=== PATIENT | female | born 1935 | race Caucasian/White ===

== ENCOUNTER → 2016-04-23 | Outpatient (CLI) | payer OTHER, BC ==
[~2016-04-23] MED LIST: ACET-1256 PO; ASPI81TA28 PO; ATOR-24 PO; CEFU500T16 PO; CIPR250T3 PO; CLOP1TAB15 PO; FURO-85 PO; HYDR-4717 PO; LISI40TA PO; MAGN250T16 PO; MAGN250T22 PO; METO100T14 PO; OXGN PO; VTMD PO
[2016-04-23 17:40] LABS: URINE APPEARANCE CLEAR (CLEAR); URINE BILIRUBIN NEG (NEG); URINE COLOR YELLOW; URINE EPITHELIAL CELL AUTO >30 /lpf (0-5); URINE NITRITE NEG (NEG); URINE PH 5.5 (4.5-7.5); URINE SPECIFIC GRAVITY 1.013 (1.000-1.030); UROBILINOGEN NEG (NEG); ZZUR CULT IF INDIC CLEAN CATCH YES
[2016-04-23 17:43] LABS: MANUAL MICROSCOPIC REQUIRED? NO; REVIEW REQ? YES
== END | disposition home or self-care (01) ==
LOC: C.LABBC 13:41
PROVIDERS: ATTEND Urology
DX: Z01.810 Encounter for preprocedural cardiovascular examination (principal); Z01.811 Encounter for preprocedural respiratory examination; Z01.812 Encounter for preprocedural laboratory examination; N39.0 Urinary tract infection, site not specified; N13.30 Unspecified hydronephrosis; N28.9 Disorder of kidney and ureter, unspecified

== ENCOUNTER 2016-05-14 09:01 | Day surgery (SDC) | payer OTHER, BC ==
[2016-04-21 10:09] VITALS: BMI 40.0
--- NOTE | 2016-04-21 10:48 | PAT Medication Instructions ---
Service Date Apr 21, 2016. Current Home Medication List Acetaminophen (Tylenol), 1,000 MG PO TID PRN for Pain Aspirin (Aspirin Ec), 81 MG PO QAM Atorvastatin (Lipitor), 40 MG PO HS Clopidogrel (Plavix), 75 MG PO QAM Ergocalciferol (Vitamin D), 1 TAB PO MONTHLY Furosemide (Lasix), 20 MG PO QAM Hydralazine Hcl (Apresoline), 50 MG PO TID Lisinopril (Zestril), 20 MG PO QAM Magnesium Oxide (Magnesium), 400 MG PO BID Metoprolol Tartrate (Lopressor) (Lopressor), 100 MG PO BID Oxygen (Oxygen), 2 LITERS NA HS Medication Instructions For Your Scheduled Surgery Aspirin (Aspirin Ec), 81 MG PO QAM (per surgeon instructions) Clopidogrel (Plavix), 75 MG PO QAM (per surgeon instructions) Ergocalciferol (Vitamin D), 1 TAB PO MONTHLY (continue as usual) - Hold the following medications the morning of surgery: Magnesium Oxide (Magnesium), 400 MG PO BID Lisinopril (Zestril), 20 MG PO QAM Furosemide (Lasix), 20 MG PO QAM - Take the following medications the morning of surgery with a sip of water: Metoprolol Tartrate (Lopressor) (Lopressor), 100 MG PO BID Hydralazine Hcl (Apresoline), 50 MG PO TID Acetaminophen (Tylenol), 1,000 MG PO TID PRN for Pain (if needed) - Take the following medications as scheduled the night before surgery: Oxygen (Oxygen), 2 LITERS NA HS Metoprolol Tartrate (Lopressor) (Lopressor), 100 MG PO BID Magnesium Oxide (Magnesium), 400 MG PO BID Hydralazine Hcl (Apresoline), 50 MG PO TID Atorvastatin (Lipitor), 40 MG PO HS Acetaminophen (Tylenol), 1,000 MG PO TID PRN for Pain If you have any questions please call us at [phone] or [phone] ( Cele) or [phone]
[2016-04-21 11:15] LABS: BASO % 0.5 %; BASO ABS # 0.04 K/uL (0-0.2); COMPLETE YES; EOS % 5.4 %; HEMATOCRIT 41.3 % (37-47); IG% 0.4 %; LYMPH % 25.5 %; MEAN CELL VOLUME 91.8 fL (80-100); MEAN CORPUSCULAR HEMOGLOBIN 29.6 pg (25-34); MEAN CORPUSCULAR HGB CONC 32.2 g/dl (32-36); MEAN PLATELET VOLUME 11.5 fL (7.4-10.4); MONO % 8.2 %; PLATELET COUNT 167 K/uL (130-400); WHITE BLOOD COUNT 7.84 K/uL (4.8-10.8)
--- NOTE | 2016-04-21 11:27 | DIAGNOSTIC IMAGING REPORT ---
CHEST PREADMISSION(PA/LAT) CLINICAL HISTORY: Preoperative chest COMPARISON STUDY: 08/21/2015 FINDINGS: The heart is mildly enlarged. There is no failure. There is no focal pulmonary consolidation. There are no pleural effusions. There is an old left lacunar fracture. There are small stable periarticular calcification superior to the left humerus.[ IMPRESSION: Mild cardiomegaly. No active disease in the chest. Electronically signed by: Shoaib Duke M.D. 04/21/2016 11:26 AM Dictated Date/Time: 04/21/2016 11:23 AM
[2016-04-21 11:49] LABS: BUN/CREATININE RATIO 26.1 (10-20); CALCIUM 9.2 mg/dl (8.5-10.1); CREATININE 1.8 mg/dl (0.60-1.20); POTASSIUM 4.9 mmol/L (3.5-5.1)
[~2016-05-14] VITALS: Ht 165.1 cm; Wt 109.4 kg
[~2016-05-14 09:01] MED LIST changes: -CEFU500T16 PO; -CIPR250T3 PO; +CIPROFLOXACIN / D5W 400 MG IV SCH; -MAGN250T16 PO; +SODIUM CHLORIDE 0.9% 1000ML 1,000 ML IV SCH
[2016-05-14 10:30] VITALS: BP 195/95; PULSE 61; TEMP 36.8; O2SAT 96; Ht 165.1 cm; Wt 109.4 kg
--- NOTE | 2016-05-14 12:05 | History & Physical Bridge Note ---
H&P Re-Evaluation Bridge Note: I have examined the patient, reviewed the History & Physical and in the interval since the performance of the History & Physical I have noted the following changes of clinical significance: No changes noted
[2016-05-14] MEDS ORDERED: PROPOFOL IV EMULSION 10 MG/ML 20 ML VIAL IV ONE (12:57)
[2016-05-14] MEDS ORDERED: LIDOCAINE HCL 2% 2 ML VIAL (20MG/ML) ONE (12:57)
[2016-05-14] MEDS ORDERED: ONDANSETRON INJ 2 MG/ML 2 ML VIAL ONE (12:58)
[2016-05-14] MEDS ORDERED: FENTANYL CITRATE INJ 50 MCG/1 ML 2 ML VIAL ONE (12:58)
[2016-05-14] MEDS ORDERED: MIDAZOLAM HCL 1 MG/ML 2ML VIAL ONE (12:58)
[2016-05-14] MEDS ORDERED: CONRAY 30% 150ML BOTTLE INSTIL ONE (13:52)
--- NOTE | 2016-05-14 13:53 | DIAGNOSTIC IMAGING REPORT ---
RETROGRADE INCLUDES KUB HISTORY: LT STENT EXCHANGE FLUOROSCOPY TIME: 29 seconds. FINDINGS: 2 fluoroscopic spot images were submitted for review. Initial image demonstrates a catheter with contrast opacification of the left ureter in a retrograde fashion. The second image demonstrates placement of a left ureteral stent. IMPRESSION: Fluoroscopy provided for left ureteral stent exchange. Electronically signed by: Prudencio Reyonso M.D. 05/14/2016 1:51 PM Dictated Date/Time: 05/14/2016 1:51 PM
--- NOTE | 2016-05-14 13:54 | [facility] Post Operative Brief Note ---
Immediate Operative Summary Operative Date May 14, 2016. Pre-Operative Diagnosis Left hydronephrosis with a history of sepsis and renal failure Post-Operative Diagnosis Same Procedure(s) Performed Cystoscopy, retrograde pylogram, and stent exchange, left Surgeon Dr Lawrence Hughes Maintenance Aide Surgeon(s) none Estimated Blood Loss 0 Findings Good stent position Specimens Bladder urine - routine culture and anaerobic culture Drains 6 fr 24 cm soft JJ stent Anesthesia MAC Complication(s) None Disposition Recovery Room / PACU
[2016-05-14] MEDS ORDERED: CIPR250T3 PO (13:55)
--- NOTE | 2016-05-14 13:58 | Discharge Instructions ---
Discharge Instructions Admission Reason for Admission: Hydronephrosis Discharge Discharge Diagnosis / Problem: L hydro, history of renal failure s/p stent exchange Discharge Goals Goal(s): Improve disease control, Therapeutic intervention Activity Recommendations Activity Limitations: resume your previous activity Lifting Limitations: none Exercise/Sports Limitations: none May Resume Sexual Activity: when tolerated Shower/Bathe: no limitations Driving or Machine Use: resume 1 day after discharge . Instructions / Follow-Up Instructions / Follow-Up As scheduled Discharge Diet Recommended Diet: Regular Diet Procedures Procedures Performed: Cystoscopy, retrograde pylogram, and stent exchange, left Pending Studies Studies pending at discharge: no Medical Emergencies . Who to Call and When: Medical Emergencies: If at any time you feel your situation is an emergency, please call 911 immediately. . Non-Emergent Contact Non-Emergency issues call your: Urologist Call Non-Emergent contact if: you have a fever, temperature is above 101, your pain is not controlled, your pain is worsening, your pain is unusual for you, your pain is concerning you, you have any medication questions . . "Provider Documentation" section prepared by Lawrence Hughes. VTE Core Measure Inpt VTE Proph given/why not?: SCD's
[2016-05-14] MEDS ORDERED: OXYCODONE/ACETAMINOPHEN 5-325 TAB PO PRN (14:00)
[2016-05-14] MEDS ORDERED: PHENAZOPYRIDINE HCL 100 MG TAB PO PRN (14:00)
--- NOTE | 2016-05-14 14:04 | OPERATIVE REPORT ---
DATE OF OPERATION: 05/14/2016 PREOPERATIVE DIAGNOSIS: History of left renal mass and left hydronephrosis with renal failure managed with a chronic indwelling stent. POSTOPERATIVE DIAGNOSIS: Same. PROCEDURE: Cystoscopy, left ureteral stent exchange, left retrograde pyelography. SURGEON: Dr. Lawrence Hughes. JOURNALISM INTERN: None. ANESTHESIA: Monitored anesthesia care with sedation. COMPLICATIONS: None. ESTIMATED BLOOD LOSS: Minimal. SPECIMENS SENT TO PATHOLOGY: Urine for culture and sensitivity. DRAINS LEFT IN PLACE: Include a 6-Ku[place]i 24 cm soft double-J ureteral Cook stent. FINDINGS: Good stent position on fluoroscopy. BRIEF HISTORY: Ms. Watson is a pleasant 81-year-old female who was seen as an outpatient for history of renal mass being actively observed and left-sided hydronephrosis with a history of sepsis and renal failure. She is being managed with a chronic indwelling stents and is tolerating it well. Her preoperative urine culture today demonstrates numerous contaminated organisms. She reports that her stent has been continued to be well tolerated. She is here today for a 6 month ureteral stent exchange. Please see H\T\P for further details. Intravenous ciprofloxacin provided for antibiotic coverage. DESCRIPTION OF PROCEDURE: The patient was properly identified and brought to the operative suite after identification of appropriate consent on the chart, monitored anesthesia care with sedation was initiated. The patient was prepped and draped in a standard fashion for this procedure. [employer]-out procedure was followed. A 22-Ku[place]i rigid cystoscope was passed into the bladder under direct visualization and unencrusted stent was appreciated within the bladder lumen. Minimal inflammation of the bladder was noted. Initial urine aliquot was taken and sent for culture and sensitivity. The ureter was noted to be cloudy or otherwise worrisome. The stent was grasped and brought to the level of the meatus. This was then cannulated using a sensor tipped wire and wire was advanced into the level of the left renal pelvis on fluoroscopic guidance. This was followed by an open-ended catheter and the kidney was opacified to ensure good stent position at the end. A sensor tip wire was replaced followed by a 6-[place]i 24 cm double-J ureteral stent with a good full coil present within the pelvis and a good full coil present within the bladder. Bladder was drained and cystoscope was removed, anesthesia was reversed. The patient was transferred to recovery room in stable condition. FOLLOWUP CARE: The patient will be discharged home with a short course of ciprofloxacin. She is instructed to contact our service should she note any fevers, chills, nausea, vomiting or other significant difficulties in the postoperative period. Postoperative appointment is confirmed. I attest to the content of the Intraoperative Record and any orders documented therein. Any exceptio ns are noted below.
--- NOTE | 2016-05-14 14:12 | Anesthesiology Progress Note ---
Anesthesia Post Op Note Date & Time May 14, 2016 at 14:12 Vital Signs Pain Intensity: 0 Vital Signs Past 12 Hours Date Time Temp Pulse Resp B/P Pulse Ox O2 Delivery O2 Flow Rate FiO2 05/14/16 14:10 64 16 146/70 93 Room Air 05/14/16 14:00 85 16 100 Mask 10 05/14/16 13:51 37.0 58 16 143/51 99 Mask 10 05/14/16 10:30 36.8 61 16 195/95 96 Room Air Notes Mental Status: alert / awake / arousable, participated in evaluation Pt Amnestic to Procedure: Yes Nausea / Vomiting: adequately controlled Pain: adequately controlled Airway Patency, RR, SpO2: stable & adequate BP & HR: stable & adequate Hydration State: stable & adequate Anesthetic Complications: no major complications apparent
[2016-05-14] MEDS ORDERED: ATROPINE SULFATE 0.1 MG/ML 5ML SYR IV PRN (14:15)
[2016-05-14] MEDS ORDERED: EpHEDrine SULFATE INJ 50 MG/ML AMP IV PRN (14:15)
[2016-05-14 14:20] VITALS: BP 141/69; PULSE 51; TEMP 36.6; O2SAT 93
[2016-05-14 14:52] VITALS: BP 152/65; PULSE 51; TEMP 36.5; O2SAT 93
[2016-07-22] MEDS ORDERED: MAGN250T16 PO (14:55)
[2016-11-24] MEDS ORDERED: ACET-1256 PO (09:46)
== END 2016-05-14 15:20 | disposition home or self-care (01) ==
LOC: C.ACU 09:01
PROVIDERS: ATTEND Urology
DX: N20.0 Calculus of kidney (principal); Z46.6 Encounter for fitting and adjustment of urinary device; N28.1 Cyst of kidney, acquired; I12.9 Hypertensive chronic kidney disease with stage 1 through stage 4 chronic kidney disease, or unspecified chronic kidney disease; R31.9 Hematuria, unspecified; N18.3 Chronic kidney disease, stage 3 (moderate); I25.10 Atherosclerotic heart disease of native coronary artery without angina pectoris; E78.5 Hyperlipidemia, unspecified; M10.9 Gout, unspecified; E11.9 Type 2 diabetes mellitus without complications; I87.2 Venous insufficiency (chronic) (peripheral); E55.9 Vitamin D deficiency, unspecified; Z86.19 Personal history of other infectious and parasitic diseases

== ENCOUNTER → 2016-06-08 | Outpatient (CLI) | payer OTHER, BC ==
[~2016-06-08] MED LIST changes: +CEFU500T16 PO; +CIPR250T3 PO; -CIPROFLOXACIN / D5W 400 MG IV SCH; +MAGN250T16 PO; -SODIUM CHLORIDE 0.9% 1000ML 1,000 ML IV SCH
[2016-06-08 14:55] LABS: BASO % 0.6 %; BASO ABS # 0.05 K/uL (0-0.2); COMPLETE YES; EOS % 4.6 %; HEMATOCRIT 41.1 % (37-47); IG% 0.2 %; LYMPH % 36.2 %; LYMPH ABS # 3.22 K/uL (1.2-3.4); MEAN CELL VOLUME 91.7 fL (80-100); MEAN CORPUSCULAR HEMOGLOBIN 29.5 pg (25-34); MEAN CORPUSCULAR HGB CONC 32.1 g/dl (32-36); MEAN PLATELET VOLUME 11.4 fL (7.4-10.4); MONO % 8.5 %; NEUT % 49.9 %; PLATELET COUNT 177 K/uL (130-400); RED BLOOD COUNT 4.48 M/uL (4.2-5.4)
[2016-06-08 14:59] LABS: URINE APPEARANCE CLEAR (CLEAR); URINE BILIRUBIN NEG (NEG); URINE COLOR YELLOW; URINE NITRITE NEG (NEG); URINE PH 6.5 (4.5-7.5); URINE SPECIFIC GRAVITY 1.009 (1.000-1.030); UROBILINOGEN NEG (NEG)
[2016-06-08 15:00] LABS: MANUAL MICROSCOPIC REQUIRED? NO; REVIEW REQ? NO
[2016-06-08 15:11] LABS: ALB/GLOB RATIO 0.8 (0.9-2); ALKALINE PHOSPHATASE 116 U/L (45-117); ALT/SGPT 19 U/L (12-78); AST/SGOT 18 U/L (15-37); BLOOD UREA NITROGEN 47 mg/dl (7-18); BUN/CREATININE RATIO 26.4 (10-20); CALCIUM 9.2 mg/dl (8.5-10.1); CARBON DIOXIDE 28 mmol/L (21-32); CHLORIDE 108 mmol/L (98-107); GLUCOSE 115 mg/dl (70-99); SODIUM 143 mmol/L (136-145)
[2016-06-08 15:22] LABS: URINE PROTIEN/CREAT RATIO 1.6 (0-0.2); URINE TOTAL PROTEIN 28.9 mg/dl (0-11.9)
[2016-06-08 15:22] LABS: ESTIMATED AVERAGE GLUCOSE 131 mg/dl; HA1C FLAG Normal (Normal)
== END | disposition home or self-care (01) ==
LOC: C.LABBC 09:49
PROVIDERS: ATTEND Internal Medicine Nephrology
DX: I12.9 Hypertensive chronic kidney disease with stage 1 through stage 4 chronic kidney disease, or unspecified chronic kidney disease (principal); N18.3 Chronic kidney disease, stage 3 (moderate); E11.22 Type 2 diabetes mellitus with diabetic chronic kidney disease; E55.9 Vitamin D deficiency, unspecified; N28.1 Cyst of kidney, acquired; N20.0 Calculus of kidney; R31.9 Hematuria, unspecified

== ENCOUNTER → 2016-08-05 | Day surgery (SDC) | payer OTHER, BC ==
[2016-07-22 14:55] VITALS: Ht 166.4 cm; Wt 110.0 kg
[~2016-08-05] VITALS: Ht 166.4 cm; Wt 110.0 kg
[~2016-08-05] MED LIST changes: +500ML BSS 0.3ML EPI 1:1000PF IRRIG ONE; +ACETAMINOPHEN 325 MG TAB PO PRN; +AMVISC PLUS 0.8ML SYRINGE INT OCU ONE; +ATROPINE SULFATE 0.1 MG/ML 5ML SYR IV PRN; +BETAXOLOL HCL 0.25% OP SUSP PER DROP CHARGE OPR SCH; +BRIMONIDINE TART 0.2% OP SOLN PER DROP CHARGE ONE; +BSS FLUSH ONE; -CIPR250T3 PO; +ENDOCOAT 0.85ML SYRINGE INT OCU ONE; +EpHEDrine SULFATE INJ 50 MG/ML AMP IV PRN; +EpINEphrine INJ 1MG/ML AMP 1 MG/ML AMP ONE; +GENERAL ORDER PROBLEM SCH; +LACTATED RINGER'S 1000ML 500 ML IV SCH; +LIDOCAINE 4% OP SOLN DROP CHARGE ONE; +LIDOCAINE 4% OP SOLN DROP CHARGE OPR SCH; +LIDOCAINE HCL 1% MPF 2 ML VIAL ONE; -MAGN250T22 PO; +MIDAZOLAM HCL 1 MG/ML 2ML VIAL ONE; +MIX: 4ML BSS 1ML EPI 1:1000 PF INSTIL ONE; +MOXIFLOXACIN OPH SOLN PER DROP CHARGE ONE; +OCUCOAT 1 ML SOLN IO ONE; +POVIDONE-IODINE OP SOLN 30 ML BTL ONE; +PROPARACAINE 0.5% OP SOLN PER DROP CHARGE OPR SCH; +TOBRAMYCIN/DEXAMETHASONE OPH OINT PER APPLN CHARGE ONE
[2016-08-05] MEDS: PHENYLEPHRINE HCL 2.5% OP SOLN PER DROP CHARGE OPR SCH ×2 (06:44→06:49)
[2016-08-05] MEDS: TROPICAMIDE 1% OP SOLN PER DROP CHARGE OPR SCH ×2 (06:45→06:50)
[2016-08-05] MEDS: CYCLOPENTOLATE HCL 1% OP SOLN PER DROP CHARGE OPR SCH ×2 (06:46→06:51)
[2016-08-05] MEDS: MOXIFLOXACIN OPH SOLN PER DROP CHARGE OPR SCH ×2 (06:47→06:57)
--- NOTE | 2016-08-05 07:49 | Discharge Instructions-SurgCtr ---
Discharge Instructions Date of Service August 05, 2016. Visit Reason for Visit: Cataract Right Eye Discharge Discharge Diagnosis / Problem: lens implant right eye Discharge Goals Goal(s): Improve function Activity Recommendations Activity Limitations: resume your previous activity Lifting Limitations: no more than 10 pounds Exercise/Sports Limitations: gradually increase as tolerated May Resume Sexual Activity: when tolerated Shower/Bathe: tomorrow Driving or Machine Use: resume 1 day after discharge Anesthesia . Post Anesthesia Instructions: If you have had General Anesthesia or IV Sedation: * Do not drive today. * Resume driving when surgeon permits. * Do not make important decisions or sign legal documents today. * Call surgeon for: 1. Temperature elevations greater than 101 degrees F. 2. Uncontrollable pain. 3. Excessive bleeding. 4. Persistent nausea and vomiting. 5. Medication intolerance (nausea, vomiting or rash). * For nausea and vomiting use only clear liquids such as: tea, soda, bouillon until nausea subsides, then gradually increase diet as tolerated. * If you have any concerns or questions, call your surgeon's office. If physician is unavailable and it is an emergency, call 911 or go to the nearest emergency room. . Instructions / Follow-Up Instructions / Follow-Up ACTIVITY RECOMMENDATIONS: * Light activities. * Mild irritation and blurred vision are common for the first few days. * You may walk outside, read, watch television. * Redness around the white part of the eye is common. MEDICATIONS: Resume previous medications unless instructed otherwise by your surgeon. Start all eye drops at 1 pm today: * Eye drops (today and tomorrow): Prednisone - one drop in operative eye every 3 hours while awake Ofloxacin - one drop in operative eye every 3 hours while awake Ilevro - one drop in operative eye once a day SPECIAL CARE INSTRUCTIONS: * Tape plastic shield over eye to sleep at night. Call your doctor at with any concerns or problems. FOLLOW UP VISIT: Follow-up with Dr Arreola at [place] office as scheduled. Diet Recommendations Home Diet: no limitations Procedures Procedures Performed: Right Cataract Phacoemulsification With Intraocular Lens Implant Pending Studies Studies pending at discharge: no Medical Emergencies . Who to Call and When: Medical Emergencies: If at any time you feel your situation is an emergency, please call 911 immediately. . Non-Emergent Contact Non-Emergency issues call your: Web Applications Programmer Call Non-Emergent contact if: your pain is not controlled [phone] . . "Provider Documentation" section prepared by Nick Arreola. .
--- NOTE | 2016-08-05 07:51 | [facility] Operative Report ---
Operative Report Date of Service August 05, 2016. Operative Report 1. PREOPERATIVE DIAGNOSIS: Senile nuclear cataract, right eye. 2. POSTOPERATIVE DIAGNOSIS: Senile nuclear cataract, right eye. 3. PROCEDURE: Phacoemulsification of right cataract with posterior chamber lens implant, type Bausch & Lomb, model MX60, power +22 diopters. ANESTHESIA: Local standby. SURGEON: Dr. Arreola. COMPLICATIONS: None. OPERATING TIME: 10 minutes. 4. OPERATION AND FINDINGS: DESCRIPTION OF PROCEDURE: The right pupil was dilated. The anesthetic was administered using a topical technique. The right eye was prepped and draped. A speculum was placed. A clear corneal incision was formed. The chamber was filled with Amvisc Plus and Endocoat. Epinephrine solution was used. A paracentesis was placed. A capsulorrhexis was performed. The nucleus was hydrodissected. The lens was removed with phacoemulsification. Time was 6.11 seconds. The aspiration unit was used to remove the cortex. The capsule was filled with Amvisc Plus. The lens implant was folded and placed into the capsule. The incision was hydrated. The Amvisc was aspirated. The wound was secure. The chamber was deep. The pupil was round. Brimonidine, TobraDex ointment and Vigamox solution were placed. The speculum was removed. The patient was returned to the Recovery Room in stable condition. I attest to the content of the Intraoperative Record and any orders documented therein. Any exceptions are noted below. The scribe's documentation has been prepared in my presence, under my direction and personally reviewed by me in its entirety. I confirm that the note above accurately reflects all work, treatment, procedures, and medical decision making performed by me. I personally scribed for Nick Arreola M.D. ([email or web address]) on 08/05/16 at 07:51. Electronically submitted by Nalini Noel ([facility]).
[2016-08-05 07:53] VITALS: TEMP 37.3
[2016-08-05 08:14] VITALS: BP 158/79; PULSE 66; O2SAT 95
--- NOTE | 2016-08-05 08:17 | Anesthesia Progress Nt - [facility] ---
Anesthesia Post Op Note Date & Time August 05, 2016 at 08:17 Vital Signs Pain Intensity: 0 Vital Signs Past 12 Hours Date Time Temp Pulse Resp B/P Pulse Ox O2 Delivery O2 Flow Rate FiO2 08/05/16 08:14 66 18 158/79 95 Room Air 08/05/16 07:53 37.3 68 16 179/73 95 Room Air 08/05/16 06:34 36.7 63 16 189/71 95 Room Air Notes Mental Status: alert / awake / arousable, participated in evaluation Pt Amnestic to Procedure: Yes Nausea / Vomiting: adequately controlled Pain: adequately controlled Airway Patency, RR, SpO2: stable & adequate BP & HR: stable & adequate Hydration State: stable & adequate Anesthetic Complications: no major complications apparent
== END | disposition home or self-care (01) ==
LOC: X.SURG 06:07
PROVIDERS: ATTEND Specialist
DX: H25.11 Age-related nuclear cataract, right eye (principal); I48.91 Unspecified atrial fibrillation; I12.9 Hypertensive chronic kidney disease with stage 1 through stage 4 chronic kidney disease, or unspecified chronic kidney disease; E11.22 Type 2 diabetes mellitus with diabetic chronic kidney disease; N18.9 Chronic kidney disease, unspecified; I25.10 Atherosclerotic heart disease of native coronary artery without angina pectoris; Z88.1 Allergy status to other antibiotic agents; Z90.89 Acquired absence of other organs; Z98.890 Other specified postprocedural states; I25.2 Old myocardial infarction; G47.33 Obstructive sleep apnea (adult) (pediatric); E66.9 Obesity, unspecified; Z68.39 Body mass index [BMI] 39.0-39.9, adult

== ENCOUNTER → 2016-08-26 | Day surgery (SDC) | payer OTHER, BC ==
[2016-08-19 11:13] VITALS: Ht 166.4 cm; Wt 110.0 kg
[~2016-08-26] VITALS: Ht 166.4 cm; Wt 110.0 kg
[~2016-08-26] MED LIST changes: +AcetaZOLAMIDE 250 MG TAB PO SCH; +BETAXOLOL HCL 0.25% OP SUSP PER DROP CHARGE OPL SCH; -BETAXOLOL HCL 0.25% OP SUSP PER DROP CHARGE OPR SCH; -BSS FLUSH ONE; -EpHEDrine SULFATE INJ 50 MG/ML AMP IV PRN; -GENERAL ORDER PROBLEM SCH; +LABETALOL HCL IV 5 MG/ML 20ML IV ONE; +LIDOCAINE 4% OP SOLN DROP CHARGE OPL SCH; -LIDOCAINE 4% OP SOLN DROP CHARGE OPR SCH; +PROPARACAINE 0.5% OP SOLN PER DROP CHARGE OPL SCH; -PROPARACAINE 0.5% OP SOLN PER DROP CHARGE OPR SCH
[2016-08-26] MEDS: PHENYLEPHRINE HCL 2.5% OP SOLN PER DROP CHARGE OPL SCH ×2 (08:57→09:04)
[2016-08-26] MEDS: TROPICAMIDE 1% OP SOLN PER DROP CHARGE OPL SCH ×2 (08:58→09:05)
[2016-08-26] MEDS: CYCLOPENTOLATE HCL 1% OP SOLN PER DROP CHARGE OPL SCH ×2 (08:59→09:06)
[2016-08-26] MEDS: MOXIFLOXACIN OPH SOLN PER DROP CHARGE OPL SCH ×2 (09:00→09:10)
--- NOTE | 2016-08-26 10:08 | Discharge Instructions-SurgCtr ---
Discharge Instructions Date of Service Aug 26, 2016. Visit Reason for Visit: Cataract Left Eye Discharge Discharge Diagnosis / Problem: lens implant left eye Discharge Goals Goal(s): Improve function Activity Recommendations Activity Limitations: resume your previous activity Lifting Limitations: no more than 10 pounds Exercise/Sports Limitations: gradually increase as tolerated May Resume Sexual Activity: when tolerated Shower/Bathe: tomorrow Driving or Machine Use: resume 1 day after discharge Anesthesia . Post Anesthesia Instructions: If you have had General Anesthesia or IV Sedation: * Do not drive today. * Resume driving when surgeon permits. * Do not make important decisions or sign legal documents today. * Call surgeon for: 1. Temperature elevations greater than 101 degrees F. 2. Uncontrollable pain. 3. Excessive bleeding. 4. Persistent nausea and vomiting. 5. Medication intolerance (nausea, vomiting or rash). * For nausea and vomiting use only clear liquids such as: tea, soda, bouillon until nausea subsides, then gradually increase diet as tolerated. * If you have any concerns or questions, call your surgeon's office. If physician is unavailable and it is an emergency, call 911 or go to the nearest emergency room. . Instructions / Follow-Up Instructions / Follow-Up ACTIVITY RECOMMENDATIONS: * Light activities. * Mild irritation and blurred vision are common for the first few days. * You may walk outside, read, watch television. * Redness around the white part of the eye is common. MEDICATIONS: Resume previous medications unless instructed otherwise by your surgeon. Start all eye drops at 1 pm today: * Eye drops (today and tomorrow): Durezol - one drop in operative eye every 3 hours while awake Ofloxacin - one drop in operative eye every 3 hours while awake SPECIAL CARE INSTRUCTIONS: * Tape plastic shield over eye to sleep at night. Call your doctor at with any concerns or problems. FOLLOW UP VISIT: Follow-up with Dr Arreola at [place] office as scheduled. Diet Recommendations Home Diet: no limitations Procedures Procedures Performed: cataract extraction with lens implant Pending Studies Studies pending at discharge: no Medical Emergencies . Who to Call and When: Medical Emergencies: If at any time you feel your situation is an emergency, please call 911 immediately. . Non-Emergent Contact Non-Emergency issues call your: Chocolate Maker Call Non-Emergent contact if: your pain is not controlled [phone] . . "Provider Documentation" section prepared by Nick Arreola. .
--- NOTE | 2016-08-26 10:10 | [facility] Operative Report ---
Operative Report Date of Service Aug 26, 2016. Operative Report 1. PREOPERATIVE DIAGNOSIS: Senile nuclear cataract, left eye. 2. POSTOPERATIVE DIAGNOSIS: Senile nuclear cataract, left eye. 3. PROCEDURE: Phacoemulsification of left cataract with posterior chamber lens implant, type Bausch & Lomb, model MX60, power +22 diopters. ANESTHESIA: Local standby. SURGEON: Dr. Arreola. COMPLICATIONS: None. OPERATING TIME: 10 minutes. 4. OPERATION AND FINDINGS: DESCRIPTION OF PROCEDURE: The left pupil was dilated. The anesthetic was administered using a topical technique. The left eye was prepped and draped. A speculum was placed. A clear corneal incision was formed. The chamber was filled with Amvisc Plus and Endocoat. Epinephrine solution was used. A paracentesis was placed. A capsulorrhexis was performed. The nucleus was hydrodissected. A lens was removed with phacoemulsification. Time was 9.18 seconds. The aspiration unit was used to remove the cortex. The capsule was filled with Amvisc Plus. The lens implant was folded and placed into the capsule. The incision was hydrated. The Amvisc was aspirated. The wound was secure. The chamber was deep. The pupil was round. Brimonidine, TobraDex ointment and Vigamox solution were placed. The speculum was removed. The patient was returned to the Recovery Room in stable condition. I attest to the content of the Intraoperative Record and any orders documented therein. Any exceptions are noted below. The scribe's documentation has been prepared in my presence, under my direction and personally reviewed by me in its entirety. I confirm that the note above accurately reflects all work, treatment, procedures, and medical decision making performed by me. I personally scribed for Nick Arreola M.D. ([email or web address]) on 08/26/16 at 10:10. Electronically submitted by Nalini Noel ([email or web address]).
[2016-08-26 10:11] VITALS: TEMP 36.9
--- NOTE | 2016-08-26 10:24 | Anesthesia Progress Nt - [facility] ---
Anesthesia Post Op Note Date & Time Aug 26, 2016 at 10:24 Vital Signs Pain Intensity: 0 Vital Signs Past 12 Hours Date Time Temp Pulse Resp B/P (MAP) Pulse Ox O2 Delivery O2 Flow Rate FiO2 08/26/16 10:11 36.9 76 16 189/80 (116) 95 Room Air 08/26/16 08:45 36.9 67 20 176/71 (106) 96 Room Air Notes Mental Status: alert / awake / arousable, participated in evaluation Pt Amnestic to Procedure: Yes Nausea / Vomiting: adequately controlled Pain: adequately controlled Airway Patency, RR, SpO2: stable & adequate BP & HR: stable & adequate Hydration State: stable & adequate Anesthetic Complications: no major complications apparent
[2016-08-26 10:35] VITALS: BP 187/62; PULSE 56; O2SAT 95
== END | disposition home or self-care (01) ==
LOC: X.SURG 08:10
PROVIDERS: ATTEND Specialist
DX: H25.12 Age-related nuclear cataract, left eye (principal); I10 Essential (primary) hypertension; I51.9 Heart disease, unspecified

== ENCOUNTER → 2016-10-20 | Outpatient (CLI) | payer OTHER, BC ==
[~2016-10-20] MED LIST changes: -500ML BSS 0.3ML EPI 1:1000PF IRRIG ONE; -ACETAMINOPHEN 325 MG TAB PO PRN; -AMVISC PLUS 0.8ML SYRINGE INT OCU ONE; -ATROPINE SULFATE 0.1 MG/ML 5ML SYR IV PRN; -AcetaZOLAMIDE 250 MG TAB PO SCH; -BETAXOLOL HCL 0.25% OP SUSP PER DROP CHARGE OPL SCH; -BRIMONIDINE TART 0.2% OP SOLN PER DROP CHARGE ONE; -ENDOCOAT 0.85ML SYRINGE INT OCU ONE; -EpINEphrine INJ 1MG/ML AMP 1 MG/ML AMP ONE; -LABETALOL HCL IV 5 MG/ML 20ML IV ONE; -LACTATED RINGER'S 1000ML 500 ML IV SCH; -LIDOCAINE 4% OP SOLN DROP CHARGE ONE; -LIDOCAINE 4% OP SOLN DROP CHARGE OPL SCH; -LIDOCAINE HCL 1% MPF 2 ML VIAL ONE; -MIDAZOLAM HCL 1 MG/ML 2ML VIAL ONE; -MIX: 4ML BSS 1ML EPI 1:1000 PF INSTIL ONE; -MOXIFLOXACIN OPH SOLN PER DROP CHARGE ONE; -OCUCOAT 1 ML SOLN IO ONE; -POVIDONE-IODINE OP SOLN 30 ML BTL ONE; -PROPARACAINE 0.5% OP SOLN PER DROP CHARGE OPL SCH; -TOBRAMYCIN/DEXAMETHASONE OPH OINT PER APPLN CHARGE ONE
[2016-10-20 13:47] LABS: ESTIMATED AVERAGE GLUCOSE 128 mg/dl; HA1C FLAG Normal (Normal)
[2016-10-20 14:07] LABS: CHOLESTEROL/HDL RATIO 3.1; THYROID STIMULATING HORMONE 2.18 uIu/ml (0.300-4.500)
== END | disposition home or self-care (01) ==
LOC: C.LABBC 09:42
PROVIDERS: ATTEND Internal Medicine Geriatric Medicine
DX: Z00.00 Encounter for general adult medical examination without abnormal findings (principal); E11.9 Type 2 diabetes mellitus without complications

== ENCOUNTER → 2016-11-24 | Outpatient (CLI) | payer OTHER, BC ==
--- NOTE | 2016-11-24 11:53 | DIAGNOSTIC IMAGING REPORT ---
MRI OF THE ABDOMEN WITHOUT IV CONTRAST CLINICAL HISTORY: Chronic kidney disease. COMPARISON STUDY: Abdominal CT dated 08/21/2015. Abdominal MRI dated 05/10/2015 an 02/02/2013. TECHNIQUE: MRI of the abdomen is performed utilizing various T1 and T2-weighted sequences in the axial and coronal planes. IV contrast was not administered for this examination. The examination is degraded by large body habitus, motion artifact, and lack of IV contrast. FINDINGS: Lung bases: No pleural effusion is identified. A hiatal hernia is noted. No pericardial effusion is seen. Liver: The unenhanced liver is normal in size, contour, and signal intensity. There is no intrahepatic biliary ductal dilatation. Gallbladder: Unremarkable. Spleen: Normal in size and signal intensity. Pancreas: The pancreas appears atrophic. Multiple tiny pancreatic cystic lesions measuring up to 9 mm are similar to prior studies. Adrenal glands: Unremarkable. Kidneys: The unenhanced kidneys are atrophic. Foci of cortical scarring are present in both kidneys. No hydronephrosis is seen. A complex 2.7 cm lesion arising from the interpolar right kidney, and a 2.8 cm complex lesion in the interpolar left kidney have not changed from a prior studies. Additional subcentimeter lesions are also unchanged. Abdominal aorta: Normal in course and caliber. Atherosclerotic irregularity is observed. Bowel: There is no evidence of bowel obstruction. Peritoneum: No abdominal ascites is seen. Lymphadenopathy: None. Skeletal structures: No destructive bony lesion is suggested. Spondylotic change is observed. IMPRESSION: 1. The kidneys are atrophic and demonstrates foci of cortical scarring. Left-sided hydronephrosis has resolved from 08/21/2015. 2. Bilateral complex renal lesions are unchanged from prior studies. These likely represent complex/hemorrhagic cyst but cannot be definitively characterized without IV contrast. 3. Subcentimeter cystic pancreatic lesions are unchanged from prior studies and are of doubtful significance given long-term stability. 4. Additional findings as above. Electronically signed by: Ervin Cat M.D. 11/24/2016 11:51 AM Dictated Date/Time: 11/24/2016 11:40 AM
== END | disposition home or self-care (01) ==
LOC: C.MRI 10:56
PROVIDERS: ATTEND Urology
DX: N18.3 Chronic kidney disease, stage 3 (moderate) (principal); K86.9 Disease of pancreas, unspecified; N28.9 Disorder of kidney and ureter, unspecified

== ENCOUNTER 2016-12-10 06:01 | Day surgery (SDC) | payer OTHER, BC ==
[2016-11-24 09:48] VITALS: BMI 42.0
--- NOTE | 2016-11-24 10:21 | PAT Medication Instructions ---
Service Date Nov 24, 2016. Current Home Medication List Acetaminophen (Tylenol), 1,000 MG PO TID PRN for RN Aspirin (Aspirin Ec), 81 MG PO QAM Atorvastatin (Lipitor), 40 MG PO HS Clopidogrel (Plavix), 75 MG PO QAM Ergocalciferol (Vitamin D), 1 TAB PO MONTHLY Furosemide (Lasix), 20 MG PO QAM Home O2 Therapy (Oxygen), 2 LITERS PO HS Hydralazine Hcl (Apresoline), 50 MG PO TID Lisinopril (Zestril), 20 MG PO QAM Magnesium Oxide (Mg Supplement (Magnesium Oxide), 1 TAB PO DIRECTED Metoprolol Tartrate (Lopressor) (Lopressor), 100 MG PO BID Medication Instructions For Your Scheduled Surgery Ergocalciferol (Vitamin D), 1 TAB PO MONTHLY - Check with surgeon for surgeon/locate technician for instructions: Clopidogrel (Plavix), 75 MG PO QAM Aspirin (Aspirin Ec), 81 MG PO QAM - Hold the following medications the morning of surgery: Furosemide (Lasix), 20 MG PO QAM Lisinopril (Zestril), 20 MG PO QAM Magnesium Oxide (Mg Supplement (Magnesium Oxide), 1 TAB PO DIRECTED - Take the following medications the morning of surgery with a sip of water: Metoprolol Tartrate (Lopressor) (Lopressor), 100 MG PO BID Hydralazine Hcl (Apresoline), 50 MG PO TID Acetaminophen (Tylenol), 1,000 MG PO TID PRN for RN (if needed) - Take the following medications as scheduled the night before surgery: Metoprolol Tartrate (Lopressor) (Lopressor), 100 MG PO BID Hydralazine Hcl (Apresoline), 50 MG PO TID Home O2 Therapy (Oxygen), 2 LITERS PO HS Acetaminophen (Tylenol), 1,000 MG PO TID PRN for RN (if needed) Atorvastatin (Lipitor), 40 MG PO HS If you have any questions please call us at [phone] or [phone] or [phone]
[2016-11-24 11:05] LABS: BASO % 0.4 %; BASO ABS # 0.03 K/uL (0-0.2); COMPLETE YES; EOS % 4.9 %; HEMATOCRIT 38.7 % (37-47); IG% 0.3 %; LYMPH % 33.5 %; LYMPH ABS # 2.33 K/uL (1.2-3.4); MEAN CELL VOLUME 93.9 fL (80-100); MEAN CORPUSCULAR HEMOGLOBIN 29.6 pg (25-34); MEAN CORPUSCULAR HGB CONC 31.5 g/dl (32-36); MEAN PLATELET VOLUME 11.1 fL (7.4-10.4); MONO % 7.3 %; NEUT % 53.6 %; PLATELET COUNT 158 K/uL (130-400); RED BLOOD COUNT 4.12 M/uL (4.2-5.4); WHITE BLOOD COUNT 6.95 K/uL (4.8-10.8)
[2016-11-24 11:08] LABS: URINE APPEARANCE CLEAR (CLEAR); URINE BILIRUBIN NEG (NEG); URINE COLOR YELLOW; URINE EPITHELIAL CELL AUTO >30 /lpf (0-5); URINE NITRITE POS (NEG); URINE PH 6.5 (4.5-7.5); URINE SPECIFIC GRAVITY 1.014 (1.000-1.030); UROBILINOGEN NEG (NEG)
[2016-11-24 11:12] LABS: MANUAL MICROSCOPIC REQUIRED? NO; REVIEW REQ? NO
[2016-11-24 11:33] LABS: BUN/CREATININE RATIO 26.4 (10-20); CALCIUM 9.2 mg/dl (8.5-10.1); CREATININE 1.8 mg/dl (0.60-1.20); POTASSIUM 4.8 mmol/L (3.5-5.1)
[~2016-12-10] VITALS: Ht 165.1 cm; Wt 114.5 kg
[~2016-12-10 06:01] MED LIST changes: -CEFU500T16 PO; +CIPROFLOXACIN / D5W 400 MG IV SCH; +SODIUM CHLORIDE 0.9% 1000ML 1,000 ML IV SCH
[2016-12-10] MEDS ORDERED: CEFU500T16 PO (06:36)
[2016-12-10 06:39] VITALS: BP 186/80; PULSE 57; TEMP 37; O2SAT 96; Ht 165.1 cm; Wt 114.5 kg
--- NOTE | 2016-12-10 07:02 | History & Physical Bridge Note ---
H&P Re-Evaluation Bridge Note: I have examined the patient, reviewed the History & Physical and in the interval since the performance of the History & Physical I have noted the following changes of clinical significance: cysto, left stent exchange.
[2016-12-10] MEDS ORDERED: FENTANYL CITRATE INJ 50 MCG/1 ML 2 ML VIAL ONE (07:26)
[2016-12-10] MEDS ORDERED: MIDAZOLAM HCL 1 MG/ML 2ML VIAL ONE (07:26)
[2016-12-10] MEDS ORDERED: PROPOFOL IV EMULSION 10 MG/ML 20 ML VIAL IV ONE (07:27)
[2016-12-10] MEDS ORDERED: LIDOCAINE HCL 2% 2 ML VIAL (20MG/ML) ONE (07:27)
[2016-12-10] MEDS ORDERED: EpHEDrine SULFATE INJ 50 MG/ML AMP IV PRN (08:00)
[2016-12-10] MEDS ORDERED: ATROPINE SULFATE 0.1 MG/ML 5ML SYR IV PRN (08:00)
[2016-12-10] MEDS ORDERED: CONRAY 30% 150ML BOTTLE ONE (08:03)
[2016-12-10] MEDS ORDERED: CEFAZOLIN SOD 1 GM VIAL ONE (08:35)
[2016-12-10] MEDS ORDERED: OXYCODONE/ACETAMINOPHEN 5-325 TAB PO PRN (08:45)
[2016-12-10] MEDS ORDERED: PHENAZOPYRIDINE HCL 100 MG TAB PO PRN (08:45)
--- NOTE | 2016-12-10 08:45 | Discharge Instructions ---
Discharge Instructions Date of Service Dec 10, 2016. Admission Reason for Admission: Hydronephrosis Discharge Discharge Diagnosis / Problem: L hydro s/p stent exchange Discharge Goals Goal(s): Improve function, Therapeutic intervention Activity Recommendations Activity Limitations: as noted below Lifting Limitations: no more than 25 pounds, gradually increase as tolerated Exercise/Sports Limitations: rest today, gradually increase as tolerated May Resume Sexual Activity: when tolerated Shower/Bathe: no limitations Driving or Machine Use: resume 1 day after discharge . Instructions / Follow-Up Instructions / Follow-Up As scheduled in office Discharge Diet Recommended Diet: Regular Diet Procedures Procedures Performed: Cystoscopy Left Retrograde Pyelogram; Left Stent Exchange Pending Studies Studies pending at discharge: no Laboratory Results Hemoglobin A1c Test 10/20/16 09:47 Range/Units Estimated Average Glucose 128 mg/dl Hemoglobin A1c 6.1 H 4.5-5.6 % Lipid Panel Test 10/20/16 09:47 Range/Units Triglycerides Level 194 H 0-150 mg/dl Cholesterol Level 159 0-200 mg/dl HDL Cholesterol 51 mg/dl Cholesterol/HDL Ratio 3.1 LDL Cholesterol, Calculated 69 mg/dl Medical Emergencies . Who to Call and When: Medical Emergencies: If at any time you feel your situation is an emergency, please call 911 immediately. . Non-Emergent Contact Non-Emergency issues call your: Urologist Call Non-Emergent contact if: you have a fever, temperature is above 101, your pain is not controlled, your pain is worsening, your pain is unusual for you, your pain is concerning you, you have any medication questions . . "Provider Documentation" section prepared by Lawrence Hughes. . VTE Core Measure Inpt VTE Proph given/why not?: SCD's
--- NOTE | 2016-12-10 08:46 | [facility] Post Operative Brief Note ---
Immediate Operative Summary Operative Date Dec 10, 2016. Pre-Operative Diagnosis Hydronephrosis of left kidney; recurrent UTI; renal lesion Post-Operative Diagnosis Same as preop Procedure(s) Performed Cystoscopy Left Retrograde Pyelogram; Left Stent Exchange Surgeon Dr. Ricardo Hughes Code Enforcement Supervisor Surgeon(s) NA Estimated Blood Loss 0 ml Findings Good stent position after completion on fluoro Specimens None, as per surgeon Drains 6 fr 24 cm firm L cook ureteral stent Anesthesia MAC Complication(s) None Disposition Recovery Room / PACU
--- NOTE | 2016-12-10 08:49 | [facility] Operative Report ---
Operative Report Operative Date Dec 10, 2016. Pre-Operative Diagnosis Hydronephrosis of left kidney; recurrent UTI; renal lesion Post-Operative Diagnosis Same as preop Procedure(s) Performed Cystoscopy Left Retrograde Pyelogram; Left Stent Exchange Surgeon Dr. Ricardo Hughes Day Care Home Provider Surgeon(s) NA Estimated Blood Loss 0 ml Findings Good stent position after completion on fluoro Specimens None, as per surgeon Drains 6 fr 24 cm firm L cook ureteral stent Anesthesia MAC Complication(s) None Disposition Recovery Room / PACU Indications Pleasant 81-year-old female who had seen as an outpatient for history of left-sided renal obstruction with previous renal failure and urosepsis. She has been managed with an indwelling left ureteral stent which is currently being changed every 6 months. She is tolerating this well. She has been pretreated for her positive urine culture with appropriate antibiotics 2 days. No other complaints. SCDs used for DVT prophylaxis and appropriate culture specific IV antibiotics are also used. Please see H&P for further details. Description of Procedure Patient was properly identified and brought to the operative suite after identification of appropriate consent of the chart. Monitored anesthesia care with sedation was initiated and patient was prepped and draped in the standard fashion for this procedure. Full timeout procedure was followed. 22 Canadian rigid cystoscope was passed in the bladder under direct visualization and the tip of the stent was grasped and brought to the meatus. [id number] bladder inflammation, consistent with the patient's previous findings are noted. Stent was cannulated using a sensor tip wire which was able to be advanced through the stent up to the level of the renal pelvis. Stent was noted to be minimally encrusted and patent. A open-ended catheter was advanced up to the level of the left renal pelvis which was opacified using contrast demonstrating no significant filling defects or dilation. Sensor tip wire was replaced and followed with a 6 Canadian 24 cm double-J firm Cook ureteral stent. Full coil was present within the renal pelvis and a full coil present within the bladder with a hydronephrotic drip. Bladder was drained and cystoscope was removed. Anesthesia was reversed and patient was transferred the recovery room in stable condition. Follow-up care: No new prescriptions are provided. Patient complete antibiotics as prescribed. Outpatient postoperative check is confirmed. Patient to contact that should she suffer from any difficulties in the postoperative period such as fevers, chills, nausea, vomiting or other adverse symptoms. I attest to the content of the Intraoperative Record and any orders documented therein. Any exceptions are noted below.
--- NOTE | 2016-12-10 08:57 | Anesthesiology Progress Note ---
Anesthesia Post Op Note Date & Time Dec 10, 2016 at 08:57 Vital Signs Pain Intensity: 0 Vital Signs Past 12 Hours Date Time Temp Pulse Resp B/P (MAP) Pulse Ox O2 Delivery O2 Flow Rate FiO2 12/10/16 08:45 55 15 135/56 98 Oxymask 10 12/10/16 08:44 36.0 59 19 150/63 98 Oxymask 10 12/10/16 06:39 37 57 18 186/80 (115) 96 Room Air Notes Mental Status: alert / awake / arousable, participated in evaluation Pt Amnestic to Procedure: Yes Nausea / Vomiting: adequately controlled Pain: adequately controlled Airway Patency, RR, SpO2: stable & adequate BP & HR: stable & adequate Hydration State: stable & adequate Anesthetic Complications: no major complications apparent
--- NOTE | 2016-12-10 09:10 | DIAGNOSTIC IMAGING REPORT ---
FLUOROSCOPIC IMAGES FROM LEFT RETROGRADE EXAM CLINICAL HISTORY: LEFT RETROGRADE AND STENT EXCHANGE COMPARISON STUDY: Retrograde exam May 14, 2016 and MRI of the abdomen November 24, 2016. Fluoroscopy time: 1 minute and 27 seconds. FINDINGS: 5 fluoroscopic images were submitted for interpretation. Initial image demonstrates a left ureteral stent. There is opacification of the left collecting system. Stent exchange is noted. Proximal aspect of stent projects over the left renal pelvis. Distal aspect was not visualized on these images. IMPRESSION: Fluoroscopic images from left retrograde exam with stent exchange. Electronically signed by: Bruce Montes M.D. 12/10/2016 9:09 AM Dictated Date/Time: 12/10/2016 9:07 AM
[2016-12-10 09:25] VITALS: BP 167/67; PULSE 53; TEMP 36.5; O2SAT 98
[2016-12-10 09:55] VITALS: BP 140/77; PULSE 52; O2SAT 92
[2016-12-10 10:25] VITALS: BP 144/65; PULSE 53; TEMP 36.4; O2SAT 93
== END 2016-12-10 11:00 | disposition home or self-care (01) ==
LOC: C.ACU 06:01
PROVIDERS: ATTEND Urology
DX: N13.30 Unspecified hydronephrosis (principal); I25.10 Atherosclerotic heart disease of native coronary artery without angina pectoris; E11.42 Type 2 diabetes mellitus with diabetic polyneuropathy; E78.5 Hyperlipidemia, unspecified; M10.9 Gout, unspecified; Z87.440 Personal history of urinary (tract) infections; Z90.49 Acquired absence of other specified parts of digestive tract; Z79.82 Long term (current) use of aspirin; N39.0 Urinary tract infection, site not specified; R31.9 Hematuria, unspecified

== ENCOUNTER → 2016-12-11 | Outpatient (CLI) | payer OTHER, BC ==
[~2016-12-11] MED LIST changes: +CEFU500T16 PO; -CIPROFLOXACIN / D5W 400 MG IV SCH; -SODIUM CHLORIDE 0.9% 1000ML 1,000 ML IV SCH
[2016-12-12 13:23] LABS: URINE APPEARANCE CLEAR (CLEAR); URINE BILIRUBIN NEG (NEG); URINE COLOR YELLOW; URINE NITRITE NEG (NEG); URINE SPECIFIC GRAVITY 1.015 (1.000-1.030); UROBILINOGEN NEG (NEG)
[2016-12-12 13:31] LABS: URINE PROTIEN/CREAT RATIO 0.9 (0-0.2); URINE TOTAL PROTEIN 30.2 mg/dl (0-11.9)
[2016-12-12 13:33] LABS: MANUAL MICROSCOPIC REQUIRED? NO; REVIEW REQ? NO
== END | disposition home or self-care (01) ==
LOC: C.LABBC 11:26
PROVIDERS: ATTEND Internal Medicine Nephrology
DX: I12.9 Hypertensive chronic kidney disease with stage 1 through stage 4 chronic kidney disease, or unspecified chronic kidney disease (principal); N18.3 Chronic kidney disease, stage 3 (moderate); E55.9 Vitamin D deficiency, unspecified; N20.0 Calculus of kidney; N28.9 Disorder of kidney and ureter, unspecified

== ENCOUNTER 2017-06-10 08:22 | Day surgery (SDC) | payer OTHER, BC ==
[2017-05-19 10:34] VITALS: BMI 43.0
--- NOTE | 2017-05-19 11:00 | PAT Medication Instructions ---
Service Date May 19, 2017. Current Home Medication List Acetaminophen (Tylenol), 1,000 MG PO TID PRN for RN Aspirin (Aspirin Ec), 81 MG PO QAM Atorvastatin (Lipitor), 40 MG PO HS Clopidogrel (Plavix), 75 MG PO QAM Ergocalciferol (Vitamin D 29528 Unit), 50,000 UNIT PO MONTHLY Furosemide (Lasix), 20 MG PO QAM Home O2 Therapy (Oxygen), 2 LITERS NA HS Hydralazine Hcl (Apresoline), 50 MG PO TID Lisinopril (Zestril), 20 MG PO QAM Magnesium Oxide (Mg Supplement (Magnesium Oxide), 1 TAB PO DIRECTED Metoprolol Tartrate (Lopressor) (Lopressor), 100 MG PO BID Medication Instructions For Your Scheduled Surgery - Continue as directed: Ergocalciferol (Vitamin D 47500 Unit), 50,000 UNIT PO MONTHLY - Hold the following medications the morning of surgery: Furosemide (Lasix), 20 MG PO QAM Lisinopril (Zestril), 20 MG PO QAM Magnesium Oxide (Mg Supplement (Magnesium Oxide), 1 TAB PO DIRECTED - Take the following medications the morning of surgery with a sip of water: Acetaminophen (Tylenol), 1,000 MG PO TID PRN for RN (okay to take up to 4 hours prior to surgery if needed) Aspirin (Aspirin Ec), 81 MG PO QAM (okay to continue per surgeon) Clopidogrel (Plavix), 75 MG PO QAM (okay to continue per surgeon) Hydralazine Hcl (Apresoline), 50 MG PO TID Metoprolol Tartrate (Lopressor) (Lopressor), 100 MG PO BID - Take the following medications as scheduled the night before surgery: Acetaminophen (Tylenol), 1,000 MG PO TID PRN for RN Metoprolol Tartrate (Lopressor) (Lopressor), 100 MG PO BID Atorvastatin (Lipitor), 40 MG PO HS Home O2 Therapy (Oxygen), 2 LITERS NA HS Hydralazine Hcl (Apresoline), 50 MG PO TID If you have any questions please call us at [phone] or [phone] or [phone]
--- NOTE | 2017-05-19 11:39 | DIAGNOSTIC IMAGING REPORT ---
CHEST 2 VIEWS ROUTINE CLINICAL HISTORY: 82 years-old Female presenting with preoperative assessment. TECHNIQUE: PA and lateral views of the chest were obtained. COMPARISON: 04/21/2016. FINDINGS: Atherosclerosis of aortic arch. Cardiac silhouette enlarged. Lungs and pleural spaces clear. Degenerative changes of the thoracic spine. Partially visualized ureteral stent. IMPRESSION: 1. Cardiomegaly without evidence of acute cardiopulmonary disease. Electronically signed by: Ketan Ayala M.D. 05/19/2017 11:38 AM Dictated Date/Time: 05/19/2017 11:37 AM
[2017-05-19 12:16] LABS: BASO % 0.4 %; BASO ABS # 0.04 K/uL (0-0.2); EOS % 3.3 %; HEMATOCRIT 38.6 % (37-47); IG# 0.02 K/uL (0.00-0.02); LYMPH % 25.8 %; LYMPH ABS # 2.37 K/uL (1.2-3.4); MEAN CELL VOLUME 93.9 fL (80-100); MEAN CORPUSCULAR HEMOGLOBIN 29.2 pg (25-34); MEAN CORPUSCULAR HGB CONC 31.1 g/dl (32-36); MEAN PLATELET VOLUME 12.5 fL (7.4-10.4); MONO % 9.1 %; MONO ABS # 0.84 K/uL (0.11-0.59); NEUT % 61.2 %; NEUT ABS # 5.63 K/uL (1.4-6.5); PLATELET COUNT 144 K/uL (130-400); RED CELL DISTRIBUTION WIDTH CV 14.7 % (11.5-14.5); RED CELL DISTRIBUTION WIDTH SD 50.2 fL (36.4-46.3)
[2017-05-19 12:24] LABS: CALCIUM 8.9 mg/dl (8.5-10.1); POTASSIUM 5.3 mmol/L (3.5-5.1)
[~2017-06-10] VITALS: Ht 165.1 cm; Wt 117.1 kg
[~2017-06-10 08:22] MED LIST changes: -CEFU500T16 PO; +CIPROFLOXACIN 200MG / D5W IV SCH; +ERGO500037 PO; +OXGN; -OXGN PO; +SODIUM CHLORIDE 0.9% 1000ML 1,000 ML IV SCH; -VTMD PO
[2017-06-10] MEDS ORDERED: LABETALOL HCL IV 5 MG/ML 20ML IV PRN (08:30)
[2017-06-10] MEDS ORDERED: HYDROmorphone INJ 1 MG/ML SYR IV PRN (08:30)
[2017-06-10] MEDS ORDERED: MEPERIDINE HCL 25 MG/ML CARP IV PRN (08:30)
[2017-06-10] MEDS ORDERED: ATROPINE SULFATE 0.1 MG/ML 5ML SYR IV PRN (08:30)
[2017-06-10] MEDS ORDERED: ONDANSETRON INJ 2 MG/ML 2 ML VIAL IV PRN (08:30)
[2017-06-10] MEDS ORDERED: EpHEDrine SULFATE INJ 50 MG/ML AMP IV PRN (08:30)
[2017-06-10] MEDS ORDERED: FENTANYL CITRATE INJ 50 MCG/1 ML 2 ML VIAL IV PRN (08:30)
[2017-06-10 09:14] VITALS: BP 165/69; PULSE 60; TEMP 37.1; O2SAT 93; Ht 165.1 cm; Wt 117.1 kg
[2017-06-10 09:36] LABS: CALCIUM 8.9 mg/dl (8.5-10.1); POTASSIUM 5.3 mmol/L (3.5-5.1)
[2017-06-10] MEDS ORDERED: FENTANYL CITRATE INJ 50 MCG/1 ML 2 ML VIAL ONE (09:45)
[2017-06-10] MEDS ORDERED: MIDAZOLAM HCL 1 MG/ML 2ML VIAL ONE (09:45)
[2017-06-10] MEDS ORDERED: LIDOCAINE HCL 2% 2 ML VIAL (20MG/ML) ONE ×2 (09:45→12:33)
[2017-06-10] MEDS ORDERED: ONDANSETRON INJ 2 MG/ML 2 ML VIAL ONE ×2 (09:45→12:32)
[2017-06-10] MEDS ORDERED: DEXAMETHASONE SOD INJ 4 MG/ML VIAL ONE (09:45)
[2017-06-10] MEDS ORDERED: PROPOFOL IV EMULSION 10 MG/ML 20 ML VIAL IV ONE ×2 (09:45→12:33)
[2017-06-10] MEDS ORDERED: Cysto-Conray II 17.2% 250ML BOTTLE ONE (12:07)
--- NOTE | 2017-06-10 12:39 | [facility] Post Operative Brief Note ---
Immediate Operative Summary Operative Date Jun 10, 2017. Pre-Operative Diagnosis Left hydronephrosis and renal failure Post-Operative Diagnosis Same Procedure(s) Performed Cysto, L RPG, L ureteral stent exchange Surgeon Saul Silva Leno Sewer Surgeon(s) NA Estimated Blood Loss NA Findings Consistent with Post-Op Diagnosis Specimens NA Drains 6 fr 24 cm Cook firm JJ stent Anesthesia Type MAC Spinal Regional Complication(s) none Disposition Accompanied Pt To Recover: no Disposition: Recovery Room / PACU
--- NOTE | 2017-06-10 12:57 | DIAGNOSTIC IMAGING REPORT ---
RETROGRADE INCLUDES KUB HISTORY: LT SIDE CYSTOSCOPY, STENT EXCHANGE FLUOROSCOPY TIME: 40 seconds. FINDINGS: 5 fluoroscopic spot images were submitted for review. Initial images demonstrate a catheter within the proximal left ureter and retrograde opacification of the left renal collecting system. This is followed by placement of a guidewire and left ureteral stent. Only the proximal left ureteral stent was identified and appears to be in good position. IMPRESSION: Fluoroscopy provided for left ureteral stent placement. Electronically signed by: Prudencio Reynoso M.D. 06/10/2017 12:55 PM Dictated Date/Time: 06/10/2017 12:54 PM
[2017-06-10 13:05] VITALS: BP 162/70; PULSE 50; TEMP 36.6; O2SAT 92
--- NOTE | 2017-06-10 13:05 | Discharge Instructions ---
Discharge Instructions Date of Service Jun 10, 2017. Admission Reason for Admission: Hydronephrosis Discharge Discharge Diagnosis / Problem: L hydronephrosis s/p stent exchange Discharge Goals Goal(s): Improve function, Improve disease control, Therapeutic intervention Activity Recommendations Activity Limitations: as noted below Lifting Limitations: gradually increase as tolerated Exercise/Sports Limitations: rest today, gradually increase as tolerated May Resume Sexual Activity: when tolerated Shower/Bathe: no limitations Driving or Machine Use: resume 1 day after discharge . Instructions / Follow-Up Instructions / Follow-Up As scheduled in office June 22 at 09:[address] Alvarado's bloodwork done WedJun 21 to review kidney function before visit. Current Hospital Diet Patient's current hospital diet: Discharge Diet Recommended Diet: Renal Diet (good fluid intake) Procedures Procedures Performed: Cysto, L RPG, L ureteral stent exchange Pending Studies Studies pending at discharge: no Medical Emergencies . Who to Call and When: Medical Emergencies: If at any time you feel your situation is an emergency, please call 911 immediately. . Non-Emergent Contact Non-Emergency issues call your: Urologist Call Non-Emergent contact if: you have a fever, temperature is above 101, your pain is not controlled, your pain is worsening, your pain is unusual for you, your pain is concerning you, you have any medication questions . . "Provider Documentation" section prepared by Lawrence Hughes. .
[2017-06-10] MEDS ORDERED: OXYCODONE/ACETAMINOPHEN 5-325 TAB PO PRN (13:15)
[2017-06-10 13:35] VITALS: BP 147/70; PULSE 51; O2SAT 94
--- NOTE | 2017-06-10 13:46 | [facility] Operative Report ---
Operative Report Operative Date Jun 10, 2017. Pre-Operative Diagnosis Left hydronephrosis and renal failure Post-Operative Diagnosis Same Procedure(s) Performed Cysto, L RPG, L ureteral stent exchange Surgeon Saul Silva Insurance Business Analyst Surgeon(s) NA Estimated Blood Loss NA Findings Good stent position on fluoroscopy Specimens NA Drains 6 fr 24 cm Cook firm JJ stent Anesthesia Type MAC Spinal Regional Complication(s) none Disposition no Recovery Room / PACU Indications Pleasant 82-year-old female who is here today for left ureteral stent exchange 6 months after her last one. Of note, her creatinine is noted to be above her baseline of 2 and is currently closer to 3 today. It is unclear if this is because her stent is somewhat overdue for exchange or due to another cause. We will recheck her creatinine as an outpatient prior to her postoperative visit. Intravenous ciprofloxacin was provided for antibiotic coverage and SCDs used for DVT prophylaxis. Informed consent reviewed with the patient prior to surgery today. Please see H&P for further details. Description of Procedure Patient was properly identified and brought to the operative suite after identification of appropriate consent of the chart. Monitored anesthesia care with sedation was initiated and patient was prepped and draped in the standard fashion for this procedure. Full timeout procedure was followed. 22 Naur[place] rigid cystoscope was passed in the bladder under direct visualization and the tip of the stent was grasped and brought to the meatus. Stent was cannulated using a sensor tip wire but met with resistance. Wire was then passed alongside the stent and was able to be advanced through the stent up to the level of the renal pelvis. Stent was noted to be minimally encrusted externally and was removed without difficulty. An open-ended catheter was advanced over the wire up to the level of the left renal pelvis which was opacified using contrast demonstrating no significant filling defects or dilation. Sensor tip wire was replaced and followed with a 6 N[place] 24 cm double-J firm Cook ureteral stent. Full coil was present within the renal pelvis and a full coil present within the bladder with a hydronephrotic drip. Bladder was drained and cystoscope was removed. Anesthesia was reversed and patient was transferred the recovery room in stable condition. Follow-up care: No new prescriptions are provided. Outpatient postoperative visit is confirmed. Patient to contact that should she suffer from any difficulties in the postoperative period such as fevers, chills, nausea, vomiting or other adverse symptoms. Recheck creatinine prior to outpatient postop visit as planned. I attest to the content of the Intraoperative Record and any orders documented therein. Any exceptions are noted below.
[2017-06-10 14:05] VITALS: BP 155/65; PULSE 50; O2SAT 95
--- NOTE | 2017-06-10 14:10 | Anesthesiology Progress Note ---
Anesthesia Post Op Note Date & Time Jun 10, 2017 at 14:09 Vital Signs Pain Intensity: 0 Vital Signs Past 12 Hours Date Time Temp Pulse Resp B/P (MAP) Pulse Ox O2 Delivery O2 Flow Rate FiO2 06/10/17 13:35 51 18 147/70 94 Room Air 4 06/10/17 13:05 36.6 50 18 162/70 92 Room Air 4 06/10/17 13:00 36.3 54 16 136/59 94 Room Air 06/10/17 12:50 36.3 58 16 127/56 98 Room Air 06/10/17 12:42 36.3 57 16 118/54 98 Oxymask 4 06/10/17 09:14 37.1 60 20 165/69 (101) 93 Room Air Notes Mental Status: alert / awake / arousable, participated in evaluation Pt Amnestic to Procedure: Yes Nausea / Vomiting: adequately controlled Pain: adequately controlled Airway Patency, RR, SpO2: stable & adequate BP & HR: stable & adequate Hydration State: stable & adequate Anesthetic Complications: no major complications apparent
== END 2017-06-10 15:50 | disposition home or self-care (01) ==
LOC: C.ACU 08:22
PROVIDERS: ATTEND Urology
DX: N13.30 Unspecified hydronephrosis (principal); E11.42 Type 2 diabetes mellitus with diabetic polyneuropathy; E11.21 Type 2 diabetes mellitus with diabetic nephropathy; G47.33 Obstructive sleep apnea (adult) (pediatric); I12.9 Hypertensive chronic kidney disease with stage 1 through stage 4 chronic kidney disease, or unspecified chronic kidney disease; N18.3 Chronic kidney disease, stage 3 (moderate); I25.10 Atherosclerotic heart disease of native coronary artery without angina pectoris; E78.5 Hyperlipidemia, unspecified; M10.9 Gout, unspecified; I44.7 Left bundle-branch block, unspecified; I87.2 Venous insufficiency (chronic) (peripheral); E55.9 Vitamin D deficiency, unspecified; Z88.1 Allergy status to other antibiotic agents; Z87.440 Personal history of urinary (tract) infections; Z99.89 Dependence on other enabling machines and devices; Z79.82 Long term (current) use of aspirin; Z99.81 Dependence on supplemental oxygen; Z90.49 Acquired absence of other specified parts of digestive tract; Z84.1 Family history of disorders of kidney and ureter; Z82.49 Family history of ischemic heart disease and other diseases of the circulatory system

== ENCOUNTER → 2017-06-18 | Outpatient (CLI) | payer OTHER, BC ==
[~2017-06-18] MED LIST changes: +CEPH500C PO; -CIPROFLOXACIN 200MG / D5W IV SCH; -SODIUM CHLORIDE 0.9% 1000ML 1,000 ML IV SCH
[2017-06-18 11:35] LABS: HEMOGLOBIN A1C 6.1 % (4.5-5.6)
[2017-06-18 11:37] LABS: HEMATOCRIT 38.8 % (37-47); HEMOGLOBIN 12.3 g/dL (12.0-16.0); MEAN CORPUSCULAR HEMOGLOBIN 29.5 pg (25-34); MEAN CORPUSCULAR HGB CONC 31.7 g/dl (32-36); MEAN PLATELET VOLUME 11.8 fL (7.4-10.4); PLATELET COUNT 179 K/uL (130-400); RED CELL DISTRIBUTION WIDTH CV 15.2 % (11.5-14.5); WHITE BLOOD COUNT 7.28 K/uL (4.8-10.8)
[2017-06-18 15:16] LABS: ALBUMIN 3.4 gm/dl (3.4-5.0); ALT/SGPT 21 U/L (12-78); AST/SGOT 18 U/L (15-37); BLOOD UREA NITROGEN 47 mg/dl (7-18); CALCIUM 9.2 mg/dl (8.5-10.1); CARBON DIOXIDE 23 mmol/L (21-32); CREATININE 2.49 mg/dl (0.60-1.20); GLUCOSE 119 mg/dl (70-99); POTASSIUM 5.2 mmol/L (3.5-5.1); SODIUM 141 mmol/L (136-145)
[2017-06-18 15:18] LABS: ALKALINE PHOSPHATASE 106 U/L (45-117); TOTAL PROTEIN 7.4 gm/dl (6.4-8.2)
== END | disposition home or self-care (01) ==
LOC: C.LABBC 09:08
PROVIDERS: ATTEND Internal Medicine Nephrology
DX: I12.9 Hypertensive chronic kidney disease with stage 1 through stage 4 chronic kidney disease, or unspecified chronic kidney disease (principal); E11.22 Type 2 diabetes mellitus with diabetic chronic kidney disease; N18.3 Chronic kidney disease, stage 3 (moderate); E55.9 Vitamin D deficiency, unspecified; N28.1 Cyst of kidney, acquired

== ENCOUNTER 2017-06-19 12:37 | Emergency (ER) | payer OTHER, BC ==
[~2017-06-19] VITALS: Ht 165.1 cm; Wt 117.0 kg
[~2017-06-19 12:37] MED LIST changes: -CEPH500C PO
[2017-06-19 12:49] VITALS: TEMP 37.1; Ht 165.1 cm; Wt 117.0 kg
--- NOTE | 2017-06-19 12:58 | EMERGENCY ROOM VISIT NOTE ---
History Report prepared by Doug: Jensen Sparks Under the Supervision of: Dr. Bhavin Melgar M.D. First contact with patient: 12:41 Chief Complaint: INFECTION Stated Complaint: CELLULITIS IN LEGS History of Present Illness The patient is an 82 year old female who presents to the Emergency Room with complaints of a persistent left lower leg infection that started a week ago. Per the patient's son who is a general surgeon here, the patient lives alone, and sits on a chair with her legs down, and has chronic edema. The patient most likely has a component of congestive heart failure. The patient has a left renal tumor, and Dr. Lawrence Hughes changed her stent last week. She was under general anesthesia, and has not been eating much since then. Her creatinine last week was 3, and it is usually around 2. Dr. Hughes was noted to be concerned about that. Any fevers were denied on behalf of the patient. The patient states that her left leg has been red for a week, and she feels like she has cellulitis. She notes that the left leg is more swollen than usual. The patient states that her left leg sood. The patient does note that she has some redness to the right leg as well, but it is not as bad as the left leg. She denies any chills, headaches, chest pain, shortness of breath, abdominal pain, back pain, or urinary symptoms. She says that she takes Plavix and Aspirin. She adds that she has been eating and drinking fine the past few days. She notes no history of blood clots. Source of History: patient, family Onset: Last week Position: leg (bilateral) Symptom Intensity: red and burning Quality: other (infection, probable cellulitis) Timing: other (persistent) Associated Symptoms: No fevers, No chills, No headache, No chest pain, No SOB, No abdominal pain, No back pain, No urinary symptoms Note: No other associated symptoms noted. Review of Systems See HPI for pertinent positives & negatives. A total of 10 systems reviewed and were otherwise negative. Past Medical & Surgical Medical Problems: (1) Acute kidney injury (2) Atrial fibrillation (3) Atrial fibrillation (4) Calculus of kidney (5) Calculus Of Kidney (6) Chronic Kidney Disease, Stage Iii (Moderate) (7) Coronary artery disease (8) Diab Susie Wo Compl, Type Ii Or Unspec Type, Not Uncntrld (9) Diabetes (10) Diverticulitis of colon (11) Diverticulosis Colon (W/O Ment Of Hemorrhage) (12) Hyperlipidemia (13) Hyperlipidemia Nec/Nos (14) Hypertension (15) Hypertension Nos (16) LBBB (left bundle branch block) (17) Left flank pain (18) Obesity (19) GURPREET (obstructive sleep apnea) (20) Pyelonephritis (21) Renal mass, left (22) UTI (urinary tract infection) Surgical Problems: (1) H/O cardiac catheterization Old medical records were reviewed. Nurse's notes were reviewed and I agree with. Family History FH: cancer FH: diabetes mellitus FH: heart disease FH: hypertension FH: kidney disease Kidney stone Social History Smoking Status: Never Smoker Alcohol Use: none Drug Use: none Marital Status: Housing Status: lives with family Occupation Status: retired Current/Historical Medications Scheduled Aspirin (Aspirin Ec), 81 MG PO QAM Atorvastatin (Lipitor), 40 MG PO HS Cephalexin Monohydrate (Keflex), 500 MG PO BID Clopidogrel (Plavix), 75 MG PO QAM Ergocalciferol (Vitamin D 24736 Unit), 50,000 UNIT PO MONTHLY Furosemide (Lasix), 20 MG PO QAM Home O2 Therapy (Oxygen), 2 LITERS NA HS Hydralazine Hcl (Apresoline), 50 MG PO TID Lisinopril (Zestril), 20 MG PO QAM Magnesium Oxide (Mg Supplement (Magnesium Oxide), 1 TAB PO DIRECTED Metoprolol Tartrate (Lopressor) (Lopressor), 100 MG PO BID Scheduled PRN Acetaminophen (Tylenol), 1,000 MG PO TID PRN for RN Allergies Coded Allergies: Streptomycin (Verified Allergy, Unknown, UNSURE REACTION, 06/19/17) Sulfamethoxazole w/Trimethoprim (Verified Allergy, Unknown, felt like walking on eggs, 06/19/17) Physical Exam Vital Signs Date Time Temp Pulse Resp B/P (MAP) Pulse Ox O2 Delivery O2 Flow Rate FiO2 06/19/17 12:49 37.1 57 20 164/49 94 Room Air Physical Exam General: Non-ill appearing older female in no acute distress. HEENT: Normal cephalic atraumatic. Pupils are equal round and reactive to light. Extraocular movements are intact. Oropharynx is pink with moist mucous membranes. No swelling of the mouth lips or tongue. Neck: Supple with a midline trachea. No meningeal signs or stiffness, no JVD or bruits. No Stridor. Chest: Clear to auscultation bilaterally. No wheezes or rhonchi. No increased work of breathing. Heart: regular rate and rhythm. Abdomen: Soft nontender, nondistended without rebound guarding or rigidity. Extremities: Lower extremities have chronic edema. Mild pink discoloration of shins. Spine/Back. Non tender to palpation. No CVA tenderness Skin: Good turgor without rashes. Neurologic exam: Cranial nerves two through 12 are intact. Motor and sensation are intact and symmetrical throughout. Medical Decision & Procedures ER Provider Diagnostic Interpretation: Radiology results as stated below per my review and radiologist interpretation: SINGLE VIEW CHEST CLINICAL HISTORY: Atypical chest pain. FINDINGS: An AP, portable, upright chest radiograph is compared to study dated 05/19/2017. The examination is degraded by portable technique and patient rotation. The heart is enlarged and there is atherosclerotic calcification of the thoracic aorta. The pulmonary vasculature is noncongested. Chronic interstitial thickening is similar to previous. No airspace consolidation or large pleural effusion is identified. No pneumothorax is seen. The skeletal structures are osteopenic. The bony thorax is grossly intact. Arthritic change is seen in the shoulders and thoracic spine. IMPRESSION: Cardiomegaly with no acute cardiopulmonary abnormality. Electronically signed by: Ervin Cat M.D. 06/19/2017 1:26 PM Dictated Date/Time: 06/19/2017 1:25 PM ULTRASOUND BILATERAL LOWER EXTREMITY VENOUS CLINICAL HISTORY: Swelling. COMPARISON STUDY: Bilateral lower extremity ultrasound dated 11/18/2014. TECHNIQUE: Real-time, grayscale, and color Doppler sonography of the deep veins of the right and left lower extremity was performed from the inguinal crease to the calf. Compression and augmentation were utilized. FINDINGS: There is no sonographic evidence of deep venous thrombosis identified in the right or left lower extremity. The common femoral, superficial femoral, and popliteal veins are patent and normally compressible bilaterally. The greater saphenous vein and the profunda femoris vein at the junction with the common femoral vein are clear in both legs. The visualized calf veins are patent in the right leg. The left calf vessels were not well visualized. Soft tissue edema is noted in both legs. IMPRESSION: There is no sonographic evidence of deep venous thrombosis identified in the right or left lower extremity. Electronically signed by: Ervin Cat M.D. 06/19/2017 2:43 PM Dictated Date/Time: 06/19/2017 2:43 PM Laboratory Results 06/19/17 13:25 Red Blood Count 4.14, Mean Corpuscular Volume 93.7, Mean Corpuscular Hemoglobin 28.5, Mean Corpuscular Hemoglobin Concent 30.4, Mean Platelet Volume 12.1, Neutrophils (%) (Auto) 57.2, Lymphocytes (%) (Auto) 30.1, Monocytes (%) (Auto) 7.7, Eosinophils (%) (Auto) 3.9, Basophils (%) (Auto) 0.6, Neutrophils # (Auto) 3.81, Lymphocytes # (Auto) 2.00, Monocytes # (Auto) 0.51, Eosinophils # (Auto) 0.26, Basophils # (Auto) 0.04 06/19/17 13:25 Test 06/19/17 13:25 06/19/17 13:32 06/19/17 13:45 White Blood Count 6.65 K/uL (4.8-10.8) Red Blood Count 4.14 M/uL (4.2-5.4) Hemoglobin 11.8 g/dL (12.0-16.0) Hematocrit 38.8 % (37-47) Mean Corpuscular Volume 93.7 fL (80-100) Mean Corpuscular Hemoglobin 28.5 pg (25-34) Mean Corpuscular Hemoglobin Concent 30.4 g/dl (32-36) Platelet Count 167 K/uL (130-400) Mean Platelet Volume 12.1 fL (7.4-10.4) Neutrophils (%) (Auto) 57.2 % Lymphocytes (%) (Auto) 30.1 % Monocytes (%) (Auto) 7.7 % Eosinophils (%) (Auto) 3.9 % Basophils (%) (Auto) 0.6 % Neutrophils # (Auto) 3.81 K/uL (1.4-6.5) Lymphocytes # (Auto) 2.00 K/uL (1.2-3.4) Monocytes # (Auto) 0.51 K/uL (0.11-0.59) Eosinophils # (Auto) 0.26 K/uL (0-0.5) Basophils # (Auto) 0.04 K/uL (0-0.2) RDW Standard Deviation 51.9 fL (36.4-46.3) RDW Coefficient of Variation 15.1 % (11.5-14.5) Immature Granulocyte % (Auto) 0.5 % Immature Granulocyte # (Auto) 0.03 K/uL (0.00-0.02) Prothrombin Time 11.1 SECONDS (9.0-12.0) Prothromb Time International Ratio 1.1 (0.9-1.1) Activated Partial Thromboplast Time 21.0 SECONDS (21.0-31.0) Partial Thromboplastin Ratio 0.8 Anion Gap 4.0 mmol/L (3-11) Est Creatinine Clear Calc Drug Dose 22.5 ml/min Estimated GFR () 20.4 Estimated GFR (Non- 17.6 BUN/Creatinine Ratio 20.0 (10-20) Calcium Level 8.4 mg/dl (8.5-10.1) Total Bilirubin 0.4 mg/dl (0.2-1) Direct Bilirubin 0.1 mg/dl (0-0.2) Aspartate Amino Transf (AST/SGOT) 17 U/L (15-37) Alanine Aminotransferase (ALT/SGPT) 20 U/L (12-78) Alkaline Phosphatase 104 U/L (45-117) Total Creatine Kinase 51 U/L (26-192) Creatine Kinase MB 0.6 ng/ml (0.5-3.6) Creatine Kinase MB Ratio 1.2 (0-3.0) Pro-B-Type Natriuretic Peptide 5400 pg/ml (0-1800) Total Protein 6.7 gm/dl (6.4-8.2) Albumin 3.1 gm/dl (3.4-5.0) Lipase 306 U/L (73-393) Bedside Troponin I < 0.030 ng/ml (0-0.045) Urine Color YELLOW Urine Appearance CLEAR (CLEAR) Urine pH 5.0 (4.5-7.5) Urine Specific Melvin 1.012 (1.000-1.030) Urine Protein 2+ (NEG) Urine Glucose (UA) NEG (NEG) Urine Ketones NEG (NEG) Urine Occult Blood NEG (NEG) Urine Nitrite NEG (NEG) Urine Bilirubin NEG (NEG) Urine Urobilinogen NEG (NEG) Urine Leukocyte Esterase NEG (NEG) Urine WBC (Auto) 1-5 /hpf (0-5) Urine RBC (Auto) 10-30 /hpf (0-4) Urine Hyaline Casts (Auto) 0 /lpf (0-5) Urine Epithelial Cells (Auto) >30 /lpf (0-5) Urine Bacteria (Auto) NEG (NEG) Laboratory studies as stated above per my review. ECG Per My Interpretation Indication: bradycardia Rate (beats per minute): 59 Rhythm: sinus bradycardia Findings: LBBB, PVC, no acute ischemic change Change: no significant change (from May 19 2017) ED Course 1244: Past medical records reviewed. The patient was evaluated in room A9B, and a complete history and physical examination were performed. 1357: I reevaluated the patient and she is comfortable and going over to ultrasound. 1455: Upon reevaluation, the patient is resting comfortably. I discussed the results and treatment plan with her. She verbalized agreement of the treatment plan. The patient was discharged home. 1458: I talked to the patient's son, and he agrees with the plan. 1500: Keflex 500MG Home Pack 1 homepack PO. Medical Decision Differentials include, but are not limited to; infection, cellulitis, DVT, CHF, electrolyte or metabolic abnormality. This patient comes in as described above. She is placed in room A9. She's had some swelling in her legs and some mild redness. She recently had surgery and tends to have difficulty afterwards which after general anesthesia with nausea she has been laying around although is feeling better and noticed her legs were swollen. She's had no chest pain or shortness breath .she does have chronic edema of her legs. She has a stent in the left kidney denies urinary symptoms. IV access established, cultures were obtained, EKG was obtained, as well as chest x-ray and bilateral lower extremity ultrasounds. Her EKG does not suggest acute coronary syndrome or arrhythmia. Chest x-ray shows cardiomegaly without overt CHF. She was reassessed frequently. Ultrasound showed no evidence of DVT. She has renal insufficiency but it trending towards improvement. There is no elevation of cardiac enzymes. BMP is elevated. It could be congestive heart failure component but her lungs are clear. I think is most likely more of a positional component with her chronic edema. She can use compression hose and try to get up out of bed more they're helping to try to arrange some home help with her although she is somewhat resistant. We'll cover the possibility of a cellulitis of his bilateral. Left greater than right. She is given Keflex 500 mg 3 times a day with reduced dosing because of her renal insufficiency. Discussed this with the patient's son and he agree with the plan. She will be discharged to home. Medication Reconcilliation Current Medication List: was personally reviewed by me Blood Pressure Screening Patient's blood pressure: Elevated blood pressure Blood pressure disposition: Elevated BP felt to be situational Impression Primary Impression: Edema, lower extremity Additional Impression: Cellulitis Scribe Attestation The scribe's documentation has been prepared under my direction and personally reviewed by me in its entirety. I confirm that the note above accurately reflects all work, treatment, procedures, and medical decision making performed by me. Departure Information Dispostion Home / Self-Care Prescriptions Cephalexin Monohydrate (Keflex) 500 Mg Cap 500 MG PO BID for 7 Days, #14 CAP Prov: Bhavin Melgar M.D. 06/19/17 Referrals Neel Mays M.D. (PCP) Forms HOME CARE DOCUMENTATION FORM, IMPORTANT VISIT INFORMATION, WORK / SCHOOL INSTRUCTIONS Patient Instructions My [facility] Additional Instructions Rest. Use your compression hose. Keep legs elevated Use Keflex 500 mg twice a day for 7 days REturn if: worsening of symptoms, increasing pain or swelling, shortness of breath, fever chills, any new problems or concerns Follow-up with doctor on Wednesday for recheck Problem Qualifiers
--- NOTE | 2017-06-19 13:28 | DIAGNOSTIC IMAGING REPORT ---
SINGLE VIEW CHEST CLINICAL HISTORY: Atypical chest pain. FINDINGS: An AP, portable, upright chest radiograph is compared to study dated 05/19/2017. The examination is degraded by portable technique and patient rotation. The heart is enlarged and there is atherosclerotic calcification of the thoracic aorta. The pulmonary vasculature is noncongested. Chronic interstitial thickening is similar to previous. No airspace consolidation or large pleural effusion is identified. No pneumothorax is seen. The skeletal structures are osteopenic. The bony thorax is grossly intact. Arthritic change is seen in the shoulders and thoracic spine. IMPRESSION: Cardiomegaly with no acute cardiopulmonary abnormality. Electronically signed by: Ervin Cat M.D. 06/19/2017 1:26 PM Dictated Date/Time: 06/19/2017 1:25 PM
[2017-06-19 14:05] LABS: BASO % 0.6 %; BASO ABS # 0.04 K/uL (0-0.2); EOS % 3.9 %; EOS ABS # 0.26 K/uL (0-0.5); HEMATOCRIT 38.8 % (37-47); HEMOGLOBIN 11.8 g/dL (12.0-16.0); IG# 0.03 K/uL (0.00-0.02); LYMPH % 30.1 %; MEAN CELL VOLUME 93.7 fL (80-100); MEAN CORPUSCULAR HEMOGLOBIN 28.5 pg (25-34); MEAN CORPUSCULAR HGB CONC 30.4 g/dl (32-36); MEAN PLATELET VOLUME 12.1 fL (7.4-10.4); MONO % 7.7 %; MONO ABS # 0.51 K/uL (0.11-0.59); NEUT % 57.2 %; NEUT ABS # 3.81 K/uL (1.4-6.5); PLATELET COUNT 167 K/uL (130-400); RED CELL DISTRIBUTION WIDTH CV 15.1 % (11.5-14.5); RED CELL DISTRIBUTION WIDTH SD 51.9 fL (36.4-46.3); WHITE BLOOD COUNT 6.65 K/uL (4.8-10.8)
[2017-06-19 14:12] LABS: INR 1.1 (0.9-1.1)
[2017-06-19 14:20] LABS: ALBUMIN 3.1 gm/dl (3.4-5.0); CALCIUM 8.4 mg/dl (8.5-10.1); CREATININE 2.47 mg/dl (0.60-1.20); POTASSIUM 4.8 mmol/L (3.5-5.1)
[2017-06-19 14:25] LABS: CKMB 0.6 ng/ml (0.5-3.6); TOTAL PROTEIN 6.7 gm/dl (6.4-8.2)
--- NOTE | 2017-06-19 14:45 | DIAGNOSTIC IMAGING REPORT ---
ULTRASOUND BILATERAL LOWER EXTREMITY VENOUS CLINICAL HISTORY: Swelling. COMPARISON STUDY: Bilateral lower extremity ultrasound dated 11/18/2014. TECHNIQUE: Real-time, grayscale, and color Doppler sonography of the deep veins of the right and left lower extremity was performed from the inguinal crease to the calf. Compression and augmentation were utilized. FINDINGS: There is no sonographic evidence of deep venous thrombosis identified in the right or left lower extremity. The common femoral, superficial femoral, and popliteal veins are patent and normally compressible bilaterally. The greater saphenous vein and the profunda femoris vein at the junction with the common femoral vein are clear in both legs. The visualized calf veins are patent in the right leg. The left calf vessels were not well visualized. Soft tissue edema is noted in both legs. IMPRESSION: There is no sonographic evidence of deep venous thrombosis identified in the right or left lower extremity. Electronically signed by: Ervin Cat M.D. 06/19/2017 2:43 PM Dictated Date/Time: 06/19/2017 2:43 PM
[2017-06-19] MEDS ORDERED: CEPHALEXIN 500MG HOME PACK 1 EA BTL PO ONE (15:00)
[2017-06-19] MEDS ORDERED: CEPH500C PO (15:03)
[2017-06-19 15:31] VITALS: BP 195/64; PULSE 58; O2SAT 94
== END 2017-06-19 15:51 | disposition home or self-care (01) ==
LOC: C.EDB 12:38 → C.EDA 15:51
DX: R60.9 Edema, unspecified (principal); L03.115 Cellulitis of right lower limb; L03.116 Cellulitis of left lower limb; R00.1 Bradycardia, unspecified; I44.7 Left bundle-branch block, unspecified; I49.3 Ventricular premature depolarization; I48.91 Unspecified atrial fibrillation; N18.3 Chronic kidney disease, stage 3 (moderate); I25.10 Atherosclerotic heart disease of native coronary artery without angina pectoris; E11.9 Type 2 diabetes mellitus without complications; E78.5 Hyperlipidemia, unspecified; I12.9 Hypertensive chronic kidney disease with stage 1 through stage 4 chronic kidney disease, or unspecified chronic kidney disease; G47.33 Obstructive sleep apnea (adult) (pediatric); N28.89 Other specified disorders of kidney and ureter; Z79.02 Long term (current) use of antithrombotics/antiplatelets; Z79.82 Long term (current) use of aspirin; Z79.899 Other long term (current) drug therapy; Z99.81 Dependence on supplemental oxygen; Z88.2 Allergy status to sulfonamides; Z88.8 Allergy status to other drugs, medicaments and biological substances; Z82.49 Family history of ischemic heart disease and other diseases of the circulatory system; Z83.3 Family history of diabetes mellitus; Z84.1 Family history of disorders of kidney and ureter

== ENCOUNTER → 2017-08-09 | Outpatient (CLI) | payer OTHER, BC ==
[2017-08-09 10:37] LABS: HEMATOCRIT 41.3 % (37-47); HEMOGLOBIN 12.9 g/dL (12.0-16.0); MEAN CELL VOLUME 92.2 fL (80-100); MEAN CORPUSCULAR HEMOGLOBIN 28.8 pg (25-34); MEAN CORPUSCULAR HGB CONC 31.2 g/dl (32-36); PLATELET COUNT 171 K/uL (130-400); RED CELL DISTRIBUTION WIDTH CV 14.9 % (11.5-14.5); RED CELL DISTRIBUTION WIDTH SD 50.7 fL (36.4-46.3); WHITE BLOOD COUNT 7.76 K/uL (4.8-10.8)
[2017-08-09 10:51] LABS: ALBUMIN 3.1 gm/dl (3.4-5.0); ALT/SGPT 15 U/L (12-78); AST/SGOT 16 U/L (15-37); BLOOD UREA NITROGEN 51 mg/dl (7-18); CARBON DIOXIDE 29 mmol/L (21-32); CHOLESTEROL 148 mg/dl (0-200); CREATININE 1.86 mg/dl (0.60-1.20); GLUCOSE 112 mg/dl (70-99); LDL CHOLESTEROL CALCULATED 59 mg/dl; PHOSPHORUS 3.2 mg/dl (2.5-4.9); POTASSIUM 4.9 mmol/L (3.5-5.1); SODIUM 144 mmol/L (136-145)
== END | disposition home or self-care (01) ==
LOC: C.LABBC 08:22
PROVIDERS: ATTEND Internal Medicine Nephrology
DX: I12.9 Hypertensive chronic kidney disease with stage 1 through stage 4 chronic kidney disease, or unspecified chronic kidney disease (principal); N18.3 Chronic kidney disease, stage 3 (moderate); E55.9 Vitamin D deficiency, unspecified; N13.30 Unspecified hydronephrosis; I25.10 Atherosclerotic heart disease of native coronary artery without angina pectoris

== ENCOUNTER → 2017-10-18 | Outpatient (CLI) | payer OTHER, BC ==
[2017-10-18 17:00] LABS: BASO % 0.7 %; BASO ABS # 0.05 K/uL (0-0.2); EOS % 5.4 %; EOS ABS # 0.41 K/uL (0-0.5); HEMOGLOBIN 13.2 g/dL (12.0-16.0); IG# 0.01 K/uL (0.00-0.02); LYMPH % 38.1 %; MEAN CELL VOLUME 91.7 fL (80-100); MEAN CORPUSCULAR HEMOGLOBIN 28.8 pg (25-34); MEAN CORPUSCULAR HGB CONC 31.4 g/dl (32-36); MEAN PLATELET VOLUME 11.8 fL (7.4-10.4); MONO % 8.7 %; MONO ABS # 0.66 K/uL (0.11-0.59); NEUT ABS # 3.59 K/uL (1.4-6.5); PLATELET COUNT 176 K/uL (130-400); RED CELL DISTRIBUTION WIDTH CV 15.4 % (11.5-14.5); RED CELL DISTRIBUTION WIDTH SD 51.4 fL (36.4-46.3); WHITE BLOOD COUNT 7.62 K/uL (4.8-10.8)
[2017-10-18 17:09] LABS: BLOOD UREA NITROGEN 56 mg/dl (7-18); CALCIUM 9.1 mg/dl (8.5-10.1); CARBON DIOXIDE 28 mmol/L (21-32); CREATININE 1.93 mg/dl (0.60-1.20); GLUCOSE 105 mg/dl (70-99); POTASSIUM 5.7 mmol/L (3.5-5.1); SODIUM 142 mmol/L (136-145)
== END | disposition home or self-care (01) ==
LOC: C.LABBC 15:00
PROVIDERS: ATTEND Urology
DX: N13.30 Unspecified hydronephrosis (principal)

== ENCOUNTER → 2017-11-02 | Outpatient (CLI) | payer OTHER, BC ==
[~2017-11-02] MED LIST changes: +CIPR1TAB11 PO
== END | disposition home or self-care (01) ==
LOC: C.LABBC 08:07
PROVIDERS: ATTEND Family Medicine Adult Medicine
DX: E87.5 Hyperkalemia (principal)

== ENCOUNTER 2017-11-04 07:07 | Day surgery (SDC) | payer OTHER, BC ==
[2017-10-12 13:22] VITALS: BMI 38.0
[~2017-11-04] VITALS: Ht 167.6 cm; Wt 106.8 kg
[~2017-11-04 07:07] MED LIST changes: -CIPR1TAB11 PO; +CIPROFLOXACIN / D5W 400 MG IV SCH; +SODIUM CHLORIDE 0.9% 1000ML 1,000 ML IV SCH
[2017-11-04 07:56] VITALS: BP 225/76; PULSE 54; TEMP 36.9; O2SAT 96; Ht 167.6 cm; Wt 106.8 kg
[2017-11-04] MEDS ORDERED: LABETALOL HCL IV 5 MG/ML 20ML IV PRN (08:30)
[2017-11-04] MEDS ORDERED: ONDANSETRON INJ 2 MG/ML 2 ML VIAL IV PRN (08:30)
[2017-11-04] MEDS ORDERED: ATROPINE SULFATE 0.1 MG/ML 5ML SYR IV PRN (08:30)
[2017-11-04] MEDS ORDERED: HYDROmorphone INJ 0.5 MG/0.5 ML SYR IV PRN (08:30)
[2017-11-04] MEDS ORDERED: EpHEDrine SULFATE INJ 50 MG/ML AMP IV PRN (08:30)
[2017-11-04] MEDS ORDERED: FENTANYL CITRATE INJ 50 MCG/1 ML 2 ML VIAL IV PRN (08:30)
[2017-11-04] MEDS ORDERED: MEPERIDINE HCL 25 MG/ML CARP IV PRN (08:30)
[2017-11-04] MEDS ORDERED: PROPOFOL IV EMULSION 10 MG/ML 20 ML VIAL ONE (09:18)
[2017-11-04] MEDS ORDERED: LIDOCAINE HCL 2% 2 ML VIAL (20MG/ML) ONE (09:18)
[2017-11-04] MEDS ORDERED: FENTANYL CITRATE INJ 50 MCG/1 ML 2 ML VIAL ONE (09:19)
[2017-11-04] MEDS ORDERED: MIDAZOLAM HCL 1 MG/ML 2ML VIAL ONE (09:19)
[2017-11-04] MEDS ORDERED: Cysto-Conray II 17.2% 250ML BOTTLE ONE (09:23)
[2017-11-04] MEDS ORDERED: ONDANSETRON INJ 2 MG/ML 2 ML VIAL ONE (10:23)
[2017-11-04] MEDS ORDERED: CIPR1TAB11 PO (10:25)
--- NOTE | 2017-11-04 10:25 | [facility] Operative Report ---
Operative Report Operative Date Nov 04, 2017. Pre-Operative Diagnosis Left Hydronephrosis with history of renal failure Post-Operative Diagnosis Left Hydronephrosis with history of renal failure Procedure(s) Performed Cystoscopy, Left Retrograde Pyelogram; Left Ureteral Stent Exchange Surgeon Dr. Amrit Hughes Spent Grain Dryer Surgeon(s) none Estimated Blood Loss 0 Findings Good stent position on fluoroscopic examination. Specimens none per surgeon Drains Left-sided 6 [place] 24 cm firm double-J ureteral stent Anesthesia Type MAC Complication(s) none Disposition no Recovery Room / PACU Indications Pleasant 82-year-old female who is here for scheduled ureteral stent exchange, chronically indwelling due to history of left hydronephrosis associated with renal failure. Intravenous ciprofloxacin is provided for antibiotic coverage, preoperative culture demonstrating contamination. Please see H&P for further details. Consent reviewed preoperatively with the patient today. Description of Procedure Patient was properly identified and brought into the operative suite after identification for proper consent of the chart. Monitored anesthesia care with sedation was initiated and patient was prepped and draped in standard fashion for this procedure. Full timeout procedure was followed. 22 [place] rigid cystoscope was passed into the bladder under direct visualization and bladder was surveyed demonstrating no intravesical inflammation, abnormal mucosa or tumors. And unencrusted left-sided ureteral stent was visualized with a full loop within the bladder. This was grasped using a stent grasper and brought down to the level of the meatus. It was cannulated using a tip wire which was advanced up to the level of the left renal pelvis under fluoroscopic guidance. Stent was removed and a 5 [place] open-ended was placed. Left renal pelvis was opacified to allow for better stent positioning at the end of the case. Mild hydronephrosis with some proximal ureteral tortuosity was appreciated without filling defects or calcifications. Sensor tip wire was readvanced at the level of the left renal pelvis followed by a 6 [place] 24 cm double-J ureteral stent with a full coil being present within the pelvis and a full coil within the bladder. Hydronephrotic drip was appreciated. Bladder was drained and cystoscope was removed. Anesthesia was reversed the patient was transferred to the recovery room in stable condition. Follow-up instructions: Patient will be discharged home after appropriate recovery. She is instructed to contact our service should she note any fevers, chills, nausea, vomiting or other difficulties in the postoperative period. Prescription for ciprofloxacin for postoperative coverage is provided. Postoperative appointment is confirmed. I attest to the content of the Intraoperative Record and any orders documented therein. Any exceptions are noted below.
--- NOTE | 2017-11-04 10:26 | Discharge Instructions ---
Discharge Instructions Date of Service Nov 04, 2017. Admission Reason for Admission: Hydronephrosis Of Left Kidney Discharge Discharge Diagnosis / Problem: L hydro with renal failure s/p stent exchange Discharge Goals Goal(s): Improve function, Improve disease control Activity Recommendations Activity Limitations: as noted below Lifting Limitations: no more than 25 pounds, gradually increase as tolerated Exercise/Sports Limitations: rest today, gradually increase as tolerated May Resume Sexual Activity: when tolerated Shower/Bathe: no limitations Driving or Machine Use: resume 1 day after discharge . Instructions / Follow-Up Instructions / Follow-Up As scheduled in office for postoperative visit. Current Hospital Diet Patient's current hospital diet: Discharge Diet Recommended Diet: Regular Diet (good fluid intake) Procedures Procedures Performed: Cystoscopy, Left Retrograde Pyelogram; Left Ureteral Stent Exchange Pending Studies Studies pending at discharge: no Laboratory Results Lipid Panel Test 08/09/17 08:29 Range/Units Triglycerides Level 221 H 0-150 mg/dl Cholesterol Level 148 0-200 mg/dl HDL Cholesterol 45 mg/dl Cholesterol/HDL Ratio 3.3 LDL Cholesterol, Calculated 59 mg/dl Medical Emergencies . Who to Call and When: Medical Emergencies: If at any time you feel your situation is an emergency, please call 911 immediately. . Non-Emergent Contact Non-Emergency issues call your: Urologist Call Non-Emergent contact if: you have a fever, temperature is above 101, your pain is not controlled, your pain is worsening, your pain is unusual for you, your pain is concerning you, you have any medication questions . . "Provider Documentation" section prepared by Lawrence Hughes. .
[2017-11-04] MEDS ORDERED: OXYCODONE/ACETAMINOPHEN 5-325 TAB PO PRN (10:30)
[2017-11-04] MEDS ORDERED: PHENAZOPYRIDINE HCL 100 MG TAB PO PRN (10:30)
--- NOTE | 2017-11-04 10:46 | DIAGNOSTIC IMAGING REPORT ---
RETROGRADE INCLUDES KUB HISTORY: LEFT SIDE RETROGRADE AND STENT EXCHANGE FLUOROSCOPY TIME: 33 seconds. FINDINGS: 3 fluoroscopic spot images were submitted for review. Initial images demonstrate a guidewire within the left ureter placed in a retrograde fashion. This is followed by placement of a left ureteral stent. The proximal stent is visualized and appears in good position. IMPRESSION: Fluoroscopy provided for left ureteral stent placement. Electronically signed by: Prudencio Reynoso M.D. 11/04/2017 10:45 AM Dictated Date/Time: 11/04/2017 10:37 AM
[2017-11-04 10:55] VITALS: BP 176/73; PULSE 60; TEMP 36.9; O2SAT 92
[2017-11-04 11:25] VITALS: BP 179/91; PULSE 48; TEMP 36.7; O2SAT 93
--- NOTE | 2017-11-04 13:33 | Anesthesiology Progress Note ---
Anesthesia Post Op Note Date & Time Nov 04, 2017 at 13:33 Vital Signs Pain Intensity: 0 Vital Signs Past 12 Hours Date Time Temp Pulse Resp B/P (MAP) Pulse Ox O2 Delivery O2 Flow Rate FiO2 11/04/17 11:25 36.7 48 18 179/91 93 Room Air 11/04/17 10:55 36.9 60 18 176/73 92 Room Air 11/04/17 10:50 36.6 50 12 163/59 94 Room Air 11/04/17 10:40 49 13 175/58 94 Room Air 11/04/17 10:30 36.4 54 17 164/79 98 Oxymask 6 11/04/17 07:56 36.9 54 18 225/76 (125) 96 Room Air Notes Mental Status: alert / awake / arousable, participated in evaluation Pt Amnestic to Procedure: Yes Nausea / Vomiting: adequately controlled Pain: adequately controlled Airway Patency, RR, SpO2: stable & adequate BP & HR: stable & adequate Hydration State: stable & adequate Anesthetic Complications: no major complications apparent
== END 2017-11-04 11:45 | disposition home or self-care (01) ==
LOC: C.ACU 07:07
PROVIDERS: ATTEND Urology
DX: N13.30 Unspecified hydronephrosis (principal); I12.9 Hypertensive chronic kidney disease with stage 1 through stage 4 chronic kidney disease, or unspecified chronic kidney disease; N18.3 Chronic kidney disease, stage 3 (moderate); E78.5 Hyperlipidemia, unspecified; I25.10 Atherosclerotic heart disease of native coronary artery without angina pectoris; G47.33 Obstructive sleep apnea (adult) (pediatric); E11.21 Type 2 diabetes mellitus with diabetic nephropathy; E11.42 Type 2 diabetes mellitus with diabetic polyneuropathy; E55.9 Vitamin D deficiency, unspecified; E66.9 Obesity, unspecified; Z68.38 Body mass index [BMI] 38.0-38.9, adult; Z88.1 Allergy status to other antibiotic agents; Z90.49 Acquired absence of other specified parts of digestive tract; Z79.82 Long term (current) use of aspirin

== ENCOUNTER 2018-06-07 06:24 | Inpatient (IN) ==
[2018-06-07] MEDS ORDERED: methylPREDNISolone 125 MG/2 ML VIAL IV STA (06:50)
[2018-06-07] MEDS ORDERED: ALBUT/IPRATROP 3MG/0.5MG NEB 3 ML VIAL INH STA (06:50)
[2018-06-07] MEDS ORDERED: NITROGLYCERIN 2% OINTMENT 30GM TUBE EXT STA (06:50)
[2018-06-07] MEDS ORDERED: NITROGLYCERIN SL 0.4 MG/TAB TAB SL STA (06:50)
[2018-06-07 07:26] LABS: Hematocrit (blood only) 36.9 % (37-47); Hemoglobin 11.3 g/dL (12.0-16.0); Mean Corpuscular Hgb Conc 30.6 g/dL (32-36); Mean Corpuscular Volume 93.9 fL (80-100); Mean Platelet Volume 11.7 fL (7.4-10.4); Platelet Count 134 K/uL (130-400); Red Blood Count 3.93 M/uL (4.2-5.4); White Blood Count 10.05 K/uL (4.8-10.8)
--- NOTE | 2018-06-07 07:36 | XRay Report ---
XR chest 1V portable CLINICAL HISTORY: Dyspnea dyspnea COMPARISON STUDY: 12/24/2017 FINDINGS: Mild cardia megaly. Prominent pulmonary vasculature slightly increased compared to the prio r study. Diaphragms are smooth. Very slight blunting right lateral gastric angle. IMPRESSION: Stable components of congestive failure. The above report was generated using voice recognition software. It may contain grammatical, syntax or spelling errors. Electronically signed by: Salvatore Puentes M.D. 06/07/2018 7:35 AM
[2018-06-07 07:40] LABS: Base Excess VBG 1.1 mEq/L; Oxygen Saturation VBG 73.3 %; pH VBG 7.26 (7.36-7.41)
[2018-06-07 07:41] LABS: Alanine Aminotransferase 15 U/L (12-78); Aspartate Aminotransferase 17 U/L (15-37); BUN Creatinine Ratio 19.5 (10-20); Blood Urea Nitrogen 46 mg/dl (7-18); Calcium 8.2 mg/dl (8.5-10.1); Carbon Dioxide 29 mmol/L (21-32); Chloride 111 mmol/L (98-107); Est GFR (Non-African American) 18.2; Glucose 182 mg/dl (70-99); INR 1.1 (0.9-1.1); Magnesium 2.7 mg/dl (1.8-2.4); Partial Thromboplastin Ratio 0.8; Partial Thromboplastin Time 22.9 Seconds (21.0-31.0); Potassium 5.1 mmol/L (3.5-5.1); Prothrombin Time 11.3 Seconds (9.0-12.0); Sodium 144 mmol/L (136-145)
[2018-06-07 07:49] LABS: Albumin Globulin Ratio 0.8 (0.9-2); Alkaline Phosphatase 111 U/L (45-117); Bilirubin,Total 0.6 mg/dl (0.2-1); Globulin 3.7 gm/dl (2.5-4.0); Total Protein 6.7 gm/dl (6.4-8.2); Troponin I 0.062 ng/ml (0-0.045)
[2018-06-07 07:53] LABS: Basophils # (auto) 0.03 K/uL (0-0.2); Basophils % (auto) 0.3 %; Eosinophils # (auto) 0.25 K/uL (0-0.5); Eosinophils % (auto) 2.5 %; Immature Granulocytes # (auto) 0.12 K/uL (0.00-0.02); Immature Granulocytes % (auto) 1.2 %; Lymphocytes # (auto) 1.06 K/uL (1.2-3.4); Lymphocytes % (auto) 10.5 %; Monocytes # (auto) 0.64 K/uL (0.11-0.59); Monocytes % (auto) 6.4 %; Neutrophils # (auto) 7.95 K/uL (1.4-6.5); Neutrophils % (auto) 79.1 %
[2018-06-07 07:57] LABS: Appearance Urine Clear (Clear); Bacteria Urine Automated 2+ (Negative); Bilirubin Urine Negative (Negative); Blood Urine 2+ (Negative); Color Urine Yellow; Epithelial Cell Urine Auto >30 /lpf (0-5); Glucose Urine UA Trace (Negative); Ketones Urine Negative (Negative); Leukocyte Esterase Urine Negative (Negative); Nitrite Urine Negative (Negative); Protein Urine 4+ (Negative); RBC Urine Automated >30 /hpf (0-4); Specific Gravity Urine 1.018 (1.000-1.030); Urobilinogen Urine Negative (Negative); pH Urine 6.5 (4.5-7.5)
[2018-06-07] MEDS ORDERED: FUROSEMIDE 40 MG/4 ML VIAL IV STA (07:57)
[2018-06-07 08:31] LABS: Renal Epithelial Cells Urine 0-5 /lpf (0-5)
[2018-06-07] MEDS ORDERED: ACETAMINOPHEN 325 MG TAB PO PRN (09:02)
[2018-06-07] MEDS ORDERED: ONDANSETRON INJ 2 MG/ML 2 ML VIAL IV PRN (09:02)
[2018-06-07] MEDS ORDERED: POLYETHYLENE (MIRALAX) 17 GM PACK PO PRN (09:02)
--- NOTE | 2018-06-07 09:26 | History & Physical Report ---
Date of Service June 07, 2018 Assessment & Plan (1) Acute on chronic diastolic (congestive) heart failure: patient has been compliant with medications she does not weigh herself, states that she was not aware of her heart failure diagnosis says that her legs have been more swollen on Torsemide compared to Lasix in the past breathing improved after Lasix 40mg IV and nitro paste will give another dose of Lasix this afternoon, follow urine output with bush follow BMP closely, Cr up at 2.[address] Lopez, hold on repeat echo as she had one in December (2) VIVIAN (acute kidney injury): Cr is up slightly to 2.39, may increase further with diuresis follow closely K is 5.1, should improve with Lasix (3) CKD (chronic kidney disease), stage IV: follows with Dr. Alvarado, on Torsemide chronically has history of hydronephrosis, follows with Dr. Hughes, had ureteral stent in the past baseline Cr is 1.4-2.1, slightly higher than normal today (4) Hypoxia: acute hypoxic respiratory failure due to pulmonary edema should improve with Lasix breathing more comfortably already (5) Pulmonary HTN: ongoing issue, likely contributes to dyspnea chronically (6) CAD (coronary artery disease), [place] coronary artery: no chest pain troponin minimally elevated, check two sets continue Plavix, aspirin, Lipitor, Coreg (7) Hypertensive urgency: BP in 200's systolic initially, could have contributed to heart failure nitro paste on every 6 hours did not take meds this morning, resume Coreg, Hydralazine, Nitro paste (normally on Imdur 60mg) (8) Hyperlipidemia: continue Lipitor History of Present Illness Chief Complaint: I was short of breath Primary Care Provider: Joyce Rothman PA-C 83 yo female with history of chronic diastolic heart failure, CKD stage IV, hypertension presents with acute dyspnea that started suddenly this morning. Patient states that she was up reading in her recliner. She slid off the recliner forwards and was on the flood, could not get up. She started to get more and more short of breath and was weak. No symptoms of chest pain or pressure. She carries a diagnosis of heart failure but she does not get on a scale at home. She admits that she has had more swelling in her legs recently, very edematous. Her skin has been more dry and flakey. 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 She says that the Torsemide has not been working as well. She did not take any of her heart medications this morning. Blood pressure was markedly elevated on admission, she had rales on exam, pulmonary edema on CXR and she was in distress, hypoxic on room air. She repsonded quite well to Nitro paste, Lasix 40mg IV. Bush placed. She was stabilized and transferred to the floor. Allergies Allergy/AdvReac Type Severity Reaction Status Date / Time Bactrim Allergy Unknown felt like Verified 11/04/17 07:47 walking on eggs streptomycin Allergy Unknown UNSURE Verified 06/07/18 07:00 REACTION sulfamethoxazole Allergy Unknown felt like Verified 06/07/18 07:00 walking on eggs trimethoprim Allergy Unknown felt like Verified 06/07/18 07:00 walking on eggs Home Medications Home Medications Medication Instructions Recorded Confirmed Type aspirin [Aspir-81] 81 mg PO QAM 12/24/17 06/07/18 History atorvastatin 80 mg PO QPM 12/24/17 06/07/18 History clopidogrel 75 mg PO QAM 12/24/17 06/07/18 History carvedilol 25 mg PO BID #60 tab 12/28/17 06/07/18 Rx isosorbide mononitrate 60 mg PO QAM #30 tab 12/28/17 06/07/18 Rx nitroglycerin [Nitrostat] 0.4 mg SUBLINGUAL UD PRN #15 tab 12/28/17 06/07/18 Rx acetaminophen [Tylenol Extra 1,000 mg PO Q6H PRN 03/18/18 06/07/18 History Strength] ergocalciferol (vitamin D2) 50,000 unit PO MONTHLY 06/07/18 06/07/18 History hydralazine 50 mg PO TID 06/07/18 06/07/18 History magnesium 400 mg PO BID 06/07/18 06/07/18 History torsemide 10 mg PO DAILY 06/07/18 06/07/18 History Past Med/Surg History Social History Preferred Language: Moldovan Communication Ability: Effective Anatomic Pathology Manager Required: No Beliefs That Will Affect Care: None Current Living Situation: Family Current Living Situation Comment: lives with special needs daughter Other Information That Helps Us Care for You: No Feels Safe at Home: Yes Smoking Status: Never smoker Hx Alcohol Use: No Hx Substance Use: No Review of Systems All systems reviewed & are unremarkable except as noted in HPI & below Constitutional: + weight gain (edema); no fever, no chills, no sweats, no fatigue and no weakness Respiratory: + dyspnea and + dyspnea on exertion; no cough and no pain with cough Cardiovascular: + dyspnea, + dyspnea at rest, + dyspnea on exertion, + orthopnea and + edema; no chest pain, no chest pain at rest, no palpitations and no syncope Gastrointestinal: no abdominal pain, no nausea, no vomiting, no constipation and no diarrhea/loose stools Integumentary: + dry skin Physical Exam Vital Signs (Past 24 Hours): Last Vital Signs Temp 36.4 C L 06/07/18 06:33 Pulse 50 L 06/07/18 08:43 Resp 18 06/07/18 08:43 BP 194/61 H 06/07/18 08:43 Pulse Ox 94 06/07/18 08:43 Constitutional: WD/WN, vitals as above + obese Eyes: PERRL, conjunctivae normal, anicteric sclerae ENMT: external ear and nose normal, oropharynx normal Neck: trachea midline, no thyromegaly Respiratory: normal respiratory effort; no respiratory distress Auscultation: + diminished lung sounds and + rales (bases); no rhonchi and no wheezes Cardiovascular: Rate/Rhythm: regular rate and regular rhythm Heart Sounds: normal S1 and normal S2; no murmur Vessels: + JVD Extremities: normal capillary refill and + edema (+3 [place] edema bilaterally) Gastrointestinal (Abdomen): normal bowel sounds, soft, nontender, no hepatosplenomegaly Musculoskeletal: no cyanosis or clubbing, extremities motor strength 5/5 Skin: + turgor decreased skin very dry in lower extremities, flaking skin Neurologic: patellar DTR's 2+ bilat, sensation intact and PERRL, EOMI, accommodation nl, no face palsy, no dysarthria Psychiatric: A+Ox3, euthymic affect Lymphatic: no cervical or axillary lymphadenopathy Results & Data Laboratory Results Laboratory Results - last 24 hr 06/07/18 06/07/18 06/07/18 07:10 07:10 07:10 WBC 10.05 RBC 3.93 L Hgb 11.3 L Hct 36.9 L MCV 93.9 MCH 28.8 MCHC 30.6 L RDW Std Deviation 56.0 H RDW Coeff of Nicolasa 16.0 H Plt Count 134 MPV 11.7 H Immature Gran % (Auto) 1.2 Neut % (Auto) 79.1 Lymph % (Auto) 10.5 [place] % (Auto) 6.4 Eos % (Auto) 2.5 Baso % (Auto) 0.3 Immature Gran # (Auto) 0.12 H Neut # (Auto) 7.95 H Lymph # (Auto) 1.06 L [place] # (Auto) 0.64 H Eos # (Auto) 0.25 Baso # (Auto) 0.03 PT 11.3 INR 1.1 APTT 22.9 PTT Ratio 0.8 VBG pH VBG pCO2 VBG pO2 VBG HCO3 VBG O2 Saturation VBG Base Excess Barometric Pressure Sodium 144 Potassium 5.1 Chloride 111 H Carbon Dioxide 29 Anion Gap 4.0 BUN 46 H Creatinine 2.39 H Est Cr Clr Drug Dosing Not Reportable Est GFR ( Amer) 21.0 Est GFR (Non-Af Amer) 18.2 BUN/Creatinine Ratio 19.5 Glucose 182 H Calcium 8.2 L Magnesium 2.7 H Total Bilirubin 0.6 AST 17 ALT 15 Alkaline Phosphatase 111 Troponin I 0.062 H* NT-Pro-B Natriuret Pep Total Protein 6.7 Albumin 3.0 L Globulin 3.7 Albumin/Globulin Ratio 0.8 L Urine Color Urine Appearance Urine pH Ur Specific [place] Urine Protein Urine Glucose (UA) Urine Ketones Urine Blood Urine Nitrite Urine Bilirubin Urine Urobilinogen Ur Leukocyte Esterase Urine WBC (Auto) Urine RBC (Auto) U Hyaline Cast (Auto) U Epithel Cells (Auto) Urine Bacteria (Auto) Ur Renal Epithelial Cell 06/07/18 06/07/18 06/07/18 07:28 07:35 11:22 WBC RBC Hgb Hct MCV MCH MCHC RDW Std Deviation RDW Coeff of Nicolasa Plt Count MPV Immature Gran % (Auto) Neut % (Auto) Lymph % (Auto) [place] % (Auto) Eos % (Auto) Baso % (Auto) Immature Gran # (Auto) Neut # (Auto) Lymph # (Auto) [place] # (Auto) Eos # (Auto) Baso # (Auto) PT INR APTT PTT Ratio VBG pH 7.26 L VBG pCO2 68 H VBG pO2 44 VBG HCO3 30 VBG O2 Saturation 73.3 VBG Base Excess 1.1 Barometric Pressure 741.3 Sodium Potassium Chloride Carbon Dioxide Anion Gap BUN Creatinine Est Cr Clr Drug Dosing Est GFR ( Amer) Est GFR (Non-Af Amer) BUN/Creatinine Ratio Glucose Calcium Magnesium Total Bilirubin AST ALT Alkaline Phosphatase Troponin I 0.390 H* NT-Pro-B Natriuret Pep Total Protein Albumin Globulin Albumin/Globulin Ratio Urine Color Yellow Urine Appearance Clear Urine pH 6.5 Ur Specific [place] 1.018 Urine Protein 4+ H Urine Glucose (UA) Trace H Urine Ketones Negative Urine Blood 2+ H Urine Nitrite Negative Urine Bilirubin Negative Urine Urobilinogen Negative Ur Leukocyte Esterase Negative Urine WBC (Auto) 5-10 H Urine RBC (Auto) >30 H U Hyaline Cast (Auto) 5-10 H U Epithel Cells (Auto) >30 H Urine Bacteria (Auto) 2+ H Ur Renal Epithelial Cell 0-5 06/07/18 06/07/18 11:22 16:43 WBC RBC Hgb Hct MCV MCH MCHC RDW Std Deviation RDW Coeff of Nicolasa Plt Count MPV Immature Gran % (Auto) Neut % (Auto) Lymph % (Auto) [place] % (Auto) Eos % (Auto) Baso % (Auto) Immature Gran # (Auto) Neut # (Auto) Lymph # (Auto) [place] # (Auto) Eos # (Auto) Baso # (Auto) PT INR APTT PTT Ratio VBG pH VBG pCO2 VBG pO2 VBG HCO3 VBG O2 Saturation VBG Base Excess Barometric Pressure Sodium Potassium Chloride Carbon Dioxide Anion Gap BUN Creatinine Est Cr Clr Drug Dosing Est GFR ( Amer) Est GFR (Non-Af Amer) BUN/Creatinine Ratio Glucose Calcium Magnesium Total Bilirubin AST ALT Alkaline Phosphatase Troponin I 0.848 H* NT-Pro-B Natriuret Pep 2848 H Total Protein Albumin Globulin Albumin/Globulin Ratio Urine Color Urine Appearance Urine pH Ur Specific [place] Urine Protein Urine Glucose (UA) Urine Ketones Urine Blood Urine Nitrite Urine Bilirubin Urine Urobilinogen Ur Leukocyte Esterase Urine WBC (Auto) Urine RBC (Auto) U Hyaline Cast (Auto) U Epithel Cells (Auto) Urine Bacteria (Auto) Ur Renal Epithelial Cell Diagnostic Findings XR chest 1V portable CLINICAL HISTORY: Dyspnea dyspnea COMPARISON STUDY: 12/24/2017 FINDINGS: Mild cardia megaly. Prominent pulmonary vasculature slightly increased compared to the prior study. Diaphragms are smooth. Very slight blunting right lateral gastric angle. IMPRESSION: Stable components of congestive failure. Medications Administered Current Inpatient Medications Acetaminophen (Tylenol) 650 mg PO Q4H PRN PRN Reason: Pain or Fever Stop: 07/07/18 09:01 Amlodipine Besylate (Norvasc) 5 mg PO QAM [facility] Stop: 07/07/18 12:14 Last Admin: 06/07/18 14:22 Dose: 5 mg Documented by: Aspirin (Ecotrin Ectab) 81 mg PO QAM [facility] Stop: 07/07/18 09:01 Last Admin: 06/07/18 11:25 Dose: 81 mg Documented by: Atorvastatin Calcium (Lipitor) 80 mg PO QPM [facility] Stop: 07/07/18 20:59 Last Admin: 06/07/18 19:41 Dose: 80 mg Documented by: Carvedilol (Coreg) 25 mg PO BID [facility] Stop: 07/07/18 09:01 Last Admin: 06/07/18 19:41 Dose: 25 mg Documented by: Clopidogrel Bisulfate (Plavix) 75 mg PO QAM [facility] Stop: 07/07/18 09:01 Last Admin: 06/07/18 11:24 Dose: 75 mg Documented by: Heparin Sodium (Porcine) (Heparin Sodium (Porcine)) 5,000 units SQ Q8 [facility] Stop: 07/07/18 13:59 Last Admin: 06/07/18 21:40 Dose: 5,000 units Documented by: Hydralazine HCl (Apresoline) 50 mg PO TID [facility] Stop: 07/07/18 09:01 Last Admin: 06/07/18 19:41 Dose: 50 mg Documented by: Magnesium Oxide (Mag-Ox) 400 mg PO BID [facility] Stop: 07/07/18 09:01 Last Admin: 06/07/18 19:43 Dose: 400 mg Documented by: Nitroglycerin (Nitro-Bid 2%) 1 inch EXT Q6 [facility] Stop: 07/07/18 11:59 Last Admin: 06/07/18 16:58 Dose: 1 inch Documented by: Ondansetron HCl (Zofran) 4 mg IV Q6H PRN PRN Reason: Nausea Stop: 07/07/18 09:01 Polyethylene Glycol (Miralax Powder Packet) 17 gm PO DAILY PRN PRN Reason: Constipation Stop: 07/07/18 09:01 Code Status & VTE Plan Code Status full code VTE Prophylaxis Plan VTE Prophylaxis will be ordered: Yes (1) Hyperlipidemia Hyperlipidemia type: unspecified Qualified Code(s): E78.5 - Hyperlipidemia, unspecified
[2018-06-07] MEDS ORDERED: dilTIAZem HCl 5 MG/ML 5 ML VIAL IV ONE (10:44)
--- NOTE | 2018-06-07 10:57 | Cardiology Consultation ---
Date of Consultation June 07, 2018 Assessment & Plan (1) Acute on chronic diastolic (congestive) heart failure: Mrs. Watson is a very pleasant 83-year-old white female with a history of CAD s/p RCA territory infarct 03/21/2012, Chronic LBBB, Paroxysmal Supraventricular Tachycardia (no recurrences for several years), Paroxysmal Atrial Fibrillation, Type 2 Diabetes Mellitus, Hypertension, Hypercholesterolemia, Chronic Kidney Disease, Sleep Apnea on CPAP with supplemental O2, and RVOT Ventricular Tachycardia who presented acutely to [facility] earlier today with Dyspnea, Hypoxemia, Leg Edema, and Pulmonary Edema consistent with Acute on Chronic Diastolic CHF. This is likely secondary to dietary salt indiscretion, moderate concentric LVH with diastolic dysfunction, uncontrolled hypertension, and likely her pulmonary hypertension plays a role in it as well. -- Continue Coreg 25 mg bid. -- Continue IV Lasix 40 mg daily until euvolemic or creatinine progressively rises. -- Add Amlodipine 5 mg daily. Would prefer non-dihydropyridine CCB, but heart rate is low already. -- Check Pro-BNP. -- Monitor daily labs. -- Monitor daily body weights, I&O's. -- Maintain a 2 gram low sodium diet. Present on Admission?: Yes (2) Elevated troponin: Likely secondary to uncontrolled hypertension, acute CHF, LVH, and underlying CAD. This does not appear to be an ACS -- likely demand ischemia. Would not recommend pursuing further ischemic workup at this time unless patient develops any angina pectoris or her anginal equivalent. Present on Admission?: Yes (3) CAD (coronary artery disease), [place] coronary artery: -- Continue Coreg 25 mg bid. -- Continue Aspirin 81 mg daily. -- Continue Plavix 75 mg daily. -- Continue Lipitor 80 mg daily. -- Continue Imdur 60 mg daily. Present on Admission?: Yes (4) Hypertensive urgency: -- Continue Coreg 25 mg bid. -- Continue Imdur 60 mg daily. -- Continue Hydralazine 50 mg tid. -- Start Amlodipine 5 mg daily. -- Would either increase maintenance Torsemide dose at discharge or discharge on Lasix. Present on Admission?: Yes Supervising Physician Co-Signing Physician Notes Nick Lopez MD History of Present Illness Reason for Consultation: -- Acute on Chronic Diastolic CHF. Requesting Physician: Heraclio Ellison DO Attending Physician: Nick Lopez MD History of Present Illness Mrs. Watson is a very pleasant 82-year-old white female with a history of CAD s/p RCA territory infarct 03/21/2012, Chronic LBBB, Paroxysmal Supraventricular Tachycardia (no recurrences for several years), Paroxysmal Atrial Fibrillation, Type 2 Diabetes Mellitus, Hypertension, Hypercholesterolemia, Chronic Kidney Disease, Sleep Apnea on CPAP with supplemental O2, and RVOT Ventricular Tachycardia who presented acutely to [facility] earlier today after sliding out of her recliner at about 0330 and being unable to get back up. She subsequently contacted her son who could not pick her up off the floor -- so EMS was summoned. Patient states that over the past week she has been sleeping in a recliner and has noticed some mild shortness of breath, and [place]. However after several attempts to get up off the floor today -- she became more acutely short of breath, but did not have any chest discomfort, jaw pain, or any of her angina pectoris. On admission, she was noted to be markedly hypertensive, and remains hypertensive at this time. Patient also was noted pulmonary edema on chest x- ray, and a mildly elevated Troponin I level. Patient has received a dose of IV Lasix, and her shortness of breath is greatly improved. She continues to have swelling her legs which began in March 2018 after being switched from Lasix to Torsemide (which did not produce a brisk diuretic response like Lasix does). Admittedly, the patient has been eating more salt recently -- and admits to eating corned beef over 's Day. Additionally, the patient does not weigh herself on a daily basis. She denies any angina pectoris. She specifically denies any exertional chest pain, heaviness, tightness, or pressure. No exertional neck, jaw, back, or arm pain. No syncope or near syncope. No palpitations. She continues to take her medications and has not had any adverse side effects. Patient has had the following recent Cardiac Procedures / Studies: Echocardiogram 12/24/2017: -- Hyperdynamic LV systolic function. -- LVEF 65% to 70%, no regional wall motion abnormalities. -- Moderate concentric LVH with grade I LV diastolic dysfunction. -- Mild MR. -- Elevated RVSP 62 mmHg. Lexiscan Cardiolite 12/27/2017: -- Normal LVEF of 69%. -- Small, moderate in severity inferolateral perfusion defect although this was felt to be artifactual. Allergies Allergy/AdvReac Type Severity Reaction Status Date / Time Bactrim Allergy Unknown felt like Verified 11/04/17 07:47 walking on eggs streptomycin Allergy Unknown UNSURE Verified 06/07/18 07:00 REACTION sulfamethoxazole Allergy Unknown felt like Verified 06/07/18 07:00 walking on eggs trimethoprim Allergy Unknown felt like Verified 06/07/18 07:00 walking on eggs Home Medications Home Medications Medication Instructions Recorded Confirmed Type aspirin [Aspir-81] 81 mg PO QAM 12/24/17 06/07/18 History atorvastatin 80 mg PO QPM 12/24/17 06/07/18 History clopidogrel 75 mg PO QAM 12/24/17 06/07/18 History carvedilol 25 mg PO BID #60 tab 12/28/17 06/07/18 Rx isosorbide mononitrate 60 mg PO QAM #30 tab 12/28/17 06/07/18 Rx nitroglycerin [Nitrostat] 0.4 mg SUBLINGUAL UD PRN #15 tab 12/28/17 06/07/18 Rx acetaminophen [Tylenol Extra 1,000 mg PO Q6H PRN 03/18/18 06/07/18 History Strength] ergocalciferol (vitamin D2) 50,000 unit PO MONTHLY 06/07/18 06/07/18 History hydralazine 50 mg PO TID 06/07/18 06/07/18 History magnesium 400 mg PO BID 06/07/18 06/07/18 History torsemide 10 mg PO DAILY 06/07/18 06/07/18 History Patient History Social History Preferred Language: Portuguese Communication Ability: Effective Accredited Legal Secretary Required: No Beliefs That Will Affect Care: None Current Living Situation: Family Current Living Situation Comment: lives with special needs daughter Other Information That Helps Us Care for You: No Feels Safe at Home: Yes Smoking Status: Never smoker Hx Alcohol Use: No Hx Substance Use: No Physical Exam Vital Signs (Past 24 Hours): Last Vital Signs Temp 36.4 C L 06/07/18 10:19 Pulse 68 06/07/18 10:19 Resp 17 06/07/18 10:19 BP 202/91 H 06/07/18 10:19 Pulse Ox 94 06/07/18 10:19 Physical Exam: Repeat BP 207/76. General: Patient in no acute distress. HEENT: Head is atraumatic, normocephalic. EOMs intact. Sclerae anicteric. Facies symmetric. No perioral cyanosis. Neck: No JVD. Carotid upstrokes +2 bilaterally without bruits. JVP is elevated. Chest and Lungs: Increased breath sounds and scattered hold in the bases bilaterally. CVS: S1 and S2 are regular, bradycardic at 52 bpm with a grade 1/6 basal systolic murmur. No obvious diastolic murmurs, gallops, or rubs. PMI is nondisplaced. No lifts, heaves, or thrills. No abdominal aortic or renal bruits. Abdominal Exam: Bowel sounds present. No masses, organomegaly, or tenderness. Extremities: No clubbing or cyanosis. Plus one right lower leg edema, +2 left ankle and lower leg edema.. Intact posterior tibial and radial pulses bilaterally. Neurologic Exam: Patient is awake, alert, and oriented. Pleasant and cooperative. Answers questions appropriately. Speech is clear. Normal movement in all 4 extremities. EKG 06/07/2018: -- NSR at 76 bpm with an LBBB and left axis deviation. -- No acute changes. TELEMETRY: -- Sinus Bradycardia at 52 bpm with an LBBB pattern. Results & Data Laboratory Results Laboratory Results - last 24 hr 06/07/18 06/07/18 06/07/18 07:10 07:10 07:10 WBC 10.05 RBC 3.93 L Hgb 11.3 L Hct 36.9 L MCV 93.9 MCH 28.8 MCHC 30.6 L RDW Std Deviation 56.0 H RDW Coeff of Nicolasa 16.0 H Plt Count 134 MPV 11.7 H Immature Gran % (Auto) 1.2 Neut % (Auto) 79.1 Lymph % (Auto) 10.5 [place] % (Auto) 6.4 Eos % (Auto) 2.5 Baso % (Auto) 0.3 Immature Gran # (Auto) 0.12 H Neut # (Auto) 7.95 H Lymph # (Auto) 1.06 L [place] # (Auto) 0.64 H Eos # (Auto) 0.25 Baso # (Auto) 0.03 PT 11.3 INR 1.1 APTT 22.9 PTT Ratio 0.8 VBG pH VBG pCO2 VBG pO2 VBG HCO3 VBG O2 Saturation VBG Base Excess Barometric Pressure Sodium 144 Potassium 5.1 Chloride 111 H Carbon Dioxide 29 Anion Gap 4.0 BUN 46 H Creatinine 2.39 H Est Cr Clr Drug Dosing Not Reportable Est GFR ( Amer) 21.0 Est GFR (Non-Af Amer) 18.2 BUN/Creatinine Ratio 19.5 Glucose 182 H Calcium 8.2 L Magnesium 2.7 H Total Bilirubin 0.6 AST 17 ALT 15 Alkaline Phosphatase 111 Troponin I 0.062 H* Total Protein 6.7 Albumin 3.0 L Globulin 3.7 Albumin/Globulin Ratio 0.8 L Urine Color Urine Appearance Urine pH Ur Specific [place] Urine Protein Urine Glucose (UA) Urine Ketones Urine Blood Urine Nitrite Urine Bilirubin Urine Urobilinogen Ur Leukocyte Esterase Urine WBC (Auto) Urine RBC (Auto) U Hyaline Cast (Auto) U Epithel Cells (Auto) Urine Bacteria (Auto) Ur Renal Epithelial Cell 06/07/18 06/07/18 07:28 07:35 WBC RBC Hgb Hct MCV MCH MCHC RDW Std Deviation RDW Coeff of Nicolasa Plt Count MPV Immature Gran % (Auto) Neut % (Auto) Lymph % (Auto) [place] % (Auto) Eos % (Auto) Baso % (Auto) Immature Gran # (Auto) Neut # (Auto) Lymph # (Auto) [place] # (Auto) Eos # (Auto) Baso # (Auto) PT INR APTT PTT Ratio VBG pH 7.26 L VBG pCO2 68 H VBG pO2 44 VBG HCO3 30 VBG O2 Saturation 73.3 VBG Base Excess 1.1 Barometric Pressure 741.3 Sodium Potassium Chloride Carbon Dioxide Anion Gap BUN Creatinine Est Cr Clr Drug Dosing Est GFR ( Amer) Est GFR (Non-Af Amer) BUN/Creatinine Ratio Glucose Calcium Magnesium Total Bilirubin AST ALT Alkaline Phosphatase Troponin I Total Protein Albumin Globulin Albumin/Globulin Ratio Urine Color Yellow Urine Appearance Clear Urine pH 6.5 Ur Specific [place] 1.018 Urine Protein 4+ H Urine Glucose (UA) Trace H Urine Ketones Negative Urine Blood 2+ H Urine Nitrite Negative Urine Bilirubin Negative Urine Urobilinogen Negative Ur Leukocyte Esterase Negative Urine WBC (Auto) 5-10 H Urine RBC (Auto) >30 H U Hyaline Cast (Auto) 5-10 H U Epithel Cells (Auto) >30 H Urine Bacteria (Auto) 2+ H Ur Renal Epithelial Cell 0-5 Medications Administered Active Medications Generic Name Dose Route Start Last Admin Trade Name Freq PRN Reason Stop Dose Admin Acetaminophen 650 mg 06/07/18 09:02 Tylenol PO 07/07/18 09:01 Q4H PRN Pain or Fever Aspirin 81 mg 06/07/18 09:02 Ecotrin Ectab PO 07/07/18 09:01 QAM [facility] Atorvastatin Calcium 80 mg 06/07/18 21:00 Lipitor PO 07/07/18 20:59 QPM [facility] Carvedilol 25 mg 06/07/18 09:02 Coreg PO 07/07/18 09:01 BID [facility] Clopidogrel Bisulfate 75 mg 06/07/18 09:02 Plavix PO 07/07/18 09:01 QAM [facility] Heparin Sodium (Porcine) 5,000 units 06/07/18 14:00 Heparin Sodium (Porcine) SQ 07/07/18 13:59 Q8 [facility] Hydralazine HCl 50 mg 06/07/18 09:02 Apresoline PO 07/07/18 09:01 TID [facility] Furosemide 40 mg/ Syringe 4 mls @ 4 mls/min 06/07/18 14:00 IV 06/07/18 14:01 ONE ONE Magnesium Oxide 400 mg 06/07/18 09:02 Mag-Ox PO 07/07/18 09:01 BID [facility] Nitroglycerin 1 inch 06/07/18 12:00 Nitro-Bid 2% EXT 07/07/18 11:59 Q6 [facility] Ondansetron HCl 4 mg 06/07/18 09:02 Zofran IV 07/07/18 09:01 Q6H PRN Nausea Polyethylene Glycol 17 gm 06/07/18 09:02 Miralax Powder Packet PO 07/07/18 09:01 DAILY PRN Constipation
[2018-06-07] MEDS: CARVEDILOL 25 MG TAB PO SCH ×2 (11:24→19:41)
[2018-06-07] MEDS: HydrALAZINE TAB 50 MG TAB PO SCH ×3 (11:24→19:41)
[2018-06-07] MEDS: CLOPIDOGREL BISULFATE 75 MG TAB PO SCH (11:24)
[2018-06-07] MEDS: MAGNESIUM OXIDE 400 MG TAB PO SCH ×2 (11:25→19:43)
[2018-06-07] MEDS: ASPIRIN 81 MG ECTAB PO SCH (11:25)
[2018-06-07] MEDS: NITROGLYCERIN 2% OINTMENT 30GM TUBE EXT SCH ×2 (13:03→16:58)
--- NOTE | 2018-06-07 13:43 | Emergency Department Note ---
Entered by Evelina Ramsey acting as a scribe for Alex Guadarrama MD ED Provider Note CHIEF COMPLAINT: Shortness of breath HISTORY OF PRESENT ILLNESS: The patient is an 83 year old female who presents to the Emergency Room with complaints of persistent shortness of breath beginning recently. Nursing staff reports the patient slid out of her recliner 3.5 hours ago, and was on the ground until EMS arrived. They note EMS reported an O2 saturation of 88% on room air, and the patient's saturation was 61% on arrival to the ED. The patient reports her legs have been increasingly swollen since her lasix pill was changed a few weeks ago. She states she uses a CPAP and 2L oxygen at night. The patient denies nebulizer or breathing treatment use. She notes she is a patient of Dr. Mays's office, and has not been seen there in a while. Pt denies LOC, headache, fevers, chills, diaphoresis, visual changes, neck pain, chest pain, nausea, vomiting, abdominal pain, back pain, melena, hematochezia, urinary symptoms, numbness, weakness, lymphadenopathy, rash, or other complaints. REVIEW OF SYSTEMS: See HPI for pertinent positives and negatives. A total of ten systems were reviewed and were otherwise negative. PMHx/PSHx: Diabetes, CAD, VIVIAN, HTN, LBBB, [place] (2013), gout, h/o left ureter stent, tonsillectomy, appendectomy. SOCIAL HISTORY: Patient lives at home with her daughter. PHYSICAL EXAM: GENERAL: Awake, alert, dyspneic-appearing, in no distress HENT: Normocephalic, atraumatic. Oropharynx unremarkable. EYES: Normal conjunctiva. Sclera non-icteric. NECK: Inspection normal. Non-tender. Supple. No nuchal rigidity. FROM. No masses. RESPIRATORY: Crackles bilaterally. Increased work of breathing. CARDIAC: Normal rate. Normal rhythm. No murmurs. No rubs. Extremities warm and well perfused. Pulses equal. No JVD. GI: Soft, non-distended. No tenderness to palpation. No rebound or guarding. No masses. RECTAL: Deferred. MUSCULOSKELETAL: Atraumatic. Chest examination reveals no tenderness. The back is symmetrical on inspection without obvious abnormality. There is no CVA tenderness to palpation. No joint edema. LOWER EXTREMITIES: Calves are equal size bilaterally and non-tender. 3+ edema. No discoloration. NEURO: Normal sensorium. No sensory or motor deficits noted. SKIN: No rash or jaundice noted. EMERGENCY DEPARTMENT COURSE: 0649: Past medical records reviewed. The patient was evaluated in room C6, and a complete history and physical examination were performed. 0748: I reevaluated and updated the patient. 0758: I reviewed the patient's case with Dr. Ellison, [facility] hospitalist. He will evaluate the patient for further management. MEDICAL DECISION MAKING: Prior records/ancillary studies reviewed. Patient has a history of left bundle branch block. She has also history of paroxysmal ventricular tachycardia. Triage Nursing notes reviewed and agree them. Additional history obtained from the family. The patient's history was concerning for shortness of breath. Differential diagnosis: Etiologies such as pneumonia, COPD, reactive airway disease, CHF, cardiac ischemia, pulmonary embolism, pneumothorax, musculoskeletal, infections, gastrointestinal, as well as others were entertained. Physical examination: As above. The patient was hypoxic requiring supplemental oxygen. She had significant peripheral edema. ER treatment provided: Sublingual nitroglycerin Nitropaste IV Lasix Owen catheter Supplemental oxygen On reassessment the patient felt better. Diagnostic interpretation by me: The electrocardiogram was negative for pathologic change. The labs revealed an elevated troponin. Renal insufficiency present but not significantly different from baseline. Chemistry panel otherwise unremarkable. Imaging studies: Chest x-ray consistent with CHF. The patient blood pressure is better controlled. She has had significant urine output. She is feeling better. She will need admission to the hospital. Consultation: A consultation was placed with the hospitalist. The case was discussed and diagnostics were reviewed. The patient was evaluated in the ER for further treatment. IMPRESSION: Hypoxia SOB (shortness of breath) CHF (congestive heart failure) Elevated troponin PLAN: Being evaluated by hospitalist. The scribe's documentation has been prepared under my direction and personally reviewed by me in its entirety. I confirm that the note above accurately reflects all work, treatment, procedures, and medical decision making performed by me. 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: No Beliefs That Will Affect Care: None Current Living Situation: Family Current Living Situation Comment: lives with special needs daughter Other Information That Helps Us Care for You: No Feels Safe at Home: Yes Smoking Status: Never smoker Hx Alcohol Use: No Hx Substance Use: No Results & Data Vital Signs Vital Signs - 24 hr 06/07/18 06:33 06/07/18 06:58 06/07/18 07:26 Temperature 36.4 C L Temperature Source Oral Sepsis Recent Fever Within 48 Hours No Sepsis New/Unexplained Change in Mental Status No Sepsis Action Taken by Nursing No Action Required Pulse Rate 79 72 Pulse Rate [Left Finger] 68 Pulse Rhythm [Left Finger] Pulse Strength [Left Finger] Respiratory Rate 17 18 Respiratory Effort / Characteristics Spontaneous SOB on Exertion Respiratory Depth Respiratory Pattern Blood Pressure 206/82 H Blood Pressure [Left Arm] 181/61 H Blood Pressure [Right Arm] Blood Pressure Mean 123 Blood Pressure Mean [Left Arm] 101 Blood Pressure Mean [Right Arm] Blood Pressure Position Sitting Blood Pressure Position [Left Arm] Blood Pressure Position [Right Arm] Pulse Oximetry 61 L 98 94 Oxygen Delivery Method Room Air Room Air Nasal Cannula Oxygen Flow Rate 4 2 06/07/18 08:02 06/07/18 08:43 06/07/18 09:02 Temperature Temperature Source Sepsis Recent Fever Within 48 Hours Sepsis New/Unexplained Change in Mental Status Sepsis Action Taken by Nursing Pulse Rate 50 L Pulse Rate [Left Finger] 62 Pulse Rhythm [Left Finger] Pulse Strength [Left Finger] Respiratory Rate 18 18 Respiratory Effort / Characteristics Non-Labored Spontaneous SOB on Exertion Normal for Patient Respiratory Depth Normal Respiratory Pattern Regular Blood Pressure 194/61 H Blood Pressure [Left Arm] 138/62 Blood Pressure [Right Arm] Blood Pressure Mean Blood Pressure Mean [Left Arm] 87 Blood Pressure Mean [Right Arm] Blood Pressure Position Blood Pressure Position [Left Arm] Blood Pressure Position [Right Arm] Pulse Oximetry 93 94 Oxygen Delivery Method Nasal Cannula Nasal Cannula Nasal Cannula Oxygen Flow Rate 2 2 2 06/07/18 10:18 06/07/18 10:19 06/07/18 11:21 Temperature 36.4 C L 36.4 C L 36.4 C L Temperature Source Oral Oral Oral Sepsis Recent Fever Within 48 Hours Sepsis New/Unexplained Change in Mental Status Sepsis Action Taken by Nursing Pulse Rate Pulse Rate [Left Finger] 79 68 84 Pulse Rhythm [Left Finger] Regular Regular Pulse Strength [Left Finger] Normal Normal Respiratory Rate 17 17 26 H Respiratory Effort / Characteristics Non-Labored Spontaneous Normal for Patient Non-Labored Spontaneous SOB on Exertion Normal for Patient Respiratory Depth Normal Normal Respiratory Pattern Regular Blood Pressure Blood Pressure [Left Arm] 202/91 H 202/91 H Blood Pressure [Right Arm] 207/76 H Blood Pressure Mean Blood Pressure Mean [Left Arm] 128 128 Blood Pressure Mean [Right Arm] 119 Blood Pressure Position Blood Pressure Position [Left Arm] Lying Lying Blood Pressure Position [Right Arm] Lying Pulse Oximetry 94 94 91 Oxygen Delivery Method Nasal Cannula Nasal Cannula Nasal Cannula Oxygen Flow Rate 2 2 2.0 06/07/18 13:05 Temperature Temperature Source Sepsis Recent Fever Within 48 Hours Sepsis New/Unexplained Change in Mental Status Sepsis Action Taken by Nursing Pulse Rate Pulse Rate [Left Finger] 66 Pulse Rhythm [Left Finger] Regular Pulse Strength [Left Finger] Normal Respiratory Rate 18 Respiratory Effort / Characteristics Non-Labored Spontaneous Respiratory Depth Normal Respiratory Pattern Blood Pressure Blood Pressure [Left Arm] Blood Pressure [Right Arm] 169/68 H Blood Pressure Mean Blood Pressure Mean [Left Arm] Blood Pressure Mean [Right Arm] 101 Blood Pressure Position Blood Pressure Position [Left Arm] Blood Pressure Position [Right Arm] Lying Pulse Oximetry 94 Oxygen Delivery Method Nasal Cannula Oxygen Flow Rate 2 Home Medications Current Medication List: was personally reviewed by me Laboratory Data Attestation: I reviewed the patient's lab results. Result diagrams: 06/07/18 07:10 06/07/18 07:10 Lab Results 06/07/18 06/07/18 06/07/18 Range/Units 07:10 07:10 07:10 WBC 10.05 (4.8-10.8) K/uL RBC 3.93 L (4.2-5.4) M/uL Hgb 11.3 L (12.0-16.0) g/dL Hct 36.9 L (37-47) % MCV 93.9 (80-100) fL MCH 28.8 (25-34) pg MCHC 30.6 L (32-36) g/dL RDW Std Deviation 56.0 H (36.4-46.3) fL RDW Coeff of Nicolasa 16.0 H (11.5-14.5) % Plt Count 134 (130-400) K/uL MPV 11.7 H (7.4-10.4) fL Immature Gran % (Auto) 1.2 % Neut % (Auto) 79.1 % Lymph % (Auto) 10.5 % [place] % (Auto) 6.4 % Eos % (Auto) 2.5 % Baso % (Auto) 0.3 % Immature Gran # (Auto) 0.12 H (0.00-0.02) K/uL Neut # (Auto) 7.95 H (1.4-6.5) K/uL Lymph # (Auto) 1.06 L (1.2-3.4) K/uL [place] # (Auto) 0.64 H (0.11-0.59) K/uL Eos # (Auto) 0.25 (0-0.5) K/uL Baso # (Auto) 0.03 (0-0.2) K/uL PT 11.3 (9.0-12.0) Seconds INR 1.1 (0.9-1.1) APTT 22.9 (21.0-31.0) Seconds PTT Ratio 0.8 VBG pH (7.36-7.41) VBG pCO2 (38-50) mmHg VBG pO2 mmHg VBG HCO3 mmol/L VBG O2 Saturation % VBG Base Excess mEq/L Barometric Pressure mm/Hg Sodium 144 (136-145) mmol/L Potassium 5.1 (3.5-5.1) mmol/L Chloride 111 H (98-107) mmol/L Carbon Dioxide 29 (21-32) mmol/L Anion Gap 4.0 (3-11) BUN 46 H (7-18) mg/dl Creatinine 2.39 H (0.6-1.2) mg/dl Est Cr Clr Drug Dosing Not Reportable Est GFR ( Amer) 21.0 Est GFR (Non-Af Amer) 18.2 BUN/Creatinine Ratio 19.5 (10-20) Glucose 182 H (70-99) mg/dl Calcium 8.2 L (8.5-10.1) mg/dl Magnesium 2.7 H (1.8-2.4) mg/dl Total Bilirubin 0.6 (0.2-1) mg/dl AST 17 (15-37) U/L ALT 15 (12-78) U/L Alkaline Phosphatase 111 (45-117) U/L Troponin I 0.062 H* (0-0.045) ng/ml NT-Pro-B Natriuret Pep (0-1800) pg/ml Total Protein 6.7 (6.4-8.2) gm/dl Albumin 3.0 L (3.4-5.0) gm/dl Globulin 3.7 (2.5-4.0) gm/dl Albumin/Globulin Ratio 0.8 L (0.9-2) Urine Color Urine Appearance (Clear) Urine pH (4.5-7.5) Ur Specific [place] (1.000-1.030) Urine Protein (Negative) Urine Glucose (UA) (Negative) Urine Ketones (Negative) Urine Blood (Negative) Urine Nitrite (Negative) Urine Bilirubin (Negative) Urine Urobilinogen (Negative) Ur Leukocyte Esterase (Negative) Urine WBC (Auto) (0-5) /hpf Urine RBC (Auto) (0-4) /hpf U Hyaline Cast (Auto) (0-5) /lpf U Epithel Cells (Auto) (0-5) /lpf Urine Bacteria (Auto) (Negative) Ur Renal Epithelial Cell (0-5) /lpf 06/07/18 06/07/18 06/07/18 Range/Units 07:28 07:35 11:22 WBC (4.8-10.8) K/uL RBC (4.2-5.4) M/uL Hgb (12.0-16.0) g/dL Hct (37-47) % MCV (80-100) fL MCH (25-34) pg MCHC (32-36) g/dL RDW Std Deviation (36.4-46.3) fL RDW Coeff of Nicolasa (11.5-14.5) % Plt Count (130-400) K/uL MPV (7.4-10.4) fL Immature Gran % (Auto) % Neut % (Auto) % Lymph % (Auto) % [place] % (Auto) % Eos % (Auto) % Baso % (Auto) % Immature Gran # (Auto) (0.00-0.02) K/uL Neut # (Auto) (1.4-6.5) K/uL Lymph # (Auto) (1.2-3.4) K/uL [place] # (Auto) (0.11-0.59) K/uL Eos # (Auto) (0-0.5) K/uL Baso # (Auto) (0-0.2) K/uL PT (9.0-12.0) Seconds INR (0.9-1.1) APTT (21.0-31.0) Seconds PTT Ratio VBG pH 7.26 L (7.36-7.41) VBG pCO2 68 H (38-50) mmHg VBG pO2 44 mmHg VBG HCO3 30 mmol/L VBG O2 Saturation 73.3 % VBG Base Excess 1.1 mEq/L Barometric Pressure 741.3 mm/Hg Sodium (136-145) mmol/L Potassium (3.5-5.1) mmol/L Chloride (98-107) mmol/L Carbon Dioxide (21-32) mmol/L Anion Gap (3-11) BUN (7-18) mg/dl Creatinine (0.6-1.2) mg/dl Est Cr Clr Drug Dosing Est GFR ( Amer) Est GFR (Non-Af Amer) BUN/Creatinine Ratio (10-20) Glucose (70-99) mg/dl Calcium (8.5-10.1) mg/dl Magnesium (1.8-2.4) mg/dl Total Bilirubin (0.2-1) mg/dl AST (15-37) U/L ALT (12-78) U/L Alkaline Phosphatase (45-117) U/L Troponin I 0.390 H* (0-0.045) ng/ml NT-Pro-B Natriuret Pep (0-1800) pg/ml Total Protein (6.4-8.2) gm/dl Albumin (3.4-5.0) gm/dl Globulin (2.5-4.0) gm/dl Albumin/Globulin Ratio (0.9-2) Urine Color Yellow Urine Appearance Clear (Clear) Urine pH 6.5 (4.5-7.5) Ur Specific [place] 1.018 (1.000-1.030) Urine Protein 4+ H (Negative) Urine Glucose (UA) Trace H (Negative) Urine Ketones Negative (Negative) Urine Blood 2+ H (Negative) Urine Nitrite Negative (Negative) Urine Bilirubin Negative (Negative) Urine Urobilinogen Negative (Negative) Ur Leukocyte Esterase Negative (Negative) Urine WBC (Auto) 5-10 H (0-5) /hpf Urine RBC (Auto) >30 H (0-4) /hpf U Hyaline Cast (Auto) 5-10 H (0-5) /lpf U Epithel Cells (Auto) >30 H (0-5) /lpf Urine Bacteria (Auto) 2+ H (Negative) Ur Renal Epithelial Cell 0-5 (0-5) /lpf 06/07/18 Range/Units 11:22 WBC (4.8-10.8) K/uL RBC (4.2-5.4) M/uL Hgb (12.0-16.0) g/dL Hct (37-47) % MCV (80-100) fL MCH (25-34) pg MCHC (32-36) g/dL RDW Std Deviation (36.4-46.3) fL RDW Coeff of Nicolasa (11.5-14.5) % Plt Count (130-400) K/uL MPV (7.4-10.4) fL Immature Gran % (Auto) % Neut % (Auto) % Lymph % (Auto) % [place] % (Auto) % Eos % (Auto) % Baso % (Auto) % Immature Gran # (Auto) (0.00-0.02) K/uL Neut # (Auto) (1.4-6.5) K/uL Lymph # (Auto) (1.2-3.4) K/uL [place] # (Auto) (0.11-0.59) K/uL Eos # (Auto) (0-0.5) K/uL Baso # (Auto) (0-0.2) K/uL PT (9.0-12.0) Seconds INR (0.9-1.1) APTT (21.0-31.0) Seconds PTT Ratio VBG pH (7.36-7.41) VBG pCO2 (38-50) mmHg VBG pO2 mmHg VBG HCO3 mmol/L VBG O2 Saturation % VBG Base Excess mEq/L Barometric Pressure mm/Hg Sodium (136-145) mmol/L Potassium (3.5-5.1) mmol/L Chloride (98-107) mmol/L Carbon Dioxide (21-32) mmol/L Anion Gap (3-11) BUN (7-18) mg/dl Creatinine (0.6-1.2) mg/dl Est Cr Clr Drug Dosing Est GFR ( Amer) Est GFR (Non-Af Amer) BUN/Creatinine Ratio (10-20) Glucose (70-99) mg/dl Calcium (8.5-10.1) mg/dl Magnesium (1.8-2.4) mg/dl Total Bilirubin (0.2-1) mg/dl AST (15-37) U/L ALT (12-78) U/L Alkaline Phosphatase (45-117) U/L Troponin I (0-0.045) ng/ml NT-Pro-B Natriuret Pep 2848 H (0-1800) pg/ml Total Protein (6.4-8.2) gm/dl Albumin (3.4-5.0) gm/dl Globulin (2.5-4.0) gm/dl Albumin/Globulin Ratio (0.9-2) Urine Color Urine Appearance (Clear) Urine pH (4.5-7.5) Ur Specific [place] (1.000-1.030) Urine Protein (Negative) Urine Glucose (UA) (Negative) Urine Ketones (Negative) Urine Blood (Negative) Urine Nitrite (Negative) Urine Bilirubin (Negative) Urine Urobilinogen (Negative) Ur Leukocyte Esterase (Negative) Urine WBC (Auto) (0-5) /hpf Urine RBC (Auto) (0-4) /hpf U Hyaline Cast (Auto) (0-5) /lpf U Epithel Cells (Auto) (0-5) /lpf Urine Bacteria (Auto) (Negative) Ur Renal Epithelial Cell (0-5) /lpf Administered Medications Aspirin (Ecotrin Ectab) 81 mg PO QAM [facility] Stop: 07/07/18 09:01 Last Admin: 06/07/18 11:25 Dose: 81 mg Documented by: [id number] Carvedilol (Coreg) 25 mg PO BID [facility] Stop: 07/07/18 09:01 Last Admin: 06/07/18 11:24 Dose: 25 mg Documented by: [id number] Clopidogrel Bisulfate (Plavix) 75 mg PO QAM [facility] Stop: 07/07/18 09:01 Last Admin: 06/07/18 11:24 Dose: 75 mg Documented by: [id number] Hydralazine HCl (Apresoline) 50 mg PO TID [facility] Stop: 07/07/18 09:01 Last Admin: 06/07/18 11:24 Dose: 50 mg Documented by: [id number] Magnesium Oxide (Mag-Ox) 400 mg PO BID [facility] Stop: 07/07/18 09:01 Last Admin: 06/07/18 11:25 Dose: 400 mg Documented by: [id number] Nitroglycerin (Nitro-Bid 2%) 1 inch EXT Q6 [facility] Stop: 07/07/18 11:59 Last Admin: 06/07/18 13:03 Dose: 1 inch Documented by: [id number] Discontinued Medications Albuterol (Duoneb) 3 ml INH NOW STA Stop: 06/07/18 06:51 Last Admin: 06/07/18 07:15 Dose: 3 ml Documented by: [id number] Chlordiazepoxide HCl (Librium) Confirm Administered Dose 10 mg PO .STK-MED ONE Stop: 06/07/18 09:39 Last Admin: 06/07/18 11:25 Dose: Not Given Documented by: [id number] Diltiazem HCl (Cardizem) Confirm Administered Dose 25 mg IV .STK-MED ONE Stop: 06/07/18 10:45 Last Admin: 06/07/18 11:27 Dose: Not Given Documented by: [id number] Furosemide (Lasix) 40 mg IV NOW STA Stop: 06/07/18 07:58 Last Admin: 06/07/18 08:00 Dose: 40 mg Documented by: [id number] Methylprednisolone (Solumedrol) 125 mg IV NOW STA Stop: 06/07/18 06:51 Last Admin: 06/07/18 07:15 Dose: 125 mg Documented by: [id number] Nitroglycerin (Nitrostat) 0.4 mg SL NOW STA Stop: 06/07/18 06:51 Last Admin: 06/07/18 07:16 Dose: 0.4 mg Documented by: [id number] Nitroglycerin (Nitro-Bid 2%) 0.5 inch EXT NOW STA Stop: 06/07/18 06:51 Last Admin: 06/07/18 07:15 Dose: 0.5 inch Documented by: [id number] Imaging Data Radiologist's Impression: Radiology results as stated below per my review and the radiologist's interpretation: XR chest 1V portable CLINICAL HISTORY: Dyspnea dyspnea COMPARISON STUDY: 12/24/2017 FINDINGS: Mild cardia megaly. Prominent pulmonary vasculature slightly increased compared to the prior study. Diaphragms are smooth. Very slight blunting right lateral gastric angle. IMPRESSION: Stable components of congestive failure. The above report was generated using voice recognition software. It may contain grammatical, syntax or spelling errors. Electronically signed by: Salvatore Puentes M.D. 06/07/2018 7:35 AM ECG Data Attestation: I personally reviewed and interpreted this ECG as follows: Indication: SOB/dyspnea Rate (beats per minute): 76 Rhythm: normal sinus Findings: + LBBB and + left axis deviation; no PAC, no PVC, no ST depression and no ST elevation Blood Pressure Blood Pressure Findings: Elevated blood pressure Blood Pressure Disposition: further management by hospitalist Discharge Plan Visit Data *Final* Discharge Date/Time: 06/07/18 08:43 Chief Complaint: Shortness of Breath/Dyspnea ED Provider: Alex Guadarrama Discharge Problem: Hypoxia, CHF (congestive heart failure), SOB (shortness of breath), Elevated troponin Patient Disposition: Admitted As Inpatient Discharge Instructions Interventions: ED Discharge Assessment Last Done: 06/07/18 08:43 Discharge Problem: CHF (congestive heart failure) Qualifiers: Heart failure type: unspecified Heart failure chronicity: unspecified Qualified Code(s): I50.9 - Heart failure, unspecified The scribe's documentation has been prepared under my direction and personally reviewed by me in its entirety. I confirm that the note above accurately reflects all work, treatment, procedures, and medical decision making performed by me.
[2018-06-07] MEDS ORDERED: FUROSEMIDE 40 MG in SYRINGE 0 ML IV ONE (14:00)
[2018-06-07] MEDS: HEPARIN SOD 5,000 UNIT/0.5 ML VIAL SQ SCH ×2 (14:22→21:40)
[2018-06-07] MEDS: AMLODIPINE BESYLATE 5 MG TAB PO SCH (14:22)
[2018-06-07] MEDS: ATORVASTATIN 40 MG TAB PO SCH (19:41)
[2018-06-08] MEDS: NITROGLYCERIN 2% OINTMENT 30GM TUBE EXT SCH ×4 (00:33→17:43)
[2018-06-08] MEDS: HEPARIN SOD 5,000 UNIT/0.5 ML VIAL SQ SCH ×3 (05:14→22:03)
[2018-06-08 06:22] LABS: Hematocrit (blood only) 34.4 % (37-47); Hemoglobin 10.8 g/dL (12.0-16.0); Immature Granulocytes # (auto) 0.02 K/uL (0.00-0.02); Immature Granulocytes % (auto) 0.3 %; Lymphocytes # (auto) 1.03 K/uL (1.2-3.4); Lymphocytes % (auto) 14.5 %; Mean Corpuscular Hgb Conc 31.4 g/dL (32-36); Mean Corpuscular Volume 92.2 fL (80-100); Mean Platelet Volume 11.9 fL (7.4-10.4); Monocytes # (auto) 0.32 K/uL (0.11-0.59); Monocytes % (auto) 4.5 %; Neutrophils # (auto) 5.71 K/uL (1.4-6.5); Neutrophils % (auto) 80.7 %; Platelet Count 130 K/uL (130-400); RDW Coefficient of Variation 15.9 % (11.5-14.5); Red Blood Count 3.73 M/uL (4.2-5.4); White Blood Count 7.08 K/uL (4.8-10.8)
[2018-06-08 06:59] LABS: BUN Creatinine Ratio 22.8 (10-20); Calcium 8.3 mg/dl (8.5-10.1); Creatinine Clr Calc Pharmacy 23.3 ml/min; Est GFR (African American) 20.9; Est GFR (Non-African American) 18.1; Potassium 5.1 mmol/L (3.5-5.1)
[2018-06-08] MEDS: CARVEDILOL 25 MG TAB PO SCH ×2 (07:58→20:14)
[2018-06-08] MEDS: ASPIRIN 81 MG ECTAB PO SCH (07:58)
[2018-06-08] MEDS: HydrALAZINE TAB 50 MG TAB PO SCH ×3 (07:58→20:16)
[2018-06-08] MEDS: MAGNESIUM OXIDE 400 MG TAB PO SCH ×2 (07:58→20:16)
[2018-06-08] MEDS: CLOPIDOGREL BISULFATE 75 MG TAB PO SCH (07:59)
[2018-06-08] MEDS: AMLODIPINE BESYLATE 5 MG TAB PO SCH (07:59)
[2018-06-08] MEDS ORDERED: FUROSEMIDE 40 MG in SYRINGE 0 ML IV SCH (09:00)
--- NOTE | 2018-06-08 10:11 | Cardiology Progress Note ---
Date of Service June 08, 2018 Assessment & Plan (1) Acute on chronic diastolic (congestive) heart failure: The patient is diuresing well on intravenous furosemide. Echocardiogram back in December noted normal systolic function, moderate LVH, and evidence of diastolic dysfunction. Continue current regimen. (2) Elevated troponin: Likely secondary to a supply demand mismatch. Doubt myocardial ischemia. No further evaluation necessary at this time. (3) CAD (coronary artery disease), [place] coronary artery: Status post IMI back in February 2012. Continue medical management. (4) Hypertensive urgency: Blood pressure better controlled with the addition of amlodipine. Subjective Mrs. Watson is resting comfortably in the bedside chair without complaints of chest pain or dyspnea. Physical Exam Vital Signs (Past 24 Hours): Last Vital Signs Temp 37.1 C 06/08/18 07:32 Pulse 70 06/08/18 07:32 Resp 20 06/08/18 07:32 BP 155/62 H 06/08/18 07:32 Pulse Ox 92 06/08/18 07:32 Physical Exam: In general this is a mildly obese white female in no acute distress. HEENT exam is negative. Neck is supple with full carotid upstrokes. Jugular venous pressure is 8 centimeters of water at 90 degrees. Cardiovascular exam reveals a regular rhythm with distant heart sounds. No obvious murmurs. Lungs are clear without rales, rhonchi, or wheezes. Abdomen is soft nontender without bruits. Extremities reveal intact radial artery pulses bilaterally. 2+ pretibial edema is noted. Results & Data Laboratory Results Laboratory Results - last 24 hr 06/07/18 06/07/18 06/07/18 11:22 11:22 16:43 WBC RBC Hgb Hct MCV MCH MCHC RDW Std Deviation RDW Coeff of Nicolasa Plt Count MPV Immature Gran % (Auto) Neut % (Auto) Lymph % (Auto) [place] % (Auto) Eos % (Auto) Baso % (Auto) Immature Gran # (Auto) Neut # (Auto) Lymph # (Auto) [place] # (Auto) Eos # (Auto) Baso # (Auto) Sodium Potassium Chloride Carbon Dioxide Anion Gap BUN Creatinine Est Cr Clr Drug Dosing Est GFR ( Amer) Est GFR (Non-Af Amer) BUN/Creatinine Ratio Glucose Calcium Troponin I 0.390 H* 0.848 H* NT-Pro-B Natriuret Pep 2848 H 06/08/18 06/08/18 05:49 05:49 WBC 7.08 RBC 3.73 L Hgb 10.8 L Hct 34.4 L MCV 92.2 MCH 29.0 MCHC 31.4 L RDW Std Deviation 54.0 H RDW Coeff of Nicolasa 15.9 H Plt Count 130 MPV 11.9 H Immature Gran % (Auto) 0.3 Neut % (Auto) 80.7 Lymph % (Auto) 14.5 [place] % (Auto) 4.5 Eos % (Auto) 0.0 Baso % (Auto) 0.0 Immature Gran # (Auto) 0.02 Neut # (Auto) 5.71 Lymph # (Auto) 1.03 L [place] # (Auto) 0.32 Eos # (Auto) 0.00 Baso # (Auto) 0.00 Sodium 145 Potassium 5.1 Chloride 111 H Carbon Dioxide 30 Anion Gap 4.0 BUN 55 H Creatinine 2.40 H Est Cr Clr Drug Dosing 23.3 Est GFR ( Amer) 20.9 Est GFR (Non-Af Amer) 18.1 BUN/Creatinine Ratio 22.8 H Glucose 141 H Calcium 8.3 L Troponin I NT-Pro-B Natriuret Pep Diagnostic Findings youth nutritional monitor is benign.
[2018-06-08] MEDS ORDERED: FUROSEMIDE 40 MG in SYRINGE 0 ML IV ONE (14:46)
--- NOTE | 2018-06-08 16:27 | Hospitalist Progress Note ---
Date of Service June 08, 2018 Assessment & Plan (1) Acute on chronic diastolic (congestive) heart failure: patient has been compliant with medications she does not weigh herself, states that she was not aware of her heart failure diagnosis says that her legs have been more swollen on Torsemide compared to Lasix in the past great response to Lasix IV, -3500cc thus far Cr holding at 2.4 will give additional Lasix 40mg IV this afternoon repeat Cr in the morning still with significant lower extremity edema (2) VIVIAN (acute kidney injury): Cr is up but stable at 2.4, may increase further with diuresis, watch closely K is stable (3) CKD (chronic kidney disease), stage IV: follows with Dr. Alvarado, on Torsemide chronically has history of hydronephrosis, follows with Dr. Hughes, had ureteral stent in t he past baseline Cr is 1.4-2.1, slightly higher than normal currently (4) Hypoxia: resolved, breathing well today on room air, 93% (5) Pulmonary HTN: ongoing issue, likely contributes to dyspnea chronically (6) CAD (coronary artery disease), [place] coronary artery: no chest pain troponin minimally elevated, not significant continue Plavix, aspirin, Lipitor, Coreg (7) Hypertensive urgency: BP in 200's systolic initially, could have contributed to heart failure nitro paste on every 6 hours Norvasc added by cardiology, improved BP control resume Imdur in the morning continue Coreg and Hydralazine and Lasix (8) Hyperlipidemia: continue Lipitor Subjective patient breathing easy today, minimal dyspnea on exertion sitting up in recliner eating well no chest pain, bush still in place, responding well to Lasix Cr is 2.4, was 2.39 yesterday still with significant amount of edema will give additional dose of Lasix today discussed with cardiology will transfer to medical floor Review of Systems All systems reviewed & are unremarkable except as noted in HPI & below Physical Exam Vital Signs (Past 24 Hours): Last Vital Signs Temp 36.8 C 06/08/18 14:38 Pulse 60 06/08/18 14:38 Resp 16 06/08/18 14:38 BP 162/61 H 06/08/18 14:38 Pulse Ox 93 06/08/18 14:38 Constitutional: WD/WN, vitals as above + obese Eyes: PERRL, conjunctivae normal, anicteric sclerae ENMT: external ear and nose normal, oropharynx normal Neck: trachea midline, no thyromegaly Respiratory: normal respiratory effort; no respiratory distress Auscultation: lungs clear to auscultation bilaterally Cardiovascular: Rate/Rhythm: regular rate and regular rhythm Heart Sounds: normal S1 and normal S2; no murmur Vessels: + JVD Extremities: normal capillary refill and + edema (+2 pitting edema bilaterally, slightly improved) Gastrointestinal (Abdomen): normal bowel sounds, soft, nontender, no hepatosplenomegaly Musculoskeletal: no cyanosis or clubbing, extremities motor strength 5/5 Skin: + turgor decreased Neurologic: patellar DTR's 2+ bilat, sensation intact and PERRL, EOMI, accommodation nl, no face palsy, no dysarthria Psychiatric: A+Ox3, euthymic affect Lymphatic: no cervical or axillary lymphadenopathy Results & Data Laboratory Results Laboratory Results - last 24 hr 06/07/18 06/08/18 06/08/18 16:43 05:49 05:49 WBC 7.08 RBC 3.73 L Hgb 10.8 L Hct 34.4 L MCV 92.2 MCH 29.0 MCHC 31.4 L RDW Std Deviation 54.0 H RDW Coeff of Nicolasa 15.9 H Plt Count 130 MPV 11.9 H Immature Gran % (Auto) 0.3 Neut % (Auto) 80.7 Lymph % (Auto) 14.5 [place] % (Auto) 4.5 Eos % (Auto) 0.0 Baso % (Auto) 0.0 Immature Gran # (Auto) 0.02 Neut # (Auto) 5.71 Lymph # (Auto) 1.03 L [place] # (Auto) 0.32 Eos # (Auto) 0.00 Baso # (Auto) 0.00 Sodium 145 Potassium 5.1 Chloride 111 H Carbon Dioxide 30 Anion Gap 4.0 BUN 55 H Creatinine 2.40 H Est Cr Clr Drug Dosing 23.3 Est GFR ( Amer) 20.9 Est GFR (Non-Af Amer) 18.1 BUN/Creatinine Ratio 22.8 H Glucose 141 H Calcium 8.3 L Troponin I 0.848 H* Medications Administered Current Inpatient Medications Acetaminophen (Tylenol) 650 mg PO Q4H PRN PRN Reason: Pain or Fever Stop: 07/07/18 09:01 Amlodipine Besylate (Norvasc) 5 mg PO QAM [facility] Stop: 07/07/18 12:14 Last Admin: 06/08/18 07:59 Dose: 5 mg Documented by: Aspirin (Ecotrin Ectab) 81 mg PO QAM [facility] Stop: 07/07/18 09:01 Last Admin: 06/08/18 07:58 Dose: 81 mg Documented by: Atorvastatin Calcium (Lipitor) 80 mg PO QPM [facility] Stop: 07/07/18 20:59 Last Admin: 06/07/18 19:41 Dose: 80 mg Documented by: Carvedilol (Coreg) 25 mg PO BID [facility] Stop: 07/07/18 09:01 Last Admin: 06/08/18 07:58 Dose: 25 mg Documented by: Clopidogrel Bisulfate (Plavix) 75 mg PO QAM [facility] Stop: 07/07/18 09:01 Last Admin: 06/08/18 07:59 Dose: 75 mg Documented by: Heparin Sodium (Porcine) (Heparin Sodium (Porcine)) 5,000 units SQ Q8 [facility] Stop: 07/07/18 13:59 Last Admin: 06/08/18 05:14 Dose: 5,000 units Documented by: Hydralazine HCl (Apresoline) 50 mg PO TID [facility] Stop: 07/07/18 09:01 Last Admin: 06/08/18 14:38 Dose: 50 mg Documented by: Furosemide 40 mg/ Syringe 4 mls @ 4 mls/min IV QAM [facility] Stop: 07/08/18 08:59 Last Admin: 06/08/18 11:03 Dose: 4 mls/min Documented by: Isosorbide Mononitrate (Imdur Extended Rel) 60 mg PO QAM [facility] Stop: 07/09/18 08:59 Magnesium Oxide (Mag-Ox) 400 mg PO BID [facility] Stop: 07/07/18 09:01 Last Admin: 06/08/18 07:58 Dose: 400 mg Documented by: Nitroglycerin (Nitro-Bid 2%) 1 inch EXT Q6 [facility] Stop: 06/09/18 06:00 Last Admin: 06/08/18 13:07 Dose: 1 inch Documented by: Ondansetron HCl (Zofran) 4 mg IV Q6H PRN PRN Reason: Nausea Stop: 07/07/18 09:01 Polyethylene Glycol (Miralax Powder Packet) 17 gm PO DAILY PRN PRN Reason: Constipation Stop: 07/07/18 09:01 (1) Hyperlipidemia Hyperlipidemia type: unspecified Qualified Code(s): E78.5 - Hyperlipidemia, unspecified
[2018-06-08] MEDS: ATORVASTATIN 40 MG TAB PO SCH (20:15)
[2018-06-09] MEDS: HEPARIN SOD 5,000 UNIT/0.5 ML VIAL SQ SCH ×3 (06:31→21:18)
[2018-06-09] MEDS: NITROGLYCERIN 2% OINTMENT 30GM TUBE EXT SCH ×2 (06:31)
[2018-06-09 08:02] LABS: Basophils # (auto) 0.02 K/uL (0-0.2); Basophils % (auto) 0.3 %; Eosinophils # (auto) 0.05 K/uL (0-0.5); Eosinophils % (auto) 0.6 %; Hematocrit (blood only) 34.9 % (37-47); Hemoglobin 10.8 g/dL (12.0-16.0); Immature Granulocytes # (auto) 0.02 K/uL (0.00-0.02); Immature Granulocytes % (auto) 0.3 %; Lymphocytes # (auto) 2.44 K/uL (1.2-3.4); Lymphocytes % (auto) 31.3 %; Mean Corpuscular Hgb Conc 30.9 g/dL (32-36); Mean Corpuscular Volume 93.3 fL (80-100); Mean Platelet Volume 11.9 fL (7.4-10.4); Monocytes # (auto) 0.56 K/uL (0.11-0.59); Monocytes % (auto) 7.2 %; Neutrophils # (auto) 4.71 K/uL (1.4-6.5); Neutrophils % (auto) 60.3 %; Platelet Count 131 K/uL (130-400); RDW Coefficient of Variation 16.3 % (11.5-14.5); RDW Standard Deviation 55.7 fL (36.4-46.3); Red Blood Count 3.74 M/uL (4.2-5.4)
[2018-06-09 08:28] LABS: BUN Creatinine Ratio 25.3 (10-20); Calcium 8.3 mg/dl (8.5-10.1); Creatinine Clr Calc Pharmacy 20.6 ml/min; Est GFR (African American) 17.9; Est GFR (Non-African American) 15.5; Potassium 4.6 mmol/L (3.5-5.1)
[2018-06-09] MEDS: ISOSORBIDE MONO EXTENDED REL 60 MG TABCR PO SCH (08:36)
[2018-06-09] MEDS: ASPIRIN 81 MG ECTAB PO SCH (08:37)
[2018-06-09] MEDS: HydrALAZINE TAB 50 MG TAB PO SCH ×3 (08:37→20:06)
[2018-06-09] MEDS: CLOPIDOGREL BISULFATE 75 MG TAB PO SCH (08:37)
[2018-06-09] MEDS: AMLODIPINE BESYLATE 5 MG TAB PO SCH (08:37)
[2018-06-09] MEDS: CARVEDILOL 25 MG TAB PO SCH ×3 (08:37→20:05)
[2018-06-09] MEDS: MAGNESIUM OXIDE 400 MG TAB PO SCH ×2 (08:38→20:06)
--- NOTE | 2018-06-09 09:58 | Hospitalist Progress Note ---
Date of Service June 09, 2018 Assessment & Plan (1) Acute on chronic diastolic (congestive) heart failure: patient has been compliant with medications she does not weigh herself, states that she was not aware of her heart failure diagnosis says that her legs have been more swollen on Torsemide compared to Lasix in the past great response to Lasix IV, -4700cc thus far Cr up slightly at 2.7 today, but making great urine still with edema weight down 5kg to 112kg, weighed even less in December 2017 will reduce Lasix to 40mg IV daily today, follow UO and Cr she would like to go home tomorrow (2) VIVIAN (acute kidney injury): Cr is up slightly at 2.7 but expected with Lasix IV K is normal today (3) CKD (chronic kidney disease), stage IV: follows with Dr. Alvarado, on Torsemide chronically has history of hydronephrosis, follows with Dr. Hughes, had ureteral stent in the past baseline Cr is 1.4-2.1, slightly higher than normal currently at 2.7, monitor closely (4) Hypoxia: resolved, breathing well today on room air, no distress (5) Pulmonary HTN: ongoing issue, likely contributes to dyspnea chronically (6) CAD (coronary artery disease), [place] coronary artery: no chest pain troponin minimally elevated, not significant continue Plavix, aspirin, Lipitor, Coreg (7) Hypertensive urgency: BP in 200's systolic initially, could have contributed to heart failure Norvasc added by cardiology, improved BP control resume Imdur in the morning continue Coreg and Hydralazine and Lasix (8) Hyperlipidemia: continue Lipitor plan: PT/OT ordered, patient would like to go home tomorrow, will discuss with cardiology check BMP in the morning Subjective patient continues to feel well, breathing stable still making urine, diuresing, - 4700cc for the admission, weight down to 112kg from 117kg reviewed prior records, in December 2017 she weight 108kg still has pitting edema, she says she always has edema unless she wears PRIETO stockings she is eating well, moving bowels, bush still in place reviewed labs, Cr up to 2.7 after Lasix twice yesterday, will only plan for one dose today as she is still volume overloaded blood pressure better on additional Norvasc Review of Systems All systems reviewed & are unremarkable except as noted in HPI & below Physical Exam 2 Vital Signs (Past 24 Hours): Last Vital Signs Temp 36.8 C 06/09/18 08:05 Pulse 50 L 06/09/18 08:05 Resp 20 06/09/18 08:05 BP 156/61 H 06/09/18 08:05 Pulse Ox 91 06/09/18 08:05 Constitutional: WD/WN, vitals as above + obese Eyes: PERRL, conjunctivae normal, anicteric sclerae ENMT: external ear and nose normal, oropharynx normal Neck: trachea midline, no thyromegaly Respiratory: normal respiratory effort; no respiratory distress Auscultation: lungs clear to auscultation bilaterally Cardiovascular: Rate/Rhythm: regular rate and regular rhythm Heart Sounds: normal S1 and normal S2; no murmur Extremities: normal capillary refill and + edema (+2 pitting edema bilaterally, slightly improved) Gastrointestinal (Abdomen): normal bowel sounds, soft, nontender, no hepatosplenomegaly Musculoskeletal: no cyanosis or clubbing, extremities motor strength 5/5 Skin: + turgor decreased Neurologic: patellar DTR's 2+ bilat, sensation intact and PERRL, EOMI, accommodation nl, no face palsy, no dysarthria Psychiatric: A+Ox3, euthymic affect Lymphatic: no cervical or axillary lymphadenopathy Results & Data Laboratory Results Laboratory Results - last 24 hr 06/09/18 06/09/18 07:27 07:27 WBC 7.80 RBC 3.74 L Hgb 10.8 L Hct 34.9 L MCV 93.3 MCH 28.9 MCHC 30.9 L RDW Std Deviation 55.7 H RDW Coeff of Nicolasa 16.3 H Plt Count 131 MPV 11.9 H Immature Gran % (Auto) 0.3 Neut % (Auto) 60.3 Lymph % (Auto) 31.3 [place] % (Auto) 7.2 Eos % (Auto) 0.6 Baso % (Auto) 0.3 Immature Gran # (Auto) 0.02 Neut # (Auto) 4.71 Lymph # (Auto) 2.44 [place] # (Auto) 0.56 Eos # (Auto) 0.05 Baso # (Auto) 0.02 Sodium 141 Potassium 4.6 Chloride 107 Carbon Dioxide 30 Anion Gap 5.0 BUN 69 H Creatinine 2.73 H D Est Cr Clr Drug Dosing 20.6 Est GFR ( Amer) 17.9 Est GFR (Non-Af Amer) 15.5 BUN/Creatinine Ratio 25.3 H Glucose 102 H Calcium 8.3 L Medications Administered Current Inpatient Medications Acetaminophen (Tylenol) 650 mg PO Q4H PRN PRN Reason: Pain or Fever Stop: 07/07/18 09:01 Amlodipine [facility]) [facility] [place] Stop: 07/07/18 12:14 Last Admin: 06/09/18 08:37 Dose: 5 mg Documented by: Aspirin (Ecotrin Ectab) 81 mg PO QAM [facility] Stop: 07/07/18 09:01 Last Admin: 06/09/18 08:37 Dose: 81 mg Documented by: Atorvastatin Calcium (Lipitor) 80 mg PO QPM [facility] Stop: 07/07/18 20:59 Last Admin: 06/08/18 20:15 Dose: 80 mg Documented by: Carvedilol (Coreg) 25 mg PO BID [facility] Stop: 07/07/18 09:01 Last Admin: 06/09/18 08:37 Dose: Not Given Documented by: Clopidogrel Bisulfate (Plavix) 75 mg PO QAM [facility] Stop: 07/07/18 09:01 Last Admin: 06/09/18 08:37 Dose: 75 mg Documented by: Heparin Sodium (Porcine) (Heparin Sodium (Porcine)) 5,000 units SQ Q8 [facility] Stop: 07/07/18 13:59 Last Admin: 06/09/18 06:31 Dose: 5,000 units Documented by: Hydralazine HCl (Apresoline) 50 mg PO TID [facility] Stop: 07/07/18 09:01 Last Admin: 06/09/18 08:37 Dose: 50 mg Documented by: Furosemide 40 mg/ Syringe 4 mls @ 4 mls/min IV ONE ONE Stop: 06/09/18 09:57 Isosorbide Mononitrate (Imdur Extended Rel) 60 mg PO [facility] Stop: 07/09/18 08:59 Last Admin: 06/09/18 08:36 Dose: 60 mg Documented by: Magnesium Oxide (Mag-Ox) 400 mg PO BID [facility] Stop: 07/07/18 09:01 Last Admin: 06/09/18 08:38 Dose: 400 mg Documented by: Ondansetron HCl (Zofran) 4 mg IV Q6H PRN PRN Reason: Nausea Stop: 07/07/18 09:01 Polyethylene Glycol (Miralax Powder Packet) 17 gm PO DAILY PRN PRN Reason: Constipation Stop: 07/07/18 09:01 (1) Hyperlipidemia Hyperlipidemia type: unspecified Qualified Code(s): E78.5 - Hyperlipidemia, unspecified
--- NOTE | 2018-06-09 10:11 | Cardiology Progress Note ---
Date of Service June 09, 2018 Assessment & Plan (1) Acute on chronic diastolic (congestive) heart failure: She continues to diurese well on intravenous froze my. Has lost over 10 pounds since admission. Echocardiogram back in December noted normal systolic function, moderate LVH, and evidence of diastolic dysfunction. Continue current regimen. (2) Elevated troponin: Likely secondary to a supply demand mismatch. No further evaluation necessary at this time. (3) CAD (coronary artery disease), [place] coronary artery: Status post IMI back in February 2012. Continue medical management. (4) Hypertensive urgency: Systolic blood pressure better controlled with the addition of amlodipine. Subjective Mrs. Watson is resting comfortably in the bedside chair without complaints. She is anxious for hospital discharge. Physical Exam Vital Signs (Past 24 Hours): Last Vital Signs Temp 36.8 C 06/09/18 08:05 Pulse 50 L 06/09/18 08:05 Resp 20 06/09/18 08:05 BP 156/61 H 06/09/18 08:05 Pulse Ox 91 06/09/18 08:05 Physical Exam: In general this is a mildly obese white female in no acute distress. HEENT exam is negative. Neck is supple with full carotid upstrokes. Jugular venous pressure is 8 centimeters of water at 90 degrees. Cardiovascular exam reveals a regular rhythm with distant heart sounds. No obvious murmurs. Lungs are clear without rales, rhonchi, or wheezes. Abdomen is soft nontender without bruits. Extremities reveal intact radial artery pulses bilaterally. 2+ pretibial edema is noted. Results & Data Laboratory Results Laboratory Results - last 24 hr 06/09/18 06/09/18 07:27 07:27 WBC 7.80 RBC 3.74 L Hgb 10.8 L Hct 34.9 L MCV 93.3 MCH 28.9 MCHC 30.9 L RDW Std Deviation 55.7 H RDW Coeff of Nicolasa 16.3 H Plt Count 131 MPV 11.9 H Immature Gran % (Auto) 0.3 Neut % (Auto) 60.3 Lymph % (Auto) 31.3 [place] % (Auto) 7.2 Eos % (Auto) 0.6 Baso % (Auto) 0.3 Immature Gran # (Auto) 0.02 Neut # (Auto) 4.71 Lymph # (Auto) 2.44 [place] # (Auto) 0.56 Eos # (Auto) 0.05 Baso # (Auto) 0.02 Sodium 141 Potassium 4.6 Chloride 107 Carbon Dioxide 30 Anion Gap 5.0 BUN 69 H Creatinine 2.73 H D Est Cr Clr Drug Dosing 20.6 Est GFR ( Amer) 17.9 Est GFR (Non-Af Amer) 15.5 BUN/Creatinine Ratio 25.3 H Glucose 102 H Calcium 8.3 L
[2018-06-09] MEDS ORDERED: FUROSEMIDE 40 MG in SYRINGE 0 ML IV ONE (10:15)
[2018-06-09] MEDS: ATORVASTATIN 40 MG TAB PO SCH (20:05)
[2018-06-10] MEDS: HEPARIN SOD 5,000 UNIT/0.5 ML VIAL SQ SCH ×2 (05:37→13:29)
[2018-06-10 07:27] LABS: BUN Creatinine Ratio 26.6 (10-20); Calcium 7.9 mg/dl (8.5-10.1); Creatinine Clr Calc Pharmacy 21.5 ml/min; Est GFR (African American) 19.1; Est GFR (Non-African American) 16.5; Magnesium 2.5 mg/dl (1.8-2.4); Potassium 4.7 mmol/L (3.5-5.1)
[2018-06-10] MEDS: HydrALAZINE TAB 50 MG TAB PO SCH ×3 (07:56→14:07)
[2018-06-10] MEDS: ISOSORBIDE MONO EXTENDED REL 60 MG TABCR PO SCH (07:57)
[2018-06-10] MEDS: AMLODIPINE BESYLATE 5 MG TAB PO SCH (07:58)
[2018-06-10] MEDS: ASPIRIN 81 MG ECTAB PO SCH (08:52)
[2018-06-10] MEDS: MAGNESIUM OXIDE 400 MG TAB PO SCH (08:52)
[2018-06-10] MEDS: CLOPIDOGREL BISULFATE 75 MG TAB PO SCH (08:52)
--- NOTE | 2018-06-10 12:59 | Cardiology Progress Note ---
Date of Service June 10, 2018 Assessment & Plan (1) Acute on chronic diastolic (congestive) heart failure: She has diuresed well on intravenous furosemide. Would discharge her to home on furosemide 40 mg p.o. daily with an additional dose when necessary for a 3 pound weight gain. Have discussed the concept of a dry weight. The patient voices an understanding. (2) Elevated troponin: Likely secondary to a supply demand mismatch. (3) CAD (coronary artery disease), [place] coronary artery: Status post IMI back in February 2012. Continue medical management. (4) Hypertensive urgency: Subjective Mrs. Watson is resting comfortably in the bedside chair without complaints of dyspnea. She is anxious for hospital discharge. Physical Exam Vital Signs (Past 24 Hours): Last Vital Signs Temp 36.9 C 06/10/18 12:29 Pulse 56 L 06/10/18 12:29 Resp 20 06/10/18 12:29 BP 146/62 H 06/10/18 12:29 Pulse Ox 90 06/10/18 12:29 Physical Exam: In general this is a mildly obese white female in no acute distress. HEENT exam is negative. Neck is supple with full carotid upstrokes. No JVD. Cardiovascular exam reveals a regular rhythm with distant heart sounds. No obvious murmurs. Lungs are clear without rales, rhonchi, or wheezes. Abdomen is soft nontender without bruits. Extremities reveal intact radial artery pulses bilaterally. 2+ pretibial edema is noted. Results & Data Laboratory Results Laboratory Results - last 24 hr 06/10/18 06:34 Sodium 141 Potassium 4.7 Chloride 108 H Carbon Dioxide 31 Anion Gap 2.0 L BUN 69 H Creatinine 2.59 H Est Cr Clr Drug Dosing 21.5 Est GFR ( Amer) 19.1 Est GFR (Non-Af Amer) 16.5 BUN/Creatinine Ratio 26.6 H Glucose 94 Calcium 7.9 L Magnesium 2.5 H
--- NOTE | 2018-06-10 14:48 | Discharge Summary ---
Date of Service June 10, 2018 Admission HPI Per Admitting Provider 83 yo female with history of chronic diastolic heart failure, CKD stage IV, hypertension presents with acute dyspnea that started suddenly this morning. Patient states that she was up reading in her recliner. She slid off the recliner forwards and was on the flood, could not get up. She started to get more and more short of breath and was weak. No symptoms of chest pain or pressure. She carries a diagnosis of heart failure but she does not get on a scale at home. She admits that she has had more swelling in her legs recently, very edematous. Her skin has been more dry and flakey. She says that her automobile mechanic radiator and modeling teacher had changed her diuretic from Lasix to Torsemide due to renal function. She says that the Torsemide has not been working as well. She did not take any of her heart medications this morning. Blood pressure was markedly elevated on admission, she had rales on exam, pulmonary edema on CXR and she was in distress, hypoxic on room air. She repsonded quite well to Nitro paste, Lasix 40mg IV. Owen placed. She was stabilized and transferred to the floor. Admission Exam Per Admitting Provider Constitutional: WD/WN, vitals as above + obese Eyes: PERRL, conjunctivae normal, anicteric sclerae ENMT: external ear and nose normal, oropharynx normal Neck: trachea midline, no thyromegaly Respiratory: normal respiratory effort; no respiratory distress Auscultation: + diminished lung sounds and + rales (bases); no rhonchi and no wheezes Cardiovascular: Rate/Rhythm: regular rate and regular rhythm Heart Sounds: normal S1 and normal S2; no murmur Vessels: + JVD Extremities: normal capillary refill and + edema (+3 pittine edema bilaterally) Gastrointestinal (Abdomen): normal bowel sounds, soft, nontender, no hepatosplenomegaly Musculoskeletal: no cyanosis or clubbing, extremities motor strength 5/5 Skin: + turgor decreased skin very dry in lower extremities, flaking skin Neurologic: patellar DTR's 2+ bilat, sensation intact and PERRL, EOMI, accommodation nl, no face palsy, no dysarthria Psychiatric: A+Ox3, euthymic affect Lymphatic: no cervical or axillary lymphadenopathy Principal Diagnosis Acute on chronic diastolic heart failure Discharge Exam Constitutional WD/WN, vitals as above + obese Eyes PERRL, conjunctivae normal, anicteric sclerae ENMT external ear and nose normal, oropharynx normal Neck trachea midline, no thyromegaly Respiratory normal respiratory effort; no respiratory distress Auscultation: lungs clear to auscultation bilaterally Cardiovascular Rate/Rhythm: regular rate and regular rhythm Heart Sounds: normal S1 and normal S2; no murmur Vessels: + JVD Extremities: normal capillary refill and + edema (+2 pitting edema bilaterally, improved overall) Gastrointestinal (Abdomen) normal bowel sounds, soft, nontender, no hepatosplenomegaly Musculoskeletal no cyanosis or clubbing, extremities motor strength 5/5 Skin + turgor decreased Neurologic patellar DTR's 2+ bilat, sensation intact and PERRL, EOMI, accommodation nl, no face palsy, no dysarthria Psychiatric A+Ox3, euthymic affect Lymphatic no cervical or axillary lymphadenopathy Discharge Data Allergies Allergy/AdvReac Type Severity Reaction Status Date / Time Bactrim Allergy Unknown felt like Verified 11/04/17 07:47 walking on eggs streptomycin Allergy Unknown UNSURE Verified 06/07/18 07:00 REACTION sulfamethoxazole Allergy Unknown felt like Verified 06/07/18 07:00 walking on eggs trimethoprim Allergy Unknown felt like Verified 06/07/18 07:00 walking on eggs Consultations 06/07/18 08:09 ED Decision to Admit Stat 06/07/18 09:02 Consult Case Management - Discharge Planning Routine 06/07/18 09:04 Consult Cardiology Routine Hospital Course (1) Acute on chronic diastolic (congestive) heart failure: patient has been compliant with medications she does not weigh herself, states that she was not aware of her heart failure diagnosis says that her legs have been more swollen on Torsemide compared to Lasix in the past great response to Lasix 40mg IV, -6100cc for the admission Cr down slightly at 2.59 on the day of discharge, but making great urine still with edema which she states is chronic weight down 6kg to 111kg, weighed even less in December 2017 (108 kg) patient eager to return home, breathing has been stable for days specific heart failure instructions provided fluid restriction, low sodium diet daily weight and will contact modeling teacher if weight goes up by 2-3lbs at any time will d/c home on Torsemide, she said that Dr. Alvarado placed her on this as a replacement for Lasix close follow up with PCP, modeling teacher and automobile mechanic radiator (2) VIVIAN (acute kidney injury): Cr is down slightly at 2.59 but expected with use of Lasix IV K is normal see below for CKD discussion (3) CKD (chronic kidney disease), stage IV: follows with Dr. Alvarado, on Torsemide 10mg chronically has history of hydronephrosis, follows with Dr. Hughes, had ureteral stent in the past baseline Cr is 1.4-2.1, but appears to be trending a little higher the past few months Cr ranged from 2.39-2.7 during admission, yogesh slightly while on Lasix 40mg IV BID Cr is 2.59 on day of discharge, making adequate urine, electrolytes stable follow up with Dr. Alvarado early June (4) Hypoxia: resolved, breathing well for several days on room air, no distress was due to acute heart failure (5) Pulmonary HTN: ongoing issue, likely contributes to dyspnea chronically (6) CAD (coronary artery disease), eyak coronary artery: no chest pain troponin minimally elevated, not significant continue Plavix, aspirin, Lipitor, Coreg (7) Hypertensive urgency: BP in 200's systolic initially, could have contributed to heart failure Norvasc added by cardiology, improved BP control continue Imdur, Coreg and Hydralazine and Torsemide (8) Hyperlipidemia: continue Lipitor PT/OT cleared patient to return home Total Time Total Time Spent Total Time Spent (In Minutes): 40 minutes Total Time Includes: Examination of the Patient, Discharge Planning, Medication Reconciliation and Communication With Other Providers (cardiology) Discharge Plan Discharge Items Patient Disposition: Home - Self-Care Reason For Visit: ACUTE HEART FAILURE Discharge Diagnosis: Acute on chronic diastolic heart failure Hypertensive urgency Condition: Good Discharge Goals: Improve disease control and Improve function Activity: Resume your previous activity Lifting: None Bathing: No limitations Exercise/Sports: None Non-emergency contact: Primary Care Provider, [employer] Artist and Motor Equipment Lieutenant Call non-emergency contact if: you have any medication questions, your symptoms worsen and you have a fever Follow-up/Referrals: Joyce Rothman PA-C [Primary Care Provider] - 06/16/18 8:30 am (Please, follow up with Joyce Rothman PA-C on June 16 at 8:30 am. *If you need to change this appointment, call the office at [phone].) Gordy Alvarado MD [Physician] - 06/23/18 2:15 pm (Please, follow up at [facility] Nephrology Office with Dr. Alvarado on June 23 at 2:15 pm. *This office is located in [address] of [facility]. If you need to change this appointment, call the office at [phone].) Nick Lopez MD [[employer] Artist] - 06/27/18 2:00 pm (Please, follow up at [facility] Cardiology Office with Dr. Lopez's clinical trials assistant, Elvis Saenz PA-C, on WednesdayJune 27 at 2:00 pm. *This office is located in [address] of [facility]. If you need to change this appointment, call the office at [phone].) Diet: Heart Healthy Fluids: 1500ml (6 cups) Addtl Provider Instructions: Medications: - NORVASC: new blood pressure medication added by cardiology, take 5mg once a day Acute on chronic diastolic heart failure treated aggressively with Lasix 40mg IV, removed 6 liters of fluid and weight down by 13 pounds renal function remained slightly higher than normal at 2.6, was 2.3 on admission recommend that you resume taking Torsemide daily, 10mg follow a fluid restriction of no more than 1500mL a day (all beverages, soup etc) low salt diet, less than 2gm a day, read food labels so you know how much sodium you are taking in step on scale every day, when you get home today step on the scale and record your weight every morning get on the scale after you urinate, before you eat breakfast if your weight is up by 2-3 lbs from baseline then call either Dr. Lopez or Dr. Alvarado for further instruction, either take more Torsemide or Lasix your weight will be most indicative of developing acute heart failure, want to prevent you from coming back Call 911 and go to the Emergency Room if: * You have tightness or pain in your chest that does not go away with rest or Nitroglycerin * You are very short of breath even with rest Call your doctor if any of the following symptoms or problems start or get worse: * Shortness of breath or difficulty breathing * Wake up at night short of breath * Chest pain * Cough * Swelling of your hands, fee, or legs * More fatigued or tired with your normal activity * Palpitations - sudden fast heart beats WEIGHT * Weigh yourself every morning after using the bathroom. * Use the same scale. * Wear the same amount of clothing. * Write your weight down on your chart. * Call your doctor if you gain more than 2-3 pounds in 1-2 days. MEDICATIONS * Use this discharge instruction sheet for instructions. * Take your medications at the time your doctor ordered. * Do not skip a dose of your medicines. * If you miss a dose of medicine, take as soon as possible, but DO NOT DOUBLE A DOSE. * Read your medicine information when you get home. * Know all of the side effects of your medicine. * Call your doctor's office if you have any side effects. * Be sure all of your doctors know what medicine and herbs you take (including cold, flu, and herbal medicine). * Pain Medicine: If you do not get relief from your pain, please call your doctor for help. Take the following with you to your follow-up doctor appointments: * Weight Chart * Medication List * List of questions Do not drink excessive alcohol, beer or wine. Prescriptions: New amlodipine [Norvasc] 5 mg Tablet 5 mg PO QAM 30 Days Qty: 30 RF: 3 Continued atorvastatin 80 mg tablet 80 mg PO QPM RF: 0 clopidogrel 75 mg tablet 75 mg PO QAM RF: 0 aspirin [Aspir-81] 81 mg Tablet,Delayed Release (Dr/Ec) 81 mg PO QAM RF: 0 carvedilol 25 mg Tablet 25 mg PO BID Qty: 60 RF: 0 isosorbide mononitrate 60 mg Tablet Extended Release 24 Hr 60 mg PO QAM Qty: 30 RF: 0 nitroglycerin [Nitrostat] 0.4 mg Tablet, Sublingual 0.4 mg Sublingual UD PRN (Reason: jaw pain) Qty: 15 RF: 0 acetaminophen [Tylenol Extra Strength] 500 mg Tablet 1,000 mg PO Q6H PRN (Reason: Pain) RF: 0 hydralazine 50 mg tablet 50 mg PO TID RF: 0 torsemide 10 mg tablet 10 mg PO DAILY RF: 0 ergocalciferol (vitamin D2) 50,000 unit capsule 50,000 unit PO MONTHLY RF: 0 magnesium 200 mg Tablet 400 mg PO BID RF: 0 Stand-Alone Forms: [facility] Discharge Orders: Discharge Order (Routine); Ordered 06/10/18 Ordered By: Heracloi Ellison Admission Data Admit Date/Time: 06/07/18 08:08 Attending Provider: Heraclio Ellison Admit Provider: Heraclio Ellison Primary Care Provider: Joyce Rothman Other Providers: Heraclio Ellison ; Nick Lopez Service: Medical Other Interventions: Discharge Summary Assessment (RN) Last Done: 06/10/18 12:29 Pending Studies at Discharge: No DC Date/Time DO NOT enter until pt leaves facility: 06/10/18 14:07
== END 2018-06-10 14:07 | disposition home or self-care (01) | DRG 291 ==
LOC: ED 06:24 → 2S 08:08 → 4W 06-08 14:34

== ENCOUNTER 2019-08-26 09:39 | Inpatient (IN) ==
[2019-08-26] MEDS ORDERED: PROMETHAZINE 6.25 MG/50.25 ML BAG IV STA (09:56)
[2019-08-26 10:08] LABS: Basophils # (auto) 0.01 K/uL (0-0.2); Basophils % (auto) 0.1 %; Hematocrit (blood only) 38.3 % (37-47); Hemoglobin 11.7 g/dL (12.0-16.0); Immature Granulocytes # (auto) 0.02 K/uL (0.00-0.02); Immature Granulocytes % (auto) 0.2 %; Lymphocytes # (auto) 1.43 K/uL (1.2-3.4); Mean Corpuscular Hemoglobin 29.6 pg (25-34); Mean Corpuscular Hgb Conc 30.5 g/dL (32-36); Mean Platelet Volume 11.8 fL (7.4-10.4); Monocytes # (auto) 0.35 K/uL (0.11-0.59); Monocytes % (auto) 4.2 %; Neutrophils # (auto) 6.62 K/uL (1.4-6.5); Neutrophils % (auto) 78.5 %; Platelet Count 154 K/uL (130-400); RDW Standard Deviation 53.7 fL (36.4-46.3); Red Blood Count 3.95 M/uL (4.2-5.4); White Blood Count 8.43 K/uL (4.8-10.8)
--- NOTE | 2019-08-26 10:12 | Emergency Department Note ---
Impression & Plan Pulmonary edema, Hypoxia, Non-ST elevation MA (NSTEMI), Nausea & vomiting ED Provider Note NAME: CAROL CARBALLO AGE: 84 SEX: F : 1935 ARRIVES VIA: Ambulance INFORMANT: Patient, additional history was obtained from the patient's son ED PROVIDER(S): Nick Bruner DO CHIEF COMPLAINT: Nausea vomiting HPI: The patient is an 84-year-old female who presented to the emergency department for an evaluation of nausea and vomiting. The patient states that she began having episodes of periumbilical pain last evening. She started noticing episodes of nausea vomiting today. She had 2 loose bowel movements but denies any rectal bleeding. She denies having any hematemesis. She states her symptoms are significantly improved at this time after vomiting but still has very severe pain as well as nausea. She was given Zofran prior to arrival. She denies having any chest pain. She does complain of shortness of breath as well as orthopnea. She normally wears oxygen but only at night. She was found to have significant hypoxia upon arrival to the emergency department and was placed on supplemental oxygen with significant improvement of her symptoms. She complains of lower extremity swelling as well. She has not been seen recently by her family doctor for the symptoms. ROS: See above HPI for pertinent positives & negatives. A total of 10 systems reviewed and were otherwise negative. PAST MEDICAL HISTORY: See Below PAST SURGICAL HISTORY: See Below FAMILY HISTORY: See Below SOCIAL HISTORY: See Below HOME MEDICATIONS: See Below ALLERGIES: See Below VITALS: See Below PHYSICAL EXAMINATION: GENERAL: The patient is awake and alert. She is very anxious appearing and appears to be uncomfortable. EYES: The conjunctivae are clear. The pupils are round and reactive. EARS, NOSE, MOUTH AND THROAT: The nose is without any evidence of any deformity. Mucous membranes are moist. Tongue is midline. NECK: The neck is nontender and supple. RESPIRATORY: Shallow respirations were noted. There were rales noted throughout. The patient had significant tachypnea as well as conversational dyspnea. CARDIOVASCULAR: Regular rate and rhythm noted there no murmurs rubs or gallops normal S1 normal S2. GASTROINTESTINAL: The abdomen is mildly distended. There is diffuse tenderness to palpation. There is an helical hernia noted. This is easily reducible but very tender. There is no overlying skin changes at this time. MUSCULOSKELETAL/EXTREMITIES: There is no evidence of gross deformity full range of motion is noted in the hips and shoulders. SKIN: Severe pedal edema was noted bilaterally. Skin was warm and dry. NEUROLOGIC: Patient is awake alert and oriented x3. MEDICAL DECISION MAKING: The patient is an 84-year-old female who presented to the emergency department by ambulance for an evaluation of nausea and vomiting. The patient was having a few loose bowel movements and complaining of abdominal pain. Initially her condition was felt to be due to an intra-abdominal process. She did have an umbilical hernia but it was easily reducible on physical exam. I discussed the patient's laboratory and radiographic studies with her. I also discussed her condition with her son who was very involved with the patient's case. At this time she was found to have an abnormal EKG but at baseline she does have a left bundle branch block. She was also found to have an elevated troponin. She was found to have signs of pulmonary edema with hypoxia but responded well to supplemental oxygen. I discussed her case with the on-call [facility] hospitalist. They have agreed to evaluate the patient in the emergency department for further management and disposition. The patient was started on heparin in the emergency department. Triage Nursing notes reviewed. Prior medical records reviewed Vital Signs: reviewed and remarkable for hypoxia Differential diagnosis: Etiologies such as appendicitis, diverticulitis, obstruction, inflammatory bowel disease, renal colic, PUD, biliary pathology, pancreatitis, mesenteric ischemia, aortic pathology, infections, genitourinary, UTI, perforated viscus, as well as others were entertained. ER treatment provided: See below Diagnostics interpreted by me: ECG: EKG was obtained in the emergency department. My interpretation is sinus rhythm at 70 bpm. There was a first-degree AV block noted. There were no PVCs. There were minimal ST segment elevations noted in the anterior leads with T wave inversions in the high lateral leads. These changes do appear increased compared to a tracing from August 29, 2018. Cardiac Monitoring: An order was placed for continuous cardiac monitoring. The monitor shows a rate of 66 with sinus rhythm. Laboratory studies: As stated above and show below. Imaging studies: See below Consultation(s): 1150: [facility] group was notified about the patient. ED COURSE: Procedures: none PDMP:reviewed and no issues Critical Care: I have personally spent greater than 55 minutes of critical care time in the direct management of this patient. This includes bedside care, interpretation of diagnostic studies, and testing, discussion with consultants, patient, and family members, and other required patient management activities. This 55 minutes is in excess of all separately billable procedures. Past Med/Surg History Medical History Anemia CHRONIC; baseline ~ 11 Gout History of nephrolithiasis (Inactive) LBBB (left bundle branch block) CHRONIC Myocardial Infarction IPMI S/P RCA STENTS X 2 (2011) Osteoarthritis Sleep apnea CPAP + O2 2L HS Venous stasis dermatitis of both lower extremities Vitamin D deficiency (Chronic) Surgical History H/O cardiac catheterization 2006 @ [facility] and 03/21/2012 @ [facility] RCA STENTS X 2. H/O heart artery stent RCA STENTS X 2 03/21/2012 History of appendectomy History of cataract surgery BILATERAL History of cystoscopy CYSTO/STENT EXCHANGE 02/20/19 = MAC SEDATION AT [facility]. No complications per records. History of tonsillectomy Hx of prior ablation treatment RFA S/P RVOT VTACH (NO RECURRENCE SINCE 2015 ABLATION PER CARDIO) Family History Unknown Hypertension Other No family history of adverse response to anesthesia Social History Preferred Language: [place] Citizen Communication Ability: Effective Visual Impairment: No Limitations Hearing Ability: Normal Celery Cutter Required: No Beliefs That Will Affect Care: None marital status: / Current Living Situation: Family Current Living Situation Comment: lives with special needs daughter Feels Safe at Home: Yes Smoking Status: Unknown if ever smoked Hx Alcohol Use: No Hx Substance Use: No Childhood Exposure to Second-Hand Smoke: No Dental Care, Regularly: No Physical Activity Frequency: Does not Exercise Seatbelt Use: always Sunscreen Use: Yes Allergies Allergies Allergy/AdvReac Type Severity Reaction Status Date / Time sulfamethoxazole Allergy Intermediate felt like Verified 08/26/19 10:55 walking on eggs trimethoprim Allergy Intermediate felt like Verified 08/26/19 10:55 walking on eggs Bactrim Allergy Unknown felt like Verified 11/04/17 07:47 walking on eggs lisinopril Allergy Unknown UNSURE OF Verified 08/26/19 10:55 REACTION streptomycin Allergy Unknown UNSURE Verified 08/26/19 10:55 REACTION Home Meds Home Medications Medication Instructions Recorded Confirmed aspirin [Aspir-81] 81 mg PO QAM 12/24/17 08/26/19 magnesium 400 mg PO BID 06/07/18 08/26/19 clopidogrel 75 mg PO QAM 08/01/19 08/26/19 Previous Rx's Medication Instructions Recorded torsemide 10 mg tablet 10 mg PO BID #60 tab 01/26/19 miscellaneous medical supply #1 ea 04/12/19 carvedilol 25 mg tablet 25 mg PO BID #180 tab 04/24/19 isosorbide mononitrate 60 mg 60 mg PO QAM #90 tab 05/12/19 tablet,extended release 24 hr atorvastatin 80 mg tablet 80 mg PO QPM #90 tab 07/07/19 ergocalciferol (vitamin D2) 1,250 50,000 unit PO MONTHLY #3 cap 07/07/19 mcg (50,000 unit) capsule hydralazine 50 mg tablet 100 mg PO TID #560 tab 07/07/19 Results & Data (ED) Vital Signs Vital Signs - 24 hr 08/26/19 09:44 08/26/19 09:49 08/26/19 09:50 Temperature 36.6 C Temperature Source Oral Pulse Rate 71 70 69 Pulse Rate from SpO2 Sensor 70 70 Respiratory Rate 19 18 24 Respiratory Effort / Characteristics Spontaneous Short of Breath Respiratory Pattern Regular Blood Pressure 190/83 H 190/83 H Blood Pressure Mean 152 118 Pulse Oximetry 93 92 94 Oxygen Delivery Method Nasal Cannula Sepsis Recent Fever Within 48 Hours No Sepsis Action Taken by Nursing No Action Required 08/26/19 10:00 08/26/19 10:30 08/26/19 11:00 Temperature Temperature Source Pulse Rate 73 67 66 Pulse Rate from SpO2 Sensor 69 66 Respiratory Rate 25 H 16 20 Respiratory Effort / Characteristics Respiratory Pattern Blood Pressure 190/78 H 173/79 H Blood Pressure Mean 116 128 Pulse Oximetry 92 93 Oxygen Delivery Method Sepsis Recent Fever Within 48 Hours Sepsis Action Taken by Nursing 08/26/19 11:19 Temperature Temperature Source Pulse Rate 66 Pulse Rate from SpO2 Sensor 63 Respiratory Rate 16 Respiratory Effort / Characteristics Respiratory Pattern Blood Pressure 174/104 H Blood Pressure Mean 118 Pulse Oximetry 97 Oxygen Delivery Method Sepsis Recent Fever Within 48 Hours Sepsis Action Taken by Shelter Medications Current Medication List: was personally reviewed by me Laboratory Data Attestation: I reviewed the patient's lab results. Result diagrams: 08/26/19 09:56 08/26/19 09:56 Lab Results 08/26/19 08/26/19 08/26/19 Range/Units 09:56 09:56 09:56 WBC 8.43 (4.8-10.8) K/uL RBC 3.95 L (4.2-5.4) M/uL Hgb 11.7 L (12.0-16.0) g/dL Hct 38.3 (37-47) % MCV 97.0 (80-100) fL MCH 29.6 (25-34) pg MCHC 30.5 L (32-36) g/dL RDW Std Deviation 53.7 H (36.4-46.3) fL RDW Coeff of Nicolasa 15.0 H (11.5-14.5) % Plt Count 154 (130-400) K/uL MPV 11.8 H (7.4-10.4) fL Immature Gran % (Auto) 0.2 % Neut % (Auto) 78.5 % Lymph % (Auto) 17.0 % [place] % (Auto) 4.2 % Eos % (Auto) 0.0 % Baso % (Auto) 0.1 % Immature Gran # (Auto) 0.02 (0.00-0.02) K/uL Neut # (Auto) 6.62 H (1.4-6.5) K/uL Lymph # (Auto) 1.43 (1.2-3.4) K/uL [place] # (Auto) 0.35 (0.11-0.59) K/uL Eos # (Auto) 0.00 (0-0.5) K/uL Baso # (Auto) 0.01 (0-0.2) K/uL PT 11.6 (9.0-12.0) Seconds INR 1.1 (0.9-1.1) APTT 23.1 (21.0-31.0) Seconds PTT Ratio 0.8 Sodium 143 (136-145) mmol/L Potassium 4.8 (3.5-5.1) mmol/L Chloride 111 H (98-107) mmol/L Carbon Dioxide 26 (21-32) mmol/L Anion Gap 6.0 (3-11) BUN 89 H (7-18) mg/dl Creatinine 3.43 H (0.6-1.2) mg/dl Est Cr Clr Drug Dosing 14.4 ml/min Est GFR ( Amer) 13.5 Est GFR (Non-Af Amer) 11.6 BUN/Creatinine Ratio 25.8 H (10-20) Glucose 155 H (70-99) mg/dl Lactate (0.4-2.0) mmol/L Calcium 9.2 (8.5-10.1) mg/dl Total Bilirubin 0.8 (0.2-1) mg/dl AST 22 (15-37) U/L ALT 19 (12-78) U/L Alkaline Phosphatase 128 H (45-117) U/L Troponin I 2.880 H* (0-0.045) ng/ml Total Protein 7.8 (6.4-8.2) gm/dl Albumin 3.5 (3.4-5.0) gm/dl Globulin 4.3 H (2.5-4.0) gm/dl Albumin/Globulin Ratio 0.8 L (0.9-2) Lipase 145 (73-393) U/L /09/08 Range/Units 10:05 WBC (4.8-10.8) K/uL RBC (4.2-5.4) M/uL Hgb (12.0-16.0) g/dL Hct (37-47) % MCV (80-100) fL MCH (25-34) pg MCHC (32-36) g/dL RDW Std Deviation (36.4-46.3) fL RDW Coeff of Nicolasa (11.5-14.5) % Plt Count (130-400) K/uL MPV (7.4-10.4) fL Immature Gran % (Auto) % Neut % (Auto) % Lymph % (Auto) % [place] % (Auto) % Eos % (Auto) % Baso % (Auto) % Immature Gran # (Auto) (0.00-0.02) K/uL Neut # (Auto) (1.4-6.5) K/uL Lymph # (Auto) (1.2-3.4) K/uL [place] # (Auto) (0.11-0.59) K/uL Eos # (Auto) (0-0.5) K/uL Baso # (Auto) (0-0.2) K/uL PT (9.0-12.0) Seconds INR (0.9-1.1) APTT (21.0-31.0) Seconds PTT Ratio Sodium (136-145) mmol/L Potassium (3.5-5.1) mmol/L Chloride (98-107) mmol/L Carbon Dioxide (21-32) mmol/L Anion Gap (3-11) BUN (7-18) mg/dl Creatinine (0.6-1.2) mg/dl Est Cr Clr Drug Dosing ml/min Est GFR ( Amer) Est GFR (Non-Af Amer) BUN/Creatinine Ratio (10-20) Glucose (70-99) mg/dl Lactate 1.0 (0.4-2.0) mmol/L Calcium (8.5-10.1) mg/dl Total Bilirubin (0.2-1) mg/dl AST (15-37) U/L ALT (12-78) U/L Alkaline Phosphatase (45-117) U/L Troponin I (0-0.045) ng/ml Total Protein (6.4-8.2) gm/dl Albumin (3.4-5.0) gm/dl Globulin (2.5-4.0) gm/dl Albumin/Globulin Ratio (0.9-2) Lipase (73-393) U/L Administered Medications Discontinued Medications Promethazine HCl (Phenergan) 6.25 mg in 50.25 mls @ 201 mls/hr IV NOW STA Stop: 08/26/19 10:10 Last Infusion: 08/26/19 11:25 Dose: 0 mls/hr Documented by: [id number] Admin: 08/26/19 10:08 Dose: 201 mls/hr Documented by: [id number] Imaging Data Radiologist's Impression: CT SCAN OF THE ABDOMEN AND PELVIS WITHOUT IV CONTRAST CLINICAL HISTORY: Vomiting. COMPARISON STUDY: Abdominal CT dated 08/21/2015. Abdominal MRI dated 03/28/2018. TECHNIQUE: CT scan of the abdomen and pelvis is performed from the lung bases to the proximal femora. Images are reviewed in the axial, sagittal, and coronal planes. IV contrast was not administered for this examination. Note that the examination was performed in suboptimal fashion without oral and IV contrast. The Examination is degraded by motion artifact. A dose lowering technique was utilized adhering to the principles of ALARA. CT DOSE: 1199.21 mGy.cm FINDINGS: Lung bases: The heart is enlarged and without pericardial effusion. The coronary arteries are densely calcified. There is diminished attenuation of the cardiac blood pool as compared to the myocardium suggesting anemia. There are small to moderate right and small left pleural effusions with associated atelectasis. Intralobular septal thickening is noted at the lung bases and suggests congestive failure. A tiny hiatal hernia is noted. Liver: The unenhanced liver is normal in size, contour, and attenuation. There is no intrahepatic biliary ductal dilatation. Gallbladder: Unremarkable. Spleen: Normal in size and attenuation. Pancreas: The unenhanced pancreas is atrophic . Subcentimeter cystic foci are suggested in the pancreatic head and likely represent small sidebranch IPMN's. This is of doubtful significance. Adrenal glands: Unremarkable. Kidneys: The unenhanced kidneys are atrophic and without hydronephrosis. A left ureteral stent is in place. No calcifications are identified along the course of the stent. Foci of cortical scarring are noted in both kidneys. There are least 3 small nonobstructing right renal calculi which measure up to 3 mm. No left renal calculi are clearly seen. Complex renal lesions are again seen bilaterally and measure up to 4.1 cm. These were better assessed on the recent abdominal MRI. Abdominal vasculature: The abdominal aorta is normal in course and caliber noting advanced atherosclerotic calcification. Bowel: No bowel obstruction is identified. The cecum is located in the right upper quadrant. There is moderate colonic diverticulosis without CT evidence of acute diverticulitis. Fecal retention is noted in the right colon. The appendix is not identified and reported surgically absent. Peritoneum: Trace perihepatic ascites is noted. No intraperitoneal free air is seen. There is a large fat-containing umbilical hernia. Postoperative change is seen in the right lower quadrant abdominal wall. Lymphadenopathy: None. Pelvic viscera: The bladder is normal as visualized and contains and of a left ureteral stent. The endometrium appears thickened for age measuring up to 1.5 cm. An exophytic uterine fibroid is again seen on the right, not significantly changed from 2016. Skeletal structures: The skeletal structures are osteopenic. No lytic or blastic lesions are seen. Soft tissues: There is body wall edema. IMPRESSION: 1. Motion compromised examination. The examination is also suboptimal without oral and IV contrast. 2. No acute infectious or inflammatory findings are identified in the abdomen or pelvis. 3. Cardiomegaly with evidence of congestive failure and bilateral pleural effusions. 4. No bowel obstruction is identified. 5. Moderate colonic diverticulosis without CT evidence of acute diverticulitis. 6. A left ureteral stent is in place. There is no left-sided hydronephrosis, and no calcifications are seen along the course of the stent. 7. Small nonobstructing right renal calculi. 8. The endometrium is not well assessed by CT but appears thickened for age. Nonemergent pelvic ultrasound and gynecology follow-up is recommended for further assessment. 9. There is trace perinephric ascites. 10. Complex bilateral renal lesions are similar to prior studies and were better assessed on the 03/28/2018 abdominal MRI. 11. Additional findings as above. ACT 112: Negative or not required by law. Electronically signed by: Ervin Cat M.D. 08/26/2019 11:30 AM Dictated: 08/26/19 1115 Transcribed: 08/26/19 1115 SINGLE VIEW CHEST CLINICAL HISTORY: Vomiting. FINDINGS: An AP, portable, upright chest radiograph is compared to study dated 08/29/2018. The examination is degraded by portable technique and patient rotation. The heart is enlarged noting atherosclerotic calcification of the thoracic aorta. There is pulmonary vascular congestion with evidence of interstitial edema. There are small pleural effusions with bibasilar atelectasis. No pneumothorax is seen. The skeletal structures are osteopenic. The bony thorax is grossly intact. Degenerative change is noted in the shoulders and thoracic spine. IMPRESSION: 1. Cardiomegaly with evidence of congestive failure and interstitial edema. 2. Small pleural effusions. 3. Correlate clinically for evidence of superimposed pneumonia/aspiration pneumonitis. ACT 112: Negative or not required by law. Electronically signed by: Ervin Cat M.D. 08/26/2019 10:34 AM Dictated: 08/26/19 1032 Transcribed: 08/26/19 1032 KUB CLINICAL HISTORY: Vomiting. FINDINGS: An AP, portable, supine abdominal radiograph is correlated with abdominal CT dated 08/21/2015. A left ureteral stent is in place. No calcifications are identified along the course of the stent. No calcifications are seen projecting over either kidney. There are numerous pelvic phleboliths. There is advanced atherosclerotic calcification of the abdominal aorta. There is a nonspecific distended and gas-filled loop of bowel in the midabdomen. Mild mucosal thickening is suggested. There is no evidence of high-grade obstruction. Gas is seen within the cecum in the right lower quadrant. The skeletal structures are osteopenic and appear intact. Lumbosacral spondylosis is o bserved. The heart is enlarged. Small pleural effusions are noted. IMPRESSION: 1. A left ureteral stent is in place. No calcifications are seen along the course of the stent. 2. There is a nonspecific distended loop of bowel in the midabdomen. Mild wall thickening is suggested, with no clear evidence of high-grade obstruction. Clinical correlation will be required. Electronically signed by: Ervin Cat M.D. 08/26/2019 10:31 AM Dictated: 08/26/19 1028 Transcribed: 08/26/19 1028 Blood Pressure Blood Pressure Findings: Elevated blood pressure Discharge Plan Visit Data Chief Complaint: Vomiting Stated Complaint: abd pain ED Provider: Nick Bruner Discharge Problem: Pulmonary edema, Hypoxia, Non-ST elevation MA (NSTEMI), Nausea & vomiting Patient Disposition: Being Evaluated by Hospitalist Condition: Fair Forms Stand Alone Forms: [facility], Virtual Emergency Department, Important Visit Information Prescriptions Prescriptions: No Action carvedilol 25 mg tablet 25 mg PO BID Qty: 180 RF: 3 isosorbide mononitrate 60 mg tablet extended release 24 hr 60 mg PO QAM Qty: 90 RF: 3 atorvastatin 80 mg tablet 80 mg PO QPM Qty: 90 RF: 3 ergocalciferol (vitamin D2) 1,250 mcg (50,000 unit) capsule 50,000 unit PO MONTHLY Qty: 3 RF: 1 hydralazine 50 mg tablet 100 mg PO TID Qty: 560 RF: 3 (DME) CPAP Supplies Misc See Rx Instructions .ROUTE .MEDSUPPLY Qty: 1 RF: 0 torsemide 10 mg tablet 10 mg PO BID Qty: 60 RF: 5 aspirin [Aspir-81] 81 mg Tablet,Delayed Release (Dr/Ec) 81 mg PO QAM RF: 0 clopidogrel 75 mg tablet 75 mg PO QAM RF: 0 magnesium 200 mg Tablet 400 mg PO BID RF: 0 Referrals Referrals: Bhavin Prince DO [Primary Care Provider] - Discharge Problem: Pulmonary edema Qualifiers: Chronicity: acute Qualified Code(s): J81.0 - Acute pulmonary edema Nausea & vomiting Qualifiers: Vomiting type: unspecified Vomiting Intractability: non-intractable Qualified Code(s): R11.2 - Nausea with vomiting, unspecified
[2019-08-26 10:19] LABS: INR 1.1 (0.9-1.1); Partial Thromboplastin Ratio 0.8; Partial Thromboplastin Time 23.1 Seconds (21.0-31.0); Prothrombin Time 11.6 Seconds (9.0-12.0)
[2019-08-26 10:25] LABS: Albumin Level 3.5 gm/dl (3.4-5.0); BUN Creatinine Ratio 25.8 (10-20); Calcium 9.2 mg/dl (8.5-10.1); Creatinine Clr Calc Pharmacy 14.4 ml/min; Est GFR (African American) 13.5; Est GFR (Non-African American) 11.6; Potassium 4.8 mmol/L (3.5-5.1)
--- NOTE | 2019-08-26 10:33 | XRay Report ---
KUB CLINICAL HISTORY: Vomiting. FINDINGS: An AP, portable, supine abdominal radiograph is correlated with abdominal CT dated 08/21/2015 . A left ureteral stent is in place. No calcifications are identified along the course of the stent. No calcifications are seen projecting over either kidney. There are numerous pelvic phleboliths. Ther e is advanced atherosclerotic calcification of the abdominal aorta. There is a nonspecific distended and gas-filled loop of bowel in the midabdomen. Mild mucosal thickening is suggested. There is no shanda dence of high-grade obstruction. Gas is seen within the cecum in the right lower quadrant. The skelet al structures are osteopenic and appear intact. Lumbosacral spondylosis is observed. The heart is enl arged. Small pleural effusions are noted. IMPRESSION: 1. A left ureteral stent is in place. No calcifications are seen along the course of the stent. 2. There is a nonspecific distended loop of bowel in the midabdomen. Mild wall thickening is suggeste d, with no clear evidence of high-grade obstruction. Clinical correlation will be required. Electronically signed by: Ervin Cat M.D. 08/26/2019 10:31 AM
--- NOTE | 2019-08-26 10:35 | XRay Report ---
SINGLE VIEW CHEST CLINICAL HISTORY: Vomiting. FINDINGS: An AP, portable, upright chest radiograph is compared to study dated 08/29/2018. The examina tion is degraded by portable technique and patient rotation. The heart is enlarged noting atheroscler otic calcification of the thoracic aorta. There is pulmonary vascular congestion with evidence of int erstitial edema. There are small pleural effusions with bibasilar atelectasis. No pneumothorax is see n. The skeletal structures are osteopenic. The bony thorax is grossly intact. Degenerative change is noted in the shoulders and thoracic spine. IMPRESSION: 1. Cardiomegaly with evidence of congestive failure and interstitial edema. 2. Small pleural effusions. 3. Correlate clinically for evidence of superimposed pneumonia/aspiration pneumonitis. ACT 112: Negative or not required by law. Electronically signed by: Erivn Cat M.D. 08/26/2019 10:34 AM
[2019-08-26 10:58] LABS: Albumin Globulin Ratio 0.8 (0.9-2); Bilirubin,Total 0.8 mg/dl (0.2-1); Globulin 4.3 gm/dl (2.5-4.0); Total Protein 7.8 gm/dl (6.4-8.2); Troponin I 2.88 ng/ml (0-0.045)
--- NOTE | 2019-08-26 11:31 | CT Scan Report ---
CT SCAN OF THE ABDOMEN AND PELVIS WITHOUT IV CONTRAST CLINICAL HISTORY: Vomiting. COMPARISON STUDY: Abdominal CT dated 08/21/2015. Abdominal MRI dated 03/28/2018. TECHNIQUE: CT scan of the abdomen and pelvis is performed from the lung bases to the proximal femora. Images are reviewed in the axial, sagittal, and coronal planes. IV contrast was not administered for this examination. Note that the examination was performed in suboptimal fashion without oral and IV contrast. The Examination is degraded by motion artifact. A dose lowering technique was utilized adhe ring to the principles of ALARA. CT DOSE: 1199.21 mGy.cm FINDINGS: Lung bases: The heart is enlarged and without pericardial effusion. The coronary arteries are densely calcified. There is diminished attenuation of the cardiac blood pool as compared to the myocardium s uggesting anemia. There are small to moderate right and small left pleural effusions with associated atelectasis. Intralobular septal thickening is noted at the lung bases and suggests congestive failur e. A tiny hiatal hernia is noted. Liver: The unenhanced liver is normal in size, contour, and attenuation. There is no intrahepatic driss iary ductal dilatation. Gallbladder: Unremarkable. Spleen: Normal in size and attenuation. Pancreas: The unenhanced pancreas is atrophic . Subcentimeter cystic foci are suggested in the pancre atic head and likely represent small sidebranch IPMN's. This is of doubtful significance. Adrenal glands: Unremarkable. Kidneys: The unenhanced kidneys are atrophic and without hydronephrosis. A left ureteral stent is in place. No calcifications are identified along the course of the stent. Foci of cortical scarring are noted in both kidneys. There are least 3 small nonobstructing right renal calculi which measure up to 3 mm. No left renal calculi are clearly seen. Complex renal lesions are again seen bilaterally and m easure up to 4.1 cm. These were better assessed on the recent abdominal MRI. Abdominal vasculature: The abdominal aorta is normal in course and caliber noting advanced atheroscle rotic calcification. Bowel: No bowel obstruction is identified. The cecum is located in the right upper quadrant. There is moderate colonic diverticulosis without CT evidence of acute diverticulitis. Fecal retention is note d in the right colon. The appendix is not identified and reported surgically absent. Peritoneum: Trace perihepatic ascites is noted. No intraperitoneal free air is seen. There is a large fat-containing umbilical hernia. Postoperative change is seen in the right lower quadrant abdominal wall. Lymphadenopathy: None. Pelvic viscera: The bladder is normal as visualized and contains and of a left ureteral stent. The en dometrium appears thickened for age measuring up to 1.5 cm. An exophytic uterine fibroid is again see n on the right, not significantly changed from 2016. Skeletal structures: The skeletal structures are osteopenic. No lytic or blastic lesions are seen. Soft tissues: There is body wall edema. IMPRESSION: 1. Motion compromised examination. The examination is also suboptimal without oral and IV contrast. 2. No acute infectious or inflammatory findings are identified in the abdomen or pelvis. 3. Cardiomegaly with evidence of congestive failure and bilateral pleural effusions. 4. No bowel obstruction is identified. 5. Moderate colonic diverticulosis without CT evidence of acute diverticulitis. 6. A left ureteral stent is in place. There is no left-sided hydronephrosis, and no calcifications ar e seen along the course of the stent. 7. Small nonobstructing right renal calculi. 8. The endometrium is not well assessed by CT but appears thickened for age. Nonemergent pelvic ultra sound and gynecology follow-up is recommended for further assessment. 9. There is trace perinephric ascites. 10. Complex bilateral renal lesions are similar to prior studies and were better assessed on the 2018 abdominal MRI. 11. Additional findings as above. ACT 112: Negative or not required by law. Electronically signed by: Ervin Cat M.D. 08/26/2019 11:30 AM
[2019-08-26] MEDS ORDERED: Heparin IV Low Dose *NO* Bolus IV ONE (11:50)
[2019-08-26] MEDS ORDERED: HEPARIN SODIUM/DEXTROSE 25,000 UNITS/500 ML BAG IV SCH (12:00)
[2019-08-26] MEDS ORDERED: AMPICILLIN/SULBACTAM SOD 3,000 MG in 0.9 % SODIUM CHLORIDE 100 ML IV SCH (13:00)
--- NOTE | 2019-08-26 13:00 | History & Physical Report ---
Date of Service August 26, 2019 Assessment & Plan (1) Nausea & vomiting: Presented with nausea/vomiting that came shortly after eating a salad for lunch. No fevers/chills/sweats and is afebrile here. No leukocytosis here, LFTs are normal, lipase normal. CT of the abdomen/pelvis without contrast does not show any evidence of colitis, diverticulitis, or obstruction. She did have associated periumbilical pain at the site of her hernia when it first started. Question if had a partial small bowel obstruction at that time which is now resolved. Abdominal pain completely resolved and hernia is reducible. Lactate is negative. Nausea is now improved with Phenergan in the ER. Perhaps could be atypical presentation of acute coronary syndrome given elevated troponin, although seems that that is more likely myocardial demand ischemia. Most likely either viral gastroenteritis or resolved partial small bowel obstruction/ileus -Admit to PCU -Keep n.p.o. for now but advance to clears as tolerated later if improving -Continue IV Phenergan as needed -No IV fluids at this time as she is volume overloaded -Observe for improvement (2) Abdominal pain: -As above, likely secondary to umbilical hernia possibly with partial small bowel obstruction while vomiting -All symptoms now resolved, hernia is reducible on examination -Follow clinically (3) Aspiration pneumonitis: Likely had an aspiration event during vomiting With some scant hemoptysis later in the day yesterday With new hypoxia and chest x-ray appears to be pulmonary edema plus possible aspiration pneumonitis -Continue supplemental O2 and wean off as tolerated -Start Unasyn renally dosed -Follow clinically, follow chest x-ray periodically (4) Hypoxia: With acute on chronic respiratory failure with hypoxia Normally uses 2 L of oxygen with her CPAP at nighttime Requiring O2 here in the ER at rest on admission, likely secondary to aspiration pneumonitis and pulmonary edema -We will restart home torsemide which she normally takes only once a day 4 times a week rather than the twice daily as prescribed -Ruling out for [place] -Treating for aspiration pneumonitis -We will add on duo nebs scheduled given the wheezing (5) Non-ST elevation [place] (NSTEMI): Troponin 2.88 on admission, likely myocardial demand ischemia and less likely ACS given the hypoxia, recent nausea/vomiting With known underlying CAD, status post TOYA to the RCA x2 ECG with LBBB -Continue home aspirin, Plavix, atorvastatin, carvedilol, isosorbide, hydralazine if can tolerate p.o. -Trend serial troponin -Started on heparin drip in the ER-we will discontinue as long as troponin remains less than 5 as per cardiology recommendation -Appreciate cardiology consultation -If troponin trends upwards of 5 or more serially, will continue heparin drip for 48 hours -Would not be a good candidate for cardiac catheterization given severe kidney disease -To be medically managed (6) Pulmonary edema: Some component of acute on chronic diastolic CHF, but also with aspiration pneumonitis, has small bilateral pleural effusions Her weight is not up significantly from previous, but she has JVD, significant lower extremity edema -Only takes torsemide once a day about 4 times a week rather than the twice daily as prescribed -Make torsemide 10 mg p.o. twice daily scheduled and consider IV diuretics as needed, cautious with renal function -Appreciate cardiology consultation -Nephrology also consulted -Follow daily weights, strict I's and O's, low-sodium diet once tolerating p.o. (7) Chronic kidney disease, stage IV (severe): Baseline creatinine used to be 2.3-2.5, but in the last month has gone up to 3.4-3.6 This did not change despite changing out her left ureteral stent 2 weeks ago with urology There is no hydronephrosis or blockage on CT abdomen/pelvis here today -Consult nephrology -Holding IV fluids and giving p.o. torsemide as above --Avoid nephrotoxins -renally dose meds when appropriate -follow BMP -Follow urine output (8) Hyperlipidemia: Continue statin (9) Hypertension: Continue home meds of carvedilol, isosorbide, hydralazine, torsemide if can tolerate p.o. -If cannot tolerate p.o., would give IV hydralazine and IV Lopressor (10) CAD (coronary artery disease), apache coronary artery: As noted above (11) Pulmonary HTN: Noted -Remains on diuretics and O2 at night (12) CHF (congestive heart failure): With acute on chronic diastolic CHF as above (13) Vitamin D deficiency: Hold home vitamin D (14) Sleep apnea: -We will order CPAP at 3 cm H2O with 2 L oxygen connected at bedtime (15) Chronic respiratory failure with hypoxia: As above (16) LBBB (left bundle branch block): Chronic (17) Gout: No acute flare (18) Venous stasis dermatitis of both lower extremities: -Making torsemide 10 mg p.o. twice daily scheduled as above (19) Renal cyst: Followed by urology, complex bilateral renal cysts With left ureteral stent (20) Lone atrial fibrillation: Many years ago, thought to be due to hypomagnesemia Monitor on telemetry (21) History of ventricular tachycardia: No recurrence since RVOT ablation Monitor on telemetry (22) Umbilical hernia: As above, is reducible (23) Thickened endometrium: Incidentally noted to be thickened on CT scan -Needs outpatient pelvic ultrasound and gynecology follow-up if desired (24) Anemia: Likely secondary to chronic kidney disease Hemoglobin fairly stable here 11.7 -Follow CBC in the morning (25) DVT prophylaxis: Heparin drip Disposition-admit to PCU, expected least a 2 midnight stay DNR/DNI as per his discussion with patient History of Present Illness Chief Complaint: Nausea/vomiting Primary Care Provider: Bhavin Prince, This patient is an 84-year-old female with a history of CAD status post TOYA to the RCA, LBBB, HTN, CKD stage IV with indwelling left ureteral stent, right- sided heart failure, chronic diastolic CHF, lone atrial fibrillation, VT status post ablation, GURPREET on CPAP and nocturnal O2, chronic lower extremity edema/venous stasis, gout, anemia, complex renal cysts, OA, and vitamin D deficiency, who presents to the ER with over 12 hours of persistent nausea and vomiting with periumbilical abdominal pain. She reports eating about half of her tossed salad for lunch yesterday, and then almost immediately began vomiting after that x2. She had persistent nausea since 2 PM yesterday and has not eaten or drank anything since that time. She was able to take her evening pills yesterday, but did not take her torsemide. She also had 2 loose stools yesterday. Neither her vomit nor her stools were bloody or black. The periumbilical pain was around where her hernia is, but that has since completely resolved. She started having shortness of breath shortly after she vomited and it became much worse today. She reports she did cough up some sputum that had red blood in it x2 last evening. In the ER, she was found to be hypoxic and was placed on oxygen with improvement in her oxygenation and dyspnea. Her creatinine is around its new baseline of 3.4, a lactate was negative. Her LFTs were normal except for mild elevation of alkaline phosphatase. Her troponin was elevated at 2.88. Her chest x-ray seems consistent with pulmonary edema, and a CT scan without contrast of the abdomen/pelvis was negative for obstruction, colitis, or diverticulitis. Her umbilical hernia is completely reducible on examination. She also was incidentally noted to have a thickened endometrium, as well as small bilateral pleural effusions. She denies any fevers/sweats/chills and no recent sick contacts. She has been isolating herself in her house for several months with the COVID pandemic. She has not gone out and her family brings her groceries. She lives with her daught er who is also retired and does not go out. She denies any chest pain, no lightheadedness, no headaches or sore throat. She was started on a heparin drip in the ER in case of acute coronary syndrome, and was given IV Phenergan with good result and resolution of nausea. Allergies Allergy/AdvReac Type Severity Reaction Status Date / Time sulfamethoxazole Allergy Intermediate felt like Verified 08/26/19 10:55 walking on eggs trimethoprim Allergy Intermediate felt like Verified 08/26/19 10:55 walking on eggs Bactrim Allergy Unknown felt like Verified 11/04/17 07:47 walking on eggs lisinopril Allergy Unknown UNSURE OF Verified 08/26/19 10:55 REACTION streptomycin Allergy Unknown UNSURE Verified 08/26/19 10:55 REACTION Home Medications Home Medications Medication Instructions Recorded Confirmed Type aspirin [Aspir-81] 81 mg PO QAM 12/24/17 08/26/19 History magnesium 400 mg PO BID 06/07/18 08/26/19 History torsemide 10 mg tablet 10 mg PO BID #60 tab 01/26/19 08/26/19 Rx miscellaneous medical supply #1 ea 04/12/19 08/18/19 Rx carvedilol 25 mg tablet 25 mg PO BID #180 tab 04/24/19 08/26/19 Rx isosorbide mononitrate 60 mg 60 mg PO QAM #90 tab 05/12/19 08/26/19 Rx tablet,extended release 24 hr atorvastatin 80 mg tablet 80 mg PO QPM #90 tab 07/07/19 08/26/19 Rx ergocalciferol (vitamin D2) 1,250 50,000 unit PO MONTHLY #3 cap 07/07/19 08/26/19 Rx mcg (50,000 unit) capsule hydralazine 50 mg tablet 100 mg PO TID #560 tab 07/07/19 08/26/19 Rx clopidogrel 75 mg PO QAM 08/01/19 08/26/19 History Past Med/Surg History Medical History Anemia CHRONIC; baseline ~ 11 Chronic respiratory failure with hypoxia Gout History of nephrolithiasis (Inactive) History of ventricular tachycardia LBBB (left bundle branch block) CHRONIC Lone atrial fibrillation Myocardial Infarction IPMI S/P RCA STENTS X 2 (2011) Osteoarthritis Renal cyst Sleep apnea CPAP + O2 2L HS Venous stasis dermatitis of both lower extremities Vitamin D deficiency (Chronic) Surgical History H/O cardiac catheterization 2006 @ [facility] and 03/21/2012 @ [facility] RCA STENTS X 2. H/O heart artery stent RCA STENTS X 2 03/21/2012 History of appendectomy History of cataract surgery BILATERAL History of cystoscopy CYSTO/STENT EXCHANGE 02/20/19 = MAC SEDATION AT [facility]. No complications per records. History of tonsillectomy Hx of prior ablation treatment RFA S/P RVOT VTACH (NO RECURRENCE SINCE 2014 ABLATION PER CARDIO) Family History Unknown Hypertension Other No family history of adverse response to anesthesia Social History Preferred Language: Sudanese Communication Ability: Effective Visual Impairment: No Limitations Hearing Ability: Normal Search Manager Required: No Beliefs That Will Affect Care: None marital status: / Current Living Situation: Family Current Living Situation Comment: lives with special needs daughter Feels Safe at Home: Yes Smoking Status: Never smoker Second Hand Exposure: No ; Hx Alcohol Use: No Hx Substance Use: No Childhood Exposure to Second-Hand Smoke: No Dental Care, Regularly: No Physical Activity Frequency: Does not Exercise Seatbelt Use: always Sunscreen Use: Yes Review of Systems Review of Systems: All systems reviewed & are unremarkable except as noted in HPI & below Physical Exam Constitutional: WD/WN, vitals as above + obese Eyes: PERRL, conjunctivae normal, anicteric sclerae ENMT: Ears: no hearing impairment and no external ear abnormality Nose: no external nose abnormality and no nasal discharge Mouth: no oral mucosal abnormality Neck: trachea midline, no thyromegaly Respiratory: normal respiratory effort Auscultation: + crackles (At the lower and middle lung musa bilaterally) and + wheezes (Expiratory wheezes bilaterally in upper and lower lung musa); no rhonchi Cardiovascular: Rate/Rhythm: regular rate and regular rhythm Heart Sounds: + murmur (2/6 systolic at the lower left sternal border) Vessels: + JVD Extremities: + edema (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) Chest (Breasts): Chest: normal inspection of chest Gastrointestinal (Abdomen): Inspection/Auscultation: normal bowel sounds; + abdomen abnormal to inspection (Surgical scars noted) Percussion/Palpation: abdomen soft and + hernia (Umbilical hernia of moderate size which is easily reducible); abdomen nontender, no guarding and abdomen not rigid Musculoskeletal: Extremities: no cyanosis and no clubbing Skin: no rashes, warm and dry (Chronic venous stasis and ichthyosis of the bilateral lower extremities, toenails with onychomycosis ) Neurologic: moves all extremities and awake; no focal motor deficits Psychiatric: A+Ox3, euthymic affect Lymphatic: no lymphedema Results & Data Results & Data ([facility]) Vital Signs (Past 12 Hours) Vital Signs Temp Pulse Resp BP Pulse Ox 08/26/19 12:30 62 19 169/73 H 98 08/26/19 12:00 58 L 12 175/78 H 99 08/26/19 11:30 59 L 13 164/62 H 98 08/26/19 11:19 66 16 174/104 H 97 08/26/19 11:00 66 20 08/26/19 10:30 67 16 173/79 H 93 08/26/19 10:00 73 25 H 190/78 H 92 08/26/19 09:50 36.6 C 69 24 190/83 H 94 08/26/19 09:49 70 18 92 08/26/19 09:44 71 19 190/83 H 93 Laboratory Results 08/26/19 08/26/19 08/26/19 Range/Units 10:05 09:56 09:56 WBC (4.8-10.8) K/uL RBC (4.2-5.4) M/uL Hgb (12.0-16.0) g/dL Hct (37-47) % MCV (80-100) fL MCH (25-34) pg MCHC (32-36) g/dL RDW Std Deviation (36.4-46.3) fL RDW Coeff of Nicolasa (11.5-14.5) % Plt Count (130-400) K/uL MPV (7.4-10.4) fL Immature Gran % (Auto) % Neut % (Auto) % Lymph % (Auto) % Bates % (Auto) % Eos % (Auto) % Baso % (Auto) % Immature Gran # (Auto) (0.00-0.02) K/uL Neut # (Auto) (1.4-6.5) K/uL Lymph # (Auto) (1.2-3.4) K/uL Bates # (Auto) (0.11-0.59) K/uL Eos # (Auto) (0-0.5) K/uL Baso # (Auto) (0-0.2) K/uL PT 11.6 (9.0-12.0) Seconds INR 1.1 (0.9-1.1) APTT 23.1 (21.0-31.0) Seconds PTT Ratio 0.8 Sodium 143 (136-145) mmol/L Potassium 4.8 (3.5-5.1) mmol/L Chloride 111 H (98-107) mmol/L Carbon Dioxide 26 (21-32) mmol/L Anion Gap 6.0 (3-11) BUN 89 H (7-18) mg/dl Creatinine 3.43 H (0.6-1.2) mg/dl Est Cr Clr Drug Dosing 14.4 ml/min Est GFR ( Amer) 13.5 Est GFR (Non-Af Amer) 11.6 BUN/Creatinine Ratio 25.8 H (10-20) Glucose 155 H (70-99) mg/dl Lactate 1.0 (0.4-2.0) mmol/L Calcium 9.2 (8.5-10.1) mg/dl Total Bilirubin 0.8 (0.2-1) mg/dl AST 22 (15-37) U/L ALT 19 (12-78) U/L Alkaline Phosphatase 128 H (45-117) U/L Troponin I 2.880 H* (0-0.045) ng/ml Total Protein 7.8 (6.4-8.2) gm/dl Albumin 3.5 (3.4-5.0) gm/dl Globulin 4.3 H (2.5-4.0) gm/dl Albumin/Globulin Ratio 0.8 L (0.9-2) Lipase 145 (73-393) U/L 08/26/19 Range/Units 09:56 WBC 8.43 (4.8-10.8) K/uL RBC 3.95 L (4.2-5.4) M/uL Hgb 11.7 L (12.0-16.0) g/dL Hct 38.3 (37-47) % MCV 97.0 (80-100) fL MCH 29.6 (25-34) pg MCHC 30.5 L (32-36) g/dL RDW Std Deviation 53.7 H (36.4-46.3) fL RDW Coeff of Nicolasa 15.0 H (11.5-14.5) % Plt Count 154 (130-400) K/uL MPV 11.8 H (7.4-10.4) fL Immature Gran % (Auto) 0.2 % Neut % (Auto) 78.5 % Lymph % (Auto) 17.0 % Bates % (Auto) 4.2 % Eos % (Auto) 0.0 % Baso % (Auto) 0.1 % Immature Gran # (Auto) 0.02 (0.00-0.02) K/uL Neut # (Auto) 6.62 H (1.4-6.5) K/uL Lymph # (Auto) 1.43 (1.2-3.4) K/uL Bates # (Auto) 0.35 (0.11-0.59) K/uL Eos # (Auto) 0.00 (0-0.5) K/uL Baso # (Auto) 0.01 (0-0.2) K/uL PT (9.0-12.0) Seconds INR (0.9-1.1) APTT (21.0-31.0) Seconds PTT Ratio Sodium (136-145) mmol/L Potassium (3.5-5.1) mmol/L Chloride (98-107) mmol/L Carbon Dioxide (21-32) mmol/L Anion Gap (3-11) BUN (7-18) mg/dl Creatinine (0.6-1.2) mg/dl Est Cr Clr Drug Dosing ml/min Est GFR ( Amer) Est GFR (Non-Af Amer) BUN/Creatinine Ratio (10-20) Glucose (70-99) mg/dl Lactate (0.4-2.0) mmol/L Calcium (8.5-10.1) mg/dl Total Bilirubin (0.2-1) mg/dl AST (15-37) U/L ALT (12-78) U/L Alkaline Phosphatase (45-117) U/L Troponin I (0-0.045) ng/ml Total Protein (6.4-8.2) gm/dl Albumin (3.4-5.0) gm/dl Globulin (2.5-4.0) gm/dl Albumin/Globulin Ratio (0.9-2) Lipase (73-393) U/L Diagnostic Findings Chest x-ray image personally reviewed by me and agree with the following report: SINGLE VIEW CHEST CLINICAL HISTORY: Vomiting. FINDINGS: An AP, portable, upright chest radiograph is compared to study dated 08/29/2018. The examination is degraded by portable technique and patient rotation. The heart is enlarged noting atherosclerotic calcification of the thoracic aorta. There is pulmonary vascular congestion with evidence of interstitial edema. There are small pleural effusions with bibasilar atelectasis. No pneumothorax is seen. The skeletal structures are osteopenic. The bony thorax is grossly intact. Degenerative change is noted in the shoulders and thoracic spine. IMPRESSION: 1. Cardiomegaly with evidence of congestive failure and interstitial edema. 2. Small pleural effusions. 3. Correlate clinically for evidence of superimposed pneumonia/aspiration pneumonitis. CT SCAN OF THE ABDOMEN AND PELVIS WITHOUT IV CONTRAST CLINICAL HISTORY: Vomiting. COMPARISON STUDY: Abdominal CT dated 08/21/2015. Abdominal MRI dated 03/28/2018. TECHNIQUE: CT scan of the abdomen and pelvis is performed from the lung bases to the proximal femora. Images are reviewed in the axial, sagittal, and coronal planes. IV contrast was not administered for this examination. Note that the examination was performed in suboptimal fashion without oral and IV contrast. The Examination is degraded by motion artifact. A dose lowering technique was utilized adhering to the principles of ALARA. CT DOSE: 1199.21 mGy.cm FINDINGS: Lung bases: The heart is enlarged and without pericardial effusion. The coronary arteries are densely calcified. There is diminished attenuation of the cardiac blood pool as compared to the myocardium suggesting anemia. There are small to moderate right and small left pleural effusions with associated atelectasis. Intralobular septal thickening is noted at the lung bases and suggests congestive failure. A tiny hiatal hernia is noted. Liver: The unenhanced liver is normal in size, contour, and attenuation. There is no intrahepatic biliary ductal dilatation. Gallbladder: Unremarkable. Spleen: Normal in size and attenuation. Pancreas: The unenhanced pancreas is atrophic . Subcentimeter cystic foci are suggested in the pancreatic head and likely represent small sidebranch IPMN's. This is of doubtful significance. Adrenal glands: Unremarkable. Kidneys: The unenhanced kidneys are atrophic and without hydronephrosis. A left ureteral stent is in place. No calcifications are identified along the course of the stent. Foci of cortical scarring are noted in both kidneys. There are least 3 small nonobstructing right renal calculi which measure up to 3 mm. No left renal calculi are clearly seen. Complex renal lesions are again seen bilaterally and measure up to 4.1 cm. These were better assessed on the recent abdominal MRI. Abdominal vasculature: The abdominal aorta is normal in course and caliber noting advanced atherosclerotic calcification. Bowel: No bowel obstruction is identified. The cecum is located in the right upper quadrant. There is moderate colonic diverticulosis without CT evidence of acute diverticulitis. Fecal retention is noted in the right colon. The appendix is not identified and reported surgically absent. Peritoneum: Trace perihepatic ascites is noted. No intraperitoneal free air is seen. There is a large fat-containing umbilical hernia. Postoperative change is seen in the right lower quadrant abdominal wall. Lymphadenopathy: None. Pelvic viscera: The bladder is normal as visualized and contains and of a left ureteral stent. The endometrium appears thickened for age measuring up to 1.5 cm. An exophytic uterine fibroid is again seen on the right, not significantly changed from 2016. Skeletal structures: The skeletal structures are osteopenic. No lytic or blastic lesions are seen. Soft tissues: There is body wall edema. IMPRESSION: 1. Motion compromised examination. The examination is also suboptimal without oral and IV contrast. 2. No acute infectious or inflammatory findings are identified in the abdomen or pelvis. 3. Cardiomegaly with evidence of congestive failure and bilateral pleural effusions. 4. No bowel obstruction is identified. 5. Moderate colonic diverticulosis without CT evidence of acute diverticulitis. 6. A left ureteral stent is in place. There is no left-sided hydronephrosis, and no calcifications are seen along the course of the stent. 7. Small nonobstructing right renal calculi. 8. The endometrium is not well assessed by CT but appears thickened for age. Nonemergent pelvic ultrasound and gynecology follow-up is recommended for further assessment. 9. There is trace perinephric ascites. 10. Complex bilateral renal lesions are similar to prior studies and were better assessed on the 03/28/2018 abdominal MRI. 11. Additional findings as above. ECG Additional Comments: ECG with sinus rhythm, first-degree AV block, LBBB, unchanged from previous Code Status & VTE Plan Code Status DNR/DNI as per discussion with the patient VTE Prophylaxis Plan VTE Prophylaxis will be ordered: Yes PG Care Time/CCT Total # of Minutes Spent Total Time Spent with Patient: Total time spent is greater than 50% in coordination of care (as documented) at patient's floor/unit and/or counseling patient: Coding Level of Care Code 58482 Initial Inpt Care Lvl 3 Diagnoses Nausea & vomiting R11.2 Vomiting Intractability: non-intractable Vomiting type: unspecified Abdominal pain R10.9 Aspiration pneumonitis J69.0 Hypoxia R09.02 Non-ST elevation [place] (NSTEMI) I21.4 Pulmonary edema J81.0 Chronicity: acute Chronic kidney disease, stage IV (severe) N18.4 Hyperlipidemia E78.5 Hyperlipidemia type: unspecified Hypertension I10 CAD (coronary artery disease), apache coronary artery I25.10 Pulmonary HTN I27.20 CHF (congestive heart failure) I50.9 Heart failure chronicity: unspecified Heart failure type: unspecified Vitamin D deficiency E55.9 Sleep apnea G47.30 Chronic respiratory failure with hypoxia J96.11 LBBB (left bundle branch block) I44.7 Gout M10.9 Venous stasis dermatitis of both lower extremities I87.2 Renal cyst N28.1 Lone atrial fibrillation I48.91 History of ventricular tachycardia Z86.79 Umbilical hernia K42.9 Thickened endometrium R93.89 Anemia D64.9 DVT prophylaxis Z29.9 (1) CHF (congestive heart failure) Heart failure chronicity: unspecified Heart failure type: unspecified Qualified Code(s): I50.9 - Heart failure, unspecified (2) Hyperlipidemia Hyperlipidemia type: unspecified Qualified Code(s): E78.5 - Hyperlipidemia, unspecified (3) Pulmonary edema Chronicity: acute Qualified Code(s): J81.0 - Acute pulmonary edema (4) Nausea & vomiting Vomiting Intractability: non-intractable Vomiting type: unspecified Qualified Code(s): R11.2 - Nausea with vomiting, unspecified
--- NOTE | 2019-08-26 13:38 | Cardiology Consultation ---
Date of Consultation August 26, 2019 Assessment & Plan (1) Non-ST elevation [place] (NSTEMI): (2) CAD (coronary artery disease), [place] coronary artery: (3) Pulmonary HTN: (4) Chronic diastolic CHF (congestive heart failure): (5) Chronic respiratory failure with hypoxia: (6) Hypertension: (7) SOB (shortness of breath): (8) Lone atrial fibrillation: ASSESSMENT/PLAN: 1. NSTEMI: She did not present with any angina and symptoms do not appear to correlate with acute coronary syndrome. Therefore, unless troponin becomes significantly elevated, much higher than presentation, would discontinue heparin drip for this indication. Elevated troponin more likely due to underlying coronary artery disease in the setting of significant hypertension, and her acute illness in the setting of hypervolemia. Echo pending. 2. CAD s/p RCA PCI:: She had other residual CAD as well within the LAD, D1, D2, OM2, but today did not present with angina. Continue anti-platelet therapy with aspirin 81 mg daily. She is also on Plavix 75 mg daily. Continue beta- davey and high-intensity statin therapy. 3. Chronic diastolic CHF: She is not compliant with diuretic therapy as prescribed. She also admits that she enjoys her salt. She appears to be hypervolemic despite not eating much over the past 24 hours. Recommend at least resuming her home dose of torsemide and giving IV doses if necessary to promote diuresis. Would try to maintain a negative fluid balance of approximately 1 L throughout the rest of today. Low-sodium diet. Check daily weights. Strict I&Os. 4. Shortness of breath/acute on chronic respiratory failure with hypoxia: Concern for aspiration pneumonitis given her acute shortness of breath beginning after vomiting. Treatment as per primary service. She also appears to be intravascularly hypervolemic which is less likely acute. Diuresis as above. 5. Hypertension: Blood pressure elevated but she has not taken her medications for nearly 24 hours. Resume her home medications. 6. Pulmonary hypertension: Has a history of pulmonary hypertension. Repeat echo is pending. She does have sleep apnea as a possible etiology and also hypervolemia. 7. Atrial fibrillation: Has a history of atrial fibrillation which is described as a loan event due to electrolyte abnormalities in December of 2013. Because of this, she has not required anticoagulation therapy. 8. Nausea/vomiting/abdominal pain: As per primary hospitalist service. Fortunately, symptoms have improved. 9. Disposition: Cardiology will continue to follow. Trend troponin levels. Continuous telemetry. Echo pending. Patient care discussed with Dr. Jorgensen the primary hospitalist service. Thank you for allowing me to participate in the care of your patient. Please call for any other questions or concerns. Sincerely, Prakash Delnog M.D. History of Present Illness Requesting Physician: Dr. Jorgensen Attending Physician: Dr. Jorgensen History of Present Illness Mrs. 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 Alvarado) Her primary windows application administrator is Dr. Lopez. She has had the following studies/procedures: 1. Cardiac catheterization 03/21/2012: Done in the setting of RCA STEMI. Mid LAD with calcifications and long eccentric 50-60% narrowing. Ostial D1 40-50%. Ostial D2 50%. OM2 superior branch 50-60% narrowing proximally. Proximal RCA 100% with thrombus. PCI performed with 4 x 23 mm Xience TOYA within the proximal to mid RCA. proximal RCA in an overlapping fashion underwent additional 4 x 12 mm Xience TOYA. 2. Echo 12/24/2017: Normal LV size, wall motion, systolic function. EF 65- 70%. Moderate LVH. Moderate left atrial dilation. Mild MR. RVSP 62. 3. Nuclear stress 12/28/2017: Possible small circumflex distribution ischemia versus artifact however artifact felt to be more likely per report. EF 69%. Normal wall motion. Shepresented to the emergency department today due to nausea, vomiting, abdominal pain, diarrhea, and shortness of breath. Yesterday, at approximately 2:00 p.m. she consumed a salad and immediately afterward developed nausea and vomiting x2. She developed periumbilical pain that did not radiate but the pain did worsen throughout the day. She also had diarrhea x2 but denies melena, or hematochezia. After vomiting, she developed acute shortness of breath which has been persistent since then but has improved since presentation. Her shortness of breath was present with exertion or at rest with no significant change in position. She admits that the last time that she took her medications was yesterday near lunch time. She has not consumed any food or drink since 2:00 p.m. yesterday due to her GI complaints. She is prescribed torsemide 10 mg twice daily but states that she takes it when she feels as though she needs it. She estimates that she takes approximately 4 doses per week. Before inquiring about salt, she states, I cheat. She then clarifies that she enjoys eating her salty food. She had blood tinged sputum today forming in the back of her mouth but otherwise denies cami hemoptysis or hematemesis. She has chronic lower extremity edema which she believes is stable. She ambulates with the help of a walker but otherwise is rather sedentary. She denies fever, syncope, near-syncope, palpitations, chest discomfort, or angina. In the past for angina consisted of jaw pain. She has not had any angina or any symptom similar to prior angina as part of her presenting issues. Review of systems: As above. Review of systems otherwise negative/unremarkable. Family history: No known premature CAD in first-degree relatives. Social history: She lives at home. Her daughter lives with her. She also has 2 sons, [address] Griffin Watson who is a surgeon at [employer]. She is a . 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 She was alone in her hospital room. She denies tobacco, alcohol, or drug abuse. Allergies Allergy/AdvReac Type Severity Reaction Status Date / Time sulfamethoxazole Allergy Intermediate felt like Verified 08/26/19 10:55 walking on eggs trimethoprim Allergy Intermediate felt like Verified 08/26/19 10:55 walking on eggs Bactrim Allergy Unknown felt like Verified 11/04/17 07:47 walking on eggs lisinopril Allergy Unknown UNSURE OF Verified 08/26/19 10:55 REACTION streptomycin Allergy Unknown UNSURE Verified 08/26/19 10:55 REACTION Home Medications Home Medications Medication Instructions Recorded Confirmed Type aspirin [Aspir-81] 81 mg PO QAM 12/24/17 08/26/19 History magnesium 400 mg PO BID 06/07/18 08/26/19 History torsemide 10 mg tablet 10 mg PO BID #60 tab 01/26/19 08/26/19 Rx miscellaneous medical supply #1 ea 04/12/19 08/18/19 Rx carvedilol 25 mg tablet 25 mg PO BID #180 tab 04/24/19 08/26/19 Rx isosorbide mononitrate 60 mg 60 mg PO QAM #90 tab 05/12/19 08/26/19 Rx tablet,extended release 24 hr atorvastatin 80 mg tablet 80 mg PO QPM #90 tab 07/07/19 08/26/19 Rx ergocalciferol (vitamin D2) 1,250 50,000 unit PO MONTHLY #3 cap 07/07/19 08/26/19 Rx mcg (50,000 unit) capsule hydralazine 50 mg tablet 100 mg PO TID #560 tab 07/07/19 08/26/19 Rx clopidogrel 75 mg PO QAM 08/01/19 08/26/19 History Patient History Medical History Anemia CHRONIC; baseline ~ 11 Chronic respiratory failure with hypoxia Gout History of nephrolithiasis (Inactive) History of ventricular tachycardia LBBB (left bundle branch block) CHRONIC Lone atrial fibrillation Myocardial Infarction IPMI S/P RCA STENTS X 2 (2011) Osteoarthritis Renal cyst Sleep apnea CPAP + O2 2L HS Umbilical hernia Venous stasis dermatitis of both lower extremities Vitamin D deficiency (Chronic) Surgical History H/O cardiac catheterization 2006 @ [facility] and 03/21/2012 @ [facility] RCA STENTS X 2. H/O heart artery stent RCA STENTS X 2 03/21/2012 History of appendectomy History of cataract surgery BILATERAL History of cystoscopy CYSTO/STENT EXCHANGE 02/20/19 = MAC SEDATION AT [facility]. No complications per records. History of tonsillectomy Hx of prior ablation treatment RFA S/P RVOT VTACH (NO RECURRENCE SINCE 2014 ABLATION PER CARDIO) Family History Unknown Hypertension Other No family history of adverse response to anesthesia Social History Preferred Language: Lebanese Communication Ability: Effective Visual Impairment: No Limitations Hearing Ability: Normal Artillery Or Naval Gunfire Observer Required: No Beliefs That Will Affect Care: None marital status: / Current Living Situation: Family Current Living Situation Comment: lives with special needs daughter Feels Safe at Home: Yes Smoking Status: Never smoker Second Hand Exposure: No ; Hx Alcohol Use: No Hx Substance Use: No Childhood Exposure to Second-Hand Smoke: No Dental Care, Regularly: No Physical Activity Frequency: Does not Exercise Seatbelt Use: always Sunscreen Use: Yes Physical Exam Physical Exam: Gen.: No acute distress. Alert and oriented. HEENT: Anicteric sclera. Neck: JVD noted nursing home to the mandible. No bruits. Normal carotid upstrokes bilaterally. Cardiac: PMI was nonpalpable. No ventricular heave. Regular. Normal S1-S2. 2/6 systolic murmur. No rubs, or gallops. Pulmonary: Bilateral crackles and expiratory wheezing with coarse breath sounds most prominent in the right lung. Abdomen: Soft, nontender, nondistended, with normoactive bowel sounds. No bruits noted. Extremities: 2+ radial pulses bilaterally. 1+ posterior tibialis pulses bilaterally. 1+ bilateral lower extremity edema to the hips. Otherwise, her lower extremities appear to have significant nonpitting edema. No cyanosis. Psychiatric: Affect appears appropriate. Results & Data ([facility]) Vital Signs (Past 12 Hours) Vital Signs Temp Pulse Resp BP Pulse Ox 08/26/19 12:30 62 19 169/73 H 98 08/26/19 12:00 58 L 12 175/78 H 99 08/26/19 11:30 59 L 13 164/62 H 98 08/26/19 11:19 66 16 174/104 H 97 08/26/19 11:00 66 20 08/26/19 10:30 67 16 173/79 H 93 08/26/19 10:00 73 25 H 190/78 H 92 08/26/19 09:50 36.6 C 69 24 190/83 H 94 08/26/19 09:49 70 18 92 08/26/19 09:44 71 19 190/83 H 93 Laboratory Results Laboratory Results - last 24 hr 08/26/19 08/26/19 08/26/19 09:56 09:56 09:56 WBC 8.43 RBC 3.95 L Hgb 11.7 L Hct 38.3 MCV 97.0 MCH 29.6 MCHC 30.5 L RDW Std Deviation 53.7 H RDW Coeff of Nicolasa 15.0 H Plt Count 154 MPV 11.8 H Immature Gran % (Auto) 0.2 Neut % (Auto) 78.5 Lymph % (Auto) 17.0 Gilliam % (Auto) 4.2 Eos % (Auto) 0.0 Baso % (Auto) 0.1 Immature Gran # (Auto) 0.02 Neut # (Auto) 6.62 H Lymph # (Auto) 1.43 Gilliam # (Auto) 0.35 Eos # (Auto) 0.00 Baso # (Auto) 0.01 PT 11.6 INR 1.1 APTT 23.1 PTT Ratio 0.8 Sodium 143 Potassium 4.8 Chloride 111 H Carbon Dioxide 26 Anion Gap 6.0 BUN 89 H Creatinine 3.43 H Est Cr Clr Drug Dosing 14.4 Est GFR ( Amer) 13.5 Est GFR (Non-Af Amer) 11.6 BUN/Creatinine Ratio 25.8 H Glucose 155 H Lactate Calcium 9.2 Total Bilirubin 0.8 AST 22 ALT 19 Alkaline Phosphatase 128 H Troponin I 2.880 H* Total Protein 7.8 Albumin 3.5 Globulin 4.3 H Albumin/Globulin Ratio 0.8 L Lipase 145 08/26/19 10:05 WBC RBC Hgb Hct MCV MCH MCHC RDW Std Deviation RDW Coeff of Nicolasa Plt Count MPV Immature Gran % (Auto) Neut % (Auto) Lymph % (Auto) Gilliam % (Auto) Eos % (Auto) Baso % (Auto) Immature Gran # (Auto) Neut # (Auto) Lymph # (Auto) Gilliam # (Auto) Eos # (Auto) Baso # (Auto) PT INR APTT PTT Ratio Sodium Potassium Chloride Carbon Dioxide Anion Gap BUN Creatinine Est Cr Clr Drug Dosing Est GFR ( Amer) Est GFR (Non-Af Amer) BUN/Creatinine Ratio Glucose Lactate 1.0 Calcium Total Bilirubin AST ALT Alkaline Phosphatase Troponin I Total Protein Albumin Globulin Albumin/Globulin Ratio Lipase Diagnostic Findings On 08/26/2019, chart, labs, echo report, nuclear stress report, chest x-ray report and images personally reviewed, and ECG personally reviewed. ECG 08/26/2019 at 9:46 a.m.: Sinus rhythm with first-degree AV block 70 bpm. LBBB. Chest x-ray 08/26/2019: Pulmonary vascular congestion. Pleural effusions. Abdominal/pelvic CT 08/26/2019: Per Radiology, motion compromised exam. Bilateral pleural effusions. No bowel obstruction. Diverticulosis. Left ureteral stent. No left-sided hydronephrosis. Small nonobstructing right renal calculi. Complex bilateral renal lesions similar to prior studies. Medications Administered Current Inpatient Medications Albuterol (Duoneb) 3 ml NEB QIDR [facility] Stop: 09/25/19 14:59 Aspirin (Ecotrin Ectab) 81 mg PO QAM [facility] Stop: 09/25/19 12:59 Carvedilol (Coreg) 25 mg PO BID [facility] Stop: 09/25/19 12:59 Clopidogrel Bisulfate (Plavix) 75 mg PO QAM [facility] Stop: 09/25/19 12:58 Hydralazine HCl (Apresoline) 100 mg PO TID [facility] Stop: 09/25/19 13:59 Heparin Sodium/Dextrose (Heparin Sodium/Dextrose) 25,000 units in 500 mls @ 18 mls/hr IV .Q24H [facility]; Protocol Stop: 09/25/19 11:59 Last Admin: 08/26/19 12:21 Dose: 900 units/hr, 18 mls/hr Documented by: Ampicillin Sodium/Sulbactam Sodium 3,000 mg/ Sodium Chloride 108 mls @ 200 mls/hr IV Q6H [facility]; Protocol Stop: 09/02/19 12:59 Isosorbide Mononitrate (Imdur Extended Rel) 60 mg PO QAM [facility] Stop: 09/25/19 12:59 Torsemide (Demadex) 10 mg PO BID [facility] Stop: 09/25/19 13:34 PG Care Time/CCT Total # of Minutes Spent Total Time Spent with Patient: Total time spent is greater than 50% in c oordination of care (as documented) at patient's floor/unit and/or counseling patient: Coding Level of Care Code 37645 Initial Inpt Care Lvl 3 Diagnoses Non-ST elevation [place] (NSTEMI) I21.4 CAD (coronary artery disease), [place] coronary artery I25.10 Pulmonary HTN I27.20 Chronic diastolic CHF (congestive heart failure) I50.32 Chronic respiratory failure with hypoxia J96.11 Hypertension I10 SOB (shortness of breath) R06.02 Lone atrial fibrillation I48.91
--- NOTE | 2019-08-26 14:10 | Nephrology Consultation ---
Date of Consultation August 26, 2019 Assessment & Plan (1) Chronic kidney disease, stage IV (severe): CKD IV-V A3. This can be attributed to chronic glomerulosclerosis. Imaging demonstrates atrophic kidneys with cortical scarring. There is no evidence of significant obstruction. The left ureter stent is in appropriate position. Unfortunately, following stent placement last month, there has been no improvement in serum creatinine. eGFR remains ~12. Thankfully, there is no emergent need for dialysis. Judi denies concerning progressive symptoms of uremia. Her metabolic profile is otherwise acceptable with normal electrolytes and serum HCO3. She has fluid retention. Oxygenation improved with supplemental O2. Diuretic use at home has not been consistent. I discussed the plan of care with Dr. Jorgensen. Home diuretic therapy with Torsemide 10 mg will be started. The goal is to encourage a gentle diuresis. CXR demonstrates interstitial edema and pulmonary vascular congestion. Exam demonstrates some rales but predominately evidence of right heart failure. BP elevated consistent with retention. Judi will be closely monitored during medical management. She is agreeable to starting hemodialysis if indicated. She expressed understanding of what this would entail. -- Document I/O's -- Torsemide 10 mg now -- Repeat renal profile tomorrow AM -- Medications are currently appropriately dosed for kidney function. (2) Chronic diastolic CHF (congestive heart failure): -- Cardiology consult appreciated -- Elevated troponin likely attributed to strain and kidney dysfunction. No anginal symptoms, no EKG changes. Heparin pending additional monitoring. No anticipated role for coronary angiography at this time. -- TTE pending. -- No RONY/ARB due to renal dysfunction. (3) Anemia: -- Chronic, stable. -- No role for ELVIA therapy at this time. (4) Pulmonary edema: (5) Hydronephrosis of left kidney: -- Appropriate position of ureteral stent by history. History of Present Illness Reason for Consultation: CKD Requesting Physician: Lashon Jorgensen MD Attending Physician: Lashon Jorgensen MD History of Present Illness Mrs. Judi Watson is an 84-year-old female with advanced chronic kidney disease. She follows in the outpatient clinic with Dr. Alvarado. Serum creatinine has been 3.0 to 3.4 mg/dL. Electrolytes have been acceptable. Creatinine was 2.5 mg/dL in January. In , creatinine yogesh to 3.4-3.6 mg/dL. Random urine samples have demonstrated nephrotic range proteinuria (3-6 g/g since at least 2018). CKD has been attributed to microvascular disease and hypertensive nephrosclerosis. Abdominal CT demonstrates the kidneys to be atrophic with notable areas of cortical scaring. Calcific vascular disease and bilateral complex cysts. These lesions were identified as hemorrhagic cysts on prior MRI. There is a well positioned indwelling left ureteral stent. Mrs. Watson presented to the ER at [facility] today with nausea, vomiting, and abdominal pain. She attributes the symptoms to "bad cooking." She notes that vomiting and nausea started after lunch which she prepared herself at home. Medical history is notable for complex renal cysts, coronary artery disease, hypertension, chronic left hydronephrosis with left ureteral stent, pulmonary hypertension, right heart failure, chronic diastolic CHF, atrial fibrillation, and GURPREET. Symptoms started within the past 24 hours. Appetite was poor yesterday. Nausea and vomiting started after lunch. Mild abdominal pain associated with symptoms. Pain was experienced in her umbilical hernia. A couple loose bowel movements followed the onset of symptoms. Emesis was non-bloody and non-bilious. She denies any melena or hematochezia. She denies fevers or chills or sick contacts. She describes mild difficulty breathing prior to presenting to the ER. Symptoms have improved. Judi was hypoxic on presentation. CXR demonstrates interstitial edema and mild to moderate pulmonary vascular congestion. Laboratory studies are notable for a creatinine of 3.4 mg/dL. Electrolytes acceptable. Troponin was elevated at 2.8. No acute EKG changes noted. TTE being obtained at this time. Nephrologic history includes recent progressive uremia and rising creatinine. In July, creatinine had elevated to 3.46 mg/dL. The patient was mildly hyperkalemic. Cystoscopy, left retrograde pyelogram, and left stent exchange were performed 08/03/[address] Cantu. Judi reports that her understanding of dialysis is limited. Her primary goal has always been to avoid dialysis and she finds thinking about life on dialysis to be unpleasant. However, she is open to the idea of in center hemodialysis, if needed. 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 Allergies Allergy/AdvReac Type Severity Reaction Status Date / Time sulfamethoxazole Allergy Intermediate felt like Verified 08/26/19 10:55 walking on eggs trimethoprim Allergy Intermediate felt like Verified 08/26/19 10:55 walking on eggs Bactrim Allergy Unknown felt like Verified 11/04/17 07:47 walking on eggs lisinopril Allergy Unknown UNSURE OF Verified 08/26/19 10:55 REACTION streptomycin Allergy Unknown UNSURE Verified 08/26/19 10:55 REACTION Home Medications Home Medications Medication Instructions Recorded Confirmed Type aspirin [Aspir-81] 81 mg PO QAM 12/24/17 08/26/19 History magnesium 400 mg PO BID 06/07/18 08/26/19 History torsemide 10 mg tablet 10 mg PO BID #60 tab 01/26/19 08/26/19 Rx miscellaneous medical supply #1 ea 04/12/19 08/18/19 Rx carvedilol 25 mg tablet 25 mg PO BID #180 tab 04/24/19 08/26/19 Rx isosorbide mononitrate 60 mg 60 mg PO QAM #90 tab 05/12/19 08/26/19 Rx tablet,extended release 24 hr atorvastatin 80 mg tablet 80 mg PO QPM #90 tab 07/07/19 08/26/19 Rx ergocalciferol (vitamin D2) 1,250 50,000 unit PO MONTHLY #3 cap 07/07/19 08/26/19 Rx mcg (50,000 unit) capsule hydralazine 50 mg tablet 100 mg PO TID #560 tab 07/07/19 08/26/19 Rx clopidogrel 75 mg PO QAM 08/01/19 08/26/19 History Patient History Medical History Anemia CHRONIC; baseline ~ 11 Chronic diastolic CHF (congestive heart failure) Chronic respiratory failure with hypoxia Gout History of nephrolithiasis (Inactive) History of ventricular tachycardia LBBB (left bundle branch block) CHRONIC Lone atrial fibrillation Myocardial Infarction IPMI S/P RCA STENTS X 2 (2011) Osteoarthritis Renal cyst Sleep apnea CPAP + O2 2L HS Umbilical hernia Venous stasis dermatitis of both lower extremities Vitamin D deficiency (Chronic) Surgical History H/O cardiac catheterization 2006 @ [facility] and 03/21/2012 @ [facility] RCA STENTS X 2. H/O heart artery stent RCA STENTS X 2 03/21/2012 History of appendectomy History of cataract surgery BILATERAL History of cystoscopy CYSTO/STENT EXCHANGE 02/20/19 = MAC SEDATION AT [facility]. No complications per records. History of tonsillectomy Hx of prior ablation treatment RFA S/P RVOT VTACH (NO RECURRENCE SINCE 2015 ABLATION PER CARDIO) Family History Unknown Hypertension Other No family history of adverse response to anesthesia Social History Preferred Language: Greek Communication Ability: Effective Visual Impairment: No Limitations Hearing Ability: Normal Shop Helper Required: No Beliefs That Will Affect Care: None marital status: / Current Living Situation: Family Current Living Situation Comment: lives with special needs daughter Feels Safe at Home: Yes Smoking Status: Never smoker Second Hand Exposure: No ; Hx Alcohol Use: No Hx Substance Use: No Childhood Exposure to Second-Hand Smoke: No Dental Care, Regularly: No Physical Activity Frequency: Does not Exercise Seatbelt Use: always Sunscreen Use: Yes Review of Systems Review of Systems: All systems reviewed & are unremarkable except as noted in HPI & below Physical Exam Constitutional: well developed and + obese; no acute distress Eyes: + anicteric sclerae; no corneal abnormality ENMT: Mouth: no oral mucosal abnormality and oral mucous membranes not dry Neck: normal visual inspection and trachea midline Respiratory: no respiratory distress, no labored breathing and not tachypneic Auscultation: + rales Cardiovascular: Rate/Rhythm: + bradycardic Heart Sounds: normal S1 and normal S2; no gallop Vessels: + JVD Extremities: normal capillary refill and + edema (2+ pitting BL LE to the knees) Gastrointestinal (Abdomen): Inspection/Auscultation: normal bowel sounds Percussion/Palpation: abdomen soft; abdomen nontender Musculoskeletal: Extremities: no cyanosis and no clubbing Skin: + turgor decreased; no jaundice Neurologic: awake; not confused Motor/Sensory: no tremor and no asterixis Results & Data Vital Signs (Past 12 Hours) Vital Signs Temp Pulse Resp BP Pulse Ox 08/26/19 13:30 56 L 14 191/72 H 97 08/26/19 13:00 58 L 13 166/53 H 95 08/26/19 12:30 62 19 169/73 H 98 08/26/19 12:00 58 L 12 175/78 H 99 08/26/19 11:30 59 L 13 164/62 H 98 08/26/19 11:19 66 16 174/104 H 97 08/26/19 11:00 66 20 08/26/19 10:30 67 16 173/79 H 93 08/26/19 10:00 73 25 H 190/78 H 92 08/26/19 09:50 36.6 C 69 24 190/83 H 94 08/26/19 09:49 70 18 92 08/26/19 09:44 71 19 190/83 H 93 Laboratory Results Laboratory Results - last 24 hr 08/26/19 08/26/19 08/26/19 09:56 09:56 09:56 WBC 8.43 RBC 3.95 L Hgb 11.7 L Hct 38.3 MCV 97.0 MCH 29.6 MCHC 30.5 L RDW Std Deviation 53.7 H RDW Coeff of Nicolasa 15.0 H Plt Count 154 MPV 11.8 H Immature Gran % (Auto) 0.2 Neut % (Auto) 78.5 Lymph % (Auto) 17.0 [place] % (Auto) 4.2 Eos % (Auto) 0.0 Baso % (Auto) 0.1 Immature Gran # (Auto) 0.02 Neut # (Auto) 6.62 H Lymph # (Auto) 1.43 [place] # (Auto) 0.35 Eos # (Auto) 0.00 Baso # (Auto) 0.01 PT 11.6 INR 1.1 APTT 23.1 PTT Ratio 0.8 Sodium 143 Potassium 4.8 Chloride 111 H Carbon Dioxide 26 Anion Gap 6.0 BUN 89 H Creatinine 3.43 H Est Cr Clr Drug Dosing 14.4 Est GFR ( Amer) 13.5 Est GFR (Non-Af Amer) 11.6 BUN/Creatinine Ratio 25.8 H Glucose 155 H Lactate Calcium 9.2 Total Bilirubin 0.8 AST 22 ALT 19 Alkaline Phosphatase 128 H Troponin I 2.880 H* Total Protein 7.8 Albumin 3.5 Globulin 4.3 H Albumin/Globulin Ratio 0.8 L Lipase 145 08/26/19 10:05 WBC RBC Hgb Hct MCV MCH MCHC RDW Std Deviation RDW Coeff of Nicolasa Plt Count MPV Immature Gran % (Auto) Neut % (Auto) Lymph % (Auto) [place] % (Auto) Eos % (Auto) Baso % (Auto) Immature Gran # (Auto) Neut # (Auto) Lymph # (Auto) [place] # (Auto) Eos # (Auto) Baso # (Auto) PT INR APTT PTT Ratio Sodium Potassium Chloride Carbon Dioxide Anion Gap BUN Creatinine Est Cr Clr Drug Dosing Est GFR ( Amer) Est GFR (Non-Af Amer) BUN/Creatinine Ratio Glucose Lactate 1.0 Calcium Total Bilirubin AST ALT Alkaline Phosphatase Troponin I Total Protein Albumin Globulin Albumin/Globulin Ratio Lipase PG Care Time/CCT Total # of Minutes Spent Total Time Spent with Patient: Total time spent is greater than 50% in coordination of care (as documented) at patient's floor/unit and/or counseling patient: Coding Level of Care Code 08771 Inpt Consult Level 4 Diagnoses Chronic kidney disease, stage IV (severe) N18.4 Chronic diastolic CHF (congestive heart failure) I50.32 Anemia D64.9 Pulmonary edema J81.0 Chronicity: acute Hydronephrosis of left kidney N13.30 (1) Pulmonary edema Chronicity: acute Qualified Code(s): J81.0 - Acute pulmonary edema
[2019-08-26] MEDS: HydrALAZINE TAB 50 MG TAB PO SCH ×2 (14:39→20:26)
[2019-08-26] MEDS: TORSEMIDE 10 MG TAB PO SCH ×2 (15:32→20:25)
[2019-08-26] MEDS ORDERED: AMPICILLIN/SULBACTAM CONSULT ACTIVE PRN (15:32)
[2019-08-26] MEDS: CLOPIDOGREL BISULFATE 75 MG TAB PO SCH (15:32)
[2019-08-26] MEDS: ISOSORBIDE MONO EXTENDED REL 60 MG TABCR PO SCH (15:32)
[2019-08-26] MEDS: carvediloL 25 MG TAB PO SCH ×2 (15:32→20:26)
[2019-08-26] MEDS: ASPIRIN 81 MG ECTAB PO SCH (15:33)
[2019-08-26] MEDS ORDERED: NITROGLYCERIN SL 0.4 MG/TAB TAB SL PRN (16:20)
[2019-08-26] MEDS ORDERED: PROMETHAZINE HCL 6.25 MG in SODIUM CHLORIDE 0.9% 50 ML IV PRN (16:20)
[2019-08-26] MEDS: ALBUT/IPRATROP 3MG/0.5MG NEB 3 ML VIAL NEB SCH ×2 (19:58)
--- NOTE | 2019-08-26 23:01 | Electrocardiogram Report ---
Test Reason : Blood Pressure : / mmHG Vent. Rate : 070 BPM Atrial Rate : 070 BPM P-R Int : 214 ms QRS Dur : 154 ms QT Int : 502 ms P-R-T Axes : 064 -45 088 degrees QTc Int : 542 ms Poor data quality, interpretation may be adversely affected Sinus rhythm with 1st degree A-V block Left axis deviation Left bundle branch block Abnormal ECG When compared with ECG of 29-AUG-2018 08:38, ID interval has increased QRS axis Shifted left Confirmed by Simon Delong ([id number]) on 08/26/2019 11:00:44 PM Referred By: REFERRED SELF Confirmed By:Simon Delong
[2019-08-26] MEDS: ATORVASTATIN 40 MG TAB PO SCH (23:15)
[2019-08-27 06:11] LABS: Basophils # (auto) 0.01 K/uL (0-0.2); Basophils % (auto) 0.1 %; Eosinophils # (auto) 0.01 K/uL (0-0.5); Eosinophils % (auto) 0.1 %; Hematocrit (blood only) 33.5 % (37-47); Hemoglobin 10.2 g/dL (12.0-16.0); Immature Granulocytes # (auto) 0.03 K/uL (0.00-0.02); Immature Granulocytes % (auto) 0.4 %; Lymphocytes # (auto) 1.26 K/uL (1.2-3.4); Lymphocytes % (auto) 14.9 %; Mean Corpuscular Hemoglobin 29.6 pg (25-34); Mean Corpuscular Hgb Conc 30.4 g/dL (32-36); Mean Corpuscular Volume 97.1 fL (80-100); Mean Platelet Volume 11.6 fL (7.4-10.4); Monocytes # (auto) 0.71 K/uL (0.11-0.59); Monocytes % (auto) 8.4 %; Neutrophils # (auto) 6.44 K/uL (1.4-6.5); Neutrophils % (auto) 76.1 %; Platelet Count 133 K/uL (130-400); RDW Coefficient of Variation 15.3 % (11.5-14.5); RDW Standard Deviation 53.8 fL (36.4-46.3); Red Blood Count 3.45 M/uL (4.2-5.4); White Blood Count 8.46 K/uL (4.8-10.8)
[2019-08-27 06:22] LABS: Appearance Urine Clear (Clear); Bacteria Urine Automated Negative (Negative); Bilirubin Urine Negative (Negative); Blood Urine Negative (Negative); Color Urine Yellow; Epithelial Cell Urine Auto >30 /lpf (0-5); Glucose Urine UA Negative (Negative); Ketones Urine Negative (Negative); Leukocyte Esterase Urine Trace (Negative); Nitrite Urine Negative (Negative); Protein Urine 4+ (Negative); RBC Urine Automated 0-4 /hpf (0-4); Specific Gravity Urine 1.025 (1.000-1.030); Urobilinogen Urine Negative (Negative)
[2019-08-27 06:52] LABS: Albumin Globulin Ratio 0.8 (0.9-2); Albumin Level 2.8 gm/dl (3.4-5.0); BUN Creatinine Ratio 24.7 (10-20); Bilirubin,Total 0.7 mg/dl (0.2-1); Calcium 8.3 mg/dl (8.5-10.1); Creatinine Clr Calc Pharmacy 13.1 ml/min; Est GFR (African American) 12.1; Est GFR (Non-African American) 10.4; Globulin 3.4 gm/dl (2.5-4.0); Magnesium 3.9 mg/dl (1.8-2.4); Potassium 5.6 mmol/L (3.5-5.1); Total Protein 6.2 gm/dl (6.4-8.2)
[2019-08-27] MEDS: ALBUT/IPRATROP 3MG/0.5MG NEB 3 ML VIAL NEB SCH ×4 (07:22→19:17)
[2019-08-27] MEDS ORDERED: SODIUM POLYSTYRENE SULFONATE 15G/60ML SUSP PO STA (07:38)
--- NOTE | 2019-08-27 07:47 | Hospitalist Progress Note ---
Date of Service August 27, 2019 Assessment & Plan (1) Acute respiratory failure with hypoxemia: aspiration pneumonia / pneumonitis, chest x-ray appears to be pulmonary edema plus possible aspiration pneumonitis -supplemental oxygen inintally on NIPPV -Start Unasyn renally dosed Chronically on 2 l oxygen (2) Non-ST elevation IL (NSTEMI): Troponin 2.88 on admission, likely myocardial demand ischemia and less likely ACS given the hypoxia, recent nausea/vomiting With known underlying CAD, status post TOYA to the RCA x2 ECG with LBBB -Continue home aspirin, Plavix, atorvastatin, carvedilol, isosorbide, hydralazine - serial troponin did not rise -Started on heparin drip in the ER-did discontinue -cardiology consultation, renal function prevents left heart cath (3) (HFpEF) heart failure with preserved ejection fraction: Some component of acute on chronic diastolic CHF, but also with aspiration pneumonitis, has small bilateral pleural effusions Her weight is not up significantly from previous, but she has JVD, significant lower extremity edema and pulmonary rales -Only takes torsemide once a day about 4 times a week rather than the twice daily as prescribed continue bid torsemide, follow renal function and clinicaly HF symptoms - is known to also have pulmonary htn in past -Appreciate cardiology consultation -Nephrology also consulted (4) Nausea & vomiting: INitially with abdominal pain, now resolved. No leukocytosis here, LFTs are normal, lipase normal. CT of the abdomen/pelvis without contrast does not show any evidence of colitis, diverticulitis, or obstruction. She did have associated periumbilical pain at the site of her hernia when it first started. Question if had a partial small bowel obstruction at that time which is now resolved. Abdominal pain completely resolved and hernia is reducible. Lactate is negative. Nausea is now improved Perhaps could be atypical presentation of acute coronary syndrome given elevated troponin, although seems that that is more likely myocardial demand ischemia. (5) Chronic kidney disease, stage IV (severe): Baseline creatinine used to be 2.3-2.5, but in the last month has gone up to 3.4-3.6 This did not change despite changing out her left ureteral stent 2 weeks ago with urology There is no hydronephrosis or blockage on CT abdomen/pelvis here today history of bilateral renal cysts -Consult nephrology -is hyperkalemic 6/7/20, will repeat and if elevated give potassium binder po (6) Hypertension: Continue home meds of carvedilol, isosorbide, hydralazine, torsemide if can tolerate p.o. (7) Sleep apnea: -We will order CPAP at 3 cm H2O with 2 L oxygen connected at bedtime (8) Lone atrial fibrillation: Many years ago, thought to be due to hypomagnesemia currently in NSR with LBBB also history of VT but no recurrence sine RVOT ablation (9) Umbilical hernia: As above, is reducible (10) Gout: No acute flare (11) Venous stasis dermatitis of both lower extremities: - (12) Thickened endometrium: Incidentally noted to be thickened on CT scan -Needs outpatient pelvic ultrasound and gynecology follow-up if desired (13) Anemia: Likely secondary to chronic kidney disease Hemoglobin fairly stable here 11.7 (14) DVT prophylaxis: transition to bid heparin sc DNR/DNI as per his discussion with patient Admission and Anticipated Discharge Date Admission Date: August 26, 2019 Subjective pt has no complaints this am, feels her breathing is improved, no further nausea or vomiting. labs in am have elevated K+, and Cr, will recheck and if K+ is persistently high will give postasium binders, in light of history of CAD and Arrythmias Review of Systems Review of Systems: Mild respiratory distress and fatigue no headache, blurry or double vision no speech or swallowing issues no chest pain, pressure or palpitations mild shortness of breath, no cough or wheezes no abdominal pain, nausea or vomiting, diarrhea or constipation no dysuria, hematuria or frequency no focal joint pain or swelling no back pain, CVA tenderness or radicular pain no bruising, bleeding or rashes no focal signs of weakness or numbness or altered sensation no complaints or anxiety or depression. Physical Exam Physical Exam: The patient appeared well nourished and normally developed. Vital signs as documented. she is off NIPPV on NC Head exam is normocephalic atraumatic no scleral icterus Neck is without JVD, thyromegaly, or carotid bruits. Lungs are with continues rales b/l 1/2 way up Cardiac exam, Rhythm is regular.. No murmurs, rubs or gallops. Abdominal exam reveals normal bowel sounds, soft non tender, no masses Extremities are mildly edematous and both pedal pulses are normal. Neurologic exam is alert and oriented, no focal loss of strength or sensation Skin is without bruises or rashes Psychologically is without concerns for anxiety or depression Results & Data Results & Data ([facility]) Vital Signs (Past 12 Hours) Vital Signs Temp Pulse Pulse Resp BP Pulse Ox 08/27/19 07:24 69 14 90 08/27/19 07:23 69 14 90 08/27/19 03:52 98.8 F 64 18 156/68 H 91 08/27/19 02:58 54 L 18 91 08/27/19 00:00 52 L 08/26/19 23:47 98.1 F 54 L 17 127/63 91 08/26/19 23:18 53 L 16 91 08/26/19 21:00 80 18 97 08/26/19 20:00 98.2 F 51 L 18 147/70 H 96 08/26/19 19:59 88 20 96 PG Care Time/CCT Total # of Minutes Spent Total Time Spent with Patient: Total time spent is greater than 50% in coordination of care (as documented) at patient's floor/unit and/or counseling patient: Coding Level of Care Code 15714 Subseq Hosp Care Lvl 3 Diagnoses Acute respiratory failure with hypoxemia J96.01 Non-ST elevation IL (NSTEMI) I21.4 (HFpEF) heart failure with preserved ejection fraction I50.30 Nausea & vomiting R11.2 Vomiting Intractability: non-intractable Vomiting type: unspecified Chronic kidney disease, stage IV (severe) N18.4 Hypertension I10 Sleep apnea G47.30 Lone atrial fibrillation I48.91 Umbilical hernia K42.9 Gout M10.9 Venous stasis dermatitis of both lower extremities I87.2 Thickened endometrium R93.89 Anemia D64.9 DVT prophylaxis Z29.9 (1) Nausea & vomiting Vomiting Intractability: non-intractable Vomiting type: unspecified Qualified Code(s): R11.2 - Nausea with vomiting, unspecified
[2019-08-27] MEDS ORDERED: FUROSEMIDE 40 MG in SYRINGE 0 ML IV ONE (08:00)
--- NOTE | 2019-08-27 08:24 | XCELERA ---
[id number] \\[id number]
[2019-08-27] MEDS: HydrALAZINE TAB 50 MG TAB PO SCH ×3 (09:07→20:16)
[2019-08-27] MEDS: carvediloL 25 MG TAB PO SCH ×2 (09:07→20:15)
[2019-08-27] MEDS: ASPIRIN 81 MG ECTAB PO SCH (09:33)
[2019-08-27] MEDS: TORSEMIDE 10 MG TAB PO SCH ×2 (09:33→20:16)
[2019-08-27] MEDS: CLOPIDOGREL BISULFATE 75 MG TAB PO SCH (09:34)
[2019-08-27] MEDS: ISOSORBIDE MONO EXTENDED REL 60 MG TABCR PO SCH (09:34)
[2019-08-27] MEDS: HEPARIN SOD 5,000 UNIT/0.5 ML VIAL SQ SCH ×2 (09:35→20:16)
[2019-08-27 11:41] LABS: BUN Creatinine Ratio 23.4 (10-20); Calcium 8.3 mg/dl (8.5-10.1); Creatinine Clr Calc Pharmacy 12.6 ml/min; Est GFR (African American) 11.6; Potassium 5.6 mmol/L (3.5-5.1)
--- NOTE | 2019-08-27 13:09 | Cardiology Progress Note ---
Date of Service August 27, 2019 Assessment & Plan (1) Non-ST elevation [place] (NSTEMI): (2) CAD (coronary artery disease), jackson coronary artery: (3) Pulmonary HTN: (4) Chronic diastolic CHF (congestive heart failure): (5) Chronic respiratory failure with hypoxia: (6) Hypertension: (7) SOB (shortness of breath): (8) Lone atrial fibrillation: ASSESSMENT/PLAN: 1. NSTEMI: She did not present with any angina and symptoms do not appear to correlate with acute coronary syndrome. Troponin peaked at 3.8. Elevated troponin more likely due to underlying coronary artery disease in the setting of significant hypertension, and her acute illness in the setting of hypervolemia. Apical akinesis on echo but normal LV systolic function. 2. CAD s/p RCA PCI:: She had other residual CAD as well within the LAD, D1, D2, OM2. No angina. New apical wall motion abnormality on echo but she did have diffuse mid LAD stenosis in 2011. Would not pursue cardiac catheterization at this time given lack of anginal symptoms and in the setting of worsening renal function. Continue anti-platelet therapy with aspirin 81 mg daily. She is also on Plavix 75 mg daily. Continue beta-davey and high-intensity statin therapy. 3. Chronic diastolic CHF: She remains hypervolemic based on examination. Would recommend further diuresis. Her renal function worsened despite no significant diuresis yesterday. If inadequate diuresis today, would recommend intravenous diuretic. No changes were made today when she was seen so that patient care could be discussed with Nephrology. Discussed with Dr. Nascimento of Nephrology who agrees that she appears hypervolemic. Bladder scanning was pending with Dr. Nascimento . Low-sodium diet. Check daily weights. Strict I&Os. 4. Shortness of breath/acute on chronic respiratory failure with hypoxia: Concern for aspiration pneumonitis given her acute shortness of breath beginning after vomiting. Treatment as per primary service. She also appears to be intravascularly hypervolemic. Diuresis as above. 5. Hypertension: Blood pressure remains elevated. This should hopefully improve when diuresis is achieved. 6. Pulmonary hypertension: Has a history of pulmonary hypertension. She continues to have elevated PA pressures on echo, which are stable. She does h ave sleep apnea as a possible etiology and also hypervolemia. 7. Atrial fibrillation: Has a history of atrial fibrillation which is described as a loan event due to electrolyte abnormalities in December of 2013. Because of this, she has not required anticoagulation therapy. 8. Nausea/vomiting/abdominal pain: As per primary hospitalist service. Fortunately, symptoms have improved. 9. CKD and hyperkalemia: Her renal function has worsened and she is mildly hyperkalemic. She has been intermittently mildly hyperkalemic when reviewing recent labs. She has been given a potassium binding agent by the primary hospitalist service. Diuresis should also help. 10. Disposition: Cardiology will continue to follow. Her primary finish filer, Dr. Lopez, will resume her cardiology care tomorrow. Patient care discussed with nephrology, Dr. Nascimento. Admission and Anticipated Discharge Date Admission Date: August 26, 2019 Subjective She is feeling better today. She had not yet eaten this morning when I evaluated her however breakfast was brought to her bedside during our visit. She has not had any further nausea or vomiting. Abdominal painHas not returned. She continues to deny chest pain. Shortness of breath has improved. She is still receiving supplemental oxygen however. She denies syncope, near-syncope, palpitations, or bleeding. She was alone in her hospital room. Review of systems: As above. Physical Exam Physical Exam: Gen.: No acute distress. Alert and oriented. HEENT: Anicteric sclera. Neck: Mild JVD. Cardiac: No ventricular heave. Regular. Normal S1-S2. 2/6 systolic murmur. No rubs, or gallops. Pulmonary: Bilateral rales noted at the bases. Expiratory wheezing with coarse breath sounds most prominent in the upper lung musa. Abdomen: Soft, nontender, nondistended, with normoactive bowel sounds. No bruits noted. Extremities: 1+ bilateral lower extremity edema to the hips. No cyanosis. Psychiatric: Affect appears appropriate. Results & Data ([facility]) Vital Signs (Past 12 Hours) Vital Signs Temp Pulse Pulse Resp BP Pulse Ox 08/27/19 11:59 36.6 C 62 22 166/69 H 92 08/27/19 10:54 62 20 92 08/27/19 08:10 37.2 C 71 16 181/65 H 92 08/27/19 08:00 64 08/27/19 07:24 69 14 90 08/27/19 07:23 69 14 90 08/27/19 03:52 37.1 C 64 18 156/68 H 91 08/27/19 02:58 54 L 18 91 Intake & Output 08/25/19 08/26/19 08/27/19 08/28/19 06:59 06:59 06:59 06:59 Intake Total 359.05 / 359.05 Output Total 400 / 400 150 / 150 Balance -40.95 / -40.95 -150 / -150 Weight 100.2 kg Laboratory Results Laboratory Results - last 24 hr 08/26/19 08/26/19 08/27/19 16:11 21:41 04:10 WBC RBC Hgb Hct MCV MCH MCHC RDW Std Deviation RDW Coeff of Nicolasa Plt Count MPV Immature Gran % (Auto) Neut % (Auto) Lymph % (Auto) [place] % (Auto) Eos % (Auto) Baso % (Auto) Immature Gran # (Auto) Neut # (Auto) Lymph # (Auto) [place] # (Auto) Eos # (Auto) Baso # (Auto) Sodium Potassium Chloride Carbon Dioxide Anion Gap BUN Creatinine Est Cr Clr Drug Dosing Est GFR ( Amer) Est GFR (Non-Af Amer) BUN/Creatinine Ratio Glucose Calcium Magnesium Total Bilirubin AST ALT Alkaline Phosphatase Troponin I 3.820 H* 3.320 H* Total Protein Albumin Globulin Albumin/Globulin Ratio Urine Color Yellow Urine Appearance Clear Urine pH 5.0 Ur Specific [place] 1.025 Urine Protein 4+ H Urine Glucose (UA) Negative Urine Ketones Negative Urine Blood Negative Urine Nitrite Negative Urine Bilirubin Negative Urine Urobilinogen Negative Ur Leukocyte Esterase Trace H Urine WBC (Auto) 10-30 H Urine RBC (Auto) 0-4 U Hyaline Cast (Auto) 1-5 U Epithel Cells (Auto) >30 H Urine Bacteria (Auto) Negative Ur Renal Epithelial Cell Not Reportable 08/27/19 08/27/19 08/27/19 06:01 06:01 11:05 WBC 8.46 RBC 3.45 L Hgb 10.2 L Hct 33.5 L MCV 97.1 MCH 29.6 MCHC 30.4 L RDW Std Deviation 53.8 H RDW Coeff of Nicolasa 15.3 H Plt Count 133 MPV 11.6 H Immature Gran % (Auto) 0.4 Neut % (Auto) 76.1 Lymph % (Auto) 14.9 [place] % (Auto) 8.4 Eos % (Auto) 0.1 Baso % (Auto) 0.1 Immature Gran # (Auto) 0.03 H Neut # (Auto) 6.44 Lymph # (Auto) 1.26 [place] # (Auto) 0.71 H Eos # (Auto) 0.01 Baso # (Auto) 0.01 Sodium 146 H 143 Potassium 5.6 H D 5.6 H Chloride 113 H 109 H Carbon Dioxide 27 28 Anion Gap 6.0 6.0 BUN 93 H 91 H Creatinine 3.76 H D 3.89 H Est Cr Clr Drug Dosing 13.1 12.6 Est GFR ( Amer) 12.1 11.6 Est GFR (Non-Af Amer) 10.4 10.0 BUN/Creatinine Ratio 24.7 H 23.4 H Glucose 107 H 143 H Calcium 8.3 L 8.3 L Magnesium 3.9 H Total Bilirubin 0.7 AST 23 ALT 14 Alkaline Phosphatase 94 Troponin I Total Protein 6.2 L D Albumin 2.8 L Globulin 3.4 Albumin/Globulin Ratio 0.8 L Urine Color Urine Appearance Urine pH Ur Specific [place] Urine Protein Urine Glucose (UA) Urine Ketones Urine Blood Urine Nitrite Urine Bilirubin Urine Urobilinogen Ur Leukocyte Esterase Urine WBC (Auto) Urine RBC (Auto) U Hyaline Cast (Auto) U Epithel Cells (Auto) Urine Bacteria (Auto) Ur Renal Epithelial Cell Diagnostic Findings Telemetry personally reviewed: Sinus rhythm. No arrhythmia. Echo 08/27/2019 personally reviewed: Mildly dilated LV with normal systolic function. EF 55-60%. Apical akinesis. Mild LVH. Moderate left atrial dilation. Mild right atrial dilation. Mild MR. Mild to moderate TR. RVSP 59. Medications Administered Current Inpatient Medications Acetaminophen (Tylenol) 650 mg PO Q4H PRN PRN Reason: Pain or Fever Stop: 09/25/19 16:19 Albuterol (Duoneb) 3 ml NEB QIDR [facility] Stop: 09/25/19 14:59 Last Admin: 08/27/19 10:54 Dose: 3 ml Documented by: Aspirin (Ecotrin Ectab) 81 mg PO QAM [facility] Stop: 09/25/19 12:59 Last Admin: 08/27/19 09:33 Dose: 81 mg Documented by: Atorvastatin Calcium (Lipitor) 80 mg PO QPM [facility] Stop: 09/25/19 20:59 Last Admin: 08/26/19 23:15 Dose: 80 mg Documented by: Carvedilol (Coreg) 25 mg PO BID [facility] Stop: 09/25/19 12:59 Last Admin: 08/27/19 09:07 Dose: 25 mg Documented by: Clopidogrel Bisulfate (Plavix) 75 mg PO QAM [facility] Stop: 09/25/19 12:58 Last Admin: 08/27/19 09:34 Dose: 75 mg Documented by: Heparin Sodium (Porcine) (Heparin Sodium (Porcine)) 5,000 units SQ Q12 SAL Stop: 09/26/19 08:59 Last Admin: 08/27/19 09:35 Dose: 5,000 units Documented by: Hydralazine HCl (Apresoline) 100 mg PO TID [facility] Stop: 09/25/19 13:59 Last Admin: 08/27/19 09:07 Dose: 100 mg Documented by: Ampicillin Sodium/Sulbactam Sodium 3,000 mg/ Sodium Chloride 108 mls @ 200 mls/hr IV Q24H [facility]; Protocol Stop: 09/02/19 13:59 Promethazine HCl 6.25 mg/ (Sodium Chloride) 50.25 mls @ 201 mls/hr IV Q6H PRN PRN Reason: Nausea And Vomiting Stop: 09/25/19 16:19 Isosorbide Mononitrate (Imdur Extended Rel) [facility] Stop: 09/25/19 12:59 Last Admin: 08/27/19 09:34 Dose: 60 mg Documented by: Miscellaneous Information (Ampicillin/Sulbactam Consult) 1 ea N/A UD PRN PRN Reason: Consult Stop: 09/25/19 15:31 Nitroglycerin (Nitrostat) 0.4 mg UD PRN PRN Reason: Chest Pain Stop: 09/25/19 16:19 Torsemide (Demadex) 10 mg PO BID [facility] Stop: 09/25/19 13:34 Last Admin: 08/27/19 09:33 Dose: 10 mg Documented by: PG Care Time/CCT Total # of Minutes Spent Total Time Spent with Patient: Total time spent is greater than 50% in coordination of care (as documented) at patient's floor/unit and/or counseling patient: Coding Level of Care Code 65681 Subseq Hosp Care Lvl 3 Diagnoses Non-ST elevation [place] (NSTEMI) I21.4 CAD (coronary artery disease), jackson coronary artery I25.10 Pulmonary HTN I27.20 Chronic diastolic CHF (congestive heart failure) I50.32 Chronic respiratory failure with hypoxia J96.11 Hypertension I10 SOB (shortness of breath) R06.02 Lone atrial fibrillation I48.91
--- NOTE | 2019-08-27 13:27 | Nephrology Progress Note ---
Date of Service August 27, 2019 Assessment & Plan (1) Chronic kidney disease, stage IV (severe): CKD IV-V A3. 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 Baseline creatinine ~3.4 mg/dL. No emergent indication for dialysis. We discussed potential future indications in detail. Judi is agreeable to start HD if necessary. Some urinary retention noted. Owen was placed for accurate I/O's and close monitoring. I favor leaving in place for a couple of days prior to voiding trial. CT sca did not demonstrate significant evidence of obstruction. L ureteral stent in appropriate position. Metabolic profile will be closely monitored in the setting of increasing creatinine and hyperkalemia. Repeat this afternoon after Owen maintained to gravity. Additional Torsemide 10 mg provided this AM. Judi remains volume overloaded. I discussed the plan of care with Dr. Devlin and Dr. Delong this morning. Goal should be at least 1 L negative per day. If appropriate diuresis is not achieved with Torsemide, I would suggest switching to IV furosemide to Bumex. Trial of 40 mg IV furosemide would be reasonable. Imaging demonstrates atrophic kidneys with cortical scarring. There is no evidence of significant obstruction. The left ureter stent is in appropriate position. Unfortunately, following stent placement last month, there has been no improvement in serum creatinine. -- Document I/O's. -- Low K+ and low Na+ diet. -- Owen to gravity. -- Torsemide 10 mg BID. Switch to IV loop diuretic if not negative at least 500+ ml this afternoon. -- Repeat renal profile this afternoon and tomorrow AM. -- Medications are currently appropriately dosed for kidney function. (2) Chronic diastolic CHF (congestive heart failure): -- Cardiology consult appreciated -- No anticipated role for coronary angiography at this time. -- TTE reviewed this AM notable for mild to mod TR and RXSP 59. -- No RONY/ARB due to renal dysfunction. (3) Anemia: -- Repeat tomorrow AM -- Iron profile with AM labs (4) Pulmonary edema: (5) Hydronephrosis of left kidney: -- Appropriate position of ureteral stent by history. Admission and Anticipated Discharge Date Admission Date: August 26, 2019 Subjective No acute events overnight. Straight cath performed overnight for urinary retention, 400 ml. Overall, Judi feels much better today. Mild nausea experienced this AM. No vomiting . No abdominal pain. Denies constipation or diarrhea. Patient had not voided this shift and was bladder scanned for 350 ml. No urge to void. Owen placed for more accurate I/O's and monitoring. No chest pain. No palpitations. Breathing relatively comfortably at rest with some note dyspnea with exertion and overall reduced activity tolerance. Denies significant orthopnea. Review of Systems Review of Systems: All systems reviewed & are unremarkable except as noted in HPI & below Physical Exam Constitutional: well developed; no acute distress Eyes: + anicteric sclerae; no corneal abnormality ENMT: Mouth: no oral mucosal abnormality and oral mucous membranes not dry Neck: normal visual inspection and trachea midline Respiratory: + tachypneic; no respiratory distress Auscultation: + rales Cardiovascular: Rate/Rhythm: + bradycardic Heart Sounds: normal S1 and normal S2; no gallop Vessels: + JVD Extremities: normal capillary refill and + edema Gastrointestinal (Abdomen): Inspection/Auscultation: normal bowel sounds Percussion/Palpation: abdomen soft; abdomen nontender Musculoskeletal: Extremities: no cyanosis and no clubbing Skin: + turgor decreased; no jaundice Neurologic: awake; not confused Motor/Sensory: no tremor and no asterixis Results & Data ([facility]) Vital Signs (Past 12 Hours) Vital Signs Temp Pulse Pulse Resp BP Pulse Ox 08/27/19 11:59 36.6 C 62 22 166/69 H 92 08/27/19 10:54 62 20 92 08/27/19 08:10 37.2 C 71 16 181/65 H 92 08/27/19 08:00 64 08/27/19 07:24 69 14 90 08/27/19 07:23 69 14 90 08/27/19 03:52 37.1 C 64 18 156/68 H 91 08/27/19 02:58 54 L 18 91 Laboratory Results Laboratory Results - last 24 hr 08/26/19 08/26/19 08/27/19 16:11 21:41 04:10 WBC RBC Hgb Hct MCV MCH MCHC RDW Std Deviation RDW Coeff of Nicolasa Plt Count MPV Immature Gran % (Auto) Neut % (Auto) Lymph % (Auto) [place] % (Auto) Eos % (Auto) Baso % (Auto) Immature Gran # (Auto) Neut # (Auto) Lymph # (Auto) [place] # (Auto) Eos # (Auto) Baso # (Auto) Sodium Potassium Chloride Carbon Dioxide Anion Gap BUN Creatinine Est Cr Clr Drug Dosing Est GFR ( Amer) Est GFR (Non-Af Amer) BUN/Creatinine Ratio Glucose Calcium Magnesium Total Bilirubin AST ALT Alkaline Phosphatase Troponin I 3.820 H* 3.320 H* Total Protein Albumin Globulin Albumin/Globulin Ratio Urine Color Yellow Urine Appearance Clear Urine pH 5.0 Ur Specific [place] 1.025 Urine Protein 4+ H Urine Glucose (UA) Negative Urine Ketones Negative Urine Blood Negative Urine Nitrite Negative Urine Bilirubin Negative Urine Urobilinogen Negative Ur Leukocyte Esterase Trace H Urine WBC (Auto) 10-30 H Urine RBC (Auto) 0-4 U Hyaline Cast (Auto) 1-5 U Epithel Cells (Auto) >30 H Urine Bacteria (Auto) Negative Ur Renal Epithelial Cell Not Reportable 08/27/19 08/27/19 08/27/19 06:01 06:01 11:05 WBC 8.46 RBC 3.45 L Hgb 10.2 L Hct 33.5 L MCV 97.1 MCH 29.6 MCHC 30.4 L RDW Std Deviation 53.8 H RDW Coeff of Nicolasa 15.3 H Plt Count 133 MPV 11.6 H Immature Gran % (Auto) 0.4 Neut % (Auto) 76.1 Lymph % (Auto) 14.9 [place] % (Auto) 8.4 Eos % (Auto) 0.1 Baso % (Auto) 0.1 Immature Gran # (Auto) 0.03 H Neut # (Auto) 6.44 Lymph # (Auto) 1.26 [place] # (Auto) 0.71 H Eos # (Auto) 0.01 Baso # (Auto) 0.01 Sodium 146 H 143 Potassium 5.6 H D 5.6 H Chloride 113 H 109 H Carbon Dioxide 27 28 Anion Gap 6.0 6.0 BUN 93 H 91 H Creatinine 3.76 H D 3.89 H Est Cr Clr Drug Dosing 13.1 12.6 Est GFR ( Amer) 12.1 11.6 Est GFR (Non-Af Amer) 10.4 10.0 BUN/Creatinine Ratio 24.7 H 23.4 H Glucose 107 H 143 H Calcium 8.3 L 8.3 L Magnesium 3.9 H Total Bilirubin 0.7 AST 23 ALT 14 Alkaline Phosphatase 94 Troponin I Total Protein 6.2 L D Albumin 2.8 L Globulin 3.4 Albumin/Globulin Ratio 0.8 L Urine Color Urine Appearance Urine pH Ur Specific [place] Urine Protein Urine Glucose (UA) Urine Ketones Urine Blood Urine Nitrite Urine Bilirubin Urine Urobilinogen Ur Leukocyte Esterase Urine WBC (Auto) Urine RBC (Auto) U Hyaline Cast (Auto) U Epithel Cells (Auto) Urine Bacteria (Auto) Ur Renal Epithelial Cell PG Care Time/CCT Total # of Minutes Spent Total Time Spent with Patient: Total time spent is greater than 50% in coordination of care (as documented) at patient's floor/unit and/or counseling patient: Coding Level of Care Code 82442 Subseq Hosp Care Lvl 3 Diagnoses Chronic kidney disease, stage IV (severe) N18.4 Chronic diastolic CHF (congestive heart failure) I50.32 Anemia D64.9 Pulmonary edema J81.0 Chronicity: acute Hydronephrosis of left kidney N13.30 (1) Pulmonary edema Chronicity: acute Qualified Code(s): J81.0 - Acute pulmonary edema
[2019-08-27] MEDS: AMPICILLIN/SULBACTAM SOD 3,000 MG in 0.9 % SODIUM CHLORIDE 100 ML IV SCH (14:38)
[2019-08-27] MEDS: ATORVASTATIN 40 MG TAB PO SCH (20:16)
--- NOTE | 2019-08-28 05:43 | Electrocardiogram Report ---
Test Reason : Blood Pressure : / mmHG Vent. Rate : 070 BPM Atrial Rate : 070 BPM P-R Int : 192 ms QRS Dur : 152 ms QT Int : 486 ms P-R-T Axes : 060 -66 -78 degrees QTc Int : 524 ms Normal sinus rhythm Left axis deviation Left bundle branch block Abnormal ECG When compared with ECG of 26-AUG-2019 09:46, Nonspecific T wave abnormality now evident in Inferior leads Nonspecific T wave abnormality, worse in Lateral leads Confirmed by Simon Delong [id number]) on 08/28/2019 5:43:10 AM Referred By: REFERRED SELF Confirmed By:Simon Delong
[2019-08-28] MEDS: ACETAMINOPHEN 325 MG TAB PO PRN (05:53)
[2019-08-28 06:58] LABS: Hematocrit (blood only) 31.2 % (37-47); Hemoglobin 9.7 g/dL (12.0-16.0); Mean Corpuscular Hemoglobin 30.1 pg (25-34); Mean Corpuscular Hgb Conc 31.1 g/dL (32-36); Mean Corpuscular Volume 96.9 fL (80-100); Mean Platelet Volume 11.8 fL (7.4-10.4); Platelet Count 115 K/uL (130-400); RDW Coefficient of Variation 15.3 % (11.5-14.5); RDW Standard Deviation 54.2 fL (36.4-46.3); Red Blood Count 3.22 M/uL (4.2-5.4); White Blood Count 7.78 K/uL (4.8-10.8)
[2019-08-28] MEDS: ALBUT/IPRATROP 3MG/0.5MG NEB 3 ML VIAL NEB SCH ×4 (07:15→19:03)
[2019-08-28 07:36] LABS: Albumin Level 2.8 gm/dl (3.4-5.0); BUN Creatinine Ratio 23.5 (10-20); Calcium 8.3 mg/dl (8.5-10.1); Creatinine Clr Calc Pharmacy 11.6 ml/min; Est GFR (African American) 10.7; Est GFR (Non-African American) 9.2; Potassium 5.4 mmol/L (3.5-5.1)
[2019-08-28 07:41] LABS: Ferritin 85.1 ng/ml (8-388)
[2019-08-28] MEDS: CLOPIDOGREL BISULFATE 75 MG TAB PO SCH (08:30)
[2019-08-28] MEDS: carvediloL 25 MG TAB PO SCH ×2 (08:30→21:26)
[2019-08-28] MEDS: HydrALAZINE TAB 50 MG TAB PO SCH ×3 (08:30→21:27)
[2019-08-28] MEDS ORDERED: FUROSEMIDE 40 MG in SYRINGE 0 ML IV ONE (08:30)
[2019-08-28] MEDS ORDERED: IRON SUCROSE 200 MG in 0.9 % SODIUM CHLORIDE 100 ML IV ONE (08:30)
[2019-08-28] MEDS: ISOSORBIDE MONO EXTENDED REL 60 MG TABCR PO SCH (08:30)
[2019-08-28] MEDS: ASPIRIN 81 MG ECTAB PO SCH (08:30)
[2019-08-28] MEDS: HEPARIN SOD 5,000 UNIT/0.5 ML VIAL SQ SCH ×2 (08:31→21:27)
--- NOTE | 2019-08-28 10:15 | Nephrology Progress Note ---
Date of Service August 28, 2019 Assessment & Plan (1) Chronic kidney disease, stage IV (severe): CKD IV-V A3. 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 Baseline creatinine ~3.4 mg/dL. No emergent indication for dialysis today. We discussed potential future indications in detail. Judi is agreeable to start HD if necessary. I/O's have been even. She remains volume overloaded with notable elevated PA pressures and right heart failure. I suspect we may continue to see some rise in creatinine during diuresis. I would like to increase diuretics to encourage a negative salt balance. Hopefully this will aid in management of hyperkalemia as well. Torsemide 10 mg was switched to furosemide 40 mg IV this AM. IV diuretic therapy will be adjusted as needed with a goal of net negative ~ 1 L/d. -- Document I/O's. -- Low K+ and low Na+ diet. -- Owen to gravity. -- Furosemide 40 mg IV today. Additional diuretic this afternoon, dose adjusted as needed to encourage goal of net negative ~1 L/d. -- Repeat renal profile tomorrow AM. -- Medications are currently appropriately dosed for kidney function. (2) Chronic diastolic CHF (congestive heart failure): -- Cardiology consult appreciated. Planof care discussed with cardiology this AM as well as with hospitalist. -- TTE reviewed. -- No RONY/ARB due to renal dysfunction. (3) Anemia: -- Repeat tomorrow AM -- GAMAL noted. Venofer 200 mg IV provided today. (4) Pulmonary edema: (5) Hydronephrosis of left kidney: -- Appropriate position of ureteral stent by history. Admission and Anticipated Discharge Date Admission Date: August 26, 2019 Subjective No acute events overnight. Judi feels well this morning. She denies significant dyspnea. She was sitting in a bedside chair during my evaluation. She denies any nausea. Appetite is good. Owen draining clear yellow urine. No chest pain. No palpitations. Activity tolerance remains reduced. Review of Systems Review of Systems: All systems reviewed & are unremarkable except as noted in HPI & below Physical Exam Constitutional: well developed; no acute distress Eyes: + anicteric sclerae; no corneal abnormality ENMT: Mouth: no oral mucosal abnormality and oral mucous membranes not dry Neck: normal visual inspection and trachea midline Respiratory: + tachypneic; no respiratory distress Auscultation: + rales Cardiovascular: Heart Sounds: normal S1 and normal S2; no gallop Vessels: + JVD Extremities: normal capillary refill and + edema Gastrointestinal (Abdomen): Inspection/Auscultation: normal bowel sounds Percussion/Palpation: abdomen soft; abdomen nontender Musculoskeletal: Extremities: no cyanosis and no clubbing Skin: + turgor decreased; no jaundice Neurologic: awake; not confused Motor/Sensory: no tremor and no asterixis Results & Data ([facility]) Vital Signs (Past 12 Hours) Vital Signs Temp Pulse Pulse Pulse Resp BP BP 08/28/19 07:17 37.3 C 67 19 188/68 H 197/70 H 08/28/19 07:15 69 14 08/28/19 05:49 37.7 C H 69 19 177/61 H 08/28/19 04:00 37.6 C H 65 20 173/56 H 08/28/19 03:12 60 14 08/28/19 02:24 50 L 08/28/19 00:54 48 L 08/27/19 23:19 36.7 C 52 L 20 157/68 H 08/27/19 23:06 74 16 Pulse Ox 08/28/19 07:17 95 08/28/19 07:15 94 08/28/19 05:49 93 08/28/19 04:00 91 08/28/19 03:12 98 08/28/19 02:24 08/28/19 00:54 08/27/19 23:19 96 08/27/19 23:06 96 Laboratory Results Laboratory Results - last 24 hr 08/27/19 08/28/19 08/28/19 11:05 06:19 06:19 WBC 7.78 RBC 3.22 L Hgb 9.7 L Hct 31.2 L MCV 96.9 MCH 30.1 MCHC 31.1 L RDW Std Deviation 54.2 H RDW Coeff of Nicolasa 15.3 H Plt Count 115 L MPV 11.8 H Sodium 143 141 Potassium 5.6 H 5.4 H Chloride 109 H 109 H Carbon Dioxide 28 28 Anion Gap 6.0 4.0 BUN 91 H 98 H Creatinine 3.89 H 4.16 H Est Cr Clr Drug Dosing 12.6 11.6 Est GFR ( Amer) 11.6 10.7 Est GFR (Non-Af Amer) 10.0 9.2 BUN/Creatinine Ratio 23.4 H 23.5 H Glucose 143 H 110 H Calcium 8.3 L 8.3 L Phosphorus 5.0 H Iron 35 Transferrin 179 L Transferrin % Sat 14 L Ferritin 85.1 Albumin 2.8 L PG Care Time/CCT Total # of Minutes Spent Total Time Spent with Patient: Total time spent is greater than 50% in coordination of care (as documented) at patient's floor/unit and/or counseling patient: Coding Level of Care Code 34108 Subseq Hosp Care Lvl 3 Diagnoses Chronic kidney disease, stage IV (severe) N18.4 Chronic diastolic CHF (congestive heart failure) I50.32 Anemia D64.9 Pulmonary edema J81.0 Chronicity: acute Hydronephrosis of left kidney N13.30 (1) Pulmonary edema Chronicity: acute Qualified Code(s): J81.0 - Acute pulmonary edema
[2019-08-28] MEDS: AMPICILLIN/SULBACTAM SOD 3,000 MG in 0.9 % SODIUM CHLORIDE 100 ML IV SCH (13:48)
--- NOTE | 2019-08-28 15:00 | Hospitalist Progress Note ---
Date of Service August 28, 2019 Assessment & Plan (1) Acute respiratory failure with hypoxemia: due to pulmonary edema, initially thought to have aspiration pneumonitis but this is ruled out -supplemental oxygen, breathing is not labored Chronically on 2 l oxygen, uses CPAP HS (2) Non-ST elevation NM (NSTEMI): Troponin 2.88 on admission, likely myocardial demand ischemia and less likely ACS given the hypoxia, recent nausea/vomiting With known underlying CAD, status post TOYA to the RCA x2 ECG with LBBB -Continue home aspirin, Plavix, atorvastatin, carvedilol, isosorbide, hydralazine - serial troponin did not rise -Started on heparin drip in the ER- discontinue -cardiology consultation, renal function prevents left heart cath patient stable, no chest pain or pressure (3) (HFpEF) heart failure with preserved ejection fraction: Some component of acute on chronic diastolic CHF, has small bilateral pleural effusions she has JVD, significant lower extremity edema and pulmonary rales -Only takes torsemide once a day about 4 times a week rather than the twice daily as prescribed nephrology following, recommend aggressive diuresis with Lasix IV, accept that Cr will rise -Appreciate cardiology consultation (4) Nausea & vomiting: INitially with abdominal pain, now resolved. No leukocytosis here, LFTs are normal, lipase normal. CT of the abdomen/pelvis without contrast does not show any evidence of colitis, diverticulitis, or obstruction. She did have associated periumbilical pain at the site of her hernia when it first started. Question if had a partial small bowel obstruction at that time which is now resolved. Abdominal pain completely resolved and hernia is reducible. Lactate is negative. Nausea is now improved eating well, passing flatus (5) Chronic kidney disease, stage IV (severe): Baseline creatinine used to be 2.3-2.5, but in the last month has gone up to 3.4-3.6 This did not change despite changing out her left ureteral stent 2 weeks ago with urology There is no hydronephrosis or blockage on CT abdomen/pelvis on admission history of bilateral renal cysts -Consult nephrology Cr trending up to 4 today, K high at 5.7, gave extra dose of Lasix IV, repeat BMP in the morning (6) Hypertension: Continue home meds of carvedilol, isosorbide, hydralazine, torsemide if can tolerate p.o. (7) Sleep apnea: -We will order CPAP at 3 cm H2O with 2 L oxygen connected at bedtime (8) [place]one atrial fibrillation: Many years ago, thought to be due to hypomagnesemia currently in NSR with LBBB also history of VT but no recurrence sine RVOT ablation (9) Umbilical hernia: As above, is reducible (10) Gout: No acute flare (11) Venous stasis dermatitis of both lower extremities: - (12) Thickened endometrium: Incidentally noted to be thickened on CT scan -Needs outpatient pelvic ultrasound and gynecology follow-up if desired (13) Anemia: Likely secondary to chronic kidney disease Hemoglobin fairly stable here 11.7 (14) DVT prophylaxis: transition to bid heparin sc DNR/DNI as per his discussion with patient Admission and Anticipated Discharge Date Admission Date: August 26, 2019 Subjective patient feeling better, said that she was sitting in chair all morning until 2pm she is eating well, passing flatus, no BM but abdominal pain is gone reviewed labs, Cr is up > 4 and K was minimally elevated at 5.4 d/w Dr. Nascimento, will give additional Lasix IV today, repeat BMP in the morning, Cr may continue to rise discussed with patient the prospect of HD, she is hoping she will not need it, she would be open to trying it if necessary talked with patient's son, he is concerned about the patient being at home she lives with her daughter who has intellectual disabilities so really there is no one taking care of her he is hoping she will agree to rehab/SNF but if she does not, they will work on getting hospital bed and home therapy Review of Systems Review of Systems: All systems reviewed & are unremarkable except as noted in HPI & below Constitutional: + fatigue and + weakness; no fever Respiratory: + dyspnea on exertion; no cough and no dyspnea Cardiovascular: + edema; no chest pain, no palpitations and no syncope Gastrointestinal: no abdominal pain, no nausea, no vomiting, no constipation and no diarrhea/loose stools Physical Exam Constitutional: well developed, well nourished, + overweight and + edematous; no acute distress Eyes: PERRL, conjunctivae normal, anicteric sclerae ENMT: external ear and nose normal, oropharynx normal Neck: trachea midline, no thyromegaly Respiratory: normal respiratory effort; no respiratory distress, no labored breathing and no cough Auscultation: lungs clear to auscultation bilaterally and + diminished lung sounds (bases) Cardiovascular: Rate/Rhythm: regular rate and regular rhythm Heart Sounds: normal S1 and normal S2; no murmur Vessels: + JVD Extremities: normal capillary refill and + edema (pitting to knees bilaterally) Gastrointestinal (Abdomen): normal bowel sounds, soft, nontender, no hepatosplenomegaly Musculoskeletal: no cyanosis or clubbing, extremities motor strength 5/5 Skin: no rashes, warm and dry Neurologic: patellar DTR's 2+ bilat, sensation intact and PERRL, EOMI, accommodation nl, no face palsy, no dysarthria Psychiatric: A+Ox3, euthymic affect Lymphatic: no cervical or axillary lymphadenopathy Results & Data Results & Data ([facility]) Vital Signs (Past 12 Hours) Vital Signs Temp Pulse Pulse Pulse Resp BP BP 08/28/19 12:00 36.3 C L 51 L 18 156/60 H 08/28/19 11:08 69 18 08/28/19 07:17 37.3 C 67 19 188/68 H 197/70 H 08/28/19 07:15 69 14 08/28/19 05:49 37.7 C H 69 19 177/61 H 08/28/19 04:00 37.6 C H 65 20 173/56 H 08/28/19 03:12 60 14 Pulse Ox 08/28/19 12:00 94 08/28/19 11:08 96 08/28/19 07:17 95 08/28/19 07:15 94 08/28/19 05:49 93 08/28/19 04:00 91 08/28/19 03:12 98 Laboratory Results Laboratory Results - last 24 hr 08/28/19 08/28/19 06:19 06:19 WBC 7.78 RBC 3.22 L Hgb 9.7 L Hct 31.2 L MCV 96.9 MCH 30.1 MCHC 31.1 L RDW Std Deviation 54.2 H RDW Coeff of Nicolasa 15.3 H Plt Count 115 L MPV 11.8 H Sodium 141 Potassium 5.4 H Chloride 109 H Carbon Dioxide 28 Anion Gap 4.0 BUN 98 H Creatinine 4.16 H Est Cr Clr Drug Dosing 11.6 Est GFR ( Amer) 10.7 Est GFR (Non-Af Amer) 9.2 BUN/Creatinine Ratio 23.5 H Glucose 110 H Calcium 8.3 L Phosphorus 5.0 H Iron 35 Transferrin 179 L Transferrin % Sat 14 L Ferritin 85.1 Albumin 2.8 L Medications Administered Current Inpatient Medications Acetaminophen (Tylenol) 650 mg PO Q4H PRN PRN Reason: Pain or Fever Stop: 09/25/19 16:19 Last Admin: 08/28/19 05:53 Dose: 650 mg Documented by: Albuterol (Duoneb) 3 ml NEB QIDR [facility] Stop: 09/25/19 14:59 Last Admin: 08/28/19 15:07 Dose: 3 ml Documented by: Aspirin (Ecotrin Ectab) 81 mg PO QAM [facility] Stop: 09/25/19 12:59 Last Admin: 08/28/19 08:30 Dose: 81 mg Documented by: Atorvastatin Calcium (Lipitor) 80 mg PO QPM [facility] Stop: 09/25/19 20:59 Last Admin: 08/27/19 20:16 Dose: 80 mg Documented by: Carvedilol (Coreg) 25 mg PO BID [facility] Stop: 09/25/19 12:59 Last Admin: 08/28/19 08:30 Dose: 25 mg Documented by: Clopidogrel Bisulfate (Plavix) 75 mg PO QAM [facility] Stop: 09/25/19 12:58 Last Admin: 08/28/19 08:30 Dose: 75 mg Documented by: Heparin Sodium (Porcine) (Heparin Sodium (Porcine)) 5,000 units SQ Q12 [facility] Stop: 09/26/19 08:59 Last Admin: 08/28/19 08:31 Dose: 5,000 units Documented by: Hydralazine HCl (Apresoline) 100 mg PO TID [facility] Stop: 09/25/19 13:59 Last Admin: 08/28/19 13:48 Dose: 100 mg Documented by: Ampicillin Sodium/Sulbactam Sodium 3,000 mg/ Sodium Chloride 108 mls @ 200 mls/hr IV Q24H [facility]; Protocol Stop: 08/28/19 23:59 Last Infusion: 08/28/19 14:25 Dose: Infused Documented by: Promethazine HCl 6.25 mg/ (Sodium Chloride) 50.25 mls @ 201 mls/hr IV Q6H PRN PRN Reason: Nausea And Vomiting Stop: 09/25/19 16:19 Isosorbide Mononitrate (Imdur Extended Rel) 60 mg PO QAM [facility] Stop: 09/25/19 12:59 Last Admin: 08/28/19 08:30 Dose: 60 mg Documented by: Miscellaneous Information (Ampicillin/Sulbactam Consult) 1 ea N/A UD PRN PRN Reason: Consult Stop: 09/25/19 15:31 Nitroglycerin (Nitrostat) 0.4 mg SL UD PRN PRN Reason: Chest Pain Stop: 09/25/19 16:19 Torsemide (Demadex) 10 mg PO BID [facility] Stop: 09/25/19 13:34 Last Admin: 08/27/19 20:16 Dose: 10 mg Documented by: PG Care Time/CCT Total # of Minutes Spent Total Time Spent with Patient: Total time spent is greater than 50% in coordination of care (as documented) at patient's floor/unit and/or counseling patient: Coding Level of Care Code 67572 Subseq Hosp Care Lvl 3 Diagnoses Acute respiratory failure with hypoxemia J96.01 Non-ST elevation NM (NSTEMI) I21.4 (HFpEF) heart failure with preserved ejection fraction I50.30 Nausea & vomiting R11.2 Vomiting Intractability: non-intractable Vomiting type: unspecified Chronic kidney disease, stage IV (severe) N18.4 Hypertension I10 Sleep apnea G47.30 Lone atrial fibrillation I48.91 Umbilical hernia K42.9 Gout M10.9 Venous stasis dermatitis of both lower extremities I87.2 Thickened endometrium R93.89 Anemia D64.9 DVT prophylaxis Z29.9 (1) Nausea & vomiting Vomiting Intractability: non-intractable Vomiting type: unspecified Qualified Code(s): R11.2 - Nausea with vomiting, unspecified
--- NOTE | 2019-08-28 17:02 | Cardiology Progress Note ---
Date of Service August 28, 2019 Assessment & Plan (1) CAD (coronary artery disease), [place] coronary artery: -mild troponin leak, new apical akinesis. -conservative medical care. -history of IPMI, RCA stents February 2012. (2) Chronic diastolic CHF (congestive heart failure): -still hypervolemic. -currently receiving Lasix 80 mg IV x1 per Dr. Nascimento. -current echocardiogram still notes preserved LV function. (3) Hypertension: -adequate control on current regimen. (4) Lone atrial fibrillation: -solitary event occurred in December 2013 when she had electrolyte imbalance. Not on long-term anticoagulation at this time. Admission and Anticipated Discharge Date Admission Date: August 26, 2019 Subjective This is also resting comfortably in the bedside chair without complaints of chest pain or dyspnea. She is anxious for hospital discharge. Physical Exam Physical Exam: In general this is an obese white female in no acute distress. HEENT exam is negative. Neck is supple with full carotid upstrokes. There are no carotid bruits. No jugular venous distention. There is no thyromegaly. Cardiovascular exam reveals a regular rhythm with a normal S1 and S2. No S3, S4, or murmurs are noted. Lungs are clear without rales, rhonchi, or wheezes. Abdomen is benign without bruits. Extremities reveal intact radial artery pulses bilaterally. There is 1-2+ nonpitting edema of the left lower extremity, 1+ on the right. Results & Data ([facility]) Vital Signs (Past 12 Hours) Vital Signs Temp Pulse Resp BP BP Pulse Ox 08/28/19 16:15 36.4 C L 57 L 16 156/67 H 96 08/28/19 15:08 65 14 96 08/28/19 12:00 36.3 C L 51 L 18 156/60 H 94 08/28/19 11:08 69 18 96 08/28/19 07:17 37.3 C 67 19 188/68 H 197/70 H 95 08/28/19 07:15 69 14 94 08/28/19 05:49 37.7 C H 69 19 177/61 H 93 PG Care Time/CCT Total # of Minutes Spent Total Time Spent with Patient: Total time spent is greater than 50% in coordination of care (as documented) at patient's floor/unit and/or counseling patient: Coding Level of Care Code 36720 Subseq Hosp Care Lvl 3 Diagnoses CAD (coronary artery disease), [place] coronary artery I25.10 Chronic diastolic CHF (congestive heart failure) I50.32 Hypertension I10 Lone atrial fibrillation I48.91
[2019-08-28] MEDS ORDERED: FUROSEMIDE 80 MG in SYRINGE 0 ML IV ONE (17:15)
[2019-08-28] MEDS: ATORVASTATIN 40 MG TAB PO SCH (21:26)
[2019-08-29 06:50] LABS: Albumin Level 2.5 gm/dl (3.4-5.0); BUN Creatinine Ratio 24.6 (10-20); Calcium 8.1 mg/dl (8.5-10.1); Creatinine Clr Calc Pharmacy 11.4 ml/min; Est GFR (African American) 10.5; Est GFR (Non-African American) 9.1; Phosphorus 4.9 mg/dl (2.5-4.9); Potassium 5.1 mmol/L (3.5-5.1)
[2019-08-29] MEDS: ALBUT/IPRATROP 3MG/0.5MG NEB 3 ML VIAL NEB SCH ×3 (06:53→15:19)
[2019-08-29] MEDS: carvediloL 25 MG TAB PO SCH ×2 (07:51→21:29)
[2019-08-29] MEDS: ISOSORBIDE MONO EXTENDED REL 60 MG TABCR PO SCH (07:51)
[2019-08-29] MEDS: ASPIRIN 81 MG ECTAB PO SCH (07:52)
[2019-08-29] MEDS: HydrALAZINE TAB 50 MG TAB PO SCH ×3 (07:52→21:29)
[2019-08-29] MEDS: HEPARIN SOD 5,000 UNIT/0.5 ML VIAL SQ SCH ×2 (07:52→21:29)
[2019-08-29] MEDS: CLOPIDOGREL BISULFATE 75 MG TAB PO SCH (07:52)
[2019-08-29] MEDS: IRON SUCROSE 200 MG in 0.9 % SODIUM CHLORIDE 100 ML IV SCH (09:02)
--- NOTE | 2019-08-29 09:14 | Nephrology Progress Note ---
Date of Service August 29, 2019 Assessment & Plan (1) Chronic kidney disease, stage IV (severe): CKD IV-V A3. 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 Baseline creatinine ~3.4 mg/dL. No emergent indication for dialysis today. We reviewed potential future indications in detail. Remains volume overload with adequate response to furosemide 120 mg net yesterday. Will provide an additional 80 mg IV this AM. Goal is to continue to maintain a negative fluid balance of approximately 1 L/d. I suspect we may continue to see some rise in creatinine during diuresis. H -- Document I/O's -- Low K+ and low Na+ diet -- Owen to gravity for now but may consider removal -- Furosemide 80 mg IV today -- Repeat renal profile tomorrow AM -- Medications are currently appropriately dosed for kidney function (2) Chronic diastolic CHF (congestive heart failure): -- Cardiology consult appreciated. Plan of care discussed with Dr. Lopez this AM -- TTE reviewed -- No RONY/ARB due to renal dysfunction (3) Anemia: -- Venofer 200 mg IV daily x 5 ordered, first dose 08/28/19 (4) Pulmonary edema: (5) Hydronephrosis of left kidney: -- Appropriate position of ureteral stent by history Admission and Anticipated Discharge Date Admission Date: August 26, 2019 Subjective No acute events overnight. Resting comfortably in bedside chair. No dyspnea at rest. Denies difficulty breathing. Owen draining clear yellow urine. No fevers or chills. No chest pain or palpitations. Net negative 1.1 L in past 24 hours. Weight 97.5-->96.5 kg. Furosemide 40 mg x 1 and 80 mg x 1 provided in last 24 hours. Review of Systems Review of Systems: All systems reviewed & are unremarkable except as noted in HPI & below Physical Exam Constitutional: well developed; no acute distress Eyes: + anicteric sclerae; no corneal abnormality ENMT: Mouth: no oral mucosal abnormality and oral mucous membranes not dry Neck: normal visual inspection and trachea midline Respiratory: normal respiratory effort Auscultation: + rales Cardiovascular: Rate/Rhythm: regular rate Heart Sounds: normal S1 and normal S2; no gallop Vessels: + JVD Extremities: normal capillary refill and + edema Gastrointestinal (Abdomen): Inspection/Auscultation: normal bowel sounds Percussion/Palpation: abdomen soft; abdomen nontender Musculoskeletal: Extremities: no cyanosis and no clubbing Skin: + turgor decreased; no jaundice Neurologic: awake; not confused Motor/Sensory: no tremor and no asterixis Results & Data ([facility]) Vital Signs (Past 12 Hours) Vital Signs Temp Pulse Pulse Resp BP Pulse Ox 08/29/19 07:58 36.5 C 67 18 178/64 H 96 08/29/19 06:56 65 18 94 08/29/19 03:57 36.4 C L 63 18 161/70 H 92 08/29/19 03:41 63 18 92 08/29/19 00:23 36.5 C 63 16 146/65 H 93 08/28/19 22:47 59 L 18 93 Laboratory Results Laboratory Results - last 24 hr 08/29/19 06:11 Sodium 140 Potassium 5.1 Chloride 107 Carbon Dioxide 29 Anion Gap 4.0 BUN 104 H Creatinine 4.22 H Est Cr Clr Drug Dosing 11.4 Est GFR ( Amer) 10.5 Est GFR (Non-Af Amer) 9.1 BUN/Creatinine Ratio 24.6 H Glucose 86 Calcium 8.1 L Phosphorus 4.9 Albumin 2.5 L PG Care Time/CCT Total # of Minutes Spent Total Time Spent with Patient: Total time spent is greater than 50% in coordination of care (as documented) at patient's floor/unit and/or counseling patient: Coding Level of Care Code 45039 Subseq Hosp Care Lvl 3 Diagnoses Chronic kidney disease, stage IV (severe) N18.4 Chronic diastolic CHF (congestive heart failure) I50.32 Anemia D64.9 Pulmonary edema J81.0 Chronicity: acute Hydronephrosis of left kidney N13.30 (1) Pulmonary edema Chronicity: acute Qualified Code(s): J81.0 - Acute pulmonary edema
[2019-08-29] MEDS ORDERED: FUROSEMIDE 80 MG in SYRINGE 0 ML IV SCH (09:15)
--- NOTE | 2019-08-29 10:07 | Cardiology Progress Note ---
Date of Service August 29, 2019 Assessment & Plan (1) CAD (coronary artery disease), [place] coronary artery: -mild troponin leak (3.8), new apical akinesis. -suspect supply demand mismatch. -conservative medical care. -history of IPMI, RCA stents x2, February 2012. (2) Chronic diastolic CHF (congestive heart failure): -hypervolemic on physical exam. -will receive another dose of Lasix 80 mg IV x1 per Dr. Nascimento. -preserved LV function on current echocardiogram. (3) Hypertension: -adequate control on current medical regimen. (4) Lone atrial fibrillation: -solitary event occurred in December 2013 when she had an electrolyte abnormality. -not on long-term anticoagulation at this time. Admission and Anticipated Discharge Date Admission Date: August 26, 2019 Subjective The patient is resting comfortably in the bedside chair without complaints of chest pain or dyspnea. Physical Exam Physical Exam: In general this is an obese white female in no acute distress. HEENT exam is negative. Neck is supple with full carotid upstrokes. There are no carotid bruits. No jugular venous distention. There is no thyromegaly. Cardiovascular exam reveals a regular rhythm with a normal S1 and S2. No S3, S4, or murmurs are noted. Lungs are clear without rales, rhonchi, or wheezes. Abdomen is benign without bruits. Extremities reveal intact radial artery pulses bilaterally. There is 1-2+ nonpitting edema of the left lower extremity, 1+ on the right. Results & Data ([facility]) Vital Signs (Past 12 Hours) Vital Signs Temp Pulse Pulse Resp BP Pulse Ox 08/29/19 07:58 36.5 C 67 18 178/64 H 96 08/29/19 06:56 65 18 94 08/29/19 03:57 36.4 C L 63 18 161/70 H 92 08/29/19 03:41 63 18 92 08/29/19 00:23 36.5 C 63 16 146/65 H 93 08/28/19 22:47 59 L 18 93 PG Care Time/CCT Total # of Minutes Spent Total Time Spent with Patient: Total time spent is greater than 50% in coordination of care (as documented) at patient's floor/unit and/or counseling patient: Coding Level of Care Code 76928 Subseq Hosp Care Lvl 3 Diagnoses CAD (coronary artery disease), [place] coronary artery I25.10 Chronic diastolic CHF (congestive heart failure) I50.32 Hypertension I10 Lone atrial fibrillation I48.91
[2019-08-29] MEDS: ATORVASTATIN 40 MG TAB PO SCH (21:28)
--- NOTE | 2019-08-29 22:39 | Hospitalist Progress Note ---
Date of Service August 29, 2019 Assessment & Plan (1) Acute respiratory failure with hypoxemia: due to pulmonary edema, initially thought to have aspiration pneumonitis but this is ruled out -supplemental oxygen, breathing is not labored Chronically on 2 l oxygen, uses CPAP HS acute component appears to be resolved (2) Non-ST elevation NE (NSTEMI): Troponin 2.88 on admission, likely myocardial demand ischemia and less likely ACS given the hypoxia, recent nausea/vomiting With known underlying CAD, status post TOYA to the RCA x2 ECG with LBBB -Continue home aspirin, Plavix, atorvastatin, carvedilol, isosorbide, hydralazine - serial troponin did not rise -Started on heparin drip in the ER- discontinue -cardiology consultation, renal function prevents left heart cath patient stable, no chest pain or pressure (3) (HFpEF) heart failure with preserved ejection fraction: Some component of acute on chronic diastolic CHF, has small bilateral pleural effusions she has JVD, significant lower extremity edema and pulmonary rales -Only takes torsemide once a day about 4 times a week rather than the twice daily as prescribed nephrology following, recommend aggressive diuresis with Lasix IV, accept that Cr will rise Cr up to 4.22 today may be headed towards needed HD for volume control, no emergent need at this time -Appreciate cardiology consultation (4) Nausea & vomiting: INitially with abdominal pain, now resolved. No leukocytosis here, LFTs are normal, lipase normal. CT of the abdomen/pelvis without contrast does not show any evidence of colitis, diverticulitis, or obstruction. She did have associated periumbilical pain at the site of her hernia when it first started. Question if had a partial small bowel obstruction at that time which is now resolved. Abdominal pain completely resolved and hernia is reducible. Lactate is negative. Nausea is now improved eating well, passing flatus (5) Chronic kidney disease, stage IV (severe): Baseline creatinine used to be 2.3-2.5, but in the last month has gone up to 3.4-3.6 This did not change despite changing out her left ureteral stent 2 weeks ago with urology There is no hydronephrosis or blockage on CT abdomen/pelvis on admission history of bilateral renal cysts -Consult nephrology now appears to have VIVIAN on CKD stage IV Cr trending up to 4.22 today, K down to 5.1, repeat BMP in the morning (6) Hypertension: Continue home meds of carvedilol, isosorbide, hydralazine, torsemide if can tolerate p.o. (7) Sleep apnea: -We will order CPAP at 3 cm H2O with 2 L oxygen connected at bedtime (8) Lone atrial fibrillation: Many years ago, thought to be due to hypomagnesemia currently in NSR with LBBB also history of VT but no recurrence sine RVOT ablation (9) Umbilical hernia: As above, is reducible (10) Gout: No acute flare (11) Venous stasis dermatitis of both lower extremities: - (12) Thickened endometrium: Incidentally noted to be thickened on CT scan -Needs outpatient pelvic ultrasound and gynecology follow-up if desired (13) Anemia: Likely secondary to chronic kidney disease Hemoglobin fairly stable here 11.7 (14) DVT prophylaxis: transition to bid heparin sc DNR/DNI as per his discussion with patient Admission and Anticipated Discharge Date Admission Date: August 26, 2019 Subjective patient feeling fine today, no distress, she was able to be OOB in chair for a few hours eating well, no chest pain/pressure, no nausea reviewed labs, CR is trending up to 4.22 and K is 5.[address] Nascimento, will give additional 80mg of IV Lasix, repeat BMP tomorrow discussed possibility of HD with patient, she understands, certainly no indication for HD today Review of Systems Review of Systems: All systems reviewed & are unremarkable except as noted in HPI & below Constitutional: + fatigue and + weakness Respiratory: no cough and no dyspnea Cardiovascular: + edema; no chest pain Physical Exam Constitutional: well developed, well nourished, + overweight and + edematous; no acute distress Eyes: PERRL, conjunctivae normal, anicteric sclerae ENMT: external ear and nose normal, oropharynx normal Neck: trachea midline, no thyromegaly Respiratory: normal respiratory effort; no respiratory distress, no labored breathing and no cough Auscultation: lungs clear to auscultation bilaterally and + diminished lung sounds (bases) Cardiovascular: Rate/Rhythm: regular rate and regular rhythm Heart Sounds: normal S1 and normal S2; no murmur Vessels: + JVD Extremities: normal capillary refill and + edema (pitting to knees bilaterally) Gastrointestinal (Abdomen): normal bowel sounds, soft, nontender, no hepatosplenomegaly Musculoskeletal: no cyanosis or clubbing, extremities motor strength 5/5 Skin: no rashes, warm and dry Neurologic: patellar DTR's 2+ bilat, sensation intact and PERRL, EOMI, accommodation nl, no face palsy, no dysarthria Psychiatric: A+Ox3, euthymic affect Lymphatic: no cervical or axillary lymphadenopathy Results & Data Results & Data ([facility]) Vital Signs (Past 12 Hours) Vital Signs Temp Pulse Pulse Resp BP BP Pulse Ox 08/29/19 22:05 66 16 95 08/29/19 20:02 37.3 C 65 21 147/68 H 94 08/29/19 15:58 36.8 C 68 18 153/58 H 95 08/29/19 15:22 70 18 94 08/29/19 11:35 36.5 C 61 18 175/62 H 96 08/29/19 10:50 77 18 97 Laboratory Results Laboratory Results - last 24 hr 08/29/19 06:11 Sodium 140 Potassium 5.1 Chloride 107 Carbon Dioxide 29 Anion Gap 4.0 BUN 104 H Creatinine 4.22 H Est Cr Clr Drug Dosing 11.4 Est GFR ( Amer) 10.5 Est GFR (Non-Af Amer) 9.1 BUN/Creatinine Ratio 24.6 H Glucose 86 Calcium 8.1 L Phosphorus 4.9 Albumin 2.5 L Medications Administered Current Inpatient Medications Acetaminophen (Tylenol) 650 mg PO Q4H PRN PRN Reason: Pain or Fever Stop: 09/25/19 16:19 Last Admin: 08/28/19 05:53 Dose: 650 mg Documented by: Aspirin (Ecotrin Ectab) [facility] [place]: 09/25/19 12:59 Last Admin: 08/29/19 07:52 Dose: 81 mg Documented by: Atorvastatin Calcium (Lipitor) 80 mg PO QPM [facility] Stop: 09/25/19 20:59 Last Admin: 08/29/19 21:28 Dose: 80 mg Documented by: Carvedilol (Coreg) 25 mg PO BID [facility] Stop: 09/25/19 12:59 Last Admin: 08/29/19 21:29 Dose: 25 mg Documented by: Clopidogrel Bisulfate (Plavix) 75 mg PO QAM [facility] Stop: 09/25/19 12:58 Last Admin: 08/29/19 07:52 Dose: 75 mg Documented by: Heparin Sodium (Porcine) (Heparin Sodium (Porcine)) 5,000 units SQ Q12 [facility] Stop: 09/26/19 08:59 Last Admin: 08/29/19 21:29 Dose: 5,000 units Documented by: Hydralazine HCl (Apresoline) 100 mg PO TID [facility] Stop: 09/25/19 13:59 Last Admin: 08/29/19 21:29 Dose: 100 mg Documented by: Promethazine HCl 6.25 mg/ (Sodium Chloride) 50.25 mls @ 201 mls/hr IV Q6H PRN PRN Reason: Nausea And Vomiting Stop: 09/25/19 16:19 Iron Sucrose 200 mg/ Sodium (Chloride) 110 mls @ 220 mls/hr IV DAILY [facility] Stop: 09/01/19 09:29 Last Infusion: 08/29/19 09:44 Dose: Infused Documented by: Isosorbide Mononitrate (Imdur Extended Rel) 60 mg PO QAM [facility] Stop: 09/25/19 12:59 Last Admin: 08/29/19 07:51 Dose: 60 mg Documented by: Nitroglycerin (Nitrostat) 0.4 mg SL UD PRN PRN Reason: Chest Pain Stop: 09/25/19 16:19 Torsemide (Demadex) 10 mg PO BID [facility] Stop: 09/25/19 13:34 Last Admin: 08/27/19 20:16 Dose: 10 mg Documented by: PG Care Time/CCT Total # of Minutes Spent Total Time Spent with Patient: Total time spent is greater than 50% in coordination of care (as documented) at patient's floor/unit and/or counseling patient: Coding Level of Care Code 38374 Subseq Hosp Care Lvl 2 Diagnoses Acute respiratory failure with hypoxemia J96.01 Non-ST elevation NE (NSTEMI) I21.4 (HFpEF) heart failure with preserved ejection fraction I50.30 Nausea & vomiting R11.2 Vomiting Intractability: non-intractable Vomiting type: unspecified Chronic kidney disease, stage IV (severe) N18.4 Hypertension I10 Sleep apnea G47.30 Lone atrial fibrillation I48.91 Umbilical hernia K42.9 Gout M10.9 Venous stasis dermatitis of both lower extremities I87.2 Thickened endometrium R93.89 Anemia D64.9 DVT prophylaxis Z29.9 (1) Nausea & vomiting Vomiting Intractability: non-intractable Vomiting type: unspecified Qualified Code(s): R11.2 - Nausea with vomiting, unspecified
[2019-08-30 07:20] LABS: Hematocrit (blood only) 32.7 % (37-47); Hemoglobin 9.8 g/dL (12.0-16.0); Mean Corpuscular Hemoglobin 28.9 pg (25-34); Mean Corpuscular Volume 96.5 fL (80-100); Mean Platelet Volume 11.5 fL (7.4-10.4); Platelet Count 127 K/uL (130-400); RDW Coefficient of Variation 15.2 % (11.5-14.5); RDW Standard Deviation 53.2 fL (36.4-46.3); Red Blood Count 3.39 M/uL (4.2-5.4); White Blood Count 9.78 K/uL (4.8-10.8)
[2019-08-30 07:48] LABS: Albumin Level 2.4 gm/dl (3.4-5.0); BUN Creatinine Ratio 24.8 (10-20); Calcium 7.7 mg/dl (8.5-10.1); Creatinine Clr Calc Pharmacy 11.2 ml/min; Est GFR (African American) 10.8; Est GFR (Non-African American) 9.3; Potassium 5.1 mmol/L (3.5-5.1)
[2019-08-30 07:56] LABS: Phosphorus 4.3 mg/dl (2.5-4.9)
[2019-08-30] MEDS ORDERED: FUROSEMIDE 80 MG in SYRINGE 0 ML IV ONE (08:30)
[2019-08-30] MEDS: IRON SUCROSE 200 MG in 0.9 % SODIUM CHLORIDE 100 ML IV SCH (08:50)
[2019-08-30] MEDS: ACETAMINOPHEN 325 MG TAB PO PRN ×2 (08:51→17:14)
[2019-08-30] MEDS: carvediloL 25 MG TAB PO SCH ×2 (08:52→20:19)
[2019-08-30] MEDS: HEPARIN SOD 5,000 UNIT/0.5 ML VIAL SQ SCH ×2 (08:52→20:19)
[2019-08-30] MEDS: CLOPIDOGREL BISULFATE 75 MG TAB PO SCH (08:53)
[2019-08-30] MEDS: HydrALAZINE TAB 50 MG TAB PO SCH ×3 (08:53→20:19)
[2019-08-30] MEDS: ISOSORBIDE MONO EXTENDED REL 60 MG TABCR PO SCH (08:53)
[2019-08-30] MEDS: ASPIRIN 81 MG ECTAB PO SCH (08:53)
--- NOTE | 2019-08-30 09:18 | Nephrology Progress Note ---
Date of Service August 30, 2019 Assessment & Plan (1) Chronic kidney disease, stage IV (severe): CKD IV-V A3. 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 Baseline creatinine ~3.4 mg/dL. No emergent indication for dialysis today. Net negative ~1.3 L in past 24 hours with furosemide 80 mg IV x 1 dose ye . Additional 80 mg IV provided this AM. -- Document I/O's -- Low K+ and low Na+ diet -- Once patient is more mobile, may remove Owen catheter -- Furosemide 80 mg IV today -- Repeat renal profile tomorrow AM -- Medications are currently appropriately dosed for kidney function (2) Chronic diastolic CHF (congestive heart failure): -- Cardiology following -- No RONY/ARB due to renal dysfunction (3) Anemia: -- Venofer 200 mg IV daily x 5 ordered, first dose 08/28/19 (4) Pulmonary edema: (5) Hydronephrosis of left kidney: -- Appropriate position of ureteral stent by history Admission and Anticipated Discharge Date Admission Date: August 26, 2019 Subjective No acute events overnight. Feeling very tired today. Resting comfortably in bed. Slept well. No fevers. Remains on supplemental O2. Review of Systems Review of Systems: All systems reviewed & are unremarkable except as noted in HPI & below Physical Exam Constitutional: well developed; no acute distress Eyes: + anicteric sclerae; no corneal abnormality ENMT: Mouth: no oral mucosal abnormality and oral mucous membranes not dry Neck: normal visual inspection and trachea midline Respiratory: normal respiratory effort Auscultation: + rales Cardiovascular: Rate/Rhythm: regular rate Heart Sounds: normal S1 and normal S2; no gallop Vessels: + JVD Extremities: normal capillary refill and + edema Gastrointestinal (Abdomen): Inspection/Auscultation: normal bowel sounds Percussion/Palpation: abdomen soft; abdomen nontender Musculoskeletal: Extremities: no cyanosis and no clubbing Skin: + turgor decreased; no jaundice Neurologic: awake; not confused Motor/Sensory: no tremor and no asterixis Results & Data ([facility]) Vital Signs (Past 12 Hours) Vital Signs Temp Pulse Pulse Resp BP BP Pulse Ox 08/30/19 06:51 37.6 C H 67 19 169/65 H 94 08/30/19 03:15 65 16 95 08/30/19 02:56 36.8 C 65 17 164/63 H 95 08/30/19 00:07 62 08/29/19 23:44 36.8 C 66 18 137/63 94 08/29/19 22:05 66 16 95 Laboratory Results Laboratory Results - last 24 hr 08/30/19 08/30/19 06:58 06:58 WBC 9.78 RBC 3.39 L Hgb 9.8 L Hct 32.7 L MCV 96.5 MCH 28.9 MCHC 30.0 L RDW Std Deviation 53.2 H RDW Coeff of Nicolasa 15.2 H Plt Count 127 L MPV 11.5 H Sodium 142 Potassium 5.1 Chloride 109 H Carbon Dioxide 28 Anion Gap 5.0 BUN 103 H Creatinine 4.13 H Est Cr Clr Drug Dosing 11.2 Est GFR ( Amer) 10.8 Est GFR (Non-Af Amer) 9.3 BUN/Creatinine Ratio 24.8 H Glucose 109 H Calcium 7.7 L Phosphorus 4.3 Albumin 2.4 L PG Care Time/CCT Total # of Minutes Spent Total Time Spent with Patient: Total time spent is greater than 50% in coordination of care (as documented) at patient's floor/unit and/or counseling patient: Coding Level of Care Code 06156 Subseq Hosp Care Lvl 3 Diagnoses Chronic kidney disease, stage IV (severe) N18.4 Chronic diastolic CHF (congestive heart failure) I50.32 Anemia D64.9 Pulmonary edema J81.0 Chronicity: acute Hydronephrosis of left kidney N13.30 (1) Pulmonary edema Chronicity: acute Qualified Code(s): J81.0 - Acute pulmonary edema
--- NOTE | 2019-08-30 11:06 | Hospitalist Progress Note ---
Date of Service August 30, 2019 Assessment & Plan (1) Acute respiratory failure with hypoxemia: due to pulmonary edema, initially thought to have aspiration pneumonitis but this is ruled out -supplemental oxygen, breathing is not labored Chronically on 2 l oxygen, uses CPAP HS acute component appears to be resolved (2) Non-ST elevation MS (NSTEMI): Troponin 2.88 on admission, likely myocardial demand ischemia and less likely ACS given the hypoxia, recent nausea/vomiting With known underlying CAD, status post TOYA to the RCA x2 ECG with LBBB -Continue home aspirin, Plavix, atorvastatin, carvedilol, isosorbide, hydralazine - serial troponin did not rise -Started on heparin drip in the ER- discontinue -cardiology consultation, renal function prevents left heart cath patient stable, no chest pain or pressure (3) (HFpEF) heart failure with preserved ejection fraction: Some component of acute on chronic diastolic CHF, has small bilateral pleural effusions she has JVD, significant lower extremity edema and pulmonary rales -Only takes torsemide once a day about 4 times a week rather than the twice daily as prescribed nephrology following, recommend aggressive diuresis with Lasix IV, accept that Cr will rise Cr down to 4.1 today may be headed towards needed HD for volume control, no emergent need at this time -Appreciate cardiology consultation (4) Nausea & vomiting: INitially with abdominal pain, now resolved. No leukocytosis here, LFTs are normal, lipase normal. CT of the abdomen/pelvis without contrast does not show any evidence of colitis, diverticulitis, or obstruction. She did have associated periumbilical pain at the site of her hernia when it first started. Question if had a partial small bowel obstruction at that time which is now resolved. Abdominal pain completely resolved and hernia is reducible. Lactate is negative. Nausea is now improved eating well, passing flatus, still no BM, she is refusing laxative (5) Chronic kidney disease, stage IV (severe): Baseline creatinine used to be 2.3-2.5, but in the last month has gone up to 3.4-3.6 This did not change despite changing out her left ureteral stent 2 weeks ago with urology There is no hydronephrosis or blockage on CT abdomen/pelvis on admission history of bilateral renal cysts -Consult nephrology now appears to have VIVIAN on CKD stage IV Cr trending up to 4.22 yesterday, down to 4.1 today, K is normal at 5.1 continue with Lasix, repeat BMP in the morning (6) Hypertension: Continue home meds of carvedilol, isosorbide, hydralazine (7) Sleep apnea: -We will order CPAP at 3 cm H2O with 2 L oxygen connected at bedtime (8) Lone atrial fibrillation: Many years ago, thought to be due to hypomagnesemia currently in NSR with LBBB also history of VT but no recurrence sine RVOT ablation (9) Umbilical hernia: As above, is reducible (10) Gout: No acute flare (11) Venous stasis dermatitis of both lower extremities: - (12) Thickened endometrium: Incidentally noted to be thickened on CT scan -Needs outpatient pelvic ultrasound and gynecology follow-up if desired (13) Anemia: Likely secondary to chronic kidney disease Hemoglobin fairly stable here (14) DVT prophylaxis: transition to bid heparin sc DNR/DNI as per his discussion with patient Plan: try to convince patient of rehab needs, PT/OT ordered son hopes she will go to rehab for 1-2 weeks to get stronger prior to returning home at home she sits/sleeps in her recliner, does not do much Admission and Anticipated Discharge Date Admission Date: August 26, 2019 Subjective patient breathing fine, eating well, + flatus, no BM edema is improving but still very significant spoke with her son, hoping she will agree to short term rehab, PT/OT ordered reviewed labs, Cr stable at 4.1, K normal discussed case with Dr. Nascimento and Dr. Lopez, appreciate their input Review of Systems Review of Systems: All systems reviewed & are unremarkable except as noted in HPI & below Constitutional: + fatigue and + weakness; no fever Respiratory: + dyspnea on exertion; no cough and no dyspnea Cardiovascular: + edema; no chest pain Gastrointestinal: + constipation Physical Exam Constitutional: well developed, well nourished, + overweight and + edematous; no acute distress Eyes: PERRL, conjunctivae normal, anicteric sclerae ENMT: external ear and nose normal, oropharynx normal Neck: trachea midline, no thyromegaly Respiratory: normal respiratory effort; no respiratory distress, no labored breathing and no cough Auscultation: lungs clear to auscultation bilaterally and + diminished lung sounds (bases) Cardiovascular: Rate/Rhythm: regular rate and regular rhythm Heart Sounds: normal S1 and normal S2; no murmur Vessels: + JVD Extremities: normal capillary refill and + edema (pitting to knees bilaterally) Gastrointestinal (Abdomen): normal bowel sounds, soft, nontender, no hepatosplenomegaly Musculoskeletal: no cyanosis or clubbing, extremities motor strength 5/5 Skin: no rashes, warm and dry Neurologic: patellar DTR's 2+ bilat, sensation intact and PERRL, EOMI, accommodation nl, no face palsy, no dysarthria Psychiatric: A+Ox3, euthymic affect Lymphatic: no cervical or axillary lymphadenopathy Results & Data Results & Data ([facility]) Vital Signs (Past 12 Hours) Vital Signs Temp Pulse Pulse Resp BP BP Pulse Ox 08/30/19 06:51 37.6 C H 67 19 169/65 H 94 08/30/19 03:15 65 16 95 08/30/19 02:56 36.8 C 65 17 164/63 H 95 08/30/19 00:07 62 08/29/19 23:44 36.8 C 66 18 137/63 94 Laboratory Results Laboratory Results - last 24 hr 08/30/19 08/30/19 06:58 06:58 WBC 9.78 RBC 3.39 L Hgb 9.8 L Hct 32.7 L MCV 96.5 MCH 28.9 MCHC 30.0 L RDW Std Deviation 53.2 H RDW Coeff of Nicolasa 15.2 H Plt Count 127 L MPV 11.5 H Sodium 142 Potassium 5.1 Chloride 109 H Carbon Dioxide 28 Anion Gap 5.0 BUN 103 H Creatinine 4.13 H Est Cr Clr Drug Dosing 11.2 Est GFR ( Amer) 10.8 Est GFR (Non-Af Amer) 9.3 BUN/Creatinine Ratio 24.8 H Glucose 109 H Calcium 7.7 L Phosphorus 4.3 Albumin 2.4 L Medications Administered Current Inpatient Medications Acetaminophen (Tylenol) 650 mg PO Q4H PRN PRN Reason: Pain or Fever Stop: 09/25/19 16:19 Last Admin: 08/30/19 08:51 Dose: 650 mg Documented by: Aspirin (Ecotrin Ectab) [facility] [place]: 09/25/19 12:59 Last Admin: 08/30/19 08:53 Dose: 81 mg Documented by: Atorvastatin Calcium (Lipitor) 80 mg PO QPM [facility] Stop: 09/25/19 20:59 Last Admin: 08/29/19 21:28 Dose: 80 mg Documented by: Carvedilol (Coreg) 25 mg PO BID [facility] Stop: 09/25/19 12:59 Last Admin: 08/30/19 08:52 Dose: 25 mg Documented by: Clopidogrel Bisulfate (Plavix) 75 mg PO QAM [facility] Stop: 09/25/19 12:58 Last Admin: 08/30/19 08:53 Dose: 75 mg Documented by: Heparin Sodium (Porcine) (Heparin Sodium (Porcine)) 5,000 units SQ Q12 [facility] Stop: 09/26/19 08:59 Last Admin: 08/30/19 08:52 Dose: 5,000 units Documented by: Hydralazine HCl (Apresoline) 100 mg PO TID [facility] Stop: 09/25/19 13:59 Last Admin: 08/30/19 08:53 Dose: 100 mg Documented by: Promethazine HCl 6.25 mg/ (Sodium Chloride) 50.25 mls @ 201 mls/hr IV Q6H PRN PRN Reason: Nausea And Vomiting Stop: 09/25/19 16:19 Iron Sucrose 200 mg/ Sodium (Chloride) 110 mls @ 220 mls/hr IV DAILY [facility] Stop: 09/01/19 09:29 Last Infusion: 08/30/19 09:45 Dose: Infused Documented by: Isosorbide Mononitrate (Imdur Extended Rel) 60 mg PO QAM [facility] Stop: 09/25/19 12:59 Last Admin: 08/30/19 08:53 Dose: 60 mg Documented by: Nitroglycerin (Nitrostat) 0.4 mg SL UD PRN PRN Reason: Chest Pain Stop: 09/25/19 16:19 Torsemide (Demadex) 10 mg PO BID [facility] Stop: 09/25/19 13:34 Last Admin: 08/27/19 20:16 Dose: 10 mg Documented by: PG Care Time/CCT Total # of Minutes Spent Total Time Spent with Patient: Total time spent is greater than 50% in coordination of care (as documented) at patient's floor/unit and/or counseling patient: Coding Level of Care Code 42286 Subseq Hosp Care Lvl 2 Diagnoses Acute respiratory failure with hypoxemia J96.01 Non-ST elevation MS (NSTEMI) I21.4 (HFpEF) heart failure with preserved ejection fraction I50.30 Nausea & vomiting R11.2 Vomiting Intractability: non-intractable Vomiting type: unspecified Chronic kidney disease, stage IV (severe) N18.4 Hypertension I10 Sleep apnea G47.30 Lone atrial fibrillation I48.91 Umbilical hernia K42.9 Gout M10.9 Venous stasis dermatitis of both lower extremities I87.2 Thickened endometrium R93.89 Anemia D64.9 DVT prophylaxis Z29.9 (1) Nausea & vomiting Vomiting Intractability: non-intractable Vomiting type: unspecified Qualified Code(s): R11.2 - Nausea with vomiting, unspecified
[2019-08-30] MEDS: ATORVASTATIN 40 MG TAB PO SCH (20:19)
[2019-08-31 06:14] LABS: Albumin Level 2.2 gm/dl (3.4-5.0); BUN Creatinine Ratio 24.1 (10-20); Calcium 7.3 mg/dl (8.5-10.1); Est GFR (African American) 10.6; Est GFR (Non-African American) 9.2; Potassium 4.6 mmol/L (3.5-5.1)
[2019-08-31 06:15] LABS: Phosphorus 4.3 mg/dl (2.5-4.9)
[2019-08-31] MEDS: ASPIRIN 81 MG ECTAB PO SCH (08:58)
[2019-08-31] MEDS: carvediloL 25 MG TAB PO SCH ×2 (08:59→20:48)
[2019-08-31] MEDS: HydrALAZINE TAB 50 MG TAB PO SCH ×3 (08:59→20:47)
[2019-08-31] MEDS: HEPARIN SOD 5,000 UNIT/0.5 ML VIAL SQ SCH ×2 (09:00→20:48)
[2019-08-31] MEDS: CLOPIDOGREL BISULFATE 75 MG TAB PO SCH (09:00)
[2019-08-31] MEDS: ISOSORBIDE MONO EXTENDED REL 60 MG TABCR PO SCH (09:00)
[2019-08-31] MEDS: IRON SUCROSE 200 MG in 0.9 % SODIUM CHLORIDE 100 ML IV SCH (09:06)
--- NOTE | 2019-08-31 09:20 | Nephrology Progress Note ---
Date of Service August 31, 2019 Assessment & Plan (1) Chronic kidney disease, stage IV (severe): CKD IV-V A3. 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 Baseline creatinine ~3.4 mg/dL. No emergent indication for dialysis today. Net negative ~1.0 L in past 24 hours with furosemide 80 mg IV x 1 dose ye . I switched back to oral Torsemide 10 mg BID today. Will monitor I/O's closely and adjust as needed. Goal is to maintain diuresis of approximately 1+ L/d. -- Document I/O's -- Low K+ and low Na+ diet -- Once patient is more mobile, may remove Owen catheter -- Torsemide 10 mg twice daily -- Repeat renal profile tomorrow AM -- Medications are currently appropriately dosed for kidney function (2) Chronic diastolic CHF (congestive heart failure): -- Cardiology following -- No RONY/ARB due to renal dysfunction (3) Anemia: -- Venofer 200 mg IV daily x 5 ordered, first dose 08/28/19 (4) Pulmonary edema: (5) Hydronephrosis of left kidney: -- Appropriate position of ureteral stent by history Admission and Anticipated Discharge Date Admission Date: August 26, 2019 Subjective No acute events overnight. Negative another 1 L in past 24 hours. Remains on supplemental O2. Breathing comfortably. LE edema improving but weakness in legs limits ambulation. No fevers. Appetite is good. Judi otherwise feels well. Considering possible rehab post discharge. Review of Systems Review of Systems: All systems reviewed & are unremarkable except as noted in HPI & below Physical Exam Constitutional: well developed; no acute distress Eyes: + anicteric sclerae; no corneal abnormality ENMT: Mouth: no oral mucosal abnormality and oral mucous membranes not dry Neck: normal visual inspection and trachea midline Respiratory: normal respiratory effort Auscultation: + rales Cardiovascular: Rate/Rhythm: regular rate Heart Sounds: normal S1 and normal S2; no gallop Vessels: + JVD Extremities: normal capillary refill and + edema Gastrointestinal (Abdomen): Inspection/Auscultation: normal bowel sounds Percussion/Palpation: abdomen soft; abdomen nontender Musculoskeletal: Extremities: no cyanosis and no clubbing Skin: + turgor decreased; no jaundice Neurologic: awake; not confused Motor/Sensory: no tremor and no asterixis Results & Data ([facility]) Vital Signs (Past 12 Hours) Vital Signs Temp Pulse Pulse Resp BP Pulse Ox 08/31/19 08:20 37.1 C 75 16 128/62 98 08/31/19 03:36 70 16 90 08/30/19 23:30 37.4 C 60 14 115/50 L 94 08/30/19 23:09 60 16 96 Laboratory Results Laboratory Results - last 24 hr 08/31/19 05:25 Sodium 141 Potassium 4.6 Chloride 107 Carbon Dioxide 29 Anion Gap 5.0 BUN 101 H Creatinine 4.18 H Est Cr Clr Drug Dosing 11.0 Est GFR ( Amer) 10.6 Est GFR (Non-Af Amer) 9.2 BUN/Creatinine Ratio 24.1 H Glucose 115 H Calcium 7.3 L Phosphorus 4.3 Albumin 2.2 L PG Care Time/CCT Total # of Minutes Spent Total Time Spent with Patient: Total time spent is greater than 50% in coordination of care (as documented) at patient's floor/unit and/or counseling patient: Coding Level of Care Code 48699 Subseq Hosp Care Lvl 3 Diagnoses Chronic kidney disease, stage IV (severe) N18.4 Chronic diastolic CHF (congestive heart failure) I50.32 Anemia D64.9 Pulmonary edema J81.0 Chronicity: acute Hydronephrosis of left kidney N13.30 (1) Pulmonary edema Chronicity: acute Qualified Code(s): J81.0 - Acute pulmonary edema
[2019-08-31] MEDS: TORSEMIDE 10 MG TAB PO SCH ×2 (09:33→17:02)
[2019-08-31] MEDS: ACETAMINOPHEN 325 MG TAB PO PRN ×2 (09:44→20:41)
--- NOTE | 2019-08-31 12:59 | Cardiology Progress Note ---
Date of Service August 31, 2019 Assessment & Plan (1) CAD (coronary artery disease), [place] coronary artery: -mild troponin leak (3.8), but new area of apical akinesis. -suspect supply/demand mismatch at time of presentation. -continue conservative medical care. -history of IPMI, RCA stents x2, February 2012. (2) Chronic diastolic CHF (congestive heart failure): -volume status continues to improve. -diuretic management per Dr. Nascimento. -preserved LV function on echocardiogram. (3) Hypertension: -adequate control. (4) Lone atrial fibrillation: -solitary event occurred at the time of an electrolyte abnormality in December 2013. -not on long-term anticoagulation for reason. Admission and Anticipated Discharge Date Admission Date: August 26, 2019 Subjective The patient is resting comfortably in the bedside chair without complaints of chest pain or dyspnea. Physical Exam Physical Exam: In general this is an obese white female in no acute distress. HEENT exam is negative. Neck is supple with full carotid upstrokes. There are no carotid bruits. No jugular venous distention. There is no thyromegaly. Cardiova scular exam reveals a regular rhythm with a normal S1 and S2. No S3, S4, or murmurs are noted. Lungs are clear without rales, rhonchi, or wheezes. Abdomen is benign without bruits. Extremities reveal intact radial artery pulses bilaterally. There is 1-2+ nonpitting edema of the lower extremities Results & Data ([facility]) Vital Signs (Past 12 Hours) Vital Signs Temp Pulse Pulse Resp BP BP Pulse Ox 08/31/19 11:46 36.8 C 08/31/19 09:36 37.1 C 71 18 132/70 97 08/31/19 08:20 37.1 C 75 16 128/62 98 08/31/19 03:36 70 16 90 PG Care Time/CCT Total # of Minutes Spent Total Time Spent with Patient: Total time spent is greater than 50% in coordination of care (as documented) at patient's floor/unit and/or counseling patient: Coding Level of Care Code 85296 Subseq Hosp Care Lvl 3 Diagnoses CAD (coronary artery disease), [place] coronary artery I25.10 Chronic diastolic CHF (congestive heart failure) I50.32 Hypertension I10 Lone atrial fibrillation I48.91
--- NOTE | 2019-08-31 13:58 | Hospitalist Progress Note ---
Date of Service August 31, 2019 Assessment & Plan (1) Acute respiratory failure with hypoxemia: due to pulmonary edema, initially thought to have aspiration pneumonitis but this is ruled out -supplemental oxygen, breathing is not labored Chronically on 2 l oxygen, uses CPAP HS acute component appears to be resolved (2) Non-ST elevation HI (NSTEMI): Troponin 2.88 on admission, likely myocardial demand ischemia and less likely ACS given the hypoxia, recent nausea/vomiting With known underlying CAD, status post TOYA to the RCA x2 ECG with LBBB -Continue home aspirin, Plavix, atorvastatin, carvedilol, isosorbide, hydralazine - serial troponin did not rise -Started on heparin drip in the ER- discontinue -cardiology consultation, renal function prevents left heart cath patient stable, no chest pain or pressure (3) (HFpEF) heart failure with preserved ejection fraction: Some component of acute on chronic diastolic CHF, has small bilateral pleural effusions she has JVD, significant lower extremity edema and pulmonary rales -Only takes torsemide once a day about 4 times a week rather than the twice daily as prescribed nephrology following completed several days of Lasix IV, diuresing well, > 1 liter a day change back to Torsemide 10mg PO BID, follow UO, remove bush once she is more mobile Cr stable at 4 today (4) Nausea & vomiting: Initially with abdominal pain, now resolved. No leukocytosis here, LFTs are normal, lipase normal. CT of the abdomen/pelvis without contrast does not show any evidence of colitis, diverticulitis, or obstruction. She did have associated periumbilical pain at the site of her hernia when it first started. Question if had a partial small bowel obstruction at that time which is now resolved. Abdominal pain completely resolved and hernia is reducible. Lactate is negative. Nausea is now improved eating well, passing flatus, still no BM, she is refusing laxative, she is not concerned about moving bowels abdomen is soft, + bowel sounds (5) Chronic kidney disease, stage IV (severe): Baseline creatinine used to be 2.3-2.5, but in the last month has gone up to 3.4-3.6 This did not change despite changing out her left ureteral stent 2 weeks ago with urology There is no hydronephrosis or blockage on CT abdomen/pelvis on admission history of bilateral renal cysts -Consult nephrology now appears to have VIVIAN on CKD stage IV Cr stable at 4.18 today, has been 4 for four days now change diuretic to Torsemide 10mg PO BID (6) Hypertension: Continue home meds of carvedilol, isosorbide, hydralazine BP stable (7) Sleep apnea: -We will order CPAP at 3 cm H2O with 2 L oxygen connected at bedtime (8) [place]one atrial fibrillation: Many years ago, thought to be due to hypomagnesemia currently in NSR with LBBB also history of VT but no recurrence sine RVOT ablation (9) Umbilical hernia: As above, is reducible (10) Gout: No acute flare (11) Venous stasis dermatitis of both lower extremities: - (12) Thickened endometrium: Incidentally noted to be thickened on CT scan -Needs outpatient pelvic ultrasound and gynecology follow-up if desired (13) Anemia: Likely secondary to chronic kidney disease Hemoglobin fairly stable here (14) DVT prophylaxis: transition to bid heparin sc DNR/DNI as per his discussion with patient Plan: try to convince patient of rehab needs, PT/OT ordered son hopes she will go to rehab for 1-2 weeks to get stronger prior to returning home at home she sits/sleeps in her recliner, does not do much Admission and Anticipated Discharge Date Admission Date: August 26, 2019 Subjective patient sitting in chair, no distress, breathing is at baseline she is not coughing, no fever/chills, eating well + flatus, still no BM, she says she is not concerned less edema in legs discussed with Dr. Nascimento, will change back to Torsemide 10mg PO BID and follow UO Cr is 4.1 again today, stable, K is normal still working with therapy, she is willing to consider rehab for a brief stay to get her stronger for home Review of Systems Review of Systems: All systems reviewed & are unremarkable except as noted in HPI & below Physical Exam Constitutional: well developed, well nourished, + overweight and + edematous; no acute distress Eyes: PERRL, conjunctivae normal, anicteric sclerae ENMT: external ear and nose normal, oropharynx normal Neck: trachea midline, no thyromegaly Respiratory: normal respiratory effort; no respiratory distress, no labored breathing and no cough Auscultation: lungs clear to auscultation bilaterally and + diminished lung sounds (bases) Cardiovascular: Rate/Rhythm: regular rate and regular rhythm Heart Sounds: normal S1 and normal S2; no murmur Vessels: + JVD Extremities: normal capillary refill and + edema (pitting to mid shins, improving) Gastrointestinal (Abdomen): normal bowel sounds, soft, nontender, no hepatosplenomegaly Musculoskeletal: no cyanosis or clubbing, extremities motor strength 5/5 Skin: no rashes, warm and dry Neurologic: patellar DTR's 2+ bilat, sensation intact and PERRL, EOMI, accommodation nl, no face palsy, no dysarthria Psychiatric: A+Ox3, euthymic affect Lymphatic: no cervical or axillary lymphadenopathy Results & Data Results & Data ([facility]) Vital Signs (Past 12 Hours) Vital Signs Temp Pulse Pulse Resp BP BP Pulse Ox 08/31/19 13:18 08/31/19 11:46 36.8 C 08/31/19 09:36 37.1 C 71 18 132/70 97 08/31/19 08:20 37.1 C 75 16 128/62 98 08/31/19 03:36 70 16 90 Pulse Ox 08/31/19 13:18 97 08/31/19 11:46 08/31/19 09:36 08/31/19 08:20 08/31/19 03:36 Laboratory Results Laboratory Results - last 24 hr 08/31/19 05:25 Sodium 141 Potassium 4.6 Chloride 107 Carbon Dioxide 29 Anion Gap 5.0 BUN 101 H Creatinine 4.18 H Est Cr Clr Drug Dosing 11.0 Est GFR ( Amer) 10.6 Est GFR (Non-Af Amer) 9.2 BUN/Creatinine Ratio 24.1 H Glucose 115 H Calcium 7.3 L Phosphorus 4.3 Albumin 2.2 L Medications Administered Current Inpatient Medications Acetaminophen (Tylenol) 650 mg PO Q4H PRN PRN Reason: Pain or Fever Stop: 09/25/19 16:19 Last Admin: 08/31/19 09:44 Dose: 650 mg Documented by: Aspirin (Ecotrin Ectab) 81 mg PO QAM [facility] Stop: 09/25/19 12:59 Last Admin: 08/31/19 08:58 Dose: 81 mg Documented by: Atorvastatin Calcium (Lipitor) 80 mg PO QPM [facility] Stop: 09/25/19 20:59 Last Admin: 08/30/19 20:19 Dose: 80 mg Documented by: Carvedilol (Coreg) 25 mg PO BID [facility] Stop: 09/25/19 12:59 Last Admin: 08/31/19 08:59 Dose: 25 mg Documented by: Clopidogrel Bisulfate (Plavix) 75 mg PO QAM [facility] Stop: 09/25/19 12:58 Last Admin: 08/31/19 09:00 Dose: 75 mg Documented by: Heparin Sodium (Porcine) (Heparin Sodium (Porcine)) 5,000 units SQ Q12 SAL Stop: 09/26/19 08:59 Last Admin: 08/31/19 09:00 Dose: 5,000 units Documented by: Hydralazine HCl (Apresoline) 100 mg PO TID [facility] Stop: 09/25/19 13:59 Last Admin: 08/31/19 13:42 Dose: 100 mg Documented by: Promethazine HCl 6.25 mg/ (Sodium Chloride) 50.25 mls @ 201 mls/hr IV Q6H PRN PRN Reason: Nausea And Vomiting Stop: 09/25/19 16:19 Iron Sucrose 200 mg/ Sodium (Chloride) 110 mls @ 220 mls/hr IV DAILY [facility] Stop: 09/01/19 09:29 Last Infusion: 08/31/19 09:38 Dose: Infused Documented by: Isosorbide Mononitrate (Imdur Extended Rel) 60 mg PO QAM [facility] Stop: 09/25/19 12:59 Last Admin: 08/31/19 09:00 Dose: 60 mg Documented by: Nitroglycerin (Nitrostat) 0.4 mg SL UD PRN PRN Reason: Chest Pain Stop: 09/25/19 16:19 Torsemide (Demadex) 10 mg PO BID17 [facility] Stop: 09/30/19 08:59 Last Admin: 08/31/19 09:33 Dose: 10 mg Documented by: PG Care Time/CCT Total # of Minutes Spent Total Time Spent with Patient: Total time spent is greater than 50% in coordination of care (as documented) at patient's floor/unit and/or counseling patient: Coding Level of Care Code 79815 Subseq Hosp Care Lvl 2 Diagnoses Acute respiratory failure with hypoxemia J96.01 Non-ST elevation HI (NSTEMI) I21.4 (HFpEF) heart failure with preserved ejection fraction I50.30 Nausea & vomiting R11.2 Vomiting Intractability: non-intractable Vomiting type: unspecified Chronic kidney disease, stage IV (severe) N18.4 Hypertension I10 Sleep apnea G47.30 Lone atrial fibrillation I48.91 Umbilical hernia K42.9 Gout M10.9 Venous stasis dermatitis of both lower extremities I87.2 Thickened endometrium R93.89 Anemia D64.9 DVT prophylaxis Z29.9 (1) Nausea & vomiting Vomiting Intractability: non-intractable Vomiting type: unspecified Qualified Code(s): R11.2 - Nausea with vomiting, unspecified
[2019-08-31] MEDS: DOCUSATE SODIUM 100 MG CAP PO SCH (20:41)
[2019-08-31] MEDS: ATORVASTATIN 40 MG TAB PO SCH (20:42)
[2019-09-01 06:12] LABS: BUN Creatinine Ratio 24.7 (10-20); Calcium 7.5 mg/dl (8.5-10.1); Creatinine Clr Calc Pharmacy 10.5 ml/min; Est GFR (African American) 10.2; Est GFR (Non-African American) 8.8; Potassium 4.4 mmol/L (3.5-5.1)
[2019-09-01] MEDS: ISOSORBIDE MONO EXTENDED REL 60 MG TABCR PO SCH (08:44)
[2019-09-01] MEDS: carvediloL 25 MG TAB PO SCH ×2 (08:44→20:39)
[2019-09-01] MEDS: CLOPIDOGREL BISULFATE 75 MG TAB PO SCH (08:44)
[2019-09-01] MEDS: TORSEMIDE 10 MG TAB PO SCH (08:45)
[2019-09-01] MEDS: HydrALAZINE TAB 50 MG TAB PO SCH ×3 (08:45→20:40)
[2019-09-01] MEDS: DOCUSATE SODIUM 100 MG CAP PO SCH ×2 (08:45→20:39)
[2019-09-01] MEDS: ASPIRIN 81 MG ECTAB PO SCH (08:45)
[2019-09-01] MEDS: HEPARIN SOD 5,000 UNIT/0.5 ML VIAL SQ SCH ×2 (08:50→20:41)
[2019-09-01] MEDS: IRON SUCROSE 200 MG in 0.9 % SODIUM CHLORIDE 100 ML IV SCH (08:55)
--- NOTE | 2019-09-01 09:26 | Nephrology Progress Note ---
Date of Service September 01, 2019 Assessment & Plan (1) Chronic kidney disease, stage IV (severe): CKD IV-V A3. 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 Baseline creatinine ~3.4 mg/dL. No emergent indication for dialysis at this time. Close follow up with nephrology for advanced planning for future [employer] needs will be essential. Overall, kidney dysfunction advanced but relatively stable. Volume status significantly improved since admission. Despite even I/O's since switching from IV furosemide to PO torsemide yesterday, weight is down ~2.5 kg and exam suggests significant improvement. I will reduce Torsemide to 10 mg daily today with continued monitoring of daily weights. BP and volume status are acceptable. Owen may be removed. Medications are currently appropriately dosed for kidney function. (2) Chronic diastolic CHF (congestive heart failure): No RONY/ARB due to renal dysfunction. Established to follow up in CHF clinic post discharge. (3) Anemia: Venofer 200 mg IV daily x 5 ordered, first dose 08/28/19 (4) Hydronephrosis of left kidney: Appropriate position of ureteral stent by history Admission and Anticipated Discharge Date Admission Date: August 26, 2019 Subjective No acute events overnight. Judi feels well this morning. She reports some discomfort in her right ankle. She noticed this initially while standing yesterday. While resting in bed this morning, it is feeling slightly better. The ankle is not tender or swollen. Judi is breathing comfortably. Owen remains intact. I/O's equal but weight is down ~2.5 kg in past 24 hours. Appetite remains good. Disposition pending for possible rehab placement. Review of Systems Review of Systems: All systems reviewed & are unremarkable except as noted in HPI & below Physical Exam Constitutional: well developed and + frail appearing; no acute distress Eyes: + anicteric sclerae; no corneal abnormality ENMT: Mouth: no oral mucosal abnormality and oral mucous membranes not dry Neck: normal visual inspection and trachea midline Respiratory: normal respiratory effort Auscultation: lungs clear to auscultation bilaterally Cardiovascular: Rate/Rhythm: regular rate Heart Sounds: normal S1 and normal S2 Extremities: + edema (significantly improved) Gastrointestinal (Abdomen): Inspection/Auscultation: normal bowel sounds Percussion/Palpation: abdomen soft; abdomen nontender Musculoskeletal: Extremities: no cyanosis and no clubbing Skin: + turgor decreased; no jaundice Neurologic: awake; not confused Motor/Sensory: no tremor and no asterixis Results & Data ([facility]) Vital Signs (Past 12 Hours) Vital Signs Temp Pulse Pulse Pulse Resp BP BP 09/01/19 08:48 69 138/51 L 09/01/19 07:02 37.0 C 69 16 134/57 L 09/01/19 05:10 37.0 C 09/01/19 03:41 69 18 08/31/19 23:14 37.7 C H 65 14 114/51 L 08/31/19 21:28 72 16 Pulse Ox 09/01/19 08:48 96 09/01/19 07:02 97 09/01/19 05:10 09/01/19 03:41 94 08/31/19 23:14 95 08/31/19 21:28 95 Laboratory Results Laboratory Results - last 24 hr 09/01/19 05:22 Sodium 142 Potassium 4.4 Chloride 107 Carbon Dioxide 27 Anion Gap 8.0 BUN 107 H Creatinine 4.34 H Est Cr Clr Drug Dosing 10.5 Est GFR ( Amer) 10.2 Est GFR (Non-Af Amer) 8.8 BUN/Creatinine Ratio 24.7 H Glucose 113 H Calcium 7.5 L Phosphorus 4.0 Albumin 2.0 L PG Care Time/CCT Total # of Minutes Spent Total Time Spent with Patient: Total time spent is greater than 50% in coordination of care (as documented) at patient's floor/unit and/or counseling patient: Coding Level of Care Code 12959 Subseq Hosp Care Lvl 3 Diagnoses Chronic kidney disease, stage IV (severe) N18.4 Chronic diastolic CHF (congestive heart failure) I50.32 Anemia D64.9 Hydronephrosis of left kidney N13.30
--- NOTE | 2019-09-01 15:53 | Hospitalist Progress Note ---
Date of Service September 01, 2019 Assessment & Plan (1) Acute respiratory failure with hypoxemia: due to pulmonary edema, initially thought to have aspiration pneumonitis but this is ruled out -supplemental oxygen, breathing is not labored Chronically on 2 l oxygen, uses CPAP HS acute component appears to be resolved (2) Non-ST elevation MO (NSTEMI): Troponin 2.88 on admission, likely myocardial demand ischemia and less likely ACS given the hypoxia, recent nausea/vomiting With known underlying CAD, status post TOYA to the RCA x2 ECG with LBBB -Continue home aspirin, Plavix, atorvastatin, carvedilol, isosorbide, hydralazine - serial troponin did not rise -Started on heparin drip in the ER- discontinue -cardiology consultation, renal function prevents left heart cath patient stable, no chest pain or pressure (3) (HFpEF) heart failure with preserved ejection fraction: Some component of acute on chronic diastolic CHF, has small bilateral pleural effusions she has JVD, significant lower extremity edema and pulmonary rales -Only takes torsemide once a day about 4 times a week rather than the twice daily as prescribed nephrology following completed several days of Lasix IV, diuresing well, > 1 liter a day change back to Torsemide 10mg PO BID, continues to have adequate UO reduced the Torsemide to 10mg daily, this is home dose Cr is 4.3 today would remove bush but patient has no mobility, cannot even stand to use bedside commode will keep bush for now, do not want her to have incontinence (4) Nausea & vomiting: Initially with abdominal pain, now resolved. No leukocytosis here, LFTs are normal, lipase normal. CT of the abdomen/pelvis without contrast does not show any evidence of colitis, diverticulitis, or obstruction. She did have associated periumbilical pain at the site of her hernia when it first started. Question if had a partial small bowel obstruction at that time which is now resolved. Abdominal pain completely resolved and hernia is reducible. Lactate is negative. Nausea is now improved eating well, passing flatus, still no BM, she is refusing laxative, she is not concerned about moving bowels abdomen is soft, + bowel sounds (5) Chronic kidney disease, stage IV (severe): Baseline creatinine used to be 2.3-2.5, but in the last month has gone up to 3.4-3.6 This did not change despite changing out her left ureteral stent 2 weeks ago with urology There is no hydronephrosis or blockage on CT abdomen/pelvis on admission history of bilateral renal cysts -Consult nephrology now appears to have VIVIAN on CKD stage IV Cr up at 4.3 today, has been 4 for five days now change diuretic to Torsemide 10mg PO daily (6) Hypertension: Continue home meds of carvedilol, isosorbide, hydralazine BP stable (7) Sleep apnea: -We will order CPAP at 3 cm H2O with 2 L oxygen connected at bedtime (8) Lone atrial fibrillation: Many years ago, thought to be due to hypomagnesemia currently in NSR with LBBB also history of VT but no recurrence sine RVOT ablation (9) Umbilical hernia: As above, is reducible (10) Gout: No acute flare (11) Venous stasis dermatitis of both lower extremities: - (12) Thickened endometrium: Incidentally noted to be thickened on CT scan -Needs outpatient pelvic ultrasound and gynecology follow-up if desired (13) Anemia: Likely secondary to chronic kidney disease Hemoglobin fairly stable here (14) Ankle pain, right: new complaint, has a h/o gouty arthritis will give a single dose of Colchicine 0.6mg, cannot re-dose due to Cr Cl of 10 give Prednisone 20mg look for improvement in symptoms, if better tomorrow then continue the Prednisone for 5-7 days (15) DVT prophylaxis: transition to bid heparin sc DNR/DNI as per his discussion with patient Plan: try to convince patient of rehab needs, PT/OT ordered son hopes she will go to rehab for 1-2 weeks to get stronger prior to returning home at home she sits/sleeps in her recliner, does not do much Admission and Anticipated Discharge Date Admission Date: August 26, 2019 Subjective patient sitting up in chair, pleasant, no distress could not perform therapy today due to right ankle pain says that the pain is worse today compared to yesterday, started while she was here has a h/o gout, did not injure the ankle to her knowledge her breathing is normal, she is eating well, no chest pain discussed with Dr. Nascimento, will decreased Torsemide to 10mg daily Cr is up a little at 4.34, K is 4.4 plans for rehab at [facility] on Wednesday, she agrees Review of Systems Review of Systems: All systems reviewed & are unremarkable except as noted in HPI & below Constitutional: + weakness; no fever Respiratory: no cough and no dyspnea Cardiovascular: + edema; no chest pain and no syncope Gastrointestinal: + constipation; no abdominal pain, no nausea, no vomiting and no diarrhea/loose stools Musculoskeletal: + joint pain (right ankle, medial side) Physical Exam Constitutional: well developed, well nourished, + overweight and + edematous; no acute distress Eyes: PERRL, conjunctivae normal, anicteric sclerae ENMT: external ear and nose normal, oropharynx normal Neck: trachea midline, no thyromegaly Respiratory: normal respiratory effort; no respiratory distress, no labored breathing and no cough Auscultation: lungs clear to auscultation bilaterally and + diminished lung sounds (bases) Cardiovascular: Rate/Rhythm: regular rate and regular rhythm Heart Sounds: normal S1 and normal S2; no murmur Vessels: + JVD Extremities: normal capillary refill and + edema (pitting to mid shins, improving) Gastrointestinal (Abdomen): normal bowel sounds, soft, nontender, no h epatosplenomegaly Musculoskeletal: no cyanosis or clubbing, extremities motor strength 5/5 Ankle: + effusion (right ankle) and + limited ROM of ankle (right ankle, due to pain) Skin: no rashes, warm and dry Neurologic: patellar DTR's 2+ bilat, sensation intact and PERRL, EOMI, accommodation nl, no face palsy, no dysarthria Psychiatric: A+Ox3, euthymic affect Lymphatic: no cervical or axillary lymphadenopathy Results & Data Results & Data ([facility]) Vital Signs (Past 12 Hours) Vital Signs Temp Pulse Pulse Resp BP BP Pulse Ox 09/01/19 15:05 36.8 C 67 18 130/65 97 09/01/19 09:25 37 C 69 18 110/54 L 94 09/01/19 08:48 69 138/51 L 96 09/01/19 07:02 37.0 C 69 16 134/57 L 97 09/01/19 05:10 37.0 C Laboratory Results Laboratory Results - last 24 hr 09/01/19 05:22 Sodium 142 Potassium 4.4 Chloride 107 Carbon Dioxide 27 Anion Gap 8.0 BUN 107 H Creatinine 4.34 H Est Cr Clr Drug Dosing 10.5 Est GFR ( Amer) 10.2 Est GFR (Non-Af Amer) 8.8 BUN/Creatinine Ratio 24.7 H Glucose 113 H Calcium 7.5 L Phosphorus 4.0 Albumin 2.0 L Medications Administered Current Inpatient Medications Acetaminophen (Tylenol) 650 mg PO Q4H PRN PRN Reason: Pain or Fever Stop: 09/25/19 16:19 Last Admin: 08/31/19 20:41 Dose: 650 mg Documented by: Aspirin ([facility]rin [facility]ab) [facility] Stop: 09/25/19 12:59 Last Admin: 09/01/19 08:45 Dose: 81 mg Documented by: Atorvastatin Calcium (Lipitor) 80 mg PO QPM [facility] Stop: 09/25/19 20:59 Last Admin: 08/31/19 20:42 Dose: 80 mg Documented by: Carvedilol (Coreg) 25 mg PO BID [facility] Stop: 09/25/19 12:59 Last Admin: 09/01/19 08:44 Dose: 25 mg Documented by: Clopidogrel Bisulfate (Plavix) [facility] Stop: 09/25/19 12:58 Last Admin: 09/01/19 08:44 Dose: 75 mg Documented by: Colchicine (Colcrys) 0.6 mg PO ONE ONE Stop: 09/01/19 16:01 Docusate Sodium (Colace) 100 mg PO BID [facility] Stop: 09/30/19 20:59 Last Admin: 09/01/19 08:45 Dose: 100 mg Documented by: Heparin Sodium (Porcine) (Heparin Sodium (Porcine)) 5,000 units SQ Q12 [facility] Stop: 09/26/19 08:59 Last Admin: 09/01/19 08:50 Dose: 5,000 units Documented by: Hydralazine HCl (Apresoline) 100 mg PO TID [facility] Stop: 09/25/19 13:59 Last Admin: 09/01/19 13:30 Dose: 100 mg Documented by: Promethazine HCl 6.25 mg/ (Sodium Chloride) 50.25 mls @ 201 mls/hr IV Q6H PRN PRN Reason: Nausea And Vomiting Stop: 09/25/19 16:19 Isosorbide Mononitrate (Imdur Extended Rel) [facility] Stop: 07/06/20 12:59 Last Admin: 09/01/19 08:44 Dose: 60 mg Documented by: Nitroglycerin (Nitrostat) 0.4 mg SL UD PRN PRN Reason: Chest Pain Stop: 09/25/19 16:19 Prednisone (Prednisone) 20 mg PO ONE ONE Stop: 09/01/19 16:01 Torsemide (Demadex) 10 mg PO DAILY [facility] Stop: 10/02/19 08:59 PG Care Time/CCT Total # of Minutes Spent Total Time Spent with Patient: Total time spent is greater than 50% in coordination of care (as documented) at patient's floor/unit and/or counseling patient: Coding Level of Care Code 71246 Subseq Hosp Care Lvl 2 Diagnoses Acute respiratory failure with hypoxemia J96.01 Non-ST elevation MO (NSTEMI) I21.4 (HFpEF) heart failure with preserved ejection fraction I50.30 Nausea & vomiting R11.2 Vomiting Intractability: non-intractable Vomiting type: unspecified Chronic kidney disease, stage IV (severe) N18.4 Hypertension I10 Sleep apnea G47.30 Lone atrial fibrillation I48.91 Umbilical hernia K42.9 Gout M10.9 Venous stasis dermatitis of both lower extremities I87.2 Thickened endometrium R93.89 Anemia D64.9 Ankle pain, right M25.571 DVT prophylaxis Z29.9 (1) Nausea & vomiting Vomiting Intractability: non-intractable Vomiting type: unspecified Qualified Code(s): R11.2 - Nausea with vomiting, unspecified
[2019-09-01] MEDS ORDERED: predniSONE 20 MG TAB PO ONE (16:00)
[2019-09-01] MEDS ORDERED: COLCHICINE 0.6 MG TAB PO ONE (16:00)
[2019-09-01] MEDS: ATORVASTATIN 40 MG TAB PO SCH (20:39)
[2019-09-02 07:09] LABS: Hematocrit (blood only) 28.1 % (37-47); Hemoglobin 8.7 g/dL (12.0-16.0); Mean Corpuscular Hemoglobin 30.1 pg (25-34); Mean Corpuscular Volume 97.2 fL (80-100); Mean Platelet Volume 11.8 fL (7.4-10.4); Platelet Count 149 K/uL (130-400); RDW Coefficient of Variation 15.7 % (11.5-14.5); RDW Standard Deviation 55.1 fL (36.4-46.3); Red Blood Count 2.89 M/uL (4.2-5.4); White Blood Count 10.47 K/uL (4.8-10.8)
[2019-09-02 07:37] LABS: Albumin Level 2.1 gm/dl (3.4-5.0); BUN Creatinine Ratio 24.4 (10-20); Calcium 7.8 mg/dl (8.5-10.1); Creatinine Clr Calc Pharmacy 10.4 ml/min; Est GFR (African American) 10.1; Est GFR (Non-African American) 8.7; Phosphorus 4.5 mg/dl (2.5-4.9); Potassium 4.6 mmol/L (3.5-5.1)
[2019-09-02] MEDS ORDERED: TORSEMIDE 10 MG TAB PO SCH (09:00)
[2019-09-02] MEDS: HydrALAZINE TAB 50 MG TAB PO SCH ×3 (09:44→21:46)
[2019-09-02] MEDS: carvediloL 25 MG TAB PO SCH ×2 (09:45→21:46)
[2019-09-02] MEDS: ASPIRIN 81 MG ECTAB PO SCH (09:45)
[2019-09-02] MEDS: DOCUSATE SODIUM 100 MG CAP PO SCH ×2 (09:45→21:46)
[2019-09-02] MEDS: ISOSORBIDE MONO EXTENDED REL 60 MG TABCR PO SCH (09:45)
[2019-09-02] MEDS: CLOPIDOGREL BISULFATE 75 MG TAB PO SCH (09:46)
[2019-09-02] MEDS: HEPARIN SOD 5,000 UNIT/0.5 ML VIAL SQ SCH ×2 (09:47→21:49)
--- NOTE | 2019-09-02 10:32 | Nephrology Progress Note ---
Date of Service September 02, 2019 Assessment & Plan (1) Chronic kidney disease, stage IV (severe): * Serum Cr has risen from 2.5 to 4.1. Renal impairment is due to HTN, microvascular disease and poor perfusion associated w/ diastolic heart failure * Electrolyte balance is acceptable at this time. No uremic symptoms. No acute indication for FORM DESIGNER at this time * Clinically volume contracted. Lungs CTA on exam. Breathing comfortably on RA. Will always have LE swelling due to pulmonary HTN and high R sided heart pressure. Agree w/ transitioning to Torsemide 10 mg daily. Need to avoid over diuresis. I&O were matched overnight. Patient is net 3.7L volume negative since admission * Discussed vascular access and FORM DESIGNER in detail w/ patient this morning. She is agreeable to dialysis if needed. Will consider vascular access creation once recovered from current illness and physically stronger (2) Chronic diastolic CHF (congestive heart failure): * RONY/ARB withheld due to advanced CKD (3) Anemia: * Completed 1g IV Venofer * Will provide 10,000 units SQ Epo x1 today * Monitor H&H (4) Hydronephrosis of left kidney: * L ureteral stent in place Admission and Anticipated Discharge Date Admission Date: August 26, 2019 Subjective Ms. Watson was seen & examined in her hospital room this morning. She is breathing comfortably on RA and reports that her R ankle discomfort has resolved. Ms. Watson reports good response to oral diuretic therapy Review of Systems Constitutional: + weakness Eyes: no problem reported Ear, Nose, Mouth, Throat: no problem reported Respiratory: no cough and no dyspnea Cardiovascular: + edema; no chest pain and no palpitations Gastrointestinal: no abdominal pain, no nausea, no vomiting and no diarrhea/loose stools Genitourinary: no dysuria and no hematuria Musculoskeletal: no back pain Integumentary: no rash Neurologic: no dizziness and no confusion Physical Exam Constitutional: + frail appearing; not in distress Eyes: PERRL, conjunctivae normal, anicteric sclerae ENMT: external ear and nose normal, oropharynx normal Neck: trachea midline, no thyromegaly Respiratory: normal respiratory effort, lungs clear to auscultation Cardiovascular: Rate/Rhythm: regular rate and regular rhythm Extremities: + edema (2+ pretibial pitting edema) Gastrointestinal (Abdomen): normal bowel sounds, soft, nontender, no hepatos plenomegaly Musculoskeletal: Extremities: no cyanosis Skin: no rashes, warm and dry Neurologic: awake; not confused Results & Data ([facility]) Vital Signs (Past 12 Hours) Vital Signs Temp Pulse Pulse Pulse Resp BP BP 09/02/19 09:43 69 131/57 L 09/02/19 08:02 36.7 C 68 16 127/64 09/02/19 03:15 70 16 09/01/19 23:40 37.2 C 70 14 146/70 H 09/01/19 22:52 67 18 Pulse Ox 09/02/19 09:43 09/02/19 08:02 97 09/02/19 03:15 95 09/01/19 23:40 92 09/01/19 22:52 97 Laboratory Results Laboratory Tests 09/02/19 09/02/19 06:30 06:30 WBC 10.47 Hgb 8.7 L Hct 28.1 L Plt Count 149 Sodium 141 Potassium 4.6 Chloride 107 Carbon Dioxide 28 BUN 107 H Creatinine 4.37 H Glucose 126 H Calcium 7.8 L Albumin 2.1 L ECHOCARDIOGRAM 08/26/19: LVEF 55-60%, mod LA dilation, mild MR, moderate to severe pHTN w/ RVSP 59 mmHg, mild to moderate TR PG Care Time/CCT Total # of Minutes Spent Total Time Spent with Patient: Total time spent is greater than 50% in coordination of care (as documented) at patient's floor/unit and/or counseling patient: Coding Level of Care Code 36495 Subseq Hosp Care Lvl 3 Diagnoses Chronic kidney disease, stage IV (severe) N18.4 Chronic diastolic CHF (congestive heart failure) I50.32 Anemia D64.9 Hydronephrosis of left kidney N13.30
[2019-09-02] MEDS ORDERED: EPOETIN ALFA 10,000 UNITS/ML VIAL SQ ONE (11:00)
--- NOTE | 2019-09-02 12:10 | Hospitalist Progress Note ---
Date of Service September 02, 2019 Assessment & Plan (1) Acute respiratory failure with hypoxemia: due to pulmonary edema, initially thought to have aspiration pneumonitis but this is ruled out -supplemental oxygen, breathing is not labored Chronically on 2 l oxygen, uses CPAP HS acute component appears to be resolved for several days, lungs clear (2) Non-ST elevation CA (NSTEMI): Troponin 2.88 on admission, likely myocardial demand ischemia and less likely ACS given the hypoxia, recent nausea/vomiting With known underlying CAD, status post TOYA to the RCA x2 ECG with LBBB -Continue home aspirin, Plavix, atorvastatin, carvedilol, isosorbide, hydra lazine - serial troponin did not rise -Started on heparin drip in the ER- discontinue -cardiology consultation, renal function prevents left heart cath patient stable, no chest pain or pressure (3) (HFpEF) heart failure with preserved ejection fraction: Some component of acute on chronic diastolic CHF, has small bilateral pleural effusions she has JVD, significant lower extremity edema and pulmonary rales -Only takes torsemide once a day about 4 times a week rather than the twice daily as prescribed nephrology following completed several days of Lasix IV, diuresing well, > 1 liter a day change back to Torsemide 10mg PO BID, continues to have adequate UO reduced the Torsemide to 10mg daily, this is home dose Cr is 4.37 again today would remove bush but patient has no mobility, cannot even stand to use bedside commode will keep bush for now, do not want her to have incontinence no further diuresis needed, intravascularly contracted, lungs clear will always have lower extremity edema due to Pulm HTN and right sided failure continue Torsemide 10mg daily on discharge (4) Nausea & vomiting: Initially with abdominal pain, now resolved. No leukocytosis here, LFTs are normal, lipase normal. CT of the abdomen/pelvis without contrast does not show any evidence of colitis, diverticulitis, or obstruction. She did have associated periumbilical pain at the site of her hernia when it first started. Question if had a partial small bowel obstruction at that time which is now resolved. Abdominal pain completely resolved and hernia is reducible. Lactate is negative. Nausea is now improved eating well, passing flatus, had a BM today appetite is better today (5) Chronic kidney disease, stage IV (severe): Baseline creatinine used to be 2.3-2.5, but in the last month has gone up to 3.4-3.6 This did not change despite changing out her left ureteral stent 2 weeks ago with urology There is no hydronephrosis or blockage on CT abdomen/pelvis on admission history of bilateral renal cysts -Consult nephrology now appears to have VIVIAN on CKD stage IV, may be advancing to CKD stage V nephrology discussed COMMUNICATION COORDINATOR with her in detail, she is agreeable to vascular access creation once she recovers from this hospitalization Cr up at 4.37 today, electrolytes acceptable change diuretic to Torsemide 10mg PO daily (6) Hypertension: Continue home meds of carvedilol, isosorbide, hydralazine BP stable (7) Sleep apnea: -We will order CPAP at 3 cm H2O with 2 L oxygen connected at bedtime (8) Lone atrial fibrillation: Many years ago, thought to be due to hypomagnesemia currently in NSR with LBBB also history of VT but no recurrence sine RVOT ablation (9) Umbilical hernia: As above, is reducible (10) Gout: acute flare on 08/31 treated with Colchicine 0.6mg x 1 and Prednisone 20mg favorable response, less pain today will give Prednisone 20mg daily (11) Venous stasis dermatitis of both lower extremities: - (12) Thickened endometrium: Incidentally noted to be thickened on CT scan -Needs outpatient pelvic ultrasound and gynecology follow-up if desired (13) Anemia: Likely secondary to chronic kidney disease Hemoglobin fairly stable here will give EPO today (14) Ankle pain, right: new complaint, has a h/o gouty arthritis responded well to a single dose of Colchicine 0.6mg, cannot re-dose due to Cr Cl of 10 give Prednisone 20mg will continue Prednisone x 7 days total (15) DVT prophylaxis: transition to bid heparin sc DNR/DNI as per his discussion with patient Plan: agrees to rehab, plan for transfer on Sunday 09/03 Admission and Anticipated Discharge Date Admission Date: August 26, 2019 Subjective patient reports right ankle pain better after Colchicine and Prednisone will give Prednsione 20mg daily x 5 more days, cannot give further Colchicine due to renal failure Cr is 4.37 today, electrolytes acceptable, intravascularly contracted she is breathing well, no chest pain she was able to have a BM today, she is eating better today discussed with Dr. Alvarado, appreciate his input Review of Systems Review of Systems: All systems reviewed & are unremarkable except as noted in HPI & below Constitutional: + fatigue and + weakness Respiratory: + dyspnea on exertion Cardiovascular: + edema; no chest pain Gastrointestinal: no abdominal pain, no nausea, no vomiting, no constipation and no diarrhea/loose stools Musculoskeletal: + joint pain (right ankle, less pain) Physical Exam Constitutional: well developed, well nourished, + overweight and + edematous; no acute distress Eyes: PERRL, conjunctivae normal, anicteric sclerae ENMT: external ear and nose normal, oropharynx normal Neck: trachea midline, no thyromegaly Respiratory: normal respiratory effort; no respiratory distress, no labored breathing and no cough Auscultation: lungs clear to auscultation bilaterally and + diminished lung sounds (bases) Cardiovascular: Rate/Rhythm: regular rate and regular rhythm Heart Sounds: normal S1 and normal S2; no murmur Extremities: normal capillary refill and + edema (pitting to mid shins, improving) Gastrointestinal (Abdomen): normal bowel sounds, soft, nontender, no hepatosplenomegaly Musculoskeletal: no cyanosis or clubbing, extremities motor strength 5/5 Ankle: + effusion (right ankle) and + limited ROM of ankle (right ankle, due to pain) Skin: no rashes, warm and dry Neurologic: patellar DTR's 2+ bilat, sensation intact and PERRL, EOMI, accommodation nl, no face palsy, no dysarthria Psychiatric: A+Ox3, euthymic affect Lymphatic: no cervical or axillary lymphadenopathy Results & Data Results & Data ([facility]) Vital Signs (Past 12 Hours) Vital Signs Temp Pulse Pulse Pulse Resp BP BP 09/02/19 09:43 69 131/57 L 09/02/19 08:02 36.7 C 68 16 127/64 09/02/19 03:15 70 16 Pulse Ox 09/02/19 09:43 09/02/19 08:02 97 09/02/19 03:15 95 Laboratory Results Laboratory Results - last 24 hr 09/02/19 09/02/19 06:30 06:30 WBC 10.47 RBC 2.89 L Hgb 8.7 L Hct 28.1 L MCV 97.2 MCH 30.1 MCHC 31.0 L RDW Std Deviation 55.1 H RDW Coeff of Nicolasa 15.7 H Plt Count 149 MPV 11.8 H Sodium 141 Potassium 4.6 Chloride 107 Carbon Dioxide 28 Anion Gap 6.0 BUN 107 H Creatinine 4.37 H Est Cr Clr Drug Dosing 10.4 Est GFR ( Amer) 10.1 Est GFR (Non-Af Amer) 8.7 BUN/Creatinine Ratio 24.4 H Glucose 126 H Calcium 7.8 L Phosphorus 4.5 Albumin 2.1 L Medications Administered Current Inpatient Medications Acetaminophen (Tylenol) 650 mg PO Q4H PRN PRN Reason: Pain or Fever Stop: 09/25/19 16:19 Last Admin: 08/31/19 20:41 Dose: 650 mg Documented by: Aspirin (Ecotrin Ectab) 81 mg PO QAM [facility] Stop: 09/25/19 12:59 Last Admin: 09/02/19 09:45 Dose: 81 mg Documented by: Atorvastatin Calcium (Lipitor) 80 mg PO QPM [facility] Stop: 09/25/19 20:59 Last Admin: 09/01/19 20:39 Dose: 80 mg Documented by: Carvedilol (Coreg) 25 mg PO BID [facility] Stop: 09/25/19 12:59 Last Admin: 09/02/19 09:45 Dose: 25 mg Documented by: Clopidogrel Bisulfate (Plavix) 75 mg PO QAM [facility] Stop: 09/25/19 12:58 Last Admin: 09/02/19 09:46 Dose: 75 mg Documented by: Docusate Sodium (Colace) 100 mg PO BID [facility] Stop: 09/30/19 20:59 Last Admin: 09/02/19 09:45 Dose: Not Given Documented by: Heparin Sodium (Porcine) (Heparin Sodium (Porcine)) 5,000 units SQ Q12 [facility] Stop: 09/26/19 08:59 Last Admin: 09/02/19 09:47 Dose: 5,000 units Documented by: Hydralazine HCl (Apresoline) 100 mg PO TID [facility] Stop: 09/25/19 13:59 Last Admin: 09/02/19 09:44 Dose: 100 mg Documented by: Promethazine HCl 6.25 mg/ (Sodium Chloride) 50.25 mls @ 201 mls/hr IV Q6H PRN PRN Reason: Nausea And Vomiting Stop: 09/25/19 16:19 Isosorbide Mononitrate (Imdur Extended Rel) 60 mg PO QAM [facility] Stop: 09/25/19 12:59 Last Admin: 09/02/19 09:45 Dose: 60 mg Documented by: Nitroglycerin (Nitrostat) 0.4 mg SL UD PRN PRN Reason: Chest Pain Stop: 09/25/19 16:19 Prednisone (Prednisone) 20 mg PO QAM [facility] Stop: 10/02/19 12:14 Torsemide (Demadex) 10 mg PO DAILY [facility] Stop: 10/02/19 08:59 Last Admin: 09/02/19 09:46 Dose: 10 mg Documented by: PG Care Time/CCT Total # of Minutes Spent Total Time Spent with Patient: Total time spent is greater than 50% in coordination of care (as documented) at patient's floor/unit and/or counseling patient: Coding Level of Care Code 53694 Subseq Hosp Care Lvl 3 Diagnoses Acute respiratory failure with hypoxemia J96.01 Non-ST elevation CA (NSTEMI) I21.4 (HFpEF) heart failure with preserved ejection fraction I50.30 Nausea & vomiting R11.2 Vomiting Intractability: non-intractable Vomiting type: unspecified Chronic kidney disease, stage IV (severe) N18.4 Hypertension I10 Sleep apnea G47.30 Lone atrial fibrillation I48.91 Umbilical hernia K42.9 Gout M10.9 Venous stasis dermatitis of both lower extremities I87.2 Thickened endometrium R93.89 Anemia D64.9 Ankle pain, right M25.571 DVT prophylaxis Z29.9 (1) Nausea & vomiting Vomiting Intractability: non-intractable Vomiting type: unspecified Qualified Code(s): R11.2 - Nausea with vomiting, unspecified
[2019-09-02] MEDS: predniSONE 20 MG TAB PO SCH (13:03)
[2019-09-02] MEDS: ACETAMINOPHEN 325 MG TAB PO PRN (16:29)
[2019-09-02] MEDS: ATORVASTATIN 40 MG TAB PO SCH (21:59)
[2019-09-03 05:01] LABS: BUN Creatinine Ratio 26.8 (10-20); Calcium 7.8 mg/dl (8.5-10.1); Creatinine Clr Calc Pharmacy 10.5 ml/min; Est GFR (African American) 10.2; Est GFR (Non-African American) 8.8; Potassium 4.5 mmol/L (3.5-5.1)
[2019-09-03] MEDS: HydrALAZINE TAB 50 MG TAB PO SCH ×3 (09:19→20:50)
[2019-09-03] MEDS: DOCUSATE SODIUM 100 MG CAP PO SCH ×2 (09:19→21:15)
[2019-09-03] MEDS: ASPIRIN 81 MG ECTAB PO SCH (09:20)
[2019-09-03] MEDS: TORSEMIDE 10 MG TAB PO SCH (09:20)
[2019-09-03] MEDS: carvediloL 25 MG TAB PO SCH ×2 (09:20→20:50)
[2019-09-03] MEDS: CLOPIDOGREL BISULFATE 75 MG TAB PO SCH (09:21)
[2019-09-03] MEDS: ISOSORBIDE MONO EXTENDED REL 60 MG TABCR PO SCH (09:21)
[2019-09-03] MEDS: predniSONE 20 MG TAB PO SCH (09:21)
[2019-09-03] MEDS: HEPARIN SOD 5,000 UNIT/0.5 ML VIAL SQ SCH ×2 (09:22→21:11)
--- NOTE | 2019-09-03 10:50 | Nephrology Progress Note ---
Date of Service September 03, 2019 Assessment & Plan (1) Chronic kidney disease, stage IV (severe): * Serum Cr remains stable at 4.1 (baseline 2.5). Renal impairment is due to HTN, microvascular disease and poor perfusion associated w/ diastolic heart failure * Electrolyte balance is acceptable at this time. No uremic symptoms. No acute indication for WAREHOUSE TRAINER at this time * Clinically volume contracted. Lungs CTA on exam. Breathing comfortably on RA. Will always have LE swelling due to pulmonary HTN and high R sided heart pressure. Need to avoid over diuresis. Will reduce Torsemide to 5 mg daily * Discussed vascular access and WAREHOUSE TRAINER in detail w/ patient. She is agreeable to dialysis if needed. Will consider vascular access creation once recovered from current illness and physically stronger. Family updated this morning (2) Chronic diastolic CHF (congestive heart failure): * RONY/ARB withheld due to advanced CKD (3) Anemia: * Completed 1g IV Venofer * 10,000 units Epogen SQ x 1 given 09/01 * Monitor H&H (4) Hydronephrosis of left kidney: * L ureteral stent in place Admission and Anticipated Discharge Date Admission Date: August 26, 2019 Subjective Ms. Watson was seen & examined in her hospital room this morning. She was breathing comfortably on RA. Ms. Watson reports continued response to oral Torsemide. She is net 4.2 L negative since admission. Ms. Greco hopes to begin strengthening with PT today Review of Systems Constitutional: + weakness Eyes: no problem reported Ear, Nose, Mouth, Throat: no problem reported Respiratory: no dyspnea Cardiovascular: + edema; no chest pain Gastrointestinal: no abdominal pain, no nausea, no vomiting and no diarrhea/loose stools Genitourinary: no dysuria and no hematuria Musculoskeletal: no back pain Integumentary: no rash Neurologic: no dizziness and no confusion Physical Exam Constitutional: + frail appearing; not in distress Eyes: PERRL, conjunctivae normal, anicteric sclerae ENMT: external ear and nose normal, oropharynx normal Neck: trachea midline, no thyromegaly Respiratory: normal respiratory effort, lungs clear to auscultation Cardiovascular: Rate/Rhythm: regular rate and regular rhythm Extremities: + edema (2+ pretibial pitting edema) Gastrointestinal (Abdomen): normal bowel sounds, soft, nontender, no hepatosplenomegaly Musculoskeletal: Extremities: no cyanosis Skin: no rashes, warm and dry Neurologic: awake; not confused Results & Data ([facility]) Vital Signs (Past 12 Hours) Vital Signs Temp Pulse Pulse Pulse Resp BP Pulse Ox 09/03/19 09:18 67 131/62 09/03/19 07:38 36.5 C 67 16 131/65 95 09/03/19 03:41 66 16 96 09/02/19 22:56 36.3 C L 66 14 131/61 96 Laboratory Results Laboratory Tests 09/03/19 04:07 Sodium 139 Potassium 4.5 Chloride 106 BUN 116 H Creatinine 4.34 H PG Care Time/CCT Total # of Minutes Spent Total Time Spent with Patient: Total time spent is greater than 50% in coordination of care (as documented) at patient's floor/unit and/or counseling patient: Coding Level of Care Code 87701 Subseq Hosp Care Lvl 3 Diagnoses Chronic kidney disease, stage IV (severe) N18.4 Chronic diastolic CHF (congestive heart failure) I50.32 Anemia D64.9 Hydronephrosis of left kidney N13.30
--- NOTE | 2019-09-03 13:41 | Hospitalist Progress Note ---
Date of Service September 03, 2019 Assessment & Plan (1) Acute respiratory failure with hypoxemia: due to pulmonary edema, initially thought to have aspiration pneumonitis but this is ruled out -supplemental oxygen, breathing is not labored Chronically on 2 l oxygen, uses CPAP HS breathing well today on room air acute component appears to be resolved for several days, lungs clear (2) Non-ST elevation [place] (NSTEMI): Troponin 2.88 on admission, likely myocardial demand ischemia and less likely ACS given the hypoxia, recent nausea/vomiting With known underlying CAD, status post TOYA to the RCA x2 ECG with LBBB -Continue home aspirin, Plavix, atorvastatin, carvedilol, isosorbide, hydralazine - serial troponin did not rise -Started on heparin drip in the ER- discontinue -cardiology consultation, renal function prevents left heart cath patient stable, no chest pain or pressure (3) (HFpEF) heart failure with preserved ejection fraction: Some component of acute on chronic diastolic CHF, has small bilateral pleural effusions she has JVD, significant lower extremity edema and pulmonary rales -Only takes torsemide once a day about 4 times a week rather than the twice daily as prescribed nephrology following completed several days of Lasix IV, diuresing well, > 1 liter a day change back to Torsemide 10mg PO BID, continues to have adequate UO reduced the Torsemide to 10mg daily now reduced to 5mg daily, Dr. Alvarado feels she is intravascularly contracted Cr is 4.3 today, electrolytes stable plan to remove bush tomorrow morning no further diuresis needed, intravascularly contracted, lungs clear will always have lower extremity edema due to Pulm HTN and right sided failure continue Torsemide 5mg daily on discharge (4) Nausea & vomiting: Initially with abdominal pain, now resolved. No leukocytosis here, LFTs are normal, lipase normal. CT of the abdomen/pelvis without contrast does not show any evidence of colitis, diverticulitis, or obstruction. She did have associated periumbilical pain at the site of her hernia when it first started. Question if had a partial small bowel obstruction at that time which is now resolved. Abdominal pain completely resolved and hernia is reducible. Lactate is negative. Nausea is now improved eating well, passing flatus, had a BM / appetite is better today (5) Chronic kidney disease, stage IV (severe): Baseline creatinine used to be 2.3-2.5, but in the last month has gone up to 3.4-3.6 This did not change despite changing out her left ureteral stent 2 weeks ago with urology There is no hydronephrosis or blockage on CT abdomen/pelvis on admission history of bilateral renal cysts -Consult nephrology now appears to have VIVIAN on CKD stage IV, may be advancing to CKD stage V nephrology discussed FLEXO OPERATOR with her in detail, she is agreeable to vascular access creation once she recovers from this hospitalization Cr up at 4.34 today, electrolytes acceptable change diuretic to Torsemide 5mg PO daily (6) Hypertension: Continue home meds of carvedilol, isosorbide, hydralazine BP stable (7) Sleep apnea: -We will order CPAP at 3 cm H2O with 2 L oxygen connected at bedtime (8) Lone atrial fibrillation: Many years ago, thought to be due to hypomagnesemia currently in NSR with LBBB also history of VT but no recurrence sine RVOT ablation (9) Umbilical hernia: As above, is reducible (10) Gout: acute flare on 08/31 treated with Colchicine 0.6mg x 1 and Prednisone 20mg favorable response, less pain today will give Prednisone 20mg daily, today is day 3, give 7 days total, last dose 09/06 (11) Venous stasis dermatitis of both lower extremities: - (12) Thickened endometrium: Incidentally noted to be thickened on CT scan -Needs outpatient pelvic ultrasound and gynecology follow-up if desired (13) Anemia: Likely secondary to chronic kidney disease Hemoglobin fairly stable here will give EPO as needed per nephrology (14) Ankle pain, right: new complaint 08/31, has a h/o gouty arthritis responded well to a single dose of Colchicine 0.6mg, cannot re-dose due to Cr Cl of 10 give Prednisone 20mg will continue Prednisone x 7 days total, last dose would be 09/06 (15) DVT prophylaxis: transition to bid heparin sc DNR/DNI as per his discussion with patient Plan: agrees to rehab, plan for discharge on Sunday 09/03 ultimate goal is to return home with her daughter updated her son Issac Watson periodically during stay, he knows she will be discharged tomorrow will need to have follow up with nephrology in 2 weeks, discuss vascular access creation for HD in near future Torsemide has been reduced to 5mg daily Prednisone 20mg daily until 09/06 for acute gout flare, responding well Admission and Anticipated Discharge Date Admission Date: August 26, 2019 Subjective patient feeling good, right ankle pain improving with Prednisone she is eating well, moving bowels, no nausea, no chest pain, no dyspnea at rest on room air labs reviewed, Cr stable at 4.[address] Alvarado, will reduced Torsemide to 5mg daily, will arrange follow up with nephrology to discuss getting vascular access HD likely in her future, not right now electrolytes are stable plan for discharge to SNF tomorrow for rehab, patient agrees with this plan Review of Systems Review of Systems: All systems reviewed & are unremarkable except as noted in HPI & below Respiratory: + dyspnea on exertion; no cough and no dyspnea Cardiovascular: + edema; no chest pain Gastrointestinal: no abdominal pain, no nausea, no vomiting, no constipation and no diarrhea/loose stools Musculoskeletal: + joint pain (right ankle, better) Physical Exam Constitutional: well developed, well nourished, + overweight and + edematous; no acute distress Eyes: PERRL, conjunctivae normal, anicteric sclerae ENMT: external ear and nose normal, oropharynx normal Neck: trachea midline, no thyromegaly Respiratory: normal respiratory effort; no respiratory distress, no labored breathing and no cough Auscultation: lungs clear to auscultation bilaterally and + diminished lung sounds (bases) Cardiovascular: Rate/Rhythm: regular rate and regular rhythm Heart Sounds: normal S1 and normal S2; no murmur Extremities: normal capillary refill and + edema (pitting to mid shins, improving) Gastrointestinal (Abdomen): normal bowel sounds, soft, nontender, no hepatosplenomegaly Musculoskeletal: no cyanosis or clubbing, extremities motor strength 5/5 Ankle: + effusion (right ankle) and + limited ROM of ankle (right ankle, due to pain) Skin: no rashes, warm and dry Neurologic: patellar DTR's 2+ bilat, sensation intact and PERRL, EOMI, accommodation nl, no face palsy, no dysarthria Psychiatric: A+Ox3, euthymic affect Lymphatic: no cervical or axillary lymphadenopathy Results & Data Results & Data ([facility]) Vital Signs (Past 12 Hours) Vital Signs Temp Pulse Pulse Resp BP Pulse Ox 09/03/19 09:18 67 131/62 09/03/19 07:38 36.5 C 67 16 131/65 95 09/03/19 03:41 66 16 96 Laboratory Results Laboratory Results - last 24 hr 09/03/19 04:07 Sodium 139 Potassium 4.5 Chloride 106 Carbon Dioxide 26 Anion Gap 7.0 BUN 116 H Creatinine 4.34 H Est Cr Clr Drug Dosing 10.5 Est GFR ( Amer) 10.2 Est GFR (Non-Af Amer) 8.8 BUN/Creatinine Ratio 26.8 H Glucose 134 H Calcium 7.8 L Medications Administered Current Inpatient Medications Acetaminophen (Tylenol) 650 mg PO Q4H PRN PRN Reason: Pain or Fever Stop: 09/25/19 16:19 Last Admin: 09/02/19 16:29 Dose: 650 mg Documented by: Aspirin (Ecotrin Ectab) 81 mg PO QAM [facility] Stop: 09/25/19 12:59 Last Admin: 09/03/19 09:20 Dose: 81 mg Documented by: Atorvastatin Calcium (Lipitor) 80 mg PO QPM [facility] Stop: 09/25/19 20:59 Last Admin: 09/02/19 21:59 Dose: 80 mg Documented by: Carvedilol (Coreg) 25 mg PO BID [facility] Stop: 09/25/19 12:59 Last Admin: 09/03/19 09:20 Dose: 25 mg Documented by: Clopidogrel Bisulfate (Plavix) 75 mg PO QAM [facility] Stop: 09/25/19 12:58 Last Admin: 09/03/19 09:21 Dose: 75 mg Documented by: Docusate Sodium (Colace) 100 mg PO BID [facility] Stop: 09/30/19 20:59 Last Admin: 09/03/19 09:19 Dose: Not Given Documented by: Heparin Sodium (Porcine) (Heparin Sodium (Porcine)) 5,000 units SQ Q12 [facility] Stop: 09/26/19 08:59 Last Admin: 09/03/19 09:22 Dose: 5,000 units Documented by: Hydralazine HCl (Apresoline) 100 mg PO TID [facility] Stop: 09/25/19 13:59 Last Admin: 09/03/19 09:19 Dose: 100 mg Documented by: Promethazine HCl 6.25 mg/ (Sodium Chloride) 50.25 mls @ 201 mls/hr IV Q6H PRN PRN Reason: Nausea And Vomiting Stop: 09/25/19 16:19 Isosorbide Mononitrate (Imdur Extended Rel) 60 mg PO [facility] Stop: 09/25/19 12:59 Last Admin: 09/03/19 09:21 Dose: 60 mg Documented by: Nitroglycerin (Nitrostat) 0.4 mg SL UD PRN PRN Reason: Chest Pain Stop: 09/25/19 16:19 Prednisone (Prednisone) 20 mg PO [facility] Stop: 10/02/19 12:29 Last Admin: 09/03/19 09:21 Dose: 20 mg Documented by: Torsemide (Demadex) 5 mg PO [facility] Stop: 10/03/19 08:59 Last Admin: 09/03/19 09:20 Dose: 5 mg Documented by: PG Care Time/CCT Total # of Minutes Spent Total Time Spent with Patient: Total time spent is greater than 50% in coordination of care (as documented) at patient's floor/unit and/or counseling patient: Coding Level of Care Code 18998 Subseq Hosp Care Lvl 2 Diagnoses Acute respiratory failure with hypoxemia J96.01 Non-ST elevation TX (NSTEMI) I21.4 (HFpEF) heart failure with preserved ejection fraction I50.30 Nausea & vomiting R11.2 Vomiting Intractability: non-intractable Vomiting type: unspecified Chronic kidney disease, stage IV (severe) N18.4 Hypertension I10 Sleep apnea G47.30 Lone atrial fibrillation I48.91 Umbilical hernia K42.9 Gout M10.9 Venous stasis dermatitis of both lower extremities I87.2 Thickened endometrium R93.89 Anemia D64.9 Ankle pain, right M25.571 DVT prophylaxis Z29.9 (1) Nausea & vomiting Vomiting Intractability: non-intractable Vomiting type: unspecified Qualified Code(s): R11.2 - Nausea with vomiting, unspecified
[2019-09-03] MEDS: ATORVASTATIN 40 MG TAB PO SCH (20:50)
[2019-09-04 05:32] LABS: BUN Creatinine Ratio 27.7 (10-20); Calcium 7.9 mg/dl (8.5-10.1); Est GFR (African American) 10.8; Est GFR (Non-African American) 9.3; Potassium 4.2 mmol/L (3.5-5.1)
[2019-09-04] MEDS: TORSEMIDE 10 MG TAB PO SCH (09:12)
[2019-09-04] MEDS: predniSONE 20 MG TAB PO SCH (09:12)
[2019-09-04] MEDS: DOCUSATE SODIUM 100 MG CAP PO SCH (09:13)
[2019-09-04] MEDS: ISOSORBIDE MONO EXTENDED REL 60 MG TABCR PO SCH (09:13)
[2019-09-04] MEDS: carvediloL 25 MG TAB PO SCH (09:13)
[2019-09-04] MEDS: HydrALAZINE TAB 50 MG TAB PO SCH (09:13)
--- NOTE | 2019-09-04 09:37 | Nephrology Progress Note ---
Date of Service September 04, 2019 Assessment & Plan (1) Chronic kidney disease, stage IV (severe): * Serum Cr remains stable at 4.1 (baseline 2.5). Renal impairment is due to HTN, microvascular disease and poor perfusion associated w/ diastolic heart failure * Electrolyte balance is acceptable at this time. No uremic symptoms. No acute indication for SHOP COORDINATOR at this time * Clinically volume contracted. Lungs CTA on exam. Breathing comfortably on RA. Will always have LE swelling due to pulmonary HTN and high R sided heart pressure. Need to avoid over diuresis. * Torsemide has been reduced to 5 mg daily. No change to current dose * Discussed vascular access and SHOP COORDINATOR in detail w/ patient. She is agreeable to dialysis if needed. Will consider vascular access creation once recovered from current illness and physically stronger. Family updated this morning * If discharge is anticipated please have patient schedule Nephrology OV w/ Dr. Alvarado in 2 - 3 weeks ([phone]). Orders have been placed in EMR to have blood work completed at least 48 hours prior to visit (2) Chronic diastolic CHF (congestive heart failure): * RONY/ARB withheld due to advanced CKD (3) Anemia: * Completed 1g IV Venofer * 10,000 units Epogen SQ x 1 given 09/01 * Monitor H&H (4) Hydronephrosis of left kidney: * L ureteral stent in place Admission and Anticipated Discharge Date Admission Date: August 26, 2019 Subjective Ms. Watson was seen & examined in her hospital room this morning. She was breathing comfortably on RA. Ms. Watson reports continued response to oral Torsemide. She is net 4.2 L negative since admission. Ms. Watson reports freq uent loose stool since taking stool softener yesterday. Review of Systems Constitutional: + weakness Eyes: no problem reported Ear, Nose, Mouth, Throat: no problem reported Respiratory: no cough and no dyspnea Cardiovascular: + edema; no chest pain Gastrointestinal: no abdominal pain, no nausea, no vomiting and no diarrhea/loose stools Genitourinary: no dysuria and no hematuria Musculoskeletal: no back pain Integumentary: no rash Neurologic: no falls, no dizziness and no confusion Physical Exam Constitutional: + frail appearing; not in distress Eyes: PERRL, conjunctivae normal, anicteric sclerae ENMT: external ear and nose normal, oropharynx normal Neck: trachea midline, no thyromegaly Respiratory: normal respiratory effort, lungs clear to auscultation Cardiovascular: Rate/Rhythm: regular rate and regular rhythm Extremities: + edema (2+ pretibial pitting edema) Gastrointestinal (Abdomen): normal bowel sounds, soft, nontender, no hepatosplenomegaly Musculoskeletal: Extremities: no cyanosis Skin: no rashes, warm and dry Neurologic: awake; not confused Results & Data ([facility]) Vital Signs (Past 12 Hours) Vital Signs Temp Pulse Pulse Pulse Resp BP Pulse Ox 09/04/19 07:04 36.7 C 66 16 127/62 94 09/04/19 03:58 67 16 97 09/03/19 23:55 36.4 C L 67 14 156/63 H 95 09/03/19 22:26 65 16 97 Laboratory Results Laboratory Tests 09/02/19 09/04/19 06:30 04:36 Sodium 139 Potassium 4.2 Chloride 106 Carbon Dioxide 26 BUN 114 H Creatinine 4.13 H Glucose 126 H Calcium 7.9 L Albumin 2.1 L PG Care Time/CCT Total # of Minutes Spent Total Time Spent with Patient: Total time spent is greater than 50% in coordination of care (as documented) at patient's floor/unit and/or counseling patient: Coding Level of Care Code 19853 Subseq Hosp Care Lvl 3 Diagnoses Chronic kidney disease, stage IV (severe) N18.4 Chronic diastolic CHF (congestive heart failure) I50.32 Anemia D64.9 Hydronephrosis of left kidney N13.30
--- NOTE | 2019-09-04 09:59 | Cardiology Progress Note ---
Date of Service September 04, 2019 Assessment & Plan (1) CAD (coronary artery disease), [place] coronary artery: -mild troponin leak (3.8) at time of presentation, but new area of apical akinesis. -suspect supply/demand mismatch. -continue conservative medical care. -history of IPMI, RCA stents x2, February 2012. (2) Chronic diastolic CHF (congestive heart failure): -euvolemic at this time. -will be discharged on torsemide 5 mg daily. -preserved LV function on echocardiogram. (3) Hypertension: -adequate control on current regimen. (4) Lone atrial fibrillation: -solitary event occurred at the time of an electrolyte disturbance in December 2013. -not on long-term anticoagulation for reason. Admission and Anticipated Discharge Date Admission Date: August 26, 2019 Subjective The patient is resting comfortably in the bedside chair without complaints of chest pain or dyspnea. She is anxious for hospital discharge. Physical Exam Physical Exam: In general this is an obese white female in no acute distress. HEENT exam is negative. Neck is supple with full carotid upstrokes. There are no carotid bruits. No jugular venous distention. There is no thyromegaly. Cardiovascular exam reveals a regular rhythm with a normal S1 and S2. No S3, S4, or murmurs are noted. Lungs are clear without rales, rhonchi, or wheezes. Abdomen is benign without bruits. Extremities reveal intact radial artery pulses bilaterally. There is 1-2+ nonpitting edema of the lower extremities Results & Data ([facility]) Vital Signs (Past 12 Hours) Vital Signs Temp Pulse Pulse Pulse Resp BP Pulse Ox 09/04/19 07:04 36.7 C 66 16 127/62 94 09/04/19 03:58 67 16 97 09/03/19 23:55 36.4 C L 67 14 156/63 H 95 09/03/19 22:26 65 16 97 PG Care Time/CCT Total # of Minutes Spent Total Time Spent with Patient: Total time spent is greater than 50% in coordination of care (as documented) at patient's floor/unit and/or counseling patient: Coding Level of Care Code 90078 Subseq Hosp Care Lvl 3 Diagnoses CAD (coronary artery disease), [place] coronary artery I25.10 Chronic diastolic CHF (congestive heart failure) I50.32 Hypertension I10 Lone atrial fibrillation I48.91
[2019-09-04] MEDS: ASPIRIN 81 MG ECTAB PO SCH (10:31)
[2019-09-04] MEDS: CLOPIDOGREL BISULFATE 75 MG TAB PO SCH (10:31)
[2019-09-04] MEDS: HEPARIN SOD 5,000 UNIT/0.5 ML VIAL SQ SCH (10:31)
--- NOTE | 2019-09-04 11:38 | Discharge Summary ---
Date of Service September 04, 2019 Admission HPI Per Admitting Provider This patient is an 84-year-old female with a history of CAD status post TOYA to the RCA, LBBB, HTN, CKD stage IV with indwelling left ureteral stent, right- sided heart failure, chronic diastolic CHF, lone atrial fibrillation, VT status post ablation, GURPREET on CPAP and nocturnal O2, chronic lower extremity edema/venous stasis, gout, anemia, complex renal cysts, OA, and vitamin D deficiency, who presents to the ER with over 12 hours of persistent nausea and vomiting with periumbilical abdominal pain. She reports eating about half of her tossed salad for lunch yesterday, and then almost immediately began vomiting after that x2. She had persistent nausea since 2 PM yesterday and has not eaten or drank anything since that time. She was able to take her evening pills yesterday, but did not take her torsemide. She also had 2 loose stools yesterday. Neither her vomit nor her stools were bloody or black. The periumbilical pain was around where her hernia is, but that has since completely resolved. She started having shortness of breath shortly after she vomited and it became much worse today. She reports she did cough up some sputum that had red blood in it x2 last evening. In the ER, she was found to be hypoxic and was placed on oxygen with improvement in her oxygenation and dyspnea. Her creatinine is around its new baseline of 3.4, a lactate was negative. Her LFTs were normal except for mild elevation of alkaline phosphatase. Her troponin was elevated at 2.88. Her chest x-ray seems consistent with pulmonary edema, and a CT scan without contrast of the abdomen/pelvis was negative for obstruction, colitis, or diverticulitis. Her umbilical hernia is completely reducible on examination. She also was incidentally noted to have a thickened endometrium, as well as small bilateral pleural effusions. She denies any fevers/sweats/chills and no recent sick contacts. She has been isolating herself in her house for several months with the COVID pandemic. She has not gone out and her family brings her groceries. She lives with her daughter who is also retired and does not go out. She denies any chest pain, no lightheadedness, no headaches or sore throat. She was started on a heparin drip in the ER in case of acute coronary syndrome, and was given IV Phenergan with good result and resolution of nausea. Principal Diagnosis Nausea/vomiting, acute and chronic respiratory failure with hypoxia, acute on chronic heart failure with preserved ejection fraction, myocardial demand ischemia, acute gout flare, acute kidney injury in the setting of CKD stage IV Discharge Exam Constitutional WD/WN, vitals as above + obese ENMT Ears: no hearing impairment and no external ear abnormality Nose: no external nose abnormality and no nasal discharge Neck trachea midline, no thyromegaly Respiratory normal respiratory effort, lungs clear to auscultation normal respiratory effort Cardiovascular Rate/Rhythm: regular rate and regular rhythm Heart Sounds: + murmur (2/6 systolic at the lower left sternal border) Extremities: + edema (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) Chest (Breasts) Chest: normal inspection of chest Gastrointestinal (Abdomen) normal bowel sounds, soft, nontender, no hepatosplenomegaly Inspection/Auscultation: normal bowel sounds; + abdomen abnormal to inspection (Surgical scars noted) Percussion/Palpation: abdomen soft and + hernia (Umbilical hernia of moderate size which is easily reducible); abdomen nontender, no guarding and abdomen not rigid Musculoskeletal Extremities: no cyanosis and no clubbing Skin no rashes, warm and dry (Chronic venous stasis and ichthyosis of the bilateral lower extremities, toenails with onychomycosis ) Neurologic moves all extremities and awake; no focal motor deficits Psychiatric A+Ox3, euthymic affect Lymphatic no lymphedema Discharge Data Allergies Allergy/AdvReac Type Severity Reaction Status Date / Time sulfamethoxazole Allergy Intermediate felt like Verified 08/26/19 10:55 walking on eggs trimethoprim Allergy Intermediate felt like Verified 08/26/19 10:55 walking on eggs Bactrim Allergy Unknown felt like Verified 11/04/17 07:47 walking on eggs lisinopril Allergy Unknown UNSURE OF Verified 08/26/19 10:55 REACTION streptomycin Allergy Unknown UNSURE Verified 08/26/19 10:55 REACTION Consultations 08/26/19 12:04 ED Decision to Admit Stat 08/26/19 16:20 Consult Cardiology Routine Consult Case Management - Discharge Planning Routine Consult Nephrology Routine Ordered Studies 08/26/19 10:27 CT abd pelvis wo con Stat Echocardiogram KUB x-ray Chest x-ray Hospital Course (1) Acute respiratory failure with hypoxemia: due to pulmonary edema, initially thought to have aspiration pneumonitis but this is ruled out -supplemental oxygen, breathing is not labored Chronically on 2 l oxygen at bedtime, uses CPAP HS Continues to be breathing well today on room air acute component appears to be resolved for several days, lungs clear (2) Non-ST elevation ME (NSTEMI): Troponin 2.88 on admission, likely myocardial demand ischemia and less likely ACS given the hypoxia, recent nausea/vomiting With known underlying CAD, status post TOYA to the RCA x2 ECG with LBBB chronic -Continue home aspirin, Plavix, atorvastatin, carvedilol, isosorbide, hydralazine - serial troponin did not rise -Started on heparin drip in the ER- discontinued shortly after arrival -cardiology consultation, renal function prevents left heart cath patient stable, no chest pain or pressure (3) (HFpEF) heart failure with preserved ejection fraction: Some component of acute on chronic diastolic CHF, has small bilateral pleural effusions she had JVD, significant lower extremity edema and pulmonary rales-acute component now resolved, with chronic lower extremity edema -Upon admission, stated that she only takes torsemide once a day about 4 times a week rather than the twice daily as prescribed nephrology following completed several days of Lasix IV, diuresing well, > 1 liter a day changed back to Torsemide 10mg PO BID, continues to have adequate UO reduced the Torsemide to 5mg daily after nephrology/Dr. Alvarado feels she is intravascularly contracted Cr is 4.1 today, electrolytes stable Catheter has been removed no further diuresis needed, intravascularly contracted, lungs clear will always have lower extremity edema due to Pulm HTN and right sided failure continue Torsemide 5mg daily on discharge -Continue follow-up with cardiology after discharge (4) Nausea & vomiting: Initially with abdominal pain, now resolved. Upon admission-no leukocytosis here, LFTs are normal, lipase normal. CT of the abdomen/pelvis without contrast does not show any evidence of colitis, diverticulitis, or obstruction. She did have associated periumbilical pain at the site of her hernia when it first started. Question if had a partial small bowel obstruction at that time which is now resolved. Abdominal pain completely resolved and hernia is reducible. Lactate is negative. Nausea is now lately resolved and tolerating p.o. eating well, passing flatus, is passing several bowel movements a day with each meal-may be antibiotic associated diarrhea, but does not seem consistent with C. difficile (5) Chronic kidney disease, stage IV (severe): Baseline creatinine used to be 2.3-2.5, but in the last month has gone up to 3.4-3.6 This did not change despite changing out her left ureteral stent 2 weeks ago with urology There is no hydronephrosis or blockage on CT abdomen/pelvis on admission history of bilateral renal cysts -Consult nephrology now appears to have VIVIAN on CKD stage IV, may be advancing to CKD stage V nephrology discussed BARREL PLATER with her in detail, she is agreeable to vascular access creation once she recovers from this hospitalization Cr up to 4.1 on the day of discharge - electrolytes acceptable change diuretic to Torsemide 5mg PO daily -Needs follow-up with nephrology in 2 weeks with BMP drawn 2 days prior to that She will likely need AV fistula placement in the near future (6) Hypertension: Continue home meds of carvedilol, isosorbide, hydralazine BP stable (7) Sleep apnea: -Continue CPAP at 3 cm H2O with 2 L oxygen connected at bedtime (8) Lone atrial fibrillation: Many years ago, thought to be due to hypomagnesemia currently in NSR with LBBB also history of VT but no recurrence sine RVOT ablation (9) Umbilical hernia: As above, is reducible (10) Gout: acute flare on 08/31 treated with Colchicine 0.6mg x 1 and Prednisone 20mg favorable response, less pain today will give Prednisone 20mg daily, today is day 4, give 7 days total, last dose 09/06 (11) Venous stasis dermatitis of both lower extremities: -Noted, chronic (12) Thickened endometrium: Incidentally noted to be thickened on CT scan on admission -Needs outpatient pelvic ultrasound and gynecology follow-up if desired (13) Anemia: Likely secondary to chronic kidney disease Hemoglobin with slight drop to 8.7 by the day of discharge, is normocytic Received Epogen and IV Venofer -Follow CBC within 2 weeks (14) Ankle pain, right: new complaint 08/31, has a h/o gouty arthritis responded well to a single dose of Colchicine 0.6mg, cannot re-dose due to Cr Cl of 10 give Prednisone 20mg will continue Prednisone x 7 days total, last dose would be 09/06 (15) DVT prophylaxis: Heparin SQ was used DNR/DNI as per discussion with patient Plan: agrees to rehab, plan for discharge on Sunday 09/03 ultimate goal is to return home with her daughter Stable for discharge today COVID-19 test pending at the time of discharge for rehab placement Total Time Total Time Spent Total Time Spent (In Minutes): Greater than 30 minutes Total Time Includes: Examination of the Patient, Discharge Planning and Medication Reconciliation Discharge Plan Discharge Items Patient Disposition: Transfer Half-Way Fac Reason For Visit: NAUSEA/VOMITING, ELEVATED TROPONIN, HYPOXIA Discharge Diagnosis: Nausea/vomiting, acute hypoxic respiratory failure, acute on chronic heart failure with preserved ejection fraction, myocardial demand ischemia, acute gout flare, acute kidney injury in the setting of CKD stage IV Condition on Discharge: Fair Activity: As commented below Lifting: Gradually increase as tolerated Bathing: No limitations Exercise/Sports: Gradually increase as tolerated Exercise Comment: With PT/OT Weightbearing: Full weightbearing Non-emergency contact: Primary Care Provider, Event Operations Manager and [employer] Call non-emergency contact if: you have any medication questions, your symptoms worsen, your pain is not controlled, your pain is worsening, your pain is unusual for you, your pain is concerning for you and your temperature is above 101.5 Follow-up/Referrals: Gordy Alvarado MD [Physician] - (Please follow-up in 2 weeks. You should have blood work drawn 2 days prior to this appointment.) Nick Lopez MD [Physician] - (Please follow-up within 1 month) Bhavin Prince, DO [Primary Care Provider] - Diet: Low Potassium (2gm) and Low Sodium (2gm) Addtl Attending Provider Instructions: Please have a BMP and CBC drawn in 7 to 10 days. Please follow-up with nephrology in 2 weeks. You will likely need to have an AV fistula created for eventual dialysis treatment. Continue the prednisone for 3 more days for the acute gout flare in your right ankle. Your torsemide dose has been changed to 5 mg once daily. Incidentally noted was that the lining of your uterus is a bit thicker than normal for your age. Please follow-up with an outpatient primary care physician or radiographer angiogram on this within the month. Call your Primary Care doctor if any of the following symptoms or problems start or get worse: * Shortness of breath or difficulty breathing * Wake up at night short of breath * Chest pain * Cough * Swelling of your hands, feet, or legs * More fatigued or tired with your normal activity * Palpitations - sudden fast heart beats WEIGHT * Weigh yourself every morning after using the bathroom. * Use the same scale. * Wear the same amount of clothing. * Write your weight down on a chart. * Call your Primary Care doctor if you gain more than 2-3 pounds in 1-2 days. MEDICATIONS * Use this discharge instruction sheet for medication instructions. * Take your medications at the time your doctor ordered. * Do not skip a dose of your medicines. * If you miss a dose of medicine, take it as soon as possible, but DO NOT DOUBLE A DOSE. * Read your medicine information when you get home. * Know all of the side effects of your medicine. If in doubt, ask your pharmacist * Call your Primary Care doctor's office if you have any side effects. * Be sure all of your doctors know what medicine and herbs you take (including cold, flu, and herbal medicine). Take the following with you to your follow-up doctor appointments: * Weight Chart * Medication List * List of questions Do not drink excessive alcohol, beer or wine. Pending Studies at Discharge: Yes (COVID-19 test) Stand-Alone Forms: My [facility] Skilled Items Patient informed of condition?: Yes DNR: Yes Discharge Level of Care: Skilled Communicable Disease: No Discharge Prognosis: Improving Lines: None Urinary Catheter: No Medications and DC Order Prescriptions: New acetaminophen 325 mg Tablet 650 mg PO Q4H PRN (Reason: pain) Qty: 30 RF: 0 torsemide 5 mg tablet 5 mg PO DAILY Qty: 30 RF: 0 prednisone 20 mg Tablet 20 mg PO QAM 3 Days Qty: 3 RF: 0 Continued carvedilol 25 mg tablet 25 mg PO BID Qty: 180 RF: 3 isosorbide mononitrate 60 mg tablet extended release 24 hr 60 mg PO QAM Qty: 90 RF: 3 atorvastatin 80 mg tablet 80 mg PO QPM Qty: 90 RF: 3 ergocalciferol (vitamin D2) 1,250 mcg (50,000 unit) capsule 50,000 unit PO MONTHLY Qty: 3 RF: 1 hydralazine 50 mg tablet 100 mg PO TID Qty: 560 RF: 3 (DME) CPAP Supplies Misc See Rx Instructions .ROUTE .MEDSUPPLY Qty: 1 RF: 0 aspirin [Aspir-81] 81 mg Tablet,Delayed Release (Dr/Ec) 81 mg PO QAM RF: 0 clopidogrel 75 mg tablet 75 mg PO QAM RF: 0 Discontinued torsemide 10 mg tablet 10 mg PO BID Qty: 60 RF: 5 magnesium 200 mg Tablet 400 mg PO BID RF: 0 Discharge Orders: Discharge Order (Routine); Ordered 09/04/19 Ordered By: Lashon Jorgensen Admission Data Admit Date/Time: 08/26/19 12:59 Attending Provider: Lashon Jorgensen Admit Provider: Lashon Jorgensen Primary Care Provider: Bhavin Prince Other Providers: Lashon Jorgensen ; Simon Delong ; Semaj Nascimento ; Robert Luna [facility] ; [facility] Coding Level of Care Code D/C Day Management >30 mins Diagnoses Acute respiratory failure with hypoxemia J96.01 Non-ST elevation ME (NSTEMI) I21.4 (HFpEF) heart failure with preserved ejection fraction I50.30 Nausea & vomiting R11.2 Vomiting Intractability: non-intractable Vomiting type: unspecified Chronic kidney disease, stage IV (severe) N18.4 Hypertension I10 Sleep apnea G47.30 Lone atrial fibrillation I48.91 Umbilical hernia K42.9 Gout M10.9 Venous stasis dermatitis of both lower extremities I87.2 Thickened endometrium R93.89 Anemia D64.9 Ankle pain, right M25.571 DVT prophylaxis Z29.9
== END 2019-09-04 14:16 | DRG 189 ==
LOC: ED 09:39 → 2S 12:59 → SUATTDRO 12:59 → 2S 15:08 → 3E 08-30 12:57

== ENCOUNTER 2019-09-26 16:33 | Inpatient (IN) ==
--- NOTE | 2019-09-26 17:05 | Emergency Department Note ---
Impression & Plan Urinary tract infection, Pulmonary edema, Hypoxia, Fever, Chronic kidney insufficiency ED Provider Note NAME: CAROL CARBALLO AGE: 84 SEX: F : 1935 ARRIVES VIA: Ambulance INFORMANT: Patient, the patient's son ED PROVIDER(S): Nick Bruner DO CHIEF COMPLAINT: Fever HPI: The patient is an 84-year-old female who presented to the emergency department by ambulance. Her son met her in the emergency department. The patient's son does give additional history. Apparently the patient was recently discharged from [facility] 3 days ago. She is currently at home but does not do much and stays mostly in a chair. The patient has been having worsening lower extremity swelling. When she was recently admitted to our facility she was found to have renal failure. The patient did not have dialysis at that time. She is had worsening pulmonary edema secondary to cardiac as well as renal issues. The patient was feeling quite bad overnight. She noticed chills and fever. She denies having any dysuria or frequency. She denies having any chest pain but does complain of difficulty breathing especially with lying flat which she is usually not able to do as well as exertion. She does of a small abrasion to the right leg. This appears to have significant erythema. She called her primary care physician because of the fever and was sent to the emergency department for further evaluation. She denies having any recent traveling. She was tested for COVID-19 multiple times because of her recent personal snf admission as well as her admission to our facility. ROS: See above HPI for pertinent positives & negatives. A total of 10 systems reviewed and were otherwise negative. PAST MEDICAL HISTORY: See Below PAST SURGICAL HISTORY: See Below FAMILY HISTORY: See Below SOCIAL HISTORY: See Below HOME MEDICATIONS: See Below ALLERGIES: See Below VITALS: See Below PHYSICAL EXAMINATION: GENERAL: Patient is awake alert in no acute distress patient is resting comfortably and showing no signs of anxiety EYES: The conjunctivae are clear. The pupils are round and reactive. EARS, NOSE, MOUTH AND THROAT: The nose is without any evidence of any deformity. Mucous membranes are moist. NECK: The neck is nontender and supple. RESPIRATORY: Shallow respirations were noted. There were rales noted through the right lung field. Diminished breath sounds are noted at the left base with rales in the left upper lung field. There is no conversational dyspnea. CARDIOVASCULAR: Regular rate and rhythm was noted to auscultation. There was a systolic murmur suggested. GASTROINTESTINAL: The abdomen is soft. Abdomen is nontender. There was an umbilical hernia noted which was easily reducible and nontender. MUSCULOSKELETAL/EXTREMITIES: There is no evidence of gross deformity full range of motion is noted in the hips and shoulders. SKIN: Significant bilateral lower extremity edema was noted. Venous stasis changes were noted in both lower extremities but there was erythema noted over the right lower extremity. There is a small abrasion which appears to be healing slowly over the right anterior lower leg. NEUROLOGIC: Patient is awake alert and oriented person place and situation. MEDICAL DECISION MAKING: The patient is an 84-year-old female who presented to the emergency department by ambulance for an evaluation of generalized weakness and fever. The patient was found to have signs of urinary tract infection on urinalysis. She was treated with IV antibiotics. She was also found to have signs of pulmonary edema. She was placed on supplemental oxygen. The patient has very significant lower extremity edema and may have early cellulitis of the right leg. I discussed the patient's laboratory and radiographic studies with her. I also discussed her case with the on-call [facility] hospitalist. They have agreed to evaluate patient in the emergency department for further management and disposition Triage Nursing notes reviewed. Prior medical records reviewed Vital Signs: reviewed and remarkable for hypoxia and fever. Differential diagnosis: Viral syndrome, otitis, pharyngitis, pneumonia, influenza, meningitis, urinary tract infection, sepsis, bacteremia, as well as other pathologies. ER treatment provided: See below Diagnostics interpreted by me: ECG: EKG was obtained in the emergency department. My interpretation is normal sinus rhythm at 74 bpm. There were no PVCs. Left bundle branch block pattern was noted. There was no significant change compared to a tracing from August 262019. Cardiac Monitoring: An order was placed for continuous cardiac monitoring. The monitor shows a rate of 88 with sinus rhythm. Laboratory studies: As stated above and show below. Imaging studies: See below Consultation(s): 2044: I discussed this case with Dr. Nuñez. He is agreed to evaluate the patient in the emergency department for further management and disposition. Past Med/Surg History Medical History Anemia CHRONIC; baseline ~ 11 Chronic diastolic CHF (congestive heart failure) Chronic respiratory failure with hypoxia Gout History of nephrolithiasis (Inactive) History of ventricular tachycardia LBBB (left bundle branch block) CHRONIC Lone atrial fibrillation Myocardial Infarction IPMI S/P RCA STENTS X 2 (2011) Osteoarthritis Sleep apnea CPAP + O2 2L HS Umbilical hernia Venous stasis dermatitis of both lower extremities Vitamin D deficiency (Chronic) Surgical History H/O cardiac catheterization [address] [facility] and 03/21/2012 @ [facility] RCA STENTS X 2. H/O heart artery stent RCA STENTS X 2 03/21/2012 History of appendectomy History of cataract surgery BILATERAL History of cystoscopy CYSTO/STENT EXCHANGE 02/20/19 = MAC SEDATION AT [facility]. No complications per records. History of tonsillectomy Hx of prior ablation treatment RFA S/P RVOT VTACH (NO RECURRENCE SINCE 2014 ABLATION PER CARDIO) Family History Unknown Hypertension Other No family history of adverse response to anesthesia Social History Preferred Language: Macedonian Communication Ability: Effective Visual Impairment: No Limitations Hearing Ability: Normal Picker/Puller Required: No Beliefs That Will Affect Care: None marital status: / Current Living Situation: Family Current Living Situation Comment: lives with special needs daughter Feels Safe at Home: Yes Smoking Status: Never smoker Second Hand Exposure: No ; Hx Alcohol Use: No Hx Substance Use: No Childhood Exposure to Second-Hand Smoke: No Dental Care, Regularly: No Physical Activity Frequency: Does not Exercise Seatbelt Use: always Sunscreen Use: Yes Allergies Allergies Allergy/AdvReac Type Severity Reaction Status Date / Time sulfamethoxazole Allergy Intermediate felt like Verified 09/26/19 16:59 walking on eggs trimethoprim Allergy Intermediate felt like Verified 09/26/19 16:59 walking on eggs Bactrim Allergy Unknown felt like Verified 11/04/17 07:47 walking on eggs lisinopril Allergy Unknown UNSURE OF Verified 09/26/19 16:59 REACTION streptomycin Allergy Unknown UNSURE Verified 09/26/19 16:59 REACTION Home Meds Home Medications Medication Instructions Recorded Confirmed aspirin [Aspir-81] 81 mg PO QAM 12/24/17 09/26/19 clopidogrel 75 mg PO QAM 08/01/19 09/26/19 Saccharomyces boulardii [Florastor] 250 mg PO QAM 09/26/19 09/26/19 torsemide 5 mg PO QAM 09/26/19 09/26/19 Previous Rx's Medication Instructions Recorded miscellaneous medical supply #1 ea 04/12/19 carvedilol 25 mg tablet 25 mg PO BID #180 tab 04/24/19 isosorbide mononitrate 60 mg 60 mg PO QAM #90 tab 05/12/19 tablet,extended release 24 hr atorvastatin 80 mg tablet 80 mg PO QPM #90 tab 07/07/19 ergocalciferol (vitamin D2) 1,250 50,000 unit PO MONTHLY #3 cap 07/07/19 mcg (50,000 unit) capsule hydralazine 50 mg tablet 100 mg PO TID #560 tab 07/07/19 Results & Data (ED) Vital Signs Vital Signs - 24 hr 09/26/19 16:33 09/26/19 16:52 09/26/19 16:56 Temperature 38.4 C H Temperature Source Oral Pulse Rate 78 79 80 Pulse Rate [Apical] Pulse Rate from SpO2 Sensor 79 Respiratory Rate 22 24 25 H Respiratory Effort / Characteristics Non-Labored Respiratory Depth Normal Blood Pressure 210/84 H 210/54 H Blood Pressure [Left Arm] Blood Pressure Mean 126 119 Blood Pressure Mean [Left Arm] Blood Pressure Position Lying Pulse Oximetry 88 L 93 Oxygen Delivery Method Room Air Oxygen Flow Rate Sepsis Recent Fever Within 48 Hours Yes Sepsis New/Unexplained Change in Mental Status Yes Sepsis Action Taken by Nursing Physician Notified 09/26/19 17:00 09/26/19 17:01 09/26/19 17:15 Temperature Temperature Source Pulse Rate 78 77 78 Pulse Rate [Apical] Pulse Rate from SpO2 Sensor 76 76 77 Respiratory Rate 21 21 21 Respiratory Effort / Characteristics Respiratory Depth Blood Pressure 187/60 H Blood Pressure [Left Arm] Blood Pressure Mean 126 Blood Pressure Mean [Left Arm] Blood Pressure Position Pulse Oximetry 88 L 93 97 Oxygen Delivery Method Room Air Nasal Cannula Nasal Cannula Oxygen Flow Rate 2 4 Sepsis Recent Fever Within 48 Hours Sepsis New/Unexplained Change in Mental Status Sepsis Action Taken by Nursing 09/26/19 17:27 09/26/19 17:30 09/26/19 17:32 Temperature Temperature Source Pulse Rate 74 74 Pulse Rate [Apical] Pulse Rate from SpO2 Sensor 73 Respiratory Rate 19 18 Respiratory Effort / Characteristics Respiratory Depth Blood Pressure 182/66 H 181/64 H Blood Pressure [Left Arm] Blood Pressure Mean 108 122 Blood Pressure Mean [Left Arm] Blood Pressure Position Pulse Oximetry 97 97 98 Oxygen Delivery Method Nasal Cannula Nasal Cannula Nasal Cannula Oxygen Flow Rate 4 4 4 Sepsis Recent Fever Within 48 Hours Sepsis New/Unexplained Change in Mental Status Sepsis Action Taken by Nursing 09/26/19 18:00 09/26/19 18:14 09/26/19 18:15 Temperature Temperature Source Pulse Rate 68 68 70 Pulse Rate [Apical] Pulse Rate from SpO2 Sensor 68 68 69 Respiratory Rate 17 17 17 Respiratory Effort / Characteristics Respiratory Depth Blood Pressure 173/65 H 181/57 H Blood Pressure [Left Arm] Blood Pressure Mean 127 121 Blood Pressure Mean [Left Arm] Blood Pressure Position Pulse Oximetry 97 97 97 Oxygen Delivery Method Nasal Cannula Nasal Cannula Nasal Cannula Oxygen Flow Rate 4 4 4 Sepsis Recent Fever Within 48 Hours Sepsis New/Unexplained Change in Mental Status Sepsis Action Taken by Nursing 09/26/19 18:30 09/26/19 18:46 09/26/19 19:30 Temperature Temperature Source Pulse Rate 66 70 Pulse Rate [Apical] 64 Pulse Rate from SpO2 Sensor 66 70 Respiratory Rate 16 19 18 Respiratory Effort / Characteristics Respiratory Depth Blood Pressure 165/61 H 170/57 H Blood Pressure [Left Arm] 153/50 H Blood Pressure Mean 105 105 Blood Pressure Mean [Left Arm] 84 Blood Pressure Position Pulse Oximetry 97 97 97 Oxygen Delivery Method Nasal Cannula Oxygen Flow Rate 2 Sepsis Recent Fever Within 48 Hours Sepsis New/Unexplained Change in Mental Status Sepsis Action Taken by Nursing 09/26/19 20:16 Temperature Temperature Source Pulse Rate Pulse Rate [Apical] 68 Pulse Rate from SpO2 Sensor Respiratory Rate 18 Respiratory Effort / Characteristics Respiratory Depth Blood Pressure Blood Pressure [Left Arm] 156/52 H Blood Pressure Mean Blood Pressure Mean [Left Arm] 86 Blood Pressure Position Pulse Oximetry 98 Oxygen Delivery Method Nasal Cannula Oxygen Flow Rate 2 Sepsis Recent Fever Within 48 Hours Sepsis New/Unexplained Change in Mental Status Sepsis Action Taken by [facility] Medications Current Medication List: was personally reviewed by me Laboratory Data Attestation: I reviewed the patient's lab results. Result diagrams: 09/26/19 17:43 09/26/19 17:43 Lab Results 09/26/19 09/26/19 09/26/19 Range/Units 17:43 17:43 17:43 WBC 14.52 H (4.8-10.8) K/uL RBC 3.46 L (4.2-5.4) M/uL Hgb 10.2 L (12.0-16.0) g/dL Hct 34.3 L (37-47) % MCV 99.1 (80-100) fL MCH 29.5 (25-34) pg MCHC 29.7 L (32-36) g/dL RDW Std Deviation 60.9 H (36.4-46.3) fL RDW Coeff of Nicolasa 16.9 H (11.5-14.5) % Plt Count 145 (130-400) K/uL MPV 11.5 H (7.4-10.4) fL Immature Gran % (Auto) 0.4 % Neut % (Auto) 83.6 % Lymph % (Auto) 10.3 % [place] % (Auto) 5.6 % Eos % (Auto) 0.0 % Baso % (Auto) 0.1 % Neut # (Auto) 12.12 H (1.4-6.5) K/uL Lymph # (Auto) 1.50 (1.2-3.4) K/uL [place] # (Auto) 0.82 H (0.11-0.59) K/uL Eos # (Auto) 0.00 (0-0.5) K/uL Baso # (Auto) 0.02 (0-0.2) K/uL Immature Gran # (Auto) 0.06 H (0.00-0.02) K/uL ESR 10 (0-21) mm/hr PT 12.2 H (9.0-12.0) Seconds INR 1.2 H (0.9-1.1) APTT 25.8 (21.0-31.0) Seconds PTT Ratio 0.9 Sodium (136-145) mmol/L Potassium (3.5-5.1) mmol/L Chloride (98-107) mmol/L Carbon Dioxide (21-32) mmol/L Anion Gap (3-11) BUN (7-18) mg/dl Creatinine (0.6-1.2) mg/dl Est Cr Clr Drug Dosing ml/min Est GFR ( Amer) Est GFR (Non-Af Amer) BUN/Creatinine Ratio (10-20) Glucose (70-99) mg/dl Lactate (0.4-2.0) mmol/L Calcium (8.5-10.1) mg/dl Magnesium (1.8-2.4) mg/dl Total Bilirubin (0.2-1) mg/dl AST (15-37) U/L ALT (12-78) U/L Alkaline Phosphatase (45-117) U/L Troponin I (0-0.045) ng/ml C-Reactive Protein (0-0.29) mg/dl NT-Pro-B Natriuret Pep (0-1800) pg/ml Total Protein (6.4-8.2) gm/dl Albumin (3.4-5.0) gm/dl Globulin (2.5-4.0) gm/dl Albumin/Globulin Ratio (0.9-2) Procalcitonin (0-0.5) ng/ml Urine Color Urine Appearance (Clear) Urine pH (4.5-7.5) Ur Specific [place] (1.000-1.030) Urine Protein (Negative) Urine Glucose (UA) (Negative) Urine Ketones (Negative) Urine Blood (Negative) Urine Nitrite (Negative) Urine Bilirubin (Negative) Urine Urobilinogen (Negative) Ur Leukocyte Esterase (Negative) Urine WBC (Auto) (0-5) /hpf Urine RBC (Auto) (0-4) /hpf U Hyaline Cast (Auto) (0-5) /lpf U Epithel Cells (Auto) (0-5) /lpf Urine Bacteria (Auto) (Negative) Urine Yeast (None Prsent) 09/26/19 09/26/19 09/26/19 Range/Units 17:43 17:43 19:12 WBC (4.8-10.8) K/uL RBC (4.2-5.4) M/uL Hgb (12.0-16.0) g/dL Hct (37-47) % MCV (80-100) fL MCH (25-34) pg MCHC (32-36) g/dL RDW Std Deviation (36.4-46.3) fL RDW Coeff of Nicolasa (11.5-14.5) % Plt Count (130-400) K/uL MPV (7.4-10.4) fL Immature Gran % (Auto) % Neut % (Auto) % Lymph % (Auto) % [place] % (Auto) % Eos % (Auto) % Baso % (Auto) % Neut # (Auto) (1.4-6.5) K/uL Lymph # (Auto) (1.2-3.4) K/uL [place] # (Auto) (0.11-0.59) K/uL Eos # (Auto) (0-0.5) K/uL Baso # (Auto) (0-0.2) K/uL Immature Gran # (Auto) (0.00-0.02) K/uL ESR (0-21) mm/hr PT (9.0-12.0) Seconds INR (0.9-1.1) APTT (21.0-31.0) Seconds PTT Ratio Sodium 146 H (136-145) mmol/L Potassium 5.4 H (3.5-5.1) mmol/L Chloride 119 H (98-107) mmol/L Carbon Dioxide 23 (21-32) mmol/L Anion Gap 4.0 (3-11) BUN 69 H (7-18) mg/dl Creatinine 3.53 H (0.6-1.2) mg/dl Est Cr Clr Drug Dosing 13.9 ml/min Est GFR ( Amer) 13.0 Est GFR (Non-Af Amer) 11.3 BUN/Creatinine Ratio 19.6 (10-20) Glucose 177 H (70-99) mg/dl Lactate 1.4 (0.4-2.0) mmol/L Calcium 8.6 (8.5-10.1) mg/dl Magnesium 2.1 (1.8-2.4) mg/dl Total Bilirubin 0.6 (0.2-1) mg/dl AST 14 L (15-37) U/L ALT 13 (12-78) U/L Alkaline Phosphatase 105 (45-117) U/L Troponin I 0.144 H* (0-0.045) ng/ml C-Reactive Protein 6.02 H (0-0.29) mg/dl NT-Pro-B Natriuret Pep 10810 H (0-1800) pg/ml Total Protein 6.4 (6.4-8.2) gm/dl Albumin 2.7 L (3.4-5.0) gm/dl Globulin 3.7 (2.5-4.0) gm/dl Albumin/Globulin Ratio 0.7 L (0.9-2) Procalcitonin 1.73 H (0-0.5) ng/ml Urine Color Urine Appearance (Clear) Urine pH (4.5-7.5) Ur Specific [place] (1.000-1.030) Urine Protein (Negative) Urine Glucose (UA) (Negative) Urine Ketones (Negative) Urine Blood (Negative) Urine Nitrite (Negative) Urine Bilirubin (Negative) Urine Urobilinogen (Negative) Ur Leukocyte Esterase (Negative) Urine WBC (Auto) (0-5) /hpf Urine RBC (Auto) (0-4) /hpf U Hyaline Cast (Auto) (0-5) /lpf U Epithel Cells (Auto) (0-5) /lpf Urine Bacteria (Auto) (Negative) Urine Yeast (None Prsent) 09/26/19 Range/Units 20:10 WBC (4.8-10.8) K/uL RBC (4.2-5.4) M/uL Hgb (12.0-16.0) g/dL Hct (37-47) % MCV (80-100) fL MCH (25-34) pg MCHC (32-36) g/dL RDW Std Deviation (36.4-46.3) fL RDW Coeff of Nicolasa (11.5-14.5) % Plt Count (130-400) K/uL MPV (7.4-10.4) fL Immature Gran % (Auto) % Neut % (Auto) % Lymph % (Auto) % [place] % (Auto) % Eos % (Auto) % Baso % (Auto) % Neut # (Auto) (1.4-6.5) K/uL Lymph # (Auto) (1.2-3.4) K/uL [place] # (Auto) (0.11-0.59) K/uL Eos # (Auto) (0-0.5) K/uL Baso # (Auto) (0-0.2) K/uL Immature Gran # (Auto) (0.00-0.02) K/uL ESR (0-21) mm/hr PT (9.0-12.0) Seconds INR (0.9-1.1) APTT (21.0-31.0) Seconds PTT Ratio Sodium (136-145) mmol/L Potassium (3.5-5.1) mmol/L Chloride (98-107) mmol/L Carbon Dioxide (21-32) mmol/L Anion Gap (3-11) BUN (7-18) mg/dl Creatinine (0.6-1.2) mg/dl Est Cr Clr Drug Dosing ml/min Est GFR ( Amer) Est GFR (Non-Af Amer) BUN/Creatinine Ratio (10-20) Glucose (70-99) mg/dl Lactate (0.4-2.0) mmol/L Calcium (8.5-10.1) mg/dl Magnesium (1.8-2.4) mg/dl Total Bilirubin (0.2-1) mg/dl AST (15-37) U/L ALT (12-78) U/L Alkaline Phosphatase (45-117) U/L Troponin I (0-0.045) ng/ml C-Reactive Protein (0-0.29) mg/dl NT-Pro-B Natriuret Pep (0-1800) pg/ml Total Protein (6.4-8.2) gm/dl Albumin (3.4-5.0) gm/dl Globulin (2.5-4.0) gm/dl Albumin/Globulin Ratio (0.9-2) Procalcitonin (0-0.5) ng/ml Urine Color Yellow Urine Appearance Cloudy A (Clear) Urine pH 5.0 (4.5-7.5) Ur Specific [place] 1.023 (1.000-1.030) Urine Protein 4+ H (Negative) Urine Glucose (UA) Negative (Negative) Urine Ketones Negative (Negative) Urine Blood Negative (Negative) Urine Nitrite Negative (Negative) Urine Bilirubin Negative (Negative) Urine Urobilinogen Negative (Negative) Ur Leukocyte Esterase 2+ H (Negative) Urine WBC (Auto) >30 H (0-5) /hpf Urine RBC (Auto) 5-10 H (0-4) /hpf U Hyaline Cast (Auto) 1-5 (0-5) /lpf U Epithel Cells (Auto) 20-30 H (0-5) /lpf Urine Bacteria (Auto) 2+ H (Negative) Urine Yeast Present A (None Prsent) Administered Medications Discontinued Medications Ceftriaxone Sodium (Rocephin) 1,000 mg in 50 mls @ 100 mls/hr IV NOW STA Stop: 09/26/19 19:39 Last Infusion: 09/26/19 20:14 Dose: 0 mls/hr Documented by: [id number] Admin: 09/26/19 19:34 Dose: 100 mls/hr Documented by: [id number] Imaging Data Radiologist's Impression: XR chest 1V portable CLINICAL HISTORY: SEPSIS dyspnea COMPARISON STUDY: 08/26/2019 FINDINGS: Moderate cardiomegaly. Small bilateral pleural effusions. Prominent pu lmonary vasculature consistent with congestive failure. IMPRESSION: Congestive heart failure. Small bilateral pleural effusions. ACT 112: Negative or not required by law. The above report was generated using voice recognition software. It may contain grammatical, syntax or spelling errors. Electronically signed by: Salvatore Puentes M.D. 09/26/2019 5:21 PM Dictated: 09/26/[id number] Transcribed: 09/26/19 172 Blood Pressure Blood Pressure Findings: Elevated blood pressure Blood Pressure Disposition: further management by hospitalist Discharge Plan Visit Data Chief Complaint: Fever Stated Complaint: FEVER, LEG EDEMA, ED Provider: Nick Bruner Discharge Problem: Urinary tract infection, Pulmonary edema, Hypoxia, Fever, Chronic kidney insufficiency Patient Disposition: Being Evaluated by Hospitalist Condition: Good Forms Stand Alone Forms: [facility] [employer] Prescriptions Prescriptions: No Action carvedilol 25 mg tablet 25 mg PO BID Qty: 180 RF: 3 isosorbide mononitrate 60 mg tablet extended release 24 hr 60 mg PO QAM Qty: 90 RF: 3 atorvastatin 80 mg tablet 80 mg PO QPM Qty: 90 RF: 3 ergocalciferol (vitamin D2) 1,250 mcg (50,000 unit) capsule 50,000 unit PO MONTHLY Qty: 3 RF: 1 hydralazine 50 mg tablet 100 mg PO TID Qty: 560 RF: 3 (DME) CPAP Supplies Misc See Rx Instructions .ROUTE .MEDSUPPLY Qty: 1 RF: 0 aspirin [Aspir-81] 81 mg Tablet,Delayed Release (Dr/Ec) 81 mg PO QAM RF: 0 clopidogrel 75 mg tablet 75 mg PO QAM RF: 0 torsemide 5 mg tablet 5 mg PO QAM RF: 0 Saccharomyces boulardii [Florastor] 250 mg capsule 250 mg PO QAM RF: 0 Referrals Referrals: Bhavin Prince DO [Primary Care Provider] -
--- NOTE | 2019-09-26 17:22 | XRay Report ---
XR chest 1V portable CLINICAL HISTORY: SEPSIS dyspnea COMPARISON STUDY: 08/26/2019 FINDINGS: Moderate cardiomegaly. Small bilateral pleural effusions. Prominent pulmonary vasculature c onsistent with congestive failure. IMPRESSION: Congestive heart failure. Small bilateral pleural effusions. ACT 112: Negative or not required by law. The above report was generated using voice recognition software. It may contain grammatical, syntax or spelling errors. Electronically signed by: Salvatore Puentes M.D. 09/26/2019 5:21 PM
[2019-09-26 17:51] LABS: Basophils # (auto) 0.02 K/uL (0-0.2); Basophils % (auto) 0.1 %; Hematocrit (blood only) 34.3 % (37-47); Hemoglobin 10.2 g/dL (12.0-16.0); Immature Granulocytes # (auto) 0.06 K/uL (0.00-0.02); Immature Granulocytes % (auto) 0.4 %; Lymphocytes % (auto) 10.3 %; Mean Corpuscular Hemoglobin 29.5 pg (25-34); Mean Corpuscular Hgb Conc 29.7 g/dL (32-36); Mean Corpuscular Volume 99.1 fL (80-100); Mean Platelet Volume 11.5 fL (7.4-10.4); Monocytes # (auto) 0.82 K/uL (0.11-0.59); Monocytes % (auto) 5.6 %; Neutrophils # (auto) 12.12 K/uL (1.4-6.5); Neutrophils % (auto) 83.6 %; Platelet Count 145 K/uL (130-400); RDW Coefficient of Variation 16.9 % (11.5-14.5); RDW Standard Deviation 60.9 fL (36.4-46.3); Red Blood Count 3.46 M/uL (4.2-5.4); White Blood Count 14.52 K/uL (4.8-10.8)
[2019-09-26 18:04] LABS: INR 1.2 (0.9-1.1); Partial Thromboplastin Ratio 0.9; Partial Thromboplastin Time 25.8 Seconds (21.0-31.0); Prothrombin Time 12.2 Seconds (9.0-12.0)
[2019-09-26 18:13] LABS: Albumin Globulin Ratio 0.7 (0.9-2); Albumin Level 2.7 gm/dl (3.4-5.0); BUN Creatinine Ratio 19.6 (10-20); Bilirubin,Total 0.6 mg/dl (0.2-1); C Reactive Protein 6.02 mg/dl (0-0.29); Calcium 8.6 mg/dl (8.5-10.1); Creatinine Clr Calc Pharmacy 13.9 ml/min; Est GFR (Non-African American) 11.3; Globulin 3.7 gm/dl (2.5-4.0); Magnesium 2.1 mg/dl (1.8-2.4); Potassium 5.4 mmol/L (3.5-5.1); Total Protein 6.4 gm/dl (6.4-8.2)
[2019-09-26 18:18] LABS: Troponin I 0.144 ng/ml (0-0.045)
[2019-09-26] MEDS ORDERED: cefTRIAXone SODIUM 1,000 MG/50 ML BAG IV STA (19:10)
[2019-09-26 20:23] LABS: Appearance Urine Cloudy (Clear); Bacteria Urine Automated 2+ (Negative); Bilirubin Urine Negative (Negative); Blood Urine Negative (Negative); Color Urine Yellow; Epithelial Cell Urine Auto 20-30 /lpf (0-5); Glucose Urine UA Negative (Negative); Ketones Urine Negative (Negative); Leukocyte Esterase Urine 2+ (Negative); Nitrite Urine Negative (Negative); Protein Urine 4+ (Negative); Specific Gravity Urine 1.023 (1.000-1.030); Urobilinogen Urine Negative (Negative); WBC Urine Automated >30 /hpf (0-5)
[2019-09-26] MEDS ORDERED: FUROSEMIDE 40 MG/4 ML VIAL IV STA (21:33)
--- NOTE | 2019-09-26 21:44 | History & Physical Report ---
Date of Service September 26, 2019 Assessment & Plan (1) Pneumonia: Judi Watson is a 84y/o F w/ PMH significant for CAD, LBBB, HTN, CKD Stage IV, chronic diastolic CHF, GURPREET on CPAP and nocturnal O2, chronic lower extremity edema/venous stasis, gout, anemia, complex renal cysts, OA, and vitamin D deficiency. Pneumonia: - CXR demonstrated b/l pleural effusion - previous concerns for aspiration events on previous admissions; recently in [facility], increasing potential for hospital acquired pneumonia - Pro-hussain 1.73, WBC 14.52, CRP 6.02 - start Linezolid and Zosyn - continue to monitor Pro-hussain - Speech Language Pathology consulted for evaluation of potential aspiration events - Blood culture x2 pending CHF: - CXR demonstrated concern for congestive heart failure - BNP 20932 - gave 80mg IV Lasix - continue to track I/O - Troponin 0.144, this is down from recent hospitalizations UTI: - Urinalysis 2+ leuk esterase, >30 WBC, 2+ bacteria - Urine culture pending CAD: - continue home Atorvastatin, Plavix, and Hydralazine Diet: NPO until seen by [facility] DVT ppx: SQ Heparin Code: DNR/DNI (2) Urinary tract infection: (3) Pulmonary edema: (4) Chronic diastolic CHF (congestive heart failure): (5) CAD (coronary artery disease), elim [place] coronary artery: History of Present Illness Primary Care Provider: Bhavin Prince DO Judi Watson is a 84y/o F w/ PMH significant for CAD, LBBB, HTN, CKD Stage IV, chronic diastolic CHF, GURPREET on CPAP and nocturnal O2, chronic lower extremity edema/venous stasis, gout, anemia, complex renal cysts, OA, and vitamin D deficiency. Who presented to the Emergency Department following, continued nausea and gargling while being seen by home health agency at home, as well as a seeping wound over her right leg. At that time her temperature was 101.5F, and with recent hospitalization and recent discharge from [facility], they were concerned that she either had a wound infection or a pneumonia. On presentation to the ED, she remained febrile with chills, but denied cough, nausea, vomiting, shortness of breath, chest pain/discomfort, abdominal pain, changes in bowel or bladder function, increased upper or lower extremity edema. She was recently tested for COVID-19 multiple times over the last week while she was at [facility] and these test all came back negative. Allergies Allergy/AdvReac Type Severity Reaction Status Date / Time sulfamethoxazole Allergy Intermediate felt like Verified 09/26/19 16:59 walking on eggs trimethoprim Allergy Intermediate felt like Verified 09/26/19 16:59 walking on eggs Bactrim Allergy Unknown felt like Verified 11/04/17 07:47 walking on eggs lisinopril Allergy Unknown UNSURE OF Verified 09/26/19 16:59 REACTION streptomycin Allergy Unknown UNSURE Verified 09/26/19 16:59 REACTION Home Medications Home Medications Medication Instructions Recorded Confirmed Type aspirin [Aspir-81] 81 mg PO QAM 12/24/17 09/26/19 History miscellaneous medical supply #1 ea 04/12/19 08/18/19 Rx carvedilol 25 mg tablet 25 mg PO BID #180 tab 04/24/19 09/26/19 Rx isosorbide mononitrate 60 mg 60 mg PO QAM #90 tab 05/12/19 09/26/19 Rx tablet,extended release 24 hr atorvastatin 80 mg tablet 80 mg PO QPM #90 tab 07/07/19 09/26/19 Rx ergocalciferol (vitamin D2) 1,250 50,000 unit PO MONTHLY #3 cap 07/07/19 Rx mcg (50,000 unit) capsule hydralazine 50 mg tablet 100 mg PO TID #560 tab 07/07/19 09/26/19 Rx clopidogrel 75 mg PO QAM 08/01/19 09/26/19 History Saccharomyces boulardii [Florastor] 250 mg PO QAM 09/26/19 09/26/19 History torsemide 5 mg PO QAM 09/26/19 09/26/19 History Past Med/Surg History Medical History Anemia CHRONIC; baseline ~ 11 Chronic diastolic CHF (congestive heart failure) Chronic respiratory failure with hypoxia Gout History of nephrolithiasis (Inactive) History of ventricular tachycardia LBBB (left bundle branch block) CHRONIC [place] atrial fibrillation Myocardial Infarction IPMI S/P RCA STENTS X 2 (2011) Osteoarthritis Sleep apnea CPAP + O2 2L HS Umbilical hernia Venous stasis dermatitis of both lower extremities Vitamin D deficiency (Chronic) Surgical History H/O cardiac catheterization 2006 @ [facility] and 03/21/2012 @ [facility] RCA STENTS X 2. H/O heart artery stent RCA STENTS X 2 03/21/2012 History of appendectomy History of cataract surgery BILATERAL History of cystoscopy CYSTO/STENT EXCHANGE 02/20/19 = MAC SEDATION AT [facility]. No complications per records. History of tonsillectomy Hx of prior ablation treatment RFA S/P RVOT VTACH (NO RECURRENCE SINCE 2014 ABLATION PER CARDIO) Family History Unknown Hypertension Other No family history of adverse response to anesthesia Social History Preferred Language: [place] Communication Ability: Effective Visual Impairment: No Limitations Hearing Ability: Normal Special Technical Operations Officer Required: No Beliefs That Will Affect Care: None marital status: / Current Living Situation: Family Current Living Situation Comment: Lives with special needs daughter Other Information That Helps Us Care for You: No Feels Safe at Home: Yes Safety Concerns: Feels Safe At This Time Smoking Status: Never smoker Second Hand Exposure: No ; Hx Alcohol Use: No Hx Substance Use: No Childhood Exposure to Second-Hand Smoke: No Dental Care, Regularly: No Physical Activity Frequency: Does not Exercise Seatbelt Use: always Sunscreen Use: Yes Review of Systems Review of Systems: All systems reviewed & are unremarkable except as noted in HPI & below Physical Exam Constitutional: WD/WN, vitals as above Eyes: PERRL, conjunctivae normal, anicteric sclerae Neck: normal visual inspection Respiratory: normal respiratory effort, lungs clear to auscultation Cardiovascular: Rate/Rhythm: regular rate and regular rhythm Heart Sounds: + murmur (systolic ejection best heard over TEVIN border); no gallop and no cardiac rub Vessels: + JVD Extremities: + pedal edema Gastrointestinal (Abdomen): normal bowel sounds, soft, nontender, no hepatosplenomegaly Musculoskeletal: Extremities: + chronic stasis changes (b/l LE) Skin: + ulcer (anterior R puri with clear serous drainage) Psychiatric: A+Ox3, euthymic affect Results & Data Results & Data ([facility]) Vital Signs (Past 12 Hours) Vital Signs Temp Pulse Pulse Resp BP BP Pulse Ox 09/26/19 20:16 68 18 156/52 H 98 09/26/19 19:30 64 18 153/50 H 97 09/26/19 18:46 70 19 170/57 H 97 09/26/19 18:30 66 16 165/61 H 97 09/26/19 18:15 70 17 181/57 H 97 09/26/19 18:14 68 17 173/65 H 97 09/26/19 18:00 68 17 97 09/26/19 17:32 74 18 181/64 H 98 09/26/19 17:30 74 19 182/66 H 97 09/26/19 17:27 97 09/26/19 17:15 78 21 97 09/26/19 17:01 77 21 187/60 H 93 09/26/19 17:00 78 21 88 L 09/26/19 16:56 80 25 H 93 09/26/19 16:52 79 24 210/54 H 09/26/19 16:33 38.4 C H 78 22 210/84 H 88 L Laboratory Results 09/26/19 09/26/19 09/26/19 Range/Units 20:10 19:12 17:43 WBC (4.8-10.8) K/uL RBC (4.2-5.4) M/uL Hgb (12.0-16.0) g/dL Hct (37-47) % MCV (80-100) fL MCH (25-34) pg MCHC (32-36) g/dL RDW Std Deviation (36.4-46.3) fL RDW Coeff of Nicolasa (11.5-14.5) % Plt Count (130-400) K/uL MPV (7.4-10.4) fL Immature Gran % (Auto) % Neut % (Auto) % Lymph % (Auto) % [place] % (Auto) % Eos % (Auto) % Baso % (Auto) % Neut # (Auto) (1.4-6.5) K/uL Lymph # (Auto) (1.2-3.4) K/uL [place] # (Auto) (0.11-0.59) K/uL Eos # (Auto) (0-0.5) K/uL Baso # (Auto) (0-0.2) K/uL Immature Gran # (Auto) (0.00-0.02) K/uL ESR (0-21) mm/hr PT (9.0-12.0) Seconds INR (0.9-1.1) APTT (21.0-31.0) Seconds PTT Ratio Sodium (136-145) mmol/L Potassium (3.5-5.1) mmol/L Chloride (98-107) mmol/L Carbon Dioxide (21-32) mmol/L Anion Gap (3-11) BUN (7-18) mg/dl Creatinine (0.6-1.2) mg/dl Est Cr Clr Drug Dosing ml/min Est GFR ( Amer) Est GFR (Non-Af Amer) BUN/Creatinine Ratio (10-20) Glucose (70-99) mg/dl Lactate 1.4 (0.4-2.0) mmol/L Calcium (8.5-10.1) mg/dl Magnesium (1.8-2.4) mg/dl Total Bilirubin (0.2-1) mg/dl AST (15-37) U/L ALT (12-78) U/L Alkaline Phosphatase (45-117) U/L Troponin I (0-0.045) ng/ml C-Reactive Protein (0-0.29) mg/dl NT-Pro-B Natriuret Pep (0-1800) pg/ml Total Protein (6.4-8.2) gm/dl Albumin (3.4-5.0) gm/dl Globulin (2.5-4.0) gm/dl Albumin/Globulin Ratio (0.9-2) Procalcitonin 1.73 H (0-0.5) ng/ml Urine Color Yellow Urine Appearance Cloudy A (Clear) Urine pH 5.0 (4.5-7.5) Ur Specific [place] 1.023 (1.000-1.030) Urine Protein 4+ H (Negative) Urine Glucose (UA) Negative (Negative) Urine Ketones Negative (Negative) Urine Blood Negative (Negative) Urine Nitrite Negative (Negative) Urine Bilirubin Negative (Negative) Urine Urobilinogen Negative (Negative) Ur Leukocyte Esterase 2+ H (Negative) Urine WBC (Auto) >30 H (0-5) /hpf Urine RBC (Auto) 5-10 H (0-4) /hpf U Hyaline Cast (Auto) 1-5 (0-5) /lpf U Epithel Cells (Auto) 20-30 H (0-5) /lpf Urine Bacteria (Auto) 2+ H (Negative) Urine Yeast Present A (None Prsent) 09/26/19 09/26/19 09/26/19 Range/Units 17:43 17:43 17:43 WBC (4.8-10.8) K/uL RBC (4.2-5.4) M/uL Hgb (12.0-16.0) g/dL Hct (37-47) % MCV (80-100) fL MCH (25-34) pg MCHC (32-36) g/dL RDW Std Deviation (36.4-46.3) fL RDW Coeff of Nicolasa (11.5-14.5) % Plt Count (130-400) K/uL MPV (7.4-10.4) fL Immature Gran % (Auto) % Neut % (Auto) % Lymph % (Auto) % [place] % (Auto) % Eos % (Auto) % Baso % (Auto) % Neut # (Auto) (1.4-6.5) K/uL Lymph # (Auto) (1.2-3.4) K/uL [place] # (Auto) (0.11-0.59) K/uL Eos # (Auto) (0-0.5) K/uL Baso # (Auto) (0-0.2) K/uL Immature Gran # (Auto) (0.00-0.02) K/uL ESR 10 (0-21) mm/hr PT 12.2 H (9.0-12.0) Seconds INR 1.2 H (0.9-1.1) APTT 25.8 (21.0-31.0) Seconds PTT Ratio 0.9 Sodium 146 H (136-145) mmol/L Potassium 5.4 H (3.5-5.1) mmol/L Chloride 119 H (98-107) mmol/L Carbon Dioxide 23 (21-32) mmol/L Anion Gap 4.0 (3-11) BUN 69 H (7-18) mg/dl Creatinine 3.53 H (0.6-1.2) mg/dl Est Cr Clr Drug Dosing 13.9 ml/min Est GFR ( Amer) 13.0 Est GFR (Non-Af Amer) 11.3 BUN/Creatinine Ratio 19.6 (10-20) Glucose 177 H (70-99) mg/dl Lactate (0.4-2.0) mmol/L Calcium 8.6 (8.5-10.1) mg/dl Magnesium 2.1 (1.8-2.4) mg/dl Total Bilirubin 0.6 (0.2-1) mg/dl AST 14 L (15-37) U/L ALT 13 (12-78) U/L Alkaline Phosphatase 105 (45-117) U/L Troponin I 0.144 H* (0-0.045) ng/ml C-Reactive Protein 6.02 H (0-0.29) mg/dl NT-Pro-B Natriuret Pep 34473 H (0-1800) pg/ml Total Protein 6.4 (6.4-8.2) gm/dl Albumin 2.7 L (3.4-5.0) gm/dl Globulin 3.7 (2.5-4.0) gm/dl Albumin/Globulin Ratio 0.7 L (0.9-2) Procalcitonin (0-0.5) ng/ml Urine Color Urine Appearance (Clear) Urine pH (4.5-7.5) Ur Specific [place] (1.000-1.030) Urine Protein (Negative) Urine Glucose (UA) (Negative) Urine Ketones (Negative) Urine Blood (Negative) Urine Nitrite (Negative) Urine Bilirubin (Negative) Urine Urobilinogen (Negative) Ur Leukocyte Esterase (Negative) Urine WBC (Auto) (0-5) /hpf Urine RBC (Auto) (0-4) /hpf U Hyaline Cast (Auto) (0-5) /lpf U Epithel Cells (Auto) (0-5) /lpf Urine Bacteria (Auto) (Negative) Urine Yeast (None Prsent) 09/26/19 Range/Units 17:43 WBC 14.52 H (4.8-10.8) K/uL RBC 3.46 L (4.2-5.4) M/uL Hgb 10.2 L (12.0-16.0) g/dL Hct 34.3 L (37-47) % MCV 99.1 (80-100) fL MCH 29.5 (25-34) pg MCHC 29.7 L (32-36) g/dL RDW Std Deviation 60.9 H (36.4-46.3) fL RDW Coeff of Nicolasa 16.9 H (11.5-14.5) % Plt Count 145 (130-400) K/uL MPV 11.5 H (7.4-10.4) fL Immature Gran % (Auto) 0.4 % Neut % (Auto) 83.6 % Lymph % (Auto) 10.3 % [place] % (Auto) 5.6 % Eos % (Auto) 0.0 % Baso % (Auto) 0.1 % Neut # (Auto) 12.12 H (1.4-6.5) K/uL Lymph # (Auto) 1.50 (1.2-3.4) K/uL [place] # (Auto) 0.82 H (0.11-0.59) K/uL Eos # (Auto) 0.00 (0-0.5) K/uL Baso # (Auto) 0.02 (0-0.2) K/uL Immature Gran # (Auto) 0.06 H (0.00-0.02) K/uL ESR (0-21) mm/hr PT (9.0-12.0) Seconds INR (0.9-1.1) APTT (21.0-31.0) Seconds PTT Ratio Sodium (136-145) mmol/L Potassium (3.5-5.1) mmol/L Chloride (98-107) mmol/L Carbon Dioxide (21-32) mmol/L Anion Gap (3-11) BUN (7-18) mg/dl Creatinine (0.6-1.2) mg/dl Est Cr Clr Drug Dosing ml/min Est GFR ( Amer) Est GFR (Non-Af Amer) BUN/Creatinine Ratio (10-20) Glucose (70-99) mg/dl Lactate (0.4-2.0) mmol/L Calcium (8.5-10.1) mg/dl Magnesium (1.8-2.4) mg/dl Total Bilirubin (0.2-1) mg/dl AST (15-37) U/L ALT (12-78) U/L Alkaline Phosphatase (45-117) U/L Troponin I (0-0.045) ng/ml C-Reactive Protein (0-0.29) mg/dl NT-Pro-B Natriuret Pep (0-1800) pg/ml Total Protein (6.4-8.2) gm/dl Albumin (3.4-5.0) gm/dl Globulin (2.5-4.0) gm/dl Albumin/Globulin Ratio (0.9-2) Procalcitonin (0-0.5) ng/ml Urine Color Urine Appearance (Clear) Urine pH (4.5-7.5) Ur Specific [place] (1.000-1.030) Urine Protein (Negative) Urine Glucose (UA) (Negative) Urine Ketones (Negative) Urine Blood (Negative) Urine Nitrite (Negative) Urine Bilirubin (Negative) Urine Urobilinogen (Negative) Ur Leukocyte Esterase (Negative) Urine WBC (Auto) (0-5) /hpf Urine RBC (Auto) (0-4) /hpf U Hyaline Cast (Auto) (0-5) /lpf U Epithel Cells (Auto) (0-5) /lpf Urine Bacteria (Auto) (Negative) Urine Yeast (None Prsent) Supervising Physician Co-Signing Physician Notes Attending addendum: I have physically seen this patient, have supervised the medical residents activities, and agree with the H&P unless as otherwise noted. Assessment and Plan: Pneumonia/parapneumonic effusion/history of aspiration- Placed on linezolid 600 mg IV every 12 hours, and Zosyn 4.5 g IV every 12 hours. Speech therapy consult Follow sputum and blood cultures. CHF/CAD/hypertension/history of HI and elevated troponin- The patient will be admitted to telemetry for serial cardiac enzymes, serial EKG's, cardiac rhythm monitoring and a 2-D echocardiogram with Dopplers. Given Lasix 80 mg IV x1 in ED. Follow response. Troponin 0 0.144 upon admission is lower than previous discharge. Continue clopidogrel and hydralazine. UTI- Follow urine culture sensitivities. Will be covered with linezolid and Zosyn as noted above Remainder of orders and notations as noted. Resident Activity Tracking Resident Involvement: Resident Care Provided Care Provided: Adult Hospital Medicine (1) Urinary tract infection Hematuria presence: without hematuria Urinary tract infection type: site unspecified Qualified Code(s): N39.0 - Urinary tract infection, site not specified (2) Pulmonary edema Chronicity: acute Qualified Code(s): J81.0 - Acute pulmonary edema
[2019-09-26] MEDS ORDERED: LINEZOLID CONSULT ACTIVE PRN (23:21)
[2019-09-26] MEDS ORDERED: PIPERACILL/TAZOBAC CONSULT ACTIVE PRN (23:21)
[2019-09-26] MEDS ORDERED: LINEZOLID 600 MG/300 ML D5W IV SCH (23:21)
[2019-09-26] MEDS ORDERED: ALUMINUM/MAGNESIUM SUSP 30 ML UDC PO PRN (23:21)
[2019-09-26] MEDS ORDERED: ONDANSETRON INJ 2 MG/ML 2 ML VIAL IV PRN (23:21)
[2019-09-26] MEDS ORDERED: MAGNESIUM HYDROXIDE SUSP 30 ML UDC PO PRN (23:21)
[2019-09-26] MEDS: HEPARIN SOD 5,000 UNIT/0.5 ML VIAL SQ SCH (23:46)
[2019-09-26] MEDS: LINEZOLID 600 MG/300 ML BAG IV SCH (23:51)
[2019-09-27] MEDS ORDERED: PIPERACILLIN/TAZOBACTAM 4.5 GM in DEXTROSE 5% 100 ML IV ONE
[2019-09-27] MEDS: HEPARIN SOD 5,000 UNIT/0.5 ML VIAL SQ SCH ×3 (05:49→21:05)
[2019-09-27 06:21] LABS: Basophils # (auto) 0.03 K/uL (0-0.2); Basophils % (auto) 0.3 %; Eosinophils # (auto) 0.01 K/uL (0-0.5); Eosinophils % (auto) 0.1 %; Hematocrit (blood only) 29.1 % (37-47); Hemoglobin 8.9 g/dL (12.0-16.0); Immature Granulocytes # (auto) 0.03 K/uL (0.00-0.02); Immature Granulocytes % (auto) 0.3 %; Lymphocytes # (auto) 2.02 K/uL (1.2-3.4); Lymphocytes % (auto) 21.5 %; Mean Corpuscular Hemoglobin 30.4 pg (25-34); Mean Corpuscular Hgb Conc 30.6 g/dL (32-36); Mean Corpuscular Volume 99.3 fL (80-100); Mean Platelet Volume 11.4 fL (7.4-10.4); Monocytes # (auto) 0.47 K/uL (0.11-0.59); Neutrophils # (auto) 6.84 K/uL (1.4-6.5); Neutrophils % (auto) 72.8 %; Platelet Count 123 K/uL (130-400); RDW Coefficient of Variation 17.3 % (11.5-14.5); RDW Standard Deviation 62.7 fL (36.4-46.3); Red Blood Count 2.93 M/uL (4.2-5.4)
[2019-09-27 06:41] LABS: BUN Creatinine Ratio 20.2 (10-20); Calcium 8.5 mg/dl (8.5-10.1); Creatinine Clr Calc Pharmacy 13.8 ml/min; Est GFR (African American) 12.9; Est GFR (Non-African American) 11.1; Potassium 4.9 mmol/L (3.5-5.1)
[2019-09-27 06:42] LABS: Phosphorus 2.7 mg/dl (2.5-4.9)
[2019-09-27] MEDS: PIPERACILLIN/TAZOBACTAM 4.5 GM in DEXTROSE 5% 100 ML IV SCH ×2 (09:03→20:54)
[2019-09-27] MEDS: ASPIRIN 81 MG ECTAB PO SCH (09:03)
[2019-09-27] MEDS: carvediloL 25 MG TAB PO SCH ×3 (09:04→21:03)
[2019-09-27] MEDS: CLOPIDOGREL BISULFATE 75 MG TAB PO SCH (09:04)
[2019-09-27] MEDS: HydrALAZINE TAB 50 MG TAB PO SCH ×3 (09:04→21:03)
[2019-09-27] MEDS: LINEZOLID 600 MG/300 ML BAG IV SCH (12:18)
--- NOTE | 2019-09-27 12:28 | Hospitalist Progress Note ---
Date of Service September 27, 2019 Assessment & Plan (1) Pneumonia: - CXR demonstrated b/l pleural effusion - previous concerns for aspiration events on previous admissions; recently in [facility], increasing potential for hospital acquired pneumonia - Pro-hussain increased to 2.7 this morning though wbcs normalized - Continue Zosyn, dc Linezolid as MRSA swab negative - Speech Language Pathology consulted for evaluation of potential aspiration events - Blood culture x2 pending (2) Urinary tract infection: No complaints of dysuria Urine culture growing gram negative bacteria, current abx should cover (3) Pulmonary edema: As below (4) Chronic diastolic CHF (congestive heart failure): - CXR demonstrated concern for congestive heart failure, patient up 13kgs from last admission - BNP 34263 - gave 80mg IV Lasix on admission, will give another dose this evening and then resume torsemide - continue to track I/O - Troponin 0.144, this is down from recent hospitalizations, no chest pain (5) CAD (coronary artery disease), [place] coronary artery: - continue home Atorvastatin, Plavix, and Hydralazine (6) Leg wound, right: Seeping, wound culture growing gram negative bacteria Will consult wound care Will dc linezolid as wound is growing gram negative bacteria, continue Zosyn (7) Chronic kidney disease, stage IV (severe): Creatinine 3.56, per nephrology notes patient's creatinine usually around 2.5 although it appears her creatinine has not been this low in some time Was above 4 during admission last month Will consult nephrology Avoid nephrotoxins where possible (8) Anemia of chronic disease: Hgb 8.9 which appears to be around baseline - looks to run 9 -11 for hemoglobin Repeat CBC am (9) Sleep apnea: CPAP with 2L NC at night (10) DVT prophylaxis: heparin subq Admission and Anticipated Discharge Date Admission Date: September 26, 2019 Subjective Ms. Watson feels tired but otherwise has no complaints. ROS Constitutional: no chills, aches, sweats or fever Respiratory: no sob,cough, sputum, or wheezing Cardiac: no chest pain, palpitations, edema, orthopnea or lightheadedness GI: no abdominal pain, nausea, vomiting, diarrhea or constipation : no dysuria or hesitancy Extremities: no joint pain or weakness Skin: no rash All other systems reviewed and negative Physical Exam Physical Exam: General: no distress Eyes: normal inspection, PERLL Respiratory: chest non tender, expiratory wheezes bilaterally, no respiratory distress, no accessory muscle use Cardiac: regular rate and rhythm, no rub or gallop, systolic murmur, +2 pitting edema lower extremities GI/: active bowel sounds, no abd pain or tenderness, soft, non distended Extremities: normal range of motion, normal strength, non tender Neuro/Psych: alert and oriented x 3, normal mood and affect Skin: normal color, dry, left puri small skin tear with small amount of surrounding erythema Results & Data Results & Data ([facility]) Vital Signs (Past 12 Hours) Vital Signs Temp Pulse Resp BP Pulse Ox 09/27/19 09:05 57 L 153/60 H 09/27/19 07:43 37.5 C 59 L 18 135/73 97 PG Care Time/CCT Total # of Minutes Spent Total Time Spent with Patient: Total time spent is greater than 50% in coordination of care (as documented) at patient's floor/unit and/or counseling patient: Coding Level of Care Code 62257 Subseq Hosp Care Lvl 3 Diagnoses Pneumonia J18.9 Urinary tract infection N39.0 Hematuria presence: without hematuria Urinary tract infection type: site unspecified Pulmonary edema J81.0 Chronicity: acute Chronic diastolic CHF (congestive heart failure) I50.32 CAD (coronary artery disease), [place] coronary artery I25.10 Leg wound, right S81.801A Chronic kidney disease, stage IV (severe) N18.4 Anemia of chronic disease D63.8 Sleep apnea G47.30 DVT prophylaxis Z29.9 (1) Urinary tract infection Hematuria presence: without hematuria Urinary tract infection type: site unspecified Qualified Code(s): N39.0 - Urinary tract infection, site not specified (2) Pulmonary edema Chronicity: acute Qualified Code(s): J81.0 - Acute pulmonary edema
[2019-09-27] MEDS ORDERED: FUROSEMIDE 80 MG in SYRINGE 0 ML IV ONE (16:45)
--- NOTE | 2019-09-27 17:49 | Nephrology Consultation ---
Date of Consultation September 27, 2019 Assessment & Plan (1) Chronic kidney insufficiency: * Baseline Cr 3.5 due to microvascular disease and impaired perfusion associated w/ pulmonary HTN/R heart failure (01/06 echocardiogram: LVEF 65 - 70% w/ mild MR and RVSP 62 mm Hg). * Kidney function is stable. Electrolyte balance is acceptable. No acute indication for HD at this time * CXR shows mild pulmonary edema. Discussed w/ primary service. 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 She is agreeable to AVF creation once her condition stabilizes (2) Urinary tract infection: * G- bacilli on cath specimen. Culture pending * Agree w/ IV Zosyn therapy. Recommend consultation w/ pharmacy to adjust dosing for CKD (3) Anemia of chronic disease: * Mild, asymptomatic anemia * Will provide Epogen to help correct anemia (4) CAD (coronary artery disease), [place] coronary artery: * NSTEMI 09/08 * Currently no angina History of Present Illness Reason for Consultation: CKD Attending Physician: Carlos Alejandro MD History of Present Illness Ms. Watson is an 84 year old white female who is seen at the request of Dr. Alejandro for evaluation of CKD. Medical records in the EMR were reviewed today and are summarized as follows: Ms. Watson has stage V CKD (baseline Cr 3.5 w/ EGFR 10 cc/min). Her renal impairment is due to microvascular disease and impaired perfusion associated w/ pulmonary HTN/R heart failure (01/06 echocardiogram: LVEF 65 - 70% w/ mild MR and RVSP 62 mm Hg). 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 Ms. Watson was last hospitalized 08/25 - 09/03 due to NSTEMI and CHF. She was managed medically and her condition improved w/ IV diuretic therapy. Serum Cr was 4.1 at the time of discharge. Ms. Watson received PT at [facility]. She returned home 3 days ago. Today Ms. Watson was brought to the ED for evaluation of febrile illness, MERCHANT/orthopnea. Straight cath urine sample reveals G- bacilli. CXR shows mild pulmonary congestion. SaO2 is 97% on 2L NC. Patient has cellulitis involving her RLE. Cr is at baseline (3.5). Electrolytes are within acceptable limits. Empiric Zosyn therapy has been ordered by the primary service. Allergies Allergy/AdvReac Type Severity Reaction Status Date / Time sulfamethoxazole Allergy Intermediate felt like Verified 09/26/19 16:59 walking on eggs trimethoprim Allergy Intermediate felt like Verified 09/26/19 16:59 walking on eggs Bactrim Allergy Unknown felt like Verified 11/04/17 07:47 walking on eggs lisinopril Allergy Unknown UNSURE OF Verified 09/26/19 16:59 REACTION streptomycin Allergy Unknown UNSURE Verified 09/26/19 16:59 REACTION Home Medications Home Medications Medication Instructions Recorded Confirmed Type aspirin [Aspir-81] 81 mg PO QAM 12/24/17 09/26/19 History miscellaneous medical supply #1 ea 04/12/19 08/18/19 Rx carvedilol 25 mg tablet 25 mg PO BID #180 tab 04/24/19 09/26/19 Rx isosorbide mononitrate 60 mg 60 mg PO QAM #90 tab 05/12/19 09/26/19 Rx tablet,extended release 24 hr atorvastatin 80 mg tablet 80 mg PO QPM #90 tab 07/07/19 09/26/19 Rx ergocalciferol (vitamin D2) 1,250 50,000 unit PO MONTHLY #3 cap 07/07/19 09/26/19 Rx mcg (50,000 unit) capsule hydralazine 50 mg tablet 100 mg PO TID #560 tab 07/07/19 09/26/19 Rx clopidogrel 75 mg PO QAM 08/01/19 09/26/19 History Saccharomyces boulardii [Florastor] 250 mg PO QAM 09/26/19 09/26/19 History torsemide 5 mg PO QAM 09/26/19 09/26/19 History Patient History Medical History Anemia CHRONIC; baseline ~ 11 Chronic diastolic CHF (congestive heart failure) Chronic respiratory failure with hypoxia Gout History of nephrolithiasis (Inactive) History of ventricular tachycardia LBBB (left bundle branch block) CHRONIC Lone atrial fibrillation Myocardial Infarction IPMI S/P RCA STENTS X 2 (2011) Osteoarthritis Sleep apnea CPAP + O2 2L HS Umbilical hernia Venous stasis dermatitis of both lower extremities Vitamin D deficiency (Chronic) Surgical History H/O cardiac catheterization 2006 @ [facility] and 03/21/2012 @ [facility] RCA STENTS X 2. H/O heart artery stent RCA STENTS X 2 03/21/2012 History of appendectomy History of cataract surgery BILATERAL History of cystoscopy CYSTO/STENT EXCHANGE 02/20/19 = MAC SEDATION AT [facility]. No complications per records. History of tonsillectomy Hx of prior ablation treatment RFA S/P RVOT VTACH (NO RECURRENCE SINCE 2014 ABLATION PER CARDIO) Family History Unknown Hypertension Other No family history of adverse response to anesthesia Social History Preferred Language: Pakistani Communication Ability: Effective Visual Impairment: No Limitations Hearing Ability: Normal Terminal Carman Required: No Beliefs That Will Affect Care: None marital status: / Current Living Situation: Family Current Living Situation Comment: Lives with special needs daughter Other Information That Helps Us Care for You: No Feels Safe at Home: Yes Safety Concerns: Feels Safe At This Time Smoking Status: Never smoker Second Hand Exposure: No ; Hx Alcohol Use: No Hx Substance Use: No Childhood Exposure to Second-Hand Smoke: No Dental Care, Regularly: No Physical Activity Frequency: Does not Exercise Seatbelt Use: always Sunscreen Use: Yes Review of Systems Constitutional: + fever and + weakness Eyes: no problem reported Ear, Nose, Mouth, Throat: no problem reported Respiratory: + dyspnea on exertion; no cough Cardiovascular: no chest pain and no palpitations Additional Comments: chronic LE swelling Gastrointestinal: no abdominal pain, no nausea, no vomiting and no diarrhea/loose stools Genitourinary: no dysuria and no hematuria Musculoskeletal: no back pain Integumentary: no rash Neurologic: no falls and no confusion Physical Exam Constitutional: + frail appearing; not in distress Eyes: PERRL, conjunctivae normal, anicteric sclerae ENMT: external ear and nose normal, oropharynx normal Neck: trachea midline, no thyromegaly Respiratory: normal respiratory effort, lungs clear to auscultation Cardiovascular: Rate/Rhythm: regular rate and regular rhythm Heart Sounds: no cardiac rub Extremities: + edema (2+ LE edema. RLE currently wrapped) Gastrointestinal (Abdomen): normal bowel sounds, soft, nontender, no hepatosplenomegaly Musculoskeletal: Extremities: no cyanosis Neurologic: awake; not confused Results & Data Vital Signs (Past 12 Hours) Vital Signs Temp Pulse Resp BP Pulse Ox 09/27/19 15:31 36.9 C 58 L 16 134/62 97 09/27/19 09:05 57 L 153/60 H 09/27/19 07:43 37.5 C 59 L 18 135/73 97 Laboratory Results Laboratory Results WBC 9.40 K/uL (4.8-10.8) 09/27/19 05:34 RBC 2.93 M/uL (4.2-5.4) L 09/27/19 05:34 Hgb 8.9 g/dL (12.0-16.0) L 09/27/19 05:34 Hct 29.1 % (37-47) L 09/27/19 05:34 MCV 99.3 fL (80-100) 09/27/19 05:34 MCH 30.4 pg (25-34) 09/27/19 05:34 MCHC 30.6 g/dL (32-36) L 09/27/19 05:34 RDW Std Deviation 62.7 fL (36.4-46.3) H 09/27/19 05:34 RDW Coeff of Nicolasa 17.3 % (11.5-14.5) H 09/27/19 05:34 Plt Count 123 K/uL (130-400) L 09/27/19 05:34 MPV 11.4 fL (7.4-10.4) H 09/27/19 05:34 Immature Gran % (Auto) 0.3 % 09/27/19 05:34 Neut % (Auto) 72.8 % 09/27/19 05:34 Lymph % (Auto) 21.5 % 09/27/19 05:34 [place] % (Auto) 5.0 % 09/27/19 05:34 Eos % (Auto) 0.1 % 09/27/19 05:34 Baso % (Auto) 0.3 % 09/27/19 05:34 Neut # (Auto) 6.84 K/uL (1.4-6.5) H 09/27/19 05:34 Lymph # (Auto) 2.02 K/uL (1.2-3.4) 09/27/19 05:34 [place] # (Auto) 0.47 K/uL (0.11-0.59) 09/27/19 05:34 Eos # (Auto) 0.01 K/uL (0-0.5) 09/27/19 05:34 Baso # (Auto) 0.03 K/uL (0-0.2) 09/27/19 05:34 Immature Gran # (Auto) 0.03 K/uL (0.00-0.02) H 09/27/19 05:34 ESR 10 mm/hr (0-21) 09/26/19 17:43 PT 12.2 Seconds (9.0-12.0) H 09/26/19 17:43 INR 1.2 (0.9-1.1) H 09/26/19 17:43 APTT 25.8 Seconds (21.0-31.0) 09/26/19 17:43 PTT Ratio 0.9 09/26/19 17:43 Sodium 143 mmol/L (136-145) 09/27/19 05:34 Potassium 4.9 mmol/L (3.5-5.1) 09/27/19 05:34 Chloride 114 mmol/L (98-107) H 09/27/19 05:34 Carbon Dioxide 23 mmol/L (21-32) 09/27/19 05:34 Anion Gap 6.0 (3-11) 09/27/19 05:34 BUN 72 mg/dl (7-18) H 09/27/19 05:34 Creatinine 3.56 mg/dl (0.6-1.2) H 09/27/19 05:34 Est Cr Clr Drug Dosing 13.8 ml/min 09/27/19 05:34 Est GFR ( Amer) 12.9 09/27/19 05:34 Est GFR (Non-Af Amer) 11.1 09/27/19 05:34 BUN/Creatinine Ratio 20.2 (10-20) H 09/27/19 05:34 Glucose 121 mg/dl (70-99) H 09/27/19 05:34 Lactate 1.4 mmol/L (0.4-2.0) 09/26/19 19:12 Calcium 8.5 mg/dl (8.5-10.1) 09/27/19 05:34 Phosphorus 2.7 mg/dl (2.5-4.9) 09/27/19 05:34 Magnesium 2.0 mg/dl (1.8-2.4) 09/27/19 05:34 Total Bilirubin 0.6 mg/dl (0.2-1) 09/26/19 17:43 AST 14 U/L (15-37) L 09/26/19 17:43 ALT 13 U/L (12-78) 09/26/19 17:43 Alkaline Phosphatase 105 U/L (45-117) 09/26/19 17:43 Troponin I 0.144 ng/ml (0-0.045) H* 09/26/19 17:43 C-Reactive Protein 6.02 mg/dl (0-0.29) H 09/26/19 17:43 NT-Pro-B Natriuret Pep 55501 pg/ml (0-1800) H 09/26/19 17:43 Total Protein 6.4 gm/dl (6.4-8.2) 09/26/19 17:43 Albumin 2.7 gm/dl (3.4-5.0) L 09/26/19 17:43 Globulin 3.7 gm/dl (2.5-4.0) 09/26/19 17:43 Albumin/Globulin Ratio 0.7 (0.9-2) L 09/26/19 17:43 Procalcitonin 2.68 ng/ml (0-0.5) H 09/27/19 05:34 Urine Color Yellow 09/26/19 20:10 Urine Appearance Cloudy (Clear) A 09/26/19 20:10 Urine pH 5.0 (4.5-7.5) 09/26/19 20:10 Ur Specific [place] 1.023 (1.000-1.030) 09/26/19 20:10 Urine Protein 4+ (Negative) H 09/26/19 20:10 Urine Glucose (UA) Negative (Negative) 09/26/19 20:10 Urine Ketones Negative (Negative) 09/26/19 20:10 Urine Blood Negative (Negative) 09/26/19 20:10 Urine Nitrite Negative (Negative) 09/26/19 20:10 Urine Bilirubin Negative (Negative) 09/26/19 20:10 Urine Urobilinogen Negative (Negative) 09/26/19 20:10 Ur Leukocyte Esterase 2+ (Negative) H 09/26/19 20:10 Urine WBC (Auto) >30 /hpf (0-5) H 09/26/19 20:10 Urine RBC (Auto) 5-10 /hpf (0-4) H 09/26/19 20:10 U Hyaline Cast (Auto) 1-5 /lpf (0-5) 09/26/19 20:10 U Epithel Cells (Auto) 20-30 /lpf (0-5) H 09/26/19 20:10 Urine Bacteria (Auto) 2+ (Negative) H 09/26/19 20:10 Urine Yeast Present (None Prsent) A 09/26/19 20:10 Nasal Screen MRSA (PCR) Negative (Negative) 09/26/19 23:00 PG Care Time/CCT Total # of Minutes Spent Total Time Spent with Patient: Total time spent is greater than 50% in coord ination of care (as documented) at patient's floor/unit and/or counseling patient: Coding Level of Care Code 73310 Inpt Consult Level 5 Diagnoses Chronic kidney insufficiency N18.9 Chronic kidney disease stage: unspecified stage Urinary tract infection N39.0 Hematuria presence: without hematuria Urinary tract infection type: site unspecified Anemia of chronic disease D63.8 CAD (coronary artery disease), [place] coronary artery I25.10 (1) Chronic kidney insufficiency Chronic kidney disease stage: unspecified stage Qualified Code(s): N18.9 - Chronic kidney disease, unspecified (2) Urinary tract infection Hematuria presence: without hematuria Urinary tract infection type: site unspecified Qualified Code(s): N39.0 - Urinary tract infection, site not speci fied
[2019-09-27] MEDS ORDERED: EPOETIN ALFA 10,000 UNITS/ML VIAL SQ ONE (18:30)
[2019-09-27] MEDS: ATORVASTATIN 40 MG TAB PO SCH (21:03)
--- NOTE | 2019-09-27 22:34 | Electrocardiogram Report ---
Test Reason : Blood Pressure : / mmHG Vent. Rate : 074 BPM Atrial Rate : 074 BPM P-R Int : 158 ms QRS Dur : 138 ms QT Int : 424 ms P-R-T Axes : 043 -36 087 degrees QTc Int : 470 ms Normal sinus rhythm Possible Left atrial enlargement Left axis deviation Left bundle branch block Abnormal ECG When compared with ECG of 27-AUG-2019 06:50, Nonspecific T wave abnormality no longer evident in Inferior leads QT has shortened Confirmed by Simon Delong ([id number]) on 09/27/2019 10:34:00 PM Referred By: REFERRED SELF Confirmed By:Simon Delong
[2019-09-28] MEDS: HEPARIN SOD 5,000 UNIT/0.5 ML VIAL SQ SCH ×3 (05:39→21:06)
[2019-09-28 07:09] LABS: Albumin Level 2.3 gm/dl (3.4-5.0); BUN Creatinine Ratio 18.8 (10-20); Calcium 8.2 mg/dl (8.5-10.1); Creatinine Clr Calc Pharmacy 12.7 ml/min; Est GFR (African American) 11.9; Est GFR (Non-African American) 10.3; Potassium 4.6 mmol/L (3.5-5.1)
[2019-09-28 07:12] LABS: Albumin Globulin Ratio 0.7 (0.9-2); Bilirubin,Total 0.6 mg/dl (0.2-1); Globulin 3.1 gm/dl (2.5-4.0); Total Protein 5.4 gm/dl (6.4-8.2)
[2019-09-28 07:26] LABS: Basophils # (auto) 0.03 K/uL (0-0.2); Basophils % (auto) 0.4 %; Eosinophils # (auto) 0.29 K/uL (0-0.5); Eosinophils % (auto) 3.4 %; Hematocrit (blood only) 30.4 % (37-47); Hemoglobin 9.1 g/dL (12.0-16.0); Immature Granulocytes # (auto) 0.05 K/uL (0.00-0.02); Immature Granulocytes % (auto) 0.6 %; Lymphocytes # (auto) 1.84 K/uL (1.2-3.4); Lymphocytes % (auto) 21.9 %; Mean Corpuscular Hemoglobin 29.9 pg (25-34); Mean Corpuscular Hgb Conc 29.9 g/dL (32-36); Monocytes # (auto) 0.59 K/uL (0.11-0.59); Neutrophils # (auto) 5.61 K/uL (1.4-6.5); Neutrophils % (auto) 66.7 %; Platelet Count 131 K/uL (130-400); Red Blood Count 3.04 M/uL (4.2-5.4); White Blood Count 8.41 K/uL (4.8-10.8)
[2019-09-28] MEDS: PIPERACILLIN/TAZOBACTAM 4.5 GM in DEXTROSE 5% 100 ML IV SCH ×2 (08:15→20:19)
[2019-09-28] MEDS: CLOPIDOGREL BISULFATE 75 MG TAB PO SCH (08:52)
[2019-09-28] MEDS: ASPIRIN 81 MG ECTAB PO SCH (08:52)
[2019-09-28] MEDS: TORSEMIDE 10 MG TAB PO SCH (08:52)
[2019-09-28] MEDS: HydrALAZINE TAB 50 MG TAB PO SCH ×3 (08:53→20:25)
[2019-09-28] MEDS: carvediloL 25 MG TAB PO SCH ×2 (08:53→20:25)
--- NOTE | 2019-09-28 09:37 | Nephrology Progress Note ---
Date of Service September 28, 2019 Assessment & Plan (1) Chronic kidney insufficiency: * Baseline Cr 3.5 due to microvascular disease and impaired perfusion associated w/ pulmonary HTN/R heart failure (01/06 echocardiogram: LVEF 65 - 70% w/ mild MR and RVSP 62 mm Hg). * Kidney function is stable. Electrolyte balance is acceptable. 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 She is agreeable to AVF creation once her condition stabilizes (2) Urinary tract infection: * Cath urine culture + for E. Coli * Currently on IV Zosyn therapy. Pharmacy has been consulted to adjust dosing for CKD (3) Anemia of chronic disease: * Mild, asymptomatic anemia * Epogen provided 09/28/19 to help correct anemia (4) Leg wound, right: * Wound cx + for pseudomonas * Continue IV Zosyn therapy (5) Pneumonia: * No lobar consolidation on CXR * Consider weaning O2 keeping SaO2 > 93% (6) CAD (coronary artery disease), [place] coronary artery: * NSTEMI 09/08 * Currently no angina Admission and Anticipated Discharge Date Admission Date: September 26, 2019 Subjective Ms. Watson was seen & examined in her hospital room this morning. She had a low grade fever overnight. She denies dyspnea or productive cough. She is breathing comfortably on O2 at 2 L/min NC. Ms. Watson had net 360 cc diuresis in response to IV diuretic yesterday evening. She hopes to get up to a chair today and begin PT for strengthening. Review of Systems Constitutional: + fever and + weakness Eyes: no problem reported Ear, Nose, Mouth, Throat: no problem reported Respiratory: no cough Cardiovascular: no chest pain, no palpitations and no edema Additional Comments: chronic LE swelling Gastrointestinal: no abdominal pain, no nausea, no vomiting and no diarrhea/loose stools Genitourinary: no dysuria and no hematuria Musculoskeletal: no back pain Integumentary: no rash Neurologic: no falls, no dizziness and no confusion Physical Exam Constitutional: + frail appearing; not in distress Eyes: PERRL, conjunctivae normal, anicteric sclerae ENMT: external ear and nose normal, oropharynx normal Neck: trachea midline, no thyromegaly Respiratory: normal respiratory effort, lungs clear to auscultation Cardiovascular: Rate/Rhythm: regular rate and regular rhythm Heart Sounds: no cardiac rub Extremities: + edema (2+ LE edema. RLE currently wrapped) Gastrointestinal (Abdomen): normal bowel sounds, soft, nontender, no hepatosplenomegaly Musculoskeletal: Extremities: no cyanosis Neurologic: awake; not confused Results & Data ([facility]) Vital Signs (Past 12 Hours) Vital Signs Temp Pulse Pulse Resp BP Pulse Ox 09/28/19 08:56 62 160/57 H 97 09/28/19 07:09 36.8 C 68 20 160/64 H 90 09/27/19 23:07 36.7 C 61 16 126/62 94 Laboratory Results Microbiology 09/26/19 18:08 Leg,Right Gram Stain - Final 09/26/19 20:10 Urine,Straight Cath Urine Culture - Preliminary Escherichia coli 09/26/19 18:08 Leg,Right Wound Culture - Preliminary Pseudomonas aeruginosa Laboratory Tests 09/28/19 09/28/19 06:12 06:12 WBC 8.41 Hgb 9.1 L Hct 30.4 L Plt Count 131 Sodium 143 Potassium 4.6 Chloride 113 H Carbon Dioxide 25 BUN 72 H Creatinine 3.80 H Glucose 102 H PG Care Time/CCT Total # of Minutes Spent Total Time Spent with Patient: Total time spent is greater than 50% in coordination of care (as documented) at patient's floor/unit and/or counseling patient: Coding Level of Care Code 60009 Subseq Hosp Care Lvl 3 Diagnoses Chronic kidney insufficiency N18.9 Chronic kidney disease stage: unspecified stage Urinary tract infection N39.0 Hematuria presence: without hematuria Urinary tract infection type: site unspecified Anemia of chronic disease D63.8 Leg wound, right S81.801A Pneumonia J18.9 CAD (coronary artery disease), [place] coronary artery I25.10 (1) Chronic kidney insufficiency Chronic kidney disease stage: unspecified stage Qualified Code(s): N18.9 - Chronic kidney disease, unspecified (2) Urinary tract infection Hematuria presence: without hematuria Urinary tract infection type: site unspecified Qualified Code(s): N39.0 - Urinary tract infection, site not specified
--- NOTE | 2019-09-28 13:58 | Hospitalist Progress Note ---
Date of Service September 28, 2019 Assessment & Plan (1) Pneumonia: - CXR demonstrated b/l pleural effusion - previous concerns for aspiration events on previous admissions; recently in [facility], increasing potential for hospital acquired pneumonia - Pro-hussain increasing but leukocytosis resolved - procal may be more of a reflection of heart failure status than infection - Continue Zosyn, dc Linezolid as MRSA swab negative - Speech Language Pathology consulted - Blood culture x2 ngtd (2) Urinary tract infection: No complaints of dysuria Urine culture growing E.Coli - continue Zosyn (3) Pulmonary edema: As below (4) Chronic diastolic CHF (congestive heart failure): - CXR demonstrated concern for congestive heart failure on admission, patient up 13kgs from last admission - BNP 23087 - Lasix given x 2 days and now back to home torsemide per nephrology rec - continue to track I/O - negative a liter for this admission - Troponin 0.144, this is down from recent hospitalizations, no chest pain (5) CAD (coronary artery disease), [place] coronary artery: - continue home Atorvastatin, Plavix, and Hydralazine (6) Leg wound, right: Seeping, wound culture growing psuedomonas Consulted wound care - RLE - apply optifoam, change QOD and prn and follow up with wound clinic Continue Zosyn (7) Chronic kidney disease, stage IV (severe): Creatinine 3.8, baseline creat 3.5 Was above 4 during admission last month Consulted nephrology, appreciate recommendations Avoid nephrotoxins where possible (8) Anemia of chronic disease: Hgb stable Repeat CBC am (9) Sleep apnea: CPAP with 2L NC at night (10) DVT prophylaxis: heparin subq Admission and Anticipated Discharge Date Admission Date: September 26, 2019 Subjective Ms. Watson reports feeling more tired today than yesterday but otherwise has no complaints. ROS Constitutional: no chills, aches, sweats or fever Respiratory: no sob,cough, sputum, or wheezing Cardiac: no chest pain, palpitations, edema, orthopnea or lightheadedness GI: no abdominal pain, nausea, vomiting, diarrhea or constipation : no dysuria or hesitancy Extremities: no joint pain or weakness Skin: no rash All other systems reviewed and negative Physical Exam Physical Exam: General: no distress Eyes: normal inspection, PERLL Respiratory: chest non tender, clear to auscultation, normal breath sounds, no respiratory distress, no accessory muscle use Cardiac: regular rate and rhythm, no rub or gallop, no murmur, no edema, no jvd GI/: active bowel sounds, no abd pain or tenderness, soft, non distended Extremities: normal range of motion, normal strength, non tender Neuro/Psych: alert and oriented x 3, normal mood and affect Skin: normal color, dry Results & Data Results & Data ([facility]) Vital Signs (Past 12 Hours) Vital Signs Temp Pulse Pulse Resp BP Pulse Ox 09/28/19 08:56 62 160/57 H 97 09/28/19 07:09 36.8 C 68 20 160/64 H 90 PG Care Time/CCT Total # of Minutes Spent Total Time Spent with Patient: Total time spent is greater than 50% in coordination of care (as documented) at patient's floor/unit and/or counseling patient: Coding Level of Care Code 02785 Subseq Hosp Care Lvl 3 Diagnoses Pneumonia J18.9 Urinary tract infection N39.0 Hematuria presence: without hematuria Urinary tract infection type: site unspecified Pulmonary edema J81.0 Chronicity: acute Chronic diastolic CHF (congestive heart failure) I50.32 CAD (coronary artery disease), [place] coronary artery I25.10 Leg wound, right S81.801A Chronic kidney disease, stage IV (severe) N18.4 Anemia of chronic disease D63.8 Sleep apnea G47.30 DVT prophylaxis Z29.9 (1) Urinary tract infection Hematuria presence: without hematuria Urinary tract infection type: site unspecified Qualified Code(s): N39.0 - Urinary tract infection, site not specified (2) Pulmonary edema Chronicity: acute Qualified Code(s): J81.0 - Acute pulmonary edema
[2019-09-28] MEDS: ATORVASTATIN 40 MG TAB PO SCH (20:24)
[2019-09-29] MEDS: HEPARIN SOD 5,000 UNIT/0.5 ML VIAL SQ SCH ×3 (05:48→20:57)
[2019-09-29 06:26] LABS: Basophils # (auto) 0.04 K/uL (0-0.2); Basophils % (auto) 0.6 %; Eosinophils # (auto) 0.43 K/uL (0-0.5); Eosinophils % (auto) 5.9 %; Hemoglobin 9.4 g/dL (12.0-16.0); Immature Granulocytes # (auto) 0.11 K/uL (0.00-0.02); Immature Granulocytes % (auto) 1.5 %; Lymphocytes # (auto) 2.17 K/uL (1.2-3.4); Lymphocytes % (auto) 29.8 %; Mean Corpuscular Hemoglobin 29.7 pg (25-34); Mean Corpuscular Hgb Conc 30.3 g/dL (32-36); Mean Corpuscular Volume 97.8 fL (80-100); Mean Platelet Volume 11.4 fL (7.4-10.4); Monocytes # (auto) 0.52 K/uL (0.11-0.59); Monocytes % (auto) 7.2 %; Platelet Count 137 K/uL (130-400); RDW Coefficient of Variation 16.7 % (11.5-14.5); Red Blood Count 3.17 M/uL (4.2-5.4); White Blood Count 7.27 K/uL (4.8-10.8)
[2019-09-29 06:52] LABS: BUN Creatinine Ratio 17.8 (10-20); Calcium 8.1 mg/dl (8.5-10.1); Creatinine Clr Calc Pharmacy 12.7 ml/min; Est GFR (African American) 11.9; Est GFR (Non-African American) 10.3; Potassium 4.5 mmol/L (3.5-5.1)
[2019-09-29] MEDS: HydrALAZINE TAB 50 MG TAB PO SCH ×3 (07:37→20:56)
[2019-09-29] MEDS: carvediloL 25 MG TAB PO SCH ×2 (07:37→20:56)
[2019-09-29] MEDS: PIPERACILLIN/TAZOBACTAM 4.5 GM in DEXTROSE 5% 100 ML IV SCH (08:05)
[2019-09-29] MEDS: ASPIRIN 81 MG ECTAB PO SCH (08:22)
[2019-09-29] MEDS: TORSEMIDE 10 MG TAB PO SCH (08:22)
[2019-09-29] MEDS: CLOPIDOGREL BISULFATE 75 MG TAB PO SCH (09:22)
--- NOTE | 2019-09-29 09:42 | Nephrology Progress Note ---
Date of Service September 29, 2019 Assessment & Plan (1) Chronic kidney insufficiency: * Baseline Cr 3.5 due to microvascular disease and impaired perfusion associated w/ pulmonary HTN/R heart failure (01/06 echocardiogram: LVEF 65 - 70% w/ mild MR and RVSP 62 mm Hg). * Kidney function is stable. Electrolyte balance is acceptable. 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 She is agreeable to AVF creation once her condition stabilizes (2) Urinary tract infection: * Cath urine culture + for E. Coli * Currently on IV Zosyn therapy. Pharmacy has been consulted to adjust dosing for CKD (3) Anemia of chronic disease: * Mild, asymptomatic anemia * Epogen provided 09/28/19 to help correct anemia (4) Leg wound, right: * Wound cx + for pseudomonas * Continue IV Zosyn therapy (5) Pneumonia: * No lobar consolidation on CXR * Now oxygenating well on RA (6) CAD (coronary artery disease), [place] coronary artery: * NSTEMI 09/08 * Currently no angina (7) Diarrhea: * Recommend starting probiotic and adding yogurt to diet * Consider testing stool for C. Difficile toxin Admission and Anticipated Discharge Date Admission Date: September 26, 2019 Subjective Ms. Watson was seen & examined in her hospital room this morning. She was afebrile overnight. She denies dyspnea or productive cough. She is now oxygenating well on RA. Ms. Watson has had net 1200 cc vol negative since admission. She remains on low dose Torsemide therapy. Ms. Watson's primary concern today is new onset diarrhea. Review of Systems Constitutional: + weakness; no fever Eyes: no problem reported Ear, Nose, Mouth, Throat: no problem reported Respiratory: no cough and no dyspnea Cardiovascular: no chest pain, no palpitations and no edema Additional Comments: chronic LE swelling Gastrointestinal: + diarrhea/loose stools; no abdominal pain, no nausea and no vomiting Genitourinary: no dysuria and no hematuria Musculoskeletal: no back pain Integumentary: no rash Neurologic: no falls, no dizziness and no confusion Physical Exam Constitutional: + frail appearing; not in distress Eyes: PERRL, conjunctivae normal, anicteric sclerae ENMT: external ear and nose normal, oropharynx normal Neck: trachea midline, no thyromegaly Respiratory: normal respiratory effort, lungs clear to auscultation Cardiovascular: Rate/Rhythm: regular rate and regular rhythm Heart Sounds: no cardiac rub Extremities: + edema (2+ LE edema. RLE currently wrapped) Gastrointestinal (Abdomen): normal bowel sounds, soft, nontender, no hepatosplenomegaly Musculoskeletal: Extremities: no cyanosis Neurologic: awake; not confused Results & Data ([facility]) Vital Signs (Past 12 Hours) Vital Signs Temp Pulse Resp BP Pulse Ox 09/29/19 08:09 160/55 H 09/29/19 07:30 37 C 69 16 188/74 H 93 09/28/19 23:59 36.5 C 63 15 154/66 H 94 Laboratory Results Microbiology 09/26/19 20:10 Urine,Straight Cath Urine Culture - Final Escherichia coli Lactobacillus species 09/26/19 18:08 Leg,Right Gram Stain - Final 09/26/19 18:08 Leg,Right Wound Culture - Final Pseudomonas aeruginosa Laboratory Tests 09/28/19 09/29/19 09/29/19 06:12 05:36 05:56 WBC 7.27 Hgb 9.4 L Hct 31.0 L Plt Count 137 Sodium 145 Potassium 4.5 Chloride 115 H Carbon Dioxide 25 BUN 67 H Creatinine 3.80 H Calcium 8.1 L Albumin 2.3 L PG Care Time/CCT Total # of Minutes Spent Total Time Spent with Patient: Total time spent is greater than 50% in coordination of care (as documented) at patient's floor/unit and/or counseling patient: Coding Level of Care Code 06533 Subseq Hosp Care Lvl 3 Diagnoses Chronic kidney insufficiency N18.9 Chronic kidney disease stage: unspecified stage Urinary tract infection N39.0 Hematuria presence: without hematuria Urinary tract infection type: site unspecified Anemia of chronic disease D63.8 Leg wound, right S81.801A Pneumonia J18.9 CAD (coronary artery disease), [place] coronary artery I25.10 Diarrhea R19.7 (1) Chronic kidney insufficiency Chronic kidney disease stage: unspecified stage Qualified Code(s): N18.9 - Chronic kidney disease, unspecified (2) Urinary tract infection Hematuria presence: without hematuria Urinary tract infection type: site unspecified Qualified Code(s): N39.0 - Urinary tract infection, site not specified
--- NOTE | 2019-09-29 13:06 | Hospitalist Progress Note ---
Date of Service September 29, 2019 Assessment & Plan (1) Pneumonia: - CXR demonstrated b/l pleural effusion - previous concerns for aspiration events on previous admissions; recently in [facility], increasing potential for hospital acquired pneumonia - Pro-hussain increasing but leukocytosis resolved - procal may be more of a reflection of heart failure status than infection - Zosyn will be transitioned to po Levaquin - Speech Language Pathology consulted - Blood culture x2 ngtd (2) Urinary tract infection: No complaints of dysuria Urine culture growing E.Coli - transitioned Zosyn to po levaquin (3) Pulmonary edema: As below (4) Chronic diastolic CHF (congestive heart failure): - CXR demonstrated concern for congestive heart failure on admission, pat ient up 13kgs from last admission - BNP 82342 - Lasix given x 2 days and now back to home torsemide per nephrology rec - continue to track I/O - negative a liter for this admission - Troponin 0.144 on admission, this is down from recent hospitalizations, no chest pain (5) CAD (coronary artery disease), [place] coronary artery: - continue home Atorvastatin, Plavix, and Hydralazine (6) Leg wound, right: Seeping, wound culture growing psuedomonas Consulted wound care - RLE - apply optifoam, change QOD and prn and follow up with wound clinic Zosyn transitioned to levaquin (7) Chronic kidney disease, stage IV (severe): Creatinine 3.8 over the last two days, baseline creat 3.5 Was above 4 during admission last month Consulted nephrology, appreciate recommendations Avoid nephrotoxins where possible (8) Anemia of chronic disease: Hgb stable Repeat CBC am (9) Sleep apnea: CPAP with 2L NC at night (10) Diarrhea: Having about one bowel movement per day but loose, will start probiotics, if bowel movements increase will check for C diff (11) DVT prophylaxis: heparin subq Admission and Anticipated Discharge Date Admission Date: September 26, 2019 Supervising Physician Co-Signing Physician Notes chart reviewed and case d/w S Tabatha LOWE. as above Subjective Ms. Watson is feeling better today. She denies any sob or other discomfort, she is less tired today. ROS Constitutional: no chills, aches, sweats or fever Respiratory: no sob,cough, sputum, or wheezing Cardiac: no chest pain, palpitations, edema, orthopnea or lightheadedness GI: no abdominal pain, nausea, vomiting, diarrhea or constipation : no dysuria or hesitancy Extremities: no joint pain or weakness Skin: no rash All other systems reviewed and negative Review of Systems Review of Systems: All systems reviewed & are unremarkable except as noted in HPI & below Physical Exam Physical Exam: General: no distress Eyes: normal inspection, PERLL Respiratory: chest non tender, clear to auscultation, normal breath sounds, no respiratory distress, no accessory muscle use Cardiac: regular rate and rhythm, no rub or gallop, no murmur, no edema, no jvd GI/: active bowel sounds, no abd pain or tenderness, soft, non distended Extremities: normal range of motion, normal strength, non tender Neuro/Psych: alert and oriented x 3, normal mood and affect Skin: normal color, dry, right puri wound without increase in erythema, continues to have serous drainage Results & Data Results & Data ([facility]) Vital Signs (Past 12 Hours) Vital Signs Temp Pulse Resp BP Pulse Ox 09/29/19 08:09 160/55 H 09/29/19 07:30 37 C 69 16 188/74 H 93 PG Care Time/CCT Total # of Minutes Spent Total Time Spent with Patient: Total time spent is greater than 50% in coordination of care (as documented) at patient's floor/unit and/or counseling patient: Coding Level of Care Code 20455 Subseq Hosp Care Lvl 2 Diagnoses Pneumonia J18.9 Urinary tract infection N39.0 Hematuria presence: without hematuria Urinary tract infection type: site unspecified Pulmonary edema J81.0 Chronicity: acute Chronic diastolic CHF (congestive heart failure) I50.32 CAD (coronary artery disease), [place] coronary artery I25.10 Leg wound, right S81.801A Chronic kidney disease, stage IV (severe) N18.4 Anemia of chronic disease D63.8 Sleep apnea G47.30 Diarrhea R19.7 DVT prophylaxis Z29.9 (1) Urinary tract infection Hematuria presence: without hematuria Urinary tract infection type: site unspecified Qualified Code(s): N39.0 - Urinary tract infection, site not specified (2) Pulmonary edema Chronicity: acute Qualified Code(s): J81.0 - Acute pulmonary edema
[2019-09-29] MEDS: levoFLOXacin 500 MG TAB PO SCH (15:48)
[2019-09-29] MEDS ORDERED: ISOSORBIDE MONO EXTENDED REL 30 MG TABCR PO STA (19:18)
[2019-09-29] MEDS: ATORVASTATIN 40 MG TAB PO SCH (20:57)
[2019-09-30] MEDS: HEPARIN SOD 5,000 UNIT/0.5 ML VIAL SQ SCH ×3 (05:44→21:44)
[2019-09-30] MEDS: HydrALAZINE TAB 50 MG TAB PO SCH ×3 (06:44→21:42)
[2019-09-30] MEDS: carvediloL 25 MG TAB PO SCH ×2 (06:44→21:43)
[2019-09-30 06:58] LABS: BUN Creatinine Ratio 17.6 (10-20); Calcium 8.1 mg/dl (8.5-10.1); Creatinine Clr Calc Pharmacy 13.1 ml/min; Est GFR (African American) 12.5; Est GFR (Non-African American) 10.8; Potassium 4.1 mmol/L (3.5-5.1)
[2019-09-30] MEDS: SACCHAROMYCES BOULARDII 250 MG CAP PO SCH (09:17)
[2019-09-30] MEDS: ASPIRIN 81 MG ECTAB PO SCH (09:17)
[2019-09-30] MEDS: TORSEMIDE 10 MG TAB PO SCH (09:17)
[2019-09-30] MEDS: ISOSORBIDE MONO EXTENDED REL 30 MG TABCR PO SCH (09:17)
[2019-09-30] MEDS: CLOPIDOGREL BISULFATE 75 MG TAB PO SCH (09:17)
--- NOTE | 2019-09-30 09:38 | Nephrology Progress Note ---
Date of Service September 30, 2019 Assessment & Plan (1) Chronic kidney insufficiency: * Baseline Cr 3.5 due to microvascular disease and impaired perfusion associated w/ pulmonary HTN/R heart failure (01/06 echocardiogram: LVEF 65 - 70% w/ mild MR and RVSP 62 mm Hg). * Kidney function is stable. Electrolyte balance is acceptable. 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 She is agreeable to AVF creation once her condition stabilizes (2) Urinary tract infection: * Cath urine culture + for E. Coli * Currently on oral Levaquin therapy. Pharmacy has been consulted to adjust dosing for CKD (3) Anemia of chronic disease: * Mild, asymptomatic anemia * Epogen provided 09/28/19 to help correct anemia (4) Leg wound, right: * Wound cx + for pseudomonas * Continue oral Levaquin therapy (5) Pneumonia: * No lobar consolidation on CXR * Oxygenating well on RA (6) CAD (coronary artery disease), [place] coronary artery: * NSTEMI 09/08 * Currently no angina (7) Diarrhea: * Continue probiotic and yogurt in diet Admission and Anticipated Discharge Date Admission Date: September 26, 2019 Subjective Ms. Watson was seen & examined in her hospital room this morning. She was afebrile overnight. She denies dyspnea or productive cough. She continues to oxygenate well on RA. I&O's were matched overnight. Ms. Watson remains on low dose Torsemide therapy. She reports that her diarrhea has improved w/ probiotic and yogurt. Review of Systems Constitutional: + weakness; no fever Eyes: no problem reported Ear, Nose, Mouth, Throat: no problem reported Respiratory: no cough and no dyspnea Cardiovascular: no chest pain, no palpitations and no edema Additional Comments: chronic LE swelling Gastrointestinal: + diarrhea/loose stools; no abdominal pain, no nausea and no vomiting Genitourinary: no dysuria and no hematuria Musculoskeletal: no back pain Integumentary: no rash Neurologic: no falls, no dizziness and no confusion Physical Exam Constitutional: + frail appearing; not in distress Eyes: PERRL, conjunctivae normal, anicteric sclerae ENMT: external ear and nose normal, oropharynx normal Neck: trachea midline, no thyromegaly Respiratory: normal respiratory effort, lungs clear to auscultation Cardiovascular: Rate/Rhythm: regular rate and regular rhythm Heart Sounds: no cardiac rub Extremities: + edema (2+ LE edema. RLE currently wrapped) Gastrointestinal (Abdomen): normal bowel sounds, soft, nontender, no hepatosplenomegaly Musculoskeletal: Extremities: no cyanosis Neurologic: awake; not confused Results & Data ([facility]) Vital Signs (Past 12 Hours) Vital Signs Temp Pulse Resp BP Pulse Ox 09/30/19 08:52 152/78 H 09/30/19 05:45 37.3 C 67 15 177/62 H 92 09/29/19 23:59 36.9 C 68 14 146/65 H 93 Laboratory Results Microbiology 09/26/19 20:10 Urine,Straight Cath Urine Culture - Final Escherichia coli Lactobacillus species 09/26/19 18:08 Leg,Right Gram Stain - Final 09/26/19 18:08 Leg,Right Wound Culture - Final Pseudomonas aeruginosa Laboratory Tests 09/30/19 05:55 Sodium 142 Potassium 4.1 Chloride 113 H Carbon Dioxide 22 BUN 64 H Creatinine 3.66 H Glucose 105 H PG Care Time/CCT Total # of Minutes Spent Total Time Spent with Patient: Total time spent is greater than 50% in coordination of care (as documented) at patient's floor/unit and/or counseling patient: Coding Level of Care Code 02953 Subseq Hosp Care Lvl 3 Diagnoses Chronic kidney insufficiency N18.9 Chronic kidney disease stage: unspecified stage Urinary tract infection N39.0 Hematuria presence: without hematuria Urinary tract infection type: site unspecified Anemia of chronic disease D63.8 Leg wound, right S81.801A Pneumonia J18.9 CAD (coronary artery disease), [place] coronary artery I25.10 Diarrhea R19.7 (1) Chronic kidney insufficiency Chronic kidney disease stage: unspecified stage Qualified Code(s): N18.9 - Chronic kidney disease, unspecified (2) Urinary tract infection Hematuria presence: without hematuria Urinary tract infection type: site unspecified Qualified Code(s): N39.0 - Urinary tract infection, site not specified
--- NOTE | 2019-09-30 11:20 | Billing Data ---
Date of Service September 30, 2019 Coding Level of Care Code 04521 Initial Inpt Care Lvl 3
--- NOTE | 2019-09-30 13:40 | Hospitalist Progress Note ---
Date of Service September 30, 2019 Assessment & Plan (1) Pneumonia: - CXR demonstrated b/l pleural effusion - CXR may be more reflective of congestion from heart failure rather than a pneumonia - previous concerns for aspiration events on previous admissions; recently in [facility], increasing potential for hospital acquired pneumonia - Pro-hussain increasing but leukocytosis resolved - procal may be more of a reflection of heart failure status than infection -Continue po Levaquin to cover urine and skin - Speech Language Pathology consulted, appreciate recommendations - Blood culture x2 ngtd (2) Urinary tract infection: No complaints of dysuria Urine culture growing E.Coli - po levaquin (3) Pulmonary edema: As below (4) Chronic diastolic CHF (congestive heart failure): - CXR demonstrated concern for congestive heart failure on admission, patient up 13kgs from last admission - BNP 92317 - Lasix given x 2 days and now back to home torsemide per nephrology rec - continue to track I/O - negative a liter for this admission - Troponin 0.144 on admission, this is down from recent hospitalizations, no chest pain (5) CAD (coronary artery disease), [place] coronary artery: - continue home Atorvastatin, Plavix, and Hydralazine (6) Diarrhea: Having about one bowel movement per day but loose, continue probiotics, if bowel movements increase will check for C diff (7) Anemia of chronic disease: stable (8) Leg wound, right: Seeping, wound culture growing psuedomonas Consulted wound care - RLE - apply optifoam, change QOD and prn and follow up with wound clinic Continue levaquin (9) Chronic kidney disease, stage IV (severe): Creatinine 3.6 o baseline creat 3.5 Was above 4 during admission last month Consulted nephrology, appreciate recommendations Avoid nephrotoxins where possible (10) Sleep apnea: CPAP with 2L NC at night (11) Hypertension: Continue hydralazine and carvedilol Added Imdur at 30 mg as patient's blood pressures have been running 160s-180s systolically. She is not symptomatic but given her recent NSTEMI, will try to get better control over her blood pressures here. (12) DVT prophylaxis: heparin Admission and Anticipated Discharge Date Admission Date: September 26, 2019 Supervising Physician Co-Signing Physician Notes chart reviewed, case d/w S Tabatha LOWE. as above Subjective Ms. Watson feels a bit tired but otherwise has no complaints. ROS Constitutional: no chills, aches, sweats or fever Respiratory: no sob,cough, sputum, or wheezing Cardiac: no chest pain, palpitations, edema, orthopnea or lightheadedness GI: no abdominal pain, nausea, vomiting, diarrhea or constipation : no dysuria or hesitancy Extremities: no joint pain or weakness Skin: no rash All other systems reviewed and negative Physical Exam Physical Exam: General: no distress Eyes: normal inspection, PERLL Respiratory: chest non tender, clear to auscultation, normal breath sounds, no respiratory distress, no accessory muscle use Cardiac: regular rate and rhythm, no rub or gallop, 3/6 systolic murmur, no edema, no jvd GI/: active bowel sounds, no abd pain or tenderness, soft, non distended Extremities: normal range of motion, normal strength, non tender Neuro/Psych: alert and oriented x 3, normal mood and affect Skin: normal color, dry Results & Data Results & Data ([facility]) Vital Signs (Past 12 Hours) Vital Signs Temp Pulse Resp BP Pulse Ox 09/30/19 08:52 152/78 H 09/30/19 05:45 37.3 C 67 15 177/62 H 92 PG Care Time/CCT Total # of Minutes Spent Total Time Spent with Patient: Total time spent is greater than 50% in coordination of care (as documented) at patient's floor/unit and/or counseling patient: Coding Level of Care Code 61008 Subseq Hosp Care Lvl 3 Diagnoses Pneumonia J18.9 Urinary tract infection N39.0 Hematuria presence: without hematuria Urinary tract infection type: site unspecified Pulmonary edema J81.0 Chronicity: acute Chronic diastolic CHF (congestive heart failure) I50.32 CAD (coronary artery disease), [place] coronary artery I25.10 Diarrhea R19.7 Anemia of chronic disease D63.8 Leg wound, right S81.801A Chronic kidney disease, stage IV (severe) N18.4 Sleep apnea G47.30 Hypertension I10 DVT prophylaxis Z29.9 (1) Urinary tract infection Hematuria presence: without hematuria Urinary tract infection type: site unspecified Qualified Code(s): N39.0 - Urinary tract infection, site not specified (2) Pulmonary edema Chronicity: acute Qualified Code(s): J81.0 - Acute pulmonary edema
[2019-09-30] MEDS: ATORVASTATIN 40 MG TAB PO SCH (21:42)
[2019-10-01] MEDS: HEPARIN SOD 5,000 UNIT/0.5 ML VIAL SQ SCH ×3 (05:10→21:11)
[2019-10-01 06:08] LABS: BUN Creatinine Ratio 17.2 (10-20); Calcium 7.8 mg/dl (8.5-10.1); Creatinine Clr Calc Pharmacy 14.3 ml/min; Est GFR (African American) 13.8; Est GFR (Non-African American) 11.9; Potassium 4.1 mmol/L (3.5-5.1)
[2019-10-01 07:57] LABS: Hematocrit (blood only) 29.3 % (37-47); Mean Corpuscular Hemoglobin 30.1 pg (25-34); Mean Corpuscular Hgb Conc 30.7 g/dL (32-36); Mean Platelet Volume 11.5 fL (7.4-10.4); Platelet Count 153 K/uL (130-400); RDW Standard Deviation 56.9 fL (36.4-46.3); Red Blood Count 2.99 M/uL (4.2-5.4); White Blood Count 7.42 K/uL (4.8-10.8)
[2019-10-01] MEDS: ISOSORBIDE MONO EXTENDED REL 30 MG TABCR PO SCH (10:01)
[2019-10-01] MEDS: TORSEMIDE 10 MG TAB PO SCH (10:01)
[2019-10-01] MEDS ORDERED: EPOETIN ALFA 10,000 UNITS/ML VIAL SQ ONE (10:01)
--- NOTE | 2019-10-01 10:01 | Nephrology Progress Note ---
Date of Service October 01, 2019 Assessment & Plan (1) Chronic kidney insufficiency: * Baseline Cr 3.5 due to microvascular disease and impaired perfusion associated w/ pulmonary HTN/R heart failure (01/06 echocardiogram: LVEF 65 - 70% w/ mild MR and RVSP 62 mm Hg). * Kidney function is stable. Creatinine is down to 3.3 this morning. Electrolyte balance is acceptable. No acute indication for HD at this time * Continue Torsemide 5 mg po daily to maintain euvolemic status * No further Nephrology evaluation indicated at this time. Will sign off. Please call if further assistance is needed (2) Urinary tract infection: * Cath urine culture + for E. Coli * Currently on oral Levaquin therapy. Pharmacy has been consulted to adjust dosing for CKD (3) Anemia of chronic disease: * Mild, asymptomatic anemia * Will redose Epogen today to help correct anemia (4) Leg wound, right: * Wound cx + for pseudomonas * Continue oral Levaquin therapy (5) Pneumonia: * No lobar consolidation on CXR * Oxygenating well on RA (6) CAD (coronary artery disease), [place] coronary artery: * NSTEMI 09/08 * Currently no angina (7) Diarrhea: * Continue probiotic and yogurt in diet Admission and Anticipated Discharge Date Admission Date: September 26, 2019 Subjective Ms. Watson was seen & examined in her hospital room this morning. She has been afebrile > 48 hours. She denies dyspnea or productive cough. She continues to oxygenate well on RA. I&O's were matched overnight. Ms. Watson has had net 1700 cc diuresis while on low dose Torsemide therapy. She reports that her diarrhea has improved w/ probiotic and yogurt. Review of Systems Constitutional: + weakness; no fever Eyes: no problem reported Ear, Nose, Mouth, Throat: no problem reported Respiratory: no cough and no dyspnea Cardiovascular: + edema; no chest pain and no palpitations Additional Comments: chronic LE swelling Gastrointestinal: + diarrhea/loose stools; no abdominal pain and no vomiting Genitourinary: no dysuria and no hematuria Musculoskeletal: no back pain Integumentary: no rash Neurologic: no falls, no dizziness and no confusion Physical Exam Constitutional: + frail appearing; not in distress Eyes: PERRL, conjunctivae normal, anicteric sclerae ENMT: external ear and nose normal, oropharynx normal Neck: trachea midline, no thyromegaly Respiratory: normal respiratory effort, lungs clear to auscultation Cardiovascular: Rate/Rhythm: regular rate and regular rhythm Heart Sounds: no cardiac rub Extremities: + edema (1+ LE edema. RLE currently wrapped) Gastrointestinal (Abdomen): normal bowel sounds, soft, nontender, no hepatosplenomegaly Musculoskeletal: Extremities: no cyanosis Neurologic: awake; not confused Results & Data ([facility]) Vital Signs (Past 12 Hours) Vital Signs Temp Pulse Pulse Resp BP Pulse Ox 10/01/19 07:08 37.0 C 73 18 171/64 H 90 09/30/19 23:03 37.2 C 86 15 149/61 H 92 Laboratory Results Laboratory Tests 10/01/19 10/01/19 04:51 04:54 WBC 7.42 Hgb 9.0 L Hct 29.3 L Plt Count 153 Sodium 145 Potassium 4.1 Chloride 115 H Carbon Dioxide 24 BUN 58 H Creatinine 3.36 H D Glucose 103 H PG Care Time/CCT Total # of Minutes Spent Total Time Spent with Patient: Total time spent is greater than 50% in coordination of care (as documented) at patient's floor/unit and/or counseling patient: Coding Level of Care Code 67903 Subseq Hosp Care Lvl 3 Diagnoses Chronic kidney insufficiency N18.9 Chronic kidney disease stage: unspecified stage Urinary tract infection N39.0 Hematuria presence: without hematuria Urinary tract infection type: site unspecified Anemia of chronic disease D63.8 Leg wound, right S81.801A Pneumonia J18.9 CAD (coronary artery disease), [place] coronary artery I25.10 Diarrhea R19.7 (1) Chronic kidney insufficiency Chronic kidney disease stage: unspecified stage Qualified Code(s): N18.9 - Chronic kidney disease, unspecified (2) Urinary tract infection Hematuria presence: without hematuria Urinary tract infection type: site unspecified Qualified Code(s): N39.0 - Urinary tract infection, site not specified
[2019-10-01] MEDS: SACCHAROMYCES BOULARDII 250 MG CAP PO SCH (10:02)
[2019-10-01] MEDS: HydrALAZINE TAB 50 MG TAB PO SCH ×3 (10:02→19:57)
[2019-10-01] MEDS: ASPIRIN 81 MG ECTAB PO SCH (10:02)
[2019-10-01] MEDS: CLOPIDOGREL BISULFATE 75 MG TAB PO SCH (10:02)
[2019-10-01] MEDS: carvediloL 25 MG TAB PO SCH ×2 (10:02→19:56)
--- NOTE | 2019-10-01 14:40 | Hospitalist Progress Note ---
Date of Service October 01, 2019 Assessment & Plan (1) Pneumonia: - CXR demonstrated b/l pleural effusion - CXR may be more reflective of congestion from heart failure rather than a pneumonia - previous concerns for aspiration events on previous admissions; recently in [facility], increasing potential for hospital acquired pneumonia - Pro-hussain elevated but leukocytosis resolved - procal may be more of a reflection of heart failure status than infection -Continue po Levaquin to cover urine and skin - Speech Language Pathology consulted, appreciate recommendations - Blood culture x2 ngtd (2) Urinary tract infection: No complaints of dysuria Urine culture growing E.Coli - po levaquin (3) Pulmonary edema: As below (4) Chronic diastolic CHF (congestive heart failure): - CXR demonstrated concern for congestive heart failure on admission, patient up 13kgs from last admission - BNP 27661 - Lasix given x 2 days and now back to home torsemide per nephrology rec - continue to track I/O - negative a liter for this admission - Troponin 0.144 on admission, this is down from recent hospitalizations, no chest pain (5) CAD (coronary artery disease), rampart coronary artery: - continue home Atorvastatin, Plavix, and Hydralazine - irregular rhythm today, will check EKG (6) Diarrhea: Having about one bowel movement per day but loose, continue probiotics, if bowel movements increase will check for C diff (7) Anemia of chronic disease: stable (8) Leg wound, right: Seeping, wound culture growing psuedomonas Consulted wound care - RLE - apply optifoam, change QOD and prn and follow up with wound clinic Continue levaquin (9) Chronic kidney disease, stage IV (severe): Creatinine 3.3, baseline creat 3.5 Was above 4 during admission last month Consulted nephrology, appreciate recommendations Avoid nephrotoxins where possible (10) Sleep apnea: CPAP with 2L NC at night (11) Hypertension: Continue hydralazine and carvedilol Added Imdur at 30 mg as patient's blood pressures have been running 160s-180s systolically. She is not symptomatic but given her recent NSTEMI, will try to get better control over her blood pressures here. May need to be further titrated with her pcp (12) DVT prophylaxis: heparin Dispo: PT recommending rehab. Patient wishes to return home. Family is organizing increased caregivers and hospital bed for in the home. Will likely be able to discharge once caregivers are in place. Admission and Anticipated Discharge Date Admission Date: September 26, 2019 Supervising Physician Co-Signing Physician Notes case d/w S Tabatha LOWE. as above Subjective Ms. Watson has no complaints this morning ROS Constitutional: no chills, aches, sweats or fever Respiratory: no sob,cough, sputum, or wheezing Cardiac: no chest pain, palpitations, edema, orthopnea or lightheadedness GI: no abdominal pain, nausea, vomiting, diarrhea or constipation : no dysuria or hesitancy Extremities: no joint pain or weakness Skin: no rash All other systems reviewed and negative Physical Exam Physical Exam: General: no distress Eyes: normal inspection, PERLL Respiratory: chest non tender, clear to auscultation, normal breath sounds, no respiratory distress, no accessory muscle use Cardiac: irregular rate and rhythm, no rub or gallop, systolic murmur, +2 pitting edema lower extremities GI/: active bowel sounds, no abd pain or tenderness, soft, non distended Extremities: normal range of motion, normal strength, non tender Neuro/Psych: alert and oriented x 3, normal mood and affect Skin: normal color, dry Results & Data Results & Data ([facility]) Vital Signs (Past 12 Hours) Vital Signs Temp Pulse Pulse Resp BP Pulse Ox 10/01/19 10:01 79 172/68 H 10/01/19 07:08 37.0 C 73 18 171/64 H 90 PG Care Time/CCT Total # of Minutes Spent Total Time Spent with Patient: Total time spent is greater than 50% in coordination of care (as documented) at patient's floor/unit and/or counseling patient: Coding Level of Care Code 22615 Subseq Hosp Care Lvl 2 Diagnoses Pneumonia J18.9 Urinary tract infection N39.0 Hematuria presence: without hematuria Urinary tract infection type: site unspecified Pulmonary edema J81.0 Chronicity: acute Chronic diastolic CHF (congestive heart failure) I50.32 CAD (coronary artery disease), rampart coronary artery I25.10 Diarrhea R19.7 Anemia of chronic disease D63.8 Leg wound, right S81.801A Chronic kidney disease, stage IV (severe) N18.4 Sleep apnea G47.30 Hypertension I10 DVT prophylaxis Z29.9 (1) Urinary tract infection Hematuria presence: without hematuria Urinary tract infection type: site unspecified Qualified Code(s): N39.0 - Urinary tract infection, site not specified (2) Pulmonary edema Chronicity: acute Qualified Code(s): J81.0 - Acute pulmonary edema
[2019-10-01] MEDS: levoFLOXacin 500 MG TAB PO SCH (16:13)
[2019-10-01] MEDS: ATORVASTATIN 40 MG TAB PO SCH (19:55)
[2019-10-02 05:47] LABS: BUN Creatinine Ratio 16.4 (10-20); Calcium 7.9 mg/dl (8.5-10.1); Creatinine Clr Calc Pharmacy 14.6 ml/min; Est GFR (African American) 14.1; Est GFR (Non-African American) 12.2; Potassium 4.2 mmol/L (3.5-5.1)
[2019-10-02] MEDS: HEPARIN SOD 5,000 UNIT/0.5 ML VIAL SQ SCH ×3 (06:22→21:14)
[2019-10-02] MEDS: ACETAMINOPHEN 325 MG TAB PO PRN ×2 (06:35→16:01)
[2019-10-02] MEDS: HydrALAZINE TAB 50 MG TAB PO SCH ×3 (08:24→21:14)
[2019-10-02] MEDS: TORSEMIDE 10 MG TAB PO SCH (08:26)
[2019-10-02] MEDS: carvediloL 25 MG TAB PO SCH ×2 (08:26→21:14)
[2019-10-02] MEDS: ASPIRIN 81 MG ECTAB PO SCH (08:26)
[2019-10-02] MEDS: ISOSORBIDE MONO EXTENDED REL 30 MG TABCR PO SCH (08:27)
[2019-10-02] MEDS: SACCHAROMYCES BOULARDII 250 MG CAP PO SCH (08:28)
[2019-10-02] MEDS: CLOPIDOGREL BISULFATE 75 MG TAB PO SCH (08:28)
[2019-10-02] MEDS ORDERED: LEVOFLOXACIN/D5W 750 MG/150 ML BAG IV SCH (09:45)
--- NOTE | 2019-10-02 10:00 | XRay Report ---
XR chest 1V portable CLINICAL HISTORY: fever,assess for PNA COMPARISON STUDY: 09/26/2019 FINDINGS: Small bibasilar parenchymal infiltrates. Mid and upper lungs are clear. Pulmonary vasculatu re is prominent. IMPRESSION: Small bibasilar parenchymal infiltrates. Mild congestive failure. ACT 112: Negative or not required by law. The above report was generated using voice recognition software. It may contain grammatical, syntax or spelling errors. Electronically signed by: Salvatore Puentes M.D. 10/02/2019 9:59 AM
[2019-10-02 10:02] LABS: Basophils # (auto) 0.03 K/uL (0-0.2); Basophils % (auto) 0.3 %; Eosinophils # (auto) 0.04 K/uL (0-0.5); Eosinophils % (auto) 0.4 %; Hematocrit (blood only) 28.9 % (37-47); Hemoglobin 9.1 g/dL (12.0-16.0); Immature Granulocytes # (auto) 0.19 K/uL (0.00-0.02); Immature Granulocytes % (auto) 1.8 %; Lymphocytes # (auto) 1.48 K/uL (1.2-3.4); Lymphocytes % (auto) 14.2 %; Mean Corpuscular Hemoglobin 30.2 pg (25-34); Mean Corpuscular Hgb Conc 31.5 g/dL (32-36); Mean Platelet Volume 10.8 fL (7.4-10.4); Monocytes # (auto) 1.09 K/uL (0.11-0.59); Monocytes % (auto) 10.5 %; Neutrophils # (auto) 7.58 K/uL (1.4-6.5); Neutrophils % (auto) 72.8 %; Platelet Count 159 K/uL (130-400); RDW Coefficient of Variation 16.2 % (11.5-14.5); RDW Standard Deviation 56.7 fL (36.4-46.3); Red Blood Count 3.01 M/uL (4.2-5.4); White Blood Count 10.41 K/uL (4.8-10.8)
[2019-10-02] MEDS: CEFEPIME 2,000 MG in SYRINGE 7.5 ML IV SCH (11:06)
--- NOTE | 2019-10-02 11:10 | Hospitalist Progress Note ---
Date of Service October 02, 2019 Assessment & Plan (1) Fever: Presented with fever initially thought to be due to her pneumonia and urinary tract infection This had resolved then for 6 days and returned again on the morning of 10/01 -Repeat CBC with borderline leukocytosis today, procalcitonin is decreased from previous 0.7, chest x-ray with bibasilar infiltrates which could be atelectasis, and repeat urinalysis not consistent with infection. She has no other signs or symptoms of ongoing infection and her leg wounds look improved from previous -Suspect fever from atelectasis although will empirically redraw blood cultures and add on cefepime in case of development of resistance of the previous Pseudomonas from her leg wound to Levaquin -Continue Levaquin as previous to also cover for atypicals in the setting of pneumonia -Follow fever curve and give Tylenol as needed -Follow blood cultures -Encouraged incentive spirometer and getting out of bed which patient does not seem motivated to do (2) Pneumonia: - CXR demonstrated b/l pleural effusion and possible bibasilar infiltrates again on repeat chest x-ray 10/01 - CXR may be more reflective of CHF rather than a pneumonia, but again has fevers as above - previous concerns for aspiration events on previous admissions; recently in [facility], increasing potential for hospital acquired pneumonia -Procalcitonin was elevated but is now improved but mildly elevated at 0.7 -Continue po Levaquin to cover urine and skin as well as atypical organisms for pneumonia in addition to cefepime as above for gram-negative pneumonia - Speech Language Pathology consulted, appreciate recommendations - Blood culture x2 ngtd and blood cultures were redrawn again today (3) Urinary tract infection: No complaints of dysuria Urine culture growing E.Coli -continue po levaquin Repeat UA on 10/01 shows a lot more epithelial cells and WBCs and is likely contaminated Owen catheter remains in place-we will leave in place for now as she is having significant incontinence (4) Pulmonary edema: As below (5) Chronic diastolic CHF (congestive heart failure): With acute on chronic diastolic CHF - CXR demonstrated concern for congestive heart failure on admission, patient up 13kgs from last admission - BNP 41783 - Lasix given x 2 days and now back to home torsemide per nephrology rec - continue to track I/O, daily weights- negative a liter for this admission - Troponin 0.144 on admission, this is down from recent hospitalizations, no chest pain (6) CAD (coronary artery disease), osage coronary artery: No acute issues - continue home aspirin, carvedilol, atorvastatin, Plavix, isosorbide, and Hydralazine (7) Diarrhea: Resolved Continue probiotics (8) Anemia of chronic disease: stable with hemoglobin 9.1, normocytic Transferrin saturation was 14% in 08/2019 -Was given Epogen on 09/30 by nephrology (9) Leg wound, right: Seeping, wound culture growing Pseudomonas aeruginosa-pansensitive Now appears much improved Consulted wound care - RLE - apply optifoam, change QOD and prn and follow up with wound clinic Continue levaquin (10) Chronic kidney disease, stage IV (severe): Creatinine 3.3, baseline creat 3.5 Creatinine is stable today at 3.30 Was above 4 during admission last month Consulted nephrology, appreciate recommendations Avoid nephrotoxins where possible (11) Sleep apnea: Continue CPAP with 2L NC at night (12) Hypertension: Blood pressures are stable to mildly elevated -Continue hydralazine and carvedilol as well as torsemide Added Imdur at 30 mg as patient's blood pressures have been running 160s-180s systolically. She is not symptomatic but given her recent NSTEMI, will try to get better control over her blood pressures here. May need to be further titrated with her pcp (13) DVT prophylaxis: heparin Dispo: PT recommending rehab. Patient wishes to return home. Family is organizing increased caregivers and hospital bed for in the home. Family is also requesting palliative care consultation to help facilitate a discussion of the goals of care given her recurrent hospitalizations and declining overall status. Admission and Anticipated Discharge Date Admission Date: September 26, 2019 Subjective Patient reports she is just not feeling well today. She spiked a fever this morning and again in the afternoon. She denies headache or neck pain, no sore throat or rhinorrhea. She denies any cough or shortness of breath. Denies chest pains or heart palpitations. Denies abdominal pains or nausea. No diarrhea. Her leg wounds actually appear improved from previous and there is no surrounding cellulitis. She has not been getting out of bed much at all and reports using the incentive spirometer a couple of times. She has a Owen catheter in place but the urine appears clear. Review of Systems Review of Systems: All systems reviewed & are unremarkable except as noted in HPI & below Physical Exam Constitutional: WD/WN, vitals as above + obese Eyes: PERRL, conjunctivae normal, anicteric sclerae ENMT: external ear and nose normal, oropharynx normal Neck: trachea midline, no thyromegaly Respiratory: normal respiratory effort; no labored breathing Auscultation: + diminished lung sounds (At the bases bilaterally); no crackles, no rhonchi and no wheezes Cardiovascular: Rate/Rhythm: regular rate and regular rhythm Extremities: + edema (1+ pitting woody edema of the legs to the knees bilaterally) Gastrointestinal (Abdomen): normal bowel sounds, soft, nontender, no hepatosplenomegaly Musculoskeletal: Extremities: no cyanosis and no clubbing Skin: + wound (Right distal anterior leg wound which appears superficial with very minimal drainage and surrounding erythema, left dorsal foot wound with 3 cm scab without surrounding erythema or drainage) Neurologic: moves all extremities and awake; no focal motor deficits Psychiatric: Orientation: alert, oriented x 3 and cooperative Speech: normal rate/rhythm/volume of speech Affect: + flat affect Genitourinary: Owen catheter in place with clear yellow urine Lymphatic: no lymphedema Results & Data Results & Data ([facility]) Vital Signs (Past 12 Hours) Vital Signs Temp Pulse Resp BP Pulse Ox 10/02/19 08:05 37.8 C H 10/02/19 07:12 38.2 C H 81 18 143/51 H 92 10/01/19 23:11 36.4 C L 73 16 180/66 H 93 Laboratory Results 10/02/19 10/02/19 10/02/19 Range/Units 10:50 09:46 09:46 WBC 10.41 (4.8-10.8) K/uL RBC 3.01 L (4.2-5.4) M/uL Hgb 9.1 L (12.0-16.0) g/dL Hct 28.9 L (37-47) % MCV 96.0 (80-100) fL MCH 30.2 (25-34) pg MCHC 31.5 L (32-36) g/dL RDW Std Deviation 56.7 H (36.4-46.3) fL RDW Coeff of Nicolasa 16.2 H (11.5-14.5) % Plt Count 159 (130-400) K/uL MPV 10.8 H (7.4-10.4) fL Immature Gran % (Auto) 1.8 % Neut % (Auto) 72.8 % Lymph % (Auto) 14.2 % [place] % (Auto) 10.5 % Eos % (Auto) 0.4 % Baso % (Auto) 0.3 % Neut # (Auto) 7.58 H (1.4-6.5) K/uL Lymph # (Auto) 1.48 (1.2-3.4) K/uL [place] # (Auto) 1.09 H (0.11-0.59) K/uL Eos # (Auto) 0.04 (0-0.5) K/uL Baso # (Auto) 0.03 (0-0.2) K/uL Immature Gran # (Auto) 0.19 H (0.00-0.02) K/uL Sodium (136-145) mmol/L Potassium (3.5-5.1) mmol/L Chloride (98-107) mmol/L Carbon Dioxide (21-32) mmol/L Anion Gap (3-11) BUN (7-18) mg/dl Creatinine (0.6-1.2) mg/dl Est Cr Clr Drug Dosing ml/min Est GFR ( Amer) Est GFR (Non-Af Amer) BUN/Creatinine Ratio (10-20) Glucose (70-99) mg/dl Calcium (8.5-10.1) mg/dl Procalcitonin 0.72 H (0-0.5) ng/ml Urine Color Yellow Urine Appearance Cloudy A (Clear) Urine pH 5.0 (4.5-7.5) Ur Specific [place] 1.021 (1.000-1.030) Urine Protein 3+ H (Negative) Urine Glucose (UA) Negative (Negative) Urine Ketones Negative (Negative) Urine Blood Negative (Negative) Urine Nitrite Negative (Negative) Urine Bilirubin Negative (Negative) Urine Urobilinogen Negative (Negative) Ur Leukocyte Esterase 1+ H (Negative) Urine WBC (Auto) 5-10 H (0-5) /hpf Urine RBC (Auto) 0-4 (0-4) /hpf U Hyaline Cast (Auto) 10-30 H (0-5) /lpf U Epithel Cells (Auto) >30 H (0-5) /lpf Urine Bacteria (Auto) Negative (Negative) Other Casts Mixed Cell Cast A (0) /lpf Urine Yeast Present A (None Prsent) 10/02/19 Range/Units 04:38 WBC (4.8-10.8) K/uL RBC (4.2-5.4) M/uL Hgb (12.0-16.0) g/dL Hct (37-47) % MCV (80-100) fL MCH (25-34) pg MCHC (32-36) g/dL RDW Std Deviation (36.4-46.3) fL RDW Coeff of Nicolasa (11.5-14.5) % Plt Count (130-400) K/uL MPV (7.4-10.4) fL Immature Gran % (Auto) % Neut % (Auto) % Lymph % (Auto) % [place] % (Auto) % Eos % (Auto) % Baso % (Auto) % Neut # (Auto) (1.4-6.5) K/uL Lymph # (Auto) (1.2-3.4) K/uL [place] # (Auto) (0.11-0.59) K/uL Eos # (Auto) (0-0.5) K/uL Baso # (Auto) (0-0.2) K/uL Immature Gran # (Auto) (0.00-0.02) K/uL Sodium 145 (136-145) mmol/L Potassium 4.2 (3.5-5.1) mmol/L Chloride 115 H (98-107) mmol/L Carbon Dioxide 22 (21-32) mmol/L Anion Gap 8.0 (3-11) BUN 54 H (7-18) mg/dl Creatinine 3.30 H (0.6-1.2) mg/dl Est Cr Clr Drug Dosing 14.6 ml/min Est GFR ( Amer) 14.1 Est GFR (Non-Af Amer) 12.2 BUN/Creatinine Ratio 16.4 (10-20) Glucose 105 H (70-99) mg/dl Calcium 7.9 L (8.5-10.1) mg/dl Procalcitonin (0-0.5) ng/ml Urine Color Urine Appearance (Clear) Urine pH (4.5-7.5) Ur Specific [place] (1.000-1.030) Urine Protein (Negative) Urine Glucose (UA) (Negative) Urine Ketones (Negative) Urine Blood (Negative) Urine Nitrite (Negative) Urine Bilirubin (Negative) Urine Urobilinogen (Negative) Ur Leukocyte Esterase (Negative) Urine WBC (Auto) (0-5) /hpf Urine RBC (Auto) (0-4) /hpf U Hyaline Cast (Auto) (0-5) /lpf U Epithel Cells (Auto) (0-5) /lpf Urine Bacteria (Auto) (Negative) Other Casts (0) /lpf Urine Yeast (None Prsent) Diagnostic Findings Chest x-ray image personally reviewed by me and agree with the following report: XR chest 1V portable CLINICAL HISTORY: fever,assess for PNA COMPARISON STUDY: 09/26/2019 FINDINGS: Small bibasilar parenchymal infiltrates. Mid and upper lungs are clear. Pulmonary vasculature is prominent. IMPRESSION: Small bibasilar parenchymal infiltrates. Mild congestive failure. PG Care Time/CCT Total # of Minutes Spent Total Time Spent with Patient: Total time spent is greater than 50% in coordination of care (as documented) at patient's floor/unit and/or counseling patient: Coding Level of Care Code 37450 Subseq Hosp Care Lvl 3 Diagnoses Fever R50.9 Pneumonia J18.9 Urinary tract infection N39.0 Hematuria presence: without hematuria Urinary tract infection type: site unspecified Pulmonary edema J81.0 Chronicity: acute Chronic diastolic CHF (congestive heart failure) I50.32 CAD (coronary artery disease), [place] coronary artery I25.10 Diarrhea R19.7 Anemia of chronic disease D63.8 Leg wound, right S81.801A Chronic kidney disease, stage IV (severe) N18.4 Sleep apnea G47.30 Hypertension I10 DVT prophylaxis Z29.9 (1) Urinary tract infection Hematuria presence: without hematuria Urinary tract infection type: site unspecified Qualified Code(s): N39.0 - Urinary tract infection, site not specified (2) Pulmonary edema Chronicity: acute Qualified Code(s): J81.0 - Acute pulmonary edema
[2019-10-02 11:16] LABS: Appearance Urine Cloudy (Clear); Bacteria Urine Automated Negative (Negative); Bilirubin Urine Negative (Negative); Blood Urine Negative (Negative); Color Urine Yellow; Epithelial Cell Urine Auto >30 /lpf (0-5); Glucose Urine UA Negative (Negative); Ketones Urine Negative (Negative); Leukocyte Esterase Urine 1+ (Negative); Nitrite Urine Negative (Negative); Protein Urine 3+ (Negative); Specific Gravity Urine 1.021 (1.000-1.030); Urobilinogen Urine Negative (Negative)
[2019-10-02 11:29] LABS: RBC Urine Automated 0-4 /hpf (0-4)
--- NOTE | 2019-10-02 14:18 | Electrocardiogram Report ---
Test Reason : Blood Pressure : / mmHG Vent. Rate : 069 BPM Atrial Rate : 069 BPM P-R Int : 152 ms QRS Dur : 140 ms QT Int : 450 ms P-R-T Axes : -42 -25 113 degrees QTc Int : 482 ms Sinus rhythm Left bundle branch block Abnormal ECG When compared with ECG of 26-SEP-2019 18:08, Nonspecific T wave abnormality now evident in Anterior leads Confirmed by Gianni Chapman ([id number]) on 10/02/2019 2:18:40 PM Referred By: REFERRED SELF Confirmed By:Tyler Chapman
[2019-10-02] MEDS: ATORVASTATIN 40 MG TAB PO SCH (21:14)
[2019-10-03] MEDS: HEPARIN SOD 5,000 UNIT/0.5 ML VIAL SQ SCH ×3 (06:34→20:11)
[2019-10-03] MEDS: ASPIRIN 81 MG ECTAB PO SCH (07:37)
[2019-10-03] MEDS: HydrALAZINE TAB 50 MG TAB PO SCH ×3 (07:38→20:10)
[2019-10-03] MEDS: carvediloL 25 MG TAB PO SCH ×2 (07:38→20:10)
[2019-10-03] MEDS: ISOSORBIDE MONO EXTENDED REL 30 MG TABCR PO SCH (07:39)
[2019-10-03] MEDS: TORSEMIDE 10 MG TAB PO SCH (07:39)
[2019-10-03] MEDS: SACCHAROMYCES BOULARDII 250 MG CAP PO SCH (07:39)
[2019-10-03] MEDS: CLOPIDOGREL BISULFATE 75 MG TAB PO SCH (07:40)
[2019-10-03 07:55] LABS: Basophils # (auto) 0.02 K/uL (0-0.2); Basophils % (auto) 0.2 %; Eosinophils # (auto) 0.08 K/uL (0-0.5); Hematocrit (blood only) 28.7 % (37-47); Hemoglobin 8.9 g/dL (12.0-16.0); Immature Granulocytes # (auto) 0.17 K/uL (0.00-0.02); Lymphocytes # (auto) 2.11 K/uL (1.2-3.4); Lymphocytes % (auto) 25.2 %; Mean Corpuscular Hemoglobin 29.9 pg (25-34); Mean Corpuscular Volume 96.3 fL (80-100); Mean Platelet Volume 10.2 fL (7.4-10.4); Monocytes # (auto) 0.91 K/uL (0.11-0.59); Monocytes % (auto) 10.9 %; Neutrophils # (auto) 5.07 K/uL (1.4-6.5); Neutrophils % (auto) 60.7 %; Platelet Count 165 K/uL (130-400); RDW Coefficient of Variation 16.5 % (11.5-14.5); RDW Standard Deviation 58.4 fL (36.4-46.3); Red Blood Count 2.98 M/uL (4.2-5.4); White Blood Count 8.36 K/uL (4.8-10.8)
[2019-10-03 08:25] LABS: BUN Creatinine Ratio 15.9 (10-20); Calcium 8.1 mg/dl (8.5-10.1); Creatinine Clr Calc Pharmacy 13.5 ml/min; Est GFR (African American) 12.8; Est GFR (Non-African American) 11.1; Potassium 4.3 mmol/L (3.5-5.1)
[2019-10-03] MEDS: CEFEPIME 2,000 MG in SYRINGE 7.5 ML IV SCH (09:30)
[2019-10-03] MEDS ORDERED: COLCHICINE 0.6 MG TAB PO ONE (11:38)
--- NOTE | 2019-10-03 11:41 | Hospitalist Progress Note ---
Date of Service October 03, 2019 Assessment & Plan (1) Fever: Presented with fever initially thought to be due to her pneumonia and urinary tract infection This had resolved then for 6 days and returned again on the morning of 10/01 Fevers are now resolved on 10/02. Urine culture is growing yeast not Sheba albicans, and she does have a Owen catheter in place, however I do not think this is the source of her fever as she improved without any treatment for a funguria CBC without leukocytosis, procalcitonin previously elevated and then down to 0.7 even in the setting of renal failure Chest x-ray with bibasilar infiltrates which could be atelectasis She has no other signs or symptoms of ongoing infection and her leg wounds look improved from previous -Suspect fever from atelectasis which is now resolved with getting out of bed to chair and using incentive spirometry -If blood cultures remain no growth by tomorrow, will DC IV cefepime -Continue Levaquin for Pseudomonas leg wound -Follow fever curve and give Tylenol as needed -Follow blood cultures -Encouraged incentive spirometer and getting out of bed (2) Pneumonia: - CXR demonstrated b/l pleural effusion and possible bibasilar infiltrates again on repeat chest x-ray 10/01 - CXR may be more reflective of CHF rather than a pneumonia, but again has fevers as above - previous concerns for aspiration events on previous admissions; recently in [facility], increasing potential for hospital acquired pneumonia -Procalcitonin was elevated but is now improved but mildly elevated at 0.7-may have been due false elevation due to to renal failure -Continue po Levaquin to cover urine and skin as well as atypical organisms for pneumonia in addition to cefepime as above for gram-negative pneumonia - Speech Language Pathology consulted, appreciate recommendations - Blood culture x2 ngtd and blood cultures were redrawn again remain with no growth to date (3) Urinary tract infection: No complaints of dysuria Urine culture growing E.Coli -continue po levaquin Repeat UA on 10/01 shows a lot more epithelial cells and WBCs and is likely contaminated, with yeast not Sheba albicans on urine culture-likely contaminant and no need to treat Owen catheter remains in place-we will leave in place for now at her request but will discontinue hopefully in the next 1 to 2 days (4) Pulmonary edema: As below (5) Chronic diastolic CHF (congestive heart failure): With acute on chronic diastolic CHF - CXR demonstrated concern for congestive heart failure on admission, patient up 13kgs from last admission - BNP 45231 - Lasix given x 2 days and now back to home torsemide per nephrology rec - continue to track I/O, daily weights- negative a liter for this admission - Troponin 0.144 on admission, this is down from recent hospitalizations, no chest pain (6) CAD (coronary artery disease), [place] coronary artery: No acute issues - continue home aspirin, carvedilol, atorvastatin, Plavix, isosorbide, and Hydralazine (7) Diarrhea: Resolved Continue probiotics (8) Anemia of chronic disease: stable with hemoglobin 8.9, normocytic Transferrin saturation was 14% in 08/2019 -Was given Epogen on 09/30 by nephrology (9) Leg wound, right: Previously seeping, wound culture growing Pseudomonas aeruginosa- pansensitive Now appears much improved Consulted wound care - RLE - apply optifoam, change QOD and prn and follow up with wound clinic Continue levaquin for total 10-day course (10) Chronic kidney disease, stage IV (severe): Creatinine 3.3, baseline creat 3.5 Creatinine is stable today at 3.5 Was above 4 during admission last month Consulted nephrology, appreciate recommendations Avoid nephrotoxins where possible (11) Sleep apnea: Continue CPAP with 2L NC at night (12) Hypertension: Blood pressures are stable to mildly elevated -Continue hydralazine and carvedilol as well as torsemide Added Imdur at 30 mg as patient's blood pressures have been running 160s-180s systolically. She is not symptomatic but given her recent NSTEMI, will try to get better control over her blood pressures here. May need to be further titrated with her pcp (13) Gout: with possible acute flare in ankles -colchicine 0.6mg po x 1 now, none further given CKD -start prednisone 20mg po daily x 3 days (14) DVT prophylaxis: heparin Dispo: PT recommending rehab. Patient wishes to return home. Family is organizing increased caregivers and hospital bed for in the home. Family is also requesting palliative care consultation to help facilitate a discussion of the goals of care given her recurrent hospitalizations and declining overall status. Admission and Anticipated Discharge Date Admission Date: September 26, 2019 Subjective Reports feeling much better today, no further fevers. She is out of bed to chair and using her incentive spirometer. She denies cough or shortness of breath. She is starting to have pain again in her ankles left greater than right and feels similar to when she had a flare of gout last month. She reports in the past, this was treated with 1 dose of colchicine and a short course of prednisone with significant improvement. She would like to try that again. Review of Systems Review of Systems: All systems reviewed & are unremarkable except as noted in HPI & below Physical Exam Constitutional: WD/WN, vitals as above + obese Neck: trachea midline, no thyromegaly Respiratory: normal respiratory effort; no labored breathing Auscultation: + diminished lung sounds (At the bases bilaterally); no crackles, no rhonchi and no wheezes Cardiovascular: Rate/Rhythm: regular rate and regular rhythm Extremities: + edema (2+ pitting woody edema of the legs to the knees bilaterally, bilateral upper extremities and hands with 2+ pitting edema) Gastrointestinal (Abdomen): normal bowel sounds, soft, nontender, no hepatosplenomegaly Musculoskeletal: Extremities: no cyanosis and no clubbing +TTP over left medial ankle, no erythema Skin: + wound (Right distal anterior leg wound which appears superficial with very minimal drainage and surrounding erythema, left dorsal foot wound with 3 cm scab without surrounding erythema or drainage) Neurologic: moves all extremities and awake; no focal motor deficits Psychiatric: Orientation: alert, oriented x 3 and cooperative Speech: normal rate/rhythm/volume of speech Genitourinary: Woen catheter in place draining clear yellow urine Results & Data Results & Data ([facility]) Vital Signs (Past 12 Hours) Vital Signs Temp Pulse Resp BP Pulse Ox 10/03/19 06:50 36.4 C L 66 18 138/61 95 Laboratory Results 10/03/19 10/03/19 Range/Units 07:42 07:42 WBC 8.36 (4.8-10.8) K/uL RBC 2.98 L (4.2-5.4) M/uL Hgb 8.9 L (12.0-16.0) g/dL Hct 28.7 L (37-47) % MCV 96.3 (80-100) fL MCH 29.9 (25-34) pg MCHC 31.0 L (32-36) g/dL RDW Std Deviation 58.4 H (36.4-46.3) fL RDW Coeff of Nicolasa 16.5 H (11.5-14.5) % Plt Count 165 (130-400) K/uL MPV 10.2 (7.4-10.4) fL Immature Gran % (Auto) 2.0 % Neut % (Auto) 60.7 % Lymph % (Auto) 25.2 % Banks % (Auto) 10.9 % Eos % (Auto) 1.0 % Baso % (Auto) 0.2 % Neut # (Auto) 5.07 (1.4-6.5) K/uL Lymph # (Auto) 2.11 (1.2-3.4) K/uL Banks # (Auto) 0.91 H (0.11-0.59) K/uL Eos # (Auto) 0.08 (0-0.5) K/uL Baso # (Auto) 0.02 (0-0.2) K/uL Immature Gran # (Auto) 0.17 H (0.00-0.02) K/uL Sodium 143 (136-145) mmol/L Potassium 4.3 (3.5-5.1) mmol/L Chloride 114 H (98-107) mmol/L Carbon Dioxide 23 (21-32) mmol/L Anion Gap 6.0 (3-11) BUN 57 H (7-18) mg/dl Creatinine 3.58 H (0.6-1.2) mg/dl Est Cr Clr Drug Dosing 13.5 ml/min Est GFR ( Amer) 12.8 Est GFR (Non-Af Amer) 11.1 BUN/Creatinine Ratio 15.9 (10-20) Glucose 102 H (70-99) mg/dl Calcium 8.1 L (8.5-10.1) mg/dl PG Care Time/CCT Total # of Minutes Spent Total Time Spent with Patient: Total time spent is greater than 50% in coordination of care (as documented) at patient's floor/unit and/or counseling patient: Coding Level of Care Code 31321 Subseq Hosp Care Lvl 3 Diagnoses Fever R50.9 Pneumonia J18.9 Urinary tract infection N39.0 Hematuria presence: without hematuria Urinary tract infection type: site unspecified Pulmonary edema J81.0 Chronicity: acute Chronic diastolic CHF (congestive heart failure) I50.32 CAD (coronary artery disease), [place] coronary artery I25.10 Diarrhea R19.7 Anemia of chronic disease D63.8 Leg wound, right S81.801A Chronic kidney disease, stage IV (severe) N18.4 Sleep apnea G47.30 Hypertension I10 Gout M10.9 DVT prophylaxis Z29.9 (1) Urinary tract infection Hematuria presence: without hematuria Urinary tract infection type: site unspecified Qualified Code(s): N39.0 - Urinary tract infection, site not specified (2) Pulmonary edema Chronicity: acute Qualified Code(s): J81.0 - Acute pulmonary edema
[2019-10-03] MEDS: predniSONE 20 MG TAB PO SCH (13:27)
--- NOTE | 2019-10-03 16:36 | Palliative Care Consultation ---
Date of Consultation October 03, 2019 Assessment & Plan (1) Goals of care, counseling/discussion: Patient is an 84-year-old female with a past medical history significant for diastolic CHF-with preserved LV function, CAD, hypertension, CKD stage IV and GURPREET-CPAP/O2 nightly who presented to [facility] on [facility] with increased lower extremity edema, fever and chills. Chest x-ray showed small bilateral pleural effusions, moderate cardiomegaly, prominent pulmonary vascular markings consistent with CHF. Patient was also noted to have a UTI-grew out E. coli. Patient diuresed-reports her lower extremity edema has improved. -Patient is not interested in rehab. 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 Patient reports her daughter has a prior TBI-functions well but cannot manage finances. Patient has been since 12/31/2011. -Patient states she does have advanced directives, she named her 2 sons as power of deputy prosecuting attorney. Her one son is Dr. Griffin Watson -general surgeon here at [facility], her other son Tan is a physical therapist. -Patient clearly stated she would not be interested in dialysis should her renal function continues deteriorate. Her current CODE STATUS is DNR. -Patient states she feels that coming to the hospital is still helpful-is not interested in considering hospice at this time. Plan is to return home with additional hired caregivers. -Patient states she does light cleaning at home, does have a cleaning lady come in to help with heavier work, she continues to do the cooking and her daughter does the dishes -Patient's sharepoint administrator is Dr. Lopez-she is to be enrolled in their CHF clinic. Patient states she does weigh herself daily. -Did discuss when and how to involve hospice care-patient voiced understanding. -Spoke with patient's son, Dr. Griffin Watson-understands that his mother does not want to do any rehab-being isolated from the family for several weeks is not what she wants to do. [facility] has a home health palliative service-we will ask case management to see if she would qualify. -Will continue to follow and assist patient and family with medical decision making. (2) Chronic diastolic CHF (congestive heart failure): Improving, continues to have significant lower extremity edema (3) Pulmonary edema: Improved-clear breath sounds on exam Chronicity: acute Qualified Code(s): J81.0 - Acute pulmonary edema (4) Chronic kidney disease, stage IV (severe): Creatinine 3.58 this a.m., patient states she would not want dialysis (5) Ankle pain, right: Possible gout-received 1 dose of colchicine History of Present Illness Reason for Consultation: Discuss goals of care Requesting Physician: Dr. Jorgensen Attending Physician: Lashon Jorgensen MD History of Present Illness Patient is an 84-year-old female with a past medical history significant for diastolic CHF-with preserved LV function, CAD, hypertension, CKD stage IV and GURPREET-CPAP/O2 nightly who presented to [facility] on 09/25 with increased lower extremity edema, fever and chills. Chest x-ray showed small bilateral pleural effusions, moderate cardiomegaly, prominent pulmonary vascular markings consistent with CHF. Patient was also noted to have a UTI-grew out E. coli. Patient diuresed-reports her lower extremity edema has improved. -Patient is not interested in rehab. Her goal is to return home, she lives with her daughter who just retired after 45 years working for [employer]. Patient reports her daughter has a prior TBI-functions well but cannot manage finances. Patient has been since 12/31/2011. -Patient states she does have advanced directives, she named her 2 sons as power of deputy prosecuting attorney. Her one son is Dr. Griffin Watson -general surgeon here at [facility], her other son Tan is a physical therapist. -Patient clearly stated she would not be interested in dialysis should her renal function continues deteriorate. Her current CODE STATUS is DNR. -Patient states she feels that coming to the hospital is still helpful-is not interested in considering hospice at this time. Plan is to return home with additional hired caregivers. -Patient states she does light cleaning at home, does have a cleaning lady come in to help with heavier work, she continues to do the cooking and her daughter does the dishes -Patient's sharepoint administrator is Dr. Lopez-she is to be enrolled in their CHF clinic. Patient states she does weigh herself daily. -Did discuss when and how to involve hospice care-patient voiced understanding. -Spoke with patient's son, Dr. Griffin Watson-understands that his mother does not want to do any rehab-being isolated from the family for several weeks is not what she wants to do. [facility] has a home health palliative service-we will ask case management to see if she would qualify. Allergies Allergy/AdvReac Type Severity Reaction Status Date / Time sulfamethoxazole Allergy Intermediate felt like Verified 09/26/19 16:59 walking on eggs trimethoprim Allergy Intermediate felt like Verified 09/26/19 16:59 walking on eggs Bactrim Allergy Unknown felt like Verified 11/04/17 07:47 walking on eggs lisinopril Allergy Unknown UNSURE OF Verified 09/26/19 16:59 REACTION streptomycin Allergy Unknown UNSURE Verified 09/26/19 16:59 REACTION Home Medications Home Medications Medication Instructions Recorded Confirmed Type aspirin [Aspir-81] 81 mg PO QAM 12/24/17 09/26/19 History miscellaneous medical supply #1 ea 04/12/19 08/18/19 Rx carvedilol 25 mg tablet 25 mg PO BID #180 tab 04/24/19 09/26/19 Rx isosorbide mononitrate 60 mg 60 mg PO QAM #90 tab 05/12/19 09/26/19 Rx tablet,extended release 24 hr atorvastatin 80 mg tablet 80 mg PO QPM #90 tab 07/07/19 09/26/19 Rx ergocalciferol (vitamin D2) 1,250 50,000 unit PO MONTHLY #3 cap 07/07/19 09/26/19 Rx mcg (50,000 unit) capsule hydralazine 50 mg tablet 100 mg PO TID #560 tab 07/07/19 09/26/19 Rx clopidogrel 75 mg PO QAM 08/01/19 09/26/19 History Saccharomyces boulardii [Florastor] 250 mg PO QAM 09/26/19 09/26/19 History torsemide 5 mg PO QAM 09/26/19 09/26/19 History Patient History Medical History Anemia CHRONIC; baseline ~ 11 Chronic diastolic CHF (congestive heart failure) Chronic respiratory failure with hypoxia Gout History of nephrolithiasis (Inactive) History of ventricular tachycardia LBBB (left bundle branch block) CHRONIC [place] atrial fibrillation Myocardial Infarction IPMI S/P RCA STENTS X 2 (2011) Osteoarthritis Sleep apnea CPAP + O2 2L HS Umbilical hernia Venous stasis dermatitis of both lower extremities Vitamin D deficiency (Chronic) Surgical History H/O cardiac catheterization 2006 @ [facility] and 03/21/2012 @ [facility] RCA STENTS X 2. H/O heart artery stent RCA STENTS X 2 03/21/2012 History of appendectomy History of cataract surgery BILATERAL History of cystoscopy CYSTO/STENT EXCHANGE 02/20/19 = MAC SEDATION AT [facility]. No complications per records. History of tonsillectomy Hx of prior ablation treatment RFA S/P RVOT VTACH (NO RECURRENCE SINCE 2014 ABLATION PER CARDIO) Family History Unknown Hypertension Other No family history of adverse response to anesthesia Social History Preferred Language: Indonesian Communication Ability: Effective Visual Impairment: No Limitations Hearing Ability: Normal Head Of Commission Department Required: No Beliefs That Will Affect Care: None marital status: / Current Living Situation: Family Current Living Situation Comment: Lives with special needs daughter Other Information That Helps Us Care for You: No Feels Safe at Home: Yes Safety Concerns: Feels Safe At This Time Smoking Status: Never smoker Second Hand Exposure: No ; Hx Alcohol Use: No Hx Substance Use: No Childhood Exposure to Second-Hand Smoke: No Dental Care, Regularly: No Physical Activity Frequency: Does not Exercise Seatbelt Use: always Sunscreen Use: Yes Review of Systems Review of Systems: Patient denies fever, chills, increased shortness of breath, chest pain or abdominal pain. Patient denies urinary incontinence-currently has a Owen in place Positive for chronic lower extremity edema-improved per patient Positive for right foot pain-history of gout Physical Exam Physical Exam: PE: Patient awake alert, no acute distress HEENT: EOMI, hearing within normal limits CV: Regular rate, lower extremity edema to the level of the knees Abdomen: Soft, nontender Extremities: Mild weakness Neuro: Alert and oriented x4 Results & Data Vital Signs (Past 12 Hours) Vital Signs Temp Pulse Resp BP Pulse Ox 10/03/19 15:21 99.0 F 74 16 145/73 H 94 10/03/19 06:50 97.5 F L 66 18 138/61 95 PG Care Time/CCT Total # of Minutes Spent Total Time Spent with Patient: Total time spent 70 minutes with greater than 50% of the time spent at bedside expressing patient's current status, discussing treatment options and goals of care. Spoke with patient's son by phone. Coding Level of Care Code 34694 Inpt Consult Level 3 Diagnoses Goals of care, counseling/discussion Z71.89 Chronic diastolic CHF (congestive heart failure) I50.32 Pulmonary edema J81.0 Chronicity: acute Chronic kidney disease, stage IV (severe) N18.4 Ankle pain, right M25.571 Time Spent (min) 70
[2019-10-03] MEDS: levoFLOXacin 500 MG TAB PO SCH (16:52)
[2019-10-03] MEDS: ATORVASTATIN 40 MG TAB PO SCH (20:11)
[2019-10-04] MEDS: HEPARIN SOD 5,000 UNIT/0.5 ML VIAL SQ SCH ×3 (05:41→21:24)
[2019-10-04 08:19] LABS: BUN Creatinine Ratio 17.5 (10-20); Creatinine Clr Calc Pharmacy 13.6 ml/min; Est GFR (African American) 12.7; Potassium 4.4 mmol/L (3.5-5.1)
[2019-10-04] MEDS: carvediloL 25 MG TAB PO SCH ×2 (08:55→20:41)
[2019-10-04] MEDS: TORSEMIDE 10 MG TAB PO SCH (08:56)
[2019-10-04] MEDS: ASPIRIN 81 MG ECTAB PO SCH (08:56)
[2019-10-04] MEDS: predniSONE 20 MG TAB PO SCH (08:56)
[2019-10-04] MEDS: SACCHAROMYCES BOULARDII 250 MG CAP PO SCH (08:56)
[2019-10-04] MEDS: CLOPIDOGREL BISULFATE 75 MG TAB PO SCH (08:56)
[2019-10-04] MEDS: ISOSORBIDE MONO EXTENDED REL 30 MG TABCR PO SCH (08:56)
[2019-10-04] MEDS: HydrALAZINE TAB 50 MG TAB PO SCH ×3 (08:57→20:41)
--- NOTE | 2019-10-04 12:34 | Hospitalist Progress Note ---
Date of Service October 04, 2019 Assessment & Plan (1) Fever: Presented with fever initially thought to be due to her pneumonia and urinary tract infection This had resolved then for 6 days and returned again on the morning of 10/01 Fevers are now resolved since 10/02. Urine culture is growing yeast not Sheba albicans, and she does have a Owen catheter in place, however I do not think this is the source of her fever as she improved without any treatment for a funguria CBC without leukocytosis, procalcitonin previously elevated and then down to 0.7 even in the setting of renal failure Chest x-ray with bibasilar infiltrates which could be atelectasis She has no other signs or symptoms of ongoing infection and her leg wounds look improved from previous -Suspect fever was from atelectasis which is now resolved with getting out of bed to chair and using incentive spirometry -blood cultures remain no growth to date x24 hours-will DC IV cefepime -Continue Levaquin for Pseudomonas leg wound for total of 10 days -Follow fever curve and give Tylenol as needed -Follow blood cultures -Encouraged continued incentive spirometer and getting out of bed (2) Pneumonia: - CXR demonstrated b/l pleural effusion and possible bibasilar infiltrates again on repeat chest x-ray 10/01 - CXR may be more reflective of CHF rather than a pneumonia, but again had fevers as above and therefore cefepime was added empirically for 48 hours - previous concerns for aspiration events on previous admissions; recently in [facility], increasing potential for hospital acquired pneumonia -Procalcitonin was elevated but is now improved but mildly elevated at 0.7-may have been due false elevation due to to renal failure -Continue po Levaquin to cover for previous UTI and skin but no longer needed for gram-negative pneumonia coverage - Speech Language Pathology consulted, appreciate recommendations - Blood culture x2 ngtd and blood cultures were redrawn again remain with no growth to date (3) Urinary tract infection: No complaints of dysuria Urine culture growing E.Coli upon admission as well as lactobacillus-continue po levaquin x10-day course Repeat UA on 10/01 shows a lot more epithelial cells and WBCs and is likely contaminated, with yeast not Sheba albicans on urine culture-likely contaminant and no need to treat Owen catheter remains in place-we will leave in place again at her request but will discontinue hopefully in the next 1 to 2 days (4) Chronic diastolic CHF (congestive heart failure): With acute on chronic diastolic CHF on admission - CXR demonstrated concern for congestive heart failure on admission, patient up 13kgs from last admission - BNP 49660 - Lasix given x 2 days and now back to home torsemide per nephrology rec -Much improved symptomatically, although is clearly hypervolemic on examination and her weight is not changed really since admission - continue to track I/O, daily weights- - Troponin 0.144 on admission, this is down from recent hospitalizations, no chest pain (5) Pulmonary edema: As below (6) CAD (coronary artery disease), [place] coronary artery: No acute issues - continue home aspirin, carvedilol, atorvastatin, Plavix, isosorbide, and Hydralazine (7) Diarrhea: Resolved Continue probiotics (8) Anemia of chronic disease: stable with hemoglobin 8.9, normocytic Transferrin saturation was 14% in 08/2019 -Was given Epogen on 09/30 by nephrology (9) Leg wound, right: Previously seeping, wound culture growing Pseudomonas aeruginosa- pansensitive Now appears much improved Consulted wound care - RLE - apply optifoam, change QOD and prn and follow up with wound clinic Continue levaquin for total 10-day course (10) Chronic kidney disease, stage IV (severe): Creatinine 3.3, baseline creat 3.5 Creatinine is stable today at 3.6 Was above 4 during admission last month Consulted nephrology, appreciate recommendations Avoid nephrotoxins where possible (11) Sleep apnea: Continue CPAP with 2L NC at night (12) Hypertension: Blood pressures acceptable -Continue hydralazine and carvedilol as well as torsemide Added Imdur at 30 mg as patient's blood pressures have been running 160s-180s systolically. She is not symptomatic but given her recent NSTEMI, will try to get better control over her blood pressures here. May need to be further titrated with her pcp (13) Gout: with possible acute flare in ankles Now significantly improved with 1 dose of colchicine and starting prednisone 20 mg daily -Continue prednisone 20mg po daily x 5-7 days (14) DVT prophylaxis: heparin Dispo: PT recommending rehab. Patient wishes to return home. Family is organizing increased caregivers and hospital bed for in the home. Appreciate palliative care consultation to help facilitate a discussion of the goals of care given her recurrent hospitalizations and declining overall status. Patient continues to wish to return the hospital, but is agreeable to entering a palliative home health plan after discharge Discharge will likely be in the next 2 to 3 days after caregivers are arranged for 24-7 care Admission and Anticipated Discharge Date Admission Date: September 26, 2019 Subjective Patient reports feeling so much better today. All of her joints feel much less painful since starting colchicine and prednisone yesterday. Her appetite has returned. She is moving her bowels and making urine. She is still hesitant to remove the Owen catheter as she fears she will have incontinence as it takes a while to get someone to help her to go to the bathroom when she has to go. She denies any cough or chest pain or shortness of breath. Denies nausea or abdominal pains or back pain. She overall is very pleased and happy that she is feeling so much better today. Remains afebrile now for over 2 days. We discussed the possibility of being more aggressive and treating the yeast in her urine with a 5-day course of instilled antibiotics in the bladder, however she is in agreement to not treat as she is feeling better without any treatment and the fevers have gone away. She understands the small possibility that this could become a more systemic infection but does not want to be aggressive with treatment. I also discussed this with her son, Issac, and he is also in agreement with not treating. Review of Systems Review of Systems: All systems reviewed & are unremarkable except as noted in HPI & below Physical Exam Constitutional: WD/WN, vitals as above + obese Eyes: + anicteric sclerae Neck: trachea midline, no thyromegaly Respiratory: normal respiratory effort; no labored breathing Auscultation: no crackles, no rhonchi and no wheezes Cardiovascular: Rate/Rhythm: regular rate and regular rhythm Extremities: + edema (2+ pitting woody edema of the legs to the knees bilaterally, bilateral upper extremities and hands with 2+ pitting edema) Gastrointestinal (Abdomen): normal bowel sounds, soft, nontender, no hepatosplenomegaly Musculoskeletal: Extremities: no cyanosis and no clubbing Skin: + wound (Right distal anterior leg wound which appears superficial with very minimal drainage and surrounding erythema, left dorsal foot wound with 3 cm scab without surrounding erythema or drainage) Neurologic: moves all extremities and awake; no focal motor deficits Psychiatric: A+Ox3, euthymic affect Orientation: cooperative Speech: normal rate/rhythm/volume of speech Genitourinary: Owen catheter in place draining clear yellow urine Lymphatic: no lymphedema Results & Data Results & Data ([facility]) Vital Signs (Past 12 Hours) Vital Signs Temp Pulse Resp BP Pulse Ox 10/04/19 07:54 36.9 C 65 18 130/63 94 Laboratory Results 10/04/19 Range/Units 07:14 Sodium 142 (136-145) mmol/L Potassium 4.4 (3.5-5.1) mmol/L Chloride 113 H (98-107) mmol/L Carbon Dioxide 22 (21-32) mmol/L Anion Gap 7.0 (3-11) BUN 63 H (7-18) mg/dl Creatinine 3.60 H (0.6-1.2) mg/dl Est Cr Clr Drug Dosing 13.6 ml/min Est GFR ( Amer) 12.7 Est GFR (Non-Af Amer) 11.0 BUN/Creatinine Ratio 17.5 (10-20) Glucose 143 H (70-99) mg/dl Calcium 8.0 L (8.5-10.1) mg/dl PG Care Time/CCT Total # of Minutes Spent Total Time Spent with Patient: Total time spent is greater than 50% in coordination of care (as documented) at patient's floor/unit and/or counseling patient: Coding Level of Care Code 66060 Subseq Hosp Care Lvl 2 Diagnoses Fever R50.9 Pneumonia J18.9 Urinary tract infection N39.0 Hematuria presence: without hematuria Urinary tract infection type: site unspecified Chronic diastolic CHF (congestive heart failure) I50.32 Pulmonary edema J81.0 Chronicity: acute CAD (coronary artery disease), [place] coronary artery I25.10 Diarrhea R19.7 Anemia of chronic disease D63.8 Leg wound, right S81.801A Chronic kidney disease, stage IV (severe) N18.4 Sleep apnea G47.30 Hypertension I10 Gout M10.9 DVT prophylaxis Z29.9 (1) Urinary tract infection Hematuria presence: without hematuria Urinary tract infection type: site unspecified Qualified Code(s): N39.0 - Urinary tract infection, site not specified (2) Pulmonary edema Chronicity: acute Qualified Code(s): J81.0 - Acute pulmonary edema
[2019-10-04] MEDS: ATORVASTATIN 40 MG TAB PO SCH (20:41)
[2019-10-05] MEDS: HEPARIN SOD 5,000 UNIT/0.5 ML VIAL SQ SCH ×3 (05:42→21:20)
[2019-10-05] MEDS: CLOPIDOGREL BISULFATE 75 MG TAB PO SCH (09:02)
[2019-10-05] MEDS: TORSEMIDE 10 MG TAB PO SCH (09:03)
[2019-10-05] MEDS: ISOSORBIDE MONO EXTENDED REL 30 MG TABCR PO SCH (09:03)
[2019-10-05] MEDS: SACCHAROMYCES BOULARDII 250 MG CAP PO SCH (09:03)
[2019-10-05] MEDS: predniSONE 20 MG TAB PO SCH (09:03)
[2019-10-05] MEDS: carvediloL 25 MG TAB PO SCH ×2 (09:04→20:39)
[2019-10-05] MEDS: HydrALAZINE TAB 50 MG TAB PO SCH ×3 (09:04→20:36)
[2019-10-05] MEDS: ASPIRIN 81 MG ECTAB PO SCH (09:05)
--- NOTE | 2019-10-05 15:23 | Palliative Care Progress Note ---
Date of Service October 05, 2019 Assessment & Plan (1) Goals of care, counseling/discussion: Patient is an 84-year-old female with a past medical history significant for diastolic CHF-with preserved LV function, CAD, hypertension, CKD stage IV and GURPREET-CPAP/O2 nightly who presented to [facility] on 09/25 with increased lower extremity edema, fever and chills. Chest x-ray showed small bilateral pleural effusions, moderate cardiomegaly, prominent pulmonary vascular markings consistent with CHF. Patient was also noted to have a UTI-grew out E. coli. Patient diuresed-now on p.o. torsemide -Patient is not interested in rehab. Her goal is to return home, she lives with her daughter who just retired after 45 years working for [email or web address] food [employer]. Patient reports her daughter has a prior TBI-functions well but cannot manage finances. Patient has been since 12/31/2011. -Patient states she does have advanced directives, she named her 2 sons as power of criminal attorney. Her one son is Dr. Griffin Watson -general surgeon here at [facility], her other son Tan is a physical therapist. -Patient clearly stated she would not be interested in dialysis should her renal function continues deteriorate. Her current CODE STATUS is DNR. -Patient states she feels that coming to the hospital is still helpful-is not interested in considering hospice at this time. Plan is to return home with additional hired caregivers. -Patient referred to [facility] palliative home health program -patient agreeable to enrollment. -Patient states she does light cleaning at home, does have a cleaning lady come in to help with heavier work, she continues to do the cooking and her daughter does the dishes -Patient's road production general manager is Dr. Lopez-she is to be enrolled in their CHF clinic. Patient states she does weigh herself daily. -Will continue to follow and assist patient and family with medical decision making. (2) Chronic diastolic CHF (congestive heart failure): Improving, continues to have significant lower extremity edema (3) Pulmonary edema: Improved-clear breath sounds on exam (4) Chronic kidney disease, stage IV (severe): Creatinine 3.6 this a.m., patient states she would not want dialysis (5) Ankle pain, right: Possible gout-received 1 dose of colchicine-left foot pain resolved Subjective Patient awake and alert, no acute distress. Patient's respiratory status improved from prior exam on 10/02 Patient reports she was able to stand from sitting in the chair with min assist, she was able to ambulate to the bathroom with supervision, denies increased shortness of breath with ambulation. Patient states her left foot pain has resolved Review of Systems Review of Systems: Patient denies fever, chills, chest pain, increased shortness of breath, or abdominal pain Physical Exam Physical Exam: PE: Awake and alert, no acute distress HEENT: EOMI, hearing within normal limits Respirations: Unlabored, clear breath sounds bilaterally CV: Regular rate, chronic lower extremity edema appears increased on the left Abdomen: Soft, nontender Extremities: Chronic edema Neuro: Alert and oriented x4 Results & Data Vital Signs (Past 12 Hours) Vital Signs Temp Pulse Resp BP Pulse Ox 10/05/19 14:17 57 L 116/64 10/05/19 07:55 97.7 F 60 16 130/50 L 96 PG Care Time/CCT Total # of Minutes Spent Total Time Spent with Patient: Total time spent 35 minutes with greater than 50% of the time spent at bedside evaluating patient's current status and reviewing plan of care Coding Level of Care Code 54444 Subseq Hosp Care Lvl 3 Diagnoses Goals of care, counseling/discussion Z71.89 Chronic diastolic CHF (congestive heart failure) I50.32 Pulmonary edema J81.0 Chronicity: acute Chronic kidney disease, stage IV (severe) N18.4 Ankle pain, right M25.571 Time Spent (min) 35 (1) Pulmonary edema Chronicity: acute Qualified Code(s): J81.0 - Acute pulmonary edema
--- NOTE | 2019-10-05 17:12 | Hospitalist Progress Note ---
Date of Service October 05, 2019 Assessment & Plan (1) Fever: Presented with fever initially thought to be due to her pneumonia and urinary tract infection This had resolved then for 6 days and returned again on the morning of 10/01 Fevers are now resolved since 10/02. Urine culture is growing Yeast/not Sheba albicans, and she does have a Owen catheter in place, however I do not think this is the source of her fever as she improved without any treatment for a funguria CBC without leukocytosis, procalcitonin previously elevated and then down to 0.7 even in the setting of renal failure Chest x-ray with bibasilar infiltrates which could be atelectasis She has no other signs or symptoms of ongoing infection and her leg wounds look improved from previous -Suspect fever on 10/01 was from atelectasis which is now resolved with getting out of bed to chair and using incentive spirometry -blood cultures remain no growth to date x24 hours-since discontinued the IV cefepime -She is now completed a 10-day course of first Zosyn and then Levaquin for Pseudomonas leg wound -Follow blood cultures -Encouraged continued incentive spirometer and getting out of bed which she continues to do daily (2) Pneumonia: - CXR demonstrated b/l pleural effusion and possible bibasilar infiltrates again on repeat chest x-ray 10/01 - CXR may be more reflective of CHF rather than a pneumonia, but again had fevers as above and therefore cefepime was added empirically for 48 hours - previous concerns for aspiration events on previous admissions; recently in [facility], increasing potential for hospital acquired pneumonia -Procalcitonin was elevated but is now improved but mildly elevated at 0.7-may have been due false elevation due to to renal failure -Completed a course of Zosyn and then Levaquin to cover for previous UTI and skin but no longer needed for gram-negative pneumonia coverage - Speech Language Pathology consulted, appreciate recommendations - Blood culture x2 ngtd and blood cultures were redrawn again remain with no growth to date (3) Urinary tract infection: No complaints of dysuria Urine culture growing E.Coli upon admission as well as lactobacillus-completed a 10-day course of Zosyn and then Levaquin Repeat UA on 10/01 shows a lot more epithelial cells and WBCs and is likely contaminated, with yeast not Sheba albicans on urine culture-likely contaminant and no need to treat Owen catheter remains in place-we will leave in place again at her request but will discontinue prior to discharge (4) Chronic diastolic CHF (congestive heart failure): With acute on chronic diastolic CHF on admission - CXR demonstrated concern for congestive heart failure on admission, patient up 13kgs from last admission - BNP 88351 - Lasix given x 2 days and then back to home torsemide per nephrology rec -Much improved symptomatically, although is clearly hypervolemic on examination and her weight is not changed really since admission - continue to track I/O, daily weights- - Troponin 0.144 on admission, this is down from recent hospitalizations, no chest pain -Increase diuretics as needed for symptoms of volume overload (5) Pulmonary edema: As below (6) CAD (coronary artery disease), [place] coronary artery: No acute issues - continue home aspirin, carvedilol, atorvastatin, Plavix, isosorbide, and Hydralazine (7) Diarrhea: Resolved Continue probiotics (8) Anemia of chronic disease: stable with hemoglobin 8.9, normocytic Transferrin saturation was 14% in 08/2019 -Was given Epogen on 09/30 by nephrology (9) Leg wound, right: Previously seeping, wound culture growing Pseudomonas aeruginosa- pansensitive Now appears much improved Consulted wound care - RLE - apply optifoam, change QOD and prn and follow up with wound clinic Completed Carlitosaquin for total 10-day course (10) Chronic kidney disease, stage IV (severe): Creatinine 3.3, baseline creat 3.5 Creatinine is stable at 3.6 Was above 4 during admission last month Consulted nephrology, appreciate recommendations Avoid nephrotoxins where possible (11) Sleep apnea: Continue CPAP with 2L NC at night (12) Hypertension: Blood pressures acceptable -Continue hydralazine and carvedilol as well as torsemide Added Imdur at 30 mg as patient's blood pressures have been running 160s-180s systolically. She is not symptomatic but given her recent NSTEMI, will try to get better control over her blood pressures here. May need to be further titrated with her pcp (13) Gout: with acute flare in ankles here Now significantly improved with 1 dose of colchicine and starting prednisone 20 mg daily In fact, she has been able to ambulate more since starting prednisone than she has for many weeks and feels excellent She is interested in tapering down the prednisone and staying on a low-dose like prednisone 5 mg once daily for comfort. She is aware of long-term risks associated with prednisone but would like to stay on it after discharge. I feel this is reasonable given that she is going home to a palliative setting. -Continue prednisone 20mg po daily x1 more day and then go to 10 mg daily x2 days on Wednesday and Wednesday and then down to 5 mg daily chronically (14) DVT prophylaxis: heparin SQ Dispo: PT recommending rehab. Patient wishes to return home. Family is organizing increased caregivers and hospital bed for in the home. Appreciate palliative care consultation to help facilitate a discussion of the goals of care given her recurrent hospitalizations and declining overall status. Patient continues to wish to return the hospital if needed, but is agreeable to entering a palliative home health plan after discharge Discharge will likely be in the next 2 to 3 days after caregivers are arranged for 24-7 care-hospital bed is being delivered on Wednesday, but 24 caregivers are not in place yet Admission and Anticipated Discharge Date Admission Date: September 26, 2019 Subjective Patient reports feeling very well today. She was pleased that she was able to move around more easily with walking to the bathroom and back to the bed and has no pain. Her edema in her arms and hands is also much improved. She denies chest pains or shortness of breath, no cough. Remains afebrile. No abdominal pains. She is eating very well. We discussed the possibility of staying on a low-dose of prednisone long-term as it has helped her feel so much better. Review of Systems Review of Systems: All systems reviewed & are unremarkable except as noted in HPI & below Physical Exam Constitutional: WD/WN, vitals as above + obese Eyes: + anicteric sclerae Neck: trachea midline, no thyromegaly Respiratory: normal respiratory effort; no labored breathing Auscultation: no crackles, no rhonchi and no wheezes Cardiovascular: Rate/Rhythm: regular rate and regular rhythm Extremities: + edema (2+ pitting woody edema of the legs to the knees bilaterally, bilateral upper extremities and hands with resolved edema) Gastrointestinal (Abdomen): normal bowel sounds, soft, nontender, no hepatosplenomegaly Musculoskeletal: Extremities: no cyanosis and no clubbing Skin: + wound (Right distal anterior leg wound with OPTi foam in place) Neurologic: moves all extremities and awake; no focal motor deficits Psychiatric: A+Ox3, euthymic affect Orientation: cooperative Genitourinary: Owen catheter in place with clear yellow urine Results & Data Results & Data ([facility]) Vital Signs (Past 12 Hours) Vital Signs Temp Pulse Pulse Resp BP BP Pulse Ox 10/05/19 16:01 36.5 C 57 L 16 121/63 96 10/05/19 14:17 57 L 116/64 10/05/19 07:55 36.5 C 60 16 130/50 L 96 PG Care Time/CCT Total # of Minutes Spent Total Time Spent with Patient: Total time spent is greater than 50% in coordination of care (as documented) at patient's floor/unit and/or counseling patient: Coding Level of Care Code 12739 Subseq Hosp Care Lvl 2 Diagnoses Fever R50.9 Pneumonia J18.9 Urinary tract infection N39.0 Hematuria presence: without hematuria Urinary tract infection type: site unspecified Chronic diastolic CHF (congestive heart failure) I50.32 Pulmonary edema J81.0 Chronicity: acute CAD (coronary artery disease), [place] coronary artery I25.10 Diarrhea R19.7 Anemia of chronic disease D63.8 Leg wound, right S81.801A Chronic kidney disease, stage IV (severe) N18.4 Sleep apnea G47.30 Hypertension I10 Gout M10.9 DVT prophylaxis Z29.9 (1) Urinary tract infection Hematuria presence: without hematuria Urinary tract infection type: site unspecified Qualified Code(s): N39.0 - Urinary tract infection, site not specified (2) Pulmonary edema Chronicity: acute Qualified Code(s): J81.0 - Acute pulmonary edema
[2019-10-05] MEDS: ATORVASTATIN 40 MG TAB PO SCH (20:40)
[2019-10-06] MEDS: HEPARIN SOD 5,000 UNIT/0.5 ML VIAL SQ SCH ×3 (06:16→22:01)
[2019-10-06 07:44] LABS: BUN Creatinine Ratio 21.8 (10-20); Calcium 7.7 mg/dl (8.5-10.1); Creatinine Clr Calc Pharmacy 13.5 ml/min; Est GFR (African American) 12.4; Est GFR (Non-African American) 10.7; Potassium 4.7 mmol/L (3.5-5.1)
[2019-10-06] MEDS: HydrALAZINE TAB 50 MG TAB PO SCH ×3 (08:59→20:22)
[2019-10-06] MEDS: carvediloL 25 MG TAB PO SCH ×2 (09:00→20:22)
[2019-10-06] MEDS: ASPIRIN 81 MG ECTAB PO SCH (09:01)
[2019-10-06] MEDS: SACCHAROMYCES BOULARDII 250 MG CAP PO SCH (09:01)
[2019-10-06] MEDS: TORSEMIDE 10 MG TAB PO SCH (09:01)
[2019-10-06] MEDS: predniSONE 20 MG TAB PO SCH (09:02)
[2019-10-06] MEDS: CLOPIDOGREL BISULFATE 75 MG TAB PO SCH (09:02)
[2019-10-06] MEDS: ISOSORBIDE MONO EXTENDED REL 30 MG TABCR PO SCH (09:02)
--- NOTE | 2019-10-06 19:13 | Hospitalist Progress Note ---
Date of Service October 06, 2019 Assessment & Plan (1) Fever: Presented with fever initially thought to be due to her pneumonia and urinary tract infection This had resolved then for 6 days and returned again on the morning of 10/01 Fevers are now resolved since 10/02. Urine culture is growing Yeast/not Sheba albicans, and she does have a Owen catheter in place, however I do not think this is the source of her fever as she improved without any treatment for a funguria CBC without leukocytosis, procalcitonin previously elevated and then down to 0.7 even in the setting of renal failure Chest x-ray with bibasilar infiltrates which could be atelectasis She has no other signs or symptoms of ongoing infection and her leg wounds look improved from previous -Suspect fever on 10/01 was from atelectasis which is now resolved with getting out of bed to chair and using incentive spirometry -blood cultures remain no growth to date x24 hours-since discontinued the IV cefepime -She is now completed a 10-day course of first Zosyn and then Levaquin for Pseudomonas leg wound -Follow blood cultures -Encouraged continued incentive spirometer and getting out of bed which she continues to do daily (2) Pneumonia: - CXR demonstrated b/l pleural effusion and possible bibasilar infiltrates again on repeat chest x-ray 10/01 - CXR may be more reflective of CHF rather than a pneumonia, but again had fevers as above and therefore cefepime was added empirically for 48 hours - previous concerns for aspiration events on previous admissions; recently in [facility], increasing potential for hospital acquired pneumonia -Procalcitonin was elevated but is now improved but mildly elevated at 0.7-may have been due false elevation due to to renal failure -Completed a course of Zosyn and then Levaquin to cover for previous UTI and skin but no longer needed for gram-negative pneumonia coverage - Speech Language Pathology consulted, appreciate recommendations - Blood culture x2 ngtd and blood cultures were redrawn again remain with no growth to date (3) Urinary tract infection: No complaints of dysuria Urine culture growing E.Coli upon admission as well as lactobacillus-completed a 10-day course of Zosyn and then Levaquin Repeat UA on 10/01 shows a lot more epithelial cells and WBCs and is likely contaminated, with yeast not Sheba albicans on urine culture-likely contaminant and no need to treat Owen catheter remains in place-we will leave in place again at her request but will discontinue prior to discharge (4) Chronic diastolic CHF (congestive heart failure): With acute on chronic diastolic CHF on admission - CXR demonstrated concern for congestive heart failure on admission, patient up 13kgs from last admission - BNP 85054 - Lasix given x 2 days and then back to home torsemide per nephrology rec -Much improved symptomatically, although is clearly hypervolemic on examination and her weight is not changed really since admission - continue to track I/O, daily weights- - Troponin 0.144 on admission, this is down from recent hospitalizations, no chest pain -Increase diuretics as needed for symptoms of volume overload (5) Pulmonary edema: As above (6) CAD (coronary artery disease), [place] coronary artery: No acute issues - continue home aspirin, carvedilol, atorvastatin, Plavix, isosorbide, and Hydralazine (7) Diarrhea: Resolved Continue probiotics (8) Anemia of chronic disease: stable with hemoglobin 8.9, normocytic Transferrin saturation was 14% in 08/2019 -Was given Epogen on 09/30 by nephrology (9) Leg wound, right: Previously seeping, wound culture growing Pseudomonas aeruginosa- pansensitive Now appears much improved Consulted wound care - RLE - apply optifoam, change QOD and prn and follow up with wound clinic Completed Allie for total 10-day course (10) Chronic kidney disease, stage IV (severe): BUN increasing suspect due to steroid use. Creatinine mildly trending upwards but around her baseline (11) Sleep apnea: Continue CPAP with 2L NC at night (12) Hypertension: Blood pressures acceptable -Continue hydralazine and carvedilol as well as torsemide Added Imdur at 30 mg as patient's blood pressures have been running 160s-180s systolically. She is not symptomatic but given her recent NSTEMI, will try to get better control over her blood pressures here. May need to be further titrated with her pcp (13) Gout: with acute flare in ankles here Now significantly improved with 1 dose of colchicine and starting prednisone 20 mg daily In fact, she has been able to ambulate more since starting prednisone than she has for many weeks and feels excellent She is interested in tapering down the prednisone and staying on a low-dose like prednisone 5 mg once daily for comfort. She is aware of long-term risks associa sondra with prednisone but would like to stay on it after discharge. I feel this is reasonable given that she is going home to a palliative setting. -Continue tapering course of prednisone 10 mg daily x2 days on Wednesday and Wednesday and then down to 5 mg daily chronically (14) DVT prophylaxis: heparin SQ Dispo: Patient is medically stable for discharge pending caregivers in place at home. Hospital bed delivered but caregivers not yet organized. Not going home on hospice but planning on referral to [facility] palliative care on discharge. Admission and Anticipated Discharge Date Admission Date: September 26, 2019 Subjective No acute concerns or questions. Leg swelling at baseline. No worsening shortness of breath. Owen catheter remains in place. Patient is awaiting placement. Review of Systems Review of Systems: All systems reviewed & are unremarkable except as noted in HPI & below Physical Exam Constitutional: well developed and + obese; no acute distress Eyes: + anicteric sclerae; normal pupil size ENMT: external ear and nose normal, oropharynx normal Neck: trachea midline, no thyromegaly normal visual inspection Respiratory: normal respiratory effort, lungs clear to auscultation normal respiratory effort; no labored breathing Auscultation: + diminished lung francisco nds (At the bases bilaterally); no crackles, no rhonchi and no wheezes Cardiovascular: Rate/Rhythm: regular rate and regular rhythm Heart Sounds: + murmur (BARBARA RUSB) Vessels: + JVD Extremities: + edema (+ pitting edema to the knees bilaterally) Gastrointestinal (Abdomen): normal bowel sounds, soft, nontender, no hepatosplenomegaly Inspection/Auscultation: normal bowel sounds Percussion/Palpation: abdomen soft; abdomen nontender, no guarding and abdomen not rigid Musculoskeletal: Extremities: + chronic stasis changes (b/l LE) Skin: + ulcer (anterior R puri with clear serous drainage) and + wound (Right distal anterior leg wound with OPTi foam in place) Venous stasis changes with scaling of skin on bilateral lower extremities Neurologic: moves all extremities and awake; not confused Psychiatric: A+Ox3, euthymic affect Orientation: alert, oriented x 3 and cooperative Speech: normal rate/rhythm/volume of speech Affect: + flat affect Genitourinary: Owen catheter in place Lymphatic: no lymphedema Results & Data Results & Data ([facility]) Vital Signs (Past 12 Hours) Vital Signs Temp Pulse Resp BP BP Pulse Ox 10/06/19 15:22 36.4 C L 56 L 20 138/52 L 95 10/06/19 07:52 36.5 C 56 L 18 111/64 96 PG Care Time/CCT Total # of Minutes Spent Total Time Spent with Patient: Total time spent is greater than 50% in coordination of care (as documented) at patient's floor/unit and/or counseling patient: Coding Level of Care Code 55094 Subseq Hosp Care Lvl 1 Diagnoses Fever R50.9 Pneumonia J18.9 Urinary tract infection N39.0 Hematuria presence: without hematuria Urinary tract infection type: site unspecified Chronic diastolic CHF (congestive heart failure) I50.32 Pulmonary edema J81.0 Chronicity: acute CAD (coronary artery disease), [place] coronary artery I25.10 Diarrhea R19.7 Anemia of chronic disease D63.8 Leg wound, right S81.801A Chronic kidney disease, stage IV (severe) N18.4 Sleep apnea G47.30 Hypertension I10 Gout M10.9 DVT prophylaxis Z29.9 (1) Urinary tract infection Hematuria presence: without hematuria Urinary tract infection type: site unspecified Qualified Code(s): N39.0 - Urinary tract infection, site not specified (2) Pulmonary edema Chronicity: acute Qualified Code(s): J81.0 - Acute pulmonary edema
[2019-10-06] MEDS: ATORVASTATIN 40 MG TAB PO SCH (20:22)
[2019-10-07] MEDS: HEPARIN SOD 5,000 UNIT/0.5 ML VIAL SQ SCH ×3 (06:26→22:19)
[2019-10-07] MEDS: carvediloL 25 MG TAB PO SCH ×2 (08:47→20:27)
[2019-10-07] MEDS: HydrALAZINE TAB 50 MG TAB PO SCH ×2 (08:47→13:24)
[2019-10-07] MEDS: ASPIRIN 81 MG ECTAB PO SCH (08:48)
[2019-10-07] MEDS: TORSEMIDE 10 MG TAB PO SCH (08:48)
[2019-10-07] MEDS: CLOPIDOGREL BISULFATE 75 MG TAB PO SCH (08:49)
[2019-10-07] MEDS: predniSONE 10 MG TABLET PO SCH (08:49)
[2019-10-07] MEDS: ISOSORBIDE MONO EXTENDED REL 30 MG TABCR PO SCH (08:49)
[2019-10-07] MEDS: SACCHAROMYCES BOULARDII 250 MG CAP PO SCH (08:49)
--- NOTE | 2019-10-07 17:27 | Hospitalist Progress Note ---
Date of Service October 07, 2019 Assessment & Plan (1) Fever: Presented with fever initially thought to be due to her pneumonia and urinary tract infection This had resolved then for 6 days and returned again on the morning of 10/01 Fevers are now resolved since 10/02. Urine culture is growing Yeast/not Sheba albicans, and she does have a Owen catheter in place, however I do not think this is the source of her fever as she improved without any treatment for a funguria CBC without leukocytosis, procalcitonin previously elevated and then down to 0.7 even in the setting of renal failure Chest x-ray with bibasilar infiltrates which could be atelectasis She has no other signs or symptoms of ongoing infection and her leg wounds look improved from previous -Suspect fever on 10/01 was from atelectasis which is now resolved with getting out of bed to chair and using incentive spirometry -blood cultures remain no growth to date x24 hours-since discontinued the IV cefepime -She is now completed a 10-day course of first Zosyn and then Levaquin for Pseudomonas leg wound -Follow blood cultures -Encouraged continued incentive spirometer and getting out of bed which she continues to do daily (2) Pneumonia: - CXR demonstrated b/l pleural effusion and possible bibasilar infiltrates again on repeat chest x-ray 10/01 - CXR may be more reflective of CHF rather than a pneumonia, but again had fevers as above and therefore cefepime was added empirically for 48 hours - previous concerns for aspiration events on previous admissions; recently in [facility], increasing potential for hospital acquired pneumonia -Procalcitonin was elevated but is now improved but mildly elevated at 0.7-may have been due false elevation due to to renal failure -Completed a course of Zosyn and then Levaquin to cover for previous UTI and skin but no longer needed for gram-negative pneumonia coverage - Speech Language Pathology consulted, appreciate recommendations - Blood culture x2 ngtd and blood cultures were redrawn again remain with no growth to date (3) Urinary tract infection: No complaints of dysuria Urine culture growing E.Coli upon admission as well as lactobacillus-completed a 10-day course of Zosyn and then Levaquin Repeat UA on 10/01 shows a lot more epithelial cells and WBCs and is likely contaminated, with yeast not Sheba albicans on urine culture-likely contaminant and no need to treat Owen catheter remains in place-we will leave in place again at her request but will discontinue prior to discharge (4) Chronic diastolic CHF (congestive heart failure): With acute on chronic diastolic CHF on admission - CXR demonstrated concern for congestive heart failure on admission, patient up 13kgs from last admission - BNP 63170 - Lasix given x 2 days and then back to home torsemide per nephrology rec -Much improved symptomatically, although is clearly hypervolemic on examination and her weight is not changed really since admission - continue to track I/O, daily weights- - Troponin 0.144 on admission, this is down from recent hospitalizations, no chest pain -Increase diuretics as needed for symptoms of volume overload (5) Pulmonary edema: As above (6) CAD (coronary artery disease), [place] coronary artery: No acute issues - continue home aspirin, carvedilol, atorvastatin, Plavix, isosorbide, and Hydralazine (7) Diarrhea: Resolved Continue probiotics (8) Anemia of chronic disease: stable with hemoglobin 8.9, normocytic Transferrin saturation was 14% in 08/2019 -Was given Epogen on 09/30 by nephrology (9) Leg wound, right: Previously seeping, wound culture growing Pseudomonas aeruginosa- pansensitive Now appears much improved Consulted wound care - RLE - apply optifoam, change QOD and prn and follow up with wound clinic Completed Allie for total 10-day course (10) Chronic kidney disease, stage IV (severe): BUN increasing suspect due to steroid use. Creatinine mildly trending upwards but around her baseline (11) Sleep apnea: Continue CPAP with 2L NC at night (12) Hypertension: Blood pressures acceptable -Continue hydralazine and carvedilol as well as torsemide Added Imdur at 30 mg as patient's blood pressures have been running 160s-180s systolically. She is not symptomatic but given her recent NSTEMI, will try to get better control over her blood pressures here. May need to be further titrated with her pcp (13) Gout: with acute flare in ankles here Now significantly improved with 1 dose of colchicine and starting prednisone 20 mg daily In fact, she has been able to ambulate more since starting prednisone than she has for many weeks and feels excellent She is interested in tapering down the prednisone and staying on a low-dose like prednisone 5 mg once daily for comfort. She is aware of long-term risks associa sondra with prednisone but would like to stay on it after discharge. I feel this is reasonable given that she is going home to a palliative setting. -Continue tapering course of prednisone 10 mg daily x2 days on Wednesday and Wednesday and then down to 5 mg daily chronically (14) DVT prophylaxis: heparin SQ Dispo: Patient is medically stable for discharge pending caregivers in place at home. Hospital bed delivered but caregivers not yet organized. Not going home on hospice but planning on referral to [facility] palliative care on discharge. Admission and Anticipated Discharge Date Admission Date: September 26, 2019 Subjective Feeling very well today. Denies any complaints. Review of Systems Review of Systems: All systems reviewed & are unremarkable except as noted in HPI & below Physical Exam Constitutional: WD/WN, vitals as above + obese Eyes: + anicteric sclerae Neck: trachea midline, no thyromegaly Respiratory: normal respiratory effort; no labored breathing Cardiovascular: Rate/Rhythm: regular rate and regular rhythm Extremities: + edema (2+ pitting woody edema of the legs to the knees bilaterally, bilateral upper extremities and hands with resolved edema) Gastrointestinal (Abdomen): normal bowel sounds, soft, nontender, no hepatosplenomegaly Musculoskeletal: Extremities: no cyanosis and no clubbing Skin: + wound (Right distal anterior leg wound with OPTi foam in place) Neurologic: moves all extremities and awake; no focal motor deficits Psychiatric: A+Ox3, euthymic affect Orientation: cooperative Speech: normal rate/rhythm/volume of speech Results & Data Results & Data ([facility]) Vital Signs (Past 12 Hours) Vital Signs Temp Pulse Resp BP BP Pulse Ox 10/07/19 15:26 36.5 C 55 L 17 144/76 H 97 10/07/19 08:09 36.5 C 62 18 132/54 L 95 PG Care Time/CCT Total # of Minutes Spent Total Time Spent with Patient: Total time spent is greater than 50% in coordination of care (as documented) at patient's floor/unit and/or counseling patient: Coding Level of Care Code 93957 Subseq Hosp Care Lvl 1 Diagnoses Fever R50.9 Pneumonia J18.9 Urinary tract infection N39.0 Hematuria presence: without hematuria Urinary tract infection type: site unspecified Chronic diastolic CHF (congestive heart failure) I50.32 Pulmonary edema J81.0 Chronicity: acute CAD (coronary artery disease), [place] coronary artery I25.10 Diarrhea R19.7 Anemia of chronic disease D63.8 Leg wound, right S81.801A Chronic kidney disease, stage IV (severe) N18.4 Sleep apnea G47.30 Hypertension I10 Gout M10.9 DVT prophylaxis Z29.9 (1) Urinary tract infection Hematuria presence: without hematuria Urinary tract infection type: site unspecified Qualified Code(s): N39.0 - Urinary tract infection, site not specified (2) Pulmonary edema Chronicity: acute Qualified Code(s): J81.0 - Acute pulmonary edema
[2019-10-07] MEDS: ATORVASTATIN 40 MG TAB PO SCH (20:27)
[2019-10-08] MEDS: HEPARIN SOD 5,000 UNIT/0.5 ML VIAL SQ SCH ×3 (05:50→22:24)
[2019-10-08 06:40] LABS: BUN Creatinine Ratio 25.8 (10-20); Calcium 7.7 mg/dl (8.5-10.1); Creatinine Clr Calc Pharmacy 14.6 ml/min; Est GFR (African American) 13.6; Est GFR (Non-African American) 11.7; Potassium 5.4 mmol/L (3.5-5.1)
[2019-10-08] MEDS: TORSEMIDE 10 MG TAB PO SCH (09:15)
[2019-10-08] MEDS: carvediloL 25 MG TAB PO SCH ×2 (09:15→22:22)
[2019-10-08] MEDS: predniSONE 10 MG TABLET PO SCH (09:15)
[2019-10-08] MEDS: ASPIRIN 81 MG ECTAB PO SCH (09:16)
[2019-10-08] MEDS: SACCHAROMYCES BOULARDII 250 MG CAP PO SCH (09:16)
[2019-10-08] MEDS: CLOPIDOGREL BISULFATE 75 MG TAB PO SCH (09:16)
[2019-10-08] MEDS: HydrALAZINE TAB 50 MG TAB PO SCH ×3 (09:16→22:22)
[2019-10-08] MEDS: ISOSORBIDE MONO EXTENDED REL 30 MG TABCR PO SCH (09:16)
--- NOTE | 2019-10-08 16:19 | Hospitalist Progress Note ---
Date of Service October 08, 2019 Assessment & Plan (1) Fever: Presented with fever initially thought to be due to her pneumonia and urinary tract infection This had resolved then for 6 days and returned again on the morning of 10/01 Fevers are now resolved since 10/02. Urine culture is growing Yeast/not Sheba albicans, and she does have a Owen catheter in place, however I do not think this is the source of her fever as she improved without any treatment for a funguria CBC without leukocytosis, procalcitonin previously elevated and then down to 0.7 even in the setting of renal failure Chest x-ray with bibasilar infiltrates which could be atelectasis She has no other signs or symptoms of ongoing infection and her leg wounds look improved from previous -Suspect fever on 10/01 was from atelectasis which is now resolved with getting out of bed to chair and using incentive spirometry -blood cultures remain no growth to date-have since discontinued the IV cefepime -She is now completed a 10-day course abx including Zosyn and then Levaquin for Pseudomonas leg wound -Encouraged continued incentive spirometer and getting out of bed which she continues to do daily (2) Pneumonia: - CXR on admission demonstrated b/l pleural effusion and possible bibasilar infiltrates again on repeat chest x-ray 10/01 - CXR may be more reflective of CHF rather than a pneumonia, but again had fevers as above and therefore cefepime was added empirically for 48 hours 10/01- 10/03 - previous concerns for aspiration events on previous admissions; recently in [facility], increasing potential for hospital acquired pneumonia -Procalcitonin was elevated but is now improved but mildly elevated at 0.7-may have been due false elevation due to to renal failure -Completed a course of Zosyn and then Levaquin - Speech Language Pathology consulted, appreciate recommendations - Blood culture x2 ngtd and repeat blood cultures no growth to date (3) Urinary tract infection: No complaints of dysuria Urine culture growing E.Coli upon admission as well as lactobacillus-completed a 10-day course of Zosyn and then Levaquin Repeat UA on 10/01 shows a lot more epithelial cells and WBCs and is likely contaminated, with yeast not Sheba albicans on urine culture-likely contaminant and no need to treat Owen catheter remains in place-we will leave in place again at her request but will discontinue prior to discharge (4) Chronic diastolic CHF (congestive heart failure): With acute on chronic diastolic CHF on admission - CXR demonstrated concern for congestive heart failure on admission, patient up 13kgs from last admission - BNP 39984 - Lasix was given x 2 days and then back to home torsemide per nephrology rec -Much improved symptomatically, although is clearly hypervolemic on examination and her weight is now trending way up again, has been on prednisone now for a few days - continue to track I/O, daily weights- - Troponin 0.144 on admission, this is down from recent hospitalizations, no chest pain -Increase diuretics as needed for symptoms of volume overload--> will give an extra dose of torsemide 5mg po x 1 now (5) Pulmonary edema: As above (6) CAD (coronary artery disease), [place] coronary artery: No acute issues - continue home aspirin, carvedilol, atorvastatin, Plavix, isosorbide, and Hydralazine (7) Diarrhea: Was resolved, but now returned today x 2 Continue probiotics -pt thinks from too much fruit and will avoid fruit -follow and check for C. diff if >3 stools/24 hrs (8) Anemia of chronic disease: stable with hemoglobin 8.9, normocytic Transferrin saturation was 14% in 08/2019 -Was given Epogen on 09/30 by nephrology (9) Leg wound, right: Previously seeping, wound culture growing Pseudomonas aeruginosa- pansensitive Now appears much improved Consulted wound care - RLE - apply optifoam, change QOD and prn and follow up with wound clinic Completed Carlitosaquin for total 10-day course (10) Chronic kidney disease, stage IV (severe): BUN increasing suspect due to steroid use. Creatinine trended back downward today to 3.4 K+ up slightly follow BMP (11) Sleep apnea: Continue CPAP with 2L NC at night (12) Hypertension: Blood pressures acceptable -Continue hydralazine and carvedilol as well as torsemide Added Imdur at 30 mg as patient's blood pressures were running 160s-180s systolically (13) Gout: with acute flare in ankles here Now significantly improved with 1 dose of colchicine and starting prednisone 20 mg daily In fact, she has been able to ambulate more since starting prednisone than she has for many weeks and feels excellent She is interested in tapering down the prednisone and staying on a low-dose like prednisone 5 mg once daily for comfort. She is aware of long-term risks associated with prednisone but would like to stay on it after discharge. I feel this is reasonable given that she is going home to a palliative setting. -Continue tapering course of prednisone 10 mg daily x2 days on Wednesday and Wednesday and then down to 5 mg daily chronically on Wednesday (14) Hyperkalemia: K+ mildly elevated today at 5.4 -give extra dose torsemide as above for increasing weight and fluid retention which will also help with K+ -changed diet to low K+ diet follow BMP in AM (15) DVT prophylaxis: heparin SQ Dispo: Patient is medically stable for discharge pending caregivers in place at home. Hospital bed delivered but caregivers not yet organized. Not going home on hospice but planning on referral to [facility] palliative care on discharge. Admission and Anticipated Discharge Date Admission Date: September 26, 2019 Anticipated date of discharge: 10/09/19 Subjective Pt had 2 loose stools today, one was almost uncontrollable but she made it to the restroom. SHe thinks it was almost certainly from eating too much fruit, specifically blueberries yesterday. Denies CP/SOB, no abd pain or nausea. Review of Systems Review of Systems: All systems reviewed & are unremarkable except as noted in HPI & below Physical Exam Constitutional: WD/WN, vitals as above Eyes: + anicteric sclerae Neck: trachea midline, no thyromegaly Respiratory: normal respiratory effort; no labored breathing Auscultation: no crackles, no rhonchi and no wheezes Cardiovascular: Rate/Rhythm: regular rate and regular rhythm Extremities: + edema (2+ pitting woody edema of the legs to the knees bilaterally, bilateral upper extremities and hands with resolved edema) Gastrointestinal (Abdomen): normal bowel sounds, soft, nontender, no hepatosplenomegaly Musculoskeletal: Extremities: no cyanosis and no clubbing Skin: + wound (Right distal anterior leg wound with OPTi foam in place) Neurologic: moves all extremities and awake; no focal motor deficits Psychiatric: A+Ox3, euthymic affect Orientation: cooperative Genitourinary: Owen in place draining clear, yellow urine Lymphatic: no lymphedema Results & Data Results & Data ([facility]) Vital Signs (Past 12 Hours) Vital Signs Temp Pulse Resp BP BP Pulse Ox 10/08/19 15:32 36.4 C L 53 L 16 134/64 96 10/08/19 07:15 36.4 C L 60 18 130/61 96 10/08/19 05:49 157/64 H Laboratory Results 10/08/19 Range/Units 04:49 Sodium 140 (136-145) mmol/L Potassium 5.4 H (3.5-5.1) mmol/L Chloride 111 H (98-107) mmol/L Carbon Dioxide 22 (21-32) mmol/L Anion Gap 7.0 (3-11) BUN 88 H (7-18) mg/dl Creatinine 3.41 H (0.6-1.2) mg/dl Est Cr Clr Drug Dosing 14.6 ml/min Est GFR ( Amer) 13.6 Est GFR (Non-Af Amer) 11.7 BUN/Creatinine Ratio 25.8 H (10-20) Glucose 108 H (70-99) mg/dl Calcium 7.7 L (8.5-10.1) mg/dl PG Care Time/CCT Total # of Minutes Spent Total Time Spent with Patient: Total time spent is greater than 50% in coordination of care (as documented) at patient's floor/unit and/or counseling patient: Coding Level of Care Code 01410 Subseq Hosp Care Lvl 2 Diagnoses Fever R50.9 Pneumonia J18.9 Urinary tract infection N39.0 Hematuria presence: without hematuria Urinary tract infection type: site unspecified Chronic diastolic CHF (congestive heart failure) I50.32 Pulmonary edema J81.0 Chronicity: acute CAD (coronary artery disease), [place] coronary artery I25.10 Diarrhea R19.7 Anemia of chronic disease D63.8 Leg wound, right S81.801A Chronic kidney disease, stage IV (severe) N18.4 Sleep apnea G47.30 Hypertension I10 Gout M10.9 Hyperkalemia E87.5 DVT prophylaxis Z29.9 (1) Urinary tract infection Hematuria presence: without hematuria Urinary tract infection type: site unspecified Qualified Code(s): N39.0 - Urinary tract infection, site not specified (2) Pulmonary edema Chronicity: acute Qualified Code(s): J81.0 - Acute pulmonary edema
[2019-10-08] MEDS ORDERED: TORSEMIDE 10 MG TAB PO ONE (16:20)
[2019-10-08] MEDS: ATORVASTATIN 40 MG TAB PO SCH (22:23)
[2019-10-09 05:35] LABS: Basophils # (auto) 0.01 K/uL (0-0.2); Basophils % (auto) 0.1 %; Eosinophils % (auto) 1.3 %; Hemoglobin 8.5 g/dL (12.0-16.0); Immature Granulocytes # (auto) 0.34 K/uL (0.00-0.02); Immature Granulocytes % (auto) 4.6 %; Lymphocytes # (auto) 2.32 K/uL (1.2-3.4); Lymphocytes % (auto) 31.2 %; Mean Corpuscular Hemoglobin 30.2 pg (25-34); Mean Corpuscular Hgb Conc 31.5 g/dL (32-36); Mean Corpuscular Volume 96.1 fL (80-100); Mean Platelet Volume 10.2 fL (7.4-10.4); Monocytes # (auto) 0.57 K/uL (0.11-0.59); Monocytes % (auto) 7.7 %; Neutrophils % (auto) 55.1 %; Platelet Count 234 K/uL (130-400); RDW Coefficient of Variation 16.7 % (11.5-14.5); RDW Standard Deviation 59.2 fL (36.4-46.3); Red Blood Count 2.81 M/uL (4.2-5.4); White Blood Count 7.44 K/uL (4.8-10.8)
[2019-10-09] MEDS: HEPARIN SOD 5,000 UNIT/0.5 ML VIAL SQ SCH ×3 (05:45→21:34)
[2019-10-09 06:03] LABS: BUN Creatinine Ratio 28.4 (10-20); Calcium 7.5 mg/dl (8.5-10.1); Creatinine Clr Calc Pharmacy 15.5 ml/min; Est GFR (African American) 14.6; Est GFR (Non-African American) 12.6; Potassium 5.3 mmol/L (3.5-5.1)
[2019-10-09] MEDS ORDERED: FUROSEMIDE 40 MG in SYRINGE 0 ML IV ONE (08:30)
[2019-10-09] MEDS: SACCHAROMYCES BOULARDII 250 MG CAP PO SCH (09:05)
[2019-10-09] MEDS: predniSONE 5 MG TAB PO SCH (09:05)
[2019-10-09] MEDS: CLOPIDOGREL BISULFATE 75 MG TAB PO SCH (09:05)
[2019-10-09] MEDS: carvediloL 25 MG TAB PO SCH ×2 (09:05→21:32)
[2019-10-09] MEDS: ISOSORBIDE MONO EXTENDED REL 30 MG TABCR PO SCH (09:05)
[2019-10-09] MEDS: HydrALAZINE TAB 50 MG TAB PO SCH ×3 (09:05→21:32)
[2019-10-09] MEDS: ASPIRIN 81 MG ECTAB PO SCH (09:05)
--- NOTE | 2019-10-09 13:31 | Palliative Care Progress Note ---
Date of Service October 09, 2019 Subjective Goals addressed, POC in place - will sign off - please re-consult if condition changes Results & Data Vital Signs (Past 12 Hours) Vital Signs Temp Pulse Resp BP Pulse Ox 10/09/19 06:18 97.9 F 60 16 120/66 97 PG Care Time/CCT Total # of Minutes Spent Total Time Spent with Patient: Total time spent is greater than 50% in coordination of care (as documented) at patient's floor/unit and/or counseling patient: Coding Level of Care Code None
--- NOTE | 2019-10-09 13:33 | Hospitalist Progress Note ---
Date of Service October 09, 2019 Assessment & Plan (1) Fever: Presented with fever initially thought to be due to her pneumonia and urinary tract infection This had resolved then for 6 days and returned again on the morning of 10/01 Fevers are now resolved since 10/02. Urine culture is growing Yeast/not Sheba albicans, and she does have a Owen catheter in place, however I do not think this is the source of her fever as she improved without any treatment for a funguria CBC without leukocytosis, procalcitonin previously elevated and then down to 0.7 even in the setting of renal failure Chest x-ray with bibasilar infiltrates which could be atelectasis She has no other signs or symptoms of ongoing infection and her leg wounds look improved from previous -Suspect fever on 10/01 was from atelectasis which is now resolved with getting out of bed to chair and using incentive spirometry -blood cultures remain no growth to date-have since discontinued the IV cefepime -She is now completed a 10-day course abx including Zosyn and then Levaquin for Pseudomonas leg wound -Encouraged continued incentive spirometer and getting out of bed which she continues to do daily (2) Pneumonia: - CXR on admission demonstrated b/l pleural effusion and possible bibasilar infiltrates again on repeat chest x-ray 10/01 - CXR may be more reflective of CHF rather than a pneumonia, but again had fevers as above and therefore cefepime was added empirically for 48 hours 10/01- 10/03 - previous concerns for aspiration events on previous admissions; recently in [facility], increasing potential for hospital acquired pneumonia -Procalcitonin was elevated but is now improved but mildly elevated at 0.7-may have been due false elevation due to to renal failure -Completed a course of Zosyn and then Levaquin - Speech Language Pathology consulted, appreciate recommendations - Blood culture x2 ngtd and repeat blood cultures no growth to date (3) Urinary tract infection: No complaints of dysuria Urine culture growing E.Coli upon admission as well as lactobacillus-completed a 10-day course of Zosyn and then Levaquin Repeat UA on 10/01 shows a lot more epithelial cells and WBCs and is likely contaminated, with yeast not Sheba albicans on urine culture-likely contaminant and no need to treat Owen catheter remains in place-we will leave in place again at her request but will discontinue prior to discharge (4) Chronic diastolic CHF (congestive heart failure): With acute on chronic diastolic CHF on admission - CXR demonstrated concern for congestive heart failure on admission, patient up 13kgs from last admission - BNP 36612 - Lasix was given x 2 days and then back to home torsemide per nephrology rec -Much improved symptomatically, although is clearly hypervolemic on examination and her weight is now trending way up again, has been on prednisone now for a few days - continue to track I/O, daily weights- - Troponin 0.144 on admission, this is down from recent hospitalizations, no chest pain -Increase diuretics as needed for symptoms of volume overload--> given 1 extra dose of 5 mg torsemide last night. Continues to be hyperkalemic with increasing weights though it does appear she diuresed fairly well last night with extra torsemide. Will give 40 mg IV furosemide x1 this morning, hold today's torsemide and recheck prp tomorrow am (5) Pulmonary edema: As above (6) CAD (coronary artery disease), [place] coronary artery: No acute issues - continue home aspirin, carvedilol, atorvastatin, Plavix, isosorbide, and Hydralazine (7) Diarrhea: Loose stools but only 1 or 2 per day Continue probiotics -pt thinks from too much fruit and will avoid fruit -follow and check for C. diff if >3 stools/24 hrs (8) Anemia of chronic disease: stable with hemoglobin 8.9, normocytic Transferrin saturation was 14% in 08/2019 -Was given Epogen on 09/30 by nephrology (9) Leg wound, right: Previously seeping, wound culture growing Pseudomonas aeruginosa- pansensitive Now appears much improved Consulted wound care - RLE - apply optifoam, change QOD and prn and follow up with wound clinic Completed Levaquin for total 10-day course (10) Chronic kidney disease, stage IV (severe): BUN increasing suspect due to steroid use. Creatinine trended back downward K+ up slightly follow BMP (11) Sleep apnea: Continue CPAP with 2L NC at night (12) Hypertension: Blood pressures acceptable -Continue hydralazine and carvedilol as well as torsemide Added Imdur at 30 mg as patient's blood pressures were running 160s-180s systolically (13) Gout: with acute flare in ankles here Now significantly improved with 1 dose of colchicine and starting prednisone 20 mg daily In fact, she has been able to ambulate more since starting prednisone than she has for many weeks and feels excellent She is interested in tapering down the prednisone and staying on a low-dose like prednisone 5 mg once daily for comfort. She is aware of long-term risks associated with prednisone but would like to stay on it after discharge. I feel this is reasonable given that she is going home to a palliative setting. -Continue tapering course of prednisone 10 mg daily x2 days on Wednesday and and then down to 5 mg daily chronically on Wednesday (14) Hyperkalemia: K+ mildly elevated today at 5.4 -give extra dose torsemide as above for increasing weight and fluid retention which will also help with K+ -changed diet to low K+ diet follow BMP in AM (15) DVT prophylaxis: heparin SQ Dispo: If labs ok in the morning, can dc tomorrow, caregivers will be able to start care tomorrow. Admission and Anticipated Discharge Date Admission Date: September 26, 2019 Subjective Ms. Watson feels well, no complaints ROS Constitutional: no chills, aches, sweats or fever Respiratory: no sob,cough, sputum, or wheezing Cardiac: no chest pain, palpitations, edema, orthopnea or lightheadedness GI: no abdominal pain, nausea, vomiting, diarrhea or constipation : no dysuria or hesitancy Extremities: no joint pain or weakness Skin: no rash All other systems reviewed and negative Physical Exam Physical Exam: General: no distress Eyes: normal inspection, PERLL Respiratory: chest non tender, clear to auscultation, normal breath sounds, no respiratory distress, no accessory muscle use Cardiac: regular rate and rhythm, no rub or gallop, systolic murmur, bilateral lower extremity edema, no jvd GI/: active bowel sounds, no abd pain or tenderness, soft, non distended Extremities: normal range of motion, normal strength, non tender Neuro/Psych: alert and oriented x 3, normal mood and affect Skin: normal color, dry Results & Data Results & Data ([facility]) Vital Signs (Past 12 Hours) Vital Signs Temp Pulse Resp BP Pulse Ox 10/09/19 06:18 36.6 C 60 16 120/66 97 PG Care Time/CCT Total # of Minutes Spent Total Time Spent with Patient: Total time spent is greater than 50% in coordination of care (as documented) at patient's floor/unit and/or counseling patient: Coding Level of Care Code 48699 Subseq Hosp Care Lvl 3 Diagnoses Fever R50.9 Pneumonia J18.9 Urinary tract infection N39.0 Hematuria presence: without hematuria Urinary tract infection type: site unspecified Chronic diastolic CHF (congestive heart failure) I50.32 Pulmonary edema J81.0 Chronicity: acute CAD (coronary artery disease), [place] coronary artery I25.10 Diarrhea R19.7 Anemia of chronic disease D63.8 Leg wound, right S81.801A Chronic kidney disease, stage IV (severe) N18.4 Sleep apnea G47.30 Hypertension I10 Gout M10.9 Hyperkalemia E87.5 DVT prophylaxis Z29.9 (1) Urinary tract infection Hematuria presence: without hematuria Urinary tract infection type: site unspecified Qualified Code(s): N39.0 - Urinary tract infection, site not specified (2) Pulmonary edema Chronicity: acute Qualified Code(s): J81.0 - Acute pulmonary edema
[2019-10-09] MEDS: ATORVASTATIN 40 MG TAB PO SCH (21:32)
[2019-10-10 06:33] LABS: Basophils # (auto) 0.01 K/uL (0-0.2); Basophils % (auto) 0.1 %; Eosinophils % (auto) 1.5 %; Hematocrit (blood only) 29.8 % (37-47); Hemoglobin 8.8 g/dL (12.0-16.0); Immature Granulocytes # (auto) 0.32 K/uL (0.00-0.02); Immature Granulocytes % (auto) 4.7 %; Lymphocytes # (auto) 1.93 K/uL (1.2-3.4); Lymphocytes % (auto) 28.3 %; Mean Corpuscular Hemoglobin 28.5 pg (25-34); Mean Corpuscular Hgb Conc 29.5 g/dL (32-36); Mean Corpuscular Volume 96.4 fL (80-100); Mean Platelet Volume 10.1 fL (7.4-10.4); Monocytes # (auto) 0.64 K/uL (0.11-0.59); Monocytes % (auto) 9.4 %; Neutrophils # (auto) 3.81 K/uL (1.4-6.5); Platelet Count 231 K/uL (130-400); RDW Coefficient of Variation 16.9 % (11.5-14.5); RDW Standard Deviation 59.9 fL (36.4-46.3); Red Blood Count 3.09 M/uL (4.2-5.4); White Blood Count 6.81 K/uL (4.8-10.8)
[2019-10-10] MEDS: HEPARIN SOD 5,000 UNIT/0.5 ML VIAL SQ SCH ×2 (06:44→13:19)
[2019-10-10 07:04] LABS: BUN Creatinine Ratio 30.9 (10-20); Calcium 7.9 mg/dl (8.5-10.1); Est GFR (African American) 15.1; Est GFR (Non-African American) 13.1; Potassium 4.9 mmol/L (3.5-5.1)
[2019-10-10 07:07] LABS: Albumin Globulin Ratio 0.6 (0.9-2); Bilirubin,Total 0.3 mg/dl (0.2-1); Globulin 3.1 gm/dl (2.5-4.0); Total Protein 5.1 gm/dl (6.4-8.2)
[2019-10-10] MEDS: SACCHAROMYCES BOULARDII 250 MG CAP PO SCH (09:28)
[2019-10-10] MEDS: CLOPIDOGREL BISULFATE 75 MG TAB PO SCH (09:28)
[2019-10-10] MEDS: predniSONE 5 MG TAB PO SCH (09:28)
[2019-10-10] MEDS: ISOSORBIDE MONO EXTENDED REL 30 MG TABCR PO SCH (09:28)
[2019-10-10] MEDS: TORSEMIDE 10 MG TAB PO SCH (09:28)
[2019-10-10] MEDS: ASPIRIN 81 MG ECTAB PO SCH (09:28)
[2019-10-10] MEDS: carvediloL 25 MG TAB PO SCH (09:29)
[2019-10-10] MEDS: HydrALAZINE TAB 50 MG TAB PO SCH ×2 (09:29→13:18)
--- NOTE | 2019-10-10 11:43 | Discharge Summary ---
Date of Service October 10, 2019 Admission HPI Per Admitting Provider Judi Watson is a 84y/o F w/ PMH significant for CAD, LBBB, HTN, CKD Stage IV, chronic diastolic CHF, GURPREET on CPAP and nocturnal O2, chronic lower extremity edema/venous stasis, gout, anemia, complex renal cysts, OA, and vitamin D deficiency. Who presented to the Emergency Department following, continued nausea and gargling while being seen by home health agency at home, as well as a seeping wound over her right leg. At that time her temperature was 101.5F, and with recent hospitalization and recent discharge from [facility], they were concerned that she either had a wound infection or a pneumonia. On presentation to the ED, she remained febrile with chills, but denied cough, nausea, vomiting, shortness of breath, chest pain/discomfort, abdominal pain, changes in bowel or bladder function, increased upper or lower extremity edema. She was recently tested for COVID-19 multiple times over the last week while she was at [facility] and these test all came back negative. Principal Diagnosis Pneumonia, CHF Discharge Exam Constitutional WD/WN, vitals as above Respiratory normal respiratory effort, lungs clear to auscultation Cardiovascular Rate/Rhythm: regular rate and regular rhythm Heart Sounds: + murmur Gastrointestinal (Abdomen) Inspection/Auscultation: abdomen normal to inspection and normal bowel sounds; abdomen not distended Musculoskeletal no cyanosis or clubbing, extremities motor strength 5/5 Skin no rashes, warm and dry healing right leg wound Neurologic moves all extremities and awake Psychiatric A+Ox3, euthymic affect Discharge Data Allergies Allergy/AdvReac Type Severity Reaction Status Date / Time sulfamethoxazole Allergy Intermediate felt like Verified 09/26/19 16:59 walking on eggs trimethoprim Allergy Intermediate felt like Verified 09/26/19 16:59 walking on eggs Bactrim Allergy Unknown felt like Verified 11/04/17 07:47 walking on eggs lisinopril Allergy Unknown UNSURE OF Verified 09/26/19 16:59 REACTION streptomycin Allergy Unknown UNSURE Verified 09/26/19 16:59 REACTION Consultations 09/26/19 20:50 ED Decision to Admit Stat 10/02/19 15:26 Consult Palliative Care Routine 10/03/19 20:47 Consult Case Management - Discharge Planning Routine Hospital Course (1) Fever: Presented with fever initially thought to be due to her pneumonia and urinary tract infection This had resolved then for 6 days and returned again on the morning of 10/01 Fevers are now resolved since 10/02. Urine culture is growing Yeast/not Sheba albicans, and she does have a Owen catheter in place, however I do not think this is the source of her fever as she improved without any treatment for a funguria CBC without leukocytosis, procalcitonin previously elevated and then down to 0.7 even in the setting of renal failure Chest x-ray with bibasilar infiltrates which could be atelectasis She has no other signs or symptoms of ongoing infection and her leg wounds look improved from previous -Suspect fever on 10/01 was from atelectasis which is now resolved with getting out of bed to chair and using incentive spirometry -blood cultures remain no growth to date-have since discontinued the IV cefepime -She is now completed a 10-day course abx including Zosyn and then Levaquin for Pseudomonas leg wound -Encouraged continued incentive spirometer and getting out of bed which she continues to do daily (2) Pneumonia: - CXR on admission demonstrated b/l pleural effusion and possible bibasilar infiltrates again on repeat chest x-ray 10/01 - CXR may be more reflective of CHF rather than a pneumonia, but again had fevers as above and therefore cefepime was added empirically for 48 hours 10/01- 10/03 - previous concerns for aspiration events on previous admissions; recently in [facility], increasing potential for hospital acquired pneumonia -Procalcitonin was elevated but is now improved but mildly elevated at 0.7-may have been due false elevation due to to renal failure -Completed a course of Zosyn and then Levaquin - Speech Language Pathology consulted, appreciate recommendations - regular texture diet, aspiration precautions - Blood culture x2 ngtd and repeat blood cultures no growth to date (3) Urinary tract infection: No complaints of dysuria Urine culture growing E.Coli upon admission as well as lactobacillus-completed a 10-day course of Zosyn and then Levaquin Repeat UA on 10/01 shows a lot more epithelial cells and WBCs and is likely contaminated, with yeast not Sheba albicans on urine culture-likely contamin ant and no need to treat Owen catheter remains in place- per patient's request, will leave in until visited by home health nurses tomorrow and they will discontinue (4) Chronic diastolic CHF (congestive heart failure): With acute on chronic diastolic CHF on admission - CXR demonstrated concern for congestive heart failure on admission, patient was up 13kgs from last admission at this admission - BNP 68141 - Lasix was given x 2 days and then back to home torsemide per nephrology rec -Much improved symptomatically, although is clearly hypervolemic on examination and her weight is way up again, has been on prednisone now for a few days - gave one dose of IV furosemide 10/08 with good response, weight down a kg this morning. Her weight is still up from admission but she feels well, no sob, lungs are clear so I am hesitant to push her kidneys any further to diurese and will resume torsemide at this point - Troponin 0.144 on admission, this is down from recent hospitalizations, no chest pain (5) Pulmonary edema: As above (6) CAD (coronary artery disease), [place] coronary artery: No acute issues - continue home aspirin, carvedilol, atorvastatin, Plavix, isosorbide, and Hydralazine (7) Diarrhea: Loose stools but only 1 or 2 per day Continue probiotics (8) Anemia of chronic disease: stable hemoglobin 8.9 Transferrin saturation was 14% in 08/2019 -Was given Epogen on 09/30 by nephrology (9) Leg wound, right: Previously seeping, wound culture growing Pseudomonas aeruginosa- pansensitive Now appears much improved Consulted wound care - RLE - apply optifoam, change QOD and prn and follow up with wound clinic Completed Levaquin for total 10-day course (10) Chronic kidney disease, stage IV (severe): BUN increasing suspect due to steroid use. Creatinine trended back downward Per discussion with palliative care, patient does not want dialysis Patient to follow up with nephrology (11) Sleep apnea: Continue CPAP with 2L NC at night (12) Hypertension: Blood pressures acceptable -Continue hydralazine and carvedilol, torsemide, imdur (13) Gout: with acute flare in ankles here Now significantly improved with 1 dose of colchicine and starting prednisone 20 mg daily In fact, she has been able to ambulate more since starting prednisone than she has for many weeks and feels excellent She is interested in tapering down the prednisone and staying on a low-dose like prednisone 5 mg once daily for comfort. She is aware of long-term risks associated with prednisone but would like to stay on it after discharge. I feel this is reasonable given that she is going home to a palliative setting. -Continue tapering course of prednisone 10 mg daily x2 days on Wednesday and Wednesday and then down to 5 mg daily chronically on Wednesday (14) Hyperkalemia: K+ mildly elevated, now resolved with increased diuretics -changed diet to low K+ diet (15) DVT prophylaxis: heparin SQ Dispo: home with home health. Referral sent for [facility] palliative care. Total Time Total Time Spent Total Time Spent (In Minutes): greater than 30 minutes Discharge Plan Discharge Items Patient Disposition: Home - Home Health Services Reason For Visit: PNEUMONIA Discharge Diagnosis: Pneumonia Condition on Discharge: Good Activity: Resume your previous activity Non-emergency contact: Primary Care Provider Call non-emergency contact if: you have any medication questions, your symptoms worsen and you have a fever Follow-up/Referrals: Gordy Alvarado MD [Physician] - ( 1- 2 weeks ) Rose Phelps PA-C [Physician Document Control Specialist] - 10/24/19 2:00 pm (Congestive Heart Failure Program Appointment Information Early follow up is essential to managing your heart failure. An appointment has been scheduled for you with the [facility] Heart Failure Program within 7 days of discharge. Anticipate this visit to be 30-60 minutes long. Please expect a dry plasterer helper phone call from one of our nurses approximately 48 hours from discharge. They will also be placing an order for lab work to be completed 1-2 days prior to your heart failure follow up appointment. Please be sure to have this done so we can go over the results when you come in. Office Location The cardiology office building is located in front of the hospital at [address] Bring the following with you to your follow-up doctor appointments: Please bring your daily weight log any discharge paperwork all of your medication bottles with you to this visit. ) Bhavin Prince DO [Primary Care Provider] - (Follow up in one week ) Moises Andino DO [Physician] - (Wound clinic in 1 week ) Diet: Low Potassium (2gm) and Low Sodium (2gm) Addtl Attending Provider Instructions: Pneumonia: You completed a course of Zosyn and then Levaquin for a total of 10 days of antibiotics - Speech Language Pathology recommends that you sit up fully to eat, take single bites with small sips of water and alternate solids and liquids as you eat. Avoid straws Urinary tract infection: You urine culture grew E.Coli upon admission and you completed a 10-day course of Zosyn and then Levaquin - Please have the visiting nurse remove your Owen catheter tomorrow Leg wound, right: Now appears much improved - please have the visiting nurse apply optifoam and change QOD and as needed. We will have you follow up with wound clinic As discussed above, you completed a 10 day course of antibiotics Chronic kidney disease, stage IV (severe): Your creatinine has been stable. - Please continue to eat a low potassium diet as your potassium was elevated over the last couple of days Hypertension: Continue hydralazine and carvedilol as well as torsemide. Please continue your home isosorbide Gout: Continue 5mg daily prednisone. Pending Studies at Discharge: No Stand-Alone Forms: My [facility] [employer], Smoking Cessation Medications and DC Order Prescriptions: New prednisone 5 mg Tablet 5 mg PO DAILY Qty: 30 RF: 1 Saccharomyces boulardii [Florastor] 250 mg Capsule 250 mg PO DAILY Qty: 30 RF: 1 Continued carvedilol 25 mg tablet 25 mg PO BID Qty: 180 RF: 3 isosorbide mononitrate 60 mg tablet extended release 24 hr 60 mg PO QAM Qty: 90 RF: 3 atorvastatin 80 mg tablet 80 mg PO QPM Qty: 90 RF: 3 ergocalciferol (vitamin D2) 1,250 mcg (50,000 unit) capsule 50,000 unit PO MONTHLY Qty: 3 RF: 1 hydralazine 50 mg tablet 100 mg PO TID Qty: 560 RF: 3 (DME) CPAP Supplies Misc See Rx Instructions .ROUTE .MEDSUPPLY Qty: 1 RF: 0 aspirin [Aspir-81] 81 mg Tablet,Delayed Release (Dr/Ec) 81 mg PO QAM RF: 0 clopidogrel 75 mg tablet 75 mg PO QAM RF: 0 torsemide 5 mg tablet 5 mg PO QAM RF: 0 Saccharomyces boulardii [Florastor] 250 mg capsule 250 mg PO QAM RF: 0 Discharge Orders: Discharge Order (Routine); Ordered 10/10/19 Ordered By: Valentina Rothman/Other Patient Handouts: Diet Low Potassium Dc, Saccharomyces boulardii Florastor oral dosage forms, Prednisone tablets Admission Data Admit Date/Time: 09/26/19 21:31 Attending Provider: Dante Hughes Admit Provider: Gerald Hess Primary Care Provider: Bhavin Prince Other Providers: Carlos Alejandro ; [facility],Home [facility] ; [place],[employer] ; [facility] ; [facility] ; [facility] ; Radha Carbajal ; [facility],Home Healthcare Other Interventions: Discharge Summary Assessment (RN) Last Done: 10/10/19 13:42 DC Date/Time DO NOT enter until pt leaves facility: 10/10/19 15:37 Supervising Physician Co-Signing Physician Notes I supervised Valentina Mays NP on this patient's care. I examined the patient today independently of her. I discussed the plan of care with her with the plan being as written in her note except for any following changes/exceptions: None. Doing well today. No major concerns. Ready to go. Coding Level of Care Code D/C Day Management >30 mins Diagnoses Fever R50.9 Pneumonia J18.9 Urinary tract infection N39.0 Hematuria presence: without hematuria Urinary tract infection type: site unspecified Chronic diastolic CHF (congestive heart failure) I50.32 Pulmonary edema J81.0 Chronicity: acute CAD (coronary artery disease), [place] coronary artery I25.10 Diarrhea R19.7 Anemia of chronic disease D63.8 Leg wound, right S81.801A Chronic kidney disease, stage IV (severe) N18.4 Sleep apnea G47.30 Hypertension I10 Gout M10.9 Hyperkalemia E87.5 DVT prophylaxis Z29.9
== END 2019-10-10 15:37 | disposition home health service (06) | DRG 193 ==
LOC: ED 16:33 → SUATTDRO 21:31 → 3E 21:31

== ENCOUNTER 2020-05-02 14:56 | Inpatient (IN) ==
[2020-05-02 15:48] LABS: Basophils # (auto) 0.02 K/uL (0-0.2); Basophils % (auto) 0.4 %; Eosinophils # (auto) 0.49 K/uL (0-0.5); Eosinophils % (auto) 9.8 %; Hematocrit (blood only) 33.8 % (37-47); Hemoglobin 10.2 g/dL (12.0-16.0); Immature Granulocytes # (auto) 0.02 K/uL (0.00-0.02); Immature Granulocytes % (auto) 0.4 %; Lymphocytes % (auto) 35.9 %; Mean Corpuscular Hemoglobin 30.4 pg (25-34); Mean Corpuscular Hgb Conc 30.2 g/dL (32-36); Mean Corpuscular Volume 100.9 fL (80-100); Monocytes # (auto) 0.39 K/uL (0.11-0.59); Monocytes % (auto) 7.8 %; Neutrophils # (auto) 2.29 K/uL (1.4-6.5); Neutrophils % (auto) 45.7 %; Platelet Count 105 K/uL (130-400); RDW Coefficient of Variation 16.1 % (11.5-14.5); RDW Standard Deviation 60.1 fL (36.4-46.3); Red Blood Count 3.35 M/uL (4.2-5.4); White Blood Count 5.01 K/uL (4.8-10.8)
[2020-05-02] MEDS ORDERED: CALCIUM GLUCONATE 10% 1,000 MG in SODIUM CHLORIDE 0.9% 50 ML IV STA (16:05)
[2020-05-02 16:07] LABS: BUN Creatinine Ratio 24.1 (10-20); Calcium 8.7 mg/dl (8.5-10.1); Creatinine Clr Calc Pharmacy 13.6 ml/min; Est GFR (African American) 12.9; Est GFR (Non-African American) 11.1; Potassium 6.3 mmol/L (3.5-5.1)
[2020-05-02] MEDS ORDERED: INSULIN HUMAN REGULAR PER UNIT 5 UNITS in SYRINGE 9.9 ML IV STA (16:18)
[2020-05-02] MEDS ORDERED: DEXTROSE 50% 50 ML SYRINGE IV STA (16:18)
--- NOTE | 2020-05-02 16:41 | Electrocardiogram Report ---
Test Reason : Blood Pressure : / mmHG Vent. Rate : 057 BPM Atrial Rate : 057 BPM P-R Int : 212 ms QRS Dur : 156 ms QT Int : 514 ms P-R-T Axes : -15 -39 055 degrees QTc Int : 500 ms Sinus bradycardia with 1st degree A-V block Left axis deviation Left bundle branch block Abnormal ECG When compared with ECG of 01-OCT-2019 14:53, No significant change Confirmed by Vimal Resendez ([id number]) on 05/02/2020 4:40:50 PM Referred By: Gordy Alvarado Confirmed By:Vimal Resendez
[2020-05-02] MEDS ORDERED: SODIUM POLYSTYRENE SULFONATE 15G/60ML SUSP PO STA (16:42)
--- NOTE | 2020-05-02 16:42 | History & Physical Report ---
Date of Service May 02, 2020 Assessment & Plan (1) Hyperkalemia: 2nd to CKD stage 5. Worsening K levels despite attempts at low-K diet, outpatient diuretic management, etc. Plan - s/p Ca, dextrose/insulin in ER. kayexalate 20gm PO x 1 now. given presence of volume overload - bumex 2mg IV x 1. BMPs q6h. Telemetry monitoring. could consider sodium bicarbonate but defer for now. I spoke with Dr Alvarado from [facility] nephrology - to have permcath placed in AM by [facility], then HD following such. (2) Chronic kidney disease, stage V: CrCl 15 or less x ~ 1 year. Refractory hyperkalemia for several weeks. Volume overload issues as well. Plan - consult nephrology, [facility], Dr Alvarado for HD management. consult [facility] surgery, Dr Cortes, for HD catheter placement. HD to be initiated tomorrow following catheter insertion. NPO after MN. (3) Pulmonary edema: volume overload/pulm edema clinically & radiographically in setting of CKD stage 5 and chronic diastolic CHF. bumex 2mg IV x 1. Consider additional 1mg x 1 tonight if needed. fortunately O2 sats are wnl and she is having minimal symptoms from the pulm edema. (4) Hypernatremia: Ongoing since September 2019. Mild intravascular volume depletion chronically from diuretic use, but clearly she is total body volume overloaded at this time. Defer on hypotonic fluids. (5) Hyperlipidemia: Cont statin. (6) Hypertension: Uncontrolled. Records suggest significant element of white coat HTN, and patient endorses such, but systolics are very high. Continue all home meds. hydralazine IV prn. Dialysis treatments and volume removal will help the BPs as well. Bumex tonight. Adjust PO meds as needed. (7) CAD (coronary artery disease), kenaitze coronary artery: Cont asa, plavix, coreg, statin. No ischemic symptoms at this time. (8) Pulmonary HTN: severe based on echo 2019. cont night-time O2. Pulm HTN likely contributing to severe LE edema. (9) Hydronephrosis of left kidney: s/p stent replacement, 01/2020. Follows with [facility] Urology. No symptoms at this time. (10) History of ventricular tachycardia: noted. s/p ablation in the past with no recurrence since. cont BB. (11) Lone atrial fibrillation: noted. Cont coreg. not on chronic anticoagulation. (12) Venous stasis dermatitis of both lower extremities: (13) Sleep apnea: CPAP/O2 hs. (14) Anemia: 2nd to CKD stage 5. last Fe studies 08/2019. check Fe studies in am. defer Fe management to nephrology. (15) LBBB (left bundle branch block): chronic (16) DVT prophylaxis: heparin SC 5000 BID care d/w son, Griffin Watson. care d/w Dr Alvarado and Dr Cortes. History of Present Illness Chief Complaint: hyperkalemia Primary Care Provider: Bhavin Prince DO 85yo female with CKD stage 5, recent difficulties with hyperkalemia, chronic diastolic congestive heart failure, pulmonary HTN, GURPREET on CPAP/O2, Hypertension, and CAD who presents from home after outpatient blood work showed K level of 6.3. Her primary landscaping crew leader, Dr Alvarado, called the patient and advised going to the ER for admission and to initiate hemodialysis. During my admission assessment she surprisingly denies any cardiopulmonary or infectious complaints. She has severe, chronic LE edema but it is unchanged from baseline. Denies weight gain. No fevers, chills, chest pain, dyspnea on exertion, loss of taste or smell, etc. Performs most ADLs at home and assists with the care of a special needs daughter who lives with her. Upon ER presentation the ER attending ordered IV dextrose, IV insulin, and IV calcium prior to my arrival for the hyperkalemia. She has had elevated BPs in the ER. She reports "they are always high" (chart mentions white coat HTN) but she does not check her BPs at home. Allergies Allergy/AdvReac Type Severity Reaction Status Date / Time ampicillin Allergy Mild pruritus Verified 05/02/20 17:07 Bactrim Allergy Unknown felt like Verified 11/04/17 07:47 walking on eggs lisinopril Allergy Unknown Unknown Verified 05/02/20 17:07 reaction streptomycin Allergy Unknown Unknown Verified 05/02/20 17:07 reaction sulfamethoxazole AdvReac Intermediate "walking Verified 05/02/20 17:07 on eggs shells" feeling trimethoprim AdvReac Intermediate "walking Verified 05/02/20 17:07 on eggs shells" feeling Home Medications Medication Instructions Recorded Confirmed Type miscellaneous medical supply #1 ea 04/12/19 05/02/20 Rx carvedilol 25 mg tablet 25 mg PO BID #180 tab 04/24/19 05/02/20 Rx isosorbide mononitrate 60 mg 60 mg PO QAM #90 tab 05/12/19 05/02/20 Rx tablet,extended release 24 hr hydralazine 50 mg tablet 100 mg PO TID #560 tab 07/07/19 05/02/20 Rx clopidogrel 75 mg PO QAM 08/01/19 05/02/20 History ergocalciferol (vitamin D2) 1,250 50,000 unit PO MONTHLY #3 cap 01/01/20 05/02/20 Rx mcg (50,000 unit) capsule doxazosin [Cardura] 1 mg PO QAM 01/08/20 05/02/20 History magnesium oxide 400 mg PO QAM 01/08/20 05/02/20 History atorvastatin 80 mg tablet 80 mg PO QPM #90 tab 02/05/20 05/02/20 Rx ferrous sulfate 325 mg (65 mg 325 mg PO DAILY #30 tab 04/10/20 05/02/20 Rx iron) tablet torsemide 5 mg tablet 10 mg PO QAM tab 04/25/20 05/02/20 History aspirin [Aspir-Low] 81 mg PO DAILY 05/02/20 05/02/20 History Past Med/Surg History Medical History (Updated 05/02/20 @ 18:56 by Surya Gipson) Anemia chronic, baseline hgb 9-10 range per chart review CAD (coronary artery disease) IPMI s/p RCA stents x2 (2011) Chronic diastolic CHF (congestive heart failure) Chronic kidney disease, stage V follows with [facility] nephrology (Dr. Alvarado), baseline creatinine 3.5 due to microvascular disease and impaired perfusion associated w/ pulmonary HTN/R heart failure Diabetes mellitus, type 2 diet managed Gout History of nephrolithiasis History of ventricular tachycardia RFA s/p RVOT VTACH (no nown recurrence since 2014 ablation per cardiology records LBBB (left bundle branch block) chronic dating back to at least 2017 stress test, echo done 08/2019 Lone atrial fibrillation Lone event (2013) d/t electrolyte abnormalities with no known recurrence therefore anticoagulation therapy "not required" per heart failure clinic records Myocardial Infarction 2011 Obesity Osteoarthritis Pulmonary hypertension Moderate to severe pulmonary hypertension. RVSP 59 mmHg. Sleep apnea CPAP + O2 2L HS Umbilical hernia Venous stasis dermatitis of both lower extremities Surgical History H/O cardiac catheterization 2006, 2011 (stents x2) History of appendectomy History of cataract surgery R/L History of cystoscopy cysto/stent exchange: 02/20/19: MAC sedation at [facility] cysto/stent exchange: 08/03/19: MAC sedation at [facility] History of tonsillectomy Hx of prior ablation treatment RFA S/P RVOT VTACH (NO RECURRENCE SINCE 2014 ABLATION PER CARDIO) Family History (Updated 05/02/20 @ 18:42 by Surya Gipson) Unknown Hypertension Father , age 53 Lung cancer Mother , age 59 Cancer Other No family history of adverse response to anesthesia Denies family history of Kidney disease Social History (Updated 05/02/20 @ 18:43 by Surya Gipson) Smoking Status: Never smoker Second Hand Exposure: No; Hx Alcohol Use: No Hx Substance Use: No Preferred Language: Senegalese Communication Ability: Effective Visual Impairment: No Limitations Hearing Ability: Normal Community Development Specialist Required: No Beliefs That Will Affect Care: None marital status: / Current Living Situation: Family Current Living Situation Comment: Lives with special needs daughter How many Children do You have: 3 other: 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; 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 Feels Safe at Home: Yes Safety Concerns: Feels Safe At This Time Childhood Exposure to Second-Hand Smoke: No Dental Care, Regularly: No Physical Activity Frequency: Does not Exercise Seatbelt Use: always Sunscreen Use: Yes Assistive Devices: CPAP, Glasses, Oxygen - at Night and Walker Review of Systems Constitutional: + fatigue; no fever, no chills, no anorexia, no weight loss and no weight gain Eyes: no worsening vision Ear, Nose, Mouth, Throat: no nasal congestion, no sore throat and no dysphagia denies loss of taste/smell Respiratory: no cough, no dyspnea, no dyspnea on exertion and no wheezing Cardiovascular: + edema (chronic - severe ); no chest pain Gastrointestinal: no abdominal pain, no nausea, no vomiting, no diarrhea/loose stools and no blood in stools Genitourinary: no dysuria Musculoskeletal: no joint pain Integumentary: + rash (shins - chronic, no changes from baseline) Neurologic: + loss of sensation (b/l hands -- digits 3/4/5) Psychiatric: no depression Endocrine: denies diabetes Hematologic / Lymphatic: + easy bruising Physical Exam Constitutional: + obese; no acute distress and no altered mental status Eyes: PERRL (lens implants b/l ) ENMT: external ear and nose normal, oropharynx normal Ears: no TM abnormality Neck: trachea midline, no thyromegaly bruit - left neck Respiratory: no respiratory distress and does not use accessory muscles Auscultation: + crackles (b/l bases) and + wheezes (scattered, end-exp) Cardiovascular: Rate/Rhythm: regular rate and regular rhythm Heart Sounds: normal S1, normal S2 and + murmur (3/6 early systolic LLSB) Vessels: + JVD (2/3 way up neck ), posterior tibial pulses present and dorsalis pedis pulses present Extremities: + edema (severe lymphedema b/l legs to the knees ) Gastrointestinal (Abdomen): normal bowel sounds, soft, nontender, no hepatosplenomegaly Percussion/Palpation: + hernia (umbilical - reducible ) Musculoskeletal: Extremities: strength 5/5 throughout Skin: + rash (stasis changes b/l legs, much worse L puri; healed ulceration L foot dorsum) Neurologic: deep tendon reflexes 2+ bilaterally and moves all extremities; no focal motor deficits Psychiatric: A+Ox3, euthymic affect Lymphatic: no cervical lymphadenopathy Results & Data Results & Data ([facility]) Vital Signs (Past 12 Hours) Vital Signs Temp Pulse Resp BP Pulse Ox 05/02/20 15:44 97 05/02/20 15:37 88 L 05/02/20 15:33 59 L 14 204/60 H 91 05/02/20 15:13 36.2 C L 57 L 18 210/69 H 91 Laboratory Results Laboratory Results - last 24 hr 05/02/20 05/02/20 05/02/20 15:30 15:30 16:50 WBC 5.01 RBC 3.35 L Hgb 10.2 L Hct 33.8 L MCV 100.9 H MCH 30.4 MCHC 30.2 L RDW Std Deviation 60.1 H RDW Coeff of Nicolasa 16.1 H Plt Count 105 L MPV 11.0 H Immature Gran % (Auto) 0.4 Neut % (Auto) 45.7 Lymph % (Auto) 35.9 Leslie % (Auto) 7.8 Eos % (Auto) 9.8 Baso % (Auto) 0.4 Neut # (Auto) 2.29 Lymph # (Auto) 1.80 Leslie # (Auto) 0.39 Eos # (Auto) 0.49 Baso # (Auto) 0.02 Immature Gran # (Auto) 0.02 Sodium 148 H Potassium 6.3 H* Chloride 117 H Carbon Dioxide 26 Anion Gap 4.0 BUN 85 H Creatinine 3.55 H Est Cr Clr Drug Dosing 13.6 Est GFR ( Amer) 12.9 Est GFR (Non-Af Amer) 11.1 BUN/Creatinine Ratio 24.1 H Glucose 115 H Calcium 8.7 COVID-19 Eval [facility] SARS-CoV-2, RNA, NAAT 05/02/20 16:50 WBC RBC Hgb Hct MCV MCH MCHC RDW Std Deviation RDW Coeff of Nicolasa Plt Count MPV Immature Gran % (Auto) Neut % (Auto) Lymph % (Auto) Leslie % (Auto) Eos % (Auto) Baso % (Auto) Neut # (Auto) Lymph # (Auto) Leslie # (Auto) Eos # (Auto) Baso # (Auto) Immature Gran # (Auto) Sodium Potassium Chloride Carbon Dioxide Anion Gap BUN Creatinine Est Cr Clr Drug Dosing Est GFR ( Amer) Est GFR (Non-Af Amer) BUN/Creatinine Ratio Glucose Calcium COVID-19 Eval Order SARS-CoV-2, RNA, NAAT NEGATIVE Diagnostic Findings 1. cxr - b/l effusions, pulm edema 2. EKG - my reading - sinus michael, LBBB, first degree AV block, peaked T's anterior leads, no ST changes Code Status & VTE Plan Code Status DNR/DNI; hemodialysis is OK VTE Prophylaxis Plan VTE Prophylaxis will be ordered: Yes PG Care Time/CCT Total # of Minutes Spent Total Time Spent with Patient: Total time spent is greater than 50% in coordination of care (as documented) at patient's floor/unit and/or counseling patient: Coding Level of Care Code 32582 Initial Inpt Care Lvl 3 Diagnoses Hyperkalemia E87.5 Chronic kidney disease, stage V N18.5 Pulmonary edema J81.1 Hypernatremia E87.0 Hyperlipidemia E78.5 Hyperlipidemia type: unspecified Hypertension I10 CAD (coronary artery disease), kenaitze coronary artery I25.10 Pulmonary HTN I27.20 Hydronephrosis of left kidney N13.30 History of ventricular tachycardia Z86.79 Lone atrial fibrillation I48.91 Venous stasis dermatitis of both lower extremities I87.2 Sleep apnea G47.30 Anemia D64.9 LBBB (left bundle branch block) I44.7 DVT prophylaxis Z29.9 (1) Hyperlipidemia Hyperlipidemia type: unspecified Qualified Code(s): E78.5 - Hyperlipidemia, unspecified
--- NOTE | 2020-05-02 17:34 | Emergency Department Note ---
History of Present Illness General Chief Complaint: Abnormal Labs/Diagnostic Testing Stated Complaint: ELEVATED POTASSIUM LEVEL - DIRECT ADMIT Time Seen by Provider: 05/02/20 15:15 History of Present Illness Provider Complaint: + abnormal lab Description of abnormal result: Hyperkalemia Symptoms since prior visit: + no new symptoms Associated symptoms: no fever, no chills, no chest pain, no shortness of breath, no rash, no nausea and no abdominal pain HPI narrative: Patient has history of CKD hyperkalemia. Creatinine has been elevated and potassium has been elevated. Home Medications Medication Instructions Recorded Confirmed Type miscellaneous medical supply #1 ea 04/12/19 05/02/20 Rx carvedilol 25 mg tablet 25 mg PO BID #180 tab 04/24/19 05/02/20 Rx isosorbide mononitrate 60 mg 60 mg PO QAM #90 tab 05/12/19 05/02/20 Rx tablet,extended release 24 hr hydralazine 50 mg tablet 100 mg PO TID #560 tab 07/07/19 05/02/20 Rx clopidogrel 75 mg PO QAM 08/01/19 05/02/20 History ergocalciferol (vitamin D2) 1,250 50,000 unit PO MONTHLY #3 cap 01/01/2005/02 Rx mcg (50,000 unit) capsule doxazosin [Cardura] 1 mg PO QAM 01/08/20 05/02/20 History magnesium oxide 400 mg PO QAM 01/08/20 05/02/20 History atorvastatin 80 mg tablet 80 mg PO QPM #90 tab 02/05/20 05/02/20 Rx ferrous sulfate 325 mg (65 mg 325 mg PO DAILY #30 tab 04/10/20 05/02/20 Rx iron) tablet torsemide 5 mg tablet 10 mg PO QAM tab 04/25/20 05/02/20 History aspirin [Aspir-Low] 81 mg PO DAILY 05/02/20 05/02/20 History Allergies Allergy/AdvReac Type Severity Reaction Status Date / Time ampicillin Allergy Mild pruritus Verified 05/02/20 17:07 Bactrim Allergy Unknown felt like Verified 11/04/17 07:47 walking on eggs lisinopril Allergy Unknown Unknown Verified 05/02/20 17:07 reaction streptomycin Allergy Unknown Unknown Verified 05/02/20 17:07 reaction sulfamethoxazole AdvReac Intermediate "walking Verified 05/02/20 17:07 on eggs shells" feeling trimethoprim AdvReac Intermediate "walking Verified 05/02/20 17:07 on eggs shells" feeling Past Med/Surg History Medical History Anemia chronic, baseline hgb 9-10 range per chart review CAD (coronary artery disease) IPMI s/p RCA stents x2 (2011) Chronic diastolic CHF (congestive heart failure) Chronic kidney disease, stage IV (severe) follows with [facility] [place] nephrology (Dr. Alvarado), baseline creatinine 3.5 due to microvascular disease and impaired perfusion associated w/ pulmonary HTN/R heart failure, No acute indication for HD at this time per 09/2019 nephrology evaluation Chronic respiratory failure with hypoxia Diabetes mellitus, type 2 diet managed Gout History of nephrolithiasis History of ventricular tachycardia RFA s/p RVOT VTACH (no nown recurrence since 2014 ablation per cardiology records LBBB (left bundle branch block) chronic dating back to at least 2017 stress test, echo done 08/2019 Lone atrial fibrillation Lone event (2013) d/t electrolyte abnormalities with no known recurrence therefore anticoagulation therapy "not required" per heart failure clinic records Myocardial Infarction 2011 Obesity Osteoarthritis Pulmonary hypertension Moderate to severe pulmonary hypertension. RVSP 59 mmHg. Sleep apnea CPAP + O2 2L HS Umbilical hernia Venous stasis dermatitis of both lower extremities Surgical History H/O cardiac catheterization 2006, 2011 (stents x2) History of appendectomy History of cataract surgery R/L History of cystoscopy cysto/stent exchange: 02/20/19: MAC sedation at [facility] cysto/stent exchange: 08/03/19: MAC sedation at [facility] History of tonsillectomy Hx of prior ablation treatment RFA S/P RVOT VTACH (NO RECURRENCE SINCE 2014 ABLATION PER CARDIO) Family History Unknown Hypertension Other No family history of adverse response to anesthesia Social History Smoking Status: Never smoker Second Hand Exposure: No; Hx Alcohol Use: No Hx Substance Use: No Preferred Language: Wallisian Communication Ability: Effective Visual Impairment: No Limitations Hearing Ability: Normal It Communications Manager Required: No Beliefs That Will Affect Care: None marital status: / Current Living Situation: Family Current Living Situation Comment: Lives with special needs daughter How many Children do You have: 3 Feels Safe at Home: Yes Childhood Exposure to Second-Hand Smoke: No Dental Care, Regularly: No Physical Activity Frequency: Does not Exercise Seatbelt Use: always Sunscreen Use: Yes Assistive Devices: CPAP, Glasses, Oxygen - at Night and Walker Review of Systems A total of 10 systems reviewed and were otherwise negative Physical Exam Vital Signs: Vital Signs - 24 hr 05/02/20 15:13 05/02/20 15:33 05/02/20 15:37 Temperature 36.2 C L Temperature Source Temporal Artery Sc an Pulse Rate 57 L 59 L Pulse Rate from Sp O2 Sensor 59 L Respiratory Rate 18 14 Respiratory Effort / Characteristics Non-Labored Respiratory Depth Normal Blood Pressure 210/69 H 204/60 H Blood Pressure Dottie n 116 108 Pulse Oximetry 91 91 88 L Oxygen Delivery Me thod Room Air Room Air Oxygen Flow Rate Sepsis Recent Feve r Within 48 Hours No Sepsis New/Unexpla ined Change in Men zo Status No Sepsis Action Take n by Nursing No Action Required 05/02/20 15:44 05/02/20 16:00 05/02/20 16:30 Temperature Temperature Source Pulse Rate 59 L 53 L Pulse Rate from Sp O2 Sensor 59 L 52 L Respiratory Rate 15 12 Respiratory Effort / Characteristics Respiratory Depth Blood Pressure 163/83 H 187/58 H Blood Pressure Dottie n 109 101 Pulse Oximetry 97 98 97 Oxygen Delivery Me thod Nasal Cannula Room Air Room Air Oxygen Flow Rate 2 Sepsis Recent Feve r Within 48 Hours Sepsis New/Unexpla ined Change in Men zo Status Sepsis Action Take n by Nursing Physical Exam: Physical Exam GENERAL: She is oriented to person, place, and time. She appears well-developed and well-nourished. She does not appear distressed. HENT: Exam performed. -Head: Normocephalic and atraumatic. -Right Ear: External ear normal. No mastoid tenderness. -Left Ear: External ear normal. No mastoid tenderness. -Mouth/Throat: The oropharynx is clear and moist. No trismus in the jaw. No dental abscesses or uvula swelling. No oropharyngeal exudate or tonsillar abscesses. EYES: Conjunctivae and EOM are normal. Pupils are equal, round, and reactive to light. Right eye exhibits no discharge. Left eye exhibits no discharge. No scleral icterus. NECK: Normal range of motion. Neck supple. No JVD present. No spinous process tenderness present. No carotid bruit present. No rigidity. No tracheal deviation and normal range of motion present. No Brudzinski's sign and no Kernig's sign noted. CV: Normal rate, regular rhythm, normal heart sounds and intact distal pulses. 3+ pitting edema of the bilateral lower extremities. Palpable radial pulses bue. PULM/CHEST: Effort normal and breath sounds normal. No respiratory distress. No stridor. She has no wheezes. She has no rales. -Chest Wall: She exhibits no tenderness. ABD: The abdomen is soft. Bowel sounds are normal. She has no distension. No mass is present. There is no tenderness. There is no rebound, no guarding, no Akhtar's sign and no tenderness at McBurney's point. Rovsig negative MUSC/SKEL: 3+ pitting edema of the bilateral lower extremities LYMPH: No cervical adenopathy. NEURO: She is alert and oriented to person, place, and time. She has normal strength. No cranial nerve deficit or sensory deficit. Coordination and gait normal. GCS eye subscore is 4. GCS verbal subscore is 5. GCS motor subscore is 6. Cerebellar tests wnl. SKIN: Skin is warm and dry. She is not diaphoretic. PSYCH: She has a normal mood and affect. Behavior is normal. Judgment and tho ught content normal. Course Course 1515: The patient was evaluated in room B6. A complete history and physical exam was performed. Cardiac monitoring: An order was placed for continuous cardiac monitoring. The monitor shows a rate of 60 with sinus rhythm EMR reviewed. Patient had blood work done yesterday which showed a potassium of 6.2 and a creatinine of 3.62. Her potassium on fourth was 5.9 with a creatinine of 3.69. Potassium on April 17 was 6 with a creatinine of 3.87. 1620: Vital signs stable. Potassium 6.3 today creatinine 3.55. Patient was treated with calcium gluconate 1 g as well as 5 units of insulin and 1 amp of D50. Patient will be admitted to the [facility] team. Administered Medications Discontinued Medications Dextrose (Dextrose 50% 50 Ml Syringe) 50 ml IV NOW STA Stop: 05/02/20 16:19 Last Admin: 05/02/20 16:48 Dose: 50 ml Documented by: [id number] Calcium Gluconate 1,000 mg/ (Sodium Chloride) 60 mls @ 240 mls/hr IV NOW STA Stop: 05/02/20 16:19 Last Infusion: 05/02/20 17:12 Dose: 0 mls/hr Documented by: [id number] Admin: 05/02/20 16:48 Dose: 240 mls/hr Documented by: [id number] Insulin Human Regular 5 units/ (Syringe) 9.9 mls @ 3 mls/sec IV ONE STA Stop: 05/02/20 16:19 Last Admin: 05/02/20 16:48 Dose: 3 mls/sec Documented by: [id number] Cosigned by: [id number] Medical Decision Making Laboratory Data Result diagrams: 05/02/20 15:30 05/02/20 15:30 Lab Results 05/02/20 05/02/20 05/02/20 Range/Units 15:30 15:30 16:50 WBC 5.01 (4.8-10.8) K/uL RBC 3.35 L (4.2-5.4) M/uL Hgb 10.2 L (12.0-16.0) g/dL Hct 33.8 L (37-47) % MCV 100.9 H (80-100) fL MCH 30.4 (25-34) pg MCHC 30.2 L (32-36) g/dL RDW Std Deviation 60.1 H (36.4-46.3) fL RDW Coeff of Nicolasa 16.1 H (11.5-14.5) % Plt Count 105 L (130-400) K/uL MPV 11.0 H (7.4-10.4) fL Immature Gran % (Auto) 0.4 % Neut % (Auto) 45.7 % Lymph % (Auto) 35.9 % [place] % (Auto) 7.8 % Eos % (Auto) 9.8 % Baso % (Auto) 0.4 % Neut # (Auto) 2.29 (1.4-6.5) K/uL Lymph # (Auto) 1.80 (1.2-3.4) K/uL [place] # (Auto) 0.39 (0.11-0.59) K/uL Eos # (Auto) 0.49 (0-0.5) K/uL Baso # (Auto) 0.02 (0-0.2) K/uL Immature Gran # (Auto) 0.02 (0.00-0.02) K/uL Sodium 148 H (136-145) mmol/L Potassium 6.3 H* (3.5-5.1) mmol/L Chloride 117 H (98-107) mmol/L Carbon Dioxide 26 (21-32) mmol/L Anion Gap 4.0 (3-11) BUN 85 H (7-18) mg/dl Creatinine 3.55 H (0.6-1.2) mg/dl Est Cr Clr Drug Dosing 13.6 ml/min Est GFR ( Amer) 12.9 Est GFR (Non-Af Amer) 11.1 BUN/Creatinine Ratio 24.1 H (10-20) Glucose 115 H (70-99) mg/dl Calcium 8.7 (8.5-10.1) mg/dl COVID-19 Eval [facility] SARS-CoV-2, RNA, NAAT (NEGATIVE) 05/02/20 Range/Units 16:50 WBC (4.8-10.8) K/uL RBC (4.2-5.4) M/uL Hgb (12.0-16.0) g/dL Hct (37-47) % MCV (80-100) fL MCH (25-34) pg MCHC (32-36) g/dL RDW Std Deviation (36.4-46.3) fL RDW Coeff of Nicolasa (11.5-14.5) % Plt Count (130-400) K/uL MPV (7.4-10.4) fL Immature Gran % (Auto) % Neut % (Auto) % Lymph % (Auto) % [place] % (Auto) % Eos % (Auto) % Baso % (Auto) % Neut # (Auto) (1.4-6.5) K/uL Lymph # (Auto) (1.2-3.4) K/uL [place] # (Auto) (0.11-0.59) K/uL Eos # (Auto) (0-0.5) K/uL Baso # (Auto) (0-0.2) K/uL Immature Gran # (Auto) (0.00-0.02) K/uL Sodium (136-145) mmol/L Potassium (3.5-5.1) mmol/L Chloride (98-107) mmol/L Carbon Dioxide (21-32) mmol/L Anion Gap (3-11) BUN (7-18) mg/dl Creatinine (0.6-1.2) mg/dl Est Cr Clr Drug Dosing ml/min Est GFR ( Amer) Est GFR (Non-Af Amer) BUN/Creatinine Ratio (10-20) Glucose (70-99) mg/dl Calcium (8.5-10.1) mg/dl COVID-19 Eval Order SARS-CoV-2, RNA, NAAT NEGATIVE (NEGATIVE) ECG Data Indication: palpitations Rate (beats per minute): 57 Rhythm: normal sinus Findings: + 1st degree AV block, + LBBB and + prolonged QT Additional Comments: LA 212 QRS 156 QTC 500. sgarbosa negative MDM Narrative 1515: The patient was evaluated in room B6. A complete history and physical exam was performed. Cardiac monitoring: An order was placed for continuous cardiac monitoring. The monitor shows a rate of 60 with sinus rhythm EMR reviewed. Patient had blood work done yesterday which showed a potassium of 6.2 and a creatinine of 3.62. Her potassium on was 5.9 with a creatinine of 3.69. Potassium on April 17 was 6 with a creatinine of 3.87. 1620: Vital signs stable. Potassium 6.3 today creatinine 3.55. Patient was treated with calcium gluconate 1 g as well as 5 units of insulin and 1 amp of D50. Patient will be admitted to the [facility] team. Impression & Plan Acute hyperkalemia, Chronic kidney disease, stage IV (severe) Critical Care Time Critical Care Time: Yes Total Critical Care Time: 58 I have personally spent greater than 58 minutes of critical care time in the direct management of this patient. This includes bedside care, interpretation of diagnostic studies, and testing, discussion with consultants, patient, and family members, and other required patient management activities. This 58 minutes is in excess of all separately billable procedures. Discharge Plan Visit Data Chief Complaint: Abnormal Labs/Diagnostic Testing Stated Complaint: ELEVATED POTASSIUM LEVEL - DIRECT ADMIT ED Provider: Arnoldo Acevedo Discharge Problem: Acute hyperkalemia, Chronic kidney disease, stage IV (severe) Patient Disposition: Admitted As Inpatient Forms Stand Alone Forms: My [facility] Prescriptions Prescriptions: No Action carvedilol 25 mg tablet 25 mg PO BID Qty: 180 RF: 3 isosorbide mononitrate 60 mg tablet extended release 24 hr 60 mg PO QAM Qty: 90 RF: 3 hydralazine 50 mg tablet 100 mg PO TID Qty: 560 RF: 3 ergocalciferol (vitamin D2) 1,250 mcg (50,000 unit) capsule 50,000 unit PO MONTHLY Qty: 3 RF: 1 atorvastatin 80 mg tablet 80 mg PO QPM Qty: 90 RF: 3 torsemide 5 mg tablet 10 mg PO QAM RF: 0 (DME) CPAP Supplies Misc See Rx Instructions .ROUTE .MEDSUPPLY Qty: 1 RF: 0 ferrous sulfate 325 mg (65 mg iron) tablet 325 mg PO DAILY Qty: 30 RF: 0 clopidogrel 75 mg tablet 75 mg PO QAM RF: 0 magnesium oxide 400 mg magnesium Capsule 400 mg PO QAM RF: 0 doxazosin [Cardura] 1 mg tablet 1 mg PO QAM RF: 0 aspirin [Aspir-Low] 81 mg Tablet,Delayed Release (Dr/Ec) 81 mg PO DAILY RF: 0 Referrals Referrals: Bhavin Prince DO [Primary Care Provider] -
--- NOTE | 2020-05-02 17:57 | XRay Report ---
TWO VIEW CHEST CLINICAL HISTORY: Dyspnea. Rales and wheezing. Pulmonary edema. FINDINGS: AP and lateral chest radiographs are compared to study dated 01/10/2020. The AP view is deg raded by patient rotation. The heart is enlarged noting atherosclerotic calcification of the thoracic aorta. There is pulmonary vascular congestion with interstitial edema. There are layering pleural ef fusions with bibasilar consolidation. There is no pneumothorax. The skeletal structures are osteopeni c. There is chronic posttraumatic deformity of the left clavicle. Advanced arthritic changes seen in the shoulders. Superior subluxation of the humeral heads suggest chronic bilateral rotator cuff injur y. IMPRESSION: 1. Cardiomegaly with evidence of congestive failure and interstitial edema. Radiographic follow-up to resolution is recommended. 2. Layering pleural effusions with bibasilar consolidation. ACT 112: Negative or not required by law. Electronically signed by: Ervin Cat M.D. 05/02/2020 5:56 PM
[2020-05-02] MEDS ORDERED: ONDANSETRON INJ 2 MG/ML 2 ML VIAL IV PRN (18:35)
[2020-05-02] MEDS ORDERED: hydrALAZINE HCL 20 MG/ML VIAL IV PRN (18:35)
[2020-05-02] MEDS ORDERED: NITROGLYCERIN SL 0.4 MG/TAB TAB SL PRN (18:35)
[2020-05-02] MEDS ORDERED: BUMETANIDE 2 MG in SYRINGE 0 ML IV ONE (19:30)
[2020-05-02 19:40] LABS: BUN Creatinine Ratio 22.9 (10-20); Creatinine Clr Calc Pharmacy 12.9 ml/min; Est GFR (African American) 12.4; Est GFR (Non-African American) 10.7; Potassium 6.1 mmol/L (3.5-5.1)
[2020-05-02] MEDS: hydrALAZINE TAB 50 MG TAB PO SCH (21:01)
[2020-05-02] MEDS: HEPARIN SOD 5,000 UNIT/0.5 ML VIAL SQ SCH (21:01)
[2020-05-02] MEDS: ATORVASTATIN 40 MG TAB PO SCH (21:02)
[2020-05-02] MEDS: carvediloL 25 MG TAB PO SCH (21:02)
[2020-05-02 22:22] LABS: Appearance Urine Cloudy (Clear); Bacteria Urine Automated 1+ (Negative); Bilirubin Urine Negative (Negative); Blood Urine Trace (Negative); Color Urine Yellow; Epithelial Cell Urine Auto >30 /lpf (0-5); Glucose Urine UA Negative (Negative); Ketones Urine Negative (Negative); Leukocyte Esterase Urine 2+ (Negative); Nitrite Urine Negative (Negative); Protein Urine 3+ (Negative); Specific Gravity Urine 1.015 (1.000-1.030); Urobilinogen Urine Negative (Negative); WBC Urine Automated >30 /hpf (0-5)
[2020-05-03 00:53] LABS: BUN Creatinine Ratio 23.8 (10-20); Calcium 8.3 mg/dl (8.5-10.1); Creatinine Clr Calc Pharmacy 13.4 ml/min; Est GFR (African American) 12.9; Est GFR (Non-African American) 11.1; Potassium 6.3 mmol/L (3.5-5.1)
[2020-05-03 06:43] LABS: Hematocrit (blood only) 31.6 % (37-47); Hemoglobin 9.5 g/dL (12.0-16.0); Mean Corpuscular Hemoglobin 30.4 pg (25-34); Mean Corpuscular Hgb Conc 30.1 g/dL (32-36); Mean Corpuscular Volume 101.3 fL (80-100); Mean Platelet Volume 11.4 fL (7.4-10.4); Platelet Count 111 K/uL (130-400); RDW Coefficient of Variation 16.4 % (11.5-14.5); RDW Standard Deviation 61.2 fL (36.4-46.3); Red Blood Count 3.12 M/uL (4.2-5.4); White Blood Count 4.33 K/uL (4.8-10.8)
[2020-05-03 06:55] LABS: INR 1.1 (0.9-1.1); Prothrombin Time 11.4 Seconds (9.0-12.0)
[2020-05-03 07:21] LABS: BUN Creatinine Ratio 23.3 (10-20); Calcium 8.7 mg/dl (8.5-10.1); Creatinine Clr Calc Pharmacy 13.4 ml/min; Est GFR (African American) 12.9; Est GFR (Non-African American) 11.2; Potassium 5.6 mmol/L (3.5-5.1)
[2020-05-03 07:26] LABS: Ferritin 61.9 ng/ml (8-388)
[2020-05-03] MEDS ORDERED: HEPARIN SOD (PORCINE) 5,000 UNITS/ML VIAL ONE (08:04)
[2020-05-03] MEDS ORDERED: LIDOCAINE HCL 1% 20 ML VIAL ONE (08:05)
[2020-05-03] MEDS ORDERED: MIDAZOLAM HCL 1 MG/ML 2ML VIAL ONE ×2 (08:08→09:39)
[2020-05-03] MEDS ORDERED: fentaNYL citrate 100 MCG/2 ML VIAL ONE (08:08)
--- NOTE | 2020-05-03 08:39 | Consultation ---
Date of Consultation May 03, 2020 Assessment & Plan (1) Chronic kidney disease, stage V: Patient for permcath insertion today. I have discussed the risks options and benefits of the procedure with the patient. The patient understands the risks options and benefits and agrees to the procedure. History of Present Illness Reason for Consultation: End stage renal disease Attending Physician: Anneliese Vargas MD History of Present Illness Patient with worsening renal function and now is need of dialysis. Permcath was recommended. Allergies Allergy/AdvReac Type Severity Reaction Status Date / Time ampicillin Allergy Mild pruritus Verified 05/02/20 17:07 Bactrim Allergy Unknown felt like Verified 11/04/17 07:47 walking on eggs lisinopril Allergy Unknown Unknown Verified 05/02/20 17:07 reaction streptomycin Allergy Unknown Unknown Verified 05/02/20 17:07 reaction sulfamethoxazole AdvReac Intermediate "walking Verified 05/02/20 17:07 on eggs shells" feeling trimethoprim AdvReac Intermediate "walking Verified 05/02/20 17:07 on eggs shells" feeling Home Medications Medication Instructions Recorded Confirmed Type miscellaneous medical supply #1 ea 04/12/19 05/02/20 Rx carvedilol 25 mg tablet 25 mg PO BID #180 tab 04/24/19 05/02/20 Rx isosorbide mononitrate 60 mg 60 mg PO QAM #90 tab 05/12/19 05/02/20 Rx tablet,extended release 24 hr hydralazine 50 mg tablet 100 mg PO TID #560 tab 07/07/19 05/02/20 Rx clopidogrel 75 mg PO QAM 08/01/19 05/02/20 History ergocalciferol (vitamin D2) 1,250 50,000 unit PO MONTHLY #3 cap 01/01/20 05/02/20 Rx mcg (50,000 unit) capsule doxazosin [Cardura] 1 mg PO QAM 01/08/20 05/02/20 History magnesium oxide 400 mg PO QAM 01/08/20 05/02/20 History atorvastatin 80 mg tablet 80 mg PO QPM #90 tab 02/05/20 05/02/20 Rx ferrous sulfate 325 mg (65 mg 325 mg PO DAILY #30 tab 04/10/20 05/02/20 Rx iron) tablet torsemide 5 mg tablet 10 mg PO QAM tab 04/25/20 05/02/20 History aspirin [Aspir-Low] 81 mg PO DAILY 05/02/20 05/02/20 History Patient History Medical History Anemia chronic, baseline hgb 9-10 range per chart review CAD (coronary artery disease) IPMI s/p RCA stents x2 (2011) Chronic diastolic CHF (congestive heart failure) Chronic kidney disease, stage V follows with [facility] [place] nephrology (Dr. Alvarado), baseline creatinine 3.5 due to microvascular disease and impaired perfusion associated w/ pulmonary HTN/R heart failure Diabetes mellitus, type 2 diet managed Gout History of nephrolithiasis History of ventricular tachycardia RFA s/p RVOT VTACH (no nown recurrence since 2014 ablation per cardiology records LBBB (left bundle branch block) chronic dating back to at least 2017 stress test, echo done 08/2019 Lone atrial fibrillation Lone event (2013) d/t electrolyte abnormalities with no known recurrence therefore anticoagulation therapy "not required" per heart failure clinic records Myocardial Infarction 2011 Obesity Osteoarthritis Pulmonary hypertension Moderate to severe pulmonary hypertension. RVSP 59 mmHg. Sleep apnea CPAP + O2 2L HS Umbilical hernia Venous stasis dermatitis of both lower extremities Surgical History H/O cardiac catheterization 2011 (stents x2) History of appendectomy History of cataract surgery R/L History of cystoscopy cysto/stent exchange: 02/20/19: MAC sedation at [facility] cysto/stent exchange: 08/03/19: MAC sedation at [facility] History of tonsillectomy Hx of prior ablation treatment RFA S/P RVOT VTACH (NO RECURRENCE SINCE 2014 ABLATION PER CARDIO) Family History Unknown Hypertension Father , age 53 Lung cancer Mother , age 59 Cancer Other No family history of adverse response to anesthesia Denies family history of Kidney disease Social History Smoking Status: Never smoker Second Hand Exposure: No; Hx Alcohol Use: No Hx Substance Use: No Preferred Language: Gibraltarian Communication Ability: Effective Visual Impairment: No Limitations Hearing Ability: Normal Host Hostess Required: No Beliefs That Will Affect Care: None marital status: / Current Living Situation: Family Current Living Situation Comment: Lives with special needs daughter How many Children do You have: 3 other: 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; 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 Feels Safe at Home: Yes Safety Concerns: Feels Safe At This Time Childhood Exposure to Second-Hand Smoke: No Dental Care, Regularly: No Physical Activity Frequency: Does not Exercise Seatbelt Use: always Sunscreen Use: Yes Assistive Devices: Oxygen - Continuous and Walker Review of Systems Review of Systems: All systems reviewed & are unremarkable except as noted in HPI & below Physical Exam Respiratory: normal respiratory effort, lungs clear to auscultation Cardiovascular: Rate/Rhythm: regular rate and regular rhythm Psychiatric: Orientation: alert and oriented x 3 Results & Data ([facility]) Vital Signs (Past 12 Hours) Vital Signs Temp Pulse Pulse Resp BP Pulse Ox 05/03/20 08:31 36.8 C 63 16 196/66 H 96 05/03/20 08:08 36.6 C 107 H 18 183/58 H 99 05/03/20 04:53 180/60 H 05/03/20 04:04 180/70 H 05/03/20 03:54 36.5 C 61 14 183/66 H 95 05/02/20 23:48 96 05/02/20 23:06 36.4 C L 58 L 18 167/63 H 91 05/02/20 22:30 58 L
--- NOTE | 2020-05-03 08:40 | Pre Anesthesia Assessment ---
Date of Service May 03, 2020 Pre Sedation Assessment Vital Signs Temp Pulse Pulse Pulse Resp BP BP 05/03/20 08:31 36.8 C 63 16 196/66 H 05/03/20 08:08 36.6 C 107 H 18 183/58 H 05/03/20 04:53 180/60 H 05/03/20 04:04 180/70 H 05/03/20 03:54 36.5 C 61 14 183/66 H 05/02/20 23:48 05/02/20 23:06 36.4 C L 58 L 18 167/63 H 05/02/20 22:30 58 L 05/02/20 19:49 36.4 C L 67 18 195/85 H 05/02/20 19:00 55 L 05/02/20 18:38 36.4 C L 70 22 215/63 H 05/02/20 18:36 36.4 C L 70 22 215/63 H 05/02/20 18:35 05/02/20 17:30 56 L 16 184/57 H 05/02/20 17:00 63 21 191/70 H 05/02/20 16:30 53 L 12 187/58 H 05/02/20 16:00 59 L 15 163/83 H 05/02/20 15:44 05/02/20 15:37 05/02/20 15:33 59 L 14 204/60 H 05/02/20 15:13 36.2 C L 57 L 18 210/69 H Pulse Ox Pulse Ox 05/03/20 08:31 96 05/03/20 08:08 99 05/03/20 04:53 05/03/20 04:04 05/03/20 03:54 95 05/02/20 23:48 96 05/02/20 23:06 91 05/02/20 22:30 05/02/20 19:49 97 05/02/20 19:00 05/02/20 18:38 94 05/02/20 18:36 94 05/02/20 18:35 97 05/02/20 17:30 97 05/02/20 17:00 96 05/02/20 16:30 97 05/02/20 16:00 98 05/02/20 15:44 97 05/02/20 15:37 88 L 05/02/20 15:33 91 05/02/20 15:13 91 Cardiovascular RRR, no murmur, no edema Respiratory normal respiratory effort, lungs clear to auscultation Pre-Sedation Airway Assessment Smoking Status: Never smoker Hx Sleep Apnea: Yes (cpap at night) Short, Thick Neck: No Thyromental Distance: > or= 3.5 Finger Breadths Oral Cavity: + WNL Mallampati Class: II ASA: ASA4 NPO Status Date of Last Intake of Fluids: 05/02/20 Time of Last Intake of Fluids: 21:00 Date of Last Intake of Solid Food: 05/02/20 Time of Last Intake of Solid Foods: 21:00 Procedure Planning Contraindications for Sedation: none Current Medications Reviewed: Yes Notes The planned sedation has been discussed with the patient. Informed Consent was obtained. I have identified the patient, determined the appropriateness of sedation and have assessed the patient immediately prior to the procedure. All medicine(s) and interventions are by my order.
[2020-05-03 08:55] LABS: Hepatitis B Surface Ab Quant < 3.10 mIU/mL (>or=10mIU/mL Immune); Hepatitis B Surface Antibody Non-Immune
[2020-05-03] MEDS ORDERED: CLINDAMYCIN 600 MG/54 ML D5W IV ONE (08:58)
[2020-05-03 09:06] LABS: Hepatitis B Surf Ag Rflx Conf Neg (Neg)
--- NOTE | 2020-05-03 09:50 | Post Operative Brief Note ---
Immediate Post Op Note v1 Date of Surgery May 03, 2020 Pre & Post Diagnosis Operation Date: 05/03/20 08:00 Pre-Op Diagnosis: End Stage Renal Disease Post-Op Diagnosis: End Stage Renal Disease I identified the patient and participated in the time-out.: Yes Procedure Operation Date: 05/03/20 08:00 Actual Procedures p Perm Catheter Insertion Right Jugular Approach, Ultrasound Localization of Right Jugular Vein, Fluoroscopy for positioning, Moderate Sedation [id number](Right) - Mal Cortes MD Surgeon Mal Cortes MD Public Policy Associate MD Frank Estimated Blood Loss 25 Findings Consistent with Post-Op Diagnosis Anesthesia Type RN Sedation Complications none Disposition Accompanied Patient To Recovery: No Disposition: Recovery Room
[2020-05-03] MEDS ORDERED: EPOETIN ALFA 20,000 UNITS/ML VIAL IV ONE (10:00)
--- NOTE | 2020-05-03 10:09 | Post Anesthesia Assessment ---
Date of Service May 03, 2020 Post Sedation Assessment Vital Signs Temp Pulse Pulse Pulse Resp BP BP 05/03/20 10:00 52 L 16 112/46 L 05/03/20 09:54 56 L 16 113/45 L 05/03/20 09:49 61 16 115/52 L 05/03/20 09:44 52 L 16 117/48 L 05/03/20 09:39 55 L 16 134/47 L 05/03/20 09:34 58 L 16 123/46 L 05/03/20 09:29 57 L 16 133/56 L 05/03/20 09:24 52 L 16 125/57 L 05/03/20 09:19 65 16 132/64 05/03/20 09:14 54 L 16 135/52 L 05/03/20 09:12 60 16 200/72 H 05/03/20 08:31 36.8 C 63 16 196/66 H 05/03/20 08:08 36.6 C 107 H 18 183/58 H 05/03/20 08:00 56 L 05/03/20 04:53 180/60 H 05/03/20 04:04 180/70 H 05/03/20 03:54 36.5 C 61 14 183/66 H 05/02/20 23:48 05/02/20 23:06 36.4 C L 58 L 18 167/63 H 05/02/20 22:30 58 L 05/02/20 19:49 36.4 C L 67 18 195/85 H 05/02/20 19:00 55 L 05/02/20 18:38 36.4 C L 70 22 215/63 H 05/02/20 18:36 36.4 C L 70 22 215/63 H 05/02/20 18:35 05/02/20 17:30 56 L 16 184/57 H 05/02/20 17:00 63 21 191/70 H 05/02/20 16:30 53 L 12 187/58 H 05/02/20 16:00 59 L 15 163/83 H 05/02/20 15:44 05/02/20 15:37 05/02/20 15:33 59 L 14 204/60 H 05/02/20 15:13 36.2 C L 57 L 18 210/69 H Pulse Ox Pulse Ox 05/03/20 10:00 94 05/03/20 09:54 94 05/03/20 09:49 94 05/03/20 09:44 92 05/03/20 09:39 96 05/03/20 09:34 95 05/03/20 09:29 96 05/03/20 09:24 94 05/03/20 09:19 90 05/03/20 09:14 92 05/03/20 09:12 94 05/03/20 08:31 96 05/03/20 08:08 99 05/03/20 08:00 05/03/20 04:53 05/03/20 04:04 05/03/20 03:54 95 05/02/20 23:48 96 05/02/20 23:06 91 05/02/20 22:30 05/02/20 19:49 97 05/02/20 19:00 05/02/20 18:38 94 05/02/20 18:36 94 05/02/20 18:35 97 05/02/20 17:30 97 05/02/20 17:00 96 05/02/20 16:30 97 05/02/20 16:00 98 05/02/20 15:44 97 05/02/20 15:37 88 L 05/02/20 15:33 91 05/02/20 15:13 91 Recovery Score Activity: Moves 4 extremities Respiration: Deep Breath/Cough Circulation: +/-20-49% PreAnes Value Consciousness: Arouseable (by name) Oxygen Saturation: O2 needed for >90% Post Anesthesia Score: 7 Discharge Sedation Level of Care: Fast Track Phase II Post Sedation Plan On clinical assessment, the patient appears to have tolerated the sedation without complications. Patient is recovering as anticipated. Patient will continue to be monitored by nursing and may be discharged when sedation discharge criteria are met per below protocol. Upon Completions of procedure up to 15 minutes continue every 5 minute vital signs and the P.A.R. score; then discharge to a Phase I or Fast Track to Phase II per the following guidelines: * Discharge Patient to appropriate Phase II area if PAR is 8 or greater or return to pre- procedure baseline. The post - procedure orders will be as directed. * If PAR score is less than 8 or not return to pre-procedure baseline then patient will follow Phase I monitoring till PAR is reached for Phase II. The Phase I may be done in procedure room or may call to secure a Phase I area. * If naloxone or flumazenil are used for reversal, hold in Phase I for continued monitoring from when last reversal dose was given for a minimum of 60 minutes or longer pending the nurse and/or physician discretion of patient condition before discharge to Phase II. Please call the Sedation Physician to re-evaluate and complete post-note for discharge to Phase II area. Do NOT discharge from procedure sedation or Phase 1 until post- sedation evaluation note is complete by procedure /sedation MD Sedation Discharge Instructions to be given to the patient at discharge to home.
--- NOTE | 2020-05-03 10:10 | Operative Report ---
Post Operative Report Pre & Post Diagnosis Operation Date: 05/03/20 08:00 Pre-Op Diagnosis: End Stage Renal Disease Post-Op Diagnosis: End Stage Renal Disease I identified the patient and participated in the time-out.: Yes Procedure Operation Date: 05/03/20 08:00 Actual Procedures p Perm Catheter Insertion Right Jugular Approach, Ultrasound Localization of Right Jugular Vein, Fluoroscopy for positioning, Moderate Sedation 0914-(Right) - Mal Cortes MD Surgeon Dr. Cortes Ceramics Machine Operator MD Frank Estimated Blood Loss 25 Findings Consistent with Post-Op Diagnosis Specimens None Anesthesia Type MAC Complications none Disposition Disposition: Recovery Room Indications ESRD Description of Procedure After the patient and site were correctly identified, the right neck and chest were sterilely prepped and draped. Local anesthesia was administered and multiple attempts were made to access the IJ under ultrasound guidance and to pass the wire from the IJ to the SVC under fluoroscopy. Ultimately we exchanged the J wire for a glidewire and were able to navigate the wire through to the IVC. At this point local was given on the chest wall and in the neck. A dual lumen catheter was tunneled from a chest wall incision subcutaneously to the IJ puncture site. The access was dilated over the wire and a peel away sheath inserted. The catheter was then advanced through the peel away sheath. The position of the catheter was then checked using fluoroscopy and a slight angle was noted. The J wire was inserted through one lumen of the catheter and the catheter adjusted over the wire. The completion fluoroscopy image showed the catheter in a good position. The patient tolerated the procedure well. Dr. Cortes was present and scrubbed for the entire procedure. I attest to the content of the Intraoperative Record and any orders documented therein. Any exceptions are noted below.
[2020-05-03] MEDS ORDERED: oxyCODONE/ACETAMINOPHEN 5mg/325mg TAB PO PRN (10:36)
[2020-05-03] MEDS: IRON SUCROSE 200 MG in 0.9 % SODIUM CHLORIDE 100 ML IV SCH (11:05)
--- NOTE | 2020-05-03 11:42 | Nephrology Consultation ---
Date of Consultation May 03, 2020 Assessment & Plan (1) ESRD (end stage renal disease): 85 y o F with advanced CKD, now ESRD, admitted to start on hemodialysis. She had tunneled dialysis catheter this morning and started on 1st dialysis treatment for 2 hours with low blood flow. She has been tolerating dialysis well, blood pressure relatively low but asymptomatic. --aim for minimum UF today as tolerated, plan for 3 hours dialysis tomorrow. --Epogen [id number] units x 1 dose today, start on Venofer 200 mg daily for 5 doses --start on renal vitamin daily, check phosphate, if elevated will start on binder --social service has already consulted by her primary communications media professor Dr. Christiano patton set up outpatient dialysis at [facility] --dose medications for GFR less than 10, left arm nephrology precaution for future AV fistula placement Will follow Thank you for allowing me to participate in your patient's care. It was a pleasure to see Mrs. Watson (2) Hyperkalemia: (3) Anemia: History of Present Illness Reason for Consultation: ESRD, Hyperkalemia, needs to start on HD. Attending Physician: Anneliese Vargas MD History of Present Illness Mrs. Watson is a 85 y o f with PMH stage 5 CKD, hypertension, coronary artery disease admitted to the hospital electively to start on hemodialysis. Nephrology consult was requested to manage hemodialysis. Electronic medical records are reviewed in detail during patient visit. Mrs Watson has history of stage 5 CKD secondary to hypertensive nephrosclerosis and microvascular disease, baseline creatinine lately has been staying around 3.5-4. She has been having persistent hyperkalemia as an outpatient and failed outpatient treatment including diuretics. She has also been having volume overload despite being on diuretics. She was electively admitted yesterday and had tunneled dialysis catheter this morning and started on 1st dialysis treatm ent. Past medical history also significant for left-sided hydronephrosis with ureteropelvic junction obstruction previously had stent placed. History of coronary artery disease with NSTEMI before. History of prior atrial fibrillation, chronic respiratory failure with hypoxia. Has hypertension, blood pressure has been relatively high. She was seen during dialysis, has been tolerating dialysis well, blood pressure relatively low but asymptomatic. She just had tunneled catheter placed, denies any pain, no bleeding from catheter site. Denies shortness of breath. Tolerating minimum UF. Allergies Allergy/AdvReac Type Severity Reaction Status Date / Time ampicillin Allergy Mild pruritus Verified 05/02/20 17:07 Bactrim Allergy Unknown felt like Verified 11/04/17 07:47 walking on eggs lisinopril Allergy Unknown Unknown Verified 05/02/20 17:07 reaction streptomycin Allergy Unknown Unknown Verified 05/02/20 17:07 reaction sulfamethoxazole AdvReac Intermediate "walking Verified 05/02/20 17:07 on eggs shells" feeling trimethoprim AdvReac Intermediate "walking Verified 05/02/20 17:07 on eggs shells" feeling Home Medications Medication Instructions Recorded Confirmed Type miscellaneous medical supply #1 ea 04/12/19 05/02/20 Rx carvedilol 25 mg tablet 25 mg PO BID #180 tab 04/24/19 05/02/20 Rx isosorbide mononitrate 60 mg 60 mg PO QAM #90 tab 05/12/19 05/02/20 Rx tablet,extended release 24 hr hydralazine 50 mg tablet 100 mg PO TID #560 tab 07/07/19 05/02/20 Rx clopidogrel 75 mg PO QAM 08/01/19 05/02/20 History ergocalciferol (vitamin D2) 1,250 50,000 unit PO MONTHLY #3 cap 01/01/20 05/02/20 Rx mcg (50,000 unit) capsule doxazosin [Cardura] 1 mg PO QAM 01/08/20 05/02/20 History magnesium oxide 400 mg PO QAM 01/08/20 05/02/20 History atorvastatin 80 mg tablet 80 mg PO QPM #90 tab 02/05/20 05/02/20 Rx ferrous sulfate 325 mg (65 mg 325 mg PO DAILY #30 tab 04/10/20 05/02/20 Rx iron) tablet torsemide 5 mg tablet 10 mg PO QAM tab 04/25/20 05/02/20 History aspirin [Aspir-Low] 81 mg PO DAILY 05/02/20 05/02/20 History Patient History Medical History Anemia chronic, baseline hgb 9-10 range per chart review CAD (coronary artery disease) IPMI s/p RCA stents x2 (2011) Chronic diastolic CHF (congestive heart failure) Chronic kidney disease, stage V [place] [facility]Dr. Alvarado), baseline creatinine 3.5 due to microvascular disease and impaired perfusion associated w/ pulmonary HTN/R heart failure Diabetes mellitus, type 2 diet managed Gout History of nephrolithiasis History of ventricular tachycardia RFA s/p RVOT VTACH (no nown recurrence since 2014 ablation per cardiology records LBBB (left bundle branch block) chronic dating back to at least 2017 stress test, echo done 08/2019 Lone atrial fibrillation Lone event (2013) d/t electrolyte abnormalities with no known recurrence therefore anticoagulation therapy "not required" per heart failure clinic records Myocardial Infarction 2011 Obesity Osteoarthritis Pulmonary hypertension Moderate to severe pulmonary hypertension. RVSP 59 mmHg. Sleep apnea CPAP + O2 2L HS Umbilical hernia Venous stasis dermatitis of both lower extremities Surgical History H/O cardiac catheterization 2006, 2011 (stents x2) History of appendectomy History of cataract surgery R/L History of cystoscopy cysto/stent exchange: 02/20/19: MAC sedation at [facility] cysto/stent exchange: 08/03/19: MAC sedation at [facility] History of tonsillectomy Hx of prior ablation treatment RFA S/P RVOT VTACH (NO RECURRENCE SINCE 2014 ABLATION PER CARDIO) Family History Unknown Hypertension Father , age 53 Lung cancer Mother , age 59 Cancer Other No family history of adverse response to anesthesia Denies family history of Kidney disease Social History Smoking Status: Never smoker Second Hand Exposure: No; Hx Alcohol Use: No Hx Substance Use: No Preferred Language: Estonian Communication Ability: Effective Visual Impairment: No Limitations Hearing Ability: Normal Temporary Administrative Assistant Required: No Beliefs That Will Affect Care: None marital status: / Current Living Situation: Family Current Living Situation Comment: Lives with special needs daughter How many Children do You have: 3 other: 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; 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 Feels Safe at Home: Yes Safety Concerns: Feels Safe At This Time Childhood Exposure to Second-Hand Smoke: No Dental Care, Regularly: No Physical Activity Frequency: Does not Exercise Seatbelt Use: always Sunscreen Use: Yes Assistive Devices: CPAP, Oxygen - Continuous and Walker Review of Systems Review of Systems: All systems reviewed & are unremarkable except as noted in Subjective Physical Exam Constitutional: WD/WN, vitals as above well nourished, + ill appearing and + edematous; no acute distress Eyes: PERRL, conjunctivae normal, anicteric sclerae ENMT: external ear and nose normal, oropharynx normal Ears: no hearing impairment Neck: trachea midline Respiratory: no cough Auscultation: + diminished lung sounds and + rales; no crackles and no wheezes Cardiovascular: RRR, no murmur, no edema Gastrointestinal (Abdomen): normal bowel sounds, soft, nontender, no hepatosplenomegaly Percussion/Palpation: abdomen nontender, no guarding and abdomen not rigid Musculoskeletal: Extremities: extremities normal to inspection Gait: normal gait Skin: no rashes, warm and dry Neurologic: + focal motor deficit and awake; not confused Psychiatric: A+Ox3, euthymic affect Results & Data ([facility]) Vital Signs (Past 12 Hours) Vital Signs Temp Pulse Pulse Pulse Resp BP BP 05/03/20 11:20 48 L 102/43 L 05/03/20 11:00 46 L 93/43 L 05/03/20 10:40 49 L 97/43 L 05/03/20 10:30 36.5 C 52 L 52 L 117/42 L 05/03/20 10:10 56 L 16 110/41 L 05/03/20 10:05 55 L 16 122/58 L 05/03/20 10:00 52 L 16 112/46 L 05/03/20 09:54 56 L 16 113/45 L 05/03/20 09:49 61 16 115/52 L 05/03/20 09:44 52 L 16 117/48 L 05/03/20 09:39 55 L 16 134/47 L 05/03/20 09:34 58 L 16 123/46 L 05/03/20 09:29 57 L 16 133/56 L 05/03/20 09:24 52 L 16 125/57 L 05/03/20 09:19 65 16 132/64 05/03/20 09:14 54 L 16 135/52 L 05/03/20 09:12 60 16 200/72 H 05/03/20 08:31 36.8 C 63 16 196/66 H 05/03/20 08:08 36.6 C 107 H 18 183/58 H 05/03/20 08:00 56 L 05/03/20 04:53 180/60 H 05/03/20 04:04 180/70 H 05/03/20 03:54 36.5 C 61 14 183/66 H 05/02/20 23:48 Pulse Ox 05/03/20 11:20 05/03/20 11:00 05/03/20 10:40 05/03/20 10:30 05/03/20 10:10 95 05/03/20 10:05 95 05/03/20 10:00 94 05/03/20 09:54 94 05/03/20 09:49 94 05/03/20 09:44 92 05/03/20 09:39 96 05/03/20 09:34 95 05/03/20 09:29 96 05/03/20 09:24 94 05/03/20 09:19 90 05/03/20 09:14 92 05/03/20 09:12 94 05/03/20 08:31 96 05/03/20 08:08 99 05/03/20 08:00 05/03/20 04:53 05/03/20 04:04 05/03/20 03:54 95 05/02/20 23:48 96 PG Care Time/CCT Total # of Minutes Spent Total Time Spent with Patient: Total time spent is greater than 50% in coordination of care (as documented) at patient's floor/unit and/or counseling patient: Coding Level of Care Code 12398 Inpt Consult Level 5 Diagnoses ESRD (end stage renal disease) N18.6 Hyperkalemia E87.5 Anemia D64.9
[2020-05-03] MEDS: ASPIRIN 81 MG ECTAB PO SCH (12:39)
[2020-05-03] MEDS: hydrALAZINE TAB 50 MG TAB PO SCH ×3 (12:39→20:42)
[2020-05-03] MEDS: carvediloL 25 MG TAB PO SCH ×2 (12:39→20:40)
[2020-05-03] MEDS: HEPARIN SOD 5,000 UNIT/0.5 ML VIAL SQ SCH ×2 (12:40→20:41)
[2020-05-03] MEDS: CLOPIDOGREL BISULFATE 75 MG TAB PO SCH (12:40)
[2020-05-03] MEDS: DOXAZOSIN MESYLATE 1 MG TAB PO SCH ×2 (12:41→14:01)
[2020-05-03] MEDS: CLINDAMYCIN 600 MG/54 ML BAG IV SCH (12:43)
--- NOTE | 2020-05-03 13:57 | Hospitalist Progress Note ---
Date of Service May 03, 2020 Assessment & Plan (1) Hyperkalemia: 2nd to CKD stage 5. Worsening K levels despite attempts at low-K diet, outpatient diuretic management, etc. Plan - s/p Ca, dextrose/insulin in ER. kayexalate 20gm PO x 1 now. given presence of volume overload - bumex 2mg IV x 1. BMPs q6h. Telemetry monitoring. could consider sodium bicarbonate but defer for now. Dr Strickland from [facility] consulting 2-12 had HD today will go for HD again tomorrow, per nursing (2) Chronic kidney disease, stage V: CrCl 15 or less x ~ 1 year. Refractory hyperkalemia for several weeks. Volume overload issues as well. Plan - consult nephrology, [facility], Dr Alvarado for HD management. consult [facility], Dr Cortes, for HD catheter placement. HD to be initiated tomorrow following catheter insertion. NPO after MN. 2-12 HD was tolerated well. Pt endorsing lethargy, otherwise no complaints (3) Pulmonary edema: volume overload/pulm edema clinically & radiographically in setting of CKD stage 5 and chronic diastolic CHF. bumex 2mg IV x 1. Consider additional 1mg x 1 tonight if needed. fortunately O2 sats are wnl and she is having minimal symptoms from the pulm edema. (4) Hypernatremia: Ongoing since September 2019. Mild intravascular volume depletion chronically from diuretic use, but clearly she is total body volume overloaded at this time. Defer on hypotonic fluids. (5) Hyperlipidemia: Cont statin. (6) Hypertension: Uncontrolled. Records suggest significant element of white coat HTN, and patient endorses such, but systolics are very high. Continue all home meds. hydralazine IV prn. Dialysis treatments and volume removal will help the BPs as well. Bumex tonight. Adjust PO meds as needed. (7) CAD (coronary artery disease), [place] coronary artery: Cont asa, plavix, coreg, statin. No ischemic symptoms at this time. (8) Pulmonary HTN: severe based on echo 2019. cont night-time O2. Pulm HTN likely contributing to severe LE edema. (9) Hydronephrosis of left kidney: s/p stent replacement, 01/2020. Follows with [facility]. No symptoms at this time. (10) History of ventricular tachycardia: noted. s/p ablation in the past with no recurrence since. cont BB. (11) Lone atrial fibrillation: noted. Cont coreg. not on chronic anticoagulation. (12) Venous stasis dermatitis of both lower extremities: (13) Sleep apnea: CPAP/O2 hs. (14) Anemia: 2nd to CKD stage 5. last Fe studies 08/2019. check Fe studies in am. defer Fe management to nephrology. (15) LBBB (left bundle branch block): chronic (16) DVT prophylaxis: heparin SC 5000 BID Admission and Anticipated Discharge Date Admission Date: May 02, 2020 Subjective Patient going to HD catheter placement followed by dialysis. Saw patient after dialysis. She still makes some urine, no dysuria or hematuria. No pain at catheter site. Endorses LE edema which is chronic and not worse than baseline. She has a good appetite. Her only current complaint is lethargy. Review of Systems Constitutional: + fatigue; no fever, no chills, no weakness, no anorexia, no weight loss and no weight gain Ear, Nose, Mouth, Throat: no nasal congestion, no sore throat and no dysphagia Respiratory: no cough and no dyspnea Cardiovascular: no chest pain, no dyspnea on exertion, no orthopnea and no palpitations Gastrointestinal: no abdominal pain, no nausea, no vomiting, no hematemesis, no dysphagia, no constipation, no diarrhea/loose stools, no blood in stools and no melena Genitourinary: no dysuria, no urinary frequency, no hematuria and no flank pain Musculoskeletal: no back pain, no joint pain, no myalgia and no muscle weakness Integumentary: no rash, no lesions, no skin ulcer, no erythema, no dry skin and no pruritus Neurologic: no falls, no localized weakness, no generalized weakness, no numbness, no paresthesia, no tremor(s) and no headache(s) Psychiatric: no depression, no suicidal ideation, no homicidal ideation and no anxiety Endocrine: no cold intolerance and no heat intolerance Hematologic / Lymphatic: no easy bleeding and no easy bruising Physical Exam Constitutional: well developed and well nourished; no acute distress Eyes: PERRL, conjunctivae normal, anicteric sclerae ENMT: Mouth: oral mucous membranes not dry Respiratory: normal respiratory effort; no respiratory distress and no labored breathing Auscultation: lungs clear to auscultation bilaterally; no crackles, no rales, no rhonchi and no wheezes Cardiovascular: Rate/Rhythm: regular rate and regular rhythm Heart Sounds: no murmur and no cardiac rub Vessels: normal peripheral pulses and radial pulses present; no JVD Extremities: + edema Gastrointestinal (Abdomen): Inspection/Auscultation: abdomen normal to inspection and normal bowel sounds; abdomen not distended Percussion/Palpation: abdomen soft; abdomen nontender, no guarding, abdomen not rigid and no hepatosplenomegaly Musculoskeletal: Head/Neck/Chest: normocephalic and head atraumatic Spine: no cervical spinal tenderness, no cervical muscular tenderness, no thoracic spinal tenderness and no lumbar spinal tenderness Skin: no rashes, warm and dry Neurologic: CN's II-XI intact bilaterally and moves all extremities Motor/Sensory: no tremor and no sensory deficit Psychiatric: Orientation: alert, oriented to person, oriented to place and oriented to time Apperance: appropriately groomed; not disheveled Affect: euthymic affect; no anxious affect and no tearful affect Genitourinary: no CVA tenderness no Owen catheter Results & Data Results & Data ([facility]) Vital Signs (Past 12 Hours) Vital Signs Temp Pulse Pulse Pulse Resp BP BP 05/03/20 12:49 36.5 C 61 18 157/55 H 05/03/20 12:42 36.3 C L 52 L 124/49 L 05/03/20 12:32 52 L 124/49 L 05/03/20 12:20 52 L 111/46 L 05/03/20 12:00 50 L 101/43 L 05/03/20 11:40 49 L 105/39 L 05/03/20 11:20 48 L 102/43 L 05/03/20 11:00 46 L 93/43 L 05/03/20 10:40 49 L 97/43 L 05/03/20 10:30 36.5 C 52 L 52 L 117/42 L 05/03/20 10:10 56 L 16 110/41 L 05/03/20 10:05 55 L 16 122/58 L 05/03/20 10:00 52 L 16 112/46 L 05/03/20 09:54 56 L 16 113/45 L 05/03/20 09:49 61 16 115/52 L 05/03/20 09:44 52 L 16 117/48 L 05/03/20 09:39 55 L 16 134/47 L 05/03/20 09:34 58 L 16 123/46 L 05/03/20 09:29 57 L 16 133/56 L 05/03/20 09:24 52 L 16 125/57 L 05/03/20 09:19 65 16 132/64 05/03/20 09:14 54 L 16 135/52 L 05/03/20 09:12 60 16 200/72 H 05/03/20 08:31 36.8 C 63 16 196/66 H 05/03/20 08:08 36.6 C 107 H 18 183/58 H 05/03/20 08:00 56 L 05/03/20 04:53 180/60 H 05/03/20 04:04 180/70 H 05/03/20 03:54 36.5 C 61 14 183/66 H Pulse Ox 05/03/20 12:49 96 05/03/20 12:42 05/03/20 12:32 05/03/20 12:20 05/03/20 12:00 05/03/20 11:40 05/03/20 11:20 05/03/20 11:00 05/03/20 10:40 05/03/20 10:30 05/03/20 10:10 95 05/03/20 10:05 95 05/03/20 10:00 94 05/03/20 09:54 94 05/03/20 09:49 94 05/03/20 09:44 92 05/03/20 09:39 96 05/03/20 09:34 95 05/03/20 09:29 96 05/03/20 09:24 94 05/03/20 09:19 90 05/03/20 09:14 92 05/03/20 09:12 94 05/03/20 08:31 96 05/03/20 08:08 99 05/03/20 08:00 05/03/20 04:53 05/03/20 04:04 05/03/20 03:54 95 Laboratory Results Abnormal lab results 05/02/20 05/02/20 05/02/20 Range/Units 15:30 15:30 18:59 WBC (4.8-10.8) K/uL RBC 3.35 L (4.2-5.4) M/uL Hgb 10.2 L (12.0-16.0) g/dL Hct 33.8 L (37-47) % MCV 100.9 H (80-100) fL MCHC 30.2 L (32-36) g/dL RDW Std Deviation 60.1 H (36.4-46.3) fL RDW Coeff of Nicolasa 16.1 H (11.5-14.5) % Plt Count 105 L (130-400) K/uL MPV 11.0 H (7.4-10.4) fL Sodium 148 H 147 H (136-145) mmol/L Potassium 6.3 H* 6.1 H* (3.5-5.1) mmol/L Chloride 117 H 117 H (98-107) mmol/L BUN 85 H 84 H (7-18) mg/dl Creatinine 3.55 H 3.67 H (0.6-1.2) mg/dl BUN/Creatinine Ratio 24.1 H 22.9 H (10-20) Glucose 115 H 124 H (70-99) mg/dl Calcium (8.5-10.1) mg/dl Transferrin (200-360) mg/dl Urine Appearance (Clear) Urine Protein (Negative) Urine Blood (Negative) Ur Leukocyte Esterase (Negative) Urine WBC (Auto) (0-5) /hpf Urine RBC (Auto) (0-4) /hpf U Epithel Cells (Auto) (0-5) /lpf Urine Bacteria (Auto) (Negative) Urine Yeast (None Prsent) Hep Bs Antibody, Quant (>or=10mIU/mL Immune) mIU/mL 05/02/20 05/03/20 05/03/20 Range/Units 21:24 00:08 06:21 WBC (4.8-10.8) K/uL RBC (4.2-5.4) M/uL Hgb (12.0-16.0) g/dL Hct (37-47) % MCV (80-100) fL MCHC (32-36) g/dL RDW Std Deviation (36.4-46.3) fL RDW Coeff of Nicolasa (11.5-14.5) % Plt Count (130-400) K/uL MPV (7.4-10.4) fL Sodium 149 H 147 H (136-145) mmol/L Potassium 6.3 H* 5.6 H (3.5-5.1) mmol/L Chloride 117 H 117 H (98-107) mmol/L BUN 84 H 82 H (7-18) mg/dl Creatinine 3.54 H 3.53 H (0.6-1.2) mg/dl BUN/Creatinine Ratio 23.8 H 23.3 H (10-20) Glucose 117 H (70-99) mg/dl Calcium 8.3 L (8.5-10.1) mg/dl Transferrin 176 L (200-360) mg/dl Urine Appearance Cloudy A (Clear) Urine Protein 3+ H (Negative) Urine Blood Trace H (Negative) Ur Leukocyte Esterase 2+ H (Negative) Urine WBC (Auto) >30 H (0-5) /hpf Urine RBC (Auto) 10-30 H (0-4) /hpf U Epithel Cells (Auto) >30 H (0-5) /lpf Urine Bacteria (Auto) 1+ H (Negative) Urine Yeast Budding w/ Hyphae A (None Prsent) Hep Bs Antibody, Quant (>or=10mIU/mL Immune) mIU/mL 05/03/20 05/03/20 Range/Units 06:21 08:13 WBC 4.33 L (4.8-10.8) K/uL RBC 3.12 L (4.2-5.4) M/uL Hgb 9.5 L (12.0-16.0) g/dL Hct 31.6 L (37-47) % MCV 101.3 H (80-100) fL MCHC 30.1 L (32-36) g/dL RDW Std Deviation 61.2 H (36.4-46.3) fL RDW Coeff of Nicolasa 16.4 H (11.5-14.5) % Plt Count 111 L (130-400) K/uL MPV 11.4 H (7.4-10.4) fL Sodium (136-145) mmol/L Potassium (3.5-5.1) mmol/L Chloride (98-107) mmol/L BUN (7-18) mg/dl Creatinine (0.6-1.2) mg/dl BUN/Creatinine Ratio (10-20) Glucose (70-99) mg/dl Calcium (8.5-10.1) mg/dl Transferrin (200-360) mg/dl Urine Appearance (Clear) Urine Protein (Negative) Urine Blood (Negative) Ur Leukocyte Esterase (Negative) Urine WBC (Auto) (0-5) /hpf Urine RBC (Auto) (0-4) /hpf U Epithel Cells (Auto) (0-5) /lpf Urine Bacteria (Auto) (Negative) Urine Yeast (None Prsent) Hep Bs Antibody, Quant < 3.10 L (>or=10mIU/mL Immune) mIU/mL Medications Administered Current Inpatient Medications Acetaminophen (Acetaminophen 325 Mg Tab) 650 mg PO Q4H PRN PRN Reason: Pain or Fever Stop: 06/01/20 18:34 Aspirin (Aspirin 81 Mg Ectab) 81 mg PO DAILY [facility] Stop: 06/02/20 08:59 Last Admin: 05/03/20 12:39 Dose: Not Given Documented by: Atorvastatin Calcium (Atorvastatin 40 Mg Tab) 80 mg PO QPM [facility] Stop: 06/01/20 20:59 Last Admin: 05/02/20 21:02 Dose: 80 mg Documented by: Carvedilol (Carvedilol 25 Mg Tab) 25 mg PO BID [facility] Stop: 06/01/20 20:59 Last Admin: 05/03/20 12:39 Dose: Not Given Documented by: Clopidogrel Bisulfate (Clopidogrel Bisulfate 75 Mg Tab) 75 mg PO QAM [facility] Stop: 06/02/20 08:59 Last Admin: 05/03/20 12:40 Dose: Not Given Documented by: Doxazosin Mesylate (Doxazosin Mesylate 1 Mg Tab) 1 mg PO QAM [facility] Stop: 06/02/20 08:59 Last Admin: 05/03/20 14:01 Dose: 1 mg Documented by: Heparin Sodium (Porcine) (Heparin Sod 5,000 Unit/0.5 Ml Vial) 5,000 units SQ Q12 [facility] Stop: 06/01/20 20:59 Last Admin: 05/03/20 12:40 Dose: Not Given Documented by: Hydralazine HCl (Hydralazine Tab 50 Mg Tab) 100 mg PO TID [facility] Stop: 06/01/20 20:59 Last Admin: 05/03/20 14:02 Dose: 100 mg Documented by: Hydralazine HCl (Hydralazine Hcl 20 Mg/Ml Vial) 5 mg IV Q8H PRN PRN Reason: systolic BP > 180 Stop: 06/01/20 18:34 Last Admin: 05/03/20 04:11 Dose: 5 mg Documented by: Iron Sucrose 200 mg/ Sodium (Chloride) 110 mls @ 220 mls/hr IV DAILY [facility] Stop: 05/07/20 09:59 Last Infusion: 05/03/20 12:41 Dose: Infused Documented by: Clindamycin Phosphate (Cleocin) 600 mg in 54 mls @ 100 mls/hr IV PREOP [facility] Stop: 05/04/20 09:59 Last Admin: 05/03/20 12:43 Dose: Not Given Documented by: Isosorbide Mononitrate (Isosorbide [place] Extended Rel 60 Mg Tabcr) 60 mg PO QAM [facility] Stop: 06/02/20 08:59 Last Admin: 05/03/20 14:01 Dose: 60 mg Documented by: Nitroglycerin (Nitroglycerin Sl 0.4 Mg/Tab Tab) 0.4 mg SL UD PRN PRN Reason: Chest Pain Stop: 06/01/20 18:34 Ondansetron HCl (Ondansetron Inj 2 Mg/Ml 2 Ml Vial) 4 mg IV Q6H PRN PRN Reason: Nausea Stop: 06/01/20 18:34 Oxycodone/Acetaminophen (Oxycodone/Acetaminophen 5mg/325mg Tab) 1 tab PO Q4H PRN PRN Reason: Moderate Pain Stop: 05/17/20 10:35 Vitamin B Complex/Folic Acid (Nephrocaps) 1 cap PO QAM [facility] Stop: 06/02/20 08:59 Last Admin: 05/03/20 14:01 Dose: 1 cap Documented by: PG Care Time/CCT Total # of Minutes Spent Total Time Spent with Patient: Total time spent is greater than 50% in coordination of care (as documented) at patient's floor/unit and/or counseling patient: Coding Level of Care Code 63560 Subseq Hosp Care Lvl 2 Diagnoses Hyperkalemia E87.5 Chronic kidney disease, stage V N18.5 Pulmonary edema J81.1 Hypernatremia E87.0 Hyperlipidemia E78.5 Hyperlipidemia type: unspecified Hypertension I10 CAD (coronary artery disease), [place] coronary artery I25.10 Pulmonary HTN I27.20 Hydronephrosis of left kidney N13.30 History of ventricular tachycardia Z86.79 Lone atrial fibrillation I48.91 Venous stasis dermatitis of both lower extremities I87.2 Sleep apnea G47.30 Anemia D64.9 LBBB (left bundle branch block) I44.7 DVT prophylaxis Z29.9 (1) Hyperlipidemia Hyperlipidemia type: unspecified Qualified Code(s): E78.5 - Hyperlipidemia, unspecified
[2020-05-03] MEDS: ISOSORBIDE MONO EXTENDED REL 60 MG TABCR PO SCH ×2 (14:01)
[2020-05-03] MEDS: NEPHROCAPS PO SCH (14:01)
[2020-05-03] MEDS: ATORVASTATIN 40 MG TAB PO SCH (20:41)
[2020-05-04 07:27] LABS: Hematocrit (blood only) 30.3 % (37-47); Hemoglobin 8.8 g/dL (12.0-16.0); Mean Corpuscular Hemoglobin 30.2 pg (25-34); Mean Corpuscular Volume 104.1 fL (80-100); Mean Platelet Volume 11.5 fL (7.4-10.4); Platelet Count 98 K/uL (130-400); RDW Coefficient of Variation 16.4 % (11.5-14.5); RDW Standard Deviation 62.6 fL (36.4-46.3); Red Blood Count 2.91 M/uL (4.2-5.4); White Blood Count 6.06 K/uL (4.8-10.8)
[2020-05-04 07:28] LABS: Platelet Estimate Decreased (Normal)
[2020-05-04 07:33] LABS: Albumin Level 2.7 gm/dl (3.4-5.0); BUN Creatinine Ratio 19.9 (10-20); Calcium 8.4 mg/dl (8.5-10.1); Creatinine Clr Calc Pharmacy 14.5 ml/min; Est GFR (African American) 14.3; Est GFR (Non-African American) 12.3; Phosphorus 5.1 mg/dl (2.5-4.9); Potassium 5.2 mmol/L (3.5-5.1)
[2020-05-04] MEDS: IRON SUCROSE 200 MG in 0.9 % SODIUM CHLORIDE 100 ML IV SCH (09:25)
[2020-05-04] MEDS: hydrALAZINE TAB 50 MG TAB PO SCH ×3 (12:49→21:14)
[2020-05-04] MEDS: NEPHROCAPS PO SCH (12:49)
[2020-05-04] MEDS: carvediloL 25 MG TAB PO SCH ×2 (12:50→21:14)
[2020-05-04] MEDS: ISOSORBIDE MONO EXTENDED REL 60 MG TABCR PO SCH (12:50)
[2020-05-04] MEDS: ASPIRIN 81 MG ECTAB PO SCH (12:50)
[2020-05-04] MEDS: CLOPIDOGREL BISULFATE 75 MG TAB PO SCH (12:50)
[2020-05-04] MEDS: DOXAZOSIN MESYLATE 1 MG TAB PO SCH (12:50)
[2020-05-04] MEDS: HEPARIN SOD 5,000 UNIT/0.5 ML VIAL SQ SCH ×2 (12:51→21:13)
--- NOTE | 2020-05-04 13:02 | Hospitalist Progress Note ---
Date of Service May 04, 2020 Assessment & Plan (1) ESRD (end stage renal disease): progressive CKD stage 5 with refractory hyperkalemia & volume overload. s/p HD catheter placement yesterday. s/p HD sessions yesterday & today. appreciate nephrology assistance. (2) Encephalopathy acute: 2nd to uremia. 2nd to respiratory acidosis/hypercarbia. can't rule out sedation for HD catheter placement yesterday (toxic effects). check TSH, B12 in am. ammonia level today wnl. supportive care. avoid benzos. (3) Chronic kidney disease, stage V: CrCl 15 or less x ~ 1 year. Refractory hyperkalemia for several weeks. Volume overloaded at admission as well. POD #1 s/p HD catheter placement by Dr Cortes. s/p HD session 05/03 and again today. Mild oozing of blood from permcath site today - resolved with direct pressure. H/H post-bleeding acceptable. Repeat CBC, BMP am. Appreciate nephrology assistance. (4) Hyperkalemia: 2nd to CKD stage 5/development of ESRD. Just about resolved s/p multiple interventions at admission and serial HD sessions. BMP am. (5) Pulmonary edema: volume overload/pulm edema clinically & radiographically in setting of CKD stage 5 and chronic diastolic CHF. improving s/p serial HD sessions. hold diuretics. (6) Hypernatremia: Ongoing since September 2019. Mild intravascular volume depletion chronically from diuretic use. Would not Rx with IV fluids given ESRD. (7) Hyperlipidemia: Cont statin. (8) Hypertension: Uncontrolled and labile. 2nd to essential HTN, volume overload, development of ESRD. Records suggest significant element of white coat HTN as well. Continue all home meds. hydralazine IV prn. Dialysis treatments and volume removal will help the BPs as well. (9) CAD (coronary artery disease), [place] coronary artery: Cont asa, plavix, coreg, statin. No ischemic symptoms at this time. (10) Pulmonary HTN: severe based on echo 2019. cont night-time O2. Pulm HTN likely contributing to severe LE edema. (11) Hydronephrosis of left kidney: s/p stent replacement, 01/2020. [place]s [place] [facility]. No symptoms at this time. (12) History of ventricular tachycardia: noted. s/p ablation in the past with no recurrence since. cont BB. (13) Lone atrial fibrillation: noted. Cont coreg. not on chronic anticoagulation. (14) Venous stasis dermatitis of both lower extremities: stable (15) Sleep apnea: CPAP/O2 hs. did not have such last night which resulted in mild CO2 retention. CPAP applied this afternoon for the hypercarbia. (16) Anemia: 2nd to CKD stage 5. can't rule out thyroid disease or b12/folate def given the macrocytosis. last Fe studies 08/2019 and then again this admission. venofer x 5 doses per nephrology. check TSH, B12, folate in am. given mild blood loss via catheter site today I repeated H/H this afternoon -- stable. recheck cbc am. (17) LBBB (left bundle branch block): chronic (18) DVT prophylaxis: heparin SC 5000 BID care d/w son, Griffin Watson, this evening. Admission and Anticipated Discharge Date Admission Date: May 02, 2020 Subjective called by nursing staff after patient arrived back to floor from dialysis that permcath site was bleeding. I asked staff to continue holding pressure to cath site in right upper chest. by the time of my arrival (about 5 minutes after the phone call) most of the bleeding had stopped. patient was confused - didn't remember "anything from yesterday" and she reports having slept through her 3-hour dialysis treatment today. couldn't tell me day of the week. staff report fair appetite. staff also report noncompliance with CPAP overnight. tele overnight - NSR. Review of Systems Constitutional: + fatigue and + anorexia Respiratory: no dyspnea Cardiovascular: no chest pain Gastrointestinal: + nausea; no abdominal pain Physical Exam Constitutional: + altered mental status (mild); + not appropriately hydrated ENMT: Mouth: + dry oral mucous membranes Respiratory: no respiratory distress Auscultation: + diminished lung sounds (bases); no crackles and no wheezes Cardiovascular: Rate/Rhythm: regular rate and regular rhythm Heart Sounds: normal S1, normal S2 and + murmur (2/6 LSB) Vessels: posterior tibial pulses present and dorsalis pedis pulses present; no JVD Extremities: + edema (lymphedema b/l - maybe slightly better from previous exam ) and + vascular access device (right tunneled HD catheter site - dried blood, scant oozing, no hematoma) Gastrointestinal (Abdomen): normal bowel sounds, soft, nontender, no hepatosplenomegaly Percussion/Palpation: + hernia (umbilical - reducible ) Skin: stasis dermatitis b/l shins, worse on left; no cellulitis Neurologic: Motor/Sensory: + asterixis (slight ) Psychiatric: Orientation: alert, oriented to person and oriented to place; + not oriented to time Results & Data Results & Data ([facility]) Vital Signs (Past 12 Hours) Vital Signs Temp Pulse Pulse Pulse Pulse Resp BP 05/04/20 12:10 36.8 C 71 71 138/85 05/04/20 12:00 69 157/58 H 05/04/20 11:40 70 149/57 H 05/04/20 11:20 68 144/66 H 05/04/20 11:00 67 139/53 L 05/04/20 10:40 64 141/29 H 05/04/20 10:20 54 L 129/44 L 05/04/20 10:00 54 L 134/45 L 05/04/20 09:40 57 L 144/58 H 05/04/20 09:20 55 L 146/50 H 05/04/20 09:11 66 172/55 H 05/04/20 09:05 36.9 C 67 05/04/20 08:00 59 L 05/04/20 07:48 36.9 C 68 19 05/04/20 03:22 37 C 60 18 BP Pulse Ox 05/04/20 12:10 138/85 05/04/20 12:00 05/04/20 11:40 05/04/20 11:20 05/04/20 11:00 05/04/20 10:40 05/04/20 10:20 05/04/20 10:00 05/04/20 09:40 05/04/20 09:20 05/04/20 09:11 05/04/20 09:05 05/04/20 08:00 05/04/20 07:48 158/58 H 96 05/04/20 03:22 161/58 H 95 Laboratory Results Laboratory Results - last 24 hr 05/04/20 05/04/20 06:44 06:44 WBC 6.06 RBC 2.91 L Hgb 8.8 L Hct 30.3 L MCV 104.1 H MCH 30.2 MCHC 29.0 L RDW Std Deviation 62.6 H RDW Coeff of Nicolasa 16.4 H Plt Count 98 L MPV 11.5 H Platelet Estimate Decreased L Sodium 148 H Potassium 5.2 H Chloride 115 H Carbon Dioxide 29 Anion Gap 4.0 BUN 65 H Creatinine 3.26 H Est Cr Clr Drug Dosing 14.5 Est GFR ( Amer) 14.3 Est GFR (Non-Af Amer) 12.3 BUN/Creatinine Ratio 19.9 Glucose 80 Calcium 8.4 L Phosphorus 5.1 H Albumin 2.7 L PG Care Time/CCT Total # of Minutes Spent Total Time Spent with Patient: Total time spent is greater than 50% in coordination of care (as documented) at patient's floor/unit and/or counseling patient: Coding Level of Care Code 06805 Subseq Hosp Care Lvl 3 Diagnoses ESRD (end stage renal disease) N18.6 Encephalopathy acute G93.40 Chronic kidney disease, stage V N18.5 Hyperkalemia E87.5 Pulmonary edema J81.1 Hypernatremia E87.0 Hyperlipidemia E78.5 Hyperlipidemia type: unspecified Hypertension I10 CAD (coronary artery disease), [place] coronary artery I25.10 Pulmonary HTN I27.20 Hydronephrosis of left kidney N13.30 History of ventricular tachycardia Z86.79 Lone atrial fibrillation I48.91 Venous stasis dermatitis of both lower extremities I87.2 Sleep apnea G47.30 Anemia D64.9 LBBB (left bundle branch block) I44.7 DVT prophylaxis Z29.9 (1) Hyperlipidemia Hyperlipidemia type: unspecified Qualified Code(s): E78.5 - Hyperlipidemia, unspecified
[2020-05-04 13:15] LABS: Base Excess VBG 3.5 mEq/L; Oxygen Saturation VBG 84.7 %; pH VBG 7.31 (7.36-7.41)
[2020-05-04 13:22] LABS: Hematocrit (blood only) 30.8 % (37-47); Hemoglobin 9.1 g/dL (12.0-16.0); Mean Corpuscular Hemoglobin 30.7 pg (25-34); Mean Corpuscular Hgb Conc 29.5 g/dL (32-36); Mean Corpuscular Volume 104.1 fL (80-100); Mean Platelet Volume 11.5 fL (7.4-10.4); Platelet Count 89 K/uL (130-400); RDW Coefficient of Variation 16.1 % (11.5-14.5); RDW Standard Deviation 61.7 fL (36.4-46.3); Red Blood Count 2.96 M/uL (4.2-5.4); White Blood Count 7.01 K/uL (4.8-10.8)
[2020-05-04] MEDS: CLINDAMYCIN 600 MG/54 ML BAG IV SCH (14:42)
--- NOTE | 2020-05-04 14:58 | Nephrology Progress Note ---
Date of Service May 04, 2020 Assessment & Plan (1) ESRD (end stage renal disease): TDC placed by Dr. Cortes 05/03. First HD treatment completed yesterday without complications. Orders for treatment today entered into EMR and reviewed with HD nurse. Next anticipated HD Wednesday. BP and volume status acceptable. Qb acceptable. Repeat metabolic profile tomorrow AM. Nephrovite daily. Medications appropriate for kidney function. HD at [facility] to be arrange for post discharge. (2) Hyperkalemia: Adequate clearance with HD. Low K diet. Repeat metabolic profile tomorrow AM. (3) Anemia: Epogen 40030 units x 1 dose provided on 05/03 Venofer 200 mg daily x 5 doses ordered Admission and Anticipated Discharge Date Admission Date: May 02, 2020 Subjective No acute events overnight. Judi was seen and evaluated during HD this AM. No complications with treatment. Review of Systems Review of Systems: All systems reviewed & are unremarkable except as noted in HPI & below Physical Exam Constitutional: well developed; no acute distress Eyes: no scleral abnormality and no corneal abnormality ENMT: Mouth: no oral mucosal abnormality and oral mucous membranes not dry Neck: normal visual inspection and trachea midline IJ HD catheter Respiratory: normal respiratory effort Auscultation: lungs clear to auscultation bilaterally Cardiovascular: Rate/Rhythm: regular rate Heart Sounds: normal S1 and normal S2 Extremities: no edema Musculoskeletal: Extremities: no cyanosis and no clubbing Skin: normal turgor; no lesions Neurologic: Motor/Sensory: no tremor and no asterixis Psychiatric: Eye Contact: + fair eye contact Affect: + depressed affect Results & Data ([facility]) Vital Signs (Past 12 Hours) Vital Signs Temp Pulse Pulse Pulse Pulse Resp BP 05/04/20 13:05 37.0 C 71 22 05/04/20 12:10 36.8 C 71 71 138/85 05/04/20 12:00 69 157/58 H 05/04/20 11:40 70 149/57 H 05/04/20 11:20 68 144/66 H 05/04/20 11:00 67 139/53 L 05/04/20 10:40 64 141/29 H 05/04/20 10:20 54 L 129/44 L 05/04/20 10:00 54 L 134/45 L 05/04/20 09:40 57 L 144/58 H 05/04/20 09:20 55 L 146/50 H 05/04/20 09:11 66 172/55 H 05/04/20 09:05 36.9 C 67 05/04/20 08:00 59 L 05/04/20 07:48 36.9 C 68 19 05/04/20 03:22 37 C 60 18 BP BP Pulse Ox 05/04/20 13:05 170/62 H 97 05/04/20 12:10 138/85 05/04/20 12:00 05/04/20 11:40 05/04/20 11:20 05/04/20 11:00 05/04/20 10:40 05/04/20 10:20 05/04/20 10:00 05/04/20 09:40 05/04/20 09:20 05/04/20 09:11 05/04/20 09:05 05/04/20 08:00 05/04/20 07:48 158/58 H 96 05/04/20 03:22 161/58 H 95 Laboratory Results Laboratory Results - last 24 hr 05/04/20 05/04/20 05/04/20 06:44 06:44 13:06 WBC 6.06 7.01 RBC 2.91 L 2.96 L Hgb 8.8 L 9.1 L Hct 30.3 L 30.8 L MCV 104.1 H 104.1 H MCH 30.2 30.7 MCHC 29.0 L 29.5 L RDW Std Deviation 62.6 H 61.7 H RDW Coeff of Nicolasa 16.4 H 16.1 H Plt Count 98 L 89 L MPV 11.5 H 11.5 H Platelet Estimate Decreased L VBG pH VBG pCO2 VBG pO2 VBG HCO3 VBG O2 Saturation VBG Base Excess Barometric Pressure Sodium 148 H Potassium 5.2 H Chloride 115 H Carbon Dioxide 29 Anion Gap 4.0 BUN 65 H Creatinine 3.26 H Est Cr Clr Drug Dosing 14.5 Est GFR ( Amer) 14.3 Est GFR (Non-Af Amer) 12.3 BUN/Creatinine Ratio 19.9 Glucose 80 Calcium 8.4 L Phosphorus 5.1 H Ammonia Albumin 2.7 L 05/04/20 05/04/20 13:06 13:06 WBC RBC Hgb Hct MCV MCH MCHC RDW Std Deviation RDW Coeff of Nicolasa Plt Count MPV Platelet Estimate VBG pH 7.31 L VBG pCO2 62 H VBG pO2 47 VBG HCO3 31 VBG O2 Saturation 84.7 VBG Base Excess 3.5 Barometric Pressure 736.6 Sodium Potassium Chloride Carbon Dioxide Anion Gap BUN Creatinine Est Cr Clr Drug Dosing Est GFR ( Amer) Est GFR (Non-Af Amer) BUN/Creatinine Ratio Glucose Calcium Phosphorus Ammonia 26.0 Albumin PG Care Time/CCT Total # of Minutes Spent Total Time Spent with Patient: Total time spent is greater than 50% in coordination of care (as documented) at patient's floor/unit and/or counseling patient: Coding Level of Care Code 35487 Subseq Hosp Care Lvl 3 Diagnoses ESRD (end stage renal disease) N18.6 Hyperkalemia E87.5 Anemia D64.9
[2020-05-04] MEDS: ATORVASTATIN 40 MG TAB PO SCH (21:14)
[2020-05-05 06:54] LABS: Hematocrit (blood only) 31.6 % (37-47); Hemoglobin 9.4 g/dL (12.0-16.0); Mean Corpuscular Hemoglobin 30.5 pg (25-34); Mean Corpuscular Hgb Conc 29.7 g/dL (32-36); Mean Corpuscular Volume 102.6 fL (80-100); Mean Platelet Volume 12.5 fL (7.4-10.4); Nucleated RBC # (auto) 0.04 K/uL (0-0); Nucleated RBC % (auto) 0.5 %; Platelet Count 90 K/uL (130-400); RDW Standard Deviation 60.3 fL (36.4-46.3); Red Blood Count 3.08 M/uL (4.2-5.4); White Blood Count 7.08 K/uL (4.8-10.8)
[2020-05-05 07:24] LABS: BUN Creatinine Ratio 16.2 (10-20); Calcium 8.5 mg/dl (8.5-10.1); Creatinine Clr Calc Pharmacy 18.2 ml/min; Est GFR (African American) 18.6; Potassium 4.4 mmol/L (3.5-5.1)
[2020-05-05 07:39] LABS: Thyroid Stimulating Hormone 1.52 uIu/ml (0.300-4.500)
[2020-05-05 07:53] LABS: Folate (Folic Acid) 7.3 ng/ml (>5.38)
[2020-05-05] MEDS: IRON SUCROSE 200 MG in 0.9 % SODIUM CHLORIDE 100 ML IV SCH (08:34)
[2020-05-05] MEDS: ISOSORBIDE MONO EXTENDED REL 60 MG TABCR PO SCH (08:35)
[2020-05-05] MEDS: hydrALAZINE TAB 50 MG TAB PO SCH ×3 (08:35→20:30)
[2020-05-05] MEDS: HEPARIN SOD 5,000 UNIT/0.5 ML VIAL SQ SCH ×2 (08:35→20:30)
[2020-05-05] MEDS: DOXAZOSIN MESYLATE 1 MG TAB PO SCH (08:35)
[2020-05-05] MEDS: CLOPIDOGREL BISULFATE 75 MG TAB PO SCH (08:35)
[2020-05-05] MEDS: ASPIRIN 81 MG ECTAB PO SCH (08:35)
[2020-05-05] MEDS: carvediloL 25 MG TAB PO SCH ×2 (08:35→20:30)
[2020-05-05] MEDS: NEPHROCAPS PO SCH (09:47)
--- NOTE | 2020-05-05 11:28 | Nephrology Progress Note ---
Date of Service May 05, 2020 Assessment & Plan (1) ESRD (end stage renal disease): TDC placed by Dr. Cortes 05/03. First HD treatment completed 05/03 without complications. 2nd treatment completed 05/04. BP, volume status, electrolytes are acceptable. Next dialysis planned for tomorrow. Repeat metabolic profile tomorrow AM. Nephrovite daily. Medications appropriate for kidney function. HD at [facility] to be arrange for post discharge. (2) Hyperkalemia: Adequate clearance with HD. Low K diet. Repeat metabolic profile tomorrow AM. (3) Anemia: Epogen 37025 units x 1 dose provided on 05/03. Venofer 200 mg daily x 5 doses ordered. Admission and Anticipated Discharge Date Admission Date: May 02, 2020 Subjective No acute events overnight. Bleeding from permcath exit site post treatment noted. Mental status improved this AM. Judi feels well. No complaints or concerns reported. Review of Systems Review of Systems: All systems reviewed & are unremarkable except as noted in HPI & below Physical Exam Constitutional: well developed and + frail appearing; no acute distress Eyes: no scleral abnormality and no corneal abnormality ENMT: Mouth: no oral mucosal abnormality and oral mucous membranes not dry Neck: normal visual inspection and trachea midline Respiratory: normal respiratory effort Auscultation: lungs clear to auscultation bilaterally Cardiovascular: Rate/Rhythm: regular rate Heart Sounds: normal S1 and normal S2 Extremities: no edema Musculoskeletal: Extremities: no cyanosis and no clubbing Skin: normal turgor; no lesions Neurologic: Motor/Sensory: no tremor and no asterixis Psychiatric: Orientation: alert and oriented x 3 Results & Data ([facility]) Vital Signs (Past 12 Hours) Vital Signs Temp Pulse Pulse Pulse Resp BP Pulse Ox 05/05/20 08:00 66 05/05/20 07:46 36.5 C 68 19 178/63 H 97 05/05/20 03:00 36.4 C L 57 L 20 150/61 H 93 Laboratory Results Laboratory Results - last 24 hr 05/04/20 05/04/20 05/04/20 13:06 13:06 13:06 WBC 7.01 RBC 2.96 L Hgb 9.1 L Hct 30.8 L MCV 104.1 H MCH 30.7 MCHC 29.5 L RDW Std Deviation 61.7 H RDW Coeff of Nicolasa 16.1 H Plt Count 89 L MPV 11.5 H Absolute Nucleated RBC Nucleated RBC % (auto) VBG pH 7.31 L VBG pCO2 62 H VBG pO2 47 VBG HCO3 31 VBG O2 Saturation 84.7 VBG Base Excess 3.5 Barometric Pressure 736.6 Sodium Potassium Chloride Carbon Dioxide Anion Gap BUN Creatinine Est Cr Clr Drug Dosing Est GFR ( Amer) Est GFR (Non-Af Amer) BUN/Creatinine Ratio Glucose Calcium Ammonia 26.0 Vitamin B12 Folate TSH 05/05/20 05/05/20 05/05/20 06:05 06:05 06:05 WBC 7.08 RBC 3.08 L Hgb 9.4 L Hct 31.6 L MCV 102.6 H MCH 30.5 MCHC 29.7 L RDW Std Deviation 60.3 H RDW Coeff of Nicolasa 16.0 H Plt Count 90 L MPV 12.5 H Absolute Nucleated RBC 0.04 H Nucleated RBC % (auto) 0.5 VBG pH VBG pCO2 VBG pO2 VBG HCO3 VBG O2 Saturation VBG Base Excess Barometric Pressure Sodium 145 Potassium 4.4 D Chloride 109 H Carbon Dioxide 30 Anion Gap 6.0 BUN 42 H Creatinine 2.62 H D Est Cr Clr Drug Dosing 18.2 Est GFR ( Amer) 18.6 Est GFR (Non-Af Amer) 16.0 BUN/Creatinine Ratio 16.2 Glucose 86 Calcium 8.5 Ammonia Vitamin B12 480 Folate 7.30 TSH 1.520 PG Care Time/CCT Total # of Minutes Spent Total Time Spent with Patient: Total time spent is greater than 50% in coordination of care (as documented) at patient's floor/unit and/or counseling patient: Coding Level of Care Code 28942 Subseq Hosp Care Lvl 3 Diagnoses ESRD (end stage renal disease) N18.6 Hyperkalemia E87.5 Anemia D64.9
--- NOTE | 2020-05-05 11:45 | Hospitalist Progress Note ---
Date of Service May 05, 2020 Assessment & Plan (1) ESRD (end stage renal disease): progressive CKD stage 5 with refractory hyperkalemia & volume overload at time of admission. s/p HD catheter placement 05/03. s/p HD sessions 05/03 and 05/04 with resolved hyperkalemia and improved volume s tatus with less uremic symptoms. appreciate nephrology assistance. to have HD tomorrow on Wednesday. (2) Encephalopathy acute: 2nd to uremia. 2nd to respiratory acidosis/hypercarbia. resolved. mental status at baseline today. (3) Chronic kidney disease, stage V: CrCl 15 or less x ~ 1 year. Refractory hyperkalemia for several weeks. Volume overloaded at admission as well. POD #2 s/p HD catheter placement by Dr Cortes. s/p HD session 05/03 and 05/04. To have HD on 05/06. Repeat CBC, BMP am. Appreciate nephrology assistance. (4) Hyperkalemia: 2nd to CKD stage 5/development of ESRD. resolved. (5) Pulmonary edema: improving but still volume overloaded. HD in am tomorrow. wean O2 as tolerated. (6) Hypernatremia: Ongoing since September 2019. Mild intravascular volume depletion chronically from diuretic use. Now resolved. (7) Hyperlipidemia: Cont statin. (8) Hypertension: Still uncontrolled despite HD sessions x 2. Wait 1 more day on BP meds; if after HD tomorrow still having high bps then adjust meds. (9) CAD (coronary artery disease), [place] coronary artery: Cont asa, plavix, coreg, statin. No ischemic symptoms at this time. (10) Pulmonary HTN: severe based on echo 2019. cont night-time O2. Pulm HTN likely contributing to severe LE edema. (11) Hydronephrosis of left kidney: s/p stent replacement, 01/2020. Follows with [facility]. No symptoms at this time. (12) History of ventricular tachycardia: noted. s/p ablation in the past with no recurrence since. cont BB. tele stable. (13) Lone atrial fibrillation: noted. Cont coreg. not on chronic anticoagulation. (14) Venous stasis dermatitis of both lower extremities: stable (15) Sleep apnea: CPAP/O2 hs. (16) Anemia: 2nd to CKD stage 5/ESRD. venofer x 5 doses per nephrology. TSH, B12, folate all wnl. CBC today acceptable. (17) LBBB (left bundle branch block): chronic (18) DVT prophylaxis: heparin SC 5000 BID care d/w son, Dr Griffin Watson, today progressing PT, OT evals needed Admission and Anticipated Discharge Date Admission Date: May 02, 2020 Subjective tele stable overnight. used CPAP all night last pm. woke up this am feeling pretty good. son, Griffin, was at bedside this am. he was encouraged by how she was doing today. more awake, alert and sharp today - knew it was 05/05/2020, etc. denied any new complaints. eating fair. Review of Systems Constitutional: no fever and no chills Respiratory: no cough Cardiovascular: no chest pain Gastrointestinal: no abdominal pain Physical Exam Constitutional: + obese; no acute distress ENMT: external ear and nose normal, oropharynx normal Respiratory: no respiratory distress and does not use accessory muscles Auscultation: + diminished lung sounds (bases), + crackles (slight - bases ) and + wheezes (scattered, end-exp) Cardiovascular: Rate/Rhythm: regular rate and regular rhythm Heart Sounds: normal S1, normal S2 and + murmur (2/6 LSB) Vessels: posterior tibial pulses present and dorsalis pedis pulses present; no JVD Extremities: + edema (lymphedema b/l - again improved) and + vascular access device (right tunneled HD catheter site clean and w/o bleeding today ) Gastrointestinal (Abdomen): normal bowel sounds, soft, nontender, no hepatosplenomegaly Percussion/Palpation: + hernia (umbilical - reducible ) Skin: + rash (stasis changes b/l legs, no cellulitis ) Neurologic: no focal motor deficits Psychiatric: A+Ox3, euthymic affect Results & Data Results & Data ([facility]) Vital Signs (Past 12 Hours) Vital Signs Temp Pulse Pulse Pulse Resp BP Pulse Ox 05/05/20 08:00 66 05/05/20 07:46 36.5 C 68 19 178/63 H 97 05/05/20 03:00 36.4 C L 57 L 20 150/61 H 93 Laboratory Results Laboratory Results - last 24 hr 05/04/20 05/04/20 05/04/20 13:06 13:06 13:06 WBC 7.01 RBC 2.96 L Hgb 9.1 L Hct 30.8 L MCV 104.1 H MCH 30.7 MCHC 29.5 L RDW Std Deviation 61.7 H RDW Coeff of Nicolasa 16.1 H Plt Count 89 L MPV 11.5 H Absolute Nucleated RBC Nucleated RBC % (auto) VBG pH 7.31 L VBG pCO2 62 H VBG pO2 47 VBG HCO3 31 VBG O2 Saturation 84.7 VBG Base Excess 3.5 Barometric Pressure 736.6 Sodium Potassium Chloride Carbon Dioxide Anion Gap BUN Creatinine Est Cr Clr Drug Dosing Est GFR ( Amer) Est GFR (Non-Af Amer) BUN/Creatinine Ratio Glucose Calcium Ammonia 26.0 Vitamin B12 Folate TSH 05/05/20 05/05/20 05/05/20 06:05 06:05 06:05 WBC 7.08 RBC 3.08 L Hgb 9.4 L Hct 31.6 L MCV 102.6 H MCH 30.5 MCHC 29.7 L RDW Std Deviation 60.3 H RDW Coeff of Nicolasa 16.0 H Plt Count 90 L MPV 12.5 H Absolute Nucleated RBC 0.04 H Nucleated RBC % (auto) 0.5 VBG pH VBG pCO2 VBG pO2 VBG HCO3 VBG O2 Saturation VBG Base Excess Barometric Pressure Sodium 145 Potassium 4.4 D Chloride 109 H Carbon Dioxide 30 Anion Gap 6.0 BUN 42 H Creatinine 2.62 H D Est Cr Clr Drug Dosing 18.2 Est GFR ( Amer) 18.6 Est GFR (Non-Af Amer) 16.0 BUN/Creatinine Ratio 16.2 Glucose 86 Calcium 8.5 Ammonia Vitamin B12 480 Folate 7.30 TSH 1.520 PG Care Time/CCT Total # of Minutes Spent Total Time Spent with Patient: Total time spent is greater than 50% in coordination of care (as documented) at patient's floor/unit and/or counseling patient: Coding Level of Care Code 21176 Subseq Hosp Care Lvl 2 Diagnoses ESRD (end stage renal disease) N18.6 Encephalopathy acute G93.40 Chronic kidney disease, stage V N18.5 Hyperkalemia E87.5 Pulmonary edema J81.1 Hypernatremia E87.0 Hyperlipidemia E78.5 Hyperlipidemia type: unspecified Hypertension I10 CAD (coronary artery disease), [place] coronary artery I25.10 Pulmonary HTN I27.20 Hydronephrosis of left kidney N13.30 History of ventricular tachycardia Z86.79 Lone atrial fibrillation I48.91 Venous stasis dermatitis of both lower extremities I87.2 Sleep apnea G47.30 Anemia D64.9 LBBB (left bundle branch block) I44.7 DVT prophylaxis Z29.9 (1) Hyperlipidemia Hyperlipidemia type: unspecified Qualified Code(s): E78.5 - Hyperlipidemia, unspecified
[2020-05-05] MEDS: ATORVASTATIN 40 MG TAB PO SCH (20:30)
[2020-05-06 07:05] LABS: BUN Creatinine Ratio 15.8 (10-20); Calcium 8.2 mg/dl (8.5-10.1); Est GFR (African American) 14.8; Est GFR (Non-African American) 12.8; Potassium 4.2 mmol/L (3.5-5.1)
[2020-05-06] MEDS: ISOSORBIDE MONO EXTENDED REL 60 MG TABCR PO SCH (08:01)
[2020-05-06] MEDS: CLOPIDOGREL BISULFATE 75 MG TAB PO SCH (08:01)
[2020-05-06] MEDS: HEPARIN SOD 5,000 UNIT/0.5 ML VIAL SQ SCH ×2 (08:01→20:02)
[2020-05-06] MEDS: hydrALAZINE TAB 50 MG TAB PO SCH ×3 (08:01→20:02)
[2020-05-06] MEDS: NEPHROCAPS PO SCH (08:01)
[2020-05-06] MEDS: ASPIRIN 81 MG ECTAB PO SCH (08:01)
[2020-05-06] MEDS: DOXAZOSIN MESYLATE 1 MG TAB PO SCH (08:01)
[2020-05-06] MEDS: carvediloL 25 MG TAB PO SCH ×2 (08:01→20:02)
[2020-05-06] MEDS: IRON SUCROSE 200 MG in 0.9 % SODIUM CHLORIDE 100 ML IV SCH (08:05)
--- NOTE | 2020-05-06 09:28 | Nephrology Progress Note ---
Date of Service May 06, 2020 Assessment & Plan (1) ESRD (end stage renal disease): TDC placed by Dr. Cortes 05/03. First HD treatment completed 05/03 without complications. 2nd treatment completed 05/04. Orders for treatment today entered into EMR and reviewed with HD nurse: 3.5 hrs, 300/600, 180 opti. BP, volume status, electrolytes are acceptable. Nephrovite daily. Medications appropriate for kidney function. HD at [facility] to be arrange for post discharge. (2) Hyperkalemia: Adequate clearance with HD. Low K diet. (3) Anemia: Epogen 79702 units x 1 dose provided on 05/03. Venofer 200 mg daily x 5 doses ordered. Admission and Anticipated Discharge Date Admission Date: May 02, 2020 Subjective No acute events overnight. No complaints this AM. Appetite fair. Breathing comfortably. Review of Systems Review of Systems: All systems reviewed & are unremarkable except as noted in HPI & below Physical Exam Constitutional: well developed and + frail appearing; no acute distress Eyes: no scleral abnormality and no corneal abnormality ENMT: Mouth: no oral mucosal abnormality and oral mucous membranes not dry Neck: normal visual inspection and trachea midline Respiratory: normal respiratory effort Auscultation: lungs clear to auscultation bilaterally Cardiovascular: Rate/Rhythm: regular rate Heart Sounds: normal S1 and normal S2 Extremities: no edema Musculoskeletal: Extremities: no cyanosis and no clubbing Skin: normal turgor; no lesions Neurologic: Motor/Sensory: no tremor and no asterixis Psychiatric: Orientation: alert, oriented to person and oriented to place Results & Data ([facility]) Vital Signs (Past 12 Hours) Vital Signs Temp Pulse Pulse Pulse Resp BP Pulse Ox 05/06/20 06:59 36.9 C 64 19 174/56 H 95 05/06/20 03:54 36.5 C 59 L 18 147/61 H 91 05/05/20 23:26 36.8 C 56 L 16 131/54 L 96 05/05/20 23:00 55 L Laboratory Results Laboratory Results - last 24 hr 05/06/20 05:57 Sodium 143 Potassium 4.2 Chloride 109 H Carbon Dioxide 30 Anion Gap 5.0 BUN 50 H Creatinine 3.16 H D Est Cr Clr Drug Dosing 15.0 Est GFR ( Amer) 14.8 Est GFR (Non-Af Amer) 12.8 BUN/Creatinine Ratio 15.8 Glucose 108 H Calcium 8.2 L PG Care Time/CCT Total # of Minutes Spent Total Time Spent with Patient: Total time spent is greater than 50% in coordination of care (as documented) at patient's floor/unit and/or counseling patient: Coding Level of Care Code 05231 Subseq Hosp Care Lvl 3 Diagnoses ESRD (end stage renal disease) N18.6 Hyperkalemia E87.5 Anemia D64.9
--- NOTE | 2020-05-06 19:07 | Hospitalist Progress Note ---
Date of Service May 06, 2020 Assessment & Plan (1) ESRD (end stage renal disease): progressive CKD stage 5 with refractory hyperkalemia & volume overload at time of admission. s/p HD catheter placement 05/03. s/p HD sessions 05/03 and 05/04 along with today. resolved hyperkalemia and improved volume status. appreciate nephrology assistance. (2) Encephalopathy acute: 2nd to uremia. 2nd to respiratory acidosis/hypercarbia. waxing/waning. supportive care. encourage use of CPAP for [place] -- without using CPAP she has CO2 retention. (3) Chronic kidney disease, stage V: CrCl 15 or less x ~ 1 year. Refractory hyperkalemia for several weeks. Volume overloaded at admission as well. POD #3 s/p HD catheter placement by Dr Cortes. s/p HD session 05/03, 05/04, 05/06. Repeat CBC, BMP am. Appreciate nephrology assistance. (4) Hyperkalemia: 2nd to CKD stage 5/development of ESRD. resolved. (5) Pulmonary edema: improving; 2nd to ESRD/CKD. cont dialysis. wean O2 as tolerated. (6) Hypernatremia: Ongoing since September 2019. Mild intravascular volume depletion chronically from diuretic use. Now resolved. (7) Hyperlipidemia: Cont statin. (8) Hypertension: consider increase in imdur to 90mg daily if BPs still high following dialysis today (9) CAD (coronary artery disease), [place] coronary artery: Cont asa, plavix, coreg, statin, imdur. No ischemic symptoms at this time. (10) Pulmonary HTN: severe based on echo 2019. cont night-time O2. Pulm HTN likely contributing to severe LE edema. (11) Hydronephrosis of left kidney: s/p stent replacement, 01/2020. [facility]s with [facility]. No symptoms at this time. (12) History of ventricular tachycardia: noted. s/p ablation in the past with no recurrence since. cont BB. tele stable. (13) Lone atrial fibrillation: no PAF while here. Cont coreg. not on chronic anticoagulation. (14) Venous stasis dermatitis of both lower extremities: stable (15) Sleep apnea: CPAP/O2 hs. encouraged to use it with naps and HS. (16) Anemia: 2nd to CKD stage 5/ESRD. venofer x 5 doses per nephrology. TSH, B12, folate all wnl. CBC today acceptable. repeat CBC again in am. (17) LBBB (left bundle branch block): chronic (18) DVT prophylaxis: heparin SC 5000 BID care d/w son, Dr Griffin Watson, today by phone progressing PT, OT family wanting short-term rehab after d/c Admission and Anticipated Discharge Date Admission Date: May 02, 2020 Subjective saw patient post-HD today she said "I'm exhausted" and "didn't feel good" tele stable overnight denies dyspnea or cough didn't eat well today Review of Systems Constitutional: + fatigue Respiratory: no cough and no wheezing Cardiovascular: no chest pain Gastrointestinal: no abdominal pain, no nausea and no vomiting Physical Exam Constitutional: + obese and + frail appearing; no acute distress looks very tired today ENMT: Mouth: + dry oral mucous membranes Neck: trachea midline, no thyromegaly Respiratory: no respiratory distress and does not use accessory muscles Auscultation: + diminished lung sounds (bases) and + crackles (slight - bases ) Cardiovascular: Rate/Rhythm: regular rate and regular rhythm Heart Sounds: normal S1, normal S2 and + murmur (2/6 LSB) Vessels: posterior tibial pulses present and dorsalis pedis pulses present; no JVD Extremities: + edema (lymphedema b/l - again improved) and + vascular access device (right tunneled HD catheter site clean and w/o bleeding today ) Gastrointestinal (Abdomen): normal bowel sounds, soft, nontender, no hepatosplenomegaly Percussion/Palpation: + hernia (umbilical - reducible ) Skin: + rash (stasis changes b/l legs, no cellulitis ) Psychiatric: Orientation: alert, oriented to person and oriented to place; + not oriented to time Results & Data Results & Data ([facility]) Vital Signs (Past 12 Hours) Vital Signs Temp Pulse Pulse Pulse Resp BP BP 05/06/20 15:03 37.2 C 73 17 180/55 H 05/06/20 12:55 37.2 C 70 70 174/61 H 174/61 H 05/06/20 12:40 68 166/59 H 05/06/20 12:20 68 161/58 H 05/06/20 12:00 67 169/59 H 05/06/20 11:40 66 152/54 H 05/06/20 11:20 66 148/48 H 05/06/20 11:00 64 132/41 L 05/06/20 10:40 62 122/40 L 05/06/20 10:20 63 116/37 L 05/06/20 10:00 62 114/45 L 05/06/20 09:40 59 L 107/39 L 05/06/20 09:23 37.2 C 67 67 149/52 H Pulse Ox 05/06/20 15:03 92 05/06/20 12:55 05/06/20 12:40 05/06/20 12:20 05/06/20 12:00 05/06/20 11:40 05/06/20 11:20 05/06/20 11:00 05/06/20 10:40 05/06/20 10:20 05/06/20 10:00 05/06/20 09:40 05/06/20 09:23 Laboratory Results Laboratory Results - last 24 hr 05/06/20 05:57 Sodium 143 Potassium 4.2 Chloride 109 H Carbon Dioxide 30 Anion Gap 5.0 BUN 50 H Creatinine 3.16 H D Est Cr Clr Drug Dosing 15.0 Est GFR ( Amer) 14.8 Est GFR (Non-Af Amer) 12.8 BUN/Creatinine Ratio 15.8 Glucose 108 H Calcium 8.2 L PG Care Time/CCT Total # of Minutes Spent Total Time Spent with Patient: Total time spent is greater than 50% in coordination of care (as documented) at patient's floor/unit and/or counseling patient: Coding Level of Care Code 27376 Subseq Hosp Care Lvl 2 Diagnoses ESRD (end stage renal disease) N18.6 Encephalopathy acute G93.40 Chronic kidney disease, stage V N18.5 Hyperkalemia E87.5 Pulmonary edema J81.1 Hypernatremia E87.0 Hyperlipidemia E78.5 Hyperlipidemia type: unspecified Hypertension I10 CAD (coronary artery disease), [place] coronary artery I25.10 Pulmonary HTN I27.20 Hydronephrosis of left kidney N13.30 History of ventricular tachycardia Z86.79 Lone atrial fibrillation I48.91 Venous stasis dermatitis of both lower extremities I87.2 Sleep apnea G47.30 Anemia D64.9 LBBB (left bundle branch block) I44.7 DVT prophylaxis Z29.9 (1) Hyperlipidemia Hyperlipidemia type: unspecified Qualified Code(s): E78.5 - Hyperlipidemia, unspecified
[2020-05-06] MEDS: ACETAMINOPHEN 325 MG TAB PO PRN (20:01)
[2020-05-06] MEDS: ATORVASTATIN 40 MG TAB PO SCH (20:02)
[2020-05-07 06:47] LABS: Hematocrit (blood only) 26.4 % (37-47); Hemoglobin 7.9 g/dL (12.0-16.0); Mean Corpuscular Hemoglobin 30.3 pg (25-34); Mean Corpuscular Hgb Conc 29.9 g/dL (32-36); Mean Corpuscular Volume 101.1 fL (80-100); Platelet Count 100 K/uL (130-400); RDW Coefficient of Variation 16.6 % (11.5-14.5); RDW Standard Deviation 59.9 fL (36.4-46.3); Red Blood Count 2.61 M/uL (4.2-5.4); White Blood Count 7.13 K/uL (4.8-10.8)
[2020-05-07 07:30] LABS: BUN Creatinine Ratio 12.4 (10-20); Calcium 7.8 mg/dl (8.5-10.1); Creatinine Clr Calc Pharmacy 18.6 ml/min; Est GFR (African American) 19.5; Est GFR (Non-African American) 16.8; Potassium 4.4 mmol/L (3.5-5.1)
[2020-05-07] MEDS: ISOSORBIDE MONO EXTENDED REL 60 MG TABCR PO SCH (08:14)
[2020-05-07] MEDS: NEPHROCAPS PO SCH (08:14)
[2020-05-07] MEDS: DOXAZOSIN MESYLATE 1 MG TAB PO SCH (08:15)
[2020-05-07] MEDS: ASPIRIN 81 MG ECTAB PO SCH (08:15)
[2020-05-07] MEDS: CLOPIDOGREL BISULFATE 75 MG TAB PO SCH (08:15)
[2020-05-07] MEDS: hydrALAZINE TAB 50 MG TAB PO SCH ×3 (08:16→19:46)
[2020-05-07] MEDS: carvediloL 25 MG TAB PO SCH ×2 (08:16→19:47)
[2020-05-07] MEDS: HEPARIN SOD 5,000 UNIT/0.5 ML VIAL SQ SCH ×2 (08:17→19:45)
[2020-05-07] MEDS: IRON SUCROSE 200 MG in 0.9 % SODIUM CHLORIDE 100 ML IV SCH (08:23)
--- NOTE | 2020-05-07 12:21 | Nephrology Progress Note ---
Date of Service May 07, 2020 Assessment & Plan (1) ESRD (end stage renal disease): TDC placed by Dr. Cortes 05/03. First HD treatment completed 05/03. Next anticipated HD treatment tomorrow per [facility] schedule. BP, volume status, electrolytes are acceptable. Nephrovite daily. Medications appropriate for kidney function. HD at [facility] to be arrange for post discharge. (2) Hyperkalemia: Adequate clearance with HD. Low K diet. (3) Anemia: Epogen 88167 units x 1 dose provided on 05/03. Venofer 200 mg daily x 5 doses ordered. H/H dropped overnight. No signs of bleeding. Admission and Anticipated Discharge Date Admission Date: May 02, 2020 Subjective No acute events overnight. Feeling very tired this AM. Does not want to leave bed. Tolerated HD yesterday without complications. No fevers or chills. No signs of bleeding. Review of Systems Review of Systems: All systems reviewed & are unremarkable except as noted in HPI & below Physical Exam Constitutional: well developed and + frail appearing; no acute distress Eyes: no scleral abnormality and no corneal abnormality ENMT: Mouth: no oral mucosal abnormality and oral mucous membranes not dry Neck: normal visual inspection and trachea midline Respiratory: normal respiratory effort Auscultation: lungs clear to auscultation bilaterally Cardiovascular: Rate/Rhythm: regular rate Heart Sounds: normal S1 and normal S2 Extremities: no edema Musculoskeletal: Extremities: no cyanosis and no clubbing Skin: normal turgor; no lesions Neurologic: Motor/Sensory: no tremor and no asterixis Psychiatric: Orientation: alert, oriented to person and oriented to place Eye Contact: + fair eye contact Affect: + depressed affect Results & Data ([facility]) Vital Signs (Past 12 Hours) Vital Signs Temp Pulse Pulse Resp BP Pulse Ox 05/07/20 11:26 36.6 C 56 L 18 141/44 H 97 05/07/20 07:00 51 L 05/07/20 06:58 36.8 C 57 L 17 153/64 H 98 05/07/20 04:14 36.8 C 58 L 18 146/64 H 98 05/07/20 01:04 60 Laboratory Results Laboratory Results - last 24 hr 05/07/20 05/07/20 06:29 06:29 WBC 7.13 RBC 2.61 L Hgb 7.9 L Hct 26.4 L MCV 101.1 H MCH 30.3 MCHC 29.9 L RDW Std Deviation 59.9 H RDW Coeff of Nicolasa 16.6 H Plt Count 100 L MPV 11.0 H Sodium 142 Potassium 4.4 Chloride 108 H Carbon Dioxide 32 Anion Gap 2.0 L BUN 31 H Creatinine 2.52 H D Est Cr Clr Drug Dosing 18.6 Est GFR ( Amer) 19.5 Est GFR (Non-Af Amer) 16.8 BUN/Creatinine Ratio 12.4 Glucose 91 Calcium 7.8 L PG Care Time/CCT Total # of Minutes Spent Total Time Spent with Patient: Total time spent is greater than 50% in coordination of care (as documented) at patient's floor/unit and/or counseling patient: Coding Level of Care Code 70042 Subseq Hosp Care Lvl 3 Diagnoses ESRD (end stage renal disease) N18.6 Hyperkalemia E87.5 Anemia D64.9
--- NOTE | 2020-05-07 16:34 | Hospitalist Progress Note ---
Date of Service May 07, 2020 Assessment & Plan (1) Vomitin-way abd series obtained -- no ileus, no SBO. copious distal stool. suspect she is impacted. ordered dulcolax suppos - staff stated she needed some mild disimpaction. start miralax BID and senna for constipation. I do not believe vomiting is symptom of her CAD. EKG unchanged. no CV symptoms. (2) Constipation: as above (3) ESRD (end stage renal disease): progressive CKD stage 5 with refractory hyperkalemia & volume overload at time of admission. s/p HD catheter placement 05/03. s/p HD sessions 05/03 and 05/04 and 05/06. will be due for HD tomorrow. resolved hyperkalemia and improving volume status. appreciate nephrology assistance. (4) Encephalopathy acute: 2nd to uremia. 2nd to respiratory acidosis/hypercarbia. resolved today. cont supportive care. encourage use of CPAP for GURPREET -- without using CPAP she has CO2 retention. (5) Chronic kidney disease, stage V: CrCl 15 or less x ~ 1 year. Refractory hyperkalemia for several weeks. Volume overloaded at admission as well. POD #4 s/p HD catheter placement by Dr Cotres. s/p HD session 05/03, 05/04, 05/06. Repeat CBC, BMP am. Appreciate nephrology assistance. (6) Hyperkalemia: 2nd to CKD stage 5/development of ESRD- resolved. (7) Pulmonary edema: improving; 2nd to ESRD/CKD. cont dialysis. wean O2 as tolerated. (8) Hypernatremia: resolved (9) Hyperlipidemia: Cont statin. (10) Hypertension: consider increase in imdur to 90mg daily if BPs still high in the next 1-2 days cont other CV meds (11) CAD (coronary artery disease), [place] coronary artery: Cont asa, plavix, coreg, statin, imdur. No ischemic symptoms at this time. (12) Pulmonary HTN: severe based on echo 2019. cont night-time O2. Pulm HTN likely contributing to severe LE edema. (13) Hydronephrosis of left kidney: s/p stent replacement, 01/2020. Follows with [facility]. No symptoms at this time. (14) History of ventricular tachycardia: noted. s/p ablation in the past with no recurrence since. cont BB. tele with 25-beat run of tachycardia early this am - morphology of rhythm did not change; question if this was simply PAT with her pre-existing LBBB. Would show strip to cardiology for their review. (15) Lone atrial fibrillation: no PAF while here. Cont coreg. not on chronic anticoagulation. (16) Venous stasis dermatitis of both lower extremities: stable (17) Sleep apnea: CPAP/O2 hs. encouraged to use it with naps and HS. (18) Anemia: 2nd to CKD stage 5/ESRD. venofer x 5 doses per nephrology. TSH, B12, folate all wnl. Hb dropped to 7.9 today but no overt GI bleeding, etc. vitals stable. simply repeat CBC in am. (19) LBBB (left bundle branch block): chronic (20) DVT prophylaxis: heparin SC 5000 BID care d/w son, Dr Griffin Watson, daily since admission progressing albeit slowly PT, OT family wanting short-term rehab after d/c Admission and Anticipated Discharge Date Admission Date: May 02, 2020 Subjective following lunch today had emesis. she thinks she ate too fast. has not had a BM in 5+ days. by the time I saw patient her vomiting had stopped. denied abd pain. denied nausea. no chest pain or dyspnea. continues with fatigue. tele with a 25-beat run of tachycardia - morphology did not change - PAT? Review of Systems Constitutional: + fatigue and + weakness; no fever Respiratory: no cough and no dyspnea Cardiovascular: + edema; no chest pain Gastrointestinal: + nausea, + vomiting and + constipation; no abdominal pain Physical Exam Constitutional: + obese and + frail appearing; no acute distress ENMT: Mouth: + dry oral mucous membranes Respiratory: no respiratory distress and does not use accessory muscles Auscultation: + diminished lung sounds (bases); no crackles and no wheezes Cardiovascular: Rate/Rhythm: regular rate and regular rhythm Heart Sounds: normal S1, normal S2 and + murmur (2/6 LSB) Vessels: posterior tibial pulses present and dorsalis pedis pulses present; no JVD Extremities: + edema (lymphedema b/l - unchanged from previous exam) and + vascular access device (right tunneled HD catheter site clean and w/o bleeding today ) Gastrointestinal (Abdomen): Inspection/Auscultation: + abdomen distended and normal bowel sounds Percussion/Palpation: + hernia (umbilical - reducible ); abdomen nontender and no hepatosplenomegaly Skin: + rash (stasis changes b/l legs, no cellulitis ) Psychiatric: Orientation: alert, oriented to person, oriented to place and oriented to time Results & Data Results & Data ([facility]) Vital Signs (Past 12 Hours) Vital Signs Temp Pulse Pulse Resp BP Pulse Ox 05/07/20 14:30 60 05/07/20 11:26 36.6 C 56 L 18 141/44 H 97 05/07/20 07:00 51 L 05/07/20 06:58 36.8 C 57 L 17 153/64 H 98 Laboratory Results Laboratory Results - last 24 hr 05/07/20 05/07/20 06:29 06:29 WBC 7.13 RBC 2.61 L Hgb 7.9 L Hct 26.4 L MCV 101.1 H MCH 30.3 MCHC 29.9 L RDW Std Deviation 59.9 H RDW Coeff of Nicolasa 16.6 H Plt Count 100 L MPV 11.0 H Sodium 142 Potassium 4.4 Chloride 108 H Carbon Dioxide 32 Anion Gap 2.0 L BUN 31 H Creatinine 2.52 H D Est Cr Clr Drug Dosing 18.6 Est GFR ( Amer) 19.5 Est GFR (Non-Af Amer) 16.8 BUN/Creatinine Ratio 12.4 Glucose 91 Calcium 7.8 L PG Care Time/CCT Total # of Minutes Spent Total Time Spent with Patient: Total time spent is greater than 50% in coordination of care (as documented) at patient's floor/unit and/or counseling patient: Coding Level of Care Code 04436 Subseq Hosp Care Lvl 3 Diagnoses Vomiting R11.10 Constipation K59.00 ESRD (end stage renal disease) N18.6 Encephalopathy acute G93.40 Chronic kidney disease, stage V N18.5 Hyperkalemia E87.5 Pulmonary edema J81.1 Hypernatremia E87.0 Hyperlipidemia E78.5 Hyperlipidemia type: unspecified Hypertension I10 CAD (coronary artery disease), [place] coronary artery I25.10 Pulmonary HTN I27.20 Hydronephrosis of left kidney N13.30 History of ventricular tachycardia Z86.79 Lone atrial fibrillation I48.91 Venous stasis dermatitis of both lower extremities I87.2 Sleep apnea G47.30 Anemia D64.9 LBBB (left bundle branch block) I44.7 DVT prophylaxis Z29.9 (1) Hyperlipidemia Hyperlipidemia type: unspecified Qualified Code(s): E78.5 - Hyperlipidemia, unspecified
--- NOTE | 2020-05-07 17:20 | XRay Report ---
CHEST AND ABDOMEN 2 VIEWS HISTORY: vomiting, umbilical hernia; r/o small bowel obstruction COMPARISON: Abdomen and pelvis CT 08/26/2019. FINDINGS: No pneumothorax. Right jugular catheter terminates at the proximal SVC. The heart remains e nlarged. Mild interstitial pulmonary edema has slightly improved. Small bilateral pleural effusions a nd bibasilar densities are noted. Old, healed left clavicle fracture. Advanced degenerative changes w ithin the shoulders. No pneumoperitoneum. No pneumatosis. No dilated loops of bowel to suggest an obs truction. Moderate well-formed stool seen throughout the colon and rectum. A left ureteral stent is l ikely good position. IMPRESSION: 1. Mild interstitial pulmonary edema which has slightly improved. 2. Small bilateral pleural effusions and bibasilar densities persist. 3. No evidence for bowel obstruction. 4. Moderate well-formed stool seen throughout the colon and rectum. ACT 112: Negative or not required by law. Electronically signed by: Prudencio Reynoso M.D. 05/07/2020 5:18 PM
[2020-05-07] MEDS ORDERED: bisacodyL 10 MG SUPP PR STA (17:35)
[2020-05-07] MEDS: ATORVASTATIN 40 MG TAB PO SCH (19:47)
[2020-05-07] MEDS: POLYETHYLENE (MIRALAX) 17 GM PACK PO SCH (22:05)
[2020-05-07] MEDS: SENNA 8.6 MG TAB PO SCH (22:05)
--- NOTE | 2020-05-08 06:19 | Electrocardiogram Report ---
Test Reason : Blood Pressure : / mmHG Vent. Rate : 055 BPM Atrial Rate : 055 BPM P-R Int : 178 ms QRS Dur : 162 ms QT Int : 524 ms P-R-T Axes : 047 -35 069 degrees QTc Int : 501 ms Sinus bradycardia Left axis deviation Left bundle branch block Abnormal ECG When compared with ECG of 02-MAY-2020 15:23, MO interval has decreased Confirmed by Simon Delong ([id number]) on 05/08/2020 6:19:45 AM Referred By: Gordy Alvarado Confirmed By:Simon Delong
[2020-05-08 06:32] LABS: Hemoglobin 8.7 g/dL (12.0-16.0)
[2020-05-08 07:01] LABS: Albumin Level 2.4 gm/dl (3.4-5.0); BUN Creatinine Ratio 12.9 (10-20); Calcium 8.1 mg/dl (8.5-10.1); Creatinine Clr Calc Pharmacy 15.2 ml/min; Est GFR (African American) 15.1; Est GFR (Non-African American) 13.1; Phosphorus 3.9 mg/dl (2.5-4.9); Potassium 4.8 mmol/L (3.5-5.1)
[2020-05-08] MEDS: HEPARIN SOD 5,000 UNIT/0.5 ML VIAL SQ SCH ×2 (08:00→20:54)
--- NOTE | 2020-05-08 10:31 | Nephrology Progress Note ---
Date of Service May 08, 2020 Assessment & Plan (1) ESRD (end stage renal disease): TDC placed by Dr. Cortes 05/03. First HD treatment completed 05/03. Orders for today's treatment include Qb 300 and 3K bath. Orders reviewed with nurse. UF goal 1.5 L. BP, volume status, electrolytes are acceptable. Nephrovite daily. Medications appropriate for kidney function. HD at [facility] to be arrange for post discharge. (2) Anemia: Epogen 62284 units x 1 dose provided on 05/03. Venofer 200 mg daily x 5 doses. H/H stable since yesterday. Admission and Anticipated Discharge Date Admission Date: May 02, 2020 Subjective No acute events overnight. Continues to feel very tired and weak. Judi was seen and evaluated during HD today. She developed mild nausea when UF increased. BP low but acceptable. Goal reduced to 1.5 L. No dyspnea. No chest pain. Qb acceptable. Review of Systems Review of Systems: All systems reviewed & are unremarkable except as noted in HPI & below Physical Exam Constitutional: well developed and + frail appearing; no acute distress Eyes: no scleral abnormality and no corneal abnormality ENMT: Mouth: no oral mucosal abnormality and oral mucous membranes not dry Neck: normal visual inspection and trachea midline Respiratory: normal respiratory effort Auscultation: lungs clear to a uscultation bilaterally Cardiovascular: Rate/Rhythm: regular rate Heart Sounds: normal S1 and normal S2 Extremities: no edema Musculoskeletal: Extremities: no cyanosis and no clubbing Skin: normal turgor; no lesions Neurologic: Motor/Sensory: no tremor and no asterixis Psychiatric: Orientation: alert, oriented to person and oriented to place Eye Contact: + fair eye contact Affect: + depressed affect Results & Data ([facility]) Vital Signs (Past 12 Hours) Vital Signs Temp Pulse Pulse Pulse Resp BP BP 05/08/20 10:20 62 131/42 L 05/08/20 10:00 62 125/53 L 05/08/20 09:40 64 125/51 L 05/08/20 09:20 63 110/36 L 05/08/20 09:00 63 114/38 L 05/08/20 08:40 65 113/42 L 05/08/20 08:33 37.2 C 65 65 129/47 L 05/08/20 07:19 36.6 C 67 19 122/55 L 05/08/20 04:42 36.4 C L 62 18 105/53 L 05/08/20 00:06 36.4 C L 57 L 18 112/51 L 05/07/20 23:00 65 Pulse Ox 05/08/20 10:20 05/08/20 10:00 05/08/20 09:40 05/08/20 09:20 05/08/20 09:00 05/08/20 08:40 05/08/20 08:33 05/08/20 07:19 92 05/08/20 04:42 95 05/08/20 00:06 99 05/07/20 23:00 Laboratory Results Laboratory Results - last 24 hr 05/08/20 05/08/20 06:07 06:07 Hgb 8.7 L Hct 29.0 L Sodium 141 Potassium 4.8 Chloride 107 Carbon Dioxide 30 Anion Gap 4.0 BUN 40 H Creatinine 3.10 H D Est Cr Clr Drug Dosing 15.2 Est GFR ( Amer) 15.1 Est GFR (Non-Af Amer) 13.1 BUN/Creatinine Ratio 12.9 Glucose 82 Calcium 8.1 L Phosphorus 3.9 Albumin 2.4 L PG Care Time/CCT Total # of Minutes Spent Total Time Spent with Patient: Total time spent is greater than 50% in coordination of care (as documented) at patient's floor/unit and/or counseling patient: Coding Level of Care Code 58212 Subseq Hosp Care Lvl 3 Diagnoses ESRD (end stage renal disease) N18.6 Anemia D64.9
[2020-05-08] MEDS: ACETAMINOPHEN 325 MG TAB PO PRN (12:33)
[2020-05-08] MEDS: CLOPIDOGREL BISULFATE 75 MG TAB PO SCH (12:34)
[2020-05-08] MEDS: ASPIRIN 81 MG ECTAB PO SCH (12:34)
[2020-05-08] MEDS: DOXAZOSIN MESYLATE 1 MG TAB PO SCH (12:35)
[2020-05-08] MEDS: hydrALAZINE TAB 50 MG TAB PO SCH ×3 (12:35→20:53)
[2020-05-08] MEDS: carvediloL 25 MG TAB PO SCH ×2 (12:36→20:54)
[2020-05-08] MEDS: ISOSORBIDE MONO EXTENDED REL 60 MG TABCR PO SCH (12:36)
[2020-05-08] MEDS: NEPHROCAPS PO SCH (12:36)
[2020-05-08] MEDS: POLYETHYLENE (MIRALAX) 17 GM PACK PO SCH ×2 (12:38→20:53)
--- NOTE | 2020-05-08 13:09 | Hospitalist Progress Note ---
Date of Service May 08, 2020 Assessment & Plan (1) Vomiting: This appears to be contributed to from constipation Patient did receive Zofran yesterday which helped Definitively, nurse digitally disimpacted patient and she had no more nausea or vomiting Last episode was 1515 on 05/08/2020 Continue with head of bed greater than 30 degrees Out of bed to chair as tolerated especially for meals (2) Constipation: Digitally disimpacted yesterday Continue with bowel regimen No abdominal distention or discomfort No further emesis (3) ESRD (end stage renal disease): Continue with hemodialysis per nephrology Received dialysis today HD catheter placement 05/03/2020 Further management per nephrology (4) Encephalopathy acute: Resolved Multifactorial secondary to uremia and hypercapnia Continue dialysis as tolerated Continue with CPAP at bedtime and as tolerated (5) Sleep apnea: Continue CPAP at 8 cm of water with 2 L/min bled in Use HS and with naps during the day as tolerated (6) Chronic kidney disease, stage V: Continue hemodialysis per nephrology Creatinine clearance has been less than 15 for a year Will post likely require outpatient hemodialysis on discharge (7) Pulmonary edema: No evidence of congestion on examination today Continue with ultrafiltration with hemodialysis Oxygen saturation 97% on 2 L via nasal cannula * Now the patient is receiving dialysis, titrate supplemental O2 as tolerated to maintain greater than 90% (8) Hyperlipidemia: Continue atorvastatin (9) Hypertension: Hemodynamically stable Most recent blood pressure 119/48 Continue fluid management with hemodialysis Continue carvedilol, hydralazine, Imdur Vital signs per protocol Continue on telemetry (10) Hydronephrosis of left kidney: s/p stent replacement, 01/2020. Follows with [facility]. Continue outpatient management (11) Anemia: Venofer x 5 doses per nephrology. TSH, B12, folate all wnl. Follow CBC Hemoglobin 7.9 yesterday and 8.7 today No active bleeding (12) History of ventricular tachycardia: RFA s/p RVOT VTACH (no nown recurrence since 2014 ablation per cardiology records Lone event of atrial fibrillation in 2013 Continue to monitor on telemetry (13) DVT prophylaxis: Heparin 5000 units subcutaneously twice daily Admission and Anticipated Discharge Date Admission Date: May 02, 2020 Subjective Attending: Dr. Ellison Patient just returned from dialysis. 1.7 L of fluid was filtrated off. Patient was having difficulty with postprandial emesis yesterday. Her last episode of vomiting was 3:15 PM yesterday afternoon. She denies any abdominal pain. She has no fever. She has no chills. She denies any diarrhea. In discussion with the nurse she did have some fecal impaction. The nurse did digitally disimpact the patient and since that time patient has not had no complaints of vomiting. On examination she does have some bronchospasm in the bilateral posterior basal musa but denies any shortness of breath. The patient has no other acute complaints. Review of Systems Review of Systems: All systems reviewed & are unremarkable except as noted in Subjective Physical Exam Physical Exam: GENERAL : No acute distress EYES: No icterus, gaze conjugate NOSE: No evidence of epistaxis MOUTH: No lesions or candidiasis NECK: Supple LUNGS: Bibasilar posterior bronchospasm appreciated. No other adventitious breath sounds HEART: Regular, harsh murmur appreciated. No gallops or rubs. ABDOMEN: Soft, NT, ND, BS Present EXTREMITIES: Bilateral LE edema, pedal pulses intact and equal bilaterally. Red socks in place NEURO: A&OX3 Results & Data Results & Data ([facility]) Vital Signs (Past 12 Hours) Vital Signs Temp Pulse Pulse Pulse Resp BP BP 05/08/20 12:32 37.9 C H 64 16 134/54 L 05/08/20 12:05 37.5 C 67 65 148/60 H 148/60 H 05/08/20 11:40 67 150/54 H 05/08/20 11:20 64 142/61 H 05/08/20 11:00 64 140/53 L 05/08/20 10:40 62 134/51 L 05/08/20 10:20 62 131/42 L 05/08/20 10:00 62 125/53 L 05/08/20 09:40 64 125/51 L 05/08/20 09:20 63 110/36 L 05/08/20 09:00 63 114/38 L 05/08/20 08:40 65 113/42 L 05/08/20 08:33 37.2 C 65 65 129/47 L 05/08/20 07:19 36.6 C 67 19 122/55 L 05/08/20 07:00 62 05/08/20 04:42 36.4 C L 62 18 105/53 L Pulse Ox 05/08/20 12:32 98 05/08/20 12:05 05/08/20 11:40 05/08/20 11:20 05/08/20 11:00 05/08/20 10:40 05/08/20 10:20 05/08/20 10:00 05/08/20 09:40 05/08/20 09:20 05/08/20 09:00 05/08/20 08:40 05/08/20 08:33 05/08/20 07:19 92 05/08/20 07:00 05/08/20 04:42 95 Laboratory Results 05/08/20 06:07 05/08/20 06:07 PG Care Time/CCT Total # of Minutes Spent Total Time Spent with Patient: Total time spent is greater than 50% in coordination of care (as documented) at patient's floor/unit and/or counseling patient: 25 minutes Coding Level of Care Code 09683 Subseq Hosp Care Lvl 2 Diagnoses Vomiting R11.11 Vomiting type: unspecified Vomiting Intractability: unspecified Nausea presence: without nausea Constipation K59.00 Constipation type: unspecified constipation type ESRD (end stage renal disease) N18.6 Encephalopathy acute G93.40 Sleep apnea G47.33 Sleep apnea type: obstructive Chronic kidney disease, stage V N18.5 Pulmonary edema J81.0 Chronicity: acute Hyperlipidemia E78.5 Hyperlipidemia type: unspecified Hypertension I10 Hypertension type: unspecified Hydronephrosis of left kidney N13.30 Anemia N18.6; D63.1; Z99.2 Anemia type: due to chronic kidney disease Chronic kidney disease stage: on chronic dialysis History of ventricular tachycardia Z86.79 DVT prophylaxis Z29.9 Time Spent (min) 25 (1) Vomiting Vomiting type: unspecified Vomiting Intractability: unspecified Nausea pre sence: without nausea Qualified Code(s): R11.11 - Vomiting without nausea (2) Constipation Constipation type: unspecified constipation type Qualified Code(s): K59.00 - Constipation, unspecified (3) Sleep apnea Sleep apnea type: obstructive Qualified Code(s): G47.33 - Obstructive sleep apnea (adult) (pediatric) (4) Pulmonary edema Chronicity: acute Qualified Code(s): J81.0 - Acute pulmonary edema (5) Hyperlipidemia Hyperlipidemia type: unspecified Qualified Code(s): E78.5 - Hyperlipidemia, unspecified (6) Hypertension Hypertension type: unspecified Qualified Code(s): I10 - Essential (primary) hypertension (7) Anemia Anemia type: due to chronic kidney disease Chronic kidney disease stage: on chronic dialysis Qualified Code(s): N18.6 - End stage renal disease; D63.1 - Anemia in chronic kidney disease; Z99.2 - Dependence on renal dialysis
[2020-05-08] MEDS: ATORVASTATIN 40 MG TAB PO SCH (20:51)
[2020-05-08] MEDS: SENNA 8.6 MG TAB PO SCH (20:52)
[2020-05-09] MEDS: hydrALAZINE TAB 50 MG TAB PO SCH ×2 (08:10→13:56)
[2020-05-09] MEDS: DOXAZOSIN MESYLATE 1 MG TAB PO SCH (08:11)
[2020-05-09] MEDS: ASPIRIN 81 MG ECTAB PO SCH (08:11)
[2020-05-09] MEDS: carvediloL 25 MG TAB PO SCH (08:11)
[2020-05-09] MEDS: ISOSORBIDE MONO EXTENDED REL 60 MG TABCR PO SCH (08:12)
[2020-05-09] MEDS: POLYETHYLENE (MIRALAX) 17 GM PACK PO SCH (08:12)
[2020-05-09] MEDS: NEPHROCAPS PO SCH (08:12)
[2020-05-09] MEDS: HEPARIN SOD 5,000 UNIT/0.5 ML VIAL SQ SCH (08:12)
[2020-05-09] MEDS: CLOPIDOGREL BISULFATE 75 MG TAB PO SCH (08:12)
--- NOTE | 2020-05-09 11:38 | Nephrology Progress Note ---
Date of Service May 09, 2020 Assessment & Plan (1) ESRD (end stage renal disease): TDC placed by Dr. Cortes 05/03. First HD treatment completed 05/03. Maintained on MWF schedule. Next Anticipated treatment tomorrow. Volume status and BP acceptable. Will continue HD at [facility] post discharge. I spoke to admissions at [facility] today. Medications appropriate for kidney function. (2) Anemia: Epogen 37136 units x 1 dose provided on 05/03. Venofer 200 mg daily x 5 doses. Admission and Anticipated Discharge Date Admission Date: May 02, 2020 Subjective No acute events overnight. Tolerated HD well yesterday without complications. Plan for discharge to [facility] today. Review of Systems Review of Systems: All systems reviewed & are unremarkable except as noted in HPI & below Physical Exam Constitutional: well developed and + frail appearing; no acute distress Eyes: no scleral abnormality and no corneal abnormality ENMT: Mouth: no oral mucosal abnormality and oral mucous membranes not dry Neck: normal visual inspection and trachea midline Respiratory: normal respiratory effort Auscultation: lungs clear to auscultation bilaterally Cardiovascular: Rate/Rhythm: regular rate Heart Sounds: normal S1 and normal S2 Extremities: no edema Musculoskeletal: Extremities: no cyanosis and no clubbing Skin: normal turgor; no lesions Neurologic: Motor/Sensory: no tremor and no asterixis Psychiatric: Orientation: alert, oriented to person and oriented to place Eye Contact: + fair eye contact Affect: + depressed affect Results & Data ([facility]) Vital Signs (Past 12 Hours) Vital Signs Temp Pulse Pulse Pulse Resp BP Pulse Ox 05/09/20 08:00 58 L 05/09/20 07:33 36.5 C 58 L 18 156/67 H 93 05/09/20 03:00 36.9 C 59 L 20 117/61 92 05/09/20 00:54 54 L PG Care Time/CCT Total # of Minutes Spent Total Time Spent with Patient: Total time spent is greater than 50% in coordination of care (as documented) at patient's floor/unit and/or counseling patient: Coding Level of Care Code 89880 Subseq Hosp Care Lvl 3 Diagnoses ESRD (end stage renal disease) N18.6 Anemia N18.6; D63.1; Z99.2 Anemia type: due to chronic kidney disease Chronic kidney disease stage: on chronic dialysis (1) Anemia Anemia type: due to chronic kidney disease Chronic kidney disease stage: on chronic dialysis Qualified Code(s): N18.6 - End stage renal disease; D63.1 - Anemia in chronic kidney disease; Z99.2 - Dependence on renal dialysis
--- NOTE | 2020-05-09 11:59 | Discharge Summary ---
Date of Service May 09, 2020 Admission HPI Per Admitting Provider 85yo female with CKD stage 5, recent difficulties with hyperkalemia, chronic diastolic congestive heart failure, pulmonary HTN, GURPREET on CPAP/O2, Hypertension, and CAD who presents from home after outpatient blood work showed K level of 6.3. Her primary software design manager, Dr Alvarado, called the patient and advised going to the ER for admission and to initiate hemodialysis. During my admission assessment she surprisingly denies any cardiopulmonary or infectious complaints. She has severe, chronic LE edema but it is unchanged from baseline. Denies weight gain. No fevers, chills, chest pain, dyspnea on exertion, loss of taste or smell, etc. Performs most ADLs at home and assists with the care of a special needs daughter who lives with her. Upon ER presentation the ER attending ordered IV dextrose, IV insulin, and IV calcium prior to my arrival for the hyperkalemia. She has had elevated BPs in the ER. She reports "they are always high" (chart mentions white coat HTN) but she does not check her BPs at home. Principal Diagnosis End stage renal disease, pulmonary edema Discharge Exam Constitutional WD/WN, vitals as above Eyes PERRL, conjunctivae normal, anicteric sclerae ENMT external ear and nose normal, oropharynx normal Neck trachea midline, no thyromegaly Respiratory normal respiratory effort, lungs clear to auscultation Cardiovascular RRR, no murmur, no edema Gastrointestinal (Abdomen) normal bowel sounds, soft, nontender, no hepatosplenomegaly Musculoskeletal no cyanosis or clubbing, extremities motor strength 5/5 Skin no rashes, warm and dry Neurologic CN's II-XI intact bilaterally Psychiatric A+Ox3, euthymic affect Discharge Data Allergies Allergy/AdvReac Type Severity Reaction Status Date / Time ampicillin Allergy Mild pruritus Verified 05/02/20 17:07 Bactrim Allergy Unknown felt like Verified 11/04/17 07:47 walking on eggs lisinopril Allergy Unknown Unknown Verified 05/02/20 17:07 reaction streptomycin Allergy Unknown Unknown Verified 05/02/20 17:07 reaction sulfamethoxazole AdvReac Intermediate "walking Verified 05/02/20 17:07 on eggs shells" feeling trimethoprim AdvReac Intermediate "walking Verified 05/02/20 17:07 on eggs shells" feeling Consultations 05/02/20 16:20 ED Decision to Admit Stat 05/02/20 18:35 Consult Nephrology Routine Consult Vascular Surgery Routine 05/03/20 10:56 Consult Case Management - Discharge Planning Routine Procedures Performed Operation Date: 05/03/20 08:00 Actual Procedures p Perm Catheter Insertion Right Jugular Approach, Ultrasound Localization of Right Jugular Vein, Fluoroscopy for positioning, Moderate Sedation 0914- 1010(Right) - Mal Cortes MD Ordered Studies 05/03/20 07:11 EV cvc insrt tunnel wo prt/supervisor Routine 05/03/20 14:31 US EV guide vascular access Routine Hospital Course (1) Vomitin-way abd series obtained -- no ileus, no SBO. copious distal stool. suspect she is impacted. ordered dulcolax suppos - staff stated she needed some mild disimpaction. started miralax BID and senna for constipation. I do not believe vomiting is symptom of her CAD. EKG unchanged. no CV symptoms. (2) Constipation: as above. Continue miralax nd senna (3) ESRD (end stage renal disease): progressive CKD stage 5 with refractory hyperkalemia & volume overload at time of admission. s/p HD catheter placement 2/12. s/p HD sessions 2/ and 05/04 and 05/06. resolved hyperkalemia and improving volume status. appreciate nephrology assistance. (4) Encephalopathy acute: 2nd to uremia. 2nd to respiratory acidosis/hypercarbia. resolved cont supportive care. encourage use of CPAP for GURPREET -- without using CPAP she has CO2 retention. (5) Chronic kidney disease, stage V: CrCl 15 or less x ~ 1 year. Refractory hyperkalemia for several weeks. Volume overloaded at admission as well. POD #5 s/p HD catheter placement by Dr Cortes. s/p multiple HD sessions. Appreciate nephrology assistance. (6) Hyperkalemia: 2nd to CKD stage 5/development of ESRD- resolved. (7) Pulmonary edema: resolved. 2nd to ESRD/CKD. cont dialysis. O2 weaned off. (8) Hypernatremia: resolved (9) Hyperlipidemia: Cont statin. (10) Hypertension: medical management. (11) CAD (coronary artery disease), [place] coronary artery: Cont asa, plavix, coreg, statin, imdur. No ischemic symptoms at this time. (12) Pulmonary HTN: severe based on echo 2020. cont night-time O2. Pulm HTN likely contributing to severe LE edema. (13) Hydronephrosis of left kidney: s/p stent replacement, 01/2020. Follows with [facility]. No symptoms at this time. (14) History of ventricular tachycardia: noted. s/p ablation in the past with no recurrence since. cont BB. tele with 25-beat run of wide complex tachycardia. Might simply be PAT with her pre-existing LBBB. (15) Lone atrial fibrillation: no PAF while here. Cont coreg. not on chronic anticoagulation. (16) Venous stasis dermatitis of both lower extremities: stable (17) Sleep apnea: CPAP/O2 hs. encouraged to use it with naps and HS. (18) Anemia: 2nd to CKD stage 5/ESRD. venofer x 5 doses per nephrology. TSH, B12, folate all wnl. (19) LBBB (left bundle branch block): chronic (20) DVT prophylaxis: heparin SC 5000 BID Dispo: [facility] [place] today, 05/09 Total Time Total Time Spent Total Time Spent (In Minutes): 40 minutes Total Time Includes: Examination of the Patient, Discharge Planning and Medication Reconciliation Discharge Plan Discharge Items Reason For Visit: HYPERKALEMIA, ADVANCED CKD Follow-up/Referrals: Bhavin Prince, [Primary Care Provider] - Medications and DC Order Prescriptions: No Action carvedilol 25 mg tablet 25 mg PO BID Qty: 180 RF: 3 isosorbide mononitrate 60 mg tablet extended release 24 hr 60 mg PO QAM Qty: 90 RF: 3 hydralazine 50 mg tablet 100 mg PO TID Qty: 560 RF: 3 ergocalciferol (vitamin D2) 1,250 mcg (50,000 unit) capsule 50,000 unit PO MONTHLY Qty: 3 RF: 1 atorvastatin 80 mg tablet 80 mg PO QPM Qty: 90 RF: 3 torsemide 5 mg tablet 10 mg PO QAM RF: 0 (DME) CPAP Supplies Misc See Rx Instructions .ROUTE .MEDSUPPLY Qty: 1 RF: 0 ferrous sulfate 325 mg (65 mg iron) tablet 325 mg PO DAILY Qty: 30 RF: 0 clopidogrel 75 mg tablet 75 mg PO QAM RF: 0 magnesium oxide 400 mg magnesium Capsule 400 mg PO QAM RF: 0 doxazosin [Cardura] 1 mg tablet 1 mg PO QAM RF: 0 aspirin [Aspir-Low] 81 mg Tablet,Delayed Release (Dr/Ec) 81 mg PO DAILY RF: 0 Admission Data Admit Date/Time: 05/02/20 17:18 Attending Provider: Griffin Davila Admit Provider: Surya Gipson Primary Care Provider: Bhavin Prince Other Providers: Surya Gipson ; Gordy Alvarado ; Mal Cortes ; [facility] ; [facility] ; [facility] ; [facility] ; [facility] Coding Level of Care Code D/C Day Management >30 mins Diagnoses Vomiting R11.11 Vomiting type: unspecified Vomiting Intractability: unspecified Nausea presence: without nausea Constipation K59.00 Constipation type: unspecified constipation type ESRD (end stage renal disease) N18.6 Encephalopathy acute G93.40 Chronic kidney disease, stage V N18.5 Hyperkalemia E87.5 Pulmonary edema J81.0 Chronicity: acute Hypernatremia E87.0 Hyperlipidemia E78.5 Hyperlipidemia type: unspecified Hypertension I10 Hypertension type: unspecified CAD (coronary artery disease), [place] coronary artery I25.10 Pulmonary HTN I27.20 Hydronephrosis of left kidney N13.30 History of ventricular tachycardia Z86.79 Lone atrial fibrillation I48.91 Venous stasis dermatitis of both lower extremities I87.2 Sleep apnea G47.33 Sleep apnea type: obstructive Anemia N18.6; D63.1; Z99.2 Anemia type: due to chronic kidney disease Chronic kidney disease stage: on chronic dialysis LBBB (left bundle branch block) I44.7 DVT prophylaxis Z29.9
== END 2020-05-09 16:06 | DRG 291 ==
LOC: ED 14:56 → SUATTDRO 17:18 → 2S 17:18

== ENCOUNTER 2022-03-07 04:16 | Inpatient (IN) ==
[2022-03-07] MEDS ORDERED: SODIUM CHLORIDE 0.9% 250 ML IV ONE (04:27)
[2022-03-07] MEDS ORDERED: ONDANSETRON INJ 2 MG/ML 2 ML VIAL IV STA (04:27)
[2022-03-07] MEDS ORDERED: ONDANSETRON INJ 2 MG/ML 2 ML VIAL ONE ×2 (04:31→06:33)
--- NOTE | 2022-03-07 04:35 | Emergency Department Note ---
Impression & Plan Incarcerated umbilical hernia, Small bowel obstruction, ESRD (end stage renal disease) ED Provider Note Name: CAROL CARBALLO Age: 87 Sex: F Arrives Via: Ambulance Informant: Patient, EMS, Son ED Provider: Hunter Barnes MD Chief Complaint: Abdominal pain Impression: As per impressions above Medical Decision Makin-year-old female with extensive past medical history including CAD, CHF, hypertension, dyslipidemia, pulmonary hypertension and end-stage renal disease on dialysis. Patient with a history of remote appendectomy. She arrives with increasing abdominal pain over the last few hours associated with episodes of repetitive vomiting. On examination she has a distended hyper active bowel sound abdomen with large umbilical hernia which is tender to palpation and unable to be reduced. CT Noncon of the abdomen and pelvis reveals concern for small bowel obstruction with transition point within the umbilical hernia. Discussed this with Dr. Love on-call general surgeon who evaluated the patient at bedside. He too feels that this is consistent with obstructing incarcerated hernia requiring surgery. Patient was kept comfortable with small dose of IV Dilaudid. She does appear to a bit dehydrated but in the setting of her CHF she was only given 250 mL IV fluids. Patient was taken to the OR for further management emergently. I did discuss the case with the hospitalist to make them aware the patient will likely need hospitalist admission following the OR. Prior Medical Record and Triage/Nursing Notes reviewed by Me Additional history obtained from chart & son Differentials:SBO, Incarcerated Hernia, Gastroenteritis, food borne illness, infections, diverticulitis, inflammatory bowel disease, biliary pathology, volvulus, as well as other pathologies. Vital Signs: reviewed and remarkable for no significant abnormalities Interventions: Normal saline bolus 250 mL IV, Dilaudid 0.25 mg IV Labs:Reviewed and remarkable for stent with end-stage renal disease. There is elevated troponin also consistent with end-stage renal disease. Imagin view chest x-ray no overt infiltrate appreciated as per my interpretation. CT of the abdomen pelvis reveals concern for obstructing incarcerated small bowel in the umbilical hernia. EKG:Per My Interpretation: Indication Vomiting: Sinus Tach 96 bpm, qtc 538 with LBBB. No Ectopy. No Ischemia. Compared to EKG 05/07/20 rate has increased Consults:Dr Love [place] Gen Surg Plan: Disposition:OR Condition: Fair History of Present Illness: 87-year-old female arrives for evaluation of nausea and vomiting. Patient with rapid onset diffuse abdominal discomfort. Associated with nausea and repetitive vomiting. This started over the last few hours. She notes she was feeling fine throughout the day and even had dinner. Denies any falls, trauma, injury. EMS reports that patient had a large bowel movement without any pain or blood. Patient states nothing seems to make symptoms better or worse. She was given 4 mg IV Zofran in route by EMS. She notes a history of an appendectomy. She denies any history of bowel obstructions. Does not know any sick contacts. Patient denies any current chest pain, palpitations, headache, neck pain, shortness of breath, back pain, diarrhea, change in chronic leg swelling, rashes nor other concerning signs or symptoms. ROS: See above HPI for pertinent positives & negatives. A total of 10 systems reviewed and were otherwise negative. Past Medical History:See Below Past Surgical History:See Below Family History:See Below Social History:See Below Home Medications:See Below Allergies:See Below Vitals:Blood Pressure: 146/68, Pulse 75, RR 25, T 36.8C, O2 97% on RA Physical Exam: GENERAL: Patient is uncomfortable appearing and in moderate distress. Actively vomiting (bile, non-bloody). Dehydrated appearing EYES: No scleral icterus, unremarkable pupils. ENT: Mucous membranes dry, no nasal congestion. NECK: No masses appreciated, nomeningismus, trachea is midline. RESPIRATORY: No dyspnea. Clear to auscultation and equal bilaterally. No wheeze, no rhonchi. CARDIOVASCULAR: Regular rate and rhythm.No murmurs, rubs, gallops appreciated. GASTROINTESTINAL: Hyperactive bowel sounds with minimal tenderness throughout abdomen on palpation. There is a large umbilical hernia which is nonreducible and is tender to palpation. BACK: No midline tenderness, no CVA tenderness EXTREMITIES: Normal motion all extremities, no cyanosis, 4+ bilateral lower leg edema. left upper arm dialysis fistula NEUROLOGIC: Alert and oriented, no acute motor or sensory deficits, no focal weakness, cranial nerves grossly intact. SKIN: No rash, no jaundice, no diaphoresis. PSYCH: Appropriate GCS: 15 ED Course: Times/Reassessments: Patient uncomfortable though vomiting did improved after Zofran. She is given a small dose of Dilaudid and is significantly more unable to reduce on multiple attempts the umbilical hernia. General surgery and to evaluate and also attempted without success to reduce the hernia. She was taken emergently to the OR for further management. Critical Care: I have personally spent 30 minutes of critical care time in the direct management of this patient. Acute obstructing umbilical hernia requiring emergency surgery. This was a life/limb threatening event. This 30 minutes is in excess of all separately billable procedures. Hunter Barnes MD Past Med/Surg History Medical History Anemia chronic, baseline hgb 8-10 range per chart review CAD (coronary artery disease) IPMI s/p RCA stents x2 (2011) Chronic diastolic CHF (congestive heart failure) Chronic kidney disease, stage V [place] with [facility] [place] (Dr. Alvarado), baseline creatinine 3.5 due to microvascular disease and impaired perfusion associated w/ pulmonary HTN/R heart failure COPD (chronic obstructive pulmonary disease) Diabetes mellitus, type 2 Diet controlled ESRD (end stage renal disease) Dialysis M/W/F (unknown location) Gout History of nephrolithiasis History of ventricular tachycardia RFA s/p RVOT VTACH (no nown recurrence since 2014 ablation per cardiology records Hyperlipidemia Hyperparathyroidism LBBB (left bundle branch block) chronic dating back to at least 2017 stress test, echo done 08/2019 Lone atrial fibrillation Lone event (2013) d/t electrolyte abnormalities with no known recurrence therefore anticoagulation therapy "not required" per heart failure clinic records Myocardial Infarction 2011 Obesity Osteoarthritis Pulmonary hypertension Moderate to severe pulmonary hypertension. RVSP 59 mmHg. Sleep apnea CPAP + O2 2L HS Umbilical hernia Venous stasis dermatitis of both lower extremities Weakness gait abnormality Surgical History H/O cardiac catheterization 2006, 2011 (stents x2) History of appendectomy History of cataract surgery R/L History of cystoscopy cysto/stent exchange: 02/20/19: MAC sedation at [facility] cysto/stent exchange: 08/03/19: MAC sedation at [facility] cysto/stent removal: 07/30/20: MAC at [facility] History of tonsillectomy Hx of prior ablation treatment RFA s/p RVOT VTACH (no recurrence since 2014 ablation per cardio records) Family History Unknown Hypertension Father , age 53 Lung cancer Mother , age 59 Cancer Other No family history of adverse response to anesthesia Denies family history of Kidney disease Social History Smoking Status: Never smoker Second Hand Exposure: No; Hx Substance Use: No Preferred Language: [place] Communication Ability: Effective Visual Impairment: No Limitations Hearing Ability: Normal Wine Bottle Inspector Required: No Beliefs That Will Affect Care: None marital status: / Current Living Situation: Family Current Living Situation Comment: Lives with special needs daughter How many Children do You have: 3 other: 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; 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 Feels Safe at Home: Yes Childhood Exposure to Second-Hand Smoke: No Dental Care, Regularly: No Physical Activity Frequency: Does not Exercise Seatbelt Use: always Sunscreen Use: Yes Assistive Devices: CPAP Allergies Allergies Allergy/AdvReac Type Severity Reaction Status Date / Time ampicillin Allergy Mild pruritus Verified 04/15/21 06:33 lisinopril Allergy Unknown Unknown Verified 04/15/21 06:33 reaction streptomycin Allergy Unknown Unknown Verified 04/15/21 06:33 reaction sulfamethoxazole AdvReac Intermediate "walking Verified 04/15/21 06:33 on eggs shells" feeling trimethoprim AdvReac Intermediate "walking Verified 04/15/21 06:33 on eggs shells" feeling Home Meds Home Medications Medication Instructions Recorded Confirmed clopidogrel 75 mg tablet (Plavix) 75 mg PO QAM 08/01/19 04/15/21 doxazosin 1 mg tablet (Cardura) 1 mg PO HS 01/08/20 04/15/21 aspirin 81 mg tablet,delayed 81 mg PO QAM 05/02/20 04/15/21 release acetaminophen 325 mg tablet 650 mg PO Q4H PRN Pain 07/18/20 04/15/21 (Tylenol) acetaminophen 500 mg capsule 500 mg PO BID 07/18/20 04/15/21 amino ac-protein hydro-whey 1 ea PO BID 07/18/20 04/15/21 protein 10 gram-100 kcal/30 mL oral liquid (ProSource) atorvastatin 80 mg tablet 80 mg PO HS 07/18/20 04/15/21 bisacodyl 10 mg rectal suppository 10 mg ND Q48H PRN Constipation 07/18/20 04/15/21 (Dulcolax (bisacodyl)) carvedilol 25 mg tablet 25 mg PO HS 07/18/20 04/15/21 carvedilol 25 mg tablet 25 mg PO QAM 07/18/20 04/15/21 hydralazine 100 mg tablet 100 mg PO HS 07/18/20 04/15/21 hydralazine 100 mg tablet 100 mg PO TID 07/18/20 04/15/21 isosorbide mononitrate 60 mg 60 mg PO QPM 07/18/20 04/15/21 tablet,extended release 24 hr magnesium hydroxide 400 mg/5 mL 30 ml PO Q48H PRN Constipation 07/18/20 04/15/21 oral suspension (Milk of Magnesia) phenyleph-shark liver 1 applic ND DAILY PRN Hemorrhoids 07/18/20 04/15/21 [id number] rectal cream sodium phosphates 19 gram-7 118 ml ND Q72H PRN Constipation 07/18/20 04/15/21 gram/118 mL enema torsemide 10 mg tablet 10 mg PO QAM 07/18/20 04/15/21 torsemide 10 mg tablet 10 mg PO QPM 07/18/20 04/15/21 tramadol 50 mg tablet 25 mg PO BID 07/18/20 04/15/21 calcium acetate(phosphat bind) 667 667 mg PO TID 08/21/20 04/15/21 mg tablet nystatin 100,000 unit/gram topical 1 applic topical BID PRN Rash 08/21/20 04/15/21 cream Previous Rx's Medication Instructions Recorded CPAP Supplies #1 ea 04/12/19 ergocalciferol (vitamin D2) 1,250 50,000 unit PO MONTHLY #3 caps 01/01/20 mcg (50,000 unit) capsule nitroglycerin 0.4 mg sublingual 0.4 mg sublingual UD PRN chest 05/09/20 tablet (Nitrostat) pain #25 tabs sennosides 8.6 mg tablet (Senokot) 17.2 mg PO HS #30 tabs 05/09/20 vitamin B complex and vitamin C 1 cap PO QAM #30 caps 05/09/20 no.20-folic acid 1 mg capsule (Renal Caps) Results & Data (ED) Vital Signs Vital Signs - 24 hr 03/07/22 04:25 03/07/22 04:27 03/07/22 04:21 Temperature 36.8 C Temperature Source Oral Pulse Rate 75 96 H Pulse Rate [Apical] 95 H Pulse Rate from SpO2 Sensor 96 H Pulse Rhythm Regular Pulse Strength Normal Respiratory Rate 23 20 19 Respiratory Effort / Characteristics Non-Labored Spontaneous Respiratory Depth Normal Respiratory Pattern Regular Blood Pressure 146/68 H Blood Pressure Mean 94 Blood Pressure Position Sitting Pulse Oximetry 97 94 97 Oxygen Delivery Method Room Air Room Air Oxygen Flow Rate Sepsis Recent Fever Within 48 Hours No Sepsis New/Unexplained Change in Mental Status N/A Sepsis Action Taken by Nursing No Action Required 03/07/22 04:30 03/07/22 04:50 03/07/22 05:00 Temperature Temperature Source Pulse Rate 129 H 98 H Pulse Rate [Apical] Pulse Rate from SpO2 Sensor 97 H 93 H Pulse Rhythm Pulse Strength Respiratory Rate 17 18 Respiratory Effort / Characteristics Respiratory Depth Respiratory Pattern Blood Pressure 137/76 Blood Pressure Mean 96 Blood Pressure Position Pulse Oximetry 95 96 Oxygen Delivery Method Oxygen Flow Rate Sepsis Recent Fever Within 48 Hours Sepsis New/Unexplained Change in Mental Status Sepsis Action Taken by Nursing 03/07/22 05:00 03/07/22 05:10 03/07/22 05:30 Temperature Temperature Source Pulse Rate 97 H 99 H 97 H Pulse Rate [Apical] Pulse Rate from SpO2 Sensor Pulse Rhythm Pulse Strength Respiratory Rate 13 13 16 Respiratory Effort / Characteristics Respiratory Depth Respiratory Pattern Blood Pressure 140/68 Blood Pressure Mean 92 Blood Pressure Position Pulse Oximetry 93 Oxygen Delivery Method Nasal Cannula Oxygen Flow Rate 3 Sepsis Recent Fever Within 48 Hours Sepsis New/Unexplained Change in Mental Status Sepsis Action Taken by Nursing 03/07/22 06:00 03/07/22 06:23 Temperature Temperature Source Pulse Rate 98 H 105 H Pulse Rate [Apical] Pulse Rate from SpO2 Sensor 97 H 105 H Pulse Rhythm Pulse Strength Respiratory Rate 16 18 Respiratory Effort / Characteristics Respiratory Depth Respiratory Pattern Blood Pressure 132/65 131/69 Blood Pressure Mean 87 89 Blood Pressure Position Pulse Oximetry 97 98 Oxygen Delivery Method Nasal Cannula Nasal Cannula Oxygen Flow Rate 3 3 Sepsis Recent Fever Within 48 Hours Sepsis New/Unexplained Change in Mental Status Sepsis Action Taken by Nursing Laboratory Data Result diagrams: 03/07/22 04:25 03/07/22 04:25 Lab Results 03/07/22 03/07/22 03/07/22 Range/Units 04:25 04:25 04:25 WBC 12.52 H (4.8-10.8) K/ul RBC 3.73 L (3.93-5.22) M/uL Hgb 12.7 (12.0-16.0) g/dl Hct 39.1 (34.1-44.9) % MCV 104.8 H (80.0-100.0) fL MCH 34.0 (25.0-34.0) pg MCHC 32.5 (32.0-36.0) g/dL RDW Std Deviation 50.6 H (36.4-46.3) fL RDW Coeff of Nicolasa 13.2 (11.5-14.5) % Plt Count 169 (130-400) K/uL MPV 10.5 (9.4-12.3) fL Immature Gran % (Auto) 0.7 % Neut % (Auto) 76.6 % Lymph % (Auto) 15.7 % [place] % (Auto) 4.4 % Eos % (Auto) 2.0 % Baso % (Auto) 0.6 % Neut # (Auto) 9.60 H (1.4-6.5) K/uL Lymph # (Auto) 1.96 (1.2-3.4) K/uL [place] # (Auto) 0.55 (0.24-0.82) K/uL Eos # (Auto) 0.25 (0-0.50) K/uL Baso # (Auto) 0.07 (0-0.2) K/uL Immature Gran # (Auto) 0.09 H (0.00-0.02) K/uL Sodium 136 (136-145) mmol/L Potassium 3.8 (3.5-5.1) mmol/L Chloride 94 L (98-107) mmol/L Carbon Dioxide 28 (21-32) mmol/L Anion Gap 14 H (3-11) BUN 53 H (6-23) mg/dl Creatinine 3.96 H (0.6-1.2) mg/dl Est Cr Clr Drug Dosing Not Reportable Est GFR ( Amer) 11.1 ml/min Est GFR (Non-Af Amer) 9.6 ml/min BUN/Creatinine Ratio 13.4 (10-20) Glucose 180 H (70-99(Fasting)) mg/dl Calcium 9.3 (8.5-10.1) mg/dl Magnesium 2.1 (1.7-2.4) mg/dl Total Bilirubin 0.6 (0.2-1.0) mg/dl Direct Bilirubin 0.2 (0-0.2) mg/dl AST 17 (13-39) U/L ALT 11 (7-52) U/L Alkaline Phosphatase 204 H (34-104) U/L Troponin I High Sens 110.4 H* (0-14) pg/ml Total Protein 8.0 (6.0-8.3) gm/dl Albumin 4.3 (3.4-5.0) gm/dl Lipase 46 (11-82) U/L Procalcitonin 0.42 (0-0.5) ng/ml SARS-CoV-2, RNA, NAAT (NEGATIVE) 03/07/22 Range/Units 05:15 WBC (4.8-10.8) K/ul RBC (3.93-5.22) M/uL Hgb (12.0-16.0) g/dl Hct (34.1-44.9) % MCV (80.0-100.0) fL MCH (25.0-34.0) pg MCHC (32.0-36.0) g/dL RDW Std Deviation (36.4-46.3) fL RDW Coeff of Nicolasa (11.5-14.5) % Plt Count (130-400) K/uL MPV (9.4-12.3) fL Immature Gran % (Auto) % Neut % (Auto) % Lymph % (Auto) % [place] % (Auto) % Eos % (Auto) % Baso % (Auto) % Neut # (Auto) (1.4-6.5) K/uL Lymph # (Auto) (1.2-3.4) K/uL [place] # (Auto) (0.24-0.82) K/uL Eos # (Auto) (0-0.50) K/uL Baso # (Auto) (0-0.2) K/uL Immature Gran # (Auto) (0.00-0.02) K/uL Sodium (136-145) mmol/L Potassium (3.5-5.1) mmol/L Chloride (98-107) mmol/L Carbon Dioxide (21-32) mmol/L Anion Gap (3-11) BUN (6-23) mg/dl Creatinine (0.6-1.2) mg/dl Est Cr Clr Drug Dosing Est GFR ( Amer) ml/min Est GFR (Non-Af Amer) ml/min BUN/Creatinine Ratio (10-20) Glucose (70-99(Fasting)) mg/dl Calcium (8.5-10.1) mg/dl Magnesium (1.7-2.4) mg/dl Total Bilirubin (0.2-1.0) mg/dl Direct Bilirubin (0-0.2) mg/dl AST (13-39) U/L ALT (7-52) U/L Alkaline Phosphatase (34-104) U/L Troponin I High Sens (0-14) pg/ml Total Protein (6.0-8.3) gm/dl Albumin (3.4-5.0) gm/dl Lipase (11-82) U/L Procalcitonin (0-0.5) ng/ml SARS-CoV-2, RNA, NAAT NEGATIVE (NEGATIVE) Administered Medications Discontinued Medications Hydromorphone HCl (Hydromorphone Inj 0.5 Mg/0.5 Ml Syr) 0.25 mg IV NOW STA Stop: 03/07/22 05:29 Last Admin: 03/07/22 05:35 Dose: 0.25 mg Documented By: KEVIN Sodium Chloride (Nss) 250 mls @ 999 mls/hr IV .Q16M ONE Stop: 03/07/22 04:42 Last Infusion: 03/07/22 05:10 Dose: 0 mls/hr Documented By: Admin: 03/07/22 04:34 Dose: 999 mls/hr Documented By: LUCIUS Ondansetron HCl (Ondansetron Inj 2 Mg/Ml 2 Ml Vial) 4 mg IV NOW STA Stop: 03/07/22 04:28 Last Admin: 03/07/22 04:32 Dose: 4 mg Documented By: LUCIUS Ondansetron HCl (Ondansetron Inj 2 Mg/Ml 2 Ml Vial) Confirm Administered Dose 4 mg .ROUTE .STK-MED ONE Stop: 03/07/22 04:32 Last Admin: 03/07/22 04:33 Dose: Not Given Documented By: LUCIUS Discharge Plan Visit Data Chief Complaint: Abdominal Pain Stated Complaint: Nausea, Vomiting ED Provider: Hunter Barnes Discharge Problem: Incarcerated umbilical hernia, Small bowel obstruction, ESRD (end stage renal disease) Patient Disposition: Admitted As Inpatient Discharge Instructions Interventions: ED Discharge Assessment Last Done: 03/07/22 06:25
[2022-03-07 04:37] LABS: Basophils # (auto) 0.07 K/uL (0-0.2); Basophils % (auto) 0.6 %; Eosinophils # (auto) 0.25 K/uL (0-0.50); Hematocrit (blood only) 39.1 % (34.1-44.9); Hemoglobin 12.7 g/dl (12.0-16.0); Immature Granulocytes # (auto) 0.09 K/uL (0.00-0.02); Immature Granulocytes % (auto) 0.7 %; Lymphocytes # (auto) 1.96 K/uL (1.2-3.4); Lymphocytes % (auto) 15.7 %; Mean Corpuscular Hgb Conc 32.5 g/dL (32.0-36.0); Mean Corpuscular Volume 104.8 fL (80.0-100.0); Mean Platelet Volume 10.5 fL (9.4-12.3); Monocytes # (auto) 0.55 K/uL (0.24-0.82); Monocytes % (auto) 4.4 %; Neutrophils % (auto) 76.6 %; Platelet Count 169 K/uL (130-400); RDW Coefficient of Variation 13.2 % (11.5-14.5); RDW Standard Deviation 50.6 fL (36.4-46.3); Red Blood Count 3.73 M/uL (3.93-5.22); White Blood Count 12.52 K/ul (4.8-10.8)
[2022-03-07 05:10] LABS: Alanine Aminotransferase 11 U/L (7-52); Albumin Level 4.3 gm/dl (3.4-5.0); Alkaline Phosphatase 204 U/L (34-104); Anion Gap 14 (3-11); Aspartate Aminotransferase 17 U/L (13-39); BUN Creatinine Ratio 13.4 (10-20); Bilirubin Direct 0.2 mg/dl (0-0.2); Bilirubin,Total 0.6 mg/dl (0.2-1.0); Blood Urea Nitrogen 53 mg/dl (6-23); Calcium 9.3 mg/dl (8.5-10.1); Carbon Dioxide 28 mmol/L (21-32); Chloride 94 mmol/L (98-107); Est GFR (African American) 11.1 ml/min; Est GFR (Non-African American) 9.6 ml/min; Glucose 180 mg/dl (70-99(Fasting)); Lipase 46 U/L (11-82); Magnesium 2.1 mg/dl (1.7-2.4); Potassium 3.8 mmol/L (3.5-5.1); Sodium 136 mmol/L (136-145)
[2022-03-07 05:19] LABS: Troponin I High Sensitivity 110.4 pg/ml (0-14)
[2022-03-07] MEDS ORDERED: HYDROmorphone INJ 0.5 MG/0.5 ML SYR IV STA (05:28)
[2022-03-07] MEDS ORDERED: MIDAZOLAM HCL 1 MG/ML 2ML VIAL ONE (06:31)
[2022-03-07] MEDS ORDERED: fentaNYL citrate 100 MCG/2 ML VIAL ONE ×2 (06:32→07:31)
[2022-03-07] MEDS ORDERED: PROPOFOL IV EMULSION 10 MG/ML 20 ML VIAL IV ONE (06:32)
[2022-03-07] MEDS ORDERED: ROCURONIUM BROMIDE 10 MG/ML 5 ML VIAL IV ONE (06:33)
--- NOTE | 2022-03-07 06:33 | History & Physical Report ---
Date of Service March 07, 2022 Assessment & Plan (1) Incarcerated ventral hernia: Plan: CT images and results reviewed by myself, she does have a periumbilical ventral hernia causing small bowel obstruction that is a reducible on exam She does have multiple medical comorbidities which will make her perioperative course challenging I did discuss with her that since we are unable to reduce the hernia the only way to fix the problem would be surgery I did discuss at length with her that she is at high risk for bleeding due to her antiplatelet therapy as well as high risk for perioperative complications due to her medical comorbidities She is okay with this would like to proceed with surgery We will plan on exploratory laparotomy, possible bowel resection, ventral hernia repair, possible mesh Consent was obtained, risk discussed including bleeding, infection, recurrence, need for further surgery We will get the medicine team on board for help with her medical comanagement after the operating room (2) Small bowel obstruction: History of Present Illness Chief Complaint: Abdominal pain Primary Care Provider: [facility] This is an 87-year-old female who presented to the ER a few hours ago with sharp abdominal pain. She states the pain began yesterday evening after dinner. She does have a known umbilical hernia and she states that the area became more swollen and painful around her umbilicus after dinner. The pain continued to get worse and worse and more sharp. She then started to have nausea and emesis and was transferred here for further evaluation. She denies any fevers or chills. He does take Plavix for history of vascular disease. She is on dialysis. She does have a history of heart failure as well. She cannot member her last bowel movement. Allergies Allergy/AdvReac Type Severity Reaction Status Date / Time ampicillin Allergy Mild pruritus Verified 04/15/21 06:33 lisinopril Allergy Unknown Unknown Verified 04/15/21 06:33 reaction streptomycin Allergy Unknown Unknown Verified 04/15/21 06:33 reaction sulfamethoxazole AdvReac Intermediate "walking Verified 04/15/21 06:33 on eggs shells" feeling trimethoprim AdvReac Intermediate "walking Verified 04/15/21 06:33 on eggs shells" feeling Home Medications Medication Instructions Recorded Confirmed Type CPAP Supplies #1 ea 04/12/19 10/01/20 Rx clopidogrel 75 mg tablet (Plavix) 75 mg PO QAM 08/01/19 04/15/21 History ergocalciferol (vitamin D2) 1,250 50,000 unit PO MONTHLY #3 caps 01/01/20 04/15/21 Rx mcg (50,000 unit) capsule doxazosin 1 mg tablet (Cardura) 1 mg PO HS 01/08/20 04/15/21 History aspirin 81 mg tablet,delayed 81 mg PO QAM 05/02/20 04/15/21 History release nitroglycerin 0.4 mg sublingual 0.4 mg sublingual UD PRN chest 05/09/20 04/15/21 Rx tablet (Nitrostat) pain #25 tabs sennosides 8.6 mg tablet (Senokot) 17.2 mg PO HS #30 tabs 05/09/20 04/15/21 Rx vitamin B complex and vitamin C 1 cap PO QAM #30 caps 05/09/20 04/15/21 Rx no.20-folic acid 1 mg capsule (Renal Caps) acetaminophen 325 mg tablet 650 mg PO Q4H PRN Pain 07/18/20 04/15/21 History (Tylenol) acetaminophen 500 mg capsule 500 mg PO BID 07/18/20 04/15/21 History amino ac-protein hydro-whey 1 ea PO BID 07/18/20 04/15/21 History protein 10 gram-100 kcal/30 mL oral liquid (ProSource) atorvastatin 80 mg tablet 80 mg PO HS 07/18/20 04/15/21 History bisacodyl 10 mg rectal suppository 10 mg AL Q48H PRN Constipation 07/18/20 04/15/21 History (Dulcolax (bisacodyl)) carvedilol 25 mg tablet 25 mg PO HS 07/18/20 04/15/21 History carvedilol 25 mg tablet 25 mg PO QAM 07/18/20 04/15/21 History hydralazine 100 mg tablet 100 mg PO HS 07/18/20 04/15/21 History hydralazine 100 mg tablet 100 mg PO TID 07/18/20 04/15/21 History isosorbide mononitrate 60 mg 60 mg PO QPM 07/18/20 04/15/21 History tablet,extended release 24 hr magnesium hydroxide 400 mg/5 mL 30 ml PO Q48H PRN Constipation 07/18/20 04/15/21 History oral suspension (Milk of Magnesia) phenyleph-shark liver 1 applic AL DAILY PRN Hemorrhoids 07/18/20 04/15/21 History [id number]-[id number] rectal cream sodium phosphates 19 gram-7 118 ml AL Q72H PRN Constipation 07/18/20 04/15/21 History gram/118 mL enema torsemide 10 mg tablet 10 mg PO QAM 07/18/20 04/15/21 History torsemide 10 mg tablet 10 mg PO QPM 07/18/20 04/15/21 History tramadol 50 mg tablet 25 mg PO BID 07/18/20 04/15/21 History calcium acetate(phosphat bind) 667 667 mg PO TID 08/21/20 04/15/21 History mg tablet nystatin 100,000 unit/gram topical 1 applic topical BID PRN Rash 08/21/20 04/15/21 History cream Past Med/Surg History Medical History Anemia chronic, baseline hgb 8-10 range per chart review CAD (coronary artery disease) IPMI s/p RCA stents x2 (2011) Chronic diastolic CHF (congestive heart failure) Chronic kidney disease, stage V follows with [facility] nephrology (Dr. Alvarado), baseline creatinine 3.5 due to microvascular disease and impaired perfusion associated w/ pulmonary HTN/R heart failure COPD (chronic obstructive pulmonary disease) Diabetes mellitus, type 2 Diet controlled ESRD (end stage renal disease) Dialysis M/W/F (unknown location) Gout History of nephrolithiasis History of ventricular tachycardia RFA s/p RVOT VTACH (no nown recurrence since 2014 ablation per cardiology records Hyperlipidemia Hyperparathyroidism LBBB (left bundle branch block) chronic dating back to at least 2017 stress test, echo done 08/2019 Lone atrial fibrillation Lone event (2013) d/t electrolyte abnormalities with no known recurrence therefore anticoagulation therapy "not required" per heart failure clinic records Myocardial Infarction 2011 Obesity Osteoarthritis Pulmonary hypertension Moderate to severe pulmonary hypertension. RVSP 59 mmHg. Sleep apnea CPAP + O2 2L HS Umbilical hernia Venous stasis dermatitis of both lower extremities Weakness gait abnormality Surgical History H/O cardiac catheterization 2006, 2011 (stents x2) History of appendectomy History of cataract surgery R/L History of cystoscopy cysto/stent exchange: 02/20/19: MAC sedation at [facility] cysto/stent exchange: 08/03/19: MAC sedation at [facility] cysto/stent removal: 07/30/20: MAC at [facility] History of tonsillectomy Hx of prior ablation treatment RFA s/p RVOT VTACH (no recurrence since 2015 ablation per cardio records) Family History Unknown Hypertension Father , age 53 Lung cancer Mother , age 59 Cancer Other No family history of adverse response to anesthesia Denies family history of Kidney disease Social History Smoking Status: Never smoker Second Hand Exposure: No; Hx Substance Use: No Preferred Language: Cuban Communication Ability: Effective Visual Impairment: No Limitations Hearing Ability: Normal Blocker Metal Base Required: No Beliefs That Will Affect Care: None marital status: / Current Living Situation: Family Current Living Situation Comment: Lives with special needs daughter How many Children do You have: 3 other: 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; 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 Feels Safe at Home: Yes Childhood Exposure to Second-Hand Smoke: No Dental Care, Regularly: No Physical Activity Frequency: Does not Exercise Seatbelt Use: always Sunscreen Use: Yes Assistive Devices: CPAP Review of Systems Constitutional: no fever and no chills Eyes: no worsening vision Ear, Nose, Mouth, Throat: no hearing loss Respiratory: no cough and no dyspnea Cardiovascular: no chest pain and no dyspnea on exertion Gastrointestinal: + abdominal pain, + nausea, + vomiting and + constipation Genitourinary: no dysuria Musculoskeletal: no back pain and no neck pain Integumentary: no rash, no non-healing lesions and no skin ulcer Neurologic: no headache(s) Psychiatric: no behavioral changes and no depression Hematologic / Lymphatic: On Plavix Physical Exam Constitutional: WD/WN, vitals as above Eyes: PERRL, conjunctivae normal, anicteric sclerae ENMT: external ear and nose normal, oropharynx normal Neck: trachea midline, no thyromegaly Respiratory: normal respiratory effort, lungs clear to auscultation Cardiovascular: RRR, no murmur, no edema Gastrointestinal (Abdomen): Inspection/Auscultation: + abdomen abnormal to inspection and abdomen not distended Percussion/Palpation: + abdomen tender (Periumbilically), abdomen soft and + hernia (Incarcerated umbilical hernia with mild ecchymosis); no guarding and abdomen not rigid Musculoskeletal: no cyanosis or clubbing, extremities motor strength 5/5 Skin: no rashes, warm and dry Neurologic: PERRL, EOMI, accommodation nl, no face palsy, no dysarthria Psychiatric: A+Ox3, euthymic affect Results & Data Results & Data ([facility]) Vital Signs (Past 12 Hours) Vital Signs Temp Pulse Pulse Resp BP Pulse Ox O2 Del Method 03/07/22 06:23 105 H 18 131/69 98 Nasal Cannula 03/07/22 06:00 98 H 16 132/65 97 Nasal Cannula 03/07/22 05:30 97 H 16 140/68 93 Nasal Cannula 03/07/22 05:10 99 H 13 03/07/22 05:00 97 H 13 03/07/22 05:00 137/76 03/07/22 04:50 98 H 18 96 03/07/22 04:30 129 H 17 95 03/07/22 04:21 96 H 19 97 03/07/22 04:27 95 H 20 94 Room Air 03/07/22 04:25 36.8 C 75 23 146/68 H 97 Room Air O2 Flow Rate 03/07/22 06:23 3 03/07/22 06:00 3 03/07/22 05:30 3 03/07/22 05:10 03/07/22 05:00 03/07/22 05:00 03/07/22 04:50 03/07/22 04:30 03/07/22 04:21 03/07/22 04:27 03/07/22 04:[address] abdomen pelvis reveals an incarcerated ventral hernia causing a small bowel obstruction PG Care Time/CCT Total # of Minutes Spent Total Time Spent with Patient: Total time spent is greater than 50% in coordination of care (as documented) at patient's floor/unit and/or counseling patient: Coding Level of Care Code 60773 Initial Inpt Care Lvl 3 Diagnoses Incarcerated ventral hernia K43.6 Small bowel obstruction K56.609
--- NOTE | 2022-03-07 06:43 | CT Scan Report ---
CT SCAN OF THE ABDOMEN AND PELVIS WITHOUT IV CONTRAST CLINICAL HISTORY: Generalized abdominal pain. Vomiting. COMPARISON STUDY: Abdominal CT dated 08/26/2019. TECHNIQUE: CT scan of the abdomen and pelvis is performed from the lung bases to the proximal femora. Images are reviewed in the axial, sagittal, and coronal planes. IV contrast was not administered for this examination. Note that the examination is suboptimal without oral and IV contrast. There is als o streak artifact from the arms which could not be elevated above the abdomen. A dose lowering techni que was utilized adhering to the principles of ALARA. A small hiatal hernia is noted. CT DOSE: 1534.95 mGy.cm FINDINGS: Lung bases: The heart is enlarged and without pericardial effusion. The coronary arteries are densely calcified. The lung bases are clear noting bibasilar scarring/atelectasis. Liver: The unenhanced liver is enlarged, measuring 19.7 cm in length. The liver is otherwise normal i n contour and attenuation. There is no intrahepatic biliary ductal dilatation. Gallbladder: Unremarkable. Spleen: Normal in size and attenuation. Pancreas: The unenhanced pancreas is atrophic and grossly unremarkable. Adrenal glands: Unremarkable. Kidneys: The unenhanced kidneys are atrophic and without hydronephrosis. There is a 3 mm nonobstructi ng calculus in the right lower pole. No left ureteral calculi are identified and there is no ureteral stone. There is no evidence of contour deforming renal mass lesion. Bilateral renal cysts measuring 2.6 cm. Additional indeterminant cortical hypodensities measuring up to 2.7 cm have been present on p rior examinations. The largest in the interpolar left kidney has decreased in size from 08/26/2019. Abdominal vasculature: The abdominal aorta is normal in course and caliber noting advanced atheroscle rotic calcification. Bowel: There is a large ventral hernia in the pelvic midline which contains a segment of small bowel in the transverse colon. The small bowel within and upstream to the hernia is distended and fluid-albaro led with loops measuring up to 3.2 cm diameter. The small bowel exiting the hernia is decompressed, a s is the colon. This is consistent with a small bowel obstruction at the level of the hernia. No foca lly thick-walled bowel loops are identified. There is no pneumatosis intestinalis or portal venous ga s. There is moderate to advanced colonic diverticulosis without CT evidence of acute diverticulitis. The appendix is not identified. Peritoneum: There is no intraperitoneal free air or abdominal ascites. Lymphadenopathy: None. Pelvic viscera: The bladder is decompressed and not well evaluated. Uterine fibroids are suggested. N o adnexal lesion is seen. Skeletal structures: The skeletal structures are osteopenic. There is moderate lumbosacral spondylosi s. No lytic or blastic lesions are seen. IMPRESSION: 1. Small bowel obstruction secondary to an incarcerated loop of small bowel within a ventral hernia i n the pelvis. Surgical assessment is advised. 2. No intraperitoneal free air is seen. There are no focally thick-walled bowel loops, and no pneumat osis intestinalis or portal venous gas. 3. Right-sided nephrolithiasis. 4. Advanced colonic diverticulosis without CT evidence of acute diverticulitis. 5. Cardiomegaly. 6. Additional findings as above. ACT 112: Negative or not required by law. Electronically signed by: Ervin Cat M.D. 03/07/2022 6:41 AM
--- NOTE | 2022-03-07 06:48 | Anesthesiology Consultation ---
Date of Service March 07, 2022 Assessment & Plan Chart Review Chart Review: Acceptable Risk for Surgery Consults Requested none History Surgery Operation Date: 03/07/22 06:00 Proposed Procedures p Exploratory Laparotomy - DO braeden John Bowel Resection - DO braeden John Umbilical Hernia Repair with poss mesh, exploratory lap, bowel resection - Waqas Love DO Height/Weight Weight: 99.9 kg Allergies Allergy/AdvReac Type Severity Reaction Status Date / Time ampicillin Allergy Mild pruritus Verified 04/15/21 06:33 lisinopril Allergy Unknown Unknown Verified 04/15/21 06:33 reaction streptomycin Allergy Unknown Unknown Verified 04/15/21 06:33 reaction sulfamethoxazole AdvReac Intermediate "walking Verified 04/15/21 06:33 on eggs shells" feeling trimethoprim AdvReac Intermediate "walking Verified 04/15/21 06:33 on eggs shells" feeling Medications Home Medications Medication Instructions Recorded Confirmed Last Taken CPAP Supplies #1 ea 04/12/19 10/01/20 Unknown clopidogrel 75 mg tablet (Plavix) 75 mg PO QAM 08/01/19 04/15/21 04/09/21 ergocalciferol (vitamin D2) 1,250 50,000 unit PO MONTHLY #3 caps 01/01/20 04/15/21 04/08/21 mcg (50,000 unit) capsule doxazosin 1 mg tablet (Cardura) 1 mg PO HS 01/08/20 04/15/21 04/11/21 aspirin 81 mg tablet,delayed 81 mg PO QAM 05/02/20 04/15/21 04/15/21 release nitroglycerin 0.4 mg sublingual 0.4 mg sublingual UD PRN chest 05/09/20 04/15/21 Unknown tablet (Nitrostat) pain #25 tabs sennosides 8.6 mg tablet (Senokot) 17.2 mg PO HS #30 tabs 05/09/20 04/15/21 04/14/21 vitamin B complex and vitamin C 1 cap PO QAM #30 caps 05/09/20 04/15/21 04/14/21 no.20-folic acid 1 mg capsule (Renal Caps) acetaminophen 325 mg tablet 650 mg PO Q4H PRN Pain 07/18/20 04/15/21 04/13/21 (Tylenol) acetaminophen 500 mg capsule 500 mg PO BID 07/18/20 04/15/21 Unknown amino ac-protein hydro-whey 1 ea PO BID 07/18/20 04/15/21 04/14/21 protein 10 gram-100 kcal/30 mL oral liquid (ProSource) atorvastatin 80 mg tablet 80 mg PO HS 07/18/20 04/15/21 04/14/21 bisacodyl 10 mg rectal suppository 10 mg MD Q48H PRN Constipation 07/18/20 04/15/21 04/14/21 (Dulcolax (bisacodyl)) carvedilol 25 mg tablet 25 mg PO HS 07/18/20 04/15/21 04/14/21 carvedilol 25 mg tablet 25 mg PO QAM 07/18/20 04/15/21 04/15/21 hydralazine 100 mg tablet 100 mg PO HS 07/18/20 04/15/21 04/14/21 hydralazine 100 mg tablet 100 mg PO TID 07/18/20 04/15/21 04/15/21 isosorbide mononitrate 60 mg 60 mg PO QPM 07/18/20 04/15/21 04/14/21 tablet,extended release 24 hr magnesium hydroxide 400 mg/5 mL 30 ml PO Q48H PRN Constipation 07/18/20 04/15/21 04/08/21 oral suspension (Milk of Magnesia) phenyleph-shark liver 1 applic MD DAILY PRN Hemorrhoids 07/18/20 04/15/21 Unknown [id number] rectal cream sodium phosphates 19 gram-7 118 ml MD Q72H PRN Constipation 07/18/20 04/15/21 04/14/21 gram/118 mL enema torsemide 10 mg tablet 10 mg PO QAM 07/18/20 04/15/21 04/15/21 torsemide 10 mg tablet 10 mg PO QPM 07/18/20 04/15/21 04/14/21 tramadol 50 mg tablet 25 mg PO BID 07/18/20 04/15/21 04/14/21 calcium acetate(phosphat bind) 667 667 mg PO TID 08/21/20 04/15/21 04/14/21 mg tablet nystatin 100,000 unit/gram topical 1 applic topical BID PRN Rash 08/21/20 04/15/21 04/14/21 cream NPO Date Last Intake of Fluids: 03/06/22 Time Last Intake of Fluids: 18:00 Date Last Intake of Solids: 03/06/22 Time Last Intake of Solids: 18:00 Past Medical History Medical History Anemia chronic, baseline hgb 8-10 range per chart review CAD (coronary artery disease) IPMI s/p RCA stents x2 (2011) Chronic diastolic CHF (congestive heart failure) Chronic kidney disease, stage V follows with [facility] nephrology (Dr. Alvarado), baseline creatinine 3.5 due to microvascular disease and impaired perfusion associated w/ pulmonary HTN/R heart failure COPD (chronic obstructive pulmonary disease) Diabetes mellitus, type 2 Diet controlled ESRD (end stage renal disease) Dialysis M/W/F (unknown location) Gout History of nephrolithiasis History of ventricular tachycardia RFA s/p RVOT VTACH (no nown recurrence since 2014 ablation per cardiology records Hyperlipidemia Hyperparathyroidism LBBB (left bundle branch block) chronic dating back to at least 2017 stress test, echo done 08/2019 Lone atrial fibrillation Lone event (2013) d/t electrolyte abnormalities with no known recurrence therefore anticoagulation therapy "not required" per heart failure clinic records Myocardial Infarction 2011 Obesity Osteoarthritis Pulmonary hypertension Moderate to severe pulmonary hypertension. RVSP 59 mmHg. Sleep apnea CPAP + O2 2L HS Umbilical hernia Venous stasis dermatitis of both lower extremities Weakness gait abnormality Past Family History Family History Unknown Hypertension Father , age 53 Lung cancer Mother , age 59 Cancer Other No family history of adverse response to anesthesia Denies family history of Kidney disease Past Surgical History Surgical History H/O cardiac catheterization 2006, 2011 (stents x2) History of appendectomy History of cataract surgery R/L History of cystoscopy cysto/stent exchange: 02/20/19: MAC sedation at [facility] cysto/stent exchange: 08/03/19: MAC sedation at [facility] cysto/stent removal: 07/30/20: MAC at [facility] History of tonsillectomy Hx of prior ablation treatment RFA s/p RVOT VTACH (no recurrence since 2014 ablation per cardio records) Social History Smoking Status: Never smoker Hx Substance Use: No substance use type: does not use Physical Exam Vital Signs Last Vital Signs Temp 36.8 C 03/07/22 04:25 Pulse 105 H 03/07/22 06:23 Resp 18 03/07/22 06:23 BP 131/69 03/07/22 06:23 Pulse Ox 98 03/07/22 06:23 O2 Del Method 03/07/22 06:23 O2 Flow Rate 3 03/07/22 06:23 Testing Laboratory Results 03/07/22 04:25 03/07/22 04:25
[2022-03-07] MEDS ORDERED: HYDROmorphone INJ 1 MG/ML SYRINGE IV PRN (06:49)
[2022-03-07] MEDS ORDERED: ONDANSETRON INJ 2 MG/ML 2 ML VIAL IV PRN (06:49)
[2022-03-07] MEDS ORDERED: ePHEDrine sulfate 50 MG/ML AMP IV PRN (06:49)
[2022-03-07] MEDS ORDERED: ATROPINE SULFATE 0.1 MG/ML 10ML SYR IV PRN (06:49)
[2022-03-07] MEDS ORDERED: fentaNYL citrate 100 MCG/2 ML VIAL IV PRN (06:49)
[2022-03-07] MEDS ORDERED: PROMETHAZINE HCL 12.5 MG in SODIUM CHLORIDE 0.9% 50 ML IV PRN (06:49)
--- NOTE | 2022-03-07 07:00 | XRay Report ---
SINGLE VIEW CHEST CLINICAL HISTORY: Dyspnea. FINDINGS: An AP, portable, upright chest radiograph is compared to study dated 05/07/2020. The heart i s enlarged noting atherosclerotic calcification of the thoracic aorta. The pulmonary vasculature is n oncongested. Chronic interstitial thickening is similar to previous. Scarring/atelectasis is noted at the lung bases. The lungs and pleural spaces are otherwise clear. No pneumothorax is seen. The skele zo structures are osteopenic. The bony thorax is grossly intact. IMPRESSION: Cardiomegaly with no acute cardiopulmonary abnormality. ACT 112: Negative or not required by law. Electronically signed by: Ervin Cat M.D. 03/07/2022 6:58 AM
[2022-03-07] MEDS ORDERED: BUPIVACAINE/EPINEPHRINE 0.25% 1:200,000 30 ML VIAL ONE (07:06)
[2022-03-07] MEDS ORDERED: LIDOCAINE 2% 2 ML VIAL/AMP(20MG/ML) INFIL ONE (07:44)
[2022-03-07] MEDS ORDERED: ceFAZolin 2000MG 2,000 MG/15 ML SYR IV ONE (07:53)
[2022-03-07] MEDS ORDERED: GLYCOPYRROLATE 0.2 MG/ML VIAL ONE (07:56)
[2022-03-07] MEDS ORDERED: NEOSTIGMINE METHYLSULFATE 1 MG/ML 10ML VIAL ONE (07:56)
--- NOTE | 2022-03-07 08:05 | Post Operative Brief Note ---
PG Immediate Post Op with CF Date of Surgery March 07, 2022 Pre & Post Diagnosis Operation Date: 03/07/22 06:00 Pre-Op Diagnosis: Incarcerated ventral hernia. Post-Op Diagnosis: Incarcerated ventral hernia. I identified the patient and participated in the time-out.: Yes Procedure Operation Date: 03/07/22 06:00 Actual Procedures p Exploratory Laparotomy, Partial Omentectomy - Waaqs Love DO s Incarcerated Ventral Hernia Repair - Waqas Love DO Surgeon Waqas Love DO Rehabilitation Manager Aj Bravo PA-C Estimated Blood Loss 20 Findings See Below Incarcerated ventral hernia containing small bowel and transverse colon causing small bowel obstruction Specimens Specimen Description: A. Omentum. B. Hernia Sac. Drains Reji Drain (03/25) Anesthesia Type General Complications none Disposition Disposition: Recovery Room
--- NOTE | 2022-03-07 08:14 | Operative Report ---
PG Post Operative Report Pre & Post Diagnosis Operation Date: 03/07/22 06:00 Pre-Op Diagnosis: Incarcerated ventral hernia. Post-Op Diagnosis: Incarcerated ventral hernia. I identified the patient and participated in the time-out.: Yes Procedure Operation Date: 03/07/22 06:00 Actual Procedures p Exploratory Laparotomy, Partial Omentectomy - Waqas Love DO s Incarcerated Ventral Hernia Repair - Waqas Love DO Surgeon Waqas Love DO Embossing Clerk Aj Bravo PA-C Estimated Blood Loss 20 Findings See Below Incarcerated ventral hernia containing small bowel and transverse colon causing small bowel obstruction Specimens Omentum and hernia sac to pathology Drains Quarter inch Reji drain in the subcutaneous tissue Anesthesia Type General Complications none Disposition Disposition: Recovery Room Indications 87-year-old female with incarcerated ventral hernia causing small bowel obstruction Description of Procedure The patient was brought to the OR and placed in the supine position with both arms abducted. At this time she underwent general endotracheal anesthesia without any problems. She was given appropriate pre-operative antibiotics. Her abdomen was prepped and draped in the usual sterile fashion. Timeout was called. The procedure was verified as Exploratory laparotomy, possible bowel resection, repair of incarcerated ventral hernia, possible mesh. Surgical, anesthesia and nursing teams agreed and the procedure was begun. A standard midline incision was made using a #10 blade scalpel curving about the umbilicus. This was carried down to the hernia sac which was encountered and opened bluntly using Metzenbaum scissors. There was some clear ascites present within the hernia sac. At this point the hernia sac was removed using electrocautery and passed off the specimen. The neck of the hernia itself was small and had to be increased in size in order to reduce the contents. The hernia did contain a portion of the transverse colon, omentum and small bowel. This was all freed circumferentially from the hernia defect and easily placed back into the abdomen . The colon and small bowel were viable. There were no ischemic changes noted. A portion of the omentum was excised using a Kacie clamp, Metzenbaum scissors and silk ties in order to prevent an internal hernia. At this point the wound was then irrigated until clear. Hemostasis was achieved using electrocautery. Hemostasis was complete. The ventral hernia was then closed using 0 Prolene in a [id number] fashion. 1/4 inch [place] drain was placed into the subcutaneous tissue underneath the incision and skin was closed with onofre. Sterile dressing was applied. All needle and sponge counts were correct x 2. At this point the patient was awakened from anesthesia, and transported to PACU in stable condition. The physician's city carrier assistant was present and scrubbed for the entirety of the case. He was critical in positioning the patient, prepping and draping, retraction and exposure, closure of the incision and placement of the dressings. I attest to the content of the Intraoperative Record and any orders documented therein. Any exceptions are noted below.
--- NOTE | 2022-03-07 08:53 | Anesthesiology Progress Note ---
Date of Service March 07, 2022 Anesthesia Post Procedure Vital Signs Vital Signs: Temp Pulse Pulse Resp BP Pulse Ox O2 Del Method 03/07/22 06:23 105 H 18 131/69 98 Nasal Cannula 03/07/22 06:00 98 H 16 132/65 97 Nasal Cannula 03/07/22 05:30 97 H 16 140/68 93 Nasal Cannula 03/07/22 05:10 99 H 13 03/07/22 05:00 97 H 13 03/07/22 05:00 137/76 03/07/22 04:50 98 H 18 96 03/07/22 04:30 129 H 17 95 03/07/22 04:21 96 H 19 97 03/07/22 04:27 95 H 20 94 Room Air 03/07/22 04:25 36.8 C 75 23 146/68 H 97 Room Air O2 Flow Rate 03/07/22 06:23 3 03/07/22 06:00 3 03/07/22 05:30 3 03/07/22 05:10 03/07/22 05:00 03/07/22 05:00 03/07/22 04:50 03/07/22 04:30 03/07/22 04:21 03/07/22 04:27 03/07/22 04:25 Pain Intensity Abdomen: Pain Intensity: 4 Transfer of Care Handoff Completed per policy Notes Mental Status: alert / awake / arousable and participated in evaluation Patient Amnestic to Procedure: Yes Nausea / Vomiting: adequately controlled Pain: adequately controlled Airway Patency, RR, SpO2: stable & adequate BP & HR: stable & adequate Hydration State: stable & adequate Anesthetic Complications: no major complications apparent and Pt Satisfied with anesthetic care
[2022-03-07] MEDS ORDERED: SODIUM CHLORIDE 0.9% 1000ML 1,000 ML IV SCH (09:36)
[2022-03-07] MEDS ORDERED: HYDROmorphone INJ 0.5 MG/0.5 ML SYR IV PRN (09:36)
[2022-03-07] MEDS ORDERED: carvediloL 25 MG TAB PO SCH ×2 (09:36→21:00)
[2022-03-07] MEDS ORDERED: NITROGLYCERIN SL 0.4 MG/TAB TAB SL PRN (09:36)
[2022-03-07] MEDS: ACETAMINOPHEN 1,000 MG/100 ML VIAL IV SCH ×2 (10:51→22:02)
[2022-03-07] MEDS: ASPIRIN 81 MG ECTAB PO SCH (11:53)
[2022-03-07] MEDS: D5W AND 1/2NSS 1,000 ML IV SCH (12:00)
--- NOTE | 2022-03-07 12:05 | Nephrology Consultation ---
Date of Consultation March 07, 2022 Assessment & Plan (1) ESRD (end stage renal disease): BP and volume status are acceptable. Electrolytes normal. There is no emergent indication for HD at this time. Judi completed treatment yesterday as an outpatient without complications. Next anticipated HD is Wednesday per MWF schedule. Please maintain a daily fluid restriction of 1.2 L and maintain renal dietary restrictions once she resumes her diet. Outpatient Rx is MWF x 4 hours on a 180 optiflux with Qb 400 via LUE AVF, Qd 800. Typically requires 2 K bath. EDW 98.5 kg. Recently leaving HD at 98 kg. Medications are appropriately dosed for kidney dysfunction. (2) Anemia: Hgb 11.4 on 03/04. Hemoglobin has been consistently >11 and she has not required ELVIA therapy with HD. (3) Small bowel obstruction: Secondary to incarcerated ventral hernia. Remains NPO. IV D5 1/2NS infusing. Pain controlled. (4) Incarcerated ventral hernia: s/p ex lap and ventral hernia repair. (5) Hypertension: BP acceptable. Resume home antihypertensives. Torsemide held for now. (6) Pulmonary HTN: Volume status acceptable. No signs of decompensated CHF. Document strict I/O's and daily weights. History of Present Illness Reason for Consultation: ESRD on HD Requesting Physician: Waqas Love DO Attending Physician: Waqas Love DO History of Present Illness Mrs. 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 She dialyzes on a MWF schedule at [facility] under the care of Dr. Alvarado. Judi completed her last HD treatment yesterday. HD performed using a LUE AVF which was placed by dr. Cortes in August 2020. The fistula has been functioning well. Tr eatments have been uncomplicated. Judi tolerates HD well. Outpatient Rx: MWF x 4 hours on a 180 optiflux with Qb 400 and Qd 800; 2K, 2 calcium. EDW 98.5 kg. BP has been running slightly high with IDWG >3 kg. Judi did tolerate a UF challenge the other day and left HD yesterday at 98 kg s/p UF 3.3 L. Medical history is also notable for hypertension, a single episode of atrial fibrillation (not on chronic anticoagulation), chronic left hydronephrosis, bilateral renal cysts, history of nephrolithiasis, CAD with PTCA stent x 2 RVA 04/03, pulmonary hypertension, and right heart failure. She resides at [facility]. Judi presented to [facility] yesterday with acute abdominal pain, nausea, and vomiting. Evaluation notable for SBO secondary to incarcerated ventral hernia. She was taken to the operating room this morning by Dr. Love for ex lap and ventral hernia repair. She tolerated surgery well with minimal EBL. Judi was seen and evaluated in her hospital room following surgery. She was resting comfortable with no acute complaints. She denied notable pain. I discussed the plan of care with Dr. Jorgensen this AM. Allergies Allergy/AdvReac Type Severity Reaction Status Date / Time ampicillin Allergy Mild pruritus Verified 04/15/21 06:33 lisinopril Allergy Unknown Unknown Verified 04/15/21 06:33 reaction streptomycin Allergy Unknown Unknown Verified 04/15/21 06:33 reaction sulfamethoxazole AdvReac Intermediate "walking Verified 04/15/21 06:33 on eggs shells" feeling trimethoprim AdvReac Intermediate "walking Verified 04/15/21 06:33 on eggs shells" feeling Home Medications Medication Instructions Recorded Confirmed Type CPAP Supplies #1 ea 04/12/19 10/01/20 Rx clopidogrel 75 mg tablet (Plavix) 75 mg PO QAM 08/01/19 04/15/21 History ergocalciferol (vitamin D2) 1,250 50,000 unit PO MONTHLY #3 caps 01/01/20 04/15/21 Rx mcg (50,000 unit) capsule aspirin 81 mg tablet,delayed 81 mg PO QAM 05/02/20 04/15/21 History release nitroglycerin 0.4 mg sublingual 0.4 mg sublingual UD PRN chest 05/09/20 04/15/21 Rx tablet (Nitrostat) pain #25 tabs acetaminophen 325 mg tablet 650 mg PO Q4H PRN Pain 07/18/20 04/15/21 History (Tylenol) acetaminophen 500 mg capsule 500 mg PO BID 07/18/20 04/15/21 History amino ac-protein hydro-whey 1 ea PO BID 07/18/20 04/15/21 History protein 10 gram-100 kcal/30 mL oral liquid (ProSource) atorvastatin 80 mg tablet 80 mg PO HS 07/18/20 04/15/21 History bisacodyl 10 mg rectal suppository 10 mg WA Q48H PRN Constipation 07/18/20 04/15/21 History (Dulcolax (bisacodyl)) carvedilol 25 mg tablet 25 mg PO HS 07/18/20 04/15/21 History carvedilol 25 mg tablet 25 mg PO QAM 07/18/20 04/15/21 History isosorbide mononitrate 60 mg 60 mg PO QPM 07/18/20 04/15/21 History tablet,extended release 24 hr phenyleph-shark liver 1 applic WA DAILY PRN Hemorrhoids 07/18/20 04/15/21 History ldn-aayydn-zut rectal cream torsemide 10 mg tablet 10 mg PO QAM 07/18/20 04/15/21 History torsemide 10 mg tablet 10 mg PO QPM 07/18/20 04/15/21 History tramadol 50 mg tablet 25 mg PO BID 07/18/20 04/15/21 History calcium acetate(phosphat bind) 667 667 mg PO TID 08/21/20 04/15/21 History mg tablet nystatin 100,000 unit/gram topical 1 applic topical BID PRN Rash 08/21/20 04/15/21 History cream Colace 100 mg PO BID 03/07/22 03/07/22 History Nephrocaps 1 cap PO DAILY 03/07/22 03/07/22 History nystatin 100,000 unit/gram topical 1 applic topical BID PRN skin fold 03/07/22 03/07/22 History powder rash sennosides 8.6 mg tablet (senna) 8.6 mg PO QAM 03/07/22 03/07/22 History Patient History Medical History (Updated 03/07/22 @ 12:23 by Semaj Nascimento DO) Anemia chronic, baseline hgb 8-10 range per chart review CAD (coronary artery disease) IPMI s/p RCA stents x2 (2011) Chronic diastolic CHF (congestive heart failure) COPD (chronic obstructive pulmonary disease) Diabetes mellitus, type 2 Diet controlled ESRD (end stage renal disease) Dialysis M/W/F (unknown location) Gout History of nephrolithiasis History of ventricular tachycardia RFA s/p RVOT VTACH (no nown recurrence since 2014 ablation per cardiology records Hyperlipidemia Hyperparathyroidism LBBB (left bundle branch block) chronic dating back to at least 2017 stress test, echo done 08/2019 Lone atrial fibrillation Lone event (2013) d/t electrolyte abnormalities with no known recurrence therefore anticoagulation therapy "not required" per heart failure clinic records Myocardial Infarction 2011 Obesity Osteoarthritis Pulmonary hypertension Moderate to severe pulmonary hypertension. RVSP 59 mmHg. Sleep apnea CPAP + O2 2L HS Umbilical hernia Venous stasis dermatitis of both lower extremities Weakness gait abnormality Surgical History H/O cardiac catheterization 2006, 2011 (stents x2) History of appendectomy History of cataract surgery R/L History of cystoscopy cysto/stent exchange: 02/20/19: MAC sedation at [facility] cysto/stent exchange: 08/03/19: MAC sedation at [facility] cysto/stent removal: 07/30/20: MAC at [facility] History of tonsillectomy Hx of prior ablation treatment RFA s/p RVOT VTACH (no recurrence since 2014 ablation per cardio records) Family History Unknown Hypertension Father , age 53 Lung cancer Mother , age 59 Cancer Other No family history of adverse response to anesthesia Denies family history of Kidney disease Social History Smoking Status: Never smoker Second Hand Exposure: No; Do You Dip or Chew Tobacco: No; Tobacco Cessation Education Requested by Patient: No Hx Alcohol Use: No Hx Substance Use: No Preferred Language: Chilean Communication Ability: Effective Visual Impairment: No Limitations Hearing Ability: Normal [employer]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 Architect Required: No Beliefs That Will Affect Care: None marital status: / Current Living Situation: [facility] Current Living Situation Comment: Lives with special needs daughter How many Children do You have: 3 Other Information That Helps Us Care for You: No other: 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; 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 Feels Safe at Home: Yes Safety Concerns: Feels Safe At This Time Childhood Exposure to Second-Hand Smoke: No Dental Care, Regularly: No Physical Activity Frequency: Does not Exercise Seatbelt Use: always Sunscreen Use: Yes Assistive Devices: Walker and Wheelchair Review of Systems Review of Systems: All systems reviewed & are unremarkable except as noted in HPI & below Physical Exam Constitutional: well developed and + frail appearing; no acute distress and not ill appearing Eyes: + anicteric sclerae; no corneal abnormality ENMT: Mouth: + dry oral mucous membranes; no oral mucosal abnormality Neck: normal visual inspection and trachea midline Respiratory: normal respiratory effort Auscultation: lungs clear to auscultation bilaterally Cardiovascular: Rate/Rhythm: regular rate Heart Sounds: normal S1, normal S2 and + murmur Extremities: + pedal edema and + AV fistula Gastrointestinal (Abdomen): Inspection/Auscultation: + abdomen distended and + hypoactive bowel sounds Surgical incision with dressing SDI, randy drain Musculoskeletal: Extremities: no cyanosis and no clubbing Skin: + turgor decreased; no lesions Neurologic: Motor/Sensory: no tremor and no asterixis Psychiatric: Orientation: alert and oriented x 3 Results & Data ([facility]) Vital Signs (Past 12 Hours) Vital Signs Temp Pulse Pulse Resp BP BP Pulse Ox 03/07/22 09:36 37.1 C 100 H 16 117/53 L 94 03/07/22 09:52 37.1 C 98 H 16 117/53 L 94 03/07/22 09:30 36 C L 98 H 12 122/63 94 03/07/22 09:15 97 H 14 122/65 93 03/07/22 09:05 98 H 15 128/62 93 03/07/22 08:55 100 H 21 131/66 93 03/07/22 08:45 101 H 20 125/64 95 03/07/22 08:35 99 H 20 129/67 98 03/07/22 08:25 98 H 17 124/65 98 03/07/22 08:17 36 C L 90 15 120/69 98 03/07/22 06:23 105 H 18 131/69 98 03/07/22 06:00 98 H 16 132/65 97 03/07/22 05:30 97 H 16 140/68 93 03/07/22 05:10 99 H 13 03/07/22 05:00 97 H 13 03/07/22 05:00 137/76 03/07/22 04:50 98 H 18 96 03/07/22 04:30 129 H 17 95 03/07/22 04:21 96 H 19 97 03/07/22 04:27 95 H 20 94 12/17/22 04:25 36.8 C 75 23 146/68 H 97 O2 Del Method O2 Flow Rate 03/07/22 09:36 Nasal Cannula 2 03/07/22 09:52 Nasal Cannula 2 03/07/22 09:30 Nasal Cannula 2 03/07/22 09:15 Nasal Cannula 2 03/07/22 09:05 Nasal Cannula 2 03/07/22 08:55 Nasal Cannula 2 03/07/22 08:45 Nasal Cannula 2 03/07/22 08:35 Oxymask 4 03/07/22 08:25 Oxymask 6 03/07/22 08:17 Oxymask 6 03/07/22 06:23 Nasal Cannula 3 03/07/22 06:00 Nasal Cannula 3 03/07/22 05:30 Nasal Cannula 3 03/07/22 05:10 03/07/22 05:00 03/07/22 05:00 03/07/22 04:50 03/07/22 04:30 03/07/22 04:21 03/07/22 04:27 Room Air 03/07/22 04:25 Room Air Laboratory Results Laboratory Results - last 24 hr 03/07/22 03/07/22 03/07/22 04:25 04:25 04:25 WBC 12.52 H RBC 3.73 L Hgb 12.7 Hct 39.1 MCV 104.8 H MCH 34.0 MCHC 32.5 RDW Std Deviation 50.6 H RDW Coeff of Nicolasa 13.2 Plt Count 169 MPV 10.5 Immature Gran % (Auto) 0.7 Neut % (Auto) 76.6 Lymph % (Auto) 15.7 Bill[place] % (Auto) 4.4 Eos % (Auto) 2.0 Baso % (Auto) 0.6 Neut # (Auto) 9.60 H Lymph # (Auto) 1.96 Billings # (Auto) 0.55 Eos # (Auto) 0.25 Baso # (Auto) 0.07 Immature Gran # (Auto) 0.09 H Sodium 136 Potassium 3.8 Chloride 94 L Carbon Dioxide 28 Anion Gap 14 H BUN 53 H Creatinine 3.96 H Est Cr Clr Drug Dosing Not Reportable Est GFR ( Amer) 11.1 Est GFR (Non-Af Amer) 9.6 BUN/Creatinine Ratio 13.4 Glucose 180 H POC Glucose Calcium 9.3 Magnesium 2.1 Total Bilirubin 0.6 Direct Bilirubin 0.2 AST 17 ALT 11 Alkaline Phosphatase 204 H Troponin I High Sens 110.4 H* Total Protein 8.0 Albumin 4.3 Lipase 46 Procalcitonin 0.42 SARS-CoV-2, RNA, NAAT 03/07/22 03/07/22 03/07/22 05:15 08:55 10:37 WBC RBC Hgb Hct MCV MCH MCHC RDW Std Deviation RDW Coeff of Nicolasa Plt Count MPV Immature Gran % (Auto) Neut % (Auto) Lymph % (Auto) [place] % (Auto) Eos % (Auto) Baso % (Auto) Neut # (Auto) Lymph # (Auto) [place] # (Auto) Eos # (Auto) Baso # (Auto) Immature Gran # (Auto) Sodium Potassium Chloride Carbon Dioxide Anion Gap BUN Creatinine Est Cr Clr Drug Dosing Est GFR ( Amer) Est GFR (Non-Af Amer) BUN/Creatinine Ratio Glucose POC Glucose 169 H Calcium Magnesium Total Bilirubin Direct Bilirubin AST ALT Alkaline Phosphatase Troponin I High Sens Cancelled Total Protein Albumin Lipase Procalcitonin SARS-CoV-2, RNA, NAAT NEGATIVE 03/07/22 03/07/22 11:16 11:42 WBC RBC Hgb Hct MCV MCH MCHC RDW Std Deviation RDW Coeff of Nicolasa Plt Count MPV Immature Gran % (Auto) Neut % (Auto) Lymph % (Auto) [place] % (Auto) Eos % (Auto) Baso % (Auto) Neut # (Auto) Lymph # (Auto) [place] # (Auto) Eos # (Auto) Baso # (Auto) Immature Gran # (Auto) Sodium Potassium Chloride Carbon Dioxide Anion Gap BUN Creatinine Est Cr Clr Drug Dosing Est GFR ( Amer) Est GFR (Non-Af Amer) BUN/Creatinine Ratio Glucose POC Glucose 155 H Calcium Magnesium Total Bilirubin Direct Bilirubin AST ALT Alkaline Phosphatase Troponin I High Sens Pending Total Protein Albumin Lipase Procalcitonin SARS-CoV-2, RNA, NAAT PG Care Time/CCT Total # of Minutes Spent Total Time Spent with Patient: Total time spent is greater than 50% in coordination of care (as documented) at patient's floor/unit and/or counseling patient: Coding Level of Care Code 58078 Inpt Consult Level 4 Diagnoses ESRD (end stage renal disease) N18.6 Anemia N18.6; D63.1; Z99.2 Anemia type: due to chronic kidney disease Chronic kidney disease stage: on chronic dialysis Small bowel obstruction K56.609 Incarcerated ventral hernia K43.6 Hypertension I10 Hypertension type: unspecified Pulmonary HTN I27.20 (1) Anemia Anemia type: due to chronic kidney disease Chronic kidney disease stage: on chronic dialysis Qualified Code(s): N18.6 - End stage renal disease; D63.1 - Anemia in chronic kidney disease; Z99.2 - Dependence on renal dialysis (2) Hypertension Hypertension type: unspecified Qualified Code(s): I10 - Essential (primary) hypertension
--- NOTE | 2022-03-07 12:18 | Hospitalist Consultation ---
Date of Consultation March 07, 2022 Assessment & Plan (1) Incarcerated ventral hernia: Admitted for incarcerated ventral hernia causing small bowel obstruction and had urgent laparotomy with partial omentectomy, and incarcerated ventral hernia repair -Postoperative care as per general surgery -Pain control as ordered with IV Dilaudid as needed -Keep n.p.o. except for meds with sips -Okay for D5 1/2NS at low rate of 50 mL/h as per nephrology while n.p.o. only -Watch for return of bowel function and then advance diet as tolerated -Reji drain in place -Follow CBC, BMP in the morning (2) CAD (coronary artery disease), [place] coronary artery: With a history of RCA stents in the past With elevated troponin on arrival at 110 and repeat troponin approximately 6 hours later rising to 3564 (I was not alerted to this critical value and therefore did not note the rise until later in the day), however patient remains without any chest pains and no ischemic changes on EKG although with chronic LBBB Holding home Plavix, but continue aspirin, carvedilol, and isosorbide Holding home statin Elevated troponin could be demand ischemia in the setting of stress of incarcerated ventral hernia with nausea and vomiting and surgical repair with underlying known CAD -Continue to trend serial troponin -Check echocardiogram for wall motion abnormalities -Consider cardiology consultation if troponin continues to trend much higher (3) (HFpEF) heart failure with preserved ejection fraction: Volume managed with dialysis Holding home torsemide Renal diet, strict I's and O's (4) Anemia: Hemoglobin mildly low at 12.7 although suspect this is somewhat hemoconcentrated given recent nausea/vomiting Most likely has anemia of chronic renal disease but with elevated MCV, could also have B12 or folate deficiency MCV elevated at 104 -Check B12, folate, iron studies, and TSH in the morning -Follow CBC (5) ESRD (end stage renal disease): Receives hemodialysis on MWF Follows with [facility] nephrology Appreciate nephrology consultation-no need for dialysis today Okay with D5 half-normal saline at 50 mL/h while n.p.o. Watch volume status Holding home PhosLo, Nephrocaps, torsemide Follow renal panel in the morning (6) Hypertension: Continue home carvedilol, isosorbide Holding home torsemide Blood pressures are controlled (7) Hyperlipidemia: Holding home statin until reliably taking p.o. 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 She lives at [facility] at [facility] and will return there at discharge I discussed her care with her son, Dr. Issac Watson, on the phone. DNR/DNI History of Present Illness Reason for Consultation: Incarcerated hernia, ESRD, heart failure Requesting Physician: Dr. Love Attending Physician: Waqas Love, History of Present Illness This patient is an 87-year-old female with a history of ESRD on HD Wednesday, HTN, lone atrial fibrillation not on anticoagulation, RVOT VT status post RFA, chronic diastolic CHF, CAD status post RCA stent x2, pulmonary hypertension, LBBB, GURPREET, anemia of chronic disease, and hyperlipidemia who presents to the hospital with sharp abdominal pain x1 day and increase in swelling and pain around her umbilicus after eating dinner. She also had nausea and vomiting. No fevers or chills. In the ER, she was found to have a periumbilical ventral hernia causing small bowel obstruction and was admitted by the general surgery team for urgent surgery. She was taken to the operating room after admission and had an exploratory laparotomy, partial omentectomy, and an incarcerated ventral hernia repair. I saw her when she returned to the PACU after recovery in the PACU. She was doing very well. She was awake and alert and oriented x3. She denied any abdominal pain or further nausea. She denied chest pains or shortness of breath. The hospitalist service was consulted to help manage her medical issues postoperatively. I did discuss her care with nephrology. Allergies Allergy/AdvReac Type Severity Reaction Status Date / Time ampicillin Allergy Mild pruritus Verified 04/15/21 06:33 lisinopril Allergy Unknown Unknown Verified 04/15/21 06:33 reaction streptomycin Allergy Unknown Unknown Verified 04/15/21 06:33 reaction sulfamethoxazole AdvReac Intermediate "walking Verified 04/15/21 06:33 on eggs shells" feeling trimethoprim AdvReac Intermediate "walking Verified 04/15/21 06:33 on eggs shells" feeling Home Medications Medication Instructions Recorded Confirmed Type CPAP Supplies #1 ea 04/12/19 03/07/22 Rx clopidogrel 75 mg tablet (Plavix) 75 mg PO QAM 08/01/19 03/07/22 History ergocalciferol (vitamin D2) 1,250 50,000 unit PO MONTHLY #3 caps 01/01/20 03/07/22 Rx mcg (50,000 unit) capsule aspirin 81 mg tablet,delayed 81 mg PO QAM 05/02/20 03/07/22 History release nitroglycerin 0.4 mg sublingual 0.4 mg sublingual UD PRN chest 05/09/20 03/07/22 Rx tablet (Nitrostat) pain #25 tabs acetaminophen 325 mg tablet 650 mg PO Q4H PRN Pain 07/18/20 03/07/22 History (Tylenol) acetaminophen 500 mg capsule 500 mg PO BID 07/18/20 03/07/22 History amino ac-protein hydro-whey 1 ea PO BID 07/18/20 03/07/22 History protein 10 gram-100 kcal/30 mL oral liquid (ProSource) atorvastatin 80 mg tablet 80 mg PO HS 07/18/20 03/07/22 History bisacodyl 10 mg rectal suppository 10 mg ND Q48H PRN Constipation 07/18/20 03/07/22 History (Dulcolax (bisacodyl)) carvedilol 25 mg tablet 12.5 mg PO HS 07/18/20 03/07/22 History carvedilol 25 mg tablet 12.5 mg PO QAM 07/18/20 03/07/22 History isosorbide mononitrate 60 mg 60 mg PO QPM 07/18/20 03/07/22 History tablet,extended release 24 hr phenyleph-shark liver 1 applic ND DAILY PRN Hemorrhoids 07/18/20 03/07/22 History gyk-jsixjz-xuo rectal cream torsemide 10 mg tablet 10 mg PO QAM 07/18/20 03/07/22 History torsemide 10 mg tablet 10 mg PO QPM 07/18/20 03/07/22 History tramadol 50 mg tablet 25 mg PO TID PRN Pain 07/18/20 03/07/22 History calcium acetate(phosphat bind) 667 2,001 mg PO TIDM 08/21/20 03/07/22 History mg tablet nystatin 100,000 unit/gram topical 1 applic topical BID PRN Rash 08/21/20 03/07/22 History cream Colace 100 mg PO BID 03/07/22 03/07/22 History Nephrocaps 1 cap PO DAILY 03/07/22 03/07/22 History nystatin 100,000 unit/gram topical 1 applic topical BID PRN skin fold 03/07/22 03/07/22 History powder rash sennosides 8.6 mg tablet (senna) 8.6 mg PO QAM 03/07/22 03/07/22 History Patient History Medical History Anemia chronic, baseline hgb 8-10 range per chart review CAD (coronary artery disease) IPMI s/p RCA stents x2 (2011) Chronic diastolic CHF (congestive heart failure) COPD (chronic obstructive pulmonary disease) Diabetes mellitus, type 2 Diet controlled ESRD (end stage renal disease) Dialysis M/W/F (unknown location) Gout History of nephrolithiasis History of ventricular tachycardia RFA s/p RVOT VTACH (no nown recurrence since 2014 ablation per cardiology records Hyperlipidemia Hyperparathyroidism LBBB (left bundle branch block) chronic dating back to at least 2017 stress test, echo done 08/2019 Lone atrial fibrillation Lone event (2013) d/t electrolyte abnormalities with no known recurrence therefore anticoagulation therapy "not required" per heart failure clinic rec ords Myocardial Infarction 2011 Obesity Osteoarthritis Pulmonary hypertension Moderate to severe pulmonary hypertension. RVSP 59 mmHg. Sleep apnea CPAP + O2 2L HS Umbilical hernia Venous stasis dermatitis of both lower extremities Weakness gait abnormality Surgical History H/O cardiac catheterization 2006, 2011 (stents x2) History of appendectomy History of cataract surgery R/L History of cystoscopy cysto/stent exchange: 02/20/19: MAC sedation at [facility] cysto/stent exchange: 08/03/19: MAC sedation at [facility] cysto/stent removal: 07/30/20: MAC at [facility] History of tonsillectomy Hx of prior ablation treatment RFA s/p RVOT VTACH (no recurrence since 2014 ablation per cardio records) Family History Unknown Hypertension Father , age 53 Lung cancer Mother , age 59 Cancer Other No family history of adverse response to anesthesia Denies family history of Kidney disease Social History Smoking Status: Never smoker Second Hand Exposure: No; Hx Alcohol Use: No Hx Substance Use: No Preferred Language: Maltese Communication Ability: Effective Visual Impairment: No Limitations Hearing Ability: Normal Developer Evangelist Required: No Beliefs That Will Affect Care: None marital status: / Current Living Situation: Longterm Current Living Situation Comment: Lives with special needs daughter How many Children do You have: 3 other: 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; 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 Feels Safe at Home: Yes Childhood Exposure to Second-Hand Smoke: No Dental Care, Regularly: No Physical Activity Frequency: Does not Exercise Seatbelt Use: always Sunscreen Use: Yes Assistive Devices: Walker and Wheelchair Review of Systems Review of Systems: All systems reviewed & are unremarkable except as noted in HPI & below Physical Exam Constitutional: WD/WN, vitals as above Eyes: + anicteric sclerae and EOM intact bilaterally ENMT: Ears: no hearing impairment Neck: trachea midline, no thyromegaly Respiratory: normal respiratory effort, lungs clear to auscultation Cardiovascular: Rate/Rhythm: regular rate and regular rhythm Heart Sounds: no murmur Extremities: + edema (Chronic 2+ woody edema of the feet and legs bilaterally) and + AV fistula (Left forearm with palpable thrill) Chest (Breasts): Chest: normal inspection of chest Gastrointestinal (Abdomen): Inspection/Auscultation: + hypoactive bowel sounds; + abdomen abnormal to inspection (Midline dressing in place clean dry and intact, drain in place) and abdomen not distended Percussion/Palpation: abdomen soft; abdomen nontender Musculoskeletal: Extremities: no cyanosis and no clubbing Skin: Significant ichthyosis of legs and feet bilaterally With white exudate between most of toes with macerated skin Right second toe with medial small superficial ulcer with mild surrounding erythema of the distal toe Neurologic: moves all extremities and awake; no focal motor deficits Psychiatric: A+Ox3, euthymic affect Results & Data Results & Data ([facility]) Vital Signs (Past 12 Hours) Vital Signs Temp Pulse Pulse Resp BP BP Pulse Ox 03/07/22 09:36 37.1 C 100 H 16 117/53 L 94 03/07/22 09:52 37.1 C 98 H 16 117/53 L 94 03/07/22 09:30 36 C L 98 H 12 122/63 94 03/07/22 09:15 97 H 14 122/65 93 03/07/22 09:05 98 H 15 128/62 93 03/07/22 08:55 100 H 21 131/66 93 03/07/22 08:45 101 H 20 125/64 95 03/07/22 08:35 99 H 20 129/67 98 03/07/22 08:25 98 H 17 124/65 98 03/07/22 08:17 36 C L 90 15 120/69 98 03/07/22 06:23 105 H 18 131/69 98 03/07/22 06:00 98 H 16 132/65 97 03/07/22 05:30 97 H 16 140/68 93 03/07/22 05:10 99 H 13 03/07/22 05:00 97 H 13 03/07/22 05:00 137/76 03/07/22 04:50 98 H 18 96 03/07/22 04:30 129 H 17 95 03/07/22 04:21 96 H 19 97 03/07/22 04:27 95 H 20 94 03/07/22 04:25 36.8 C 75 23 146/68 H 97 O2 Del Method O2 Flow Rate 03/07/22 09:36 Nasal Cannula 2 03/07/22 09:52 Nasal Cannula 2 03/07/22 09:30 Nasal Cannula 2 03/07/22 09:15 Nasal Cannula 2 03/07/22 09:05 Nasal Cannula 2 03/07/22 08:55 Nasal Cannula 2 03/07/22 08:45 Nasal Cannula 2 03/07/22 08:35 Oxymask 4 03/07/22 08:25 Oxymask 6 03/07/22 08:17 Oxymask 6 03/07/22 06:23 Nasal Cannula 3 03/07/22 06:00 Nasal Cannula 3 03/07/22 05:30 Nasal Cannula 3 03/07/22 05:10 03/07/22 05:00 03/07/22 05:00 03/07/22 04:50 03/07/22 04:30 03/07/22 04:21 03/07/22 04:27 Room Air 03/07/22 04:25 Room Air Laboratory Results Labs reviewed Diagnostic Findings Abdomen/Pelvis CT 03/07/22 04:27 CT SCAN OF THE ABDOMEN AND PELVIS WITHOUT IV CONTRAST CLINICAL HISTORY: Generalized abdominal pain. Vomiting. COMPARISON STUDY: Abdominal CT dated 08/26/2019. TECHNIQUE: CT scan of the abdomen and pelvis is performed from the lung bases to the proximal femora. Images are reviewed in the axial, sagittal, and coronal planes. IV contrast was not administered for this examination. Note that the examination is suboptimal without oral and IV contrast. There is also streak artifact from the arms which could not be elevated above the abdomen. A dose lowering technique was utilized adhering to the principles of ALARA. A small hiatal hernia is noted. CT DOSE: 1534.95 mGy.cm FINDINGS: Lung bases: The heart is enlarged and without pericardial effusion. The coronary arteries are densely calcified. The lung bases are clear noting bibasilar scarring/atelectasis. Liver: The unenhanced liver is enlarged, measuring 19.7 cm in length. The liver is otherwise normal in contour and attenuation. There is no intrahepatic biliary ductal dilatation. Gallbladder: Unremarkable. Spleen: Normal in size and attenuation. Pancreas: The unenhanced pancreas is atrophic and grossly unremarkable. Adrenal glands: Unremarkable. Kidneys: The unenhanced kidneys are atrophic and without hydronephrosis. There is a 3 mm nonobstructing calculus in the right lower pole. No left ureteral calculi are identified and there is no ureteral stone. There is no evidence of contour deforming renal mass lesion. Bilateral renal cysts measuring 2.6 cm. Additional indeterminant cortical hypodensities measuring up to 2.7 cm have been present on prior examinations. The largest in the interpolar left kidney has decreased in size from 08/26/2019. Abdominal vasculature: The abdominal aorta is normal in course and caliber noting advanced atherosclerotic calcification. Bowel: There is a large ventral hernia in the pelvic midline which contains a segment of small bowel in the transverse colon. The small bowel within and upstream to the hernia is distended and fluid-filled with loops measuring up to 3.2 cm diameter. The small bowel exiting the hernia is decompressed, as is the colon. This is consistent with a small bowel obstruction at the level of the hernia. No focally thick-walled bowel loops are identified. There is no pneumatosis intestinalis or portal venous gas. There is moderate to advanced colonic diverticulosis without CT evidence of acute diverticulitis. The appendix is not identified. Peritoneum: There is no intraperitoneal free air or abdominal ascites. Lymphadenopathy: None. Pelvic viscera: The bladder is decompressed and not well evaluated. Uterine fibroids are suggested. No adnexal lesion is seen. Skeletal structures: The skeletal structures are osteopenic. There is moderate l umbosacral spondylosis. No lytic or blastic lesions are seen. IMPRESSION: 1. Small bowel obstruction secondary to an incarcerated loop of small bowel within a ventral hernia in the pelvis. Surgical assessment is advised. 2. No intraperitoneal free air is seen. There are no focally thick-walled bowel loops, and no pneumatosis intestinalis or portal venous gas. 3. Right-sided nephrolithiasis. 4. Advanced colonic diverticulosis without CT evidence of acute diverticulitis. 5. Cardiomegaly. 6. Additional findings as above. ACT 112: Negative or not required by law. Electronically signed by: Ervin Cat M.D. 03/07/2022 6:41 AM Chest X-Ray 03/07/22 04:28 SINGLE VIEW CHEST CLINICAL HISTORY: Dyspnea. FINDINGS: An AP, portable, upright chest radiograph is compared to study dated 05/07/2020. The heart is enlarged noting atherosclerotic calcification of the thoracic aorta. The pulmonary vasculature is noncongested. Chronic interstitial thickening is similar to previous. Scarring/atelectasis is noted at the lung bases. The lungs and pleural spaces are otherwise clear. No pneumothorax is seen. The skeletal structures are osteopenic. The bony thorax is grossly intact. IMPRESSION: Cardiomegaly with no acute cardiopulmonary abnormality. ACT 112: Negative or not required by law. Electronically signed by: Ervin Cat M.D. 03/07/2022 6:58 AM ECG Additional Comments: EKG on 03/07/2022 at 4:21 AM with normal sinus rhythm, rate 96, LBBB PG Care Time/CCT Total # of Minutes Spent Total Time Spent with Patient: Total time spent is greater than 50% in coordination of care (as documented) at patient's floor/unit and/or counseling patient: Coding Level of Care Code 66748 Inpt Consult Level 4 Diagnoses Incarcerated ventral hernia K43.6 CAD (coronary artery disease), [place] coronary artery I25.10 (HFpEF) heart failure with preserved ejection fraction I50.30 Anemia N18.6; D63.1; Z99.2 Anemia type: due to chronic kidney disease Chronic kidney disease stage: on chronic dialysis ESRD (end stage renal disease) N18.6 Hypertension I10 Hypertension type: unspecified Hyperlipidemia E78.5 Hyperlipidemia type: unspecified LBBB (left bundle branch block) I44.7 Lone atrial fibrillation I48.91 Sleep apnea G47.33 Sleep apnea type: obstructive Open toe wound S91.109A (1) Anemia Anemia type: due to chronic kidney disease Chronic kidney disease stage: on chronic dialysis Qualified Code(s): N18.6 - End stage renal disease; D63.1 - Anemia in chronic kidney disease; Z99.2 - Dependence on renal dialysis (2) Hypertension Hypertension type: unspecified Qualified Code(s): I10 - Essential (primary) hypertension (3) Hyperlipidemia Hyperlipidemia type: unspecified Qualified Code(s): E78.5 - Hyperlipidemia, unspecified (4) Sleep apnea Sleep apnea type: obstructive Qualified Code(s): G47.33 - Obstructive sleep apnea (adult) (pediatric)
[2022-03-07] MEDS ORDERED: COUGH DROP (SUGAR FREE) LOZ 24 LOZ/1 BOX BUCCAL ONE (20:48)
[2022-03-07] MEDS: ISOSORBIDE MONO EXTENDED REL 60 MG TABCR PO SCH (22:09)
[2022-03-07] MEDS: carvediloL 12.5 MG TAB PO SCH (22:09)
[2022-03-08] MEDS: ACETAMINOPHEN 1,000 MG/100 ML VIAL IV SCH ×3 (06:15→22:27)
[2022-03-08 07:19] LABS: Basophils # (auto) 0.05 K/uL (0-0.2); Basophils % (auto) 0.4 %; Eosinophils # (auto) 0.07 K/uL (0-0.50); Eosinophils % (auto) 0.6 %; Hematocrit (blood only) 32.7 % (34.1-44.9); Hemoglobin 10.7 g/dl (12.0-16.0); Immature Granulocytes # (auto) 0.05 K/uL (0.00-0.02); Immature Granulocytes % (auto) 0.4 %; Lymphocytes # (auto) 1.77 K/uL (1.2-3.4); Lymphocytes % (auto) 14.9 %; Mean Corpuscular Hemoglobin 33.6 pg (25.0-34.0); Mean Corpuscular Hgb Conc 32.7 g/dL (32.0-36.0); Mean Corpuscular Volume 102.8 fL (80.0-100.0); Mean Platelet Volume 11.1 fL (9.4-12.3); Monocytes # (auto) 0.68 K/uL (0.24-0.82); Monocytes % (auto) 5.7 %; Neutrophils # (auto) 9.29 K/uL (1.4-6.5); Platelet Count 161 K/uL (130-400); RDW Coefficient of Variation 13.1 % (11.5-14.5); RDW Standard Deviation 49.2 fL (36.4-46.3); Red Blood Count 3.18 M/uL (3.93-5.22); White Blood Count 11.91 K/ul (4.8-10.8)
[2022-03-08 07:32] LABS: Iron 86 mcg/dl (35-150); Total Iron Binding Cap Calc 185 mcg/dl (250-450); Transferrin (FE) Percent Satur 46 % (15-50); Unsaturated Iron Binding Cap 99 mcg/dl (155-355)
[2022-03-08 07:53] LABS: Vitamin B12 585 pg/ml (180-914)
[2022-03-08] MEDS: D5W AND 1/2NSS 1,000 ML IV SCH (08:34)
[2022-03-08] MEDS: carvediloL 12.5 MG TAB PO SCH ×2 (08:35→20:55)
[2022-03-08] MEDS: ASPIRIN 81 MG ECTAB PO SCH (08:35)
[2022-03-08 08:36] LABS: Ferritin 1264.8 ng/ml (8-388); Troponin I High Sensitivity 10602.7 pg/ml (0-14)
[2022-03-08 09:06] LABS: BUN Creatinine Ratio 12.6 (10-20); Calcium 8.2 mg/dl (8.5-10.1); Creatinine Clr Calc Pharmacy 8.1 ml/min; Est GFR (African American) 7.1 ml/min; Est GFR (Non-African American) 6.1 ml/min; Potassium 4.6 mmol/L (3.5-5.1)
--- NOTE | 2022-03-08 10:05 | XCELERA ---
[id number]
--- NOTE | 2022-03-08 10:18 | Surgery Progress Note ---
Date of Service March 08, 2022 Assessment & Plan (1) Incarcerated ventral hernia: Plan: She is doing well postoperative day 1, will start clear liquids, she has no return of bowel function yet Her pain is well controlled If she starts to tolerate her liquids we can DC her IV fluids Nephrology and medicine on board for medical comanagement Encourage ambulation and I-S Continue to hold her Plavix for now, if hemoglobin is stable in the next 24 hours can restart Plavix and pharmacologic DVT prophylaxis (2) Small bowel obstruction: Admission and Anticipated Discharge Date Admission Date: March 07, 2022 Subjective Patient seen and examined. Has minimal abdominal pain. Denies nausea or vomiting. Denies flatus or BM. Vital signs stable. Physical Exam Constitutional: WD/WN, vitals as above Gastrointestinal (Abdomen): Soft, appropriately tender, dressing clean dry and intact Results & Data ([facility]) Vital Signs (Past 12 Hours) Vital Signs Temp Pulse Resp BP Pulse Ox O2 Del Method O2 Flow Rate 03/08/22 08:00 Nasal Cannula 2 03/08/22 08:05 36.7 C 87 19 117/53 L 94 Nasal Cannula 2.0 03/08/22 00:00 37.1 C 79 16 108/43 L 95 Nasal Cannula 2 PG Care Time/CCT Total # of Minutes Spent Total Time Spent with Patient: Total time spent is greater than 50% in coordination of care (as documented) at patient's floor/unit and/or counseling patient: Coding Level of Care Code None Diagnoses Incarcerated ventral hernia K43.6 Small bowel obstruction K56.609
--- NOTE | 2022-03-08 10:49 | Cardiology Consultation ---
Date of Consultation March 08, 2022 Assessment & Plan (1) Elevated troponin: (2) Cardiomyopathy: (3) LBBB (left bundle branch block): (4) CAD (coronary artery disease), [place] coronary artery: (5) History of ventricular tachycardia: Plan 1. Elevated troponin: Her troponin is significantly elevated and she has known coronary artery disease, I suspect there was an ischemic event based on the trend, her troponin seems quite elevated and with her prolonged elevation demand ischemia seems less likely. In addition she has left ventricular dysfunction although as noted below there may be other causes for that. Still I am not sure I would consider urgent evaluation of her coronary artery disease at this time. 2. Cardiomyopathy: She has been felt to have diastolic dysfunction before although she did have wall motion abnormalities on prior echocardiograms. Her left ventricular ejection fraction is worse now with possible worse wall motion abnormalities. There are several possibilities for her worsening left ventricular function. She may have had an ischemic insult this admission which could cause worsening wall motion abnormalities and perhaps overall worsening of her left ventricular function, it could be stress related, but I would favor a contribution from her left bundle branch block which can cause progressive left ventricular dysfunction and her QRS is certainly wide enough to make that a consideration. At this point she is not a candidate for a primary prevention defibrillator but a biventricular pacemaker could certainly be used. If that is the case her left ventricular function could be corrected partially with biventricular pacing. She is on moderate-dose carvedilol which could be increased if her blood pressure will tolerate it, she is not on an RONY inhibitor or Entresto which probably could be added since she is on dialysis and this may help with her left ventricular function as well. I would be in favor of medical management for now with close follow-up of her ejection fraction and symptoms with a consideration of a biventricular pacer in the future if indicated. 3. Left bundle branch block: She has longstanding left bundle branch block, the QRS duration has not changed over the last several years but could lead to progr essive cardiomyopathy. Certainly it is wide enough for that to be a consideration. 4. Coronary disease: She has known coronary artery disease, it is possible that this has progressed and that may be responsible for her troponin elevation this admission. I would not pursue invasive evaluation at this time. 5. Ventricular tachycardia: She has a history of ventricular tachycardia for which she has had ablation, to my knowledge that has been successful. I did discuss her case with her son, Dr. Issac Watson. History of Present Illness Reason for Consultation: Elevated troponin, worsening cardiomyopathy Attending Physician: Waqas Love, DO History of Present Illness This is a an 87-year-old woman with a history of hypertension, hypercholesterolemia as well as known coronary artery disease including stent placement in March 21, 2012. She has a history of paroxysmal atrial fibrillation although I do not know the burden but it is felt to be low, she is not on anticoagulation. She had a right ventricular outflow tract ventricular tachycardia for which she had ablation in 2014 which appears to have been successful. She has had difficulty with congestive heart failure and has been seen in our heart failure area although has not been seen lately. She does have end-stage renal disease and is on dialysis, her fluid balance is maintained in that manner. An echocardiogram done March 08, 2022 shows mild left ventricular dilatation with moderate left ventricular dysfunction and ejection fraction estimated 35 to 40%. The entire apex is akinetic and dilated. The basal septum is also hypokinetic. Compared to 2020 most abnormalities and the overall systolic function is worse. An electrocardiogram done March 07, 2022 shows a left bundle branch block with a QRS duration 162 ms. A prior electrocardiogram from almost 2 years ago shows a very similar finding. She presented with an incarcerated ventral hernia for which she had an exploratory laparotomy and ventral hernia repair on March 07, 2022. Throughout this event she had an elevated troponin. Her presenting high- sensitivity troponin was 110, this was 4 AM on March 07, 2022. 7 hours later it had increased to 3564, 12 hours after that to 10,936 and 7 hours later (this morning at 6 AM) it was 10,602. At the time of my evaluation she is feeling well. She is laying supine in bed, is not complaining of any chest discomfort and does not recall having any recently. She does not have orthopnea although she does not generally sleep flat, she does not describe dyspnea on exertion and she does not have difficulty with fluid retention in her legs. Overall she feels that she is doing well aside from her abdominal difficulty. Allergies Allergy/AdvReac Type Severity Reaction Status Date / Time ampicillin Allergy Mild pruritus Verified 04/15/21 06:33 lisinopril Allergy Unknown Unknown Verified 04/15/21 06:33 reaction streptomycin Allergy Unknown Unknown Verified 04/15/21 06:33 reaction sulfamethoxazole AdvReac Intermediate "walking Verified 04/15/21 06:33 on eggs shells" feeling trimethoprim AdvReac Intermediate "walking Verified 04/15/21 06:33 on eggs shells" feeling Home Medications Medication Instructions Recorded Confirmed Type CPAP Supplies #1 ea 04/12/19 03/07/22 Rx clopidogrel 75 mg tablet (Plavix) 75 mg PO QAM 08/01/19 03/07/22 History ergocalciferol (vitamin D2) 1,250 50,000 unit PO MONTHLY #3 caps 01/01/20 Rx mcg (50,000 unit) capsule aspirin 81 mg tablet,delayed 81 mg PO QAM 05/02/20 03/07/22 History release nitroglycerin 0.4 mg sublingual 0.4 mg sublingual UD PRN chest 05/09/20 03/07/22 Rx tablet (Nitrostat) pain #25 tabs acetaminophen 325 mg tablet 650 mg PO Q4H PRN Pain 07/18/20 03/07/22 History (Tylenol) acetaminophen 500 mg capsule 500 mg PO BID 07/18/20 03/07/22 History amino ac-protein hydro-whey 1 ea PO BID 07/18/20 03/07/22 History protein 10 gram-100 kcal/30 mL oral liquid (ProSource) atorvastatin 80 mg tablet 80 mg PO HS 07/18/20 03/07/22 History bisacodyl 10 mg rectal suppository 10 mg WI Q48H PRN Constipation 07/18/20 03/07/22 History (Dulcolax (bisacodyl)) carvedilol 25 mg tablet 12.5 mg PO HS 07/18/20 03/07/22 History carvedilol 25 mg tablet 12.5 mg PO QAM 07/18/20 03/07/22 History isosorbide mononitrate 60 mg 60 mg PO QPM 07/18/20 03/07/22 History tablet,extended release 24 hr phenyleph-shark liver 1 applic WI DAILY PRN Hemorrhoids 07/18/20 03/07/22 History [id number] rectal cream torsemide 10 mg tablet 10 mg PO QAM 07/18/20 03/07/22 History torsemide 10 mg tablet 10 mg PO QPM 07/18/20 03/07/22 History tramadol 50 mg tablet 25 mg PO TID PRN Pain 07/18/20 03/07/22 History calcium acetate(phosphat bind) 667 2,001 mg PO TIDM 08/21/20 03/07/22 History mg tablet nystatin 100,000 unit/gram topical 1 applic topical BID PRN Rash 08/21/20 03/07/22 History cream Colace 100 mg PO BID 03/07/22 03/07/22 History Nephrocaps 1 cap PO DAILY 03/07/22 03/07/22 History nystatin 100,000 unit/gram topical 1 applic topical BID PRN skin fold 03/07/22 03/07/22 History powder rash sennosides 8.6 mg tablet (senna) 8.6 mg PO QAM 03/07/22 03/07/22 History Patient History Medical History Anemia chronic, baseline hgb 8-10 range per chart review CAD (coronary artery disease) IPMI s/p RCA stents x2 (2011) Chronic diastolic CHF (congestive heart failure) COPD (chronic obstructive pulmonary disease) Diabetes mellitus, type 2 Diet controlled ESRD (end stage renal disease) Dialysis M/W/F (unknown location) Gout History of nephrolithiasis History of ventricular tachycardia RFA s/p RVOT VTACH (no nown recurrence since 2014 ablation per cardiology records Hyperlipidemia Hyperparathyroidism LBBB (left bundle branch block) chronic dating back to at least 2017 stress test, echo done 08/2019 Lone atrial fibrillation Lone event (2013) d/t electrolyte abnormalities with no known recurrence therefore anticoagulation therapy "not required" per heart failure clinic records Myocardial Infarction 2011 Obesity Osteoarthritis Pulmonary hypertension Moderate to severe pulmonary hypertension. RVSP 59 mmHg. Sleep apnea CPAP + O2 2L HS Umbilical hernia Venous stasis dermatitis of both lower extremities Weakness gait abnormality Surgical History H/O cardiac catheterization 2006, 2011 (stents x2) History of appendectomy History of cataract surgery R/L History of cystoscopy cysto/stent exchange: 02/20/19: MAC sedation at [facility] cysto/stent exchange: 08/03/19: MAC sedation at [facility] cysto/stent removal: 07/30/20: MAC at [facility] History of tonsillectomy Hx of prior ablation treatment RFA s/p RVOT VTACH (no recurrence since 2015 ablation per cardio records) Family History Unknown Hypertension Father , age 53 Lung cancer Mother , age 59 Cancer Other No family history of adverse response to anesthesia Denies family history of Kidney disease Social History Smoking Status: Never smoker Second Hand Exposure: No; Hx Alcohol Use: No Hx Substance Use: No Preferred Language: Croatian Communication Ability: Effective Visual Impairment: No Limitations Hearing Ability: Normal Facilities Maintenance Technician Required: No Beliefs That Will Affect Care: None marital status: / Current Living Situation: [facility] Current Living Situation Comment: Lives with special needs daughter How many Children do You have: 3 other: 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 HEENT: Unremarkable Neck: No jugular venous distention, carotid pulses are normal and equal bilaterally without bruits. Pulmonary: Clear to auscultation bilaterally. Cardiac: Regular rhythm with no murmur, gallop or rub. Abdomen: Soft, tender with normal bowel sounds. Extremities: No edema. Neurologic: No focal findings. Gait cannot be tested. Skin: No rash, ecchymoses or petechiae. Results & Data ([facility]) Vital Signs (Past 12 Hours) Vital Signs Temp Pulse Resp BP Pulse Ox O2 Del Method O2 Flow Rate 03/08/22 08:00 Nasal Cannula 2 03/08/22 08:05 36.7 C 87 19 117/53 L 94 Nasal Cannula 2.0 03/08/22 00:00 37.1 C 79 16 108/43 L 95 Nasal Cannula 2 Laboratory Results Cardiac Enzymes 03/07/22 03/07/22 03/07/22 Range/Units 10:37 11:42 23:52 Troponin I High Sens Cancelled 3564.8 H* D 84473.4 H* D 03/08/22 Range/Units 06:19 Troponin I High Sens 99299.7 H* CBC 03/08/22 Range/Units 06:19 WBC 11.91 H (4.8-10.8) K/ul RBC 3.18 L (3.93-5.22) M/uL Hgb 10.7 L (12.0-16.0) g/dl Hct 32.7 L (34.1-44.9) % Plt Count 161 (130-400) K/uL Neut # (Auto) 9.29 H (1.4-6.5) K/uL Lymph # (Auto) 1.77 (1.2-3.4) K/uL [place] # (Auto) 0.68 (0.24-0.82) K/uL Eos # (Auto) 0.07 (0-0.50) K/uL Baso # (Auto) 0.05 (0-0.2) K/uL Comprehensive Metabolic Panel 03/08/22 Range/Units 06:19 Sodium 137 (136-145) mmol/L Potassium 4.6 D (3.5-5.1) mmol/L Chloride 97 L (98-107) mmol/L Carbon Dioxide 30 (21-32) mmol/L BUN 72 H (6-23) mg/dl Creatinine 5.72 H* D (0.6-1.2) mg/dl Glucose 107 H (70-99(Fasting)) mg/dl Calcium 8.2 L (8.5-10.1) mg/dl Intake and Output 03/07/22 03/08/22 03/08/22 22:59 06:59 14:59 Intake Total 100 / 1500 1100 / 1100 Output Total 0 / 20 Balance 0 / 1480 100 / 1480 1100 / 1100 Intake: IV 100 / 1200 1100 / 1100 Acetaminophen 1,000 mg In 100 100 / 200 100 / 100 ml @ 400 mls/hr IV Q8 SAL Rx#: [id number] D5w and 1/2Nss 1,000 ml @ 50 1000 / 1000 mls/hr IV .Q20H SAL Rx#: [id number] Output: # Bowel Movements 0 / 0 Other: Other Intake Source sips Diagnostic Findings Telemetry: Sinus rhythm in the 70s with IVCD, PVCs, no VT Echocardiogram personally reviewed and results noted in the HPI. Electrocardiogram also reviewed and noted in the HPI. PG Care Time/CCT Total # of Minutes Spent Total Time Spent with Patient: Total time spent is greater than 50% in coordination of care (as documented) at patient's floor/unit and/or counseling patient: Coding Level of Care Code 02265 Initial Inpt Care Lvl 3 Diagnoses Elevated troponin R77.8 Cardiomyopathy I42.0 Cardiomyopathy type: dilated LBBB (left bundle branch block) I44.7 CAD (coronary artery disease), [place] coronary artery I25.10 Associated angina: without angina [place] vs. transplanted heart: [place] heart History of ventricular tachycardia Z86.79 (1) CAD (coronary artery disease), [place] coronary artery Associated angina: without angina [place] vs. transplanted heart: [place] heart Qualified Code(s): I25.10 - Atherosclerotic heart disease of [place] coronary artery without angina pectoris (2) Cardiomyopathy Cardiomyopathy type: dilated Qualified Code(s): I42.0 - Dilated cardiomyopathy
--- NOTE | 2022-03-08 11:52 | Nephrology Progress Note ---
Date of Service March 08, 2022 Assessment & Plan (1) ESRD (end stage renal disease): Plan: BP and volume status are acceptable. Electrolytes normal. There is no emergent indication for HD at this time. Next anticipated HD is tomorrow per MWF schedule. Preliminary orders have been entered into the EHR. Please maintain a daily fluid restriction of 1.2 L and maintain renal dietary restrictions as we advance her diet. When tolerating adequate PO, IV D5 may be stopped. Outpatient Rx is MWF x 4 hours on a 180 optiflux with Qb 400 via LUE AVF, Qd 800. Typically requires 2 K bath. EDW 98.5 kg. Recently leaving HD at 98 kg. Medications are appropriately dosed for kidney dysfunction. (2) Anemia: Plan: Hemoglobin has been consistently >11 and she has not required ELVIA therapy with HD. (3) Small bowel obstruction: Plan: Secondary to incarcerated ventral hernia. Clear liquis diet ordered. Pain controlled. (4) Incarcerated ventral hernia: Plan: POD#1 s/p ex lap and ventral hernia repair. (5) Hypertension: Plan: BP acceptable. Continue antihypertensives as Rx. Torsemide held for now. (6) Pulmonary HTN: Plan: Volume status acceptable. No signs of decompensated CHF. Document strict I/O's and daily weights. Admission and Anticipated Discharge Date Admission Date: March 07, 2022 Subjective No acute events overnight. Judi feels reasonably well today. No chest pain or palpitations. She denies pain. No nausea or vomiting. Passing gas. Breathing comfortably. Review of Systems Review of Systems: All systems reviewed & are unremarkable except as noted in HPI & below Physical Exam Constitutional: well developed and + frail appearing; no acute distress and not ill appearing Eyes: + anicteric sclerae; no corneal abnormality ENMT: Mouth: + dry oral mucous membranes; no oral mucosal abnormality Neck: normal visual inspection and trachea midline Respiratory: normal respiratory effort Auscultation: + rales (few basilar) Cardiovascular: Rate/Rhythm: regular rate Heart Sounds: normal S1, normal S2 and + murmur Extremities: + pedal edema and + AV fistula Gastrointestinal (Abdomen): Inspection/Auscultation: + abdomen distended and + hypoactive bowel sounds Musculoskeletal: Extremities: no cyanosis and no clubbing Skin: + turgor decreased; no lesions Neurologic: Motor/Sensory: no tremor and no asterixis Psychiatric: Orientation: alert and oriented x 3 Results & Data ([facility]) Vital Signs (Past 12 Hours) Vital Signs Temp Pulse Resp BP Pulse Ox O2 Del Method O2 Flow Rate 03/08/22 08:00 Nasal Cannula 2 03/08/22 08:05 36.7 C 87 19 117/53 L 94 Nasal Cannula 2.0 03/08/22 00:00 37.1 C 79 16 108/43 L 95 Nasal Cannula 2 Laboratory Results Laboratory Results - last 24 hr 03/07/22 03/07/22 03/07/22 11:42 16:26 23:52 WBC RBC Hgb Hct MCV MCH MCHC RDW Std Deviation RDW Coeff of Nicolasa Plt Count MPV Immature Gran % (Auto) Neut % (Auto) Lymph % (Auto) [place] % (Auto) Eos % (Auto) Baso % (Auto) Neut # (Auto) Lymph # (Auto) [place] # (Auto) Eos # (Auto) Baso # (Auto) Immature Gran # (Auto) Sodium Potassium Chloride Carbon Dioxide Anion Gap BUN Creatinine Est Cr Clr Drug Dosing Est GFR ( Amer) Est GFR (Non-Af Amer) BUN/Creatinine Ratio Glucose POC Glucose 144 H Calcium Iron TIBC Unsaturated IBC Transferrin % Sat Ferritin Troponin I High Sens 3564.8 H* D 86808.4 H* D Vitamin B12 Folate TSH 03/08/22 03/08/22 03/08/22 06:19 06:19 06:19 WBC 11.91 H RBC 3.18 L Hgb 10.7 L Hct 32.7 L MCV 102.8 H MCH 33.6 MCHC 32.7 RDW Std Deviation 49.2 H RDW Coeff of Nicolasa 13.1 Plt Count 161 MPV 11.1 Immature Gran % (Auto) 0.4 Neut % (Auto) 78.0 Lymph % (Auto) 14.9 [place] % (Auto) 5.7 Eos % (Auto) 0.6 Baso % (Auto) 0.4 Neut # (Auto) 9.29 H Lymph # (Auto) 1.77 [place] # (Auto) 0.68 Eos # (Auto) 0.07 Baso # (Auto) 0.05 Immature Gran # (Auto) 0.05 H Sodium 137 Potassium 4.6 D Chloride 97 L Carbon Dioxide 30 Anion Gap 10 BUN 72 H Creatinine 5.72 H* D Est Cr Clr Drug Dosing 8.1 Est GFR ( Amer) 7.1 Est GFR (Non-Af Amer) 6.1 BUN/Creatinine Ratio 12.6 Glucose 107 H POC Glucose Calcium 8.2 L Iron 86 TIBC 185 L Unsaturated IBC 99 L Transferrin % Sat 46 Ferritin 1264.8 H Troponin I High Sens 14307.7 H* Vitamin B12 Folate TSH 03/08/22 03/08/22 06:19 06:19 WBC RBC Hgb Hct MCV MCH MCHC RDW Std Deviation RDW Coeff of Nicolasa Plt Count MPV Immature Gran % (Auto) Neut % (Auto) Lymph % (Auto) [place] % (Auto) Eos % (Auto) Baso % (Auto) Neut # (Auto) Lymph # (Auto) [place] # (Auto) Eos # (Auto) Baso # (Auto) Immature Gran # (Auto) Sodium Potassium Chloride Carbon Dioxide Anion Gap BUN Creatinine Est Cr Clr Drug Dosing Est GFR ( Amer) Est GFR (Non-Af Amer) BUN/Creatinine Ratio Glucose POC Glucose Calcium Iron TIBC Unsaturated IBC Transferrin % Sat Ferritin Troponin I High Sens Vitamin B12 585 Folate > 22.30 TSH 0.577 PG Care Time/CCT Total # of Minutes Spent Total Time Spent with Patient: Total time spent is greater than 50% in coordination of care (as documented) at patient's floor/unit and/or counseling patient: Coding Level of Care Code 81664 Subseq Hosp Care Lvl 3 Diagnoses ESRD (end stage renal disease) N18.6 Anemia N18.6; D63.1; Z99.2 Anemia type: due to chronic kidney disease Chronic kidney disease stage: on chronic dialysis Small bowel obstruction K56.609 Incarcerated ventral hernia K43.6 Hypertension I10 Hypertension type: unspecified Pulmonary HTN I27.20 (1) Anemia Anemia type: due to chronic kidney disease Chronic kidney disease stage: on chronic dialysis Qualified Code(s): N18.6 - End stage renal disease; D63.1 - Anemia in chronic kidney disease; Z99.2 - Dependence on renal dialysis (2) Hypertension Hypertension type: unspecified Qualified Code(s): I10 - Essential (primary) hypertension
--- NOTE | 2022-03-08 16:58 | Hospitalist Progress Note ---
Date of Service March 08, 2022 Assessment & Plan (1) Incarcerated ventral hernia: Plan: Incarcerated ventral hernia with SBO -- POD #1 s/p Exploratory Laparotomy, Partial Omentectomy, and ventral hernia repair - Waqas Love, DO Defer diet advancement, pain meds, etc to gen surg service Received gentle IV fluids overnight - would advise stopping them given her ESRD status Overall stable from surgical standpoint (2) Non-ST elevation [place] (NSTEMI): Plan: Peak HS troponin 02222. Rapid rise to the peak, and troponin now slowly falling. Echo with ischemic cardiomyopathy. Last heart cath was 2012 s/p RCA stents; LAD and LCx with coronary disease at that time as well. I consulted [place] Ahumada [place] [facility] [place] saw Ms Watson in consult. Conservative measures to be employed moving forward. Defer on heparin infusion. Defer on cardiac catheterization. Cont asa 81mg daily. Cont coreg 12.5mg HS and 12.5mg qam on non-HD days. Resume statin. Cont imdur 60mg daily. Fortunately she continues to be asymptomatic from cardiopulmonary standpoint. (3) Ischemic cardiomyopathy: Plan: EF 35-40% on today's echo. The apex is akinetic, and the basal septum is severely hypokinetic. These findings are consistent with ischemic cardiomyopathy. The echo findings support that she likely had an NSTEMI event perioperatively. I spoke with Dr Ahumada - could consider adding RONY or ARB to her BB. HD will provide volume control in setting of ESRD. (4) Chronic respiratory failure with hypoxia: Plan: NC O2 2 liters, with CPAP at HS for GURPREET. (5) CAD (coronary artery disease), [place] coronary artery: Plan: see #2, #3 above appreciate cardiology consultation today (6) Anemia: Plan: Macrocytic B12, folate, TSH wnl Could have other micronutrient deficiency contributing (copper, etc) Fe studies most c/w anemia of chronic disease likely from #7 below (7) ESRD (end stage renal disease): Plan: appreciate nephrology consultation for HD needs HD schedule - M/W/F typically dialyzes at [facility] left arm AV fistula in place (8) Hypertension: Plan: Continue home carvedilol, isosorbide Holding home torsemide Blood pressures are controlled (9) Hyperlipidemia: Plan: resume statin (10) LBBB (left bundle branch block): Plan: Chronic (11) Lone atrial fibrillation: Plan: solitary episode years ago cont coreg not on chronic anticoagulation (12) Sleep apnea: Plan: Continue CPAP at bedtime-AutoPap ranging from 5-10 mmHg (13) Open toe wound: Plan: Right second toe - wound care consult placed Plan DVT proph - add heparin 5000 BID in am pt's son, Dr Griffin Watson, updated by phone Admission and Anticipated Discharge Date Admission Date: March 07, 2022 Subjective patient resting comfortably in bed she denies any dyspnea or chest pain has expected post-op surgical pain in her abdomen but no nausea or vomiting passed flatus 1x earlier today we discussed her elevated troponin and what it means tele overnight - NSR Review of Systems Review of Systems: gen - no fever cv - no chest pain, no orthopnea pulm - no cough or dyspnea GI - no nausea or emesis Physical Exam Physical Exam: gen - resting comfortably in bed, pleasant, NAD mouth - MMM neck - no JVD heart - RRR, s1 s2, no murmur lungs - CTA b/l abd - mildly distended; BS+ but decreased; dressings intact central abdomen; mild tenderness central abdomen ext - trace edema b/l, pulses both legs 2+ b/l vascular - left arm AV fistula in place with + thrill/bruit Results & Data Results & Data ([facility]) Vital Signs (Past 12 Hours) Vital Signs Temp Pulse Resp BP Pulse Ox O2 Del Method O2 Flow Rate 03/08/22 15:12 37.0 C 96 H 20 122/56 L 93 Nasal Cannula 2.0 03/08/22 12:09 36.8 C 85 19 112/51 L 93 Nasal Cannula 2.0 03/08/22 08:00 Nasal Cannula 2 03/08/22 08:05 36.7 C 87 19 117/53 L 94 Nasal Cannula 2.0 Laboratory Results Laboratory Results - last 24 hr 03/07/22 03/08/22 03/08/22 23:52 06:19 06:19 WBC 11.91 H RBC 3.18 L Hgb 10.7 L Hct 32.7 L MCV 102.8 H MCH 33.6 MCHC 32.7 RDW Std Deviation 49.2 H RDW Coeff of Nicolasa 13.1 Plt Count 161 MPV 11.1 Immature Gran % (Auto) 0.4 Neut % (Auto) 78.0 Lymph % (Auto) 14.9 [place] % (Auto) 5.7 Eos % (Auto) 0.6 Baso % (Auto) 0.4 Neut # (Auto) 9.29 H Lymph # (Auto) 1.77 [place] # (Auto) 0.68 Eos # (Auto) 0.07 Baso # (Auto) 0.05 Immature Gran # (Auto) 0.05 H Sodium 137 Potassium 4.6 D Chloride 97 L Carbon Dioxide 30 Anion Gap 10 BUN 72 H Creatinine 5.72 H* D Est Cr Clr Drug Dosing 8.1 Est GFR ( Amer) 7.1 Est GFR (Non-Af Amer) 6.1 BUN/Creatinine Ratio 12.6 Glucose 107 H Calcium 8.2 L Iron TIBC Unsaturated IBC Transferrin % Sat Ferritin 1264.8 H Troponin I High Sens 29574.4 H* D 99449.7 H* Vitamin B12 Folate TSH 03/08/22 03/08/22 03/08/22 06:19 06:19 06:19 WBC RBC Hgb Hct MCV MCH MCHC RDW Std Deviation RDW Coeff of Nicolasa Plt Count MPV Immature Gran % (Auto) Neut % (Auto) Lymph % (Auto) [place] % (Auto) Eos % (Auto) Baso % (Auto) Neut # (Auto) Lymph # (Auto) [place] # (Auto) Eos # (Auto) Baso # (Auto) Immature Gran # (Auto) Sodium Potassium Chloride Carbon Dioxide Anion Gap BUN Creatinine Est Cr Clr Drug Dosing Est GFR ( Amer) Est GFR (Non-Af Amer) BUN/Creatinine Ratio Glucose Calcium Iron 86 TIBC 185 L Unsaturated IBC 99 L Transferrin % Sat 46 Ferritin Troponin I High Sens Vitamin B12 585 Folate > 22.30 TSH 0.577 PG Care Time/CCT Total # of Minutes Spent Total Time Spent with Patient: Total time spent is greater than 50% in coordination of care (as documented) at patient's floor/unit and/or counseling patient: Coding Level of Care Code 59299 Subseq Hosp Care Lvl 2 Diagnoses Incarcerated ventral hernia K43.6 Non-ST elevation [place] (NSTEMI) I21.4 Ischemic cardiomyopathy I25.5 Chronic respiratory failure with hypoxia J96.11 CAD (coronary artery disease), [place] coronary artery I25.10 Associated angina: without angina [place] vs. transplanted heart: [place] heart Anemia N18.6; D63.1; Z99.2 Anemia type: due to chronic kidney disease Chronic kidney disease stage: on chronic dialysis ESRD (end stage renal disease) N18.6 Hypertension I10 Hypertension type: unspecified Hyperlipidemia E78.5 Hyperlipidemia type: unspecified LBBB (left bundle branch block) I44.7 Lone atrial fibrillation I48.91 Sleep apnea G47.33 Sleep apnea type: obstructive Open toe wound S91.109A (1) Sleep apnea Sleep apnea type: obstructive Qualified Code(s): G47.33 - Obstructive sleep apnea (adult) (pediatric) (2) Anemia Anemia type: due to chronic kidney disease Chronic kidney disease stage: on chronic dialysis Qualified Code(s): N18.6 - End stage renal disease; D63.1 - Anemia in chronic kidney disease; Z99.2 - Dependence on renal dialysis (3) Hyperlipidemia Hyperlipidemia type: unspecified Qualified Code(s): E78.5 - Hyperlipidemia, unspecified (4) CAD (coronary artery disease), [place] coronary artery Associated angina: without angina [place] vs. transplanted heart: [place] heart Qualified Code(s): I25.10 - Atherosclerotic heart disease of [place] coronary artery without angina pectoris (5) Hypertension Hypertension type: unspecified Qualified Code(s): I10 - Essential (primary) hypertension
[2022-03-08] MEDS: ISOSORBIDE MONO EXTENDED REL 60 MG TABCR PO SCH (20:55)
[2022-03-08] MEDS: ATORVASTATIN 40 MG TAB PO SCH (20:56)
--- NOTE | 2022-03-08 21:50 | Electrocardiogram Report ---
Test Reason : Blood Pressure : / mmHG Vent. Rate : 096 BPM Atrial Rate : 096 BPM P-R Int : 186 ms QRS Dur : 162 ms QT Int : 426 ms P-R-T Axes : 043 -20 068 degrees QTc Int : 538 ms Normal sinus rhythm Left bundle branch block Abnormal ECG When compared with ECG of 07-MAY-2020 15:03, Vent. rate has increased BY 41 BPM Confirmed by Rajat Ahumada ([id number]) on 03/08/2022 9:50:22 PM Referred By: Daniela Jones Confirmed By:Rajat Ahumada
[2022-03-09] MEDS: ONDANSETRON INJ 2 MG/ML 2 ML VIAL IV PRN ×4 (04:43→22:04)
[2022-03-09] MEDS: ACETAMINOPHEN 1,000 MG/100 ML VIAL IV SCH ×3 (06:32→22:16)
[2022-03-09 06:56] LABS: Basophils # (auto) 0.05 K/uL (0-0.2); Basophils % (auto) 0.4 %; Eosinophils # (auto) 0.17 K/uL (0-0.50); Eosinophils % (auto) 1.5 %; Hematocrit (blood only) 33.1 % (34.1-44.9); Hemoglobin 10.8 g/dl (12.0-16.0); Immature Granulocytes # (auto) 0.07 K/uL (0.00-0.02); Immature Granulocytes % (auto) 0.6 %; Lymphocytes # (auto) 1.94 K/uL (1.2-3.4); Lymphocytes % (auto) 16.8 %; Mean Corpuscular Hgb Conc 32.6 g/dL (32.0-36.0); Mean Corpuscular Volume 104.1 fL (80.0-100.0); Mean Platelet Volume 10.7 fL (9.4-12.3); Monocytes # (auto) 0.92 K/uL (0.24-0.82); Monocytes % (auto) 7.9 %; Neutrophils # (auto) 8.43 K/uL (1.4-6.5); Neutrophils % (auto) 72.8 %; Platelet Count 144 K/uL (130-400); RDW Coefficient of Variation 13.1 % (11.5-14.5); RDW Standard Deviation 50.5 fL (36.4-46.3); Red Blood Count 3.18 M/uL (3.93-5.22); White Blood Count 11.58 K/ul (4.8-10.8)
[2022-03-09 07:35] LABS: Calcium 7.8 mg/dl (8.5-10.1); Creatinine Clr Calc Pharmacy 6.8 ml/min; Est GFR (African American) 5.7 ml/min; Est GFR (Non-African American) 4.9 ml/min; Potassium 4.5 mmol/L (3.5-5.1)
[2022-03-09] MEDS ORDERED: PROMETHAZINE HCL 12.5 MG in SODIUM CHLORIDE 0.9% 50 ML IV STA (07:50)
--- NOTE | 2022-03-09 10:13 | Nephrology Progress Note ---
Date of Service March 09, 2022 Assessment & Plan (1) ESRD (end stage renal disease): Plan: Orders for HD entered into the EHR and reviewed with HD nurse. UF goal 2-2.5 L, as tolerated. Qb at goal. No heparin with HD. Please maintain a daily fluid restriction of 1.2 L . Outpatient Rx is MWF x 4 hours on a 180 optiflux with Qb 400 via LUE AVF, Qd 800. Typically requires 2 K bath. EDW 98.5 kg. Recently leaving HD at 98 kg. Medications are appropriately dosed for kidney dysfunction. (2) Anemia: Plan: Hemoglobin stable at 10.8, no ELVIA therapy required. Update iron profile with next blood work. (3) Small bowel obstruction: Plan: Secondary to incarcerated ventral hernia. POD #2 s/p repair. Demonstrating post op ileus. Pain controlled. (4) Incarcerated ventral hernia: Plan: POD#2 s/p ex lap and ventral hernia repair. (5) Hypertension: Plan: BP acceptable. Continue antihypertensives as Rx. Torsemide held for now. (6) Pulmonary HTN: Plan: UF with HD, as tolerated. Document strict I/O's and daily weights. Admission and Anticipated Discharge Date Admission Date: March 07, 2022 Gilma Lau was seen and evaluated during HD today. Nausea and vomiting reported. Feeling slightly better at the time of my assessment. No BM. Tolerated clears yesterday. Developed nausea overnight. Minimal flatus. Denies significant pain. Breathing relatively comfortably. Review of Systems Review of Systems: All systems reviewed & are unremarkable except as noted in HPI & below Physical Exam Constitutional: well developed and + frail appearing; no acute distress and not ill appearing Eyes: + anicteric sclerae; no corneal abnormality ENMT: Mouth: + dry oral mucous membranes; no oral mucosal abnormality Neck: normal visual inspection and trachea midline Respiratory: normal respiratory effort and + tachypneic Auscultation: + rales Cardiovascular: Rate/Rhythm: regular rate Heart Sounds: normal S1, normal S2 and + murmur Extremities: + pedal edema and + AV fistula Gastrointestinal (Abdomen): Inspection/Auscultation: + abdomen distended and + hypoactive bowel sounds Musculoskeletal: Extremities: no cyanosis and no clubbing Skin: + turgor decreased; no lesions Neurologic: Motor/Sensory: no tremor and no asterixis Psychiatric: Orientation: alert and oriented x 3 Results & Data ([facility]) Vital Signs (Past 12 Hours) Vital Signs Temp Pulse Resp BP Pulse Ox O2 Del Method O2 Flow Rate 03/09/22 07:51 36.8 C 91 H 18 130/72 95 Nasal Cannula 2 03/08/22 23:15 37.2 C 88 16 118/74 94 Nasal Cannula 2 Laboratory Results Laboratory Results - last 24 hr 03/09/22 03/09/22 06:34 06:34 WBC 11.58 H RBC 3.18 L Hgb 10.8 L Hct 33.1 L MCV 104.1 H MCH 34.0 MCHC 32.6 RDW Std Deviation 50.5 H RDW Coeff of Nicolasa 13.1 Plt Count 144 MPV 10.7 Immature Gran % (Auto) 0.6 Neut % (Auto) 72.8 Lymph % (Auto) 16.8 [place] % (Auto) 7.9 Eos % (Auto) 1.5 Baso % (Auto) 0.4 Neut # (Auto) 8.43 H Lymph # (Auto) 1.94 [place] # (Auto) 0.92 H Eos # (Auto) 0.17 Baso # (Auto) 0.05 Immature Gran # (Auto) 0.07 H Sodium 133 L Potassium 4.5 Chloride 95 L Carbon Dioxide 27 Anion Gap 11 BUN 82 H Creatinine 6.86 H* D Est Cr Clr Drug Dosing 6.8 Est GFR ( Amer) 5.7 Est GFR (Non-Af Amer) 4.9 BUN/Creatinine Ratio 12.0 Glucose 115 H Calcium 7.8 L PG Care Time/CCT Total # of Minutes Spent Total Time Spent with Patient: Total time spent is greater than 50% in coordination of care (as documented) at patient's floor/unit and/or counseling patient: Coding Level of Care Code 29156 Subseq Hosp Care Lvl 3 Diagnoses ESRD (end stage renal disease) N18.6 Anemia N18.6; D63.1; Z99.2 Anemia type: due to chronic kidney disease Chronic kidney disease stage: on chronic dialysis Small bowel obstruction K56.609 Incarcerated ventral hernia K43.6 Hypertension I10 Hypertension type: unspecified Pulmonary HTN I27.20 (1) Anemia Anemia type: due to chronic kidney disease Chronic kidney disease stage: on chronic dialysis Qualified Code(s): N18.6 - End stage renal disease; D63.1 - Anemia in chronic kidney disease; Z99.2 - Dependence on renal dialysis (2) Hypertension Hypertension type: unspecified Qualified Code(s): I10 - Essential (primary) hypertension
--- NOTE | 2022-03-09 11:54 | Surgery Progress Note ---
Date of Service March 09, 2022 Assessment & Plan (1) Incarcerated ventral hernia: Plan: POD#2 ex lap, ventral hernia repair WBC 11, Hbg 12.2. Vitals are stable Undergoing dialysis today Passing some flatus. No BM yet. Reports some nausea throughout this AM. Will jd munoz on clears for now Will change surgical dressing tomorrow Admission and Anticipated Discharge Date Admission Date: March 07, 2022 Supervising Physician Co-Signing Physician Notes I personally saw and evaluated the patient with Rocío Davidson PA-C and agree with the assessment and plan. 87-year-old female postoperative day 2 exploratory laparotomy partial omentectomy and repair of incarcerated ventral hernia She is tolerating clears but having some nausea without emesis Keep on clears today Appreciate medicine, nephrology and cardiology input We will start pharmacologic DVT prophylaxis with heparin 5000 units every 12 hours Continue incentive spirometry Subjective Patient doing okay. Reports some mild nausea, that is better than this morning. Passing small amount of flatus. No BM yet. Mild pain. Physical Exam Physical Exam: awake/alert, resting in bed in dialysis unit Gastrointestinal (Abdomen): Inspection/Auscultation: + abdominal surgical incision (surgical dressings c/d/i); abdomen not distended Percu ssion/Palpation: + abdomen tender (mild steven incisional discomfort to palpation) and abdomen soft Results & Data ([facility]) Vital Signs (Past 12 Hours) Vital Signs Temp Pulse Pulse Pulse Resp BP BP 03/09/22 11:30 73 122/95 03/09/22 11:00 87 127/58 L 03/09/22 10:00 89 102/66 03/09/22 09:30 87 105/54 L 03/09/22 10:30 87 126/57 L 03/09/22 09:00 91 H 113/41 L 03/09/22 08:52 87 113/51 L 03/09/22 10:16 83 03/09/22 08:45 36.8 C 94 H 03/09/22 07:51 36.8 C 91 H 18 130/72 Pulse Ox O2 Del Method O2 Flow Rate 03/09/22 11:30 03/09/22 11:00 03/09/22 10:00 03/09/22 09:30 03/09/22 10:30 03/09/22 09:00 03/09/22 08:52 03/09/22 10:16 03/09/22 08:45 03/09/22 07:51 95 Nasal Cannula 2 PG Care Time/CCT Total # of Minutes Spent Total Time Spent with Patient: Total time spent is greater than 50% in coordination of care (as documented) at patient's floor/unit and/or counseling patient: Coding Level of Care Code None Diagnoses Incarcerated ventral hernia K43.6
[2022-03-09] MEDS: ASPIRIN 81 MG ECTAB PO SCH (13:49)
[2022-03-09] MEDS ORDERED: ARTIFICIAL TEARS OP PRN (19:54)
[2022-03-09] MEDS: HEPARIN SOD 5,000 UNIT/0.5 ML VIAL SQ SCH (22:20)
[2022-03-09] MEDS: ATORVASTATIN 40 MG TAB PO SCH (22:20)
[2022-03-09] MEDS: carvediloL 12.5 MG TAB PO SCH (22:21)
[2022-03-09] MEDS: ISOSORBIDE MONO EXTENDED REL 60 MG TABCR PO SCH (22:21)
[2022-03-10] MEDS: MELATONIN 3 MG TAB PO SCH ×2 (00:17→22:48)
--- NOTE | 2022-03-10 02:28 | Hospitalist Progress Note ---
Date of Service March 09, 2022 Assessment & Plan (1) Incarcerated ventral hernia: Plan: Incarcerated ventral hernia with SBO -- POD #2 s/p Exploratory Laparotomy, Partial Omentectomy, and ventral hernia repair - Waqas Love, DO Clear liquid diet only Nausea, etc is due to bowel function not returning to normal (an expected occurrence in the setting of her surgery) defer management to general surgery (2) Non-ST elevation [place] (NSTEMI): Plan: Peak HS troponin 40358. Echo with ischemic cardiomyopathy. Last heart cath was 2012 s/p RCA stents; LAD and LCx with coronary disease at that time as well. [facility] cardiology was consulted -- conservative measures to be employed at this time. heparin infusion deferred. cardiac catheterization deferred. Cont asa 81mg daily. Cont coreg 12.5mg HS and 12.5mg qam on non-HD days. Cont statin. Cont imdur 60mg daily. Fortunately she continues to be asymptomatic from cardiopulmonary standpoint. Tele stable as well. (3) Ischemic cardiomyopathy: Plan: EF 35-40% on today's echo. The apex is akinetic, and the basal septum is severely hypokinetic. These findings are consistent with ischemic cardiomyopathy. The echo findings support that she likely had an NSTEMI event perioperatively. consider adding RONY or ARB to her BB. HD will provide volume control in setting of ESRD. (4) Chronic respiratory failure with hypoxia: Plan: NC O2 2 liters, with CPAP at HS for GURPREET. stable. (5) CAD (coronary artery disease), [place] coronary artery: Plan: see #2, #3 above appreciate cardiology consultation (6) Anemia: Plan: Macrocytic B12, folate, TSH wnl Could have other micronutrient deficiency contributing (copper, etc) Fe studies most c/w anemia of chronic disease likely from #7 below H/H stable/acceptable today (7) ESRD (end stage renal disease): Plan: appreciate nephrology consultation for HD needs HD schedule - M/W/F - s/p HD today typically dialyzes at [place] [facility] left arm AV fistula in place (8) Hypertension: Plan: Continue home carvedilol, isosorbide Holding home torsemide Blood pressures are controlled Consider RONY or ARB due to ischemic cardiomyopathy/depressed EF (9) Hyperlipidemia: Plan: cont statin (10) LBBB (left bundle branch block): Plan: Chronic (11) Lone atrial fibrillation: Plan: solitary episode years ago cont coreg not on chronic anticoagulation for such (12) Sleep apnea: Plan: Continue CPAP at bedtime-AutoPap ranging from 5-10 mmHg (13) Open toe wound: Plan: Right second toe - wound care consult placed Plan DVT proph - heparin 5000 BID pt's son, Dr Griffin Watson, updated by phone once again this evening Admission and Anticipated Discharge Date Admission Date: March 07, 2022 Subjective I saw Mrs Watson following her HD session today she was very tired has nausea passing minimal flatus no stool yet despite nausea fortunately has had no vomiting denies dyspnea or chest pain at rest Review of Systems Review of Systems: cv - no cp, no orthopnea pulm - no cough GI - mild incisional pain, nausea Physical Exam Physical Exam: gen - resting comfortably in bed, NAD - but looks very tired eyes - scleral injection present b/l mouth - MMM neck - no JVD heart - RRR, s1 s2, no murmur lungs - CTA b/l abd - mildly distended; BS+ but decreased; dressings intact central abdomen; NT ext - trace edema b/l, pulses both legs 2+ b/l Results & Data Results & Data ([facility]) Vital Signs (Past 12 Hours) Vital Signs Temp Pulse Resp BP Pulse Ox O2 Del Method O2 Flow Rate 03/09/22 22:00 Nasal Cannula 2 03/09/22 19:53 37.2 C 96 H 18 124/66 95 Nasal Cannula 2 03/09/22 15:33 36.9 C 98 H 20 135/70 96 Nasal Cannula 2 Laboratory Results Laboratory Results - last 24 hr 03/08/22 03/09/22 03/09/22 06:14 06:34 06:34 WBC 11.58 H RBC 3.18 L Hgb 10.8 L Hct 33.1 L MCV 104.1 H MCH 34.0 MCHC 32.6 RDW Std Deviation 50.5 H RDW Coeff of Nicolasa 13.1 Plt Count 144 MPV 10.7 Immature Gran % (Auto) 0.6 Neut % (Auto) 72.8 Lymph % (Auto) 16.8 [place] % (Auto) 7.9 Eos % (Auto) 1.5 Baso % (Auto) 0.4 Neut # (Auto) 8.43 H Lymph # (Auto) 1.94 [place] # (Auto) 0.92 H Eos # (Auto) 0.17 Baso # (Auto) 0.05 Immature Gran # (Auto) 0.07 H Sodium 133 L Potassium 4.5 Chloride 95 L Carbon Dioxide 27 Anion Gap 11 BUN 82 H Creatinine 6.86 H* D Est Cr Clr Drug Dosing 6.8 Est GFR ( Amer) 5.7 Est GFR (Non-Af Amer) 4.9 BUN/Creatinine Ratio 12.0 Glucose 115 H Calcium 7.8 L Hep Bs Antigen Pending Hep Bs Ag Confirmation Pending Hep Bs Antibody, Quant Pending PG Care Time/CCT Total # of Minutes Spent Total Time Spent with Patient: Total time spent is greater than 50% in coordination of care (as documented) at patient's floor/unit and/or counseling patient: Coding Level of Care Code 09828 Subseq Hosp Care Lvl 1 Diagnoses Incarcerated ventral hernia K43.6 Non-ST elevation [place] (NSTEMI) I21.4 Ischemic cardiomyopathy I25.5 Chronic respiratory failure with hypoxia J96.11 CAD (coronary artery disease), [place] coronary artery I25.10 [place] vs. transplanted heart: [place] heart Associated angina: without angina Anemia N18.6; D63.1; Z99.2 Anemia type: due to chronic kidney disease Chronic kidney disease stage: on chronic dialysis ESRD (end stage renal disease) N18.6 Hypertension I10 Hypertension type: unspecified Hyperlipidemia E78.5 Hyperlipidemia type: unspecified LBBB (left bundle branch block) I44.7 Lone atrial fibrillation I48.91 Sleep apnea G47.33 Sleep apnea type: obstructive Open toe wound S91.109A (1) CAD (coronary artery disease), [place] coronary artery [place] vs. transplanted heart: [place] heart Associated angina: without angina Qualified Code(s): I25.10 - Atherosclerotic heart disease of [place] coronary artery without angina pectoris (2) Anemia Anemia type: due to chronic kidney disease Chronic kidney disease stage: on chronic dialysis Qualified Code(s): N18.6 - End stage renal disease; D63.1 - Anemia in chronic kidney disease; Z99.2 - Dependence on renal dialysis (3) Hypertension Hypertension type: unspecified Qualified Code(s): I10 - Essential (primary) hypertension (4) Hyperlipidemia Hyperlipidemia type: unspecified Qualified Code(s): E78.5 - Hyperlipidemia, unspecified (5) Sleep apnea Sleep apnea type: obstructive Qualified Code(s): G47.33 - Obstructive sleep apnea (adult) (pediatric)
[2022-03-10] MEDS: ACETAMINOPHEN 1,000 MG/100 ML VIAL IV SCH (06:52)
[2022-03-10 07:51] LABS: Basophils # (auto) 0.05 K/uL (0-0.2); Basophils % (auto) 0.5 %; Hematocrit (blood only) 34.2 % (34.1-44.9); Hemoglobin 11.1 g/dl (12.0-16.0); Immature Granulocytes # (auto) 0.07 K/uL (0.00-0.02); Immature Granulocytes % (auto) 0.7 %; Lymphocytes % (auto) 18.9 %; Mean Corpuscular Hemoglobin 33.5 pg (25.0-34.0); Mean Corpuscular Hgb Conc 32.5 g/dL (32.0-36.0); Mean Corpuscular Volume 103.3 fL (80.0-100.0); Mean Platelet Volume 10.9 fL (9.4-12.3); Monocytes # (auto) 0.86 K/uL (0.24-0.82); Monocytes % (auto) 8.6 %; Neutrophils # (auto) 6.95 K/uL (1.4-6.5); Neutrophils % (auto) 69.3 %; Platelet Count 151 K/uL (130-400); RDW Coefficient of Variation 13.1 % (11.5-14.5); RDW Standard Deviation 49.2 fL (36.4-46.3); Red Blood Count 3.31 M/uL (3.93-5.22); White Blood Count 10.03 K/ul (4.8-10.8)
[2022-03-10 08:10] LABS: BUN Creatinine Ratio 8.4 (10-20); Calcium 7.8 mg/dl (8.5-10.1); Creatinine Clr Calc Pharmacy 8.7 ml/min; Est GFR (African American) 7.7 ml/min; Est GFR (Non-African American) 6.6 ml/min; Potassium 4.5 mmol/L (3.5-5.1)
--- NOTE | 2022-03-10 08:50 | Surgery Progress Note ---
Date of Service March 10, 2022 Assessment & Plan (1) Incarcerated ventral hernia: Plan: POD#3 ex lap, ventral hernia repair Heparin every 12 for DVT prophylaxis Able to restart Plavix today her hemoglobin is been stable We will get a KUB to rule out a postoperative ileus Continue on clears for now Admission and Anticipated Discharge Date Admission Date: March 07, 2022 Subjective Patient seen and examined. Tolerating clear liquids but still has persistent nausea. Positive flatus, no BM. Afebrile. Physical Exam Physical Exam: awake/alert, resting in bed in dialysis unit Gastrointestinal (Abdomen): Inspection/Auscultation: + abdominal surgical incision (surgical dressings c/d/i); abdomen not distended Percussion/Palpation: + abdomen tender (mild steven incisional discomfort to palpation) and abdomen soft Results & Data ([facility]) Vital Signs (Past 12 Hours) Vital Signs Temp Pulse Pulse Resp BP Pulse Ox O2 Del Method 03/10/22 07:47 36.7 C 84 18 123/64 96 Nasal Cannula 03/10/22 02:49 36.8 C 84 18 126/52 L 98 Nasal Cannula 03/09/22 22:00 Nasal Cannula O2 Flow Rate 03/10/22 07:47 2 03/10/22 02:49 2 03/09/22 22:00 2 PG Care Time/CCT Total # of Minutes Spent Total Time Spent with Patient: Total time spent is greater than 50% in coordination of care (as documented) at patient's floor/unit and/or counseling patient: Coding Level of Care Code None Diagnoses Incarcerated ventral hernia K43.6
[2022-03-10] MEDS: HEPARIN SOD 5,000 UNIT/0.5 ML VIAL SQ SCH ×2 (09:18→22:48)
[2022-03-10] MEDS: carvediloL 12.5 MG TAB PO SCH ×2 (09:18→22:45)
[2022-03-10] MEDS: ASPIRIN 81 MG ECTAB PO SCH (09:18)
[2022-03-10] MEDS: CLOPIDOGREL BISULFATE 75 MG TAB PO SCH (10:45)
--- NOTE | 2022-03-10 10:47 | Nephrology Progress Note ---
Date of Service March 10, 2022 Assessment & Plan (1) ESRD (end stage renal disease): Plan: HD MWF. Adequate clearance and UF yesterday. Volume status acceptable. BP controlled. Please maintain a daily fluid restriction of 1.2 L . Outpatient Rx is MWF x 4 hours on a 180 optiflux with Qb 400 via LUE AVF, Qd 800. Typically requires 2 K bath. EDW 98.5 kg. Recently leaving HD at 98 kg. Medications are appropriately dosed for kidney dysfunction. (2) Anemia: Plan: Hgb stable. (3) Small bowel obstruction: Plan: Secondary to incarcerated ventral hernia. Tolerating clears. (4) Incarcerated ventral hernia: Plan: POD#3 s/p ex lap and ventral hernia repair. (5) Hypertension: Plan: BP acceptable. Continue antihypertensives as Rx. Torsemide held for now. (6) Pulmonary HTN: Plan: Document strict I/O's and daily weights. Admission and Anticipated Discharge Date Admission Date: March 07, 2022 Subjective No acute events overnight. Tolerated HD well yesterday. Treatment stopped sli ghtly early due to clotting in dialyzer. All blood returned. Nausea improving. No vomiting. No fevers or chills. Denies significant pain. Review of Systems Review of Systems: All systems reviewed & are unremarkable except as noted in HPI & below Physical Exam Constitutional: well developed and + frail appearing; no acute distress and not ill appearing Eyes: + anicteric sclerae; no corneal abnormality Neck: normal visual inspection and trachea midline Respiratory: normal respiratory effort and + tachypneic Auscultation: lungs clear to auscultation bilaterally and + rales Cardiovascular: Rate/Rhythm: regular rate Heart Sounds: normal S1, normal S2 and + murmur Extremities: + pedal edema and + AV fistula Gastrointestinal (Abdomen): Inspection/Auscultation: + abdomen distended Percussion/Palpation: abdomen soft Musculoskeletal: Extremities: no cyanosis and no clubbing Skin: + turgor decreased; no lesions Neurologic: Motor/Sensory: no tremor and no asterixis Psychiatric: Orientation: alert and oriented x 3 Results & Data ([facility]) Vital Signs (Past 12 Hours) Vital Signs Temp Pulse Pulse Resp BP Pulse Ox O2 Del Method 03/10/22 07:47 36.7 C 84 18 123/64 96 Nasal Cannula 03/10/22 02:49 36.8 C 84 18 126/52 L 98 Nasal Cannula O2 Flow Rate 03/10/22 07:47 2 03/10/22 02:49 2 Laboratory Results Laboratory Results - last 24 hr 03/08/22 03/10/22 03/10/22 06:14 07:25 07:25 WBC 10.03 RBC 3.31 L Hgb 11.1 L Hct 34.2 MCV 103.3 H MCH 33.5 MCHC 32.5 RDW Std Deviation 49.2 H RDW Coeff of Nicolasa 13.1 Plt Count 151 MPV 10.9 Immature Gran % (Auto) 0.7 Neut % (Auto) 69.3 Lymph % (Auto) 18.9 [place] % (Auto) 8.6 Eos % (Auto) 2.0 Baso % (Auto) 0.5 Neut # (Auto) 6.95 H Lymph # (Auto) 1.90 [place] # (Auto) 0.86 H Eos # (Auto) 0.20 Baso # (Auto) 0.05 Immature Gran # (Auto) 0.07 H Sodium 135 L Potassium 4.5 Chloride 97 L Carbon Dioxide 28 Anion Gap 10 BUN 45 H D Creatinine 5.36 H* D Est Cr Clr Drug Dosing 8.7 Est GFR ( Amer) 7.7 Est GFR (Non-Af Amer) 6.6 BUN/Creatinine Ratio 8.4 L Glucose 78 Calcium 7.8 L Hep Bs Antigen Pending Hep Bs Ag Confirmation Pending Hep Bs Antibody, Quant Pending PG Care Time/CCT Total # of Minutes Spent Total Time Spent with Patient: Total time spent is greater than 50% in coordination of care (as documented) at patient's floor/unit and/or counseling patient: Coding Level of Care Code 48607 Subseq Hosp Care Lvl 3 Diagnoses ESRD (end stage renal disease) N18.6 Anemia N18.6; D63.1; Z99.2 Anemia type: due to chronic kidney disease Chronic kidney disease stage: on chronic dialysis Small bowel obstruction K56.609 Incarcerated ventral hernia K43.6 Hypertension I10 Hypertension type: unspecified Pulmonary HTN I27.20 (1) Anemia Anemia type: due to chronic kidney disease Chronic kidney disease stage: on chronic dialysis Qualified Code(s): N18.6 - End stage renal disease; D63.1 - Anemia in chronic kidney disease; Z99.2 - Dependence on renal dialysis (2) Hypertension Hypertension type: unspecified Qualified Code(s): I10 - Essential (primary) hypertension
[2022-03-10] MEDS: ONDANSETRON INJ 2 MG/ML 2 ML VIAL IV PRN ×2 (12:41→22:34)
--- NOTE | 2022-03-10 13:17 | Hospitalist Progress Note ---
Date of Service March 10, 2022 Assessment & Plan (1) Incarcerated ventral hernia: Plan: Incarcerated ventral hernia with SBO -- POD #3 s/p Exploratory Laparotomy, Partial Omentectomy, and ventral hernia repair - Waqas Love, DO Clear liquid diet only Nausea, etc is due to bowel function not returning to normal (an expected occurrence in the setting of her surgery) x-rays confirm mild small bowel dilatation defer management to general surgery zofran prn if nausea worsens, she has vomiting, or abd exam worsens - NG tube ? other? defer all of this to surgery (2) Non-ST elevation [place] (NSTEMI): Plan: Peak HS troponin 60727. Echo with ischemic cardiomyopathy. Last heart cath was 2012 s/p RCA stents; LAD and LCx with coronary disease at that time as well. [facility] cardiology was consulted -- conservative measures to be employed at this time. heparin infusion deferred. cardiac catheterization deferred. Cont asa 81mg daily. Cont coreg 12.5mg HS and 12.5mg qam on non-HD days. Cont statin. Cont imdur 60mg daily. I repeated an EKG today along with troponin to ensure ongoing nausea is not anginal-equivalent symptom -- EKG (my reading) -- unchanged with NSR and LBBB; troponin continues to trend downward thus, nausea is from #1 and not ischemia (3) Ischemic cardiomyopathy: Plan: EF 35-40% on today's echo. The apex is akinetic, and the basal septum is severely hypokinetic. These findings are consistent with ischemic cardiomyopathy. The echo findings support that she likely had an NSTEMI event perioperatively. consider adding RONY or ARB to her BB. HD will provide volume control in setting of ESRD. (4) Chronic respiratory failure with hypoxia: Plan: NC O2 2 liters, with CPAP at HS for GURPREET. stable. (5) CAD (coronary artery disease), [place] coronary artery: Plan: see #2 appreciate cardiology consultation (6) Anemia: Plan: Macrocytic B12, folate, TSH wnl Could have other micronutrient deficiency contributing (copper, etc) Fe studies most c/w anemia of chronic disease likely from #7 below H/H stable/acceptable again today (7) ESRD (end stage renal disease): Plan: appreciate nephrology consultation for HD needs HD schedule - M/W/F - s/p HD today typically dialyzes at [place] [facility] left arm AV fistula in place (8) Hypertension: Plan: Continue home carvedilol, isosorbide Holding home torsemide Blood pressures are controlled Consider RONY or ARB due to ischemic cardiomyopathy/depressed EF (9) Hyperlipidemia: Plan: cont statin (10) LBBB (left bundle branch block): Plan: Chronic unchanged (11) Lone atrial fibrillation: Plan: solitary episode years ago cont coreg not on chronic anticoagulation for such tele stable (12) Sleep apnea: Plan: Continue CPAP at bedtime-AutoPap ranging from 5-10 mmHg (13) Open toe wound: Plan: Right second toe - wound care consult placed appreciate their assistance Plan DVT proph - heparin 5000 BID pt's son, Griffin Watson, updated several times this week Admission and Anticipated Discharge Date Admission Date: March 07, 2022 Subjective continues with nausea no vomiting taking just small amounts of clear liquids minimal flatus no stool ongoing mild incisional abd pain no cp or dyspnea Review of Systems Review of Systems: cv - no cp, no orthopnea pulm - no cough gen - fatigue Physical Exam Physical Exam: gen - resting comfortably in bed, NAD - but looks very tired and ill eyes - scleral injection present b/l - improved mouth - MMM neck - no JVD heart - RRR, s1 s2, no murmur lungs - CTA b/l abd - mildly distended; BS+ but remain decreased; dressings intact central abdomen; NT ext - trace edema b/l, pulses both legs 2+ b/l Results & Data Results & Data ([facility]) Vital Signs (Past 12 Hours) Vital Signs Temp Pulse Pulse Resp BP Pulse Ox O2 Del Method 03/10/22 12:17 36.8 C 82 17 142/63 H 94 Nasal Cannula 03/10/22 07:47 36.7 C 84 18 123/64 96 Nasal Cannula 03/10/22 02:49 36.8 C 84 18 126/52 L 98 Nasal Cannula O2 Flow Rate 03/10/22 12:17 2 03/10/22 07:47 2 03/10/22 02:49 2 Laboratory Results Laboratory Results - last 24 hr 03/08/22 03/10/22 03/10/22 06:14 07:25 07:25 WBC 10.03 RBC 3.31 L Hgb 11.1 L Hct 34.2 MCV 103.3 H MCH 33.5 MCHC 32.5 RDW Std Deviation 49.2 H RDW Coeff of Nicolasa 13.1 Plt Count 151 MPV 10.9 Immature Gran % (Auto) 0.7 Neut % (Auto) 69.3 Lymph % (Auto) 18.9 [place] % (Auto) 8.6 Eos % (Auto) 2.0 Baso % (Auto) 0.5 Neut # (Auto) 6.95 H Lymph # (Auto) 1.90 [place] # (Auto) 0.86 H Eos # (Auto) 0.20 Baso # (Auto) 0.05 Immature Gran # (Auto) 0.07 H Sodium 135 L Potassium 4.5 Chloride 97 L Carbon Dioxide 28 Anion Gap 10 BUN 45 H D Creatinine 5.36 H* D Est Cr Clr Drug Dosing 8.7 Est GFR ( Amer) 7.7 Est GFR (Non-Af Amer) 6.6 BUN/Creatinine Ratio 8.4 L Glucose 78 Calcium 7.8 L Hep Bs Antigen Pending Hep Bs Ag Confirmation Pending Hep Bs Antibody, Quant Pending Diagnostic Findings KUB X-Ray 03/10/22 08:48 KUB CLINICAL HISTORY: Nausea, s/p hernia repair COMPARISON STUDY: CT of the abdomen and pelvis March 07, 2022. FINDINGS: Surgical skin onofre are noted. Multiple loops of mildly dilated small bowel measure up to 3.6 cm in caliber. Trace bilateral pleural effusions are present. There are no unexpected radiopaque foreign bodies. Exam is compromised by suboptimal penetration. IMPRESSION: Multiple loops of mildly dilated small bowel. Given recent surgery, a postoperative ileus is favored. However, a partial small bowel obstruction could appear similar. Continued radiographic follow-up is recommended. ACT 112: Negative or not required by law. Electronically signed by: Bruce Montes M.D. 03/10/2022 1:38 PM PG Care Time/CCT Total # of Minutes Spent Total Time Spent with Patient: Total time spent is greater than 50% in coordination of care (as documented) at patient's floor/unit and/or counseling patient: Coding Level of Care Code 43643 Subseq Hosp Care Lvl 2 Diagnoses Incarcerated ventral hernia K43.6 Non-ST elevation [place] (NSTEMI) I21.4 Ischemic cardiomyopathy I25.5 Chronic respiratory failure with hypoxia J96.11 CAD (coronary artery disease), [place] coronary artery I25.10 Associated angina: without angina [place] vs. transplanted heart: [place] heart Anemia N18.6; D63.1; Z99.2 Anemia type: due to chronic kidney disease Chronic kidney disease stage: on chronic dialysis ESRD (end stage renal disease) N18.6 Hypertension I10 Hypertension type: unspecified Hyperlipidemia E78.5 Hyperlipidemia type: unspecified LBBB (left bundle branch block) I44.7 Lone atrial fibrillation I48.91 Sleep apnea G47.33 Sleep apnea type: obstructive Open toe wound S91.109A (1) Sleep apnea Sleep apnea type: obstructive Qualified Code(s): G47.33 - Obstructive sleep apnea (adult) (pediatric) (2) Anemia Anemia type: due to chronic kidney disease Chronic kidney disease stage: on chronic dialysis Qualified Code(s): N18.6 - End stage renal disease; D63.1 - Anemia in chronic kidney disease; Z99.2 - Dependence on renal dialysis (3) Hyperlipidemia Hyperlipidemia type: unspecified Qualified Code(s): E78.5 - Hyperlipidemia, unspecified (4) CAD (coronary artery disease), [place] coronary artery Associated angina: without angina [place] vs. transplanted heart: [place] heart Qualified Code(s): I25.10 - Atherosclerotic heart disease of [place] coronary artery without angina pectoris (5) Hypertension Hypertension type: unspecified Qualified Code(s): I10 - Essential (primary) hypertension
--- NOTE | 2022-03-10 13:39 | XRay Report ---
KUB CLINICAL HISTORY: Nausea, s/p hernia repair COMPARISON STUDY: CT of the abdomen and pelvis March 07, 2022. FINDINGS: Surgical skin onofre are noted. Multiple loops of mildly dilated small bowel measure up to 3.6 cm in caliber. Trace bilateral pleural effusions are present. There are no unexpected radiopaque foreign bodies. Exam is compromised by suboptimal penetration. IMPRESSION: Multiple loops of mildly dilated small bowel. Given recent surgery, a postoperative ileu s is favored. However, a partial small bowel obstruction could appear similar. Continued radiographic follow-up is recommended. ACT 112: Negative or not required by law. Electronically signed by: Bruce Montes M.D. 03/10/2022 1:38 PM
[2022-03-10] MEDS: ATORVASTATIN 40 MG TAB PO SCH (22:44)
[2022-03-10] MEDS: ISOSORBIDE MONO EXTENDED REL 60 MG TABCR PO SCH (22:45)
[2022-03-11] MEDS ORDERED: HEPARIN IV BOLUS 2,000 UNITS in SYRINGE 0 ML IV ONE (07:00)
[2022-03-11] MEDS ORDERED: HEPARIN SOD (PORCINE) 1000 UNIT/ML IV ONE (07:00)
[2022-03-11 07:18] LABS: Basophils # (auto) 0.07 K/uL (0-0.2); Basophils % (auto) 0.7 %; Eosinophils # (auto) 0.35 K/uL (0-0.50); Eosinophils % (auto) 3.4 %; Hematocrit (blood only) 34.4 % (34.1-44.9); Hemoglobin 11.4 g/dl (12.0-16.0); Immature Granulocytes # (auto) 0.08 K/uL (0.00-0.02); Immature Granulocytes % (auto) 0.8 %; Lymphocytes % (auto) 18.6 %; Mean Corpuscular Hemoglobin 33.6 pg (25.0-34.0); Mean Corpuscular Hgb Conc 33.1 g/dL (32.0-36.0); Mean Corpuscular Volume 101.5 fL (80.0-100.0); Mean Platelet Volume 11.3 fL (9.4-12.3); Monocytes # (auto) 0.77 K/uL (0.24-0.82); Monocytes % (auto) 7.5 %; Neutrophils # (auto) 7.05 K/uL (1.4-6.5); Platelet Count 162 K/uL (130-400); RDW Standard Deviation 48.3 fL (36.4-46.3); Red Blood Count 3.39 M/uL (3.93-5.22); White Blood Count 10.22 K/ul (4.8-10.8)
[2022-03-11 07:48] LABS: Calcium 7.5 mg/dl (8.5-10.1); Creatinine Clr Calc Pharmacy 6.9 ml/min; Est GFR (African American) 5.9 ml/min; Est GFR (Non-African American) 5.1 ml/min; Potassium 4.3 mmol/L (3.5-5.1)
[2022-03-11] MEDS: ONDANSETRON INJ 2 MG/ML 2 ML VIAL IV PRN ×2 (07:50→20:26)
[2022-03-11] MEDS ORDERED: PROMETHAZINE HCL 6.25 MG in SODIUM CHLORIDE 0.9% 50 ML IV ONE (08:30)
[2022-03-11] MEDS: ASPIRIN 81 MG ECTAB PO SCH (08:39)
[2022-03-11] MEDS: HEPARIN SOD 5,000 UNIT/0.5 ML VIAL SQ SCH ×2 (08:40→20:26)
[2022-03-11] MEDS: CLOPIDOGREL BISULFATE 75 MG TAB PO SCH (08:40)
[2022-03-11 09:03] LABS: HBSAG NON-REACTIVE (NON-REACTIVE); Hepatitis B Surface Ab, Quant >1000 mIU/mL (> OR = 10)
--- NOTE | 2022-03-11 09:31 | Nephrology Progress Note ---
Date of Service March 11, 2022 Assessment & Plan (1) ESRD (end stage renal disease): Plan: HD MWF. Orders for HD entered into the EHR and reviewed with HD nurse. UF goal 1-2 L as tolerated. Maintain a daily fluid restriction of 1.2 L. Outpatient Rx is MWF x 4 hours on a 180 optiflux with Qb 400 via LUE AVF, Qd 800. Typically requires 2 K bath. EDW 98.5 kg. Medications are appropriately dosed for kidney dysfunction. (2) Anemia: Plan: Hgb stable. (3) Small bowel obstruction: Plan: Secondary to incarcerated ventral hernia. Tolerating clears. (4) Incarcerated ventral hernia: Plan: POD#4 s/p ex lap and ventral hernia repair. (5) Hypertension: Plan: BP acceptable. Hold Coreg predialysis. Torsemide held for now but may be restarted at any time. (6) Pulmonary HTN: Plan: Document strict I/O's and daily weights. Admission and Anticipated Discharge Date Admission Date: March 07, 2022 Subjective No acute events overnight. No complaints this AM. Denies pain. No shortness of breath. Nausea improving. Review of Systems Review of Systems: All systems reviewed & are unremarkable except as noted in HPI & below Physical Exam Constitutional: well developed and + frail appearing; no acute distress Eyes: + anicteric sclerae; no corneal abnormality ENMT: Mouth: no oral mucosal abnormality and oral mucous membranes not dry Neck: normal visual inspection and trachea midline Respiratory: normal respiratory effort Auscultation: lungs clear to auscultation bilaterally and + rales Cardiovascular: Rate/Rhythm: regular rate Heart Sounds: normal S1, normal S2 and + murmur Extremities: + AV fistula; no edema Musculoskeletal: Extremities: no cyanosis and no clubbing Skin: + turgor decreased; no lesions Neurologic: Motor/Sensory: no tremor and no asterixis Psychiatric: Orientation: alert and oriented x 3 Results & Data ([facility]) Vital Signs (Past 12 Hours) Vital Signs Temp Pulse Resp BP Pulse Ox O2 Del Method O2 Flow Rate 03/11/22 07:54 37.0 C 79 16 116/67 97 Nasal Cannula 2 03/11/22 00:09 Nasal Cannula 2 03/10/22 23:00 36.8 C 82 18 117/75 97 Nasal Cannula 2 Laboratory Results Laboratory Results - last 24 hr 03/08/22 03/10/22 03/11/22 06:14 07:25 06:30 WBC 10.22 RBC 3.39 L Hgb 11.4 L Hct 34.4 MCV 101.5 H MCH 33.6 MCHC 33.1 RDW Std Deviation 48.3 H RDW Coeff of Nicolasa 13.0 Plt Count 162 MPV 11.3 Immature Gran % (Auto) 0.8 Neut % (Auto) 69.0 Lymph % (Auto) 18.6 [place] % (Auto) 7.5 Eos % (Auto) 3.4 Baso % (Auto) 0.7 Neut # (Auto) 7.05 H Lymph # (Auto) 1.90 [place] # (Auto) 0.77 Eos # (Auto) 0.35 Baso # (Auto) 0.07 Immature Gran # (Auto) 0.08 H Sodium Potassium Chloride Carbon Dioxide Anion Gap BUN Creatinine Est Cr Clr Drug Dosing Est GFR ( Amer) Est GFR (Non-Af Amer) BUN/Creatinine Ratio Glucose Calcium Troponin I High Sens 2308.9 H* Hep Bs Antigen NON-REACTIVE Hep Bs Ag Confirmation TNP Hep Bs Antibody, Quant >1000 03/11/22 06:30 WBC RBC Hgb Hct MCV MCH MCHC RDW Std Deviation RDW Coeff of Nicolasa Plt Count MPV Immature Gran % (Auto) Neut % (Auto) Lymph % (Auto) [place] % (Auto) Eos % (Auto) Baso % (Auto) Neut # (Auto) Lymph # (Auto) [place] # (Auto) Eos # (Auto) Baso # (Auto) Immature Gran # (Auto) Sodium 135 L Potassium 4.3 Chloride 97 L Carbon Dioxide 26 Anion Gap 12 H BUN 60 H Creatinine 6.67 H* D Est Cr Clr Drug Dosing 6.9 Est GFR ( Amer) 5.9 Est GFR (Non-Af Amer) 5.1 BUN/Creatinine Ratio 9.0 L Glucose 120 H Calcium 7.5 L Troponin I High Sens Hep Bs Antigen Hep Bs Ag Confirmation Hep Bs Antibody, Quant PG Care Time/CCT Total # of Minutes Spent Total Time Spent with Patient: Total time spent is greater than 50% in coordination of care (as documented) at patient's floor/unit and/or counseling patient: Coding Level of Care Code 40659 Subseq Hosp Care Lvl 3 Diagnoses ESRD (end stage renal disease) N18.6 Anemia N18.6; D63.1; Z99.2 Anemia type: due to chronic kidney disease Chronic kidney disease stage: on chronic dialysis Small bowel obstruction K56.609 Incarcerated ventral hernia K43.6 Hypertension I10 Hypertension type: unspecified Pulmonary HTN I27.20 (1) Anemia Anemia type: due to chronic kidney disease Chronic kidney disease stage: on chronic dialysis Qualified Code(s): N18.6 - End stage renal disease; D63.1 - Anemia in chronic kidney disease; Z99.2 - Dependence on renal dialysis (2) Hypertension Hypertension type: unspecified Qualified Code(s): I10 - Essential (primary) hypertension
--- NOTE | 2022-03-11 11:47 | Surgery Progress Note ---
Date of Service March 11, 2022 Assessment & Plan (1) Incarcerated ventral hernia: Plan: POD#4 ex lap, ventral hernia repair KUB results noted from yesterday Some ongoing nausea, but not worsening. Denies emesis. She is starting to pass flatus Has been tolerating clears, will advance to full liquids for today and see how she fairs incisions c/d/i, onofre and randy in place currently undergoing routine dialysis appreciate hospitalists, cardiology, and nephrology assistance with her care Admission and Anticipated Discharge Date Admission Date: March 07, 2022 Supervising Physician Co-Signing Physician Notes I personally saw and evaluated the patient with Rocío Davidson PA-C and agree with the assessment and plan. 87-year-old female postoperative day 4 exploratory laparotomy partial omentectomy and repair of incarcerated ventral hernia Will advance to fulls to see how she tolerates this Incision looks good with [place] in place Appreciate nephro, medicine and cards input DVT prophylaxis with heparin q 12 Subjective Patient seen in the dialysis unit. Denies abdominal pain or emesis. Has been having some mild persisting nausea, but currently at rest denies it. She is passing gas at this point. No BM yet. Physical Exam Physical Exam: awake/alert Gastrointestinal (Abdomen): Inspection/Auscultation: + abdominal surgical incision (midline incision c/d/i with stapless + randy. no signs of infection); abdomen not distended Percussion/Palpation: abdomen soft; abdomen nontender Results & Data ([facility]) Vital Signs (Past 12 Hours) Vital Signs Temp Pulse Pulse Pulse Resp BP BP 03/11/22 10:30 82 91/45 L 03/11/22 11:30 76 92/46 L 03/11/22 11:00 80 96/48 L 03/11/22 10:15 74 84/49 L 03/11/22 10:00 74 97/49 L 03/11/22 09:30 73 99/49 L 03/11/22 09:27 74 105/52 L 03/11/22 09:11 36.4 C L 76 03/11/22 07:54 37.0 C 79 16 116/67 03/11/22 00:09 Pulse Ox O2 Del Method O2 Flow Rate 03/11/22 10:30 03/11/22 11:30 03/11/22 11:00 03/11/22 10:15 03/11/22 10:00 03/11/22 09:30 03/11/22 09:27 03/11/22 09:11 03/11/22 07:54 97 Nasal Cannula 2 03/11/22 00:09 Nasal Cannula 2 PG Care Time/CCT Total # of Minutes Spent Total Time Spent with Patient: Total time spent is greater than 50% in coordination of care (as documented) at patient's floor/unit and/or counseling patient: Coding Level of Care Code None Diagnoses Incarcerated ventral hernia K43.6
--- NOTE | 2022-03-11 20:15 | Hospitalist Progress Note ---
Date of Service March 11, 2022 Assessment & Plan (1) Incarcerated ventral hernia: Plan: Incarcerated ventral hernia with SBO -- POD #4 s/p Exploratory Laparotomy, Partial Omentectomy, and ventral hernia repair - Waqas Pao Love, DO Remains on liquid diet at this time - managed by surgery awaiting return of bowel function; no stool yet zofran prn gave tiny dose of phenergan this am due to refractory nausea - surgery aware (2) Non-ST elevation [place] (NSTEMI): Plan: Peak HS troponin 43772. Echo with ischemic cardiomyopathy. Last heart cath was 2012 s/p RCA stents; LAD and LCx with coronary disease at that time as well. [facility] [place] -- conservative measures to be employed at this time. heparin infusion deferred. cardiac catheterization deferred. Cont asa 81mg daily. Cont plavix 75mg daily. Cont coreg 12.5mg HS and 12.5mg qam on non-HD days. Cont statin. Cont imdur 60mg daily. Most recent troponin continues to trend down. (3) Ischemic cardiomyopathy: Plan: EF 35-40% on today's echo. The apex is akinetic, and the basal septum is severely hypokinetic. These findings are consistent with ischemic cardiomyopathy. The echo findings support that she likely had an NSTEMI event perioperatively. consider adding RONY or ARB to her BB. HD will provide volume control in setting of ESRD. (4) Chronic respiratory failure with hypoxia: Plan: NC O2 2 liters, with CPAP at HS for GURPREET. stable. (5) CAD (coronary artery disease), [place] coronary artery: Plan: see #2 appreciate cardiology consultation (6) Anemia: Plan: Macrocytic B12, folate, TSH wnl Could have other micronutrient deficiency contributing (copper, etc) Fe studies most c/w anemia of chronic disease likely from #7 below H/H remain stable/acceptable (7) ESRD (end stage renal disease): Plan: appreciate nephrology consultation for HD needs HD schedule - M/W/F - s/p HD today typically dialyzes at [facility] left arm AV fistula in place (8) Hypertension: Plan: Continue home carvedilol, isosorbide Holding home torsemide Blood pressures are controlled Consider RONY or ARB due to ischemic cardiomyopathy/depressed EF (9) Hyperlipidemia: Plan: cont statin (10) LBBB (left bundle branch block): Plan: Chronic unchanged (11) Lone atrial fibrillation: Plan: solitary episode years ago cont coreg not on chronic anticoagulation for such tele stable with no PAF (12) Sleep apnea: Plan: Continue CPAP at bedtime-AutoPap ranging from 5-10 mmHg (13) Open toe wound: Plan: Right second toe - wound care consult placed appreciate their assistance Plan DVT proph - heparin 5000 BID pt's son, Dr Griffin Watson, updated several times this week Admission and Anticipated Discharge Date Admission Date: March 07, 2022 Subjective nausea this am - but improved by the evening had HD today w/o incident passing flatus but no stool no vomiting tolerating liquids no other new issues Review of Systems Review of Systems: cv - no orthopnea or chest pain pulm - no dyspnea or cough GI - minimal abdominal pain Physical Exam Physical Exam: gen - resting comfortably in bed, NAD; looks better today mouth - MMM neck - no JVD heart - RRR, s1 s2, no murmur lungs - CTA b/l abd - mildly distended; BS+ with improved sounds today; dressings intact central abdomen; NT ext - trace edema b/l, pulses both legs 2+ b/l Results & Data Results & Data ([facility]) Vital Signs (Past 12 Hours) Vital Signs Temp Pulse Pulse Pulse Pulse Resp BP 03/11/22 19:38 37.0 C 81 18 03/11/22 15:46 36.9 C 85 16 03/11/22 13:30 85 113/53 L 03/11/22 13:35 36.5 C 81 03/11/22 13:00 79 102/52 L 03/11/22 12:30 67 104/52 L 03/11/22 12:00 79 96/46 L 03/11/22 11:50 83 99/48 L 03/11/22 11:45 78 86/45 L 03/11/22 10:30 82 91/45 L 03/11/22 11:30 76 92/46 L 03/11/22 11:00 80 96/48 L 03/11/22 10:15 74 84/49 L 03/11/22 10:00 74 97/49 L 03/11/22 09:30 73 99/49 L 03/11/22 09:27 74 105/52 L 03/11/22 09:11 36.4 C L 76 BP Pulse Ox O2 Del Method 03/11/22 19:38 137/63 94 Room Air 03/11/22 15:46 128/61 93 Room Air 03/11/22 13:30 03/11/22 13:35 117/55 L 03/11/22 13:00 03/11/22 12:30 03/11/22 12:00 03/11/22 11:50 03/11/22 11:45 03/11/22 10:30 03/11/22 11:30 03/11/22 11:00 03/11/22 10:15 03/11/22 10:00 03/11/22 09:30 03/11/22 09:27 03/11/22 09:11 Laboratory Results Laboratory Results - last 24 hr 03/08/22 03/11/22 03/11/22 06:14 06:30 06:30 WBC 10.22 RBC 3.39 L Hgb 11.4 L Hct 34.4 MCV 101.5 H MCH 33.6 MCHC 33.1 RDW Std Deviation 48.3 H RDW Coeff of Nicolasa 13.0 Plt Count 162 MPV 11.3 Immature Gran % (Auto) 0.8 Neut % (Auto) 69.0 Lymph % (Auto) 18.6 [place] % (Auto) 7.5 Eos % (Auto) 3.4 Baso % (Auto) 0.7 Neut # (Auto) 7.05 H Lymph # (Auto) 1.90 [place] # (Auto) 0.77 Eos # (Auto) 0.35 Baso # (Auto) 0.07 Immature Gran # (Auto) 0.08 H Sodium 135 L Potassium 4.3 Chloride 97 L Carbon Dioxide 26 Anion Gap 12 H BUN 60 H Creatinine 6.67 H* D Est Cr Clr Drug Dosing 6.9 Est GFR ( Amer) 5.9 Est GFR (Non-Af Amer) 5.1 BUN/Creatinine Ratio 9.0 L Glucose 120 H Calcium 7.5 L Hep Bs Antigen NON-REACTIVE Hep Bs Ag Confirmation TNP Hep Bs Antibody, Quant >1000 PG Care Time/CCT Total # of Minutes Spent Total Time Spent with Patient: Total time spent is greater than 50% in coordination of care (as documented) at patient's floor/unit and/or counseling patient: Coding Level of Care Code 90531 Subseq Hosp Care Lvl 1 Diagnoses Incarcerated ventral hernia K43.6 Non-ST elevation MA (NSTEMI) I21.4 Ischemic cardiomyopathy I25.5 Chronic respiratory failure with hypoxia J96.11 CAD (coronary artery disease), [place] coronary artery I25.10 Associated angina: without angina [place] vs. transplanted heart: [place] heart Anemia N18.6; D63.1; Z99.2 Anemia type: due to chronic kidney disease Chronic kidney disease stage: on chronic dialysis ESRD (end stage renal disease) N18.6 Hypertension I10 Hypertension type: unspecified Hyperlipidemia E78.5 Hyperlipidemia type: unspecified LBBB (left bundle branch block) I44.7 Lone atrial fibrillation I48.91 Sleep apnea G47.33 Sleep apnea type: obstructive Open toe wound S91.109A (1) Sleep apnea Sleep apnea type: obstructive Qualified Code(s): G47.33 - Obstructive sleep apnea (adult) (pediatric) (2) Anemia Anemia type: due to chronic kidney disease Chronic kidney disease stage: on chronic dialysis Qualified Code(s): N18.6 - End stage renal disease; D63.1 - Anemia in chronic kidney disease; Z99.2 - Dependence on renal dialysis (3) Hyperlipidemia Hyperlipidemia type: unspecified Qualified Code(s): E78.5 - Hyperlipidemia, unspecified (4) CAD (coronary artery disease), [place] coronary artery Associated angina: without angina [place] vs. transplanted heart: [place] heart Qualified Code(s): I25.10 - Atherosclerotic heart disease of [place] coronary artery without angina pectoris (5) Hypertension Hypertension type: unspecified Qualified Code(s): I10 - Essential (primary) hypertension
[2022-03-11] MEDS: ISOSORBIDE MONO EXTENDED REL 60 MG TABCR PO SCH (20:26)
[2022-03-11] MEDS: ATORVASTATIN 40 MG TAB PO SCH (20:26)
[2022-03-11] MEDS: MELATONIN 3 MG TAB PO SCH (20:26)
[2022-03-11] MEDS: carvediloL 12.5 MG TAB PO SCH (20:26)
[2022-03-11] MEDS ORDERED: PROMETHAZINE HCL 6.25 MG in SODIUM CHLORIDE 0.9% 50 ML IV STA (23:30)
[2022-03-12] MEDS ORDERED: bisacodyL 10 MG SUPP PR STA (08:01)
--- NOTE | 2022-03-12 08:01 | Surgery Progress Note ---
Date of Service March 12, 2022 Assessment & Plan (1) Incarcerated ventral hernia: Plan: Continue full liquids Will try Dulcolax suppository x1 Reji with the bedside DVT prophylaxis Heparin every 12 Appreciate nephro, cards, medicine input (2) Small bowel obstruction: Admission and Anticipated Discharge Date Admission Date: March 07, 2022 Subjective Patient seen and examined. Still with some nausea. Passing a lot of flatus. No BM. Afebrile. Physical Exam Constitutional: WD/WN, vitals as above Gastrointestinal (Abdomen): Soft, nontender, midline incision with onofre no erythema [place] in place Results & Data ([facility]) Vital Signs (Past 12 Hours) Vital Signs Temp Pulse Resp BP Pulse Ox O2 Del Method 03/12/22 07:00 36.7 C 77 17 138/59 L Room Air 03/11/22 23:18 36.9 C 73 18 114/54 L 93 Room Air PG Care Time/CCT Total # of Minutes Spent Total Time Spent with Patient: Total time spent is greater than 50% in coordination of care (as documented) at patient's floor/unit and/or counseling patient: Coding Level of Care Code None Diagnoses Incarcerated ventral hernia K43.6 Small bowel obstruction K56.609
[2022-03-12 08:17] LABS: Basophils # (auto) 0.07 K/uL (0-0.2); Basophils % (auto) 0.9 %; Eosinophils # (auto) 0.37 K/uL (0-0.50); Eosinophils % (auto) 4.6 %; Hematocrit (blood only) 35.3 % (34.1-44.9); Hemoglobin 11.5 g/dl (12.0-16.0); Immature Granulocytes # (auto) 0.08 K/uL (0.00-0.02); Lymphocytes # (auto) 1.93 K/uL (1.2-3.4); Lymphocytes % (auto) 23.7 %; Mean Corpuscular Hemoglobin 33.1 pg (25.0-34.0); Mean Corpuscular Hgb Conc 32.6 g/dL (32.0-36.0); Mean Corpuscular Volume 101.7 fL (80.0-100.0); Mean Platelet Volume 10.7 fL (9.4-12.3); Monocytes # (auto) 0.74 K/uL (0.24-0.82); Monocytes % (auto) 9.1 %; Neutrophils # (auto) 4.94 K/uL (1.4-6.5); Neutrophils % (auto) 60.7 %; Platelet Count 167 K/uL (130-400); RDW Coefficient of Variation 12.9 % (11.5-14.5); RDW Standard Deviation 48.2 fL (36.4-46.3); Red Blood Count 3.47 M/uL (3.93-5.22); White Blood Count 8.13 K/ul (4.8-10.8)
[2022-03-12 08:53] LABS: BUN Creatinine Ratio 6.7 (10-20); Calcium 7.8 mg/dl (8.5-10.1); Creatinine Clr Calc Pharmacy 10.7 ml/min; Est GFR (Non-African American) 8.6 ml/min
[2022-03-12] MEDS: carvediloL 12.5 MG TAB PO SCH ×2 (09:06→21:33)
[2022-03-12] MEDS: ASPIRIN 81 MG ECTAB PO SCH (09:06)
[2022-03-12] MEDS: HEPARIN SOD 5,000 UNIT/0.5 ML VIAL SQ SCH ×2 (09:06→21:34)
[2022-03-12] MEDS: CLOPIDOGREL BISULFATE 75 MG TAB PO SCH (09:06)
--- NOTE | 2022-03-12 11:25 | Nephrology Progress Note ---
Date of Service March 12, 2022 Assessment & Plan (1) ESRD (end stage renal disease): Plan: HD MWF. BP and volume status acceptable. Clearance with treatment appropriate. Next planned HD is tomorrow. Maintain a daily fluid restriction of 1.2 L. Outpatient Rx is MWF x 4 hours on a 180 optiflux with Qb 400 via LUE AVF, Qd 800. Typically requires 2 K bath. EDW 98.5 kg. Medications are appropriately dosed for kidney dysfunction. (2) Anemia: Plan: Hgb stable. (3) Small bowel obstruction: Plan: Secondary to incarcerated ventral hernia. Diet advanced to full liquid per surgery. No BM but passing flatus. (4) Incarcerated ventral hernia: Plan: POD#5 s/p ex lap and ventral hernia repair. (5) Hypertension: Plan: BP acceptable. Hold Coreg predialysis. Torsemide held for now but may be restarted at any time. (6) Pulmonary HTN: Plan: Document strict I/O's and daily weights. Admission and Anticipated Discharge Date Admission Date: March 07, 2022 Subjective No acute events overnight. Sitting comfortably in bedside chair this AM. Tolerated HD yesterday without complications. Denies fluid retention or edema. AVF functioning well. No BM. Appetite fair, tolerating clear to full liquids. Denies significant pain. Review of Systems Review of Systems: All systems reviewed & are unremarkable except as noted in HPI & below Physical Exam Constitutional: well developed and + frail appearing; no acute distress and not ill appearing Eyes: + anicteric sclerae; no corneal abnormality ENMT: Mouth: no oral mucosal abnormality and oral mucous membranes not dry Neck: normal visual inspection and trachea midline Respiratory: normal respiratory effort and + tachypneic Auscultation: lungs clear to auscultation bilaterally and + rales Cardiovascular: Rate/Rhythm: regular rate Heart Sounds: normal S1, normal S2 and + murmur Extremities: + pedal edema and + AV fistula; no edema Gastrointestinal (Abdomen): Inspection/Auscultation: + abdomen distended and + hypoactive bowel sounds Percussion/Palpation: abdomen soft Musculoskeletal: Extremities: no cyanosis and no clubbing Skin: + turgor decreased; no lesions Neurologic: Motor/Sensory: no tremor and no asterixis Psychiatric: Orientation: alert and oriented x 3 Results & Data ([facility]) Vital Signs (Past 12 Hours) Vital Signs Temp Pulse Resp BP O2 Del Method 03/12/22 07:00 36.7 C 77 17 138/59 L Room Air Laboratory Results Laboratory Results - last 24 hr 03/12/22 03/12/22 07:32 07:32 WBC 8.13 RBC 3.47 L Hgb 11.5 L Hct 35.3 MCV 101.7 H MCH 33.1 MCHC 32.6 RDW Std Deviation 48.2 H RDW Coeff of Nicolasa 12.9 Plt Count 167 MPV 10.7 Immature Gran % (Auto) 1.0 Neut % (Auto) 60.7 Lymph % (Auto) 23.7 [place] % (Auto) 9.1 Eos % (Auto) 4.6 Baso % (Auto) 0.9 Neut # (Auto) 4.94 Lymph # (Auto) 1.93 [place] # (Auto) 0.74 Eos # (Auto) 0.37 Baso # (Auto) 0.07 Immature Gran # (Auto) 0.08 H Sodium 136 Potassium 4.0 Chloride 100 Carbon Dioxide 29 Anion Gap 7 BUN 29 H D Creatinine 4.33 H D Est Cr Clr Drug Dosing 10.7 Est GFR ( Amer) 10.0 Est GFR (Non-Af Amer) 8.6 BUN/Creatinine Ratio 6.7 L Glucose 112 H Calcium 7.8 L PG Care Time/CCT Total # of Minutes Spent Total Time Spent with Patient: Total time spent is greater than 50% in coordination of care (as documented) at patient's floor/unit and/or counseling patient: Coding Level of Care Code 39480 Subseq Hosp Care Lvl 3 Diagnoses ESRD (end stage renal disease) N18.6 Anemia N18.6; D63.1; Z99.2 Anemia type: due to chronic kidney disease Chronic kidney disease stage: on chronic dialysis Small bowel obstruction K56.609 Incarcerated ventral hernia K43.6 Hypertension I10 Hypertension type: unspecified Pulmonary HTN I27.20 (1) Anemia Anemia type: due to chronic kidney disease Chronic kidney disease stage: on chronic dialysis Qualified Code(s): N18.6 - End stage renal disease; D63.1 - Anemia in chronic kidney disease; Z99.2 - Dependence on renal dialysis (2) Hypertension Hypertension type: unspecified Qualified Code(s): I10 - Essential (primary) hypertension
--- NOTE | 2022-03-12 21:18 | Hospitalist Progress Note ---
Date of Service March 12, 2022 Assessment & Plan (1) Incarcerated ventral hernia: Plan: Presented with SBO 2nd to the ventral hernia. POD #5 s/p Exploratory Laparotomy, Partial Omentectomy, and ventral hernia repair - Waqas Love, DO Remains on liquid diet at this time - managed by surgery bowel function returning - passing flatus/ stool overall doing well from surgical standpoint (2) Non-ST elevation [place] (NSTEMI): Plan: Peak HS troponin 93540. Echo with ischemic cardiomyopathy. Last heart cath was 2012 s/p RCA stents; LAD and LCx with coronary disease at that time as well. [facility] -- conservative measures to be employed at this time. heparin infusion deferred. cardiac catheterization deferred. Cont asa 81mg daily. Cont plavix 75mg daily. Cont coreg 12.5mg HS and 12.5mg qam on non-HD days. Cont statin. Cont imdur 60mg daily. Most recent troponin continues to trend down. (3) Ischemic cardiomyopathy: Plan: EF 35-40% on echo this admission. The apex is akinetic, and the basal septum is severely hypokinetic. These findings are consistent with ischemic cardiomyopathy. The echo findings support that she likely had an NSTEMI event perioperatively. HD will provide volume control in setting of ESRD. Cont beta davey. Will add losartan 25mg on Wednesday, Wednesday, , Wednesday (non-HD days). (4) Chronic respiratory failure with hypoxia: Plan: NC O2 2 liters with CPAP at HS for GUPRREET. stable o2 sats during the day. (5) CAD (coronary artery disease), [place] coronary artery: Plan: see #2 appreciate cardiology consultation (6) Anemia: Plan: Macrocytic B12, folate, TSH wnl Could have other micronutrient deficiency contributing (copper, etc) Fe studies most c/w anemia of chronic disease likely from #7 below H/H remain stable/acceptable (7) ESRD (end stage renal disease): Plan: appreciate nephrology consultation for HD needs HD schedule - M/W/F - s/p HD today typically dialyzes at [facility] left arm AV fistula in place (8) Hypertension: Plan: Continue home carvedilol, isosorbide Holding home torsemide Blood pressures are controlled Add low-dose ARB on non-HD days for ischemic cardiomyopathy/depressed EF as advised by cardiology (9) Hyperlipidemia: Plan: cont statin LDL 52 in 2019 no lipids since check a lipid profile during the stay (10) LBBB (left bundle branch block): Plan: Chronic unchanged (11) Lone atrial fibrillation: Plan: solitary episode years ago cont coreg not on chronic anticoagulation for such tele had been stable with no PAF (12) Sleep apnea: Plan: Continue CPAP at bedtime-AutoPap ranging from 5-10 mmHg (13) Open toe wound: Plan: Right second toe - wound care consult placed appreciate their assistance Plan DVT proph - heparin 5000 BID pt's son, Dr Griffin Watson, updated several times this week Admission and Anticipated Discharge Date Admission Date: March 07, 2022 Subjective tolerating full liquids had 2 small BMs per nursing staff passing flatus still with on/off nausea but no vomiting PT/OT came by to see her and she declined therapy no new issues Review of Systems Review of Systems: cv - no chest pain pulm - no dyspnea, no cough GI - no vomiting psych - sleeping ok Physical Exam Physical Exam: gen - resting comfortably in bed, NAD mouth - MMM neck - no JVD heart - RRR, s1 s2, no murmur lungs - CTA b/l abd - mildly distended - a bit better today; BS+; dressings intact central abdomen; NT ext - trace edema b/l, pulses both legs 2+ b/l psych - a/o x 3 Results & Data Results & Data ([facility]) Vital Signs (Past 12 Hours) Vital Signs Temp Pulse Resp BP Pulse Ox O2 Del Method 03/12/22 20:21 37.2 C 79 18 116/62 94 Room Air 03/12/22 16:09 37.0 C 74 17 146/79 H 96 Room Air Laboratory Results Laboratory Results - last 24 hr 03/12/22 03/12/22 07:32 07:32 WBC 8.13 RBC 3.47 L Hgb 11.5 L Hct 35.3 MCV 101.7 H MCH 33.1 MCHC 32.6 RDW Std Deviation 48.2 H RDW Coeff of Nicolasa 12.9 Plt Count 167 MPV 10.7 Immature Gran % (Auto) 1.0 Neut % (Auto) 60.7 Lymph % (Auto) 23.7 [place] % (Auto) 9.1 Eos % (Auto) 4.6 Baso % (Auto) 0.9 Neut # (Auto) 4.94 Lymph # (Auto) 1.93 [place] # (Auto) 0.74 Eos # (Auto) 0.37 Baso # (Auto) 0.07 Immature Gran # (Auto) 0.08 H Sodium 136 Potassium 4.0 Chloride 100 Carbon Dioxide 29 Anion Gap 7 BUN 29 H D Creatinine 4.33 H D Est Cr Clr Drug Dosing 10.7 Est GFR ( Amer) 10.0 Est GFR (Non-Af Amer) 8.6 BUN/Creatinine Ratio 6.7 L Glucose 112 H Calcium 7.8 L PG Care Time/CCT Total # of Minutes Spent Total Time Spent with Patient: Total time spent is greater than 50% in coordination of care (as documented) at patient's floor/unit and/or counseling patient: Coding Level of Care Code 79421 Subseq Hosp Care Lvl 1 Diagnoses Incarcerated ventral hernia K43.6 Non-ST elevation [place] (NSTEMI) I21.4 Ischemic cardiomyopathy I25.5 Chronic respiratory failure with hypoxia J96.11 CAD (coronary artery disease), [place] coronary artery I25.10 Associated angina: without angina [place] vs. transplanted heart: [place] heart Anemia N18.6; D63.1; Z99.2 Anemia type: due to chronic kidney disease Chronic kidney disease stage: on chronic dialysis ESRD (end stage renal disease) N18.6 Hypertension I10 Hypertension type: unspecified Hyperlipidemia E78.5 Hyperlipidemia type: unspecified LBBB (left bundle branch block) I44.7 Lone atrial fibrillation I48.91 Sleep apnea G47.33 Sleep apnea type: obstructive Open toe wound S91.109A (1) Sleep apnea Sleep apnea type: obstructive Qualified Code(s): G47.33 - Obstructive sleep apnea (adult) (pediatric) (2) Anemia Anemia type: due to chronic kidney disease Chronic kidney disease stage: on chronic dialysis Qualified Code(s): N18.6 - End stage renal disease; D63.1 - Anemia in chronic kidney disease; Z99.2 - Dependence on renal dialysis (3) Hyperlipidemia Hyperlipidemia type: unspecified Qualified Code(s): E78.5 - Hyperlipidemia, unspecified (4) CAD (coronary artery disease), [place] coronary artery Associated angina: without angina [place] vs. transplanted heart: [place] heart Qualified Code(s): I25.10 - Atherosclerotic heart disease of [place] coronary artery without angina pectoris (5) Hypertension Hypertension type: unspecified Qualified Code(s): I10 - Essential (primary) hypertension
[2022-03-12] MEDS: ISOSORBIDE MONO EXTENDED REL 60 MG TABCR PO SCH (21:32)
[2022-03-12] MEDS: MELATONIN 3 MG TAB PO SCH (21:34)
[2022-03-12] MEDS: ATORVASTATIN 40 MG TAB PO SCH (21:34)
--- NOTE | 2022-03-12 23:19 | Electrocardiogram Report ---
Test Reason : Blood Pressure : / mmHG Vent. Rate : 082 BPM Atrial Rate : 082 BPM P-R Int : 184 ms QRS Dur : 146 ms QT Int : 454 ms P-R-T Axes : 069 -14 051 degrees QTc Int : 530 ms Normal sinus rhythm Left bundle branch block Abnormal ECG When compared with ECG of 07-MAR-2022 04:21, No significant change was found Confirmed by Simon Delong [id number]) on 03/12/2022 11:19:12 PM Referred By: Daniela Jones Confirmed By:Simon Delong
[2022-03-13] MEDS ORDERED: HEPARIN SOD (PORCINE) 1000 UNIT/ML IV ONE ×2 (07:00→08:00)
[2022-03-13] MEDS ORDERED: HEPARIN BOLUS IV ONE (07:00)
[2022-03-13] MEDS ORDERED: HEPARIN IV BOLUS 2,000 UNITS in SYRINGE 0 ML IV ONE (07:00)
--- NOTE | 2022-03-13 09:08 | Surgery Progress Note ---
Date of Service March 13, 2022 Assessment & Plan (1) Incarcerated ventral hernia: Plan: Advance to low fiber diet She has some return of bowel function She tolerates her low fiber diet today she can be discharged back to [facility] from a surgical standpoint Will talk to medicine to see if there is anything from their standpoint to keep her in the hospital (2) Small bowel obstruction: Admission and Anticipated Discharge Date Admission Date: March 07, 2022 Subjective Patient seen and examined. Tolerating full liquids with less nausea. She did have a couple bowel movements yesterday. She continues to pass flatus. Pain controlled. Afebrile. Physical Exam Constitutional: WD/WN, vitals as above Gastrointestinal (Abdomen): Inspection/Auscultation: abdomen normal to inspection; abdomen not distended Percussion/Palpation: abdomen soft; abdomen nontender, no guarding and no hernia Incision with onofre in place, no erythema or drainage Results & Data ([facility]) Vital Signs (Past 12 Hours) Vital Signs Temp Pulse Resp BP Pulse Ox O2 Del Method 03/13/22 07:12 37.1 C 82 17 139/55 L 96 Room Air 03/13/22 03:53 36.8 C 76 18 119/82 95 Room Air 03/12/22 23:30 37.2 C 76 16 109/46 L 93 Room Air 03/12/22 21:29 86 136/56 L 94 Room Air PG Care Time/CCT Total # of Minutes Spent Total Time Spent with Patient: Total time spent is greater than 50% in coordination of care (as documented) at patient's floor/unit and/or counseling patient: Coding Level of Care Code None Diagnoses Incarcerated ventral hernia K43.6 Small bowel obstruction K56.609
[2022-03-13] MEDS ORDERED: traMADol HCL 50 MG TABLET PO PRN (10:10)
[2022-03-13] MEDS: ONDANSETRON INJ 2 MG/ML 2 ML VIAL IV PRN (10:26)
[2022-03-13] MEDS ORDERED: PROMETHAZINE HCL 6.25 MG in SODIUM CHLORIDE 0.9% 50 ML IV STA (11:08)
--- NOTE | 2022-03-13 11:21 | Nephrology Progress Note ---
Date of Service March 13, 2022 Assessment & Plan (1) ESRD (end stage renal disease): Plan: HD MWF. BP and volume status acceptable. Clearance with treatment appropriate. Orders for HD entered into the EHR and reviewed with dialysis nurse. Tolerating HD well. UF goal 1 L. Clearance acceptable. Maintain a daily fluid restriction of 1.2 L. Outpatient Rx is MWF x 4 hours on a 180 optiflux with Qb 400 via LUE AVF, Qd 800. Typically requires 2 K bath. EDW 98.5 kg. Medications are appropriately dosed for kidney dysfunction. (2) Anemia: Plan: Hgb stable. Iron profile acceptable. ELVIA therapy has not been required. (3) Small bowel obstruction: Plan: Secondary to incarcerated ventral hernia. (4) Incarcerated ventral hernia: Plan: POD#6 s/p ex lap and ventral hernia repair. (5) Hypertension: Plan: BP acceptable. Hold Coreg predialysis. Torsemide held for now but may be restarted at any time. (6) Pulmonary HTN: Plan: Document strict I/O's and daily weights. Admission and Anticipated Discharge Date Admission Date: March 07, 2022 Subjective No acute events overnight. Judi was seen and evaluated during HD today. She is tolerating treatment well. Nausea persists. No vomiting. Denies significant pain. She moved her bowels yesterday afternoon. No melena or hematochezia. Review of Systems Review of Systems: All systems reviewed & are unremarkable except as noted in HPI & below Physical Exam Constitutional: well developed and + frail appearing; no acute distress and not ill appearing Eyes: + anicteric sclerae; no corneal abnormality ENMT: Mouth: no oral mucosal abnormality and oral mucous membranes not dry Neck: normal visual inspection and trachea midline Respiratory: normal respiratory effort and + tachypneic Auscultation: lungs clear to auscultation bilaterally and + rales Cardiovascular: Rate/Rhythm: regular rate Heart Sounds: normal S1, normal S2 and + murmur Extremities: + pedal edema and + AV fistula; no edema Musculoskeletal: Extremities: no cyanosis and no clubbing Skin: + turgor decreased; no jaundice Neurologic: Motor/Sensory: no tremor and no asterixis Psychiatric: Orientation: alert and oriented x 3 Results & Data ([facility]) Vital Signs (Past 12 Hours) Vital Signs Temp Pulse Pulse Pulse Resp BP BP 03/13/22 11:00 76 122/53 L 03/13/22 10:30 73 117/46 L 03/13/22 10:00 74 110/54 L 03/13/22 09:35 74 109/47 L 03/13/22 09:16 37 C 78 03/13/22 07:12 37.1 C 82 17 139/55 L 03/13/22 03:53 36.8 C 76 18 119/82 03/12/22 23:30 37.2 C 76 16 109/46 L Pulse Ox O2 Del Method 03/13/22 11:00 03/13/22 10:30 03/13/22 10:00 03/13/22 09:35 03/13/22 09:16 03/13/22 07:12 96 Room Air 03/13/22 03:53 95 Room Air 03/12/22 23:30 93 Room Air Laboratory Results Laboratory Results - last 24 hr 03/13/22 03/13/22 05:34 05:34 Potassium 4.2 Iron 75 TIBC 161 L Unsaturated IBC 86 L Transferrin % Sat 47 Ferritin 1556.0 H PG Care Time/CCT Total # of Minutes Spent Total Time Spent with Patient: Total time spent is greater than 50% in coordination of care (as documented) at patient's floor/unit and/or counseling patient: Coding Level of Care Code 35238 Subseq Hosp Care Lvl 3 Diagnoses ESRD (end stage renal disease) N18.6 Anemia N18.6; D63.1; Z99.2 Anemia type: due to chronic kidney disease Chronic kidney disease stage: on chronic dialysis Small bowel obstruction K56.609 Incarcerated ventral hernia K43.6 Hypertension I10 Hypertension type: unspecified Pulmonary HTN I27.20 (1) Anemia Anemia type: due to chronic kidney disease Chronic kidney disease stage: on chronic dialysis Qualified Code(s): N18.6 - End stage renal disease; D63.1 - Anemia in chronic kidney disease; Z99.2 - Dependence on renal dialysis (2) Hypertension Hypertension type: unspecified Qualified Code(s): I10 - Essential (primary) hypertension
[2022-03-13] MEDS: HEPARIN SOD 5,000 UNIT/0.5 ML VIAL SQ SCH ×2 (14:28→20:21)
[2022-03-13] MEDS: CLOPIDOGREL BISULFATE 75 MG TAB PO SCH (14:28)
[2022-03-13] MEDS: ASPIRIN 81 MG ECTAB PO SCH (14:28)
[2022-03-13] MEDS: ATORVASTATIN 40 MG TAB PO SCH (20:21)
[2022-03-13] MEDS: carvediloL 12.5 MG TAB PO SCH (20:21)
[2022-03-13] MEDS: MELATONIN 3 MG TAB PO SCH (20:21)
[2022-03-13] MEDS: ISOSORBIDE MONO EXTENDED REL 60 MG TABCR PO SCH (20:21)
--- NOTE | 2022-03-14 08:16 | Surgery Progress Note ---
Date of Service March 14, 2022 Assessment & Plan (1) Incarcerated ventral hernia: Plan: 03-14-2022 Is tolerating low fiber diet ok- still some mild nausea when thinking about food, but is improving. Surgical dressing changed. Incision is healing well with no signs of infection. She is passing flatus and moving her bowels. No new concerns. Plan is for discharge to [facility] on Wednesday. Patient seen and examined with Dr. Melvin. 03-13-2022 Advance to low fiber diet She has some return of bowel function She tolerates her low fiber diet today she can be discharged back to [facility] from a surgical standpoint Will talk to medicine to see if there is anything from their standpoint to keep her in the hospital (2) Small bowel obstruction: Admission and Anticipated Discharge Date Admission Date: March 07, 2022 Supervising Physician Co-Signing Physician Notes As per Nguyen Hughes physician assistant teaching professor Patient had a regular diet last night tolerated well no nausea moves her bowels The abdomen is completely benign the incision is healing well no redness or drainage Subjective Patient resting comfortably in bed watching tv. She denies pain. She reports some continued mild nausea (improving) when she thinks of food. She has been passing flatus has moved her bowels. Physical Exam Constitutional: WD/WN, vitals as above Gastrointestinal (Abdomen): Inspection/Auscultation: abdomen normal to inspection; abdomen not distended Percussion/Palpation: abdomen soft; abdomen nontender, no guarding and no hernia Surgical dressing removed and Incision with onofre in place. Incision is clean, dry, intact and well-approximated with no signs of infection or evidence of dehiscence. New dressing applied. Results & Data ([facility]) Vital Signs (Past 12 Hours) Vital Signs Temp Pulse Resp BP Pulse Ox O2 Del Method 03/14/22 07:24 37.2 C 75 20 143/68 H 94 Room Air PG Care Time/CCT Total # of Minutes Spent Total Time Spent with Patient: Total time spent is greater than 50% in coordination of care (as documented) at patient's floor/unit and/or counseling patient: Coding Level of Care Code None Diagnoses Incarcerated ventral hernia K43.6 Small bowel obstruction K56.609
--- NOTE | 2022-03-14 09:03 | Nephrology Progress Note ---
Date of Service March 14, 2022 Assessment & Plan (1) ESRD (end stage renal disease): Plan: * Outpatient Rx is MWF x 4 hours on a 180 optiflux with Qb 400 via LUE AVF, Qd 800. Typically requires 2 K bath. EDW 98.5 kg * HD MWF. BP and volume status acceptable. No acute indication for HD today * Will order PRP, CBC for am (2) Anemia: Plan: * Iron profile acceptable. ELVIA therapy has not been required (3) Small bowel obstruction: Plan: * Secondary to incarcerated ventral hernia. (4) Incarcerated ventral hernia: Plan: * 03/07/22 - ex lap and ventral hernia repair (5) Hypertension: Plan: * BP remains acceptable * Hold Coreg predialysis * Continue to hold Torsemide until oral intake improves Admission and Anticipated Discharge Date Admission Date: March 07, 2022 Subjective Ms. Watson was evaluated in her hospital room this morning. She reports nausea but states that she ate a full meal at dinner last night and kept it down. She denies abdominal pain and reports one BM last evening. Ms. Watson was last dialyzed yesterday for 1300 cc UF. There were no reported complications Review of Systems Constitutional: no fever Eyes: no problem reported Ear, Nose, Mouth, Throat: no problem reported Respiratory: no dyspnea Cardiovascular: no chest pain Gastrointestinal: + nausea; no vomiting and no diarrhea/loose stools Physical Exam Constitutional: not in distress Eyes: PERRL, conjunctivae normal, anicteric sclerae ENMT: external ear and nose normal, oropharynx normal Neck: trachea midline, no thyromegaly Respiratory: normal respiratory effort, lungs clear to auscultation Cardiovascular: Rate/Rhythm: regular rate and regular rhythm Extremities: + edema (chronic LE swelling) and + AV fistula (+bruit) Gastrointestinal (Abdomen): Inspection/Auscultation: normal bowel sounds Percussion/Palpation: abdomen nontender and no guarding Skin: no rashes, warm and dry Neurologic: awake; not confused Results & Data ([facility]) Vital Signs (Past 12 Hours) Vital Signs Temp Pulse Resp BP Pulse Ox O2 Del Method 03/14/22 07:24 37.2 C 75 20 143/68 H 94 Room Air PG Care Time/CCT Total # of Minutes Spent Total Time Spent with Patient: Total time spent is greater than 50% in coordination of care (as documented) at patient's floor/unit and/or counseling patient: Coding Level of Care Code 05673 Subseq Hosp Care Lvl 3 Diagnoses ESRD (end stage renal disease) N18.6 Anemia N18.6; D63.1; Z99.2 Anemia type: due to chronic kidney disease Chronic kidney disease stage: on chronic dialysis Small bowel obstruction K56.609 Incarcerated ventral hernia K43.6 Hypertension I10 Hypertension type: unspecified (1) Anemia Anemia type: due to chronic kidney disease Chronic kidney disease stage: on chronic dialysis Qualified Code(s): N18.6 - End stage renal disease; D63.1 - Anemia in chronic kidney disease; Z99.2 - Dependence on renal dialysis (2) Hypertension Hypertension type: unspecified Qualified Code(s): I10 - Essential (primary) hypertension
[2022-03-14] MEDS: ASPIRIN 81 MG ECTAB PO SCH (09:09)
[2022-03-14] MEDS: carvediloL 12.5 MG TAB PO SCH ×2 (09:09→19:56)
[2022-03-14] MEDS: LOSARTAN POTASSIUM 25 MG TAB PO SCH (09:09)
[2022-03-14] MEDS: HEPARIN SOD 5,000 UNIT/0.5 ML VIAL SQ SCH ×2 (09:09→19:55)
[2022-03-14] MEDS: CLOPIDOGREL BISULFATE 75 MG TAB PO SCH (09:09)
[2022-03-14] MEDS: ISOSORBIDE MONO EXTENDED REL 60 MG TABCR PO SCH (19:55)
[2022-03-14] MEDS: MELATONIN 3 MG TAB PO SCH (19:56)
[2022-03-14] MEDS: ATORVASTATIN 40 MG TAB PO SCH (19:56)
--- NOTE | 2022-03-14 20:10 | Hospitalist Progress Note ---
Date of Service March 14, 2022 Assessment & Plan (1) Incarcerated ventral hernia: Plan: Presented with SBO 2nd to the ventral hernia. POD #7 s/p Exploratory Laparotomy, Partial Omentectomy, and ventral hernia repair - Waqas Love, DO Diet advanced to low fiber bowel function has returned overall doing well from surgical standpoint (2) Non-ST elevation [place] (NSTEMI): Plan: Present early in the stay. Peak HS troponin 79020. Echo with ischemic cardiomyopathy. Last heart cath was 2012 s/p RCA stents; LAD and LCx with coronary disease at that time as well. [facility] [place] -- conservative measures to be employed at this time. cardiac catheterization deferred. Cont asa 81mg daily. Cont plavix 75mg daily. Cont coreg 12.5mg HS and 12.5mg qam on non-HD days. Cont statin. Cont imdur 60mg daily. No ischemic symptoms at this time (3) Ischemic cardiomyopathy: Plan: EF 35-40% on echo this admission. The apex is akinetic, and the basal septum is severely hypokinetic. These findings are consistent with ischemic cardiomyopathy. The echo findings support that she likely had an NSTEMI event perioperatively. HD will provide volume control in setting of ESRD. Cont beta davey. Cont losartan 25mg on Wednesday, Wednesday, , Wednesday (non-HD days). (4) Chronic respiratory failure with hypoxia: Plan: NC O2 2 liters with CPAP at HS for GURPREET. stable o2 sats during the day. (5) CAD (coronary artery disease), [place] coronary artery: Plan: see #2 appreciate cardiology consultation (6) Anemia: Plan: Macrocytic B12, folate, TSH wnl Could have other micronutrient deficiency contributing (copper, etc) Fe studies most c/w anemia of chronic disease likely from #7 below H/H remain stable/acceptable (7) ESRD (end stage renal disease): Plan: appreciate nephrology consultation for HD needs HD schedule - M//F - s/p HD today left arm AV fistula (8) Hypertension: Plan: Continue home carvedilol, isosorbide Continue newly started losartan Holding home torsemide Blood pressures are controlled (9) Hyperlipidemia: Plan: cont statin LDL 52 in 2019 no lipids since check a lipid profile this weekend (10) LBBB (left bundle branch block): Plan: Chronic unchanged (11) Lone atrial fibrillation: Plan: solitary episode years ago cont coreg not on chronic anticoagulation for such tele had been stable with no PAF (12) Sleep apnea: Plan: Continue CPAP at bedtime-AutoPap ranging from 5-10 mmHg (13) Open toe wound: Plan: Right second toe - wound care consult appreciated Plan DVT proph - heparin 5000 BID pt's son, Dr Griffin Watson, updated several times this week Admission and Anticipated Discharge Date Admission Date: March 07, 2022 Subjective patient eating her meal during the visit she is enjoying regular food again she had fleeting nausea today - was very brief, never needed meds for it; never vomited passing flatus/stool no recent cp no recent dyspnea Review of Systems Review of Systems: cv - no orthopnea pulm - no cough GI - denies abd pain Physical Exam Physical Exam: gen - resting comfortably in bed, NAD, eating her meal mouth - MMM neck - no JVD heart - RRR, s1 s2, no murmur lungs - CTA b/l abd - deferred ext - trace edema b/l, pulses both legs 2+ b/l psych - a/o x 3 Results & Data Results & Data ([facility]) Vital Signs (Past 12 Hours) Vital Signs Temp Pulse Resp BP Pulse Ox O2 Del Method 03/14/22 19:31 37.1 C 71 18 118/62 97 Room Air 03/14/22 15:38 36.6 C 76 16 106/44 L 95 Room Air PG Care Time/CCT Total # of Minutes Spent Total Time Spent with Patient: Total time spent is greater than 50% in coordination of care (as documented) at patient's floor/unit and/or counseling patient: Coding Level of Care Code 07645 Subseq Hosp Care Lvl 1 Diagnoses Incarcerated ventral hernia K43.6 Non-ST elevation MN (NSTEMI) I21.4 Ischemic cardiomyopathy I25.5 Chronic respiratory failure with hypoxia J96.11 CAD (coronary artery disease), [place] coronary artery I25.10 Associated angina: without angina Hughes vs. transplanted heart: [place] heart Anemia N18.6; D63.1; Z99.2 Anemia type: due to chronic kidney disease Chronic kidney disease stage: on chronic dialysis ESRD (end stage renal disease) N18.6 Hypertension I10 Hypertension type: unspecified Hyperlipidemia E78.5 Hyperlipidemia type: unspecified LBBB (left bundle branch block) I44.7 Lone atrial fibrillation I48.91 Sleep apnea G47.33 Sleep apnea type: obstructive Open toe wound S91.109A (1) Sleep apnea Sleep apnea type: obstructive Qualified Code(s): G47.33 - Obstructive sleep apnea (adult) (pediatric) (2) Anemia Anemia type: due to chronic kidney disease Chronic kidney disease stage: on chronic dialysis Qualified Code(s): N18.6 - End stage renal disease; D63.1 - Anemia in chronic kidney disease; Z99.2 - Dependence on renal dialysis (3) Hyperlipidemia Hyperlipidemia type: unspecified Qualified Code(s): E78.5 - Hyperlipidemia, unspecified (4) CAD (coronary artery disease), [place] coronary artery Associated angina: without angina [place] vs. transplanted heart: [place] heart Qualified Code(s): I25.10 - Atherosclerotic heart disease of [place] coronary artery without angina pectoris (5) Hypertension Hypertension type: unspecified Qualified Code(s): I10 - Essential (primary) hypertension
[2022-03-15 06:31] LABS: Hematocrit (blood only) 32.9 % (34.1-44.9); Hemoglobin 10.7 g/dl (12.0-16.0); Mean Corpuscular Hgb Conc 32.5 g/dL (32.0-36.0); Mean Corpuscular Volume 104.4 fL (80.0-100.0); Mean Platelet Volume 10.7 fL (9.4-12.3); Platelet Count 171 K/uL (130-400); RDW Coefficient of Variation 13.1 % (11.5-14.5); Red Blood Count 3.15 M/uL (3.93-5.22); White Blood Count 10.85 K/ul (4.8-10.8)
[2022-03-15 06:57] LABS: BUN Creatinine Ratio 6.6 (10-20); Calcium 7.6 mg/dl (8.5-10.1); Creatinine Clr Calc Pharmacy 8.1 ml/min; Est GFR (African American) 7.4 ml/min; Est GFR (Non-African American) 6.3 ml/min; Potassium 4.3 mmol/L (3.5-5.1)
--- NOTE | 2022-03-15 08:11 | Surgery Progress Note ---
Date of Service March 15, 2022 Assessment & Plan (1) Incarcerated ventral hernia: Plan: 03-15-2022 Is tolerating low fiber diet Plan is for discharge to [facility] on Wednesday. Patient seen and examined with Dr. Melvin. (2) Small bowel obstruction: Admission and Anticipated Discharge Date Admission Date: March 07, 2022 Supervising Physician Co-Signing Physician Notes Comfortable without any abdominal issues tolerating a regular diet having had multiple bowel movements The abdomen is completely benign onofre intact without any reaction no drainage in the wound no cellulitis or redness As per Raheel mendoza Subjective tolerating regular diet, large BM this morning Physical Exam Gastrointestinal (Abdomen): Inspection/Auscultation: + abdominal surgical incision (dry, no erythema); abdomen not distended Results & Data ([facility]) Vital Signs (Past 12 Hours) Vital Signs Temp Pulse Resp BP Pulse Ox O2 Del Method 03/15/22 08:08 36.8 C 68 18 94/54 L 95 Room Air PG Care Time/CCT Total # of Minutes Spent Total Time Spent with Patient: Total time spent is greater than 50% in coordination of care (as documented) at patient's floor/unit and/or counseling patient: Coding Level of Care Code None Diagnoses Incarcerated ventral hernia K43.6 Small bowel obstruction K56.609
[2022-03-15] MEDS: carvediloL 12.5 MG TAB PO SCH ×2 (08:43→20:09)
[2022-03-15] MEDS: ASPIRIN 81 MG ECTAB PO SCH (08:43)
[2022-03-15] MEDS: CLOPIDOGREL BISULFATE 75 MG TAB PO SCH (08:43)
[2022-03-15] MEDS: HEPARIN SOD 5,000 UNIT/0.5 ML VIAL SQ SCH ×2 (08:44→20:09)
[2022-03-15] MEDS: LOSARTAN POTASSIUM 25 MG TAB PO SCH (08:44)
--- NOTE | 2022-03-15 08:51 | Nephrology Progress Note ---
Date of Service March 15, 2022 Assessment & Plan (1) ESRD (end stage renal disease): Plan: * Outpatient Rx is MWF x 4 hours on a 180 optiflux with Qb 400 via LUE AVF, Qd 800. Typically requires 2 K bath. EDW 98.5 kg * No acute indication for HD today. Will plan next treatment for am (2) Anemia: Plan: * Iron profile acceptable * Will provide low dose ELVIA w/ next HD treatment (3) Small bowel obstruction: Plan: * Secondary to incarcerated ventral hernia. (4) Incarcerated ventral hernia: Plan: * 03/07/22 - exploratory laparotomy and ventral hernia repair (5) Hypertension: Plan: * BP remains acceptable * Hold Coreg predialysis * Continue to hold Torsemide until oral intake improves Admission and Anticipated Discharge Date Admission Date: March 07, 2022 Subjective Ms. Watson was evaluated in her hospital room this morning. She is tolerating her diet and having regular BM. She voices no new medical concerns Review of Systems Constitutional: no fever Eyes: no problem reported Ear, Nose, Mouth, Throat: no problem reported Respiratory: no dyspnea Cardiovascular: no chest pain Gastrointestinal: no nausea, no vomiting and no diarrhea/loose stools Physical Exam Constitutional: not in distress Eyes: PERRL, conjunctivae normal, anicteric sclerae ENMT: external ear and nose normal, oropharynx normal Neck: trachea midline, no thyromegaly Respiratory: normal respiratory effort, lungs clear to auscultation Cardiovascular: Rate/Rhythm: regular rate and regular rhythm Extremities: + edema (chronic LE swelling) and + AV fistula (+bruit) Gastrointestinal (Abdomen): Inspection/Auscultation: normal bowel sounds Percussion/Palpation: abdomen nontender and no guarding Skin: no rashes, warm and dry Neurologic: awake; not confused Results & Data ([place]) Vital Signs (Past 12 Hours) Vital Signs Temp Pulse Resp BP Pulse Ox O2 Del Method 03/15/22 08:08 36.8 C 68 18 94/54 L 95 Room Air Laboratory Results Laboratory Tests 03/15/22 03/15/22 06:03 06:03 WBC 10.85 H Hgb 10.7 L Hct 32.9 L Plt Count 171 Sodium 137 Potassium 4.3 Chloride 103 Carbon Dioxide 26 BUN 37 H Creatinine 5.57 H* Glucose 108 H PG Care Time/CCT Total # of Minutes Spent Total Time Spent with Patient: Total time spent is greater than 50% in coordination of care (as documented) at patient's floor/unit and/or counseling patient: Coding Level of Care Code 08223 Subseq Hosp Care Lvl 3 Diagnoses ESRD (end stage renal disease) N18.6 Anemia N18.6; D63.1; Z99.2 Anemia type: due to chronic kidney disease Chronic kidney disease stage: on chronic dialysis Small bowel obstruction K56.609 Incarcerated ventral hernia K43.6 Hypertension I10 Hypertension type: unspecified (1) Anemia Anemia type: due to chronic kidney disease Chronic kidney disease stage: on chronic dialysis Qualified Code(s): N18.6 - End stage renal disease; D63.1 - Anemia in chronic kidney disease; Z99.2 - Dependence on renal dialysis (2) Hypertension Hypertension type: unspecified Qualified Code(s): I10 - Essential (primary) hypertension
[2022-03-15] MEDS: ISOSORBIDE MONO EXTENDED REL 60 MG TABCR PO SCH (20:09)
[2022-03-15] MEDS: MELATONIN 3 MG TAB PO SCH (20:09)
[2022-03-15] MEDS: ATORVASTATIN 40 MG TAB PO SCH (20:09)
--- NOTE | 2022-03-16 06:06 | Communication Note ---
Date of Service: March 15, 2022 Chart check -- vital signs remain stable. Patient on regular diet and tolerating such. Dispo - [facility], surgery hoping for Friday 03/16 discharge . patient will need low-dose losartan due to ischemic cardiomyopathy. would only give such on non-HD days. would d/c torsemide to allow more BP room and she is on HD for volume control. My partners will continue to follow. Surya Gipson MD
[2022-03-16] MEDS ORDERED: EPOETIN ALFA 4,000 UNIT/ML VIAL IV SCH (07:00)
[2022-03-16] MEDS ORDERED: SODIUM CHLORIDE 0.9% 1000ML 1,000 ML IV PRN (07:00)
[2022-03-16] MEDS ORDERED: HEPARIN SOD (PORCINE) 1000 UNIT/ML IV SCH (07:00)
--- NOTE | 2022-03-16 08:42 | Nephrology Progress Note ---
Date of Service March 16, 2022 Assessment & Plan (1) ESRD (end stage renal disease): Plan: * Outpatient Rx is MWF x 4 hours on a 180 optiflux with Qb 400 via LUE AVF, Qd 800. Typically requires 2 K bath. EDW 98.5 kg * HD orders have been entered into EMR and HD RN notified * CBC, PRP in am (2) Anemia: Plan: * Iron profile acceptable * Will provide low dose ELVIA w/ HD today (3) Small bowel obstruction: Plan: * Secondary to incarcerated ventral hernia. (4) Incarcerated ventral hernia: Plan: * 03/07/22 - exploratory laparotomy and ventral hernia repair (5) Hypertension: Plan: * BP remains acceptable * Hold Coreg predialysis * Continue to hold Torsemide until oral intake improves Admission and Anticipated Discharge Date Admission Date: March 07, 2022 Subjective Ms. Watson was evaluated in her hospital room this morning. She is tolerating her diet and having regular BM. Ms. Watson voices no new medical concerns. She is awaiting HD this am Review of Systems Constitutional: no fever Eyes: no problem reported Ear, Nose, Mouth, Throat: no problem reported Respiratory: no dyspnea Cardiovascular: no chest pain Gastrointestinal: no nausea, no vomiting and no diarrhea/loose stools Physical Exam Constitutional: not in distress Eyes: PERRL, conjunctivae normal, anicteric sclerae ENMT: external ear and nose normal, oropharynx normal Neck: trachea midline, no thyromegaly Respiratory: normal respiratory effort, lungs clear to auscultation Cardiovascular: Rate/Rhythm: regular rate and regular rhythm Extremities: + edema (chronic LE swelling) and + AV fistula (+bruit) Gastrointestinal (Abdomen): Inspection/Auscultation: normal bowel sounds Percussion/Palpation: abdomen nontender and no guarding Skin: no rashes, warm and dry Neurologic: awake; not confused Results & Data ([facility]) Vital Signs (Past 12 Hours) Vital Signs Temp Pulse Resp BP Pulse Ox O2 Del Method 03/16/22 08:11 36.7 C 72 18 118/52 L 94 Room Air 03/16/22 03:41 36.9 C 80 20 118/55 L 95 Room Air 03/15/22 23:22 36.9 C 68 19 103/49 L 96 Room Air PG Care Time/CCT Total # of Minutes Spent Total Time Spent with Patient: Total time spent is greater than 50% in coordination of care (as documented) at patient's floor/unit and/or counseling patient: Coding Level of Care Code 86488 Subseq Hosp Care Lvl 3 Diagnoses ESRD (end stage renal disease) N18.6 Anemia N18.6; D63.1; Z99.2 Anemia type: due to chronic kidney disease Chronic kidney disease stage: on chronic dialysis Small bowel obstruction K56.609 Incarcerated ventral hernia K43.6 Hypertension I10 Hypertension type: unspecified (1) Anemia Anemia type: due to chronic kidney disease Chronic kidney disease stage: on chronic dialysis Qualified Code(s): N18.6 - End stage renal disease; D63.1 - Anemia in chronic kidney disease; Z99.2 - Dependence on renal dialysis (2) Hypertension Hypertension type: unspecified Qualified Code(s): I10 - Essential (primary) hypertension
--- NOTE | 2022-03-16 09:02 | Surgery Progress Note ---
Date of Service March 16, 2022 Assessment & Plan (1) Incarcerated ventral hernia: Plan: s/p exlap with reduction of ventral hernia patient is doing well. tolerating a diet. + bowel function. denies pain incisions c/d/i with midline onofre, will likely d/c these today appears she is scheduled for her dialysis today will discuss with medicine, but she is okay for dispo to [facility] today from our point of view pt seen/examined with Dr. Melvin Admission and Anticipated Discharge Date Admission Date: March 07, 2022 Supervising Physician Co-Signing Physician Notes As per Rocío Seth physician business office assistant The abdomen benign the incision is healed well the onofre still intact no drainage or redness 9 days postop we will remove the onofre and apply Steri-Strips prior to discharge Will discuss with Dr. Waqas Love regarding follow-up given her dialysis schedule and inclement weather and mobility issues may be huerta to do virtual visit at most rather than have her come to the office Subjective Patient feels well. Tolerating diet. Pain controlled. + bowel function. Physical Exam Physical Exam: awake/alert, no distress Gastrointestinal (Abdomen): Inspection/Auscultation: + abdominal surgical incision (midline onofre, incisions c/d/i) Percussion/Palpation: abdomen soft; abdomen nontender Results & Data ([facility]) Vital Signs (Past 12 Hours) Vital Signs Temp Pulse Resp BP Pulse Ox O2 Del Method 03/16/22 08:11 36.7 C 72 18 118/52 L 94 Room Air 03/16/22 03:41 36.9 C 80 20 118/55 L 95 Room Air 03/15/22 23:22 36.9 C 68 19 103/49 L 96 Room Air PG Care Time/CCT Total # of Minutes Spent Total Time Spent with Patient: Total time spent is greater than 50% in coordination of care (as documented) at patient's floor/unit and/or counseling patient: Coding Level of Care Code None Diagnoses Incarcerated ventral hernia K43.6
[2022-03-16] MEDS: CLOPIDOGREL BISULFATE 75 MG TAB PO SCH (10:07)
[2022-03-16] MEDS: ASPIRIN 81 MG ECTAB PO SCH (10:07)
[2022-03-16] MEDS: HEPARIN SOD 5,000 UNIT/0.5 ML VIAL SQ SCH (10:08)
[2022-03-16] MEDS: HEPARIN SOD (PORCINE) 1000 UNIT/ML IV SCH (12:55)
--- NOTE | 2022-03-18 13:02 | Discharge Summary ---
Date of Service March 16, 2022 Admission HPI Per Admitting Provider This is an 87-year-old female who presented to the ER a few hours ago with sharp abdominal pain. She states the pain began yesterday evening after dinner. She does have a known umbilical hernia and she states that the area became more swollen and painful around her umbilicus after dinner. The pain continued to get worse and worse and more sharp. She then started to have nausea and emesis and was transferred here for further evaluation. She denies any fevers or chills. He does take Plavix for history of vascular disease. She is on dialysis. She does have a history of heart failure as well. She cannot member her last bowel movement. Principal Diagnosis incarcerated ventral hernia elevated troponin NSTEMI Discharge Exam awake/alert, no distress Respiratory normal respiratory effort Gastrointestinal (Abdomen) Inspection/Auscultation: + abdominal surgical incision (midline onofre, incisions c/d/i); abdomen not distended Percussion/Palpation: abdomen soft; abdomen nontender Discharge Data Allergies Allergy/AdvReac Type Severity Reaction Status Date / Time ampicillin Allergy Mild pruritus Verified 04/15/21 06:33 lisinopril Allergy Unknown Unknown Verified 04/15/21 06:33 reaction streptomycin Allergy Unknown Unknown Verified 04/15/21 06:33 reaction sulfamethoxazole AdvReac Intermediate "walking Verified 04/15/21 06:33 on eggs shells" feeling trimethoprim AdvReac Intermediate "walking Verified 04/15/21 06:33 on eggs shells" feeling Consultations 03/07/22 05:32 ED Decision to Admit Stat 03/07/22 09:36 Consult Hospitalist Routine Consult Nephrology Routine 03/08/22 09:42 Consult Cardiology Routine Procedures Performed Operation Date: 03/07/22 06:00 Actual Procedures p Exploratory Laparotomy, Partial Omentectomy - Waqas Love DO s Incarcerated Ventral Hernia Repair - Waqas Love DO Ordered Studies 03/07/22 04:27 CT abd pelvis wo con Urgent Hospital Course (1) Incarcerated ventral hernia: This is an 87y F who presented to the [facility] ED on 03/07/22 with abdominal pain. A CT a/p was obtained that revealed incarcerated ventral hernia containing small bowel. She was kept NPO with IVF and consented for surgical intervention. She went to the OR with Dr. Love where she underwent an exploratory laparotomy, partial omentectomy, and reduction of hernia. The patient tolerated the procedure well, see op note for full details. Post operatively the patient was transferred to the telemetry unit in stable condition. Nephrology followed throughout her hospitalization given history of renal disease on routine dialysis. She did have elevated troponin which prompted cardiology's assistance given concern over NSTEMI. They followed her throughout her stay and made recommendations as appropriate. The hospitalists were also on board for medical management. Post op the patient's diet was slowly advanced as tolerated. She had some ongoing mild nausea the first few post op days, but it was manageable. As she began having bowel function her diet was advanced without issues. Her home meds were resumed as able, with some adjustments made to her cardiac ones prior to discharge given NSTEMI. Her pain remained controlled on prn medications. Incision remained c/d/i without signs of infection. The randy drain and onofre were both removed prior to discharge. On 03/16 the patient was deemed stable for discharge back to [facility]. Total Time Total Time Spent Total Time Spent (In Minutes): 15 Discharge Plan Discharge Items Patient Disposition: Home - Self-Care Reason For Visit: Nausea, Vomiting Discharge Diagnosis: exploratory laparotomy repair of incarcerated ventral hernia Activity: Per Instructions section Lifting: No more than 10 pounds Bathing Comment: may shower; no soaking in tubs/pools Exercise/Sports: Wait until after follow-up appointment Non-emergency contact: Primary Care Provider and Surgeon Call non-emergency contact if: you have any medication questions, your symptoms worsen, your pain is not controlled, your pain is concerning for you, you have a fever, your temperature is above 101.5, your wound has increased redness, your wound has increased drainage and your wound pain has increased Follow-up/Referrals: Nick Lopez MD [Physician] - 03/27/22 2:30 pm (Follow up: Dr Lopez March 27, 2022 @ 2:30pm ) Waqas Love DO [Physician] - 03/26/22 2:00 pm (Please call to schedule follow up in clinic within [address] Lopez office will call patient with appointment time) Daniela Jones [Primary Care Provider] - Diet: Regular Addtl Attending Provider Instructions: You have been started on a new medication called Losartan to take on Sundays, Wednesday, , Wednesday (days you are not undergoing dialysis). You have been asked to hold your diuretic, Torsemide, for now You have small white bandages over your incisions called Steri strips. You may shower with these on. They will tend to fall off on their own within 7-10 days. Pending Studies at Discharge: No Stand-Alone Forms: My [facility] [employer]GRIM[employer], Smoking Cessation Medications and DC Order Prescriptions: New losartan 25 mg Tablet 25 mg PO SuTuThSa@0900 30 Days Qty: 18 0RF Continued ergocalciferol (vitamin D2) 1,250 mcg (50,000 unit) capsule 50,000 unit PO MONTHLY Qty: 3 1RF Rx Instructions: every of month (DME) CPAP Supplies Misc See Rx Instructions .ROUTE .MEDSUPPLY Qty: 1 0RF Rx Instructions: As directed clopidogrel [Plavix] 75 mg tablet 75 mg PO QAM aspirin 81 mg Tablet,Delayed Release (Dr/Ec) 81 mg PO QAM nitroglycerin [Nitrostat] 0.4 mg Tablet, Sublingual 0.4 mg sublingual UD PRN (Reason: chest pain) Qty: 25 0RF Rx Instructions: q5min as needed for chest pain calcium acetate(phosphat bind) 667 mg Tablet 2,001 mg PO TIDM Rx Instructions: for low phos level per dialysis nystatin 100,000 unit/gram Cream 1 applic TOPICAL BID PRN (Reason: Rash) Rx Instructions: apply to abdominal folds carvedilol 25 mg Tablet 12.5 mg PO QAM Rx Instructions: every Wednesday, , Wednesday, and Wednesday for pulm HTN bisacodyl [Dulcolax (bisacodyl)] 10 mg Suppository 10 mg IL Q48H PRN (Reason: Constipation) Rx Instructions: 48 hr no BM acetaminophen [Tylenol] 325 mg Tablet 650 mg PO Q4H PRN (Reason: Pain) tramadol 50 mg Tablet 25 mg PO TID PRN (Reason: Pain) acetaminophen 500 mg Capsule 500 mg PO BID phenyleph-shark [id number] Cream 1 applic IL DAILY PRN (Reason: Hemorrhoids) ProSource 10-100 gram-kcal/30 mL Liquid 1 ea PO BID atorvastatin 80 mg tablet 80 mg PO HS carvedilol 25 mg tablet 12.5 mg PO HS isosorbide mononitrate 60 mg tablet extended release 24 hr 60 mg PO QPM Nephrocaps 1 cap PO DAILY sennosides [senna] 8.6 mg tablet 8.6 mg PO QAM Rx Instructions: and 17.2mg po qhs nystatin 100,000 unit/gram powder 1 applic TOPICAL BID PRN (Reason: skin fold rash) Colace 100 mg PO BID Discontinued torsemide 10 mg Tablet 10 mg PO QPM Rx Instructions: M/W/F torsemide 10 mg Tablet 10 mg PO QAM Rx Instructions: Tue/Thur/Sat/Sun Discharge Orders: Discharge Order (Routine); Ordered 03/16/22 Ordered By: Rocío Davidson Admission Data Admit Date/Time: 03/07/22 08:24 Attending Provider: Waqas Love Admit Provider: Aj Bravo Jr Primary Care Provider: Daniela Jones Other Providers: Waqas Love ; Scot Devlin ; Gordy Alvarado ; Surya Gipson Charles C. ; Daniela Jones Other Interventions: Discharge Summary Assessment (RN) Last Done: 03/16/22 14:24 Coding Level of Care Code D/C DAY MANAGEMENT <30 MINS Diagnoses Incarcerated ventral hernia K43.6
== END 2022-03-16 16:16 | disposition home or self-care (01) | DRG 353 ==
LOC: ED 04:16 → OR 06:28 → 2E 06:28